=== PATIENT | male | born 1955 | race Caucasian/White ===

== ENCOUNTER → 2018-05-13 14:44 | Outpatient (CLI) | payer OTHER, MEDICAID, SELFPAY ==
[2018-05-13 16:59] LABS: Blood Urea Nitrogen 14 mg/dL (9-20); Calcium 9.5 mg/dL (8.4-10.2); Carbon Dioxide 24 mmol/L (22-32); Chloride 102 mmol/L (98-107); Cholesterol 182 mg/dL (140-199); Estimated Glomerular Filt Rate > 60.0 mL/min (>60); Glucose 93 mg/dL (80-110); HDL Cholesterol 44 mg/dL (40-60); HEMOLYSIS < 15 (0-50); LDL Cholesterol Calculated 91 mg/dL (<100); Potassium 4.4 mmol/L (3.4-5.1); Sodium 139 mmol/L (137-145); Triglycerides 233 mg/dL (35-150)
[2018-05-13 17:09] LABS: Vitamin D 25 Hydroxy (D3) 27.4 ng/mL (30.0-100.0)
[2018-05-16 20:34] LABS: Testosterone Free 141.2 pg/mL (35.0-155.0); Testosterone Total 770 ng/dL (250-1100)
== END ==
PROVIDERS: PCP Student in an Organized Health Care Education/Training Program; Visit Provider Student in an Organized Health Care Education/Training Program
DX: E29.1 Testicular hypofunction (principal); I10 Essential (primary) hypertension; E78.00 Pure hypercholesterolemia, unspecified; E55.9 Vitamin D deficiency, unspecified; R35.1 Nocturia; Z12.5 Encounter for screening for malignant neoplasm of prostate
CPT/HCPCS: 36415; 80048; 80061; 82306; 84402; 84403; G0103

== ENCOUNTER → 2019-12-07 11:24 | Outpatient (CLI) | payer MEDICARE, MEDICAID, SELFPAY ==
[2019-12-07 12:59] LABS: BUN Creatinine Ratio 22.2 (6-22); Blood Urea Nitrogen 16 mg/dL (9-20); Calcium 9.9 mg/dL (8.4-10.2); Carbon Dioxide 28 mmol/L (22-32); Chloride 102 mmol/L (98-107); Estimated Glomerular Filt Rate > 60.0 mL/min (>60); Glucose 88 mg/dL (80-110); HEMOLYSIS < 15 (0-50); Sodium 138 mmol/L (137-145)
[2019-12-07 13:26] LABS: Prostate Specific Antigen Scrn 1.05 ng/mL (0.1-4.0)
[2019-12-07 13:28] LABS: Testosterone 226 ng/dL (71.8-623)
== END ==
PROVIDERS: PCP Student in an Organized Health Care Education/Training Program; Referring Provider Student in an Organized Health Care Education/Training Program; Visit Provider Student in an Organized Health Care Education/Training Program
DX: I10 Essential (primary) hypertension (principal); E29.1 Testicular hypofunction; Z12.5 Encounter for screening for malignant neoplasm of prostate
CPT/HCPCS: 36415; 80048; 84403; G0103

== ENCOUNTER → 2019-12-24 09:16 | Outpatient (CLI) | payer MEDICARE, MEDICAID, SELFPAY ==
[2019-12-26 13:00] LABS: Fecal Immunochemical Test Negative (Negative)
== END ==
PROVIDERS: PCP Student in an Organized Health Care Education/Training Program; Referring Provider Student in an Organized Health Care Education/Training Program; Visit Provider Student in an Organized Health Care Education/Training Program
DX: Z12.11 Encounter for screening for malignant neoplasm of colon (principal)
CPT/HCPCS: 82274

== ENCOUNTER → 2020-05-12 12:22 | Outpatient (CLI) | payer MEDICARE, MEDICAID, SELFPAY ==
[2020-05-12] MEDS: COVID-19 VACC, Ad26(JANSSEN)/PF 0.5 ML IM (12:38)
== END ==
PROVIDERS: PCP Student in an Organized Health Care Education/Training Program; Visit Provider Internal Medicine
DX: Z23 Encounter for immunization (principal)
CPT/HCPCS: 0031A; 91303

== ENCOUNTER → 2020-06-01 10:05 | Outpatient (CLI) | payer MEDICARE, MEDICAID, SELFPAY ==
--- NOTE | 2020-06-01 10:08 | DI.RAD.S_ITS ---
PROCEDURE: XR LUMBAR SPINE 2-3V INDICATIONS: Back pain TECHNIQUE: 3 views of the lumbar spine were acquired. COMPARISON: None. FINDINGS: Bones: 5 [id number] vertebrae are present. There is mild straightening of normal lumbar lordosis. Moderate-severe multilevel spondylosis of the imaged spine with disc space loss and prominent degenerative endplate changes as well as prominent endplate osteophyte formation most notably at T11-T12, T12-L1, L4-L5, and L5-S1. However, findings are most severe at L4-5 and L5-S1 with there is also moderate-severe facet arthropathy at these levels. There is suggestion of neural foraminal narrowing at these levels. No acute vertebral body compression fractures. No suspicious bony lesions. Soft tissues: Overlying bowel gas pattern is normal. No suspicious soft tissue calcifications. IMPRESSION: Lumbar spine without acute fracture or malalignment. Moderate-severe multilevel lumbar spondylosis as detailed above but most severe at L4-5 and L5-S1 where there is suspected moderate neural foraminal narrowing particularly at L5-S1. Dictated by: Josh Taylor M.D. on 06/01/2020 at 16:36 Approved by: Josh Taylor M.D. on 06/01/2020 at 16:41
--- NOTE | 2020-06-01 10:08 | DI.RAD.S_ITS ---
PROCEDURE: XR KNEE LT 3V INDICATIONS: Knee pain TECHNIQUE: 3 views of the knee were acquired. COMPARISON: None. FINDINGS: Bones: No acute fractures or dislocations. No suspicious bony lesions. Mild tricompartmental degenerative changes of the left knee with mild medial femorotibial compartment joint space narrowing. Nonaggressive appearing cortically based oval sclerotic focus overlying the medial aspect of the proximal left tibial diaphysis. Soft tissues: No substantial joint effusion. No suspicious soft tissue calcifications. IMPRESSION: Left knee without acute fracture or dislocation. Tricompartmental left knee osteoarthrosis with mild medial femorotibial compartment joint space narrowing. Dictated by: Josh Taylor M.D. on 06/01/2020 at 16:32 Approved by: Josh Taylor M.D. on 06/01/2020 at 16:34
--- NOTE | 2020-06-01 10:08 | DI.RAD.S_ITS ---
PROCEDURE: XR KNEE RT 3V INDICATIONS: Knee pain TECHNIQUE: 3 views of the knee were acquired. COMPARISON: None. FINDINGS: Bones: No acute fractures or dislocations. No suspicious bony lesions. Tricompartmental degenerative changes of the right knee with medial femorotibial compartment joint space narrowing. Distal quadriceps tendon enthesophyte at the superior pole the patella. Soft tissues: No joint effusion. No suspicious soft tissue calcifications. IMPRESSION: Right knee without acute fracture or dislocation. Tricompartmental osteoarthrosis with medial femorotibial compartment joint space narrowing. Distal quadriceps enthesopathy. Dictated by: Josh Taylor M.D. on 06/01/2020 at 16:35 Approved by: Josh Taylor M.D. on 06/01/2020 at 16:36
[2020-06-01 10:34] LABS: Hematocrit 44.6 % (41-53); Hemoglobin 14.5 g/dL (13.5-17.5); Mean Corpuscular HGB Conc 32.6 % (30-36); Mean Corpuscular Hemoglobin 28.5 PG (26-34); Mean Corpuscular Volume 87.5 fL (80-100); Platelet Count 327 X10^3/uL (150-400); Red Cell Distribution Width 13.5 % (11.6-14.8); White Blood Cell Count 7.1 X10^3/uL (4.5-11.0)
[2020-06-01 11:12] LABS: Blood Urea Nitrogen 18 mg/dL (9-20); Carbon Dioxide 27 mmol/L (22-32); Chloride 99 mmol/L (98-107); Estimated Glomerular Filt Rate > 60.0 mL/min (>60); Glucose 113 mg/dL (80-110); HEMOLYSIS < 15 (0-50); Potassium 4.4 mmol/L (3.4-5.1); Sodium 136 mmol/L (137-145)
[2020-06-06 07:31] LABS: Testosterone % Fr + Wkly bound 6.1 % (9.0-46.0); Testosterone Fr+Wkly bound 29.3 ng/dL (40.0-250.0); Testosterone, Total 480.3 ng/dL (264.0-916.0)
== END ==
PROVIDERS: PCP Student in an Organized Health Care Education/Training Program; Referring Provider Student in an Organized Health Care Education/Training Program; Visit Provider Student in an Organized Health Care Education/Training Program
DX: M25.561 Pain in right knee (principal); M54.9 Dorsalgia, unspecified; M25.562 Pain in left knee; E29.1 Testicular hypofunction; I10 Essential (primary) hypertension; Z79.899 Other long term (current) drug therapy
CPT/HCPCS: 36415; 72100; 73562; 80048; 84403; 85027

== ENCOUNTER → 2020-07-10 09:22 | Outpatient (CLI) | payer MEDICARE, MEDICAID, SELFPAY ==
[2020-07-10 10:36] LABS: Hematocrit 47.6 % (41-53)
[2020-07-14 20:59] LABS: Testosterone % Fr + Wkly bound 25.2 % (9.0-46.0); Testosterone Fr+Wkly bound 212.4 ng/dL (40.0-250.0)
== END ==
PROVIDERS: PCP Student in an Organized Health Care Education/Training Program; Referring Provider Student in an Organized Health Care Education/Training Program; Visit Provider Student in an Organized Health Care Education/Training Program
DX: E29.1 Testicular hypofunction (principal)
CPT/HCPCS: 36415; 84403; 85014; 85018

== ENCOUNTER → 2020-09-04 11:27 | Outpatient (CLI) | payer MEDICARE, MEDICAID, SELFPAY ==
--- NOTE | 2020-09-04 11:29 | DI.MRI.S_ITS ---
PROCEDURE: MR LUMBAR SPINE WO CON INDICATIONS: Lumbar radiculopathy TECHNIQUE: Noncontrast sagittal T1 spin echo and T2 fast echo, sagittal STIR, axial T1 and T2 fast spin echo through the lumbar spine. In cases with scoliosis, additional coronal T2 fast spin echo may be performed. COMPARISON: None. FINDINGS: Image quality: Excellent. Alignment and Curvature: There is normal bony alignment. Bone Marrow: Degenerative endplate changes present at T12-L1, L4-5 and L5-S1. Spinal Cord: Conus medullaris terminates at the L1 level. Visualized cord demonstrates normal signal and size. Paraspinous Soft Tissues: No paravertebral masses. T12-L1: Moderate disc space narrowing with degenerative endplate changes and circumferential disc bulge results in mild central stenosis with moderate left and mild right foraminal stenosis L1-L2: The disc height is preserved. Mild circumferential disc bulge present without central or foraminal stenosis L2-L3: Disc height is preserved. Mild circumferential disc bulge with hypertrophic facet joints present. No central stenosis. Mild right and left foraminal stenosis present. L3-L4: Mild disc height loss with circumferential disc bulge and ligamentum flavum laxity combines with hypertrophic facet joints result in moderate central stenosis. Moderate right and severe left foraminal stenosis present. L4-L5: Disc height loss and circumferential disc bulge combines with hypertrophic facet joints result in moderate central stenosis. Moderate right and severe left foraminal stenosis present. L5-S1: Disc height loss with circumferential disc bulge present without central stenosis. Severe bilateral foraminal stenosis noted. IMPRESSION: 1. Multilevel degenerative disc disease and facet arthropathy resulting in varying degrees of central and foraminal stenosis including severe foraminal stenosis at L4-5 and L5-S1 Dictated by: Faraz Zazueta M.D. on 09/05/2020 at 11:58 Approved by: Faraz Zazueta M.D. on 09/05/2020 at 12:06
== END ==
PROVIDERS: PCP Student in an Organized Health Care Education/Training Program; Referring Provider Physical Medicine & Rehabilitation; Visit Provider Physical Medicine & Rehabilitation
DX: M48.07 Spinal stenosis, lumbosacral region (principal); M48.061 Spinal stenosis, lumbar region without neurogenic claudication; M51.16 Intervertebral disc disorders with radiculopathy, lumbar region; M47.26 Other spondylosis with radiculopathy, lumbar region
CPT/HCPCS: 72148

== ENCOUNTER → 2020-09-19 08:02 | Outpatient (CLI) | payer MEDICARE, MEDICAID, SELFPAY ==
[2020-09-19 12:28] LABS: COVID19 -Nasal RAPID Negative (Negative)
== END ==
PROVIDERS: PCP Student in an Organized Health Care Education/Training Program; Visit Provider Physical Medicine & Rehabilitation
DX: Z20.822 Contact with and (suspected) exposure to COVID-19 (principal)
CPT/HCPCS: 87635; C9803

== ENCOUNTER 2020-09-21 07:21 | Outpatient (CLI) | payer MEDICARE, MEDICAID, SELFPAY ==
[2020-09-21] VITALS (7 sets, daily range): BP systolic 132–186; BP diastolic 74–109; PULSE 82–94; RESP 10–18; TEMP 36.9; O2SAT 95–99
--- NOTE | 2020-09-21 07:23 | DI.RAD.S_ITS ---
PROCEDURE: PAIN L/S FACET INJ/BLK 1ST WALTER COMPARISON: [facility], MR, MR LUMBAR SPINE WO CON, 09/04/2020, 11:58. INDICATIONS: SPONDYLOSIS FINDINGS: Fluoroscopic spot filming was performed to verify placement of a spinal needles on both sides at the L4-L5 and L5-S1 levels, as labeled on the films. Appropriate location of the needle tips was confirmed by injection of iodinated contrast. IMPRESSION: Intraprocedural examination within normal limits. Dictated by: Ronald Gaming M.D. on 09/21/2020 at 10:11 Approved by: Ronald Gaming M.D. on 09/21/2020 at 10:12
[2020-09-21] MEDS: fentaNYL 100 MCG/2 ML INJ 50 MCG IV (08:17)
[2020-09-21] MEDS: MIDAZOLAM 5 MG/5 ML VIAL IV (08:20)
[2020-09-21] MEDS: BETAMETHASONE 30 MG/5 ML MDV 12 MG INJ (08:25)
[2020-09-21] MEDS: IOPAMIDOL 15 ML VIAL 3 ML INJ (08:25)
[2020-09-21] MEDS: BUPIVACAINE 0.5% (PF) VIAL 5 ML INJ (08:25)
[2020-09-21] MEDS: LIDOCAINE 1% 20 ML 10 ML INJ (08:26)
--- NOTE | 2020-09-21 08:36 | P.PCN_ITS ---
Date/Time/Diagnoses Date of procedure: 09/21/20 Time of procedure: 08:36 Pre-procedure diagnosis: 1. FACET ARTHROPATHY 2. AXIAL LBP 3. MULTILEVEL DDD Post-procedure diagnosis: same Procedure Notes Procedure: 1. FLUOROSCOPICALLY GUIDED CONTRAST CONTROLLED FACET JOINT INJECTIONS BILATERAL L4/5, L5/S1 Indications: Jamal is referred by Dr. Oconnor for treatment of Axial LBP Physician: Franco Morin Total Fluoroscopy time (seconds): 12 Total sedation minutes: 12 Complications: none Procedure in detail & Post-procedure care: FINDINGS Multilevel Facet Arthropathy with Clinically significant axial LBP DESCRIPTION OF PROCEDURE Fluoroscopically guided, contrast-controlled bilateral L4/5, L5/S1 facet joint injections. Following review of allergy and review of potential side effects and complications, including, but not necessarily limited to, infection, allergic reaction, local tissue breakdown, stroke, temporary or permanent nerve injury, paralysis, and possible , the patient indicated that the patient understood and agreed to proceed. An informed consent document was signed by the patient, witnessed by a nurse, and placed in the patient's chart. Additionally, other treatment options including medications, modalities, and physical therapy were reviewed with the patient. After review of previous anaesthesic history and IV conscious sedation the patient was deemed safe to proceed with today?s procedure with IV conscious sedation as ASA class II designation. Safety time-out was performed to confirm patient ID, procedure to be performed and site of procedure. IV sedation was accomplished with a combination of 3mg of Versed and 50mcg of Fentanyl was administered by the RN after DO order, titrated to patient comfort during the course of the procedure while the patient remained responsive to all verbal commands In the prone position, following sterile prep and drape of the lumbar region, the posterior aspect of the L4/5, L5/S1 facet joints were identified fluoroscopically. The skin was anesthetized via a 25-gauge 1.5inch needle with 1% lidocaine solution into the corresponding facet joints. At this point, a 22- gauge 3.5-inch spinal needle was atraumatically introduced and advanced under fluoroscopic guidance into the corresponding facet joints. Following negative aspiration, injections of approximately 0.2cc of Isovue 200 confirmed interar ticular placement without vascular uptake. The identical procedure was then performed at the L4/5, L5/S1 facet joints on the left. Radiological data, including multiple fluoroscopic views of the lumbosacral spine, reveal a spinal needle at the L4/5, L5/S1 facet joints bilaterally. Subsequent views show flow of contrast material both superiorly and inferiorly within the joint space without vascular or intrathecal uptake. At this point, a total of 0.5cc including a mixture of 0.25cc Marcaine and 0.25cc betamethasone was injected without complication into each of the corresponding facet joints. The patient tolerated the procedure well without signs or symptoms of complications prior to transfer to the recovery area continued monitoring without incident. The patient was then transferred to the recovery area where they were observed for an appropriate period of time after the injection. The patient reported a VAS score of 7 prior to the procedure and a post- procedure VAS of 0. POST OP INSTRUCTIONS The patient was provided a Pain Log to continue to record their response to the target-specific procedure prior to follow-up visit with their referring physician. Additionally, specific post-injection care instructions and a contact number to our office were provided if concerns arise regarding possible complications associated with the procedure are suspected.
== END 2020-09-21 08:50 | disposition home or self-care (01) ==
PROVIDERS: PCP Student in an Organized Health Care Education/Training Program; Referring Provider Physical Medicine & Rehabilitation; Visit Provider Physical Medicine & Rehabilitation
DX: M47.816 Spondylosis without myelopathy or radiculopathy, lumbar region (principal); M47.817 Spondylosis without myelopathy or radiculopathy, lumbosacral region; M51.36 Other intervertebral disc degeneration, lumbar region; M51.37 Other intervertebral disc degeneration, lumbosacral region; M54.5 Low back pain
CPT/HCPCS: 64493; 64494; 99152; J0702; J2250; J3010

== ENCOUNTER → 2020-10-31 09:46 | Outpatient (CLI) | payer MEDICARE, MEDICAID, SELFPAY ==
[2020-10-31 13:25] LABS: COVID19 -Nasal RAPID Negative (Negative)
== END ==
PROVIDERS: PCP Student in an Organized Health Care Education/Training Program; Visit Provider Physical Medicine & Rehabilitation
DX: Z20.822 Contact with and (suspected) exposure to COVID-19 (principal)
CPT/HCPCS: 87635; C9803

== ENCOUNTER 2020-11-02 12:55 | Outpatient (CLI) | payer MEDICARE, MEDICAID, SELFPAY ==
[2020-11-02] VITALS (8 sets, daily range): BP systolic 112–159; BP diastolic 59–115; PULSE 74–105; RESP 14–21; TEMP 36.1–36.3; O2SAT 95–100
--- NOTE | 2020-11-02 12:57 | DI.RAD.S_ITS ---
PROCEDURE: PAIN L/S FACET INJ/BLK 1ST [facility]ALTER COMPARISON: [facility], , PAIN L/S FACET INJ/BLK 1ST [facility]ALTER, 09/21/2020, 8:23. INDICATIONS: SPONDYLOSIS FINDINGS: Fluoroscopic spot filming was performed to verify placement of spinal needles on both sides at the L4, L5, and S1 levels, as labeled on the films. Appropriate location of the needle tips was confirmed by injection of iodinated contrast. IMPRESSION: Intraprocedural examination within normal limits. Dictated by: Ronald Gaming M.D. on 11/02/2020 at 13:13 Approved by: Ronald Gaming M.D. on 11/02/2020 at 13:13
[2020-11-02] MEDS: fentaNYL 100 MCG/2 ML INJ 50 MCG IV (13:44)
[2020-11-02] MEDS: LIDOCAINE 1% 20 ML 10 ML INJ (13:47)
[2020-11-02] MEDS: BUPIVACAINE 0.5% (PF) VIAL 5 ML INJ (13:47)
[2020-11-02] MEDS: IOPAMIDOL 15 ML VIAL 3 ML INJ (13:47)
[2020-11-02] MEDS: MIDAZOLAM 5 MG/5 ML VIAL IV (13:47)
--- NOTE | 2020-11-02 13:59 | PM.PROC.IR.1 ---
Date/Time/Diagnoses Date of procedure: 11/02/20 Time of procedure: 13:59 Pre-procedure diagnosis: 1. FACET ARTHROPATHY Post-procedure diagnosis: same Procedure Notes Procedure: 1. BILATERAL- L4, L5 and S1 DIAGNOSTIC MB BLOCKS with LA Anesthetic Indications: Jamal is referred by Dr. Oconnor for treatment of Bilateral Axial LBP. Physician: Franco Morin Total Fluoroscopy time (seconds): 12 Total sedation minutes: 12 Complications: none Procedure in detail & Post-procedure care: DESCRIPTION OF PROCEDURE Fluoroscopically guided, contrast-controlled bilateral L4, L5 and S1 medial branch blocks with 0.5cc of 0.5% Marcaine. Following review of allergy and review of potential side effects and complications, including, but not necessarily limited to, infection, allergic reaction, local tissue breakdown, nerve injury, paralysis, stroke and possible , the patient indicated that the patient understood and agreed to proceed. An informed consent document was signed by the patient, witnessed by a nurse, and placed in the patient's chart. After review of previous anaesthesic history and IV conscious sedation the patient was deemed safe to proceed with today's procedure with IV conscious sedation as ASA class II designation. Safety time-out was performed to confirm patient ID, procedure to be performed and site of procedure. IV sedation was accomplished with a combination of 3mg of Versed and 50mcg of Fentanyl was administered by the RN after DO order, titrated to patient comfort during the course of the procedure while the patient remained responsive to all verbal commands In the prone position, following sterile prep and drape of the lumbar region, the right L4, L5 and S1 anatomical location of the medial branch of the dorsal ramus was identified fluoroscopically. Subsequently an anesthetic skin wheal using 1% lidocaine solution was initiated at each of the anatomical spots. Subsequently then a 22-gauge 3.5-inch spinal needle was atraumatically introduced and advanced under fluoroscopic guidance at each of the corresponding sites at the right L4, L5 and S1 MB. After negative aspiration, 0.2cc of Isovue 200 was injected, confirming placement without vascular or intrathecal uptake. Subsequently then 0.5cc of 0.5% Marcaine solution was injected at each of the corresponding sites at the right L4, L5 and S1 medial branch locations. The identical procedure was replicated on the left. The patient tolerated the procedure well without signs or symptoms of complications prior to transfer to the recovery area continued monitoring without incident. Post-procedure, the patient was monitored initiating provocative activities to measure the amount of relief from block of the facetogenic pain. The patient reported a VAS of 7 prior to the procedure and a post-procedure VAS of 1. It has been a pleasure to assist in the diagnostic and therapeutic care of your patient. POST OP INSTRUCTIONS The patient was provided with a Pain Log to complete over the next several hours and subsequent days prior to the patient's follow up with the ordering physician. If the patient has sales support consultant relief to the solution applied, then they may be a candidate for medial branch rhizotomy. The patient is aware, was provided, once again, with a Pain Log and will follow up with the referring physician for review and clinical correlation
== END 2020-11-02 14:10 | disposition home or self-care (01) ==
LOC: RAD 12:56
PROVIDERS: PCP Student in an Organized Health Care Education/Training Program; Referring Provider Physical Medicine & Rehabilitation; Visit Provider Physical Medicine & Rehabilitation
DX: M47.816 Spondylosis without myelopathy or radiculopathy, lumbar region (principal); M47.817 Spondylosis without myelopathy or radiculopathy, lumbosacral region; M54.5 Low back pain
CPT/HCPCS: 64493; 64494; 99152; J2250; J3010

== ENCOUNTER → 2020-12-21 11:26 | Outpatient (CLI) | payer MEDICARE, MEDICAID, SELFPAY ==
[2020-12-21 13:15] LABS: Vitamin D 25 Hydroxy (D3) 38.5 ng/mL (30.0-100.0)
[2020-12-21 13:32] LABS: TSH w/ Reflex to FT4 1.83 uIU/mL (0.47-4.68)
[2020-12-21 13:33] LABS: Prostate Specific Antigen Scrn 1.77 ng/mL (0.1-4.0)
[2020-12-21 13:35] LABS: Testosterone 785 ng/dL (71.8-623)
[2020-12-21 13:52] LABS: Vitamin B12 663 pg/mL (239-931)
== END ==
PROVIDERS: PCP Student in an Organized Health Care Education/Training Program; Referring Provider Student in an Organized Health Care Education/Training Program; Visit Provider Student in an Organized Health Care Education/Training Program
DX: Z12.5 Encounter for screening for malignant neoplasm of prostate (principal); I10 Essential (primary) hypertension; E55.9 Vitamin D deficiency, unspecified; E29.1 Testicular hypofunction; G47.20 Circadian rhythm sleep disorder, unspecified type; F33.42 Major depressive disorder, recurrent, in full remission
CPT/HCPCS: 36415; 82306; 82607; 84403; 84443; G0103

== ENCOUNTER → 2021-02-22 10:48 | Outpatient (CLI) | payer MEDICARE, MEDICAID, SELFPAY ==
[2021-02-22 14:04] LABS: Testosterone 727 ng/dL (71.8-623)
== END ==
PROVIDERS: PCP Student in an Organized Health Care Education/Training Program; Referring Provider Student in an Organized Health Care Education/Training Program; Visit Provider Student in an Organized Health Care Education/Training Program
DX: E29.1 Testicular hypofunction (principal)
CPT/HCPCS: 36415; 84403

== ENCOUNTER → 2021-05-07 13:24 | Outpatient (CLI) | payer MEDICARE, MEDICAID, SELFPAY ==
[2021-05-07 17:14] LABS: COVID19 -Nasal RAPID Negative (Negative)
== END ==
PROVIDERS: PCP Student in an Organized Health Care Education/Training Program; Visit Provider Physical Medicine & Rehabilitation
DX: Z20.822 Contact with and (suspected) exposure to COVID-19 (principal)
CPT/HCPCS: 87635; C9803

== ENCOUNTER 2021-05-08 07:26 | Outpatient (CLI) | payer MEDICARE, MEDICAID, SELFPAY ==
[2021-05-08] VITALS (12 sets, daily range): BP systolic 117–140; BP diastolic 65–100; PULSE 73–86; RESP 13–20; TEMP 36.6; O2SAT 93–96
--- NOTE | 2021-05-08 07:29 | DI.RAD.S_ITS ---
PROCEDURE: PAIN L/S MED/LAT N RFA BILAT INDICATIONS: Spondylosis COMPARISON: None. FINDINGS: Fluoroscopic spot filming was performed to verify placement of spinal needles at the left L4, L5, and S1 level(s), as labeled on the films. Appropriate location(s) of the needle tip(s) was confirmed by injection of iodinated contrast. IMPRESSION: Imaging support for needle placement of left radiofrequency ablation at L4, L5, and S1. Please see procedural note for further details. Dictated by: Josh Taylor M.D. on 05/08/2021 at 9:57 Approved by: Josh Taylor M.D. on 05/08/2021 at 9:59
[2021-05-08] MEDS: fentaNYL 100 MCG/2 ML INJ (08:53)
[2021-05-08] MEDS: LIDOCAINE 1% 20 ML (08:57)
[2021-05-08] MEDS: BUPIVACAINE 0.5% (PF) VIAL 5 ML INJ (08:58)
[2021-05-08] MEDS: MIDAZOLAM 2 MG/2 ML VIAL (09:07)
--- NOTE | 2021-05-08 09:32 | P.PCN_ITS ---
Date/Time/Diagnoses Date of procedure: 05/08/21 Time of procedure: 09:32 Pre-procedure diagnosis: 1. RECALCITRANT FACET ARTHROPATHY Post-procedure diagnosis: same Procedure Notes Procedure: 1. BILATERAL L4 AND L5 MEDIAL BRANCH RADIOFREQUENCY NEUROTOMY AND S1 DORSAL RAMUS BRANCH RADIOFREQUENCY NEUROTOMY Indications: Jamal is referred by Dr. Oconnor for treatment of facet arthropathy. Physician: Franco Morin Total Fluoroscopy time (seconds): 18 Total sedation minutes: 34 Complications: none Procedure in detail & Post-procedure care: DESCRIPTION OF PROCEDURE Bilateral L4 and L5 medial branch radiofrequency neurotomy and bilateral S1 dorsal ramus radiofrequency neurotomy under fluoroscopy with conscious sedation. The patient is well known to this clinic having undergone previous facet injections with good but temporary relief. The patient has experienced appropriate, concordant relief with previous facet and median branch blocks but the patient's pain has been recalcitrant to further conservative measures. Therefore, based upon the patient's relief and persistent symptoms, the patient is considered an appropriate candidate for facet rhizotomy. All of the patient's questions regarding the risks versus benefits of the procedure, including, but not limited to, bleeding, infection, temporary as well as lasting nerve injury, paralysis, stroke, and , as well treatment alternatives were answered to satisfaction. After obtaining informed consent, denial of pertinent drug allergies, as well as being made aware of the potential risks of bleeding, infection, spinal cord trauma, paralysis, temporary and permanent nerve damage, seizure, stroke, and possible , the patient was brought to the fluoroscopy suite and positioned prone on the fluoroscopy table. The lumbar region was prepped with Betadine and covered with a fenestrated drape in the usual sterile fashion. Appropriate monitors applied including pulse oximeter, pulse, and blood pressure for regular monitoring throughout the procedure. After review of previous anaesthesic history and IV conscious sedation the patient was deemed safe to proceed with today's procedure with IV conscious sedation as ASA class II designation. Safety time-out was performed to confirm patient ID, procedure to be performed and site of procedure. IV sedation was accomplished with a combination of 3mg of Versed and 50mcg of Fentanyl administered by the RN after DO order, titrated to patient comfort during the course of the procedure while the patient remained responsive to all verbal commands. After local infiltration using 1% lidocaine, under fluoroscopic guidance, a 10- cm RF insulated Venom needle with a 10-mm active tip was positioned parallel to the junction of the right sacral ala and the superior articulating process where the S1 dorsal ramus resides. Needle placement was confirmed with motor stimulation of .5v on the right which produced local stimulation without radicular component. The stimulation was then increased to 2v with, once again, only local multifidus stimulation without radicular component. The needle was then removed and the identical procedure was performed along the length of the right L5 medial branch with motor stimulation at .7v on the right. The identical procedure was once again performed along the length of the right L4 medial branch with motor stimulation of .5v on the right. The medial branches were then anesthetised with 0.5% Marcaine. This was then followed by one discreet lesions performed at 80 degrees Celsius for 90 seconds each. The identical procedure was repeated on the left. The patient tolerated the procedure well without signs or symptoms of complications prior to transfer to the recovery area continued monitoring without incident. The patient was then transferred to the recovery area where they were observed for an appropriate period of time after the injection. The patient reported a VAS score of 9 prior to the procedure and a post-procedure VAS of 0. POST OP INSTRUCTIONS The patient was provided a Pain Log to continue to record the patient's response to the target-specific procedure prior to the patient's follow-up visit with the referring physician. Additionally, specific post-injection care instructions and a contact number to our office were provided if concerns arise regarding possible complications associated with the procedure are suspected.
== END 2021-05-08 09:48 | disposition home or self-care (01) ==
PROVIDERS: PCP Student in an Organized Health Care Education/Training Program; Referring Provider Physical Medicine & Rehabilitation; Visit Provider Physical Medicine & Rehabilitation
DX: M47.816 Spondylosis without myelopathy or radiculopathy, lumbar region (principal); M47.817 Spondylosis without myelopathy or radiculopathy, lumbosacral region
CPT/HCPCS: 64635; 64636; 99152; 99153; J2250; J3010

== ENCOUNTER → 2021-05-26 08:37 | Outpatient (CLI) | payer MEDICARE, MEDICAID, SELFPAY ==
[2021-05-26 11:24] LABS: Testosterone 259 ng/dL (71.8-623)
== END ==
PROVIDERS: PCP Student in an Organized Health Care Education/Training Program; Referring Provider Student in an Organized Health Care Education/Training Program; Visit Provider Student in an Organized Health Care Education/Training Program
DX: E29.1 Testicular hypofunction (principal)
CPT/HCPCS: 36415; 84403

== ENCOUNTER → 2021-08-07 08:29 | Outpatient (CLI) | payer MEDICARE, MEDICAID, SELFPAY ==
[2021-08-07 09:00] LABS: COVID19 -Nasal RAPID Negative (Negative)
== END ==
PROVIDERS: PCP Student in an Organized Health Care Education/Training Program; Visit Provider Physical Medicine & Rehabilitation
DX: Z20.822 Contact with and (suspected) exposure to COVID-19 (principal)
CPT/HCPCS: 87635; C9803

== ENCOUNTER 2021-08-09 09:54 | Outpatient (CLI) | payer MEDICARE, MEDICAID, SELFPAY ==
[2021-08-09] VITALS (8 sets, daily range): BP systolic 113–157; BP diastolic 57–98; PULSE 95–115; RESP 14–20; TEMP 36.9; O2SAT 95–100
--- NOTE | 2021-08-09 09:57 | DI.RAD.S_ITS ---
PROCEDURE: PAIN L INTERLAMINAR/CAUDAL INJ INDICATIONS: SPONDYLOSIS COMPARISON: [facility], , PAIN L/S MED/LAT N RFA BILAT, 05/08/2021, 9:57. FINDINGS: Fluoroscopic spot filming was performed to verify placement of a spinal needle at the L4-L5 level, as labeled on the films. Appropriate location of the needle tip was confirmed by injection of iodinated contrast. IMPRESSION: Intraprocedural examination within normal limits. Dictated by: Ronald Gaming M.D. on 08/09/2021 at 11:53 Approved by: Ronald Gaming M.D. on 08/09/2021 at 11:54
--- NOTE | 2021-08-09 10:56 | P.PCN_ITS ---
Date/Time/Diagnoses Date of procedure: 08/09/21 Time of procedure: 11:36 Pre-procedure diagnosis: FORAMINAL STENOSIS WITH LE SYMPTOMS Post-procedure diagnosis: same Procedure Notes Procedure: 1. FLUOROSCOPICALLY GUIDED CONTRAST CONTROLLED TRANSFORAMINAL EPIDURAL STEROID INJECTION - RIGHT L5/S1 TFESI Indications: Jamal is referred by Dr. Oconnor for treatment of Foraminal Stenosis with Right LE Symptoms Physician: Franco Morin Total Fluoroscopy time (seconds): 7 Total sedation minutes: 8 Complications: none Procedure in detail & Post-procedure care: FINDINGS Multilevel Central Spinal Stenosis with Nerve Root Compression DESCRIPTION OF PROCEDURE Fluoroscopically guided, contrast-controlled L4/5 translaminar epidural steroid injection. Following review of allergy and review of potential side effects and complications, including, but not necessarily limited to, infection, allergic reaction, local tissue breakdown, temporary as well as permanent nerve injury, paralysis, stroke and possible , the patient indicated that the patient understood and agreed to proceed. An informed consent document was signed by the patient, witnessed by a nurse, and placed in the patient's chart. Additionally, other treatment options including modalities, medications, and physical therapy were reviewed with the patient. After review of previous anaesthesic history and IV conscious sedation the patient was deemed safe to proceed with today?s procedure with IV conscious sedation as ASA class II designation. Safety time-out was performed to confirm patient ID, procedure to be performed and site of procedure. IV sedation was accomplished with a combination of 2mg of Versed was administered by the RN after DO order, titrated to patient comfort during the course of the procedure while the patient remained responsive to all verbal commands In the prone position, following sterile prep and drape of the lumbar region, the L4/5 translaminar space was identified fluoroscopically. The skin was anesthetized via a 25-gauge, 1.5inch needle with 1% lidocaine solution. At this point, a 22-gauge short bevel spinal needle was atraumatically introduced and advanced under fluoroscopic guidance into the region of the L4/5 translaminar space. Depth was confirmed on lateral view. Radiological data, including multiple fluoroscopic views of the lumbar spine, reveal a spinal needle at the L4/5 translaminar space. Lateral views then show placement of the needle in the epidural space. Subsequent views show contrast material flowing superiorly and inferiorly in the epidural space. No vascular or intrathecal uptake is observed. At this point, using loss of resistance technique with saline and air, the epidural space was entered. This was confirmed following negative aspiration with injection of approximately 1.5cc of Isovue 200, showing excellent epidural flow without vascular or intrathecal uptake. At this point, 1cc of 1% lidocaine solution combined with 3cc or 20mg of dexamethasone and 6mg betamethasone was injected without incident. The patient tolerated the procedure well without signs or symptoms of complications prior to transfer to the recovery area continued monitoring without incident. The patient was then transferred to the recovery area where they were observed for an appropriate period of time after the injection. The patient reported a VAS score of 6 prior to the procedure and a post- procedure VAS of 0. POST OP INSTRUCTIONS The patient was provided a Pain Log to continue to record their response to the target-specific procedure prior to follow-up visit with their referring physician. Additionally, specific post-injection care instructions and a contact number to our office were provided if concerns arise regarding possible complications associated with the procedure are suspected.
[2021-08-09] MEDS: MIDAZOLAM 2 MG/2 ML VIAL (11:22)
[2021-08-09] MEDS: BETAMETHASONE 30 MG/5 ML MDV 6 MG INJ (11:28)
[2021-08-09] MEDS: DEXAMETHASONE 10 MG/ML VIAL 20 MG INJ (11:28)
[2021-08-09] MEDS: IOPAMIDOL 15 ML VIAL 3 ML INJ (11:28)
[2021-08-09] MEDS: BUPIVACAINE 0.25% (PF) VIAL 2 ML INJ (11:28)
--- NOTE | 2021-08-09 11:49 | PC.NURSE ---
Patient HR elevated - 113-[address] Morin aware. Patient encouraged to follow up with his PCP and assisted living coordinator. He reports this is normal for him. He takes Metoprolol daily. He will take his dose upon discharge today. Dr. Morin ok with discharge home.
== END 2021-08-09 11:57 | disposition home or self-care (01) ==
LOC: RAD 09:56
PROVIDERS: PCP Student in an Organized Health Care Education/Training Program; Referring Provider Physical Medicine & Rehabilitation; Visit Provider Physical Medicine & Rehabilitation
DX: M48.07 Spinal stenosis, lumbosacral region (principal); M51.17 Intervertebral disc disorders with radiculopathy, lumbosacral region
CPT/HCPCS: 62323; J0702; J1100; J2250

== ENCOUNTER → 2021-10-18 10:13 | Outpatient (CLI) | payer MEDICARE, MEDICAID, SELFPAY ==
[2021-10-23 21:22] LABS: Fecal Immunochemical Test Negative (Negative)
== END ==
PROVIDERS: PCP Student in an Organized Health Care Education/Training Program; Referring Provider Student in an Organized Health Care Education/Training Program; Visit Provider Student in an Organized Health Care Education/Training Program
DX: Z12.11 Encounter for screening for malignant neoplasm of colon (principal)
CPT/HCPCS: 82274

== ENCOUNTER → 2021-11-10 08:52 | Outpatient (CLI) | payer MEDICARE, MEDICAID, SELFPAY ==
[2021-11-10 09:28] LABS: Hematocrit 47.4 % (41-53); Hemoglobin 15.7 g/dL (13.5-17.5); Mean Corpuscular HGB Conc 33.2 % (30-36); Mean Corpuscular Hemoglobin 29.8 PG (26-34); Mean Corpuscular Volume 89.8 fL (80-100); Platelet Count 290 X10^3/uL (150-400); Red Blood Cell Count 5.28 X10^6/uL (4.5-5.9); Red Cell Distribution Width 13.3 % (11.6-14.8); White Blood Cell Count 7.2 X10^3/uL (4.5-11.0)
[2021-11-10 10:16] LABS: BUN Creatinine Ratio 27.6 (6-22); Blood Urea Nitrogen 21 mg/dL (9-20); Calcium 9.5 mg/dL (8.4-10.2); Carbon Dioxide 27 mmol/L (22-32); Chloride 101 mmol/L (98-107); Estimated Glomerular Filt Rate > 60 mL/min (>60); Glucose 117 mg/dL (80-110); HEMOLYSIS < 15 (0-50); Potassium 4.4 mmol/L (3.4-5.1); Sodium 139 mmol/L (137-145)
[2021-11-10 10:43] LABS: Prostate Specific Antigen 1.26 ng/mL (0.10-4.00)
[2021-11-10 10:46] LABS: Testosterone 420 ng/dL (71.8-623)
== END ==
PROVIDERS: PCP Student in an Organized Health Care Education/Training Program; Referring Provider Student in an Organized Health Care Education/Training Program; Visit Provider Student in an Organized Health Care Education/Training Program
DX: I10 Essential (primary) hypertension (principal); E29.1 Testicular hypofunction; Z12.5 Encounter for screening for malignant neoplasm of prostate; Z79.899 Other long term (current) drug therapy
CPT/HCPCS: 36415; 80048; 84153; 84403; 85027; G0103

== ENCOUNTER → 2021-12-10 09:02 | Outpatient (CLI) | payer MEDICARE, MEDICAID, SELFPAY ==
--- NOTE | 2021-12-10 | DI.CT.S_ITS ---
PROCEDURE: CT LUMBAR SPINE WO CON INDICATIONS: SPINAL STENOSIS TECHNIQUE: Noncontrast 3 mm thick sections acquired from the T12 level to the sacrum. Sagittal and coronal reformats were constructed. For radiation dose reduction, the following was used: automated exposure control. COMPARISON: FINDINGS: Image quality: Excellent. Bones: No acute fracture. There is moderate multilevel spondylosis. Trace dextroconvex curvature at L4. Multilevel disc space height loss, particularly at L4-L5, L5-S1, and T12-L1. No spondylolisthesis. Suspected central narrowing is present at T12-L1, L3-L4, L4-L5, L5-S1. There is also suspected neural foraminal narrowing, most significantly at L5-S1. Other levels are also involved, including L3-L4, L4-L5, and T12-L1. Foraminal narrowing appears worse on the left. Soft tissues: No retroperitoneal masses or hematomas. Visualized aorta is normal in caliber. Gallstone partially visualized. IMPRESSION: At least moderate spondylosis as described above. MRI would be better to compare to prior imaging if needed. Dictated by: Erlin Ybarra M.D. on 12/10/2021 at 16:12 Approved by: Erlin Ybarra M.D. on 12/10/2021 at 16:21
== END ==
PROVIDERS: PCP Student in an Organized Health Care Education/Training Program; Referring Provider Orthopaedic Surgery Orthopaedic Surgery of the Spine; Visit Provider Orthopaedic Surgery Orthopaedic Surgery of the Spine
DX: M48.061 Spinal stenosis, lumbar region without neurogenic claudication (principal); M47.816 Spondylosis without myelopathy or radiculopathy, lumbar region
CPT/HCPCS: 72131

== ENCOUNTER → 2021-12-13 09:20 | Outpatient (CLI) | payer MEDICARE, MEDICAID, SELFPAY ==
[2021-12-13 11:01] LABS: Add Manual Diff / Slide Review NO; Basophils Absolute Auto 0 /uL (0-100); Basophils Percent Auto 0.3 % (0-2); Eosinophils Absolute Auto 100 /uL (0-450); Eosinophils Percent Auto 2.4 % (2-4); Hematocrit 47.8 % (41-53); Hemoglobin 15.9 g/dL (13.5-17.5); Lymphocytes Absolute Auto 2100 /uL (1100-4500); Lymphocytes Percent Auto 34.1 % (25-40); Mean Corpuscular HGB Conc 33.2 % (30-36); Mean Corpuscular Hemoglobin 29.2 PG (26-34); Mean Corpuscular Volume 87.9 fL (80-100); Monocytes Absolute Auto 500 /uL (0-900); Neutrophils Absolute Auto 3500 /uL (1500-7000); Neutrophils Percent Auto 55.2 % (50-75); Platelet Count 237 X10^3/uL (150-400); Red Blood Cell Count 5.43 X10^6/uL (4.5-5.9); Red Cell Distribution Width 12.3 % (11.6-14.8); White Blood Cell Count 6.3 X10^3/uL (4.5-11.0)
[2021-12-13 11:08] LABS: BUN Creatinine Ratio 33.3 (6-22); Blood Urea Nitrogen 28 mg/dL (9-20); Calcium 9.1 mg/dL (8.4-10.2); Carbon Dioxide 28 mmol/L (22-32); Chloride 100 mmol/L (98-107); Estimated Glomerular Filt Rate > 60 mL/min (>60); Glucose 92 mg/dL (80-110); HEMOLYSIS < 15 (0-50); Potassium 4.1 mmol/L (3.4-5.1); Sodium 138 mmol/L (137-145)
[2021-12-13 11:09] LABS: Hemoglobin A1C% w Est Avg Glu 5.6 % (4.0-6.0)
== END ==
PROVIDERS: PCP Student in an Organized Health Care Education/Training Program; Referring Provider Orthopaedic Surgery Orthopaedic Surgery of the Spine; Visit Provider Orthopaedic Surgery Orthopaedic Surgery of the Spine
DX: Z01.818 Encounter for other preprocedural examination (principal); R73.9 Hyperglycemia, unspecified; Z01.812 Encounter for preprocedural laboratory examination
CPT/HCPCS: 36415; 80048; 83036; 85025; 93005; 93010

== ENCOUNTER → 2022-01-28 09:55 | Outpatient (CLI) | payer MEDICARE, MEDICAID, SELFPAY ==
[2022-01-28 10:46] LABS: COVID19 -Nasal RAPID Negative (Negative)
== END ==
PROVIDERS: PCP Student in an Organized Health Care Education/Training Program; Referring Provider Orthopaedic Surgery Orthopaedic Surgery of the Spine; Visit Provider Orthopaedic Surgery Orthopaedic Surgery of the Spine
DX: Z20.822 Contact with and (suspected) exposure to COVID-19 (principal)
CPT/HCPCS: 87635; C9803

== ENCOUNTER 2022-01-30 07:42 | Inpatient (IN) | payer MEDICARE, MEDICAID, SELFPAY ==
[2022-01-15 08:48] VITALS: BMI 26.9
[2022-01-30] VITALS (18 sets, daily range): BP systolic 108–160; BP diastolic 78–111; PULSE 80–136; RESP 8–87; TEMP 35.9–37.6; O2SAT 92–99; BMI 26.9
[2022-01-30] MEDS: LACTATED RINGERS 1,000 ML 84 ML IV ×2 (08:31→14:15)
--- NOTE | 2022-01-30 10:20 | PM.PREOP ---
Pre-operative Note COVID-19 COVID-19 status: Negative Result date/Date tested (Pos, Neg/Pending): 01/29/22 Criteria for continued procedure: Expected advancement of disease process, Possibility delay results in more complex future surgery or treatment, Increased loss of function, Continuing or worsening of significant or severe pain, Deterioration of the patient's condition or overall health and Delay expected to result in less-positive ultimate med/surg outcome Interval Note History & Physical reviewed/Exam performed by Physician: Yes Changes to H&P: No
--- NOTE | 2022-01-30 10:54 | SUR.PREOP ---
, Sharon, updated on delay.
[2022-01-30] MEDS: GABAPENTIN 600 MG TABLET PO ×2 (13:08→20:34)
[2022-01-30] MEDS: CEFAZOLIN 2 GM/100 ML PREMIX 100 ML IV ×2 (13:26→20:34)
--- NOTE | 2022-01-30 14:09 | SUR.OPER ---
Prone on spine table, head in foam head support, padded chest and pelvic supports, gel pad at knees, lower legs supported by pillows; nipples, genitalia and toes free of pressure, arms secured on foam padded arm boards at <90 degrees abduction. Tape over blanket at thigh secured to table. Gel pad between heels
[2022-01-30] MEDS: BUPIVACAINE 0.25% (PF) 60 ML, EPINEPHrine 0.3 MG INJ (14:17)
[2022-01-30] MEDS: BUPIVACAINE LIPOSOME 266 MG/20 ML VIAL INJ (14:18)
--- NOTE | 2022-01-30 16:12 | DI.RAD.S_ITS ---
PROCEDURE: XR LUMBAR SPINE 2-3V INDICATIONS: L4-5, L5-S1 TLIF TECHNIQUE: Intraoperative fluoroscopic views of the lumbar spine were acquired. COMPARISON: [facility], , XR LUMBAR SPINE 2-3V, 06/01/2020, 10:25. FINDINGS: Bones: Fluoroscopic intraoperative images demonstrate posterior fixation and discectomy from L4-S1. IMPRESSION: Posterior fusion and discectomy from L4-S1. Dictated by: Vivi Barrios M.D. on 01/30/2022 at 16:29 Approved by: Vivi Barrios M.D. on 01/30/2022 at 16:29
--- NOTE | 2022-01-30 16:24 | P.OP_ITS ---
Operative Date/Time/Diagnoses Date of procedure: 01/30/22 Time of procedure: 14:00 Pre-op diagnosis: 1. L4-5, L5-S1 spinal stenosis 2. L4-5, L5-S1 spondylosis with radiculopathy Post-op diagnosis: same Procedure & Clinicians Procedure: 1. L4-5, L5-S1 Postero-lateral and posterior interbody fusion 2. L4-5, L5-S1 interbody cage placement. 3. L4-5, L5-S1 decompressive laminectomy with bilateral facetecomies 4. L4-5, L5-S1 Posterior segmental instrumentation 5. Powersite of bone marrow from iliac crest 6. Utilization of microsurgical technique and operating microscope 7. Utilization of robotic assisted navigation Same procedure as scheduled: Yes Indications: Patient has been having chronic back pain and worsening lumbar radiculopathy. Patient failed multiple conservative management with worsening pain weakness and numbness in his lower extremity. Patient has been having difficulty performing activity of daily living. After discussing risks benefits of treatment options, patient elected proceed with surgery. Surgeon: Debby Headley Maintenance Team Leader: Tristin Zavala Click Yes if Unassisted: No Anesthesia Type: General Operative Notes Closure Type: primary Specimen(s): none sent Prosthetic devices, grafts, tissues, transplants, or devices: GLobus CREO MIS screws, Rise cages Applied: catheter Estimated Blood Loss (mL): 150 Blood products transfused: none Procedure in detail: Patient was seen in the preoperative area. Risks and benefits of the surgery was discussed with the patient. Informed consent was obtained from the patient and placed in the chart. Surgical site was marked. Patient was taken to the operative room. General anesthesia was administered. Prophylactic antibiotic was given to the patient less than 30 min before the incision was made. Patient was placed into a prone position on the Won table. Patient's back was then prepped and draped in the sterile fashion. Time-out was performed at this time. After patient was prepped and draped, patient's PSIS was palpated and marked bilaterally. Small 1 cm incision was made over the PSIS for placement of the reference probes. Two trocar was placed into the PSIS 1 on each side. The reference probe was attached to the trocar of the reference apparatus. At this time the C-arm imaging was used to confirm AP and lateral of L4-L5, L5- S1 vertebrae and merged the C-arm imaging using the H2020 robotic navigation system with the CT of the lumbar spine. After successful merging was completed and confirmed, skin marker was used to betina out the skin incision using the H2020 robotic arm. Bilateral incision was made at this time. Pre templated trajectory was used and guided using the H2020 robotic navigation system for bilateral L4, L5, S1 pedicle screw placement. This was done by using the robotic arm to guide the high-speed bur to make a cortical entry point. Next a drill was placed also using the robotic arm and guided using the navigation system drilling partially through bilateral L4, L5 and S1 pedicles. Next L4, L5, S1 pedicle screws it was pre templated and measured was placed onto the power front loader residential driver and inserted into the pedicles bilaterally. After all 6 screws were placed C-arm imaging was taken of both AP and lateral to confirm the placement. Excellent placement of the screws were confirmed and a matched precisely with the pre planned screw placement using the navigation system. MARs retractor was inserted using [employer].comivation guidence. Globus MARS retractors was placed inside the incision and docked onto the L4 and L5 lamina. Using microsurgical technique and operating microscope, a L4, L5 laminectomy and L4-5, L5-S1 facetectomy was performed using a Kerrison rongeur. Patient was found have severe lateral recess and neural foramen stenosis which was fully decompressed after the laminectomy facetectomy. More than 75% of the facets were removed during the process of decompression rendering L4-5, L5-S1 level grossly unstable and required a fusion procedure at the same time. The disc space at L4-5, L5-S1 was identified, and a total diskectomy was performed at L4- 5, L5-S1 level. The endplates were decorticated using a rasp and shaver. The total diskectomy and decortication was performed at L4-5, L5-S1 level in order to to accomplish a L4-5, L5-S1 fusion. The local bone from the laminectomy and facetectomy was saved for local bone grafting. After the total diskectomy and decortication was completed, Trifecta bone graft material was combined with local bone that was harvested earlier. At this time, a separate skin is incision was made over the iliac crest. A Jamshidi needle was inserted into the iliac crest through a separate skin incision. 5 cc of bone marrow aspiration was obtained through the separate skin incision using a Jamshidi needle from the iliac crest. The bone marrow aspiration was combined with local bone and the Trifecta bone grafting material. The bone grafting material was placed into the L4-5, L5-S1 interbody space along with a expandable cage. The cage was expanded to its maximum height using the torque limiting screwdriver. The disc preparation as well as the cage insertion were also performed under navigation guidance. After the cage was placed, AP and lateral C-arm imaging was taken to confirm placement of the cage and excellent position was confirmed. Globus MARS retractor was inserted and docked onto the L4-5, L5-S1 posterolateral gutter on the right side. Using the power drill, posterior- lateral decortication was performed at L4-5, L5-S1 level until bleeding cortical bone was identified. The remaining bone grafting material was placed into the L4-5, L5-S1 posterior lateral gutter he order to accomplish posterolateral fusion at the L4-5, L5-S1 level. At this time the tulips were attached to the L4, L5, S1 pedicle screw shanks. After measuring the length of the rods, they were inserted into the tulips of the pedicle screws and locked in place using locking caps and torque limiting screwdriver bilaterally. Total 8 caps and 2 titanium rods was used in order to complete the posterior instrumentation construct. After all the hardware was placed, and confirmed with AP and lateral C-arm imaging, the wound was then irrigated with sterile normal saline and packed with Ray-Odilon gauze for 3 min to accomplish hemostasis. After the gauze was removed the deep fascia was closed with #1 Vicryl suture. The subcutaneous layer was closed with 2-0 Vicryl. The skin was closed with skin radames. Patient tolerated the procedure well. There were no complications. Neuro monitoring system was used to monitor patient's neurologic status throughout entire procedure. There was no disturbance of the neural monitoring signals throughout the case. Complications: none Post-operative Condition: stable Disposition: PACU Plan for aftercare: Admit to inpatient hospital
[2022-01-30] MEDS: fentaNYL 100 MCG/2 ML INJ IV ×2 (16:51→17:00)
[2022-01-30] MEDS: HYDROMORPHONE 2 MG INJ IV (17:07)
[2022-01-30] MEDS: HYDROCODONE/ACET 5/325 TABLET 1 TAB PO (17:14)
[2022-01-30] MEDS: ONDANSETRON 4 MG/2 ML INJ IV (17:21)
[2022-01-30] MEDS: hydrOXYzine 50 MG/ML INJ 25 MG IM (17:26)
--- NOTE | 2022-01-30 18:32 | SUR.PHASEI ---
1635; pt came out of OR with stable vital signs, pt placed on 3L of O2 d/t low RA sats of 88%. Pt appears delirious at this time, eyes open, moving all fours, following commands appropriately but not verbally respondiing. Md Sparks aware and at bedside. Pt appears to be in pain d/t grimacing and movement. Pt briefly consoled by reorientation. Pt pain was treated and he slowly improved, responding verbally and reporting pain in lower back, as patient improved he stopped moving his legs and writhing as he did when he came out of the OR. Pt transferred to the floor where his bandages were found to be soiled, incision was visualized and had bloody drainage. MD Headley called and his PA Walker came to the bedside to assess. Pt transferred with stable vital signs, and neuro intact.
--- NOTE | 2022-01-30 18:44 | PC.NURSE ---
Patient is alert and oriented x4. He had some bleeding from his anterior portion of both incisions. Dressing changed, PA came up and added 2 radames to each side and the bleeding stopped. 4x4s, abd pad, with Medipore tape applied. Patient has feeling to his lower back, he denies numbness or tingling and is resting comfortably.
[2022-01-30] MEDS: SODIUM CHLORIDE 0.9% 1,000 ML 100 ML IV (19:00)
[2022-01-30] MEDS: OXYCODONE IR 5 MG TABLET 10 MG PO ×2 (19:24→23:31)
[2022-01-30] MEDS: INFLUENZA HD VACCINE 0.7 ML SYRINGE IM (19:49)
[2022-01-30] MEDS: DOCUSATE 100 MG CAPSULE PO (20:34)
[2022-01-30] MEDS: SENNOSIDES 8.6 MG TABLET 17.2 MG PO (20:34)
[2022-01-30] MEDS: CYCLOBENZAPRINE 10 MG TABLET PO (21:45)
[2022-01-30] MEDS: ACETAMINOPHEN 325 MG TABLET 650 MG PO (21:45)
[2022-01-30] MEDS: hydrOXYzine pamoate 25 MG CAPSULE PO (23:31)
[2022-01-31] VITALS (7 sets, daily range): BP systolic 114–130; BP diastolic 74–88; PULSE 86–112; RESP 14–20; TEMP 36.7–37.2; O2SAT 92–95
[2022-01-31] MEDS: CEFAZOLIN 2 GM/100 ML PREMIX 100 ML IV (04:48)
[2022-01-31] MEDS: HYDROMORPHONE 0.5 MG INJ IV (04:54)
[2022-01-31] MEDS: hydrOXYzine pamoate 25 MG CAPSULE PO (04:54)
[2022-01-31 05:19] LABS: Hematocrit 40.6 % (41-53); Hemoglobin 13.1 g/dL (13.5-17.5)
--- NOTE | 2022-01-31 08:24 | PM.PNPO.1 ---
Subjective Subjective Date Patient Seen: 01/31/22 Time Patient Seen: 08:25 Interval history: Patient is complaining of moderate to severe low back pain this morning. His is at bedside. He is somewhat confused this morning. He is not worked with physical therapy or occupational therapy yet. She still has a catheter in place. He notes his pain is tolerable with the medications but feels he is still having breakthrough pain. Denies any new numbness or tingling, no nausea or vomiting. Exam Vital Signs (past 8 hours): - 01/31/22 00:45 01/31/22 05:00 Temperature 98.9 F 98.7 F Pulse Rate 106 H 86 Respiratory Rate 14 20 Blood Pressure 130/75 124/83 Pulse Oximetry 94 95 Oxygen Flow Rate 4 3 Oxygen Delivery Method Nasal Cannula Oxygen Flow Rate 3 Narrative Exam Narrative: Pleasant 66-year-old male, resting comfortably in bed, no acute distress. He is alert and oriented x3. Lumbar incision dressing was clean, dry, intact, no surrounding erythema or induration. This was reinforced after new radames were applied last night. Bilateral lower extremity: Motor functions are grossly intact, sensation is grossly intact to light touch, calves are soft and nontender to palpation. 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 posterior instrumentation-Robot Debby Headley MD Postoperative day: 1 Postoperative status: marginal pain control Postoperative status narrative: -stable status post L4-5, L5-S1 TLIF with marginal pain control Postoperative plan narrative: -mobilize with PT/OT. Weightbearing as tolerated with front wheel walker or cane. No bending, lifting, twisting x6 weeks -continue with multimodal pain management. Change Tylenol to scheduled in added tramadol for breakthrough pain -discontinue urinary catheter today -disposition: Likely home tomorrow, depending on progress with PT and pain management
[2022-01-31] MEDS: METOPROLOL ER 25 MG TABLET PO (08:29)
[2022-01-31] MEDS: GABAPENTIN 600 MG TABLET PO ×3 (08:29→20:19)
[2022-01-31] MEDS: hydroCHLOROthiazide 25 MG TABLET PO (08:29)
[2022-01-31] MEDS: CITALOPRAM 10 MG TABLET 20 MG PO (08:29)
[2022-01-31] MEDS: DOCUSATE 100 MG CAPSULE PO ×2 (08:29→20:21)
[2022-01-31] MEDS: CELECOXIB 200 MG CAPSULE PO (08:30)
[2022-01-31] MEDS: lisinopriL 20 MG TABLET PO (08:30)
--- NOTE | 2022-01-31 10:10 | PT.IIE ---
Current Diagnoses Unspecified thoracic, thoracolumbar and lumbosacral intervertebral disc disorder (01/30/22) Surgery Performed Operation Date: 01/30/22 09:15 Actual Procedures p L4-5, L5-S1 TLIF w. 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 Hypogonadism in male (04/23/16) Pure hypercholesterolemia (07/30/16) Physical Therapy Inpatient Evaluation/Re-Eval M1 PT/OT-IP Prior Functional Status Start: 01/31/22 12:45 Freq: NEEDED Status: Active Protocol: Document 01/31/22 10:10 AB (Rec: 01/31/22 13:10 AB [email or web address]) Medical Review Prior Functional Status Medical History Reviewed Yes Communication able to make needs known but with confusion and needs one step cues with all tasks Mobility and Gait pt stated that he has good days and bad days: on good days, he is modified independent witha ll mobilities and ambulation using a quad cane but on bad days, his spouse or son assist him to ambulate using a quad cane Social History Household Members spouse,children Living Arrangements House Number of Floors (Floors) One Floor Number of Stairs To Enter/Railing? 3 platform steps to enter the house Home Environment Standard Height Toilet,Tub/ Shower Home Equipment Four Wheel Walker,Quad Cane, Shower Seat without Backrest, Grab Bars In Shower Additional Social History Comment has his spouse and 3 sons to assist him at home M2 PT-IP Current Condition Start: 01/31/22 12:45 Freq: NEEDED Status: Active Protocol: Document 01/31/22 10:10 AB (Rec: 01/31/22 13:10 AB [email or web address]) Physical Therapy Current Condition Current Condition Evaluation Date 01/31/22 Treatment Diagnosis s/p L4-5, L5S1 TLIF; difficulty in walking Onset Date 01/30/22 M3 PT-IP Subjective Start: 01/31/22 12:45 Freq: NEEDED Status: Active Protocol: Document 01/31/22 10:10 AB (Rec: 01/31/22 13:10 AB [email or web address]) Subjective Physical Therapy Visit Type Type Initial Evaluation Visit Start Time 10:10 Visit Stop Time 11:00 Total Visit Minutes 50 Number of VIRTUAL REALITY SPECIALIST Visits 0 Physical Therapy Visit Comments Patient Comments agreeable to do PT Therapy Pain Assessment Pain When Pain Assessed During Mobility Pain Present Pain Present Pain Reported Location lower back Intensity 4 Scale Used Numeric (0 - 10) Pain Management Techniques Apply Cold,Distraction, Modification of Treatment,Re- positioning,Timing of Activity with Medications M4 PT-IP Mobility and Gait Start: 01/31/22 12:45 Freq: NEEDED Status: Active Protocol: Document 01/31/22 10:10 AB (Rec: 01/31/22 13:10 AB [email or web address]) PT-Bed Mobility Assessment Rolling Type of Rolling Log Rolling Level of Assist Maximal Assistance,1 Person Assistance,2 Person Assistance Supine to Sit Supine to Sit Maximum Assistance,1 Person Assistance,2 Person Assistance Sit to Supine Sit to Supine Maximum Assistance PT-Transfer Assessment Sit to and From Stand Sit to and from Stand Maximum Assistance,2 Person Assistance,Use of Upper Extremities Equipment Transfer Assistive Device Gait Belt,Front Wheeled Walker Orthotic/Prosthetic Devices or Brace: No Transfers Transfer Destination Chair Transfer Technique Stand Step Pivot Transfer Ability Level of Assist Maximum Assistance,2 Person Assistance,Use of Upper Extremities Comments Mobility Comments educated pt on back precautions and log roll bed mobility. Pt with memory/ processing issues and needs repeated one step cues with all tasks.BP in supine: 114/84 MS: 113. completed log roll supine to sit max Ax 1-2 and max cues. able to sit on EOB CGA. BP in sittin/91 MS: 128. completed scooting max A and cues. pt rested sitting on EOB . No c/o dizziness/nausea. BP checked again after a few minutes: 119/82 MS 130. informed nurse regardign increase HR and staying elevated despite resting. Pt completed sit to stand max A x 2 and max cues. stated that he needs to use the urinal again. assisted with urinal. able to maintain standing min A using FWW for support while using the urinal. pt completed step transfer to the chair using fWW max A x 2 and max cues. (+) R knee buckling and unsteady steps with max cues for safety. pt sat on chair. BP checked: 88/ 61 MS: 135. pt rested seated on the chair and BP checked again after a few minutes: 108 /72 MS: 125. positioned pt on the chair and LE elevated and reclined pt . nurse aware of BP. BP checked again : 117 /88 MS 128. Left pt with nurse in room Gait Assessment Comments Gait Comments able to take a few steps during transfers PT-Balance Assessment Sitting Balance and Reactions Static Sitting Balance Ability Fair Dynamic Sitting Balance Ability Poor Standing Balance and Reactions Static Standing Balance Ability Poor Dynamic Standing Balance Ability Poor Device Used FWW M5 PT-IP Objective Assessments Start: 01/31/22 12:45 Freq: NEEDED Status: Active Protocol: Document 01/31/22 10:10 AB (Rec: 01/31/22 13:10 AB [email or web address]) Orientation Orientation/Cognition Level of Alertness Confusional State Orientation Name,Birthday Safety Awareness Decreased Safety Awareness Memory Description Short Term Impaired,Rib Trim Separator Impaired Gross Range of Motion Lower Extremity ROM Assessment Within Functional Limits Strength Lower Extremity Strength Hip 4-/5 Knee 4-/5 Sensation Assessment Sensation Gross Sensation WNL Muscle Tone Muscle Tone WNL Yes M6 PT-IP Treatment Start: 01/31/22 12:45 Freq: NEEDED Status: Active Protocol: Document 01/31/22 10:10 AB (Rec: 01/31/22 13:10 AB [email or web address]) Physical Therapy Treatment Education Education Provided Precautions,Weight Bearing Status,Post-Op Packet,Safety M7 PT-IP Assessment and Plan Start: 01/31/22 12:45 Freq: NEEDED Status: Active Protocol: Document 01/31/22 10:10 AB (Rec: 01/31/22 13:10 AB [email or web address]) PT Summary Assessment and Plan Potential Rehabilitation Potential Fair Status of Condition at Evaluation Evolving Summary Impairments Pain,ROM,Strength,Balance, Coordination,Sensation,Tone, Cognition,Bed Mobility, Transfers,Gait,Activity Tolerance Assessment Summary Pt requiring max A x 2 with mobility using FWW and unable tolerate much activity with increase confusion/ difficulty following directions. MS increase to 135. pt will require SNF rehab at this time . when appropriate; will conduct caregiver training and stair climbing training. will continue to assess progress. Goals Bed Mobility Goal Standby Assistance Transfer Goal Standby Assistance,Front Wheeled Walker Gait Goal Standby Assistance,Front Wheel Walker Gait Distance 150 Other Goals up/down 3 platform steps using FWW CGA Days to Meet Goals 10 Frequency of Treatment Frequency Of Treatment Twice a Day Treatment Plan Physical Therapy Treatment Plan Bed Mobility Training,Transfer Training,Gait Training, Therapeutic Exercise,Balance Retraining,Post Op Education, Discharge Planning,Hot or Cold Pack,Neuromuscular Re-ed, Coordination Retraining,Manual Therapy Precautions Lumbar Precautions Log Roll,No Twisting,Limit Bending,Lifting Restriction of 10 lbs,Gait Belt above Incisional Area Recommendations To Nursing Amount of Assist Needed 2 Person Assist Discharge Recommendations PT Discharge Recommendations SNF Rehab Equipment Needed for Home Before FWW if pt goes home Discharge Transportation Needs at Discharge Wheelchair/Cabulance
[2022-01-31] MEDS: OXYCODONE IR 5 MG TABLET 10 MG PO ×3 (10:50→20:19)
--- NOTE | 2022-01-31 11:13 | OT.IP.EVAL ---
Current Diagnoses Unspecified thoracic, thoracolumbar and lumbosacral intervertebral disc disorder (01/30/22) Surgery Performed Operation Date: 01/30/22 09:15 Actual Procedures p L4-5, L5-S1 TLIF w. 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 (Rec: 01/31/22 13:45 [facility] [id number]) Medical Review Prior Functional Status Medical History Reviewed Yes Communication able to make needs known but with confusion and needs one step cues with all tasks Mobility and Gait pt stated that he has good days and bad days: on good days, he is modified independent with all mobilities and ambulation using a quad cane but on bad days, his spouse or son assist him to ambulate using a quad cane Activities of Daily Living and IADL's Pt states at times needing more assist. Social History Household Members spouse,family Living Arrangements House Number of Floors (Floors) One Floor Number of Stairs To Enter/Railing? 3 platform steps to enter the house Home Environment Standard Height Toilet,Tub/ Shower Home Equipment Four Wheel Walker,Quad Cane, Shower Seat without Backrest, Grab Bars In Shower Additional Social History Comment has his spouse and 3 sons to assist him at home M2 OT-IP Current Condition Start: 01/31/22 13:26 Freq: Status: Active Protocol: Document 01/31/22 10:15 [facility] (Rec: 01/31/22 13:45 [facility] [id number]) Occupational Therapy Current Condition Current Condition Evaluation Date 01/31/22 Treatment Diagnosis S/p L4-5, L5-S1 TLIF Diagnosis Onset Date 01/30/22 Post Operative Precautions Lumbar Precautions Log Roll,No Twisting,Limit Bending,Lifting Restriction of 10 lbs,Gait Belt above Incisional Area M3 OT- IP Subjective and Pain Start: 01/31/22 13:26 Freq: Status: Active Protocol: Document 01/31/22 10:15 [facility] (Rec: 01/31/22 13:45 [facility] [id number]) OT- Subjective Occupational Therapy Visit Type Type Initial Evaluation Visit Start Time 10:15 Visit Stop Time 11:13 Total Visit Minutes 58 Occupational Therapy Visit Comments Patient Comments Pt agreed to get up and with PT when OT came to see pt. Pt needing extensive two person assist for mobility at this time. Patient/Caregiver Goals TO get better. OT Pain Assessment Pain When Pain Assessed At Rest Pain Present Pain Present Pain Reported Location lower back Intensity 4 Scale Used Numeric (0 - 10) M4 OT- IP ADL's Start: 01/31/22 13:26 Freq: Status: Active Protocol: Document 01/31/22 10:15 [facility] (Rec: 01/31/22 13:45 [facility] [id number]) OT [id number] Comments OT Self-Feeding Comments Not at meal time. OT ADL-Grooming General Evaluation Grooming Ability Standby Assistance Comments OT Grooming Comments while seated in the recliner OT ADL-Oral Care General Eval Oral Care Ability Independent Areas of Assistance Retrieving/Set-Up of Items Comments Oral Care Comments WHile seated in the recliner. Educated when able to stand for oral care needs that it would be best to spit into a cup to best follow his back precautions. OT ADL-Dressing General Eval Lower Body Dressing Ability Maximum Assistance Areas Needing Assistance Socks Comments OT Dressing Comments Pt a bit groggy and initiated education of LB dressing needs . To go over more tomorrow as hopefully pt will be thinking better. OT ADL-Toileting General Evaluation Toileting Ability Moderate Assistance Areas Needing Assistance Manage Clothing Devices Toileting Assistive Devices Urinal Comments OT Toileting Comments Assist to help hold the urinal in place. OT ADL-Bathing Comments OT Bathing Comments Sponge bathing more appropriate at this time due to decreased balance and activity tolerance. M5 OT- IP IADL's Start: 01/31/22 13:26 Freq: Status: Active Protocol: Document 01/31/22 10:15 [facility] (Rec: 01/31/22 13:45 [facility] [id number]) OT-Instrumental Activities of Daily Living Home Safety Awareness Home Safety Comments Pt is very groggy, slow to process and follow commands at this time and would need 24/7 assist if going home. Money Management Money Management Caregiver Provides Assistance Money Management Comments Pt states his son just started to pay the bills for him. Meal Preparation Meal Preparation Caregiver Provides Assist Cue Worker Cue Worker Caregiver Provides Assist M6 OT- IP Functional Cognition Start: 01/31/22 13:26 Freq: Status: Active Protocol: Document 01/31/22 10:15 [facility] (Rec: 01/31/22 13:45 [facility] [id number]) Cognitive Factors Limiting Selfcare Function Cognitive Ability Level of Alertness Confusional State Patient Orientation Name,Birthday,Situation Attention Span Ability Unable to Focus,Unable to Sustain Attention Ability to Follow Commands Able to Follow One Step Commands with Increased Time, Able to Follow One Step Commands with Repetition Memory Description Short Term Impaired,Rehabilitation Teacher Impaired Safety Awareness Decreased Recall of Precautions,Decreased Ability to Apply Precautions, Underestimates Need for Assistance Problem Solving Ability Unable to Identify Errors, Needs Assist to Identify Solutions Cognitive Comments Cognitive Assessment Comments Pt feel that he is still confused from having had anesthesia. Pt needing simple concrete cues to follow. Pt also needing encouragement as getting frustrated at times. Pt unable to recall his back precautions. OT- Vision and Hearing OT- Vision Assessment Visual Acuity Glasses For Reading M7 OT- IP Mobility and Balance Start: 01/31/22 13:26 Freq: Status: Active Protocol: Document 01/31/22 10:15 [facility] (Rec: 01/31/22 13:45 [facility] [id number]) OT- Bed Mobility Assessment Rolling Type of Rolling Roll to Right Level of Assistance Maximum Assistance,1 Person Assistance,2 Person Assistance Supine to Sit Supine to Sit Assist Maximum Assistance,2 Person Assistance OT-Transfer Assessment Sit to and From Stand Sit to and from Stand Maximum Assistance,2 Person Assistance Transfers Transfer Ability Maximum Assistance,2 Person Assistance Technique Transfer Destination Bed,Chair Devices Transfer Assistive Devices Gait Belt,Front Wheeled Walker Comments Mobility Comments MAX X 1-2 for bed mobility needs and hand over hand assist as pt slow to process and confused at this time. MAX AX 2 to stand to FWW and assist for balance, FWW guidance and to help ease down to the recliner. BP went down form 130/91 hr 128 sitting and after transfer 88/61 hr 135. Nursing present and aware and able to give pt pain medications and O2 placed on 2L. Pt on RA from 88-92%. OT- Balance Assessment Sitting Balance and Reactions Static Sitting Balance Ability Fair Dynamic Sitting Balance Ability Poor Standing Balance and Reactions Static Standing Balance Ability Poor Dynamic Standing Balance Ability Poor M8 OT- IP Objective Assessments Start: 01/31/22 13:26 Freq: Status: Active Protocol: Document 01/31/22 10:15 [facility] (Rec: 01/31/22 13:45 [facility] [id number]) OT- Coordination Assessment Comments Coordination Comments Pt has right hand tremors. M9 OT- IP Assessment and Plan Start: 01/31/22 13:26 Freq: Status: Active Protocol: Document 01/31/22 10:15 [facility] (Rec: 01/31/22 13:45 [facility] [id number]) OT Summary Assessment and Plan Potential Rehabilitation Potential Good Analytic Complexity at Evaluation Moderate Summary OT Impairments Pain,Strength,Balance, Functional Cognition, Functional Mobility,Grooming, Dressing,Toileting,Bathing, Toilet Transfers,Shower Transfers,Activity Tolerance Progress Towards Goals Slow Progress due to Medical Issues,Slow Progress due to Activity Tolerance,Slow Progress due to Cognition Assessment Summary Pt MOD complexity and main barriers are steps, needing concrete and simple cues to follow, slow to process since having surgery per pt and now needing extensive two person assist for mobility needs. In addition pt will need 2 person assist for some of his ADL needs as well. At this time pt would greatly benefit from skilled rehab prior to going home. Goals Self-Feeding Goal Independent Grooming Goal Independent Dressing Goal Minimal Assistance Toileting Goal Standby Assistance Bathing Goal Minimal Assistance Toilet Transfer Goal Standby Assistance Shower Transfer Goal Minimal Assistance Days to Meet Goals 25 Frequency of Treatment Frequency Of Treatment Once a Day Treatment Plan OT Treatment Plan ADL Training,Functional Cognition Training,Functional Mobility,Patient/Family Education,Discharge Planning Other Treatment Recommendations and Next Transfer to [facility] with MODA X 2 Treatment Focus with FWW. Discharge Recommendations OT Discharge Recommendations SNF Rehab Transportation Needs at Discharge Wheelchair/Cabulance
--- NOTE | 2022-01-31 11:31 | CM.DANOTE ---
Addendum entered by Shanae Vásquez R.N. 01/31/22 12:59: MATT Cont: Sue verbalized that they could accept the patient Friday 02/02. DCP to verbalize this to pt and team. Shanae Vásquez RN/MATT Original Note: DCP Assessment: Payor confirmed: Medicare and Medicaid PCP confirmed: Fadi Oconnor MD Pt presented to the hospital for scheduled TLIF surgery with Dr. Headley. No complications during procedure. Pt admitted to the AC unit for further management and evaluation of surgical procedure. Prior to meeting with pt, DCP spoke with OT and it was recommended that pt is needing SNF placement. DCP met with pt to discuss needs. Pt sitting up in chair. DCP introduced herself and role. Pt states he lives here in [place] with his and kids. Pt is normally independent at baseline but having some confusion today. Pt states that he used to be able to walk independently but he has to use DME's to get around. Pt states that his goal is to be able to walk again. DCP spoke about SNF options and provided him with medicare choice list and showed Ipad. Pt states that he wants only [place] locations. DCP explained that there is only one. Pt states that he will not go to any other facility unless it is in [place] due to his family financial strains. DCP explained that if [facility] is unable to accept that we would need to discuss other routes for discharge and pt verbalized understanding. Pt to come to hospital today after work. DCP updated whiteboard and left contact info for her if she would like to discuss further. Pt thankful for discussion. Following discussion with pt, MATT spoke with Sue @ and provided her the details for referral. Sue to look into case and get back with MATT. P: Anticipate discharge to SNF on Friday when pt meets his three night inpatient stay. Shanae Vásquez RN/MATT Discharge Planning/Care Management CM Discharge Assessment Start: 01/31/22 11:28 Freq: Status: Active Protocol: Document 01/31/22 11:28 [facility]OM[facility] (Rec: 01/31/22 11:29 [facility] [id number]) Discharge Planning Assessment Assigned Hook And Eye Machine Operator Shanae Vásquez RN/MATT Advance Directives? No History Provided By Patient Prior Living Arrangements House Household Members spouse,family Type of transporation used prior to Relies on Others admit Independent with ADL's Yes Is patient alert and oriented? Yes Needs Assistance With Home Chores / Shopping DME Already Rented / Owned FWW / Walker,Cane,Crutches Discharge Plan Senior Living Facility Transportation Arrangement Facility transport. Referrals Initiated Senior Living Whiteboard Updated in Patient Room with Yes name and ext. # of Hook And Eye Machine Operator Comment Instructed to call Review Status In Process Please Provide Date Initial DC 01/31/22 Assessment Was Performed Next Review Type Continued Stay Review Pre-Anesthesia Assessment Start: 01/15/22 08:48 Freq: Status: Active Protocol: Document 01/15/22 08:48 [facility] (Rec: 01/15/22 09:44 [facility] [id number]) Pre-Anesthesia Assessment Patient Information Reviewed Via Phone Assessment Assessment Completed With Patient Diagnostic Results BMP/CMP,CBC,EKG Comment Labs/ECG @ 12/13/21 COVID screen @ 01/28/22 Primary Care Provider Fadi Oconnor Seen Specialist in Last 12 Months Yes Specialist Seen ENT,Orthopedist,Other Comment Pain Management Primary Language Gambian Crimper Assembler Required No Height 187.96 cm Weight 95.254 kg Body Mass Index (BMI) 26.9 Hearing Ability Hearing Impaired Visual Assist Magnifying Glass Dentition Type Teeth, Natural Present,Teeth, Missing Barriers to Learning Auditory,Memory Hx Anesthesia Reactions No Hx Family Anesthesia Reaction No Hx Malignant Hyperthermia No Hx Blood Transfusions No Anesthesia Review Requested No alcohol intake former Smoking Status Never smoker Substance Use Type does not use Musculoskeletal Symptoms Abnormal Gait,Back Pain, Difficulty Walking,Muscle Weakness,Radiating Pain into Limb History of Falling (Recent or History of Yes ) Patient is completely paralyzed or No completely immobile Prosthesis or Orthotic Device Cane,Front Wheel Walker Mental Status Oriented to own ability Is patient on oxygen? No Does patient have CAMPOS/SOB No Hx Sleep Apnea No Currently Taking a Beta Wayne Yes: Metoprolol Hx Chest Pain No Hx SOB No Hx Syncope or Dizziness No Anti-Coagulant Therapy No Has a Homicide Squad Commanding Officer No Homicide Squad Commanding Officer name Dr. Green - prior records not available from [facility] Cardiac Testing No Hx Pacemaker/ICD No Pacemaker Rep Required? No Comment Pt states last saw cardiology 2004, told enlarged heart, not aware of hx Additional comment heart aneurysm or CHF Diet Type At Home Regular Dysphagia No Gastrointestinal Symptoms Constipation,Diarrhea,Reflux Chronic UTI No Bladder Pattern Frequency Urinary Catheter Present No Hx Urinary Self Catheterization No Diabetes No HgbA1C 5.6 Date 12/13/21 Hx Drug Resistant Organism No Presence of External or Internal Medical No Devices Have you had any close contact with No someone diagnosed with COVID-19? Received a COVID vaccine? Yes Received all doses? No Marital Status Lives With spouse,family Current Living Arrangements House Support System Child/Children,Spouse Does the Patient Have Assistance After Yes Surgery Patient Discharge Plan Description Return Home Comment Pt not advised length of stay per surgeon Feels Safe in Current Environment Yes Been Physically Hurt or Threatened By a No Person in Current Environment Do you have thoughts of harming yourself None or others? Are you currently considering suicide? No Do you have a plan to hurt yourself or No Plan others? Do You Have Any Spiritual Beliefs That No May Affect Your HC Choices? Do You Have Any Cultural Practices That No May Affect Your HC Choices? Comment Sabianism Who Can We Speak to About Patient's Care Family, friends Identifying Code for Release of Patient Declines to issue Information Health Care Proxy/Next of Kin Sharon () Health Care Proxy Emergency Contact Name Sharon () Emergency Contact Advance Directives? No Power of Pershing Missile Crewmember No PAC Instructions Durable medical equipment, Medications to take/avoid, Nasal antibiotic,No ETOH/ petroleum product on skin DOS, NPO,Pre-surgical wash,Sensory aids,Sturdy shoes/comfortable clothes,Do not bring valuables and remove jewelry
--- NOTE | 2022-01-31 14:15 | PT.IPTN ---
Current Diagnoses Unspecified thoracic, thoracolumbar and lumbosacral intervertebral disc disorder (01/30/22) Surgery Performed Operation Date: 01/30/22 09:15 Actual Procedures p L4-5, L5-S1 TLIF w. posterior instrumentation-Robot - Debby Headley MD Physical Therapy Treatment Note M2 PT-IP Current Condition Start: 01/31/22 12:45 Freq: NEEDED Status: Active Protocol: Document 01/31/22 10:10 AB (Rec: 01/31/22 13:10 AB [id number]) Physical Therapy Current Condition Current Condition Evaluation Date 01/31/22 Treatment Diagnosis s/p L4-5, L5S1 TLIF; difficulty in walking Onset Date 01/30/22 M3 PT-IP Subjective Start: 01/31/22 12:45 Freq: NEEDED Status: Active Protocol: Document 01/31/22 14:15 AB (Rec: 01/31/22 15:12 AB [id number]) Subjective Physical Therapy Visit Type Type Treatment Note Visit Start Time 14:15 Visit Stop Time 14:55 Total Visit Minutes 40 Number of SHEET METAL APPRENTICE Visits 0 Physical Therapy Visit Comments Patient Comments agreeable to do PT Therapy Pain Assessment Pain When Pain Assessed At Rest Pain Present Pain Present Pain Reported Location lower back Scale Used pain scale not stated but increases with mobility M4 PT-IP Mobility and Gait Start: 01/31/22 12:45 Freq: NEEDED Status: Active Protocol: Document 01/31/22 14:15 AB (Rec: 01/31/22 15:12 AB [id number]) PT-Bed Mobility Assessment Rolling Type of Rolling Log Rolling Level of Assist Maximal Assistance,1 Person Assistance,2 Person Assistance Supine to Sit Supine to Sit Maximum Assistance,1 Person Assistance,2 Person Assistance ,Head of Bed Elevated,Bedrails Sit to Supine Sit to Supine Maximum Assistance,2 Person Assistance,Head of Bed Elevated,Bedrails PT-Transfer Assessment Sit to and From Stand Sit to and from Stand Maximum Assistance,2 Person Assistance,Use of Upper Extremities Equipment Transfer Assistive Device Gait Belt,Front Wheeled Walker Orthotic/Prosthetic Devices or Brace: No Comments Mobility Comments BP in supine: 121/81. MN: 109 ; O2 sat with O2 on 92% completed log roll supine to sit max A x 1-2 and max cues with HOB slightly elevated and pt used bed rail to assist. pt requiring one step max cues with all tasks and continues to have difficulty with following instructions. able to sit on EOB CGA. BP in sittin/75 MN: 123; O2 sat 97% . Pt with seated rest break and requested to use the urinal. scooted to EOB CGA for urinal use. BP checked after ~ 5 min. BP: 111/73 MN: 127. completed sit to stand max A x 2 and max cues and instructed to do side stepping towards HOB max A x 2 and max cues using FWW. completed sit to supine max A x 2 and max cues. positioned in bed with call light and table placed within reach. BP checked again: 134/80, O2 sat 94% and MN 106. Informed NAC regarding vital signs. Activity limited due to decrease BP and high MN Gait Assessment Comments Gait Comments steps for positioning towards HOB using FWW max A x 2 and max cues M5 PT-IP Objective Assessments Start: 01/31/22 12:45 Freq: NEEDED Status: Active Protocol: Document 01/31/22 10:10 [facility] (Rec: 01/31/22 13:10 [facility] Orientation Orientation/Cognition Level of Alertness Confusional State Orientation Name,Birthday Safety Awareness Decreased Safety Awareness Memory Description Short Term Impaired,Panel Installer Impaired Gross Range of Motion Lower Extremity ROM Assessment Within Functional Limits Strength Lower Extremity Strength Hip 4-/5 Knee 4-/5 Sensation Assessment Sensation Gross Sensation WNL Muscle Tone Muscle Tone WNL Yes M6 PT-IP Treatment Start: 01/31/22 12:45 Freq: NEEDED Status: Active Protocol: Document 01/31/22 14:15 AB (Rec: 01/31/22 15:12 AB [id number]) Physical Therapy Treatment Education Education Provided Precautions,Safety M7 PT-IP Assessment and Plan Start: 01/31/22 12:45 Freq: NEEDED Status: Active Protocol: Document 01/31/22 14:15 AB (Rec: 01/31/22 15:12 AB [id number]) PT Summary Assessment and Plan Potential Rehabilitation Potential Fair Summary Impairments Pain,ROM,Strength,Balance, Coordination,Sensation,Tone, Cognition,Bed Mobility, Transfers,Gait,Activity Tolerance Progress Towards Goals Slow Progress due to Pain,Slow Progress due to Medical Issues,Slow Progress due to Activity Tolerance Assessment Summary pt continues to require max A x 2 with sit to stand using FWW and activity limited due to decrease BP with upright mobility and increase MN. pt continues to have difficulty following directions and needs max cues with all tasks. pt will require SNF rehab to improve strength and function. Goals Bed Mobility Goal Standby Assistance Transfer Goal Standby Assistance,Front Wheeled Walker Gait Goal Standby Assistance,Front Wheel Walker Gait Distance 150 Other Goals up/down 3 platform steps using FWW CGA Days to Meet Goals 10 Frequency of Treatment Frequency Of Treatment Twice a Day Treatment Plan Physical Therapy Treatment Plan Bed Mobility Training,Transfer Training,Gait Training, Therapeutic Exercise,Balance Retraining,Post Op Education, Discharge Planning,Hot or Cold Pack,Neuromuscular Re-ed, Coordination Retraining,Manual Therapy Precautions Lumbar Precautions Log Roll,No Twisting,Limit Bending,Lifting Restriction of 10 lbs,Gait Belt above Incisional Area Recommendations To Nursing Amount of Assist Needed 2 Person Assist Discharge Recommendations PT Discharge Recommendations SNF Rehab Equipment Needed for Home Before FWW if pt goes home Discharge Transportation Needs at Discharge Wheelchair/Cabulance
--- NOTE | 2022-01-31 14:15 | OT.IP.TRT ---
Current Diagnoses Unspecified thoracic, thoracolumbar and lumbosacral intervertebral disc disorder (01/30/22) Surgery Performed Operation Date: 01/30/22 09:15 Actual Procedures p L4-5, L5-S1 TLIF w. posterior instrumentation-Robot - Debby Headley MD Occupational Therapy Treatment Note M2 OT-IP Current Condition Start: 01/31/22 13:26 Freq: Status: Active Protocol: Document 01/31/22 10:15 [facility] (Rec: 01/31/22 13:45 [facility] [id number]) Occupational Therapy Current Condition Current Condition Evaluation Date 01/31/22 Treatment Diagnosis S/p L4-5, L5-S1 TLIF Diagnosis Onset Date 01/30/22 Post Operative Precautions Lumbar Precautions Log Roll,No Twisting,Limit Bending,Lifting Restriction of 10 lbs,Gait Belt above Incisional Area M3 OT- IP Subjective and Pain Start: 01/31/22 13:26 Freq: Status: Active Protocol: Document 01/31/22 15:38 [facility] (Rec: 01/31/22 15:46 [facility] [id number]) OT- Subjective Occupational Therapy Visit Type Type Treatment Note Visit Start Time 14:15 Visit Stop Time 14:46 Total Visit Minutes 31 Occupational Therapy Visit Comments Patient Comments Saw pt a second time due reassess mobility needs. Patient/Caregiver Goals TO get better. OT Pain Assessment Pain When Pain Assessed At Rest Pain Present Pain Present Denied Pain M7 OT- IP Mobility and Balance Start: 01/31/22 13:26 Freq: Status: Active Protocol: Document 01/31/22 15:38 [facility] (Rec: 01/31/22 15:46 [facility] [id number]) OT- Bed Mobility Assessment Rolling Type of Rolling Roll to Right Level of Assistance Maximum Assistance,1 Person Assistance,2 Person Assistance Supine to Sit Supine to Sit Assist Maximum Assistance,1 Person Assistance,2 Person Assistance Sit to Supine Sit to Supine Assist Maximum Assistance,2 Person Assistance OT-Transfer Assessment Sit to and From Stand Sit to and from Stand Maximum Assistance,2 Person Assistance Comments Mobility Comments MAXAx2 to stand to FWW and take a few side steps up to the bed , assist for for balance, vc to stiffen his legs as his right knee tends to buckle. BP supine 121/81 hr 109 O2 on 2L 92% BP sitting 102/75 hr 123 O2 on 2L 97% BP sitting 113/75 HR 127 Nursing notified of lower BP and high HR. OT- Balance Assessment Sitting Balance and Reactions Static Sitting Balance Ability Fair Dynamic Sitting Balance Ability Poor Standing Balance and Reactions Static Standing Balance Ability Poor Dynamic Standing Balance Ability Poor M8 OT- IP Objective Assessments Start: 01/31/22 13:26 Freq: Status: Active Protocol: Document 01/31/22 10:15 [facility] (Rec: 01/31/22 13:45 [facility] [id number]) OT- Coordination Assessment Comments Coordination Comments Pt has right hand tremors. M9 OT- IP Assessment and Plan Start: 01/31/22 13:26 Freq: Status: Active Protocol: Document 01/31/22 15:38 [facility] (Rec: 01/31/22 15:46 [facility] [id number]) OT Summary Assessment and Plan Potential Rehabilitation Potential Good Analytic Complexity at Evaluation Moderate Summary OT Impairments Pain,Strength,Balance, Functional Cognition, Functional Mobility,Grooming, Dressing,Toileting,Bathing, Toilet Transfers,Shower Transfers,Activity Tolerance Progress Towards Goals Slow Progress due to Medical Issues,Slow Progress due to Activity Tolerance,Slow Progress due to Cognition Assessment Summary Pt still needing simple one step commands to follow for bed mobility and coming to stand. Pt able to use the urinal while seated and assist for set-up. Pt will still benefit from skilled rehab prior to going home. Pt does admit that lately he has been slower to process information and that his balance and body awareness has not been good. Goals Self-Feeding Goal Independent Grooming Goal Independent Dressing Goal Minimal Assistance Toileting Goal Standby Assistance Bathing Goal Minimal Assistance Toilet Transfer Goal Standby Assistance Shower Transfer Goal Minimal Assistance Days to Meet Goals 25 Frequency of Treatment Frequency Of Treatment Twice a Day Treatment Plan OT Treatment Plan ADL Training,Functional Cognition Training,Functional Mobility,Patient/Family Education,Discharge Planning Other Treatment Recommendations and Next Transfer to [facility] with MODA X 2 Treatment Focus with FWW. Discharge Recommendations OT Discharge Recommendations SNF Rehab Transportation Needs at Discharge Wheelchair/Cabulance
[2022-01-31] MEDS: ACETAMINOPHEN 325 MG TABLET 650 MG PO (17:21)
[2022-01-31] MEDS: SENNOSIDES 8.6 MG TABLET 17.2 MG PO (20:19)
[2022-01-31] MEDS: TRAMADOL 50 MG TABLET PO (20:20)
[2022-02-01] VITALS (7 sets, daily range): BP systolic 104–133; BP diastolic 61–89; PULSE 72–101; RESP 18; TEMP 36.1–37.6; O2SAT 94–95
[2022-02-01] MEDS: ACETAMINOPHEN 325 MG TABLET 650 MG PO ×4 (00:28→18:21)
[2022-02-01] MEDS: OXYCODONE IR 5 MG TABLET 10 MG PO ×5 (00:28→21:42)
--- NOTE | 2022-02-01 03:44 | PC.NURSE ---
Pt urinating every 5-10 minutes, approx 50-100 mL each time. Very little warning time. Pt physically unable to maneuver penis into urinal on own. Linens changed d/t patient not being able to hold urine long enough for staff to arrive. Applied condom cath to patient to allow for sleep through the night.
[2022-02-01] MEDS: CITALOPRAM 10 MG TABLET 20 MG PO (09:22)
[2022-02-01] MEDS: hydroCHLOROthiazide 25 MG TABLET PO (09:22)
[2022-02-01] MEDS: CELECOXIB 200 MG CAPSULE PO (09:22)
[2022-02-01] MEDS: METOPROLOL ER 25 MG TABLET PO (09:23)
[2022-02-01] MEDS: DOCUSATE 100 MG CAPSULE PO ×2 (09:23→21:41)
[2022-02-01] MEDS: GABAPENTIN 600 MG TABLET PO ×3 (09:23→21:41)
[2022-02-01] MEDS: lisinopriL 20 MG TABLET PO (09:23)
--- NOTE | 2022-02-01 10:43 | OT.IP.TRT ---
Current Diagnoses Unspecified thoracic, thoracolumbar and lumbosacral intervertebral disc disorder (01/30/22) Surgery Performed Operation Date: 01/30/22 09:15 Actual Procedures p L4-5, L5-S1 TLIF w. posterior instrumentation-Robot - Debby Headley MD Occupational Therapy Treatment Note M2 OT-IP Current Condition Start: 01/31/22 13:26 Freq: Status: Active Protocol: Document 01/31/22 10:15 [facility] (Rec: 01/31/22 13:45 [facility] [id number]) Occupational Therapy Current Condition Current Condition Evaluation Date 01/31/22 Treatment Diagnosis S/p L4-5, L5-S1 TLIF Diagnosis Onset Date 01/30/22 Post Operative Precautions Lumbar Precautions Log Roll,No Twisting,Limit Bending,Lifting Restriction of 10 lbs,Gait Belt above Incisional Area M3 OT- IP Subjective and Pain Start: 01/31/22 13:26 Freq: Status: Active Protocol: Document 02/01/22 11:43 [facility] (Rec: 02/01/22 13:07 [facility] [id number]) OT- Subjective Occupational Therapy Visit Type Type Treatment Note Visit Start Time 11:43 Visit Stop Time 12:29 Total Visit Minutes 46 Occupational Therapy Visit Comments Patient Comments Pt wanting to use the BSC x2. Pt a bit anxious if having to go home. Pt just having soup for lunch and encourage pt t try to eat more as needing protein/calories to help heal from his surgery. Pt agreed to have an Ensure as able to clear by his nurse to have. Patient/Caregiver Goals To go to skilled rehab. OT Pain Assessment Pain When Pain Assessed At Rest Pain Present Pain Present Denied Pain M4 OT- IP ADL's Start: 01/31/22 13:26 Freq: Status: Active Protocol: Document 02/01/22 11:43 [facility] (Rec: 02/01/22 13:07 [facility] [id number]) OT ADL-Grooming Comments OT Grooming Comments Not performed. OT ADL-Oral Care Comments Oral Care Comments NOt performed. OT ADL-Dressing General Eval Lower Body Dressing Ability Minimal Assistance Areas Needing Assistance Socks Comments OT Dressing Comments Pt able to practice sock aid and client service executive to sock management and still needing repetitive cues to follow. Pt insists that he goes barefooted at home and only wears socks when her goes to appointments. OT ADL-Toileting General Evaluation Toileting Ability Standby Assistance,Minimal Assistance Devices Toileting Assistive Devices Commode Comments OT Toileting Comments Pt able to simulate leaning to to side to see if he was able to wipe appropriately while following his back precautions and having difficulty. Pt able to stand with LAWRENCE and able to reach back to wipe. Pt still has the tolbert in place. OT ADL-Bathing Comments OT Bathing Comments Not performed. M5 OT- IP IADL's Start: 01/31/22 13:26 Freq: Status: Active Protocol: Document 01/31/22 10:15 [facility] (Rec: 01/31/22 13:45 [facility] [id number]) OT-Instrumental Activities of Daily Living Home Safety Awareness Home Safety Comments Pt is very groggy, slow to process and follow commands at this time and would need 24/7 assist if going home. Money Management Money Management Caregiver Provides Assistance Money Management Comments Pt states his son just started to pay the bills for him. Meal Preparation Meal Preparation Caregiver Provides Assist Whizzer Whizzer Caregiver Provides Assist M6 OT- IP Functional Cognition Start: 01/31/22 13:26 Freq: Status: Active Protocol: Document 02/01/22 11:43 [facility] (Rec: 02/01/22 13:07 [facility] [id number]) Cognitive Factors Limiting Selfcare Function Cognitive Ability Level of Alertness Alert,Confusional State Attention Span Ability Capable of Focused Attention, Unable to Sustain Attention Ability to Follow Commands Able to Follow One Step Commands with Increased Time, Able to Follow One Step Commands with Repetition Memory Description Short Term Impaired Safety Awareness Decreased Recall of Precautions,Decreased Ability to Apply Precautions, Underestimates Need for Assistance Problem Solving Ability Unable to Identify Errors, Needs Assist to Identify Solutions Cognitive Comments Cognitive Assessment Comments Pt able to follow commands a little better today. Pt highly benefits from simple concrete commands. In addition helpful to break down the step on transition into steps for the pt to follow. For example when coming to stand from the recliner. 1. Have the FWW in front of him. 2. Scoot forwards to the edge of the recliner by use of his hands on the arm rests to assist. 3. Place right hand on the handle of FWW and push up with his left hand on the armrest of the recliner. 4. COme to stand and be sure to tighten his quads. Pt at times has loss of focus and needing to be redirected to focus on the task at hand. M7 OT- IP Mobility and Balance Start: 01/31/22 13:26 Freq: Status: Active Protocol: Document 02/01/22 11:43 [facility] (Rec: 02/01/22 13:07 [facility] [id number]) OT-Transfer Assessment Sit to and From Stand Sit to and from Stand Moderate Assistance,Maximum Assistance,1 Person Assistance Transfers Transfer Ability Minimal Assistance,Moderate Assistance Technique Transfer Destination Bedside Commode,Chair Devices Transfer Assistive Devices Gait Belt,Front Wheeled Walker Comments Mobility Comments MOD/MAXA x1 to stand to FWW and transfer with MIN/MODA with FWW, reminders to push the FWW. OT- Balance Assessment Sitting Balance and Reactions Static Sitting Balance Ability Good Dynamic Sitting Balance Ability Good Standing Balance and Reactions Static Standing Balance Ability Fair Dynamic Standing Balance Ability Fair M8 OT- IP Objective Assessments Start: 01/31/22 13:26 Freq: Status: Active Protocol: Document 01/31/22 10:15 [facility] (Rec: 01/31/22 13:45 [facility] [id number]) OT- Coordination Assessment Comments Coordination Comments Pt has right hand tremors. M9 OT- IP Assessment and Plan Start: 01/31/22 13:26 Freq: Status: Active Protocol: Document 02/01/22 11:43 [facility] (Rec: 02/01/22 13:07 [facility] [id number]) OT Summary Assessment and Plan Potential Rehabilitation Potential Good Analytic Complexity at Evaluation Moderate Summary OT Impairments Strength,Balance,Functional Cognition,Functional Mobility, Grooming,Dressing,Toileting, Bathing,Toilet Transfers, Shower Transfers,Activity Tolerance Progress Towards Goals Progressing Toward Goals,Slow Progress due to Cognition Assessment Summary Pt a little clearer today however still needing repetition education of his back precautions to follow for ADl and mobility needs. Pt is very cooperative and motivated to get better. Goals Self-Feeding Goal Independent Grooming Goal Independent Dressing Goal Independent Toileting Goal Independent Bathing Goal Standby Assistance Toilet Transfer Goal Independent Shower Transfer Goal Independent Days to Meet Goals 15 Frequency of Treatment Frequency Of Treatment Once a Day Treatment Plan OT Treatment Plan ADL Training,Functional Cognition Training,Functional Mobility,Patient/Family Education,Discharge Planning Discharge Recommendations OT Discharge Recommendations SNF Rehab Transportation Needs at Discharge Wheelchair/Cabulance
--- NOTE | 2022-02-01 11:22 | PT.IPTN ---
Current Diagnoses Unspecified thoracic, thoracolumbar and lumbosacral intervertebral disc disorder (01/30/22) Surgery Performed Operation Date: 01/30/22 09:15 Actual Procedures p L4-5, L5-S1 TLIF w. posterior instrumentation-Robot - Debby Headley MD Physical Therapy Treatment Note M2 PT-IP Current Condition Start: 01/31/22 12:45 Freq: NEEDED Status: Active Protocol: Document 02/01/22 10:45 [facility] (Rec: 02/01/22 12:22 [facility] [id number]) Physical Therapy Current Condition Current Condition Evaluation Date 01/31/22 Treatment Diagnosis s/p L4-5, L5S1 TLIF; difficulty in walking Onset Date 01/30/22 M3 PT-IP Subjective Start: 01/31/22 12:45 Freq: NEEDED Status: Active Protocol: Document 02/01/22 10:45 [facility] (Rec: 02/01/22 12:22 [facility] [id number]) Subjective Physical Therapy Visit Type Type Treatment Note Visit Start Time 10:44 Visit Stop Time 11:22 Total Visit Minutes 38 Notes MG Rankin provided 2nd person physical assist and instruction for mobility to support [employer] Crista while being directly supervised and directed as needed throughout tx. stable vitals: supine BP 120/ 90 HR 92 SaO2 95% 2L, seated BP 142/81 HR 124 decreased 118bpm within in seconds recheck and SaO2 95% on 1 L, seated inc chair post mobility BP 134/83 and SaO2 92% on RA in chair. Number of [employer] Visits 1 Physical Therapy Visit Comments Patient Comments Pt agreeable to do PT, states isn't thinking and remembering as well as did before surgery but did have deficits in memory pre surgery. Pt reports doing better with medication received recently. Patient Goals Pt's goal to return home with and sons to assist him, is agreeable to going SNF though to get stronger with physical assist still needed. Therapy Pain Assessment Pain When Pain Assessed At Rest Pain Present Pain Present Pain Reported Location B medial thighs/Proximal Adductors Scale Used alot when moved, no scale rating given when asked Pain Behaviors Facial Grimacing,Holding Area Pain Management Techniques Distraction,Modification of Treatment,Re-positioning, Timing of Activity with Medications lower back Intensity 8 Scale Used Numeric (0 - 10) Description With Movement Pain Behaviors Facial Grimacing,Guarding Pain Management Techniques Distraction,Modification of Treatment,Re-positioning, Timing of Activity with Medications M4 PT-IP Mobility and Gait Start: 01/31/22 12:45 Freq: NEEDED Status: Active Protocol: Document 02/01/22 10:45 [facility] (Rec: 02/01/22 12:22 [facility] [id number]) PT-Bed Mobility Assessment Rolling Type of Rolling Log Rolling,Roll to Right Level of Assist Moderate Assistance,1 Person Assistance Supine to Sit Supine to Sit Maximum Assistance,1 Person Assistance,Bedrails PT-Transfer Assessment Sit to and From Stand Sit to and from Stand Moderate Assistance,Maximum Assistance,1 Person Assistance ,Use of Upper Extremities Equipment Transfer Assistive Device Gait Belt,Front Wheeled Walker Orthotic/Prosthetic Devices or Brace: No Transfers Transfer Destination Chair Transfer Technique pt ambulate with FWW Transfer Ability Level of Assist Minimal Assistance,Moderate Assistance,1 Person Assistance ,Use of Upper Extremities Comments Mobility Comments Pt reports received pain medication recently, [employer] verified but nursing and computer doesn't support pt comments. Pt recalls 3/3 back precautions but states nervous if can do them correctly. Pt reports having pain medial thighs didn't have before surgery, able complete AP/ heels slides pre mobility, HOB flat Max cues/education for log roll technique legs bent self and coordinate w/reaching across body bed rail to complete Mod A x1 trunk support and contact/Min A LEs to EOB into R SL, R SL>sit Max A x1 for trunk righting to sit. scoot to EOB CGA, sit right EOB UE support as needed while self donned back brace for LB support per pt request. Sit>stand Max A x1, CGA2nd person for safety assessment, stand marching in place CG/ Min A x1, noted bent knees improve with cues quad facilitation, stand step pivot turn in front bed and forward chair 5 ft, was steady so progressed gait further across room 15 ft to repositioned chair L side bed, step to/ stagger step gait to chair Min /MOd A x1 w/ FWW, cues quad facilitation during gait, still slight flexed BLEs during midstance phase but no buckling. pivot front chair/ back step cues as needed for safety completion w/FWW. Cues for reaching back slow sit Sydnee in chair. Pt able scoot back fully self. supported LEs elevated in chair donned chair alarm. DIscussed with pt progress nicely but still needing support of 2 person at times for mobility, unsure if family can provide this assist all day, unable to complete stair mgt at this time due to decreased strength to allow get in home, 3 stairs. Will continue to assess progress. Recommending SNF at this time for strength and functional mobility. Gait Assessment Gait Gait Assistance Required: Minimum Assistance,Moderate Assistance,1 Person Assist Distance (Feet) 15 Able to Maintain Weight Bearing Status Yes During Gait Assistive Devices Assistive Device Gait Belt,Front Wheeled Walker Orthotic/Prosthetic Devices or Brace: Yes Gait Deviations General Gait Pattern Antalgic,Decreased Stride Length,Decreased Feet Clearance,Flexed Trunk Factors Limiting Gait Function Factors Limiting Gait Function Decreased Activity Tolerance, Decreased Strength,Difficulty Following Directions,Limited Range of Motion,Pain,Poor Balance,Poor Safety Awareness Comments Gait Comments cues for quad facilitation, body within FWW, noted heavily BUE WB on FWW, step to/ stagger step gait. Stair Climbing Assessment Comments Stair Climbing Comments Has 3 steps to enter home, pt uncertain clearly if PF or regular steps and rails. Unable due to decreased strength at this time to assess. PT-Balance Assessment Sitting Balance and Reactions Static Sitting Balance Ability Good Dynamic Sitting Balance Ability Fair Standing Balance and Reactions Static Standing Balance Ability Fair Dynamic Standing Balance Ability Fair Device Used FWW M5 PT-IP Objective Assessments Start: 01/31/22 12:45 Freq: NEEDED Status: Active Protocol: Document 01/31/22 10:10 [facility] (Rec: 01/31/22 13:10 [facility] [id number]) Orientation Orientation/Cognition Level of Alertness Confusional State Orientation Name,Birthday Safety Awareness Decreased Safety Awareness Memory Description Short Term Impaired,Project Management Consultant Impaired Gross Range of Motion Lower Extremity ROM Assessment Within Functional Limits Strength Lower Extremity Strength Hip 4-/5 Knee 4-/5 Sensation Assessment Sensation Gross Sensation WNL Muscle Tone Muscle Tone WNL Yes M6 PT-IP Treatment Start: 01/31/22 12:45 Freq: NEEDED Status: Active Protocol: Document 02/01/22 10:45 [facility] (Rec: 02/01/22 12:22 SP [id number]) Physical Therapy Treatment Exercises Exercises Ankle Pumps,Heel Slides Education Education Provided Precautions,Safety Other Treatments Other Treatment Performed recalled 3/3 precautions, max cues sequencing for proper demonstration. Instruction standing marching in FWW Min A / cues for quad facilitation prevent buckling safety/ strengthening. M7 PT-IP Assessment and Plan Start: 01/31/22 12:45 Freq: NEEDED Status: Active Protocol: Document 02/01/22 10:45 [facility] (Rec: 02/01/22 12:22 SP [id number]) PT Summary Assessment and Plan Potential Rehabilitation Potential Fair Status of Condition at Evaluation Evolving Summary Impairments Pain,ROM,Strength,Balance, Coordination,Sensation,Tone, Cognition,Bed Mobility, Transfers,Gait,Activity Tolerance Progress Towards Goals Progressing Toward Goals,Slow Progress due to Pain,Slow Progress due to Activity Tolerance Assessment Summary pt continues to require Max A for bed mobility, Mod/max A x 1-2 with sit to stand using FWW. pt verbose, needs redirecting, continues to have difficulty following directions, states not thinking/remembering clearly. Needs max cues with all tasks. pt will require SNF rehab to improve strength and function . Goals Bed Mobility Goal Standby Assistance Transfer Goal Standby Assistance,Front Wheeled Walker Gait Goal Standby Assistance,Front Wheel Walker Gait Distance 150 Other Goals up/down 3 platform steps using FWW CGA Days to Meet Goals 10 Frequency of Treatment Frequency Of Treatment Twice a Day Treatment Plan Physical Therapy Treatment Plan Bed Mobility Training,Transfer Training,Gait Training, Therapeutic Exercise,Balance Retraining,Post Op Education, Discharge Planning,Hot or Cold Pack,Neuromuscular Re-ed, Coordination Retraining,Manual Therapy Other Recommendations and Next Treatment bed mob, precautions with Focus mobility, transfers/ gait w/ FWW Precautions Lumbar Precautions Log Roll,No Twisting,Limit Bending,Lifting Restriction of 10 lbs,Gait Belt above Incisional Area Recommendations To Nursing Amount of Assist Needed 2 Person Assist Discharge Recommendations PT Discharge Recommendations SNF Rehab Equipment Needed for Home Before FWW if pt goes home Discharge Transportation Needs at Discharge Private Vehicle,Wheelchair/ Cabulance
--- NOTE | 2022-02-01 12:51 | P.PN_ITS ---
Subjective Subjective Date Patient Seen: 02/01/22 Time Patient Seen: 12:53 Interval history: Patient is complaining of [id number] low back pain. He is using his lumbar corset from home and notes that is helping. He denies any new numbness or tingling down his legs. Notes he has a history of frequent urination, his nurse notes he has been urinating approximately 50 100 mils every 5-10 minutes and is having difficulty making it with a handheld urinal. He is also somewhat confused today, which she attributes to the anesthesia. He had a low-grade temperature of 99.7?, but denies fevers, chills, night sweats. Exam Vital Signs (past 8 hours): - 02/01/22 09:18 02/01/22 10:08 02/01/22 11:39 Temperature 97.7 F 97.0 F L Pulse Rate 82 72 101 H Respiratory Rate 18 18 Blood Pressure 133/80 121/80 125/89 Pulse Oximetry 95 94 Oxygen Flow Rate 2 2 Oxygen Delivery Method Nasal Cannula Oxygen Flow Rate 2 Narrative Exam Narrative: Pleasant 66-year-old male, resting comfortably in bed, no acute distress. Lumbar incision with reinforcement is clean, dry, intact. No surrounding erythema, induration, or salvador pus. Bilateral lower extremity: Motor functions are grossly intact, sensation is grossly intact to light touch, calves are soft and nontender to palpation. His urine from his condom catheter is very dark colored, almost blood-tinged. 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 posterior instrumentation-Robot Debby Headley MD Postoperative day: 2 Postoperative status narrative: -stable status post L4-5, L5-S1 TLIF -cognitive changes, baseline versus acute postop delirium, resolving -increase urination, dark-colored urine Postoperative plan narrative: -mobilize with PT/OT. Weightbearing as tolerated with front wheel walker or cane. No bending, lifting, twisting x6 weeks -continue with multimodal pain management -encouraged incentive spirometer due to low-grade temperature. -ordered UA plus CMP due to his frequent urination and dark-colored urine -encouraged follow-up with his primary care in regards to possible cognitive changes and urinary frequency -disposition to SNF, likely tomorrow. May need to consider hospitalist consult, pending UA plus CMP
[2022-02-01 13:40] LABS: Bilirubin Urine UA NEGATIVE (NEGATIVE); Color Urine UA YELLOW; Glucose Urine UA NEGATIVE (Negative); Ketones Urine UA 1+ (NEGATIVE); Leukocyte Esterase Urine UA TRACE (NEGATIVE); Nitrite Urine UA NEGATIVE (Negative); Occult Blood Urine UA 2+ (Negative); Protein Urine UA 1+ (Negative); Urobilinogen Urine UA 0.2 E.U./dL (0.2)
[2022-02-01 13:48] LABS: Appearance Urine UA Slightly Cloudy
[2022-02-01 13:49] LABS: Amorphous Sediment Urine 1+; Bacteria Urine Few (2-10); Culture Indicated Urine Specimen Cultured; Mucus Urine 1+ (Negative); RBC Urine 1-5/HPF (0-5/HPF); Squamous Epithelial Cell Urine 0-1 /HPF (0-5/HPF); WBC Urine 1-5/HPF (0-5/HPF)
[2022-02-01 15:04] LABS: Hematocrit 42.2 % (41-53); Hemoglobin 13.9 g/dL (13.5-17.5); Mean Corpuscular Hemoglobin 28.6 PG (26-34); Mean Corpuscular Volume 86.6 fL (80-100); Platelet Count 212 X10^3/uL (150-400); Red Blood Cell Count 4.87 X10^6/uL (4.5-5.9); Red Cell Distribution Width 12.8 % (11.6-14.8); White Blood Cell Count 13.2 X10^3/uL (4.5-11.0)
[2022-02-01 15:17] LABS: Alanine Aminotransferase 18 IU/L (<50); Albumin 3.8 g/dL (3.5-5.0); Albumin Globulin Ratio 1.2 (1.0-2.8); Alkaline Phosphatase 58 U/L (38-126); Aspartate Aminotransferase 32 IU/L (17-59); BUN Creatinine Ratio 17.7 (6-22); Bilirubin Total 0.9 mg/dL (0.2-1.3); Blood Urea Nitrogen 17 mg/dL (9-20); Calcium 8.7 mg/dL (8.4-10.2); Carbon Dioxide 31 mmol/L (22-32); Chloride 96 mmol/L (98-107); Estimated Glomerular Filt Rate > 60 mL/min (>60); Globulin 3.1 g/dL (1.7-4.1); Glucose 142 mg/dL (80-110); HEMOLYSIS < 15 (0-50); Sodium 135 mmol/L (137-145); Total Protein 6.9 g/dL (6.3-8.2)
--- NOTE | 2022-02-01 16:17 | PT.IPTN ---
Current Diagnoses Unspecified thoracic, thoracolumbar and lumbosacral intervertebral disc disorder (01/30/22) Surgery Performed Operation Date: 01/30/22 09:15 Actual Procedures p L4-5, L5-S1 TLIF w. posterior instrumentation-Robot - Debby Headley MD Physical Therapy Treatment Note M2 PT-IP Current Condition Start: 01/31/22 12:45 Freq: NEEDED Status: Active Protocol: Document 02/01/22 15:39 SP (Rec: 02/01/22 17:28 SP [id number]) Physical Therapy Current Condition Current Condition Evaluation Date 01/31/22 Treatment Diagnosis s/p L4-5, L5S1 TLIF; difficulty in walking Onset Date 01/30/22 M3 PT-IP Subjective Start: 01/31/22 12:45 Freq: NEEDED Status: Active Protocol: Document 02/01/22 15:39 SP (Rec: 02/01/22 17:28 SP [id number]) Subjective Physical Therapy Visit Type Type Treatment Note Visit Start Time 15:39 Visit Stop Time 16:17 Total Visit Minutes 38 Notes Pt's 2 sons in room when arrived, came in shortly into tx. and 1 son stayed to observe pts updated mobility decrease but still needs support throughout tx. Number of THERAPIST PHYSICAL Visits 2 Physical Therapy Visit Comments Patient Comments Pt agreeable to working with therapy. Patient Goals return home with and kids to help him but agreeable to SNF to progress strength, works during days a unable to be home and can not provide physical assist. Therapy Pain Assessment Pain When Pain Assessed During Mobility Pain Present Pain Present Denied Pain M4 PT-IP Mobility and Gait Start: 01/31/22 12:45 Freq: NEEDED Status: Active Protocol: Document 02/01/22 15:39 SP (Rec: 02/01/22 17:28 SP [id number]) PT-Bed Mobility Assessment Rolling Type of Rolling Log Rolling,Bilateral Level of Assist Standby Assistance Supine to Sit Supine to Sit Standby Assistance,1 Person Assistance,Bedrails Sit to Supine Sit to Supine Contact Guard Assistance,1 Person Assistance,Bedrails Scooting Scooting to Edge of Bed Standby Assistance PT-Transfer Assessment Sit to and From Stand Sit to and from Stand Contact Guard Assistance, Minimal Assistance,1 Person Assistance,Use of Upper Extremities Equipment Transfer Assistive Device Gait Belt,Front Wheeled Walker Orthotic/Prosthetic Devices or Brace: Yes Transfers Transfer Destination Bed,Chair Transfer Technique pt ambulate with FWW Transfer Ability Level of Assist Contact Guard Assistance, Minimal Assistance,1 Person Assistance,Use of Upper Extremities Comments Mobility Comments THERAPIST PHYSICAL provided safety education with and sons, able to stay and observe tx with how pt is progressing with mobility. Pt recalled 2/3 precautions, missed no twisting, cues during tx to maintain this precautions during bed mob. able to verbalize sequencing scoot to EOchair and STS from chair CG- 5%A, Min cues for proper hand placement push off chair arms/ redirectioning off FWW pulling , gait across room and backto chair 30 ft CGA- 5%A, cues for quad facilitation and upright posturing, decreased UE WB on FWW, still demonstrates slight knee flexion during gait but family stated is pt normal but not as steady as can be. Cues to pt body middle of FWW tends to get to forward in FWW. Pt improved pivot/retro step back and center self wtih self cues and reach back to sit in chair 1 UE to slow descent but flopped /fall last 2 into chair, education provided safety use of 2 hands and agreed. Pt able STS, gait around room CGA w/ FWW to R side, needed reminders sequencing backing up to bed, and reaching to slow sit on bed CGA. Sit>R SL on RUE self LEs into bed and slight scoot retro, occasional cues for sequencing proper form/LR supine. supine>LR R cues for hand on bent knee to support no twisting better for after 2nd rep, self LEs to EOB, R SL>sit CGA, scoot to EOB SBA with more ease this tx . Pt STS CGA improved proper hand placement, gait around room to chair 15 ft w/FWW, improved receiprocal stepping more stable quad facilitation CGA. Pt returned to chair better control sitting. Pt continues to need safety processing cues for mobility, recall and maintaining precautions. Pt is not safe at this time to assess 5 stairs. He had call light and all needs in reach, chair alarm donned wtih self elevation of leg rests with hand over hand to find lever. Will continue to assess progress in mobility . Gait Assessment Gait Gait Assistance Required: Contact Guard Assist,Minimum Assistance,1 Person Assist Distance (Feet) 60 Able to Maintain Weight Bearing Status Yes During Gait Assistive Devices Assistive Device Gait Belt,Front Wheeled Walker Orthotic/Prosthetic Devices or Brace: Yes Gait Deviations General Gait Pattern Antalgic,Decreased Stride Length,Decreased Feet Clearance,Flexed Trunk Factors Limiting Gait Function Factors Limiting Gait Function Decreased Activity Tolerance, Decreased Strength,Difficulty Following Directions,Limited Range of Motion,Poor Balance, Poor Safety Awareness Comments Gait Comments cues for quad facilitation, body middle not front of FWW, decreased Moderate UE WB on FWW, small but step over step gait slight flexed knees closer to his normal per reports but still little unsteady. Stair Climbing Assessment Comments Stair Climbing Comments Decreased strength and unable to complete 5 (2+3) stairs with no HRs, son clarified reported has to enter home. PT-Balance Assessment Sitting Balance and Reactions Static Sitting Balance Ability Normal Dynamic Sitting Balance Ability Good Standing Balance and Reactions Static Standing Balance Ability Good Dynamic Standing Balance Ability Fair Device Used FWW M5 PT-IP Objective Assessments Start: 01/31/22 12:45 Freq: NEEDED Status: Active Protocol: Document 01/31/22 10:10 AB (Rec: 01/31/22 13:10 AB [id number]) Orientation Orientation/Cognition Level of Alertness Confusional State Orientation Name,Birthday Safety Awareness Decreased Safety Awareness Memory Description Short Term Impaired,Usp Impaired Gross Range of Motion Lower Extremity ROM Assessment Within Functional Limits Strength Lower Extremity Strength Hip 4-/5 Knee 4-/5 Sensation Assessment Sensation Gross Sensation WNL Muscle Tone Muscle Tone WNL Yes M6 PT-IP Treatment Start: 01/31/22 12:45 Freq: NEEDED Status: Active Protocol: Document 02/01/22 15:39 SP (Rec: 02/01/22 17:28 SP [id number]) Physical Therapy Treatment Education Education Provided Precautions,Safety Other Treatments Other Treatment Performed recalled BLT but only 2/3 precautions, missed no twisting. Education for UE contact bent knee supine to support spinal alignment during log roll technique. M7 PT-IP Assessment and Plan Start: 01/31/22 12:45 Freq: NEEDED Status: Active Protocol: Document 02/01/22 15:39 SP (Rec: 02/01/22 17:28 SP [id number]) PT Summary Assessment and Plan Potential Rehabilitation Potential Fair Status of Condition at Evaluation Evolving Summary Impairments Pain,ROM,Strength,Balance, Coordination,Sensation,Tone, Cognition,Bed Mobility, Transfers,Gait,Activity Tolerance Progress Towards Goals Progressing Toward Goals,Slow Progress due to Activity Tolerance,Slow Progress - Other Assessment Summary Pt has fair safety awareness, he need time to process sequencing transfer 1/3 times performed today. Decreases physical support this tx but requires SBA for bed mobility max cues for sequencing LR to maintain precuations no twisting, CG- Min A x1 for sit to stand and gait using FWW. pt verbose but improved self verbalizing mobility steps but states his thinking/ remembering clearly isnt back to his normal. pt will require SNF rehab to improve strength and function safely and complete stair mgt to enter home unable to do this tx. Goals Bed Mobility Goal Standby Assistance Transfer Goal Standby Assistance,Front Wheeled Walker Gait Goal Standby Assistance,Front Wheel Walker Gait Distance 150 Other Goals up/down 3 platform steps using FWW CGA Days to Meet Goals 10 Frequency of Treatment Frequency Of Treatment Twice a Day Treatment Plan Physical Therapy Treatment Plan Bed Mobility Training,Transfer Training,Gait Training, Therapeutic Exercise,Balance Retraining,Post Op Education, Discharge Planning,Hot or Cold Pack,Neuromuscular Re-ed, Coordination Retraining,Manual Therapy Other Recommendations and Next Treatment precautions, bed mob, safety Focus sequencing transfers properly with FWW, gait further distance. Precautions Lumbar Precautions Log Roll,No Twisting,Limit Bending,Lifting Restriction of 10 lbs,Gait Belt above Incisional Area Recommendations To Nursing Amount of Assist Needed 1 Person Assist Discharge Recommendations PT Discharge Recommendations SNF Rehab Equipment Needed for Home Before FWW if pt goes home Discharge Transportation Needs at Discharge Private Vehicle,Wheelchair/ Cabulance
[2022-02-01] MEDS: hydrOXYzine pamoate 25 MG CAPSULE PO (18:07)
[2022-02-01 18:58] LABS: COVID19 -Nasal RAPID Negative (Negative)
[2022-02-01] MEDS: SENNOSIDES 8.6 MG TABLET 17.2 MG PO (21:41)
[2022-02-01] MEDS: CYCLOBENZAPRINE 10 MG TABLET PO (23:41)
[2022-02-02] VITALS (11 sets, daily range): BP systolic 120–151; BP diastolic 75–93; PULSE 87–117; RESP 17–23; TEMP 37.1–38.2; O2SAT 93–97
[2022-02-02] MEDS: ACETAMINOPHEN 325 MG TABLET 650 MG PO ×5 (01:06→23:00)
[2022-02-02] MEDS: HYDROMORPHONE 0.5 MG INJ IV (01:07)
[2022-02-02] MEDS: OXYCODONE IR 5 MG TABLET 10 MG PO (04:02)
[2022-02-02] MEDS: TRAMADOL 50 MG TABLET PO ×2 (05:34→18:16)
--- NOTE | 2022-02-02 08:49 | PC.NURSE ---
Addendum entered by Forest Zelaya R.N. 02/02/22 19:11: Pt continues to void small amounts. Pain has been an issue recently and he rec'd tylenol, Gabapentin and Tramadol. states his pain is 4/10 now down from 11/10. Pt has calmed but continues to be frustrated by the frequent voiding. Discussed issue with Dr. Adkins. see orders. Original Note: Pt a&o offers no overt c/o pain. Only hurts when I move. Continues to void frequent small amounts.
[2022-02-02] MEDS: GABAPENTIN 600 MG TABLET PO ×3 (09:30→23:00)
[2022-02-02] MEDS: DOCUSATE 100 MG CAPSULE PO ×2 (09:30→21:26)
[2022-02-02] MEDS: METOPROLOL ER 25 MG TABLET PO (09:31)
[2022-02-02] MEDS: lisinopriL 20 MG TABLET PO (09:32)
[2022-02-02] MEDS: CITALOPRAM 10 MG TABLET 20 MG PO (09:32)
[2022-02-02] MEDS: hydroCHLOROthiazide 25 MG TABLET PO (09:32)
[2022-02-02] MEDS: CELECOXIB 200 MG CAPSULE PO (09:32)
--- NOTE | 2022-02-02 10:13 | P.DS_ITS ---
History of Present Illness History of Present Illness Date Patient Seen: 02/02/22 Time Patient Seen: 10:13 Chief complaint: Back pain Narrative: Patient's back pain has been moderate to severe. Denies fever or chills. No nausea or vomiting. Denies shortness of breath or chest pain. Patient denies pain with urination. Patient does have some urinary frequency. Otherwise without complaints. Discharge Providers Provider Date of admission: 01/30/22 07:42 Discharge Date: 02/03/22 Primary care physician: Fadi Oconnor MD Consults: 01/30/22 18:35 Consult to Occupational Therapy Evaluate & Treat Comment: Physician Instructions: Evaluate and treat Consult to Physical Therapy Evaluate & Treat Comment: Physician Instructions: Evaluate and Treat Discharge provider: Tristin Zavala PA-C Exam Vital Signs (past 8 hours): - 02/02/22 04:13 02/02/22 08:04 02/02/22 08:00 Temperature 99.6 F 98.8 F 98.8 F Pulse Rate 104 H 97 H 93 H Respiratory Rate 21 18 20 Blood Pressure 151/93 H 130/75 121/81 Pulse Oximetry 93 94 94 Oxygen Flow Rate 0 02/02/22 09:31 02/02/22 09:32 Temperature Pulse Rate 93 H 93 H Respiratory Rate Blood Pressure 121/81 121/81 Pulse Oximetry Oxygen Flow Rate Oxygen Delivery Method Room Air Oxygen Flow Rate 0 Narrative Exam Narrative: 66-year-old male resting comfortably in bedside chair in no apparent distress. Dressing is clean, dry and intact. Motor functions intact bilateral lower extremities. Sensation grossly intact to light touch bilateral lower extremities. Const General: cooperative, healthy appearing and comfortable Orientation: oriented x3 Resp Effort & Inspection: normal respiratory effort and able to speak in complete sentences Objective Labs Result Diagrams: 02/01/22 14:55 02/01/22 14:55 Labs: Laboratory Results - last 24 hr 02/01/22 02/01/22 02/01/22 13:05 14:55 14:55 WBC 13.2 H RBC 4.87 Hgb 13.9 Hct 42.2 MCV 86.6 MCH 28.6 MCHC 33.0 RDW 12.8 Plt Count 212 Sodium 135 L Potassium 4.0 Chloride 96 L Carbon Dioxide 31 BUN 17 Creatinine 0.96 Estimated GFR > 60 BUN/Creatinine Ratio 17.7 Glucose 142 H Calcium 8.7 Total Bilirubin 0.9 AST 32 ALT 18 Alkaline Phosphatase 58 Total Protein 6.9 Albumin 3.8 Globulin 3.1 Albumin/Globulin Ratio 1.2 Urine Color Yellow Urine Appearance Slightly cloudy Urine pH 6.0 Ur Specific [place] 1.020 Urine Protein 1+ H Urine Glucose (UA) Negative Urine Ketones 1+ H Urine Occult Blood 2+ H Urine Nitrate Negative Urine Bilirubin Negative Urine Urobilinogen 0.2 Ur Leukocyte Esterase Trace H Urine RBC 1-5/hpf Urine WBC 1-5/hpf Ur Squamous Epith Cells 0-1 /hpf Amorphous Sediment 1+ Urine Bacteria Few (2-10) H Urine Mucus 1+ H Ur Culture Indicated? Specimen cultured SARS-CoV-2 (PCR) 02/01/22 18:00 WBC RBC Hgb Hct MCV MCH MCHC RDW Plt Count Sodium Potassium Chloride Carbon Dioxide BUN Creatinine Estimated GFR BUN/Creatinine Ratio Glucose Calcium Total Bilirubin AST ALT Alkaline Phosphatase Total Protein Albumin Globulin Albumin/Globulin Ratio Urine Color Urine Appearance Urine pH Ur Specific [place] Urine Protein Urine Glucose (UA) Urine Ketones Urine Occult Blood Urine Nitrate Urine Bilirubin Urine Urobilinogen Ur Leukocyte Esterase Urine RBC Urine WBC Ur Squamous Epith Cells Amorphous Sediment Urine Bacteria Urine Mucus Ur Culture Indicated? SARS-CoV-2 (PCR) Negative [facility] CLIA ID [id number] [address] [place] [address] RUN DATE: 02/02/22 Specimen Inquiry PAGE 1 RUN TIME: 1015 Name: Jamal Orr Age/Sex: 66/M Attend Dr: Debby Headley MD Unit#: [id number] : 1955Location: AC 222-1 Re01/30/22 Disch: Status: ADM IN SPEC #: [id number] OBED: 02/01/22-1305 STATUS: RES REQ #: [id number] SPDESC: RECD: 02/01/22-[address]: Isabel Cortez P.A-C SOURCE: UA Reflex ENTR: 02/01/22-[address]: Fadi Oconnor MD, Dawei MD FAX TO: ORDERED: URINE CULTURE Procedure Result Verified Site Urine Culture Preliminary 02/02/22918 No growth. 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 Discharge Plan Discharge Plan Patient Disposition: SNF Transfer to: [facility] Discharge orders & Medications Prescriptions: New acetaminophen 325 mg Tablet 650 mg PO Q6HR Qty: 60 0RF docusate sodium 100 mg Capsule 100 mg PO BID Qty: 10 0RF oxycodone 5 mg Tablet 10 mg PO Q3HR PRN (Reason: Pain, Severe (7-10)) Qty: 60 0RF Continued (DME) Syringes 0 .Route .MEDSUPPLY Qty: 1 3RF Dose Instruction: As directed Rx Instructions: As directed testosterone cypionate [Depo-Testosterone] 200 mg/mL oil 200 mg IM Q4W Qty: 1 2RF Label Comments: Pt states he has not used in a couple months metoprolol succinate [Toprol XL] 25 mg tablet extended release 24 hr 25 mg PO QDAY Qty: 90 1RF Rx Instructions: LABS DUE NOV 2021. THANK YOU gabapentin 600 mg tablet 600 mg PO TID Qty: 270 3RF citalopram 20 mg tablet 20 mg PO QDAY Qty: 90 1RF lisinopril-hydrochlorothiazide 20-25 mg tablet 1 tab PO DAILY Qty: 90 1RF trazodone 100 mg tablet 200 mg PO BEDTIME PRN (Reason: insomnia) Qty: 180 1RF (DME) MAX NEEDLES 21GX1 Qty: 50 2RF Dose Instruction: As directed Rx Instructions: USE TO INJECT TESTOSTERONE INTRAMUSCULAR ONCE A WEEK cyclobenzaprine 10 mg tablet 10 mg PO BID PRN (Reason: muscle spasm) Qty: 60 2RF Discontinued celecoxib 200 mg capsule 200 mg PO DAILY acetaminophen [Tylenol Arthritis Pain] 650 mg tablet extended release 1,300 mg PO Q8H PRN (Reason: Pain) Follow up/Referrals: Fadi Oconnor MD [Primary Care Provider] - (Please follow-up with your primary care in regards to cognitive changes and workup for urinary frequency) Debby Headley MD [Physician] - As previously scheduled (10-14 days for postoperative visit) Discharge Health Status Multidrug resistant organism: No MDRO Diet/Activity/Treatments Diet: Diet as Tolerated Activity: Weight-bearing as tolerated, limit bending, twisting, lifting Cold/Heat Therapy: Apply ice to back as needed Other treatments: Dressing/Wound care: -Keep dressing in place until postoperative follow-up office visit. -Okay to shower. Keep wound out of direct water stream. Can use PressNSeal plastic wrap to protect from shower stream. No soaking or submerging until all the scabs fall off (approximately 6 weeks). -Please call the office if dressing becomes wet, soiled, or saturated. Activities: -Limit bending, lifting, twisting x6 weeks. No deep bending (more than 90 degrees) or twisting at the waist. No lifting > 20 pounds. -Walk frequently. -Weight-bearing as tolerated. Use front wheeled walker, and progress to cane when safe. -Continue with home exercises as directed by your physical therapist. -Ice your incision as needed for pain/inflammation/swelling. Protect your skin with a folded pillowcase. -Incentive Spirometer (breathing device from hospital): 5-10xs every hour while awake for the first 1-2 weeks. Follow-up: -Follow-up with your surgeon or PA in the office in 10-14 days after surgery. -Follow-up with your surgeon 6 weeks postoperatively. Call the office if you have chest pain, shortness of breath, significant swelling that will not resolve with elevating, fever over 101?, significantly worsening pain, or are concerned you might need to go to the Emergency Room. [facility]: [phone] Skin/Wound/Dressing Care Report to your healthcare provider any signs of infection, such as:: chills, fever, night sweats, unusual drainage and unusual redness Special Rehabilitation Services Reason for rehabilitation: Post-operative therapy Rehab type: Physical therapy and Occupational therapy Visit Report/Discharge Packet Instructions: DI for Prescription Opioid Use, DI for Transforaminal Lumbar Interbody Fusion Stand Alone Forms: Surgery Discharge Discharge Data Primary Care Provider: Fadi Oconnor
--- NOTE | 2022-02-02 10:15 | CM.DPC ---
MATT Cont: Spoke with Sue @ today and relayed the information that the pt will be discharging tomorrow 02/03. Sue verbalizes that she can accept the patient tomorrow. This message will be relayed to the team. Shanae Vásquez RN/MATT
--- NOTE | 2022-02-02 15:24 | PT.IPTN ---
Current Diagnoses Unspecified thoracic, thoracolumbar and lumbosacral intervertebral disc disorder (01/30/22) Surgery Performed Operation Date: 01/30/22 09:15 Actual Procedures p L4-5, L5-S1 TLIF w. posterior instrumentation-Robot - Debby Headley MD Physical Therapy Treatment Note M2 PT-IP Current Condition Start: 01/31/22 12:45 Freq: NEEDED Status: Active Protocol: Document 02/01/22 15:39 SP (Rec: 02/01/22 17:28 SP [id number]) Physical Therapy Current Condition Current Condition Evaluation Date 01/31/22 Treatment Diagnosis s/p L4-5, L5S1 TLIF; difficulty in walking Onset Date 01/30/22 M3 PT-IP Subjective Start: 01/31/22 12:45 Freq: NEEDED Status: Active Protocol: Document 02/02/22 15:01 LJ (Rec: 02/02/22 15:24 LJ [id number]) Subjective Physical Therapy Visit Type Type Treatment Note Visit Start Time 14:33 Visit Stop Time 15:01 Total Visit Minutes 28 Notes Pt in bed. nd son arrived at end of treatment. Physical Therapy Visit Comments Patient Comments Pt agreeable to working with therapy. Patient Goals return home with and kids to help him but agreeable to SNF to progress strength, works during days a unable to be home and can not provide physical assist. Therapy Pain Assessment Pain When Pain Assessed During Mobility Pain Present Pain Present Denied Pain M4 PT-IP Mobility and Gait Start: 01/31/22 12:45 Freq: NEEDED Status: Active Protocol: Document 02/02/22 15:01 LJ (Rec: 02/02/22 15:24 LJ [id number]) PT-Bed Mobility Assessment Rolling Type of Rolling Roll to Left Level of Assist Standby Assistance Supine to Sit Supine to Sit Standby Assistance,1 Person Assistance,Bedrails Sit to Supine Sit to Supine Contact Guard Assistance,1 Person Assistance,Bedrails Scooting Scooting to Edge of Bed Standby Assistance PT-Transfer Assessment Sit to and From Stand Sit to and from Stand Contact Guard Assistance,1 Person Assistance,Use of Upper Extremities Equipment Transfer Assistive Device Gait Belt,Front Wheeled Walker Orthotic/Prosthetic Devices or Brace: Yes Transfers Transfer Destination Chair Transfer Technique pt ambulate with FWW Transfer Ability Level of Assist Contact Guard Assistance,1 Person Assistance,Use of Upper Extremities Comments Mobility Comments Pt able to unable to recall 1/ 3 precautions forgetting twisting. Required Mod cueing during SL to sitting for hand placement and swinging LEs off bed. Also required cueing to push off bed to assist self with standing. Grabbed the walker with LUE and pushed with RUE. Therapist braced the FWW while pt stood. Pt then ambulated in hallway (see gait ) and returned to sit in chair with cues to reach back and lower himself gently into chair. Pt able to control sitting down without plopping. Once seated pt was given all needs within reach and chair alarm attached to gown. and son in room. Gait Assessment Gait Gait Assistance Required: Contact Guard Assist,1 Person Assist Distance (Feet) 150 Able to Maintain Weight Bearing Status Yes During Gait Assistive Devices Assistive Device Gait Belt,Front Wheeled Walker Orthotic/Prosthetic Devices or Brace: Yes Gait Deviations General Gait Pattern Antalgic,Decreased Stride Length,Decreased Feet Clearance Factors Limiting Gait Function Factors Limiting Gait Function Decreased Activity Tolerance, Decreased Strength,Difficulty Following Directions,Limited Range of Motion,Poor Balance, Poor Safety Awareness Comments Gait Comments Pt improved ambulation with distance walked and posture. Required cueing to keep FWW further ahead of himself.Given one cue to stand upright and pt able to correct and maintain good posture. Practiced turning without twisting and pt demonstrated understanding. Knees were flexed during gait but did not caust LOB. Cued to relax shoulders and slide FWW infront of him rather than lean heavily on it. Pt understanding all cues given and demonstrated compliance. M5 PT-IP Objective Assessments Start: 01/31/22 12:45 Freq: NEEDED Status: Active Protocol: Document 01/31/22 10:10 AB (Rec: 01/31/22 13:10 AB [id number]) Orientation Orientation/Cognition Level of Alertness Confusional State Orientation Name,Birthday Safety Awareness Decreased Safety Awareness Memory Description Short Term Impaired,Shelter Impaired Gross Range of Motion Lower Extremity ROM Assessment Within Functional Limits Strength Lower Extremity Strength Hip 4-/5 Knee 4-/5 Sensation Assessment Sensation Gross Sensation WNL Muscle Tone Muscle Tone WNL Yes M6 PT-IP Treatment Start: 01/31/22 12:45 Freq: NEEDED Status: Active Protocol: Document 02/02/22 15:01 LJ (Rec: 02/02/22 15:24 [id number]) Physical Therapy Treatment Exercises Exercises Ankle Pumps,Gluteal Sets, Straight Leg Raises,Short Arc Quads,Seated Knee Flexion/ Extension Education Education Provided Precautions,Safety Other Treatments Other Treatment Performed Pt needed reminding of twwisting precaution. He is moving without pain and has improved activity tolerance. Able to progress gait but did not attempt stairs. Pt still shows some confusion withmovement and needs to be cued often. He will benefit from SNF to improve strength, gait, and increase independence. Will also need to internalize precautions and demonstrate compliance independently. M7 PT-IP Assessment and Plan Start: 01/31/22 12:45 Freq: NEEDED Status: Active Protocol: Document 02/02/22 15:01 (Rec: 02/02/22 15:24 [id number]) PT Summary Assessment and Plan Potential Rehabilitation Potential Fair Status of Condition at Evaluation Evolving Summary Impairments Pain,ROM,Strength,Balance, Coordination,Sensation,Tone, Cognition,Bed Mobility, Transfers,Gait,Activity Tolerance Progress Towards Goals Progressing Toward Goals,Slow Progress due to Activity Tolerance,Slow Progress - Other Assessment Summary Pt clearer in thnking but still requiring cues for mobility, gait with FWW, and precautions. Pt vrbalizes concerns often and needs to put attention on the present task rather than thinkiong about what is coming next. He will benefit from structured and consistent treatments at SNF rehab to improve strength, safety, cognition, and independence. Goals Bed Mobility Goal Standby Assistance Transfer Goal Standby Assistance,Front Wheeled Walker Gait Goal Standby Assistance,Front Wheel Walker Gait Distance 150 Other Goals up/down 3 platform steps using FWW CGA Days to Meet Goals 10 Frequency of Treatment Frequency Of Treatment Twice a Day Treatment Plan Physical Therapy Treatment Plan Bed Mobility Training,Transfer Training,Gait Training, Therapeutic Exercise,Balance Retraining,Post Op Education, Discharge Planning,Hot or Cold Pack,Neuromuscular Re-ed, Coordination Retraining,Manual Therapy Other Recommendations and Next Treatment precautions, bed mob, safety Focus sequencing transfers properly with FWW, gait further distance. Precautions Lumbar Precautions Log Roll,No Twisting,Limit Bending,Lifting Restriction of 10 lbs,Gait Belt above Incisional Area Recommendations To Nursing Amount of Assist Needed 1 Person Assist Discharge Recommendations PT Discharge Recommendations SNF Rehab Transportation Needs at Discharge Private Vehicle,Wheelchair/ Cabulance
[2022-02-02] MEDS: TRAZODONE 100 MG TABLET 200 MG PO (21:26)
[2022-02-02] MEDS: SENNOSIDES 8.6 MG TABLET 17.2 MG PO (21:26)
[2022-02-03] VITALS (12 sets, daily range): BP systolic 128–146; BP diastolic 71–87; PULSE 83–100; RESP 17–19; TEMP 36.9–39.1; O2SAT 93–97
[2022-02-03] MEDS: ACETAMINOPHEN 325 MG TABLET 650 MG PO ×3 (05:53→18:26)
--- NOTE | 2022-02-03 07:19 | DI.RAD.S_ITS ---
PROCEDURE: XR CHEST 1V INDICATIONS: temp of 102.3. Please evaluate for pneumonia, sepsis. TECHNIQUE: One view of the chest was acquired. COMPARISON: None. FINDINGS: Surgical changes and devices: None. Lungs and pleura: An incomplete inspiratory result is noted, causing a crowded appearance to the lung markings. No focal infiltrates are seen. No pneumothorax or significant pleural effusions are seen. Mediastinum: Mediastinal contours appear normal. Heart size is normal. Bones and chest wall: No suspicious bony lesions. Age-appropriate bony degenerative changes are seen. Overlying soft tissues appear unremarkable. IMPRESSION: Low lung volumes, without a focal infiltrate seen. If there is clinical concern for a developing pulmonary process, a short-term followup chest series (with PA and lateral views, performed in deep inspiration) is suggested for further evaluation. Dictated by: Ronald Gaming M.D. on 02/03/2022 at 9:05 Approved by: Ronald Gaming M.D. on 02/03/2022 at 9:06
[2022-02-03 09:26] LABS: Add Manual Diff / Slide Review NO; Basophils Absolute Auto 0 /uL (0-100); Basophils Percent Auto 0.2 % (0-2); Eosinophils Absolute Auto 0 /uL (0-450); Eosinophils Percent Auto 0.5 % (2-4); Hematocrit 41.3 % (41-53); Hemoglobin 13.5 g/dL (13.5-17.5); Lymphocytes Absolute Auto 500 /uL (1100-4500); Lymphocytes Percent Auto 10.6 % (25-40); Mean Corpuscular HGB Conc 32.6 % (30-36); Mean Corpuscular Hemoglobin 28.2 PG (26-34); Mean Corpuscular Volume 86.4 fL (80-100); Monocytes Absolute Auto 600 /uL (0-900); Monocytes Percent Auto 13.1 % (3-14); Neutrophils Absolute Auto 3600 /uL (1500-7000); Neutrophils Percent Auto 75.6 % (50-75); Platelet Count 226 X10^3/uL (150-400); Red Blood Cell Count 4.78 X10^6/uL (4.5-5.9); Red Cell Distribution Width 12.8 % (11.6-14.8); White Blood Cell Count 4.8 X10^3/uL (4.5-11.0)
[2022-02-03 09:42] LABS: Lactate (Lactic Acid) 1.3 mmol/L (0.7-2.1)
--- NOTE | 2022-02-03 09:42 | P.CONS_ITS ---
History of Present Illness Consult details Date Patient Seen: 02/03/22 Chief complaint: Back pain Narrative: Jamal Orr is a 66yo M with PMH of CHF, HTN, HLD and depression who underwen t back surgery with Dr. Headley on 01/30 and developed a fever of 102.3 overnight on 02/03. Medicine consulted to workup fever. Patient reports improvement in back pain since the surgery. Denies new cough, dysuria, abd pain, diarrhea or chills. He feels quite well actually. He has no currently complaints. Meds Home Medications and Allergies Home Medications Medication Instructions Recorded Confirmed Type Syringes #1 ea 07/06/18 01/31/22 Rx cyclobenzaprine 10 mg tablet 10 mg PO BID PRN muscle spasm #60 08/01/21 01/15/22 Rx tabs MAX NEEDLES #50 ea 09/26/21 01/31/22 Rx testosterone cypionate 200 mg/mL 200 mg IM Q4W #1 mL 09/28/21 01/30/22 Rx intramuscular oil (Depo-Testosterone) metoprolol succinate 25 mg 25 mg PO QDAY #90 tabs 10/05/21 01/30/22 Rx tablet,extended release 24 hr (Toprol XL) gabapentin 600 mg tablet 600 mg PO TID #270 tabs 10/15/21 01/30/22 Rx citalopram 20 mg tablet 20 mg PO QDAY #90 tabs 01/08/22 01/30/22 Rx lisinopril 20 1 tab PO DAILY #90 tabs 01/08/22 01/30/22 Rx mg-hydrochlorothiazide 25 mg tablet trazodone 100 mg tablet 200 mg PO BEDTIME PRN insomnia 01/23/22 01/30/22 Rx #180 tabs acetaminophen 325 mg tablet 650 mg PO Q6HR #60 tabs 02/02/22 Rx docusate sodium 100 mg capsule 100 mg PO BID #10 caps 02/02/22 Rx oxycodone 5 mg tablet 10 mg PO Q3HR PRN Pain, Severe 02/02/22 Rx (7-10) #60 tabs Allergies Allergy/AdvReac Type Severity Reaction Status Date / Time No Known Drug Allergies Allergy Verified 01/30/22 08:27 Review of Systems Review of Systems Narrative: All other systems reviewed with the patient and are negative unless otherwise stated. Exam Vital Signs (past 8 hours): - 02/03/22 02:00 02/03/22 05:53 02/03/22 04:00 Temperature 99.1 F 100.6 F H 100.4 F H Pulse Rate 100 H Respiratory Rate 19 Blood Pressure 146/80 H Pulse Oximetry 94 02/03/22 07:21 Temperature 99.4 F Pulse Rate Respiratory Rate Blood Pressure Pulse Oximetry Oxygen Delivery Method Room Air Oxygen Flow Rate 0 Narrative Exam Narrative: GEN: no acute distress HEENT: moist mucous membranes, PERRL NECK: trachea midline, no JVD CV: regular rate and rhythm, no murmurs PULM: clear bilaterally ABD: soft, nontender, nondistended, no organomegaly EXT: warm and well perfused with no edema NEURO: awake, alert, oriented, no focal deficits Objective Labs Result Diagrams: 02/03/22 09:15 02/03/22 09:15 Labs: Laboratory Results - last 24 hr 02/03/22 09:15 WBC 4.8 D RBC 4.78 Hgb 13.5 Hct 41.3 MCV 86.4 MCH 28.2 MCHC 32.6 RDW 12.8 Plt Count 226 Neut % (Auto) 75.6 H Lymph % (Auto) 10.6 L [place] % (Auto) 13.1 Eos % (Auto) 0.5 L Baso % (Auto) 0.2 Neut # (Auto) 3600 Lymph # (Auto) 500 L [place] # (Auto) 600 Eos # (Auto) 0 Baso # (Auto) 0 PFSH Medical History Anesthesia 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 Bleeding from ear Congestive heart failure Coronary artery aneurysm Essential hypertension (04/23/16) Gait instability 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 Hypogonadism in male (04/23/16) Pure hypercholesterolemia (07/30/16) Surgical History H/O surgical amputation of finger H/O vasectomy Hx of tonsillectomy Family History Father Heart attack Mother Dementia Sister Cancer Social History household members: spouse and family Tobacco & Substance Use Smoking Status: Never smoker alcohol intake: former substance use type: does not use Assessment & Plan Assessment & Plan narrative: # acute fever with concern for hospital acquired infection - febrile to 102.3, WBC normal - check blood, urine cultures - start cefepime and vanc - CXR normal - procal elevated at 0.86 suggesting possible infection (>0.5 usually bacterial infection present) - can dc abx if cultures neg at 24 hours # postop lumbar spine surgery on 01/30 - management per ortho # HTN, chronic - continue home metop XL 25mg daily and lisinopril 20mg daily # depression, chronic - continue home celexa Code status is full code. COVID negative. DVT prophylaxis with SCD's. Proxy is Fela. I have reviewed home meds and used all available resources to reconcile the home meds. Medicine will follow along. Thank you for allowing us to participate in the care of this patient. Time Spent With Patient Critical Care time: I spent a total of [] minutes of critical care time on this patient's care today; this time is exclusive of procedural time.
[2022-02-03 09:43] LABS: Alanine Aminotransferase 54 IU/L (<50); Albumin 3.9 g/dL (3.5-5.0); Albumin Globulin Ratio 1.1 (1.0-2.8); Alkaline Phosphatase 115 U/L (38-126); Aspartate Aminotransferase 64 IU/L (17-59); BUN Creatinine Ratio 21.9 (6-22); Bilirubin Total 0.9 mg/dL (0.2-1.3); Blood Urea Nitrogen 16 mg/dL (9-20); Calcium 8.6 mg/dL (8.4-10.2); Carbon Dioxide 29 mmol/L (22-32); Chloride 91 mmol/L (98-107); Estimated Glomerular Filt Rate > 60 mL/min (>60); Globulin 3.6 g/dL (1.7-4.1); Glucose 116 mg/dL (80-110); HEMOLYSIS < 15 (0-50); Potassium 3.3 mmol/L (3.4-5.1); Sodium 133 mmol/L (137-145); Total Protein 7.5 g/dL (6.3-8.2)
[2022-02-03 09:44] LABS: Magnesium 1.9 mg/dL (1.6-2.3)
[2022-02-03 09:52] LABS: NT-proBNP (BNP-Adult 18+) 390 pg/mL (<125)
[2022-02-03 10:00] LABS: Procalcitonin 0.86 ng/mL (<0.5)
[2022-02-03] MEDS: SODIUM CHLORIDE 0.9% 1,000 ML 1000 ML IV (10:01)
[2022-02-03] MEDS: hydroCHLOROthiazide 25 MG TABLET PO (10:12)
[2022-02-03] MEDS: GABAPENTIN 600 MG TABLET PO ×3 (10:12→21:00)
[2022-02-03] MEDS: lisinopriL 20 MG TABLET PO (10:12)
[2022-02-03] MEDS: CITALOPRAM 10 MG TABLET 20 MG PO (10:12)
[2022-02-03] MEDS: CELECOXIB 200 MG CAPSULE PO (10:13)
[2022-02-03] MEDS: DOCUSATE 100 MG CAPSULE PO ×2 (10:13→21:00)
[2022-02-03] MEDS: METOPROLOL ER 25 MG TABLET PO (10:13)
[2022-02-03] MEDS: VANCOMYCIN 1,000 MG/200 ML PIGGYBACK 200 MG IV ×2 (11:13→18:27)
--- NOTE | 2022-02-03 11:55 | PC.NURSE ---
Addendum entered by Mireille Almaraz R.N. 02/03/22 18:43: Patient is frustrated because he is not able to transfer well and he does not follow direction well. Seems to be that he is scared of falling. He is back to bed and comfortable. He is voiding per urinal and condom catheter has been taken off. U/a sent to lab. Addendum entered by Mireille Almaraz R.N. 02/03/22 15:12: Patient tolerated his iv antibiotics well. He is sitting up in his chair. Patient r.hip is red and warm to touch, Dr. Adkins aware of this. Patient has been afebrile thus far. He is comfortable. Original Note: Patient is afebrile this morning. He took his iv out last night. New one started to r.ac, He was given a normal saline bolus, and is now getting iv vanco through iv, tolerating well. into see patient and looked at patients back, dressing cdi. BPM DEVELOPER noticed that patient has some redness to his r.hip and this is warm to touch. will be down to look at this in a bit. Per PT patient is leaning to the left when amublating and is weaker on this side. He is not following commands well, acts like he is confused at times and is not totally getting conversations. Hospitalist aware of this.
--- NOTE | 2022-02-03 11:59 | PT.IPTN ---
Current Diagnoses Unspecified thoracic, thoracolumbar and lumbosacral intervertebral disc disorder (01/30/22) Surgery Performed Operation Date: 01/30/22 09:15 Actual Procedures p L4-5, L5-S1 TLIF w. posterior instrumentation-Robot - Debby Headley MD Physical Therapy Treatment Note M2 PT-IP Current Condition Start: 01/31/22 12:45 Freq: NEEDED Status: Active Protocol: Document 02/01/22 15:39 SP (Rec: 02/01/22 17:28 SP [id number]) Physical Therapy Current Condition Current Condition Evaluation Date 01/31/22 Treatment Diagnosis s/p L4-5, L5S1 TLIF; difficulty in walking Onset Date 01/30/22 M3 PT-IP Subjective Start: 01/31/22 12:45 Freq: NEEDED Status: Active Protocol: Document 02/03/22 11:59 AW (Rec: 02/03/22 12:49 AW [id number]) Subjective Physical Therapy Visit Type Type Treatment Note Visit Start Time 11:40 Visit Stop Time 11:59 Total Visit Minutes 19 Notes Nursing informs PT that pt just transferred to the chair and was a heavy 2-person max assist. Physical Therapy Visit Comments Patient Comments I'm feeling off - like I'm coming down with something. Patient Goals return home with and kids to help him but agreeable to SNF to progress strength, works during days a unable to be home and can not provide physical assist. Therapy Pain Assessment Pain When Pain Assessed During Mobility Pain Present Pain Present Denied Pain M4 PT-IP Mobility and Gait Start: 01/31/22 12:45 Freq: NEEDED Status: Active Protocol: Document 02/03/22 11:59 AW (Rec: 02/03/22 12:49 AW [id number]) PT-Transfer Assessment Sit to and From Stand Sit to and from Stand Moderate Assistance,Maximum Assistance,1 Person Assistance ,Use of Upper Extremities Equipment Transfer Assistive Device Gait Belt,Front Wheeled Walker Transfers Transfer Destination Chair Transfer Ability Level of Assist Moderate Assistance,Maximum Assistance,1 Person Assistance ,Use of Upper Extremities Comments Mobility Comments Pt is more confused today. Per EMR, pt had elevated temperature overnight and pt reports feeling off. He had just transferred to the chair with RN and SUBSTATION OPERATOR AUTOMATIC as a heavy 2- person max. Pt was leaning toward his left in sitting but seemed unaware of leaning. He agreed to stand up, needing max A to stand. He stood tall with B knee flexion and slight leftward lean. Initial standing was unsteady and pt needed balance assist for weight shifting. He leaned heavily on the walker with BUE as he marched in place and needed assist for trunk righting after leaning forward . Mod/max A for controlled sit . Pt completed sit to stand and marching in place a second time with same level of assist required. Pt was left with call light in reach and chair alarm on for safety. Gait Assessment Comments Gait Comments Not safe for ambulation today. PT-Balance Assessment Sitting Balance and Reactions Static Sitting Balance Ability Good Dynamic Sitting Balance Ability Fair Standing Balance and Reactions Static Standing Balance Ability Poor Dynamic Standing Balance Ability Poor Device Used FWW M5 PT-IP Objective Assessments Start: 01/31/22 12:45 Freq: NEEDED Status: Active Protocol: Document 01/31/22 10:10 AB (Rec: 01/31/22 13:10 AB [id number]) Orientation Orientation/Cognition Level of Alertness Confusional State Orientation Name,Birthday Safety Awareness Decreased Safety Awareness Memory Description Short Term Impaired,Shelter Impaired Gross Range of Motion Lower Extremity ROM Assessment Within Functional Limits Strength Lower Extremity Strength Hip 4-/5 Knee 4-/5 Sensation Assessment Sensation Gross Sensation WNL Muscle Tone Muscle Tone WNL Yes M6 PT-IP Treatment Start: 01/31/22 12:45 Freq: NEEDED Status: Active Protocol: Document 02/03/22 11:59 AW (Rec: 02/03/22 12:49 AW [id number]) Physical Therapy Treatment Education Education Provided Precautions,Safety M7 PT-IP Assessment and Plan Start: 01/31/22 12:45 Freq: NEEDED Status: Active Protocol: Document 02/03/22 11:59 AW (Rec: 02/03/22 12:49 AW [id number]) PT Summary Assessment and Plan Potential Rehabilitation Potential Fair Status of Condition at Evaluation Evolving Summary Impairments Pain,ROM,Strength,Balance, Coordination,Sensation,Tone, Cognition,Bed Mobility, Transfers,Gait,Activity Tolerance Progress Towards Goals Progressing Toward Goals,Slow Progress due to Activity Tolerance,Slow Progress - Other Assessment Summary Pt more confused today and needing increased assist (mod/ max A x 1-2) for transfers with FWW. Pt was leaning to the left but strength was symmetric. He will require SNF rehab to improve strength, safety, and mobility independence. Goals Bed Mobility Goal Standby Assistance Transfer Goal Standby Assistance,Front Wheeled Walker Gait Goal Standby Assistance,Front Wheel Walker Gait Distance 150 Other Goals up/down 3 platform steps using FWW CGA Days to Meet Goals 10 Frequency of Treatment Frequency Of Treatment Twice a Day Treatment Plan Physical Therapy Treatment Plan Bed Mobility Training,Transfer Training,Gait Training, Therapeutic Exercise,Balance Retraining,Post Op Education, Discharge Planning,Hot or Cold Pack,Neuromuscular Re-ed, Coordination Retraining,Manual Therapy Other Recommendations and Next Treatment precautions, bed mob, safety Focus sequencing transfers properly with FWW, gait further distance. Precautions Lumbar Precautions Log Roll,No Twisting,Limit Bending,Lifting Restriction of 10 lbs,Gait Belt above Incisional Area Recommendations To Nursing Amount of Assist Needed 2 Person Assist Discharge Recommendations PT Discharge Recommendations SNF Rehab Equipment Needed for Home Before FWW if pt goes home Discharge Transportation Needs at Discharge Private Vehicle,Wheelchair/ Cabulance
--- NOTE | 2022-02-03 12:02 | PM.PNPO.1 ---
Subjective Subjective Date Patient Seen: 02/03/22 Time Patient Seen: 11:40 Interval history: Perez had some problems with confusion yesterday and overnight. He was scheduled to go to rehab today. He was having fevers overnight and some increased confusion and a [facility] consultation was obtained for evaluation of possible sepsis. He is currently using a condom catheter and having urinary frequency. He is not having severe back pain. He is tolerating his pain medications. He is not having any new leg pain. He says that he feels a little bit off overall. He says he feels like he is getting the flu. When nursing staff attempted to mobilize him they noticed that he seemed to have problems with his balance and that his ambulation was worse than yesterday. He has been having some ongoing problems with his balance to the extent that he says that he has been seated to urinate for a couple of years. He is not having any acute pain. He received some Dilaudid and some oxycodone yesterday. He was taking gabapentin and Tylenol preoperatively for pain. Exam Vital Signs (past 8 hours): - 02/03/22 05:53 02/03/22 07:21 02/03/22 10:20 Temperature 100.6 F H 99.4 F 99.1 F Pulse Rate 100 H Respiratory Rate 18 Blood Pressure 130/83 Pulse Oximetry 96 Oxygen Flow Rate 0 Oxygen Delivery Method Room Air Oxygen Flow Rate 0 Narrative Exam Narrative: He is alert he is following commands without difficulty in bed he is able to roll to both sides without substantial difficulty. He is resting comfortably. Lungs are clear. Cor regular rate and rhythm, abdomen benign, lumbar spine dressing intact and benign, able to fire toe flexors and extensors and bilateral lower extremities with normal strength, sensation intact in bilateral lower extremities, calves are soft bilateral Objective Labs Result Diagrams: 02/03/22 09:15 02/03/22 09:15 Labs: Laboratory Results - last 24 hr 02/03/22 02/03/22 02/03/22 09:15 09:15 09:15 WBC 4.8 D RBC 4.78 Hgb 13.5 Hct 41.3 MCV 86.4 MCH 28.2 MCHC 32.6 RDW 12.8 Plt Count 226 Neut % (Auto) 75.6 H Lymph % (Auto) 10.6 L Schuyler % (Auto) 13.1 Eos % (Auto) 0.5 L Baso % (Auto) 0.2 Neut # (Auto) 3600 Lymph # (Auto) 500 L Schuyler # (Auto) 600 Eos # (Auto) 0 Baso # (Auto) 0 Sodium 133 L Potassium 3.3 L Chloride 91 L Carbon Dioxide 29 BUN 16 Creatinine 0.73 Estimated GFR > 60 BUN/Creatinine Ratio 21.9 Glucose 116 H Lactate Calcium 8.6 Magnesium Total Bilirubin 0.9 AST 64 H ALT 54 H Alkaline Phosphatase 115 D NT-Pro-B Natriuret Pep 390 H Total Protein 7.5 Albumin 3.9 Globulin 3.6 Albumin/Globulin Ratio 1.1 Procalcitonin 0.86 H 02/03/22 02/03/22 09:15 09:15 WBC RBC Hgb Hct MCV MCH MCHC RDW Plt Count Neut % (Auto) Lymph % (Auto) Schuyler % (Auto) Eos % (Auto) Baso % (Auto) Neut # (Auto) Lymph # (Auto) Schuyler # (Auto) Eos # (Auto) Baso # (Auto) Sodium Potassium Chloride Carbon Dioxide BUN Creatinine Estimated GFR BUN/Creatinine Ratio Glucose Lactate 1.3 Calcium Magnesium 1.9 Total Bilirubin AST ALT Alkaline Phosphatase NT-Pro-B Natriuret Pep Total Protein Albumin Globulin Albumin/Globulin Ratio Procalcitonin PFSH Medical History Anesthesia 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 Bleeding from ear Congestive heart failure Coronary artery aneurysm Essential hypertension (04/23/16) Gait instability 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 posterior instrumentation-Robot Debby Headley MD Postoperative day: 4 Postoperative status: febrile Postoperative status narrative: He is progressing and mobilizing but is still having issues postoperatively. He has had fevers. His chest x-ray did not show evidence of a pneumonia. He has a normal white count. His incision is benign. He is having urinary frequency and has a condom cath in place. We will repeat his urinalysis and send a urine culture. I encouraged him to mobilize out of bed to the chair and appreciate hospitalist consultation regarding low-grade fevers and possible sepsis. Anticipate discharge to [facility] facility tomorrow. Postoperative plan: ambulate Postoperative plan narrative: Continue hospitalization until tomorrow. Recheck urinalysis. Continue to mobilize with physical therapy. Hold Dilaudid and oxycodone for pain. Continue Tylenol, gabapentin and tramadol as needed for pain. Mobilize as tolerated. Continue to monitor his temperature. I have reconfirmed that he did have a temperature to 102 yesterday. Anticipate discharge to [facility] facility tomorrow. Time Spent With Patient Time with patient: 25 - 35 minutes
[2022-02-03] MEDS: CEFEPIME 2 GM in SODIUM CHLORIDE 0.9% 100 ML IV (13:21)
[2022-02-03] MEDS: POTASSIUM CHLORIDE 20 MEQ TAB 40 MEQ PO ×2 (13:56→21:57)
[2022-02-03 16:12] LABS: COVID19 -Nasal RAPID Negative (Negative)
[2022-02-03] MEDS: SENNOSIDES 8.6 MG TABLET 17.2 MG PO (21:00)
[2022-02-03] MEDS: ACETAMINOPHEN 325 MG TABLET PO (21:00)
--- NOTE | 2022-02-03 21:14 | DI.RAD.S_ITS ---
PROCEDURE: XR CHEST 1V INDICATIONS: change in condition TECHNIQUE: One view of the chest was acquired. COMPARISON: [facility], CR, XR CHEST 1V, 02/03/2022, 9:33. FINDINGS: Surgical changes and devices: None. Lungs and pleura: Lungs are clear. No pleural effusions or pneumothorax. Mediastinum: Mediastinal contours appear normal. Heart size is normal. Bones and chest wall: No suspicious bony lesions. Overlying soft tissues appear unremarkable. IMPRESSION: 1. No acute cardiopulmonary disease. Dictated by: Sanjay Courtney M.D. on 02/03/2022 at 22:48 Approved by: Sanjay Courtney M.D. on 02/03/2022 at 22:58
[2022-02-03 21:34] LABS: Add Manual Diff / Slide Review NO; Basophils Absolute Auto 0 /uL (0-100); Basophils Percent Auto 0.5 % (0-2); Eosinophils Absolute Auto 0 /uL (0-450); Eosinophils Percent Auto 0.8 % (2-4); Hematocrit 37.4 % (41-53); Hemoglobin 12.2 g/dL (13.5-17.5); Lymphocytes Absolute Auto 600 /uL (1100-4500); Lymphocytes Percent Auto 15.5 % (25-40); Mean Corpuscular HGB Conc 32.6 % (30-36); Mean Corpuscular Hemoglobin 28.3 PG (26-34); Mean Corpuscular Volume 86.7 fL (80-100); Monocytes Absolute Auto 600 /uL (0-900); Monocytes Percent Auto 15.4 % (3-14); Neutrophils Absolute Auto 2800 /uL (1500-7000); Neutrophils Percent Auto 67.8 % (50-75); Platelet Count 196 X10^3/uL (150-400); Red Blood Cell Count 4.32 X10^6/uL (4.5-5.9); Red Cell Distribution Width 12.9 % (11.6-14.8); White Blood Cell Count 4.1 X10^3/uL (4.5-11.0)
[2022-02-03 21:44] LABS: Lactate (Lactic Acid) 1.2 mmol/L (0.7-2.1)
[2022-02-03 21:45] LABS: Alanine Aminotransferase 49 IU/L (<50); Albumin 3.3 g/dL (3.5-5.0); Albumin Globulin Ratio 1.1 (1.0-2.8); Alkaline Phosphatase 110 U/L (38-126); Aspartate Aminotransferase 59 IU/L (17-59); BUN Creatinine Ratio 29.3 (6-22); Bilirubin Total 0.5 mg/dL (0.2-1.3); Blood Urea Nitrogen 22 mg/dL (9-20); Carbon Dioxide 27 mmol/L (22-32); Chloride 95 mmol/L (98-107); Estimated Glomerular Filt Rate > 60 mL/min (>60); Globulin 2.9 g/dL (1.7-4.1); Glucose 113 mg/dL (80-110); HEMOLYSIS < 15 (0-50); Magnesium 1.9 mg/dL (1.6-2.3); Potassium 3.7 mmol/L (3.4-5.1); Sodium 130 mmol/L (137-145); Total Protein 6.2 g/dL (6.3-8.2)
[2022-02-03 22:01] LABS: Procalcitonin 0.73 ng/mL (<0.5)
[2022-02-03] MEDS: SODIUM CHLORIDE 0.9% 500 ML 60 ML IV (22:30)
--- NOTE | 2022-02-03 22:33 | DI.RAD.S_ITS ---
PROCEDURE: XR CHEST 2V INDICATIONS: need additional views due to pt condition change TECHNIQUE: 2 views of the chest were acquired. COMPARISON: [facility], CR, XR CHEST 1V, 02/03/2022, 9:33. [facility], CR, XR CHEST 1V, 02/03/2022, 21:31. FINDINGS: Surgical changes and devices: None. Lungs and pleura: Lungs are clear. No pleural effusions or pneumothorax. Mediastinum: Mediastinal contours are normal. Heart size is normal. Bones and chest wall: No suspicious bony abnormalities. Soft tissues appear unremarkable. IMPRESSION: 1. No acute cardiopulmonary disease. Dictated by: Sanjay Courtney M.D. on 02/04/2022 at 0:58 Approved by: Sanjay Courtney M.D. on 02/04/2022 at 0:59
[2022-02-04] VITALS (8 sets, daily range): BP systolic 111–141; BP diastolic 74–92; PULSE 75–119; RESP 16–24; TEMP 36.6–38.5; O2SAT 91–96; BMI 26.9
[2022-02-04] MEDS: ACETAMINOPHEN 325 MG TABLET 650 MG PO ×3 (00:26→11:24)
[2022-02-04] MEDS: VANCOMYCIN 1,000 MG/200 ML PIGGYBACK 200 MG IV (00:26)
[2022-02-04 00:29] LABS: Influenza A - CEPHEID Flu A POSITIVE (NEGATIVE); Influenza B - CEPHEID Flu B NEGATIVE (NEGATIVE); Respiratory Syncytial Virus NEGATIVE (Not Detect)
[2022-02-04] MEDS: CEFEPIME 2 GM in SODIUM CHLORIDE 0.9% 100 ML IV (01:38)
[2022-02-04 06:14] LABS: Lactate (Lactic Acid) 1.2 mmol/L (0.7-2.1)
[2022-02-04 06:23] LABS: Alanine Aminotransferase 50 IU/L (<50); Albumin 3.3 g/dL (3.5-5.0); Albumin Globulin Ratio 1.1 (1.0-2.8); Alkaline Phosphatase 92 U/L (38-126); Aspartate Aminotransferase 57 IU/L (17-59); BUN Creatinine Ratio 24.4 (6-22); Bilirubin Total 0.6 mg/dL (0.2-1.3); Blood Urea Nitrogen 19 mg/dL (9-20); Carbon Dioxide 28 mmol/L (22-32); Chloride 97 mmol/L (98-107); Estimated Glomerular Filt Rate > 60 mL/min (>60); Glucose 108 mg/dL (80-110); HEMOLYSIS < 15 (0-50); Magnesium 1.8 mg/dL (1.6-2.3); Sodium 131 mmol/L (137-145); Total Protein 6.3 g/dL (6.3-8.2)
[2022-02-04 06:32] LABS: NT-proBNP (BNP-Adult 18+) 98 pg/mL (<125)
[2022-02-04 06:39] LABS: Procalcitonin 0.63 ng/mL (<0.5)
[2022-02-04 06:41] LABS: Add Manual Diff / Slide Review NO; Basophils Absolute Auto 0 /uL (0-100); Basophils Percent Auto 0.6 % (0-2); Eosinophils Absolute Auto 0 /uL (0-450); Eosinophils Percent Auto 0.5 % (2-4); Hematocrit 36.3 % (41-53); Hemoglobin 12.2 g/dL (13.5-17.5); Lymphocytes Absolute Auto 700 /uL (1100-4500); Mean Corpuscular HGB Conc 33.5 % (30-36); Mean Corpuscular Hemoglobin 28.7 PG (26-34); Mean Corpuscular Volume 85.8 fL (80-100); Monocytes Absolute Auto 600 /uL (0-900); Monocytes Percent Auto 12.2 % (3-14); Neutrophils Absolute Auto 3900 /uL (1500-7000); Neutrophils Percent Auto 73.7 % (50-75); Platelet Count 213 X10^3/uL (150-400); Red Blood Cell Count 4.23 X10^6/uL (4.5-5.9); Red Cell Distribution Width 12.7 % (11.6-14.8); White Blood Cell Count 5.3 X10^3/uL (4.5-11.0)
[2022-02-04] MEDS: IBUPROFEN 400 MG TABLET 800 MG PO (06:41)
--- NOTE | 2022-02-04 06:59 | PM.PNPO.1 ---
Subjective Subjective Date Patient Seen: 02/04/22 Time Patient Seen: 06:59 Interval history: Pt sitting up in bed, comfortable but 'I feel lousy.' Tested positive for influenza A last night. Was febrile to 102.2 last night, 101.3 this morning. Given IBPN and Tylenol for fever and pain, and post-op pain seems to be well-controlled with this; he does have tramadol written for BTP. Also receiving cyclobenzaprine PRN and gabapentin scheduled. He has several steps to get into his home and says this is what has been preventing him from being able to discharge home. He would prefer to go home vs rehab, but he would need to be carried up the steps into his home. Also, he would need to be able to get in and out of bed and mobilize with standby assist only, which from his report he has not yet been able to do. Condom catheter is off; pt now ambulating to bedside commode with assistance and denies urinary symptoms. Per nursing, he was very confused and anxious overnight. He had to be reoriented to self and place multiple times and needs frequent cuing with activity. Exam Vital Signs (past 8 hours): - 02/03/22 23:35 02/04/22 00:26 02/04/22 00:00 Temperature 98.4 F 98.1 F 98.7 F Pulse Rate 75 Respiratory Rate 18 Blood Pressure 111/76 Pulse Oximetry 91 02/04/22 05:20 02/04/22 05:35 02/04/22 06:41 Temperature 99.0 F 98.7 F 101.3 F H Pulse Rate 89 Respiratory Rate 18 Blood Pressure 141/74 H Pulse Oximetry 92 02/04/22 06:42 Temperature 101.3 F H Pulse Rate 119 H Respiratory Rate 24 Blood Pressure 131/87 Pulse Oximetry 93 Oxygen Delivery Method Room Air Oxygen Flow Rate 0 Narrative Exam Narrative: Low back dressing has been reinforced and is CDI. 5/5 strength in hip flexors, quadriceps, hamstrings, DF, PF, EHL bilaterally. Sensation to light touch intact throughout BLE. Calves soft, compressible, nontender and without palpable cords or masses. Blood and urine cultures are pending; he remains on vancomycin. He was prescribed prednisone last night by hospitalist service; assume for respiratory issues. Objective Labs Result Diagrams: 02/04/22 05:30 02/04/22 05:30 Labs: Laboratory Results - last 24 hr 02/03/22 02/03/22 02/03/22 09:15 09:15 09:15 WBC 4.8 D RBC 4.78 Hgb 13.5 Hct 41.3 MCV 86.4 MCH 28.2 MCHC 32.6 RDW 12.8 Plt Count 226 Neut % (Auto) 75.6 H Lymph % (Auto) 10.6 L Coffey % (Auto) 13.1 Eos % (Auto) 0.5 L Baso % (Auto) 0.2 Neut # (Auto) 3600 Lymph # (Auto) 500 L Coffey # (Auto) 600 Eos # (Auto) 0 Baso # (Auto) 0 Sodium 133 L Potassium 3.3 L Chloride 91 L Carbon Dioxide 29 BUN 16 Creatinine 0.73 Estimated GFR > 60 BUN/Creatinine Ratio 21.9 Glucose 116 H Lactate Calcium 8.6 Magnesium Total Bilirubin 0.9 AST 64 H ALT 54 H Alkaline Phosphatase 115 D NT-Pro-B Natriuret Pep 390 H Total Protein 7.5 Albumin 3.9 Globulin 3.6 Albumin/Globulin Ratio 1.1 Procalcitonin 0.86 H Nasal Screen MRSA (PCR) SARS-CoV-2 (PCR) Influenza A (RT-PCR) Influenza B (RT-PCR) RSV (PCR) 02/03/22 02/03/22 02/03/22 09:15 09:15 11:30 WBC RBC Hgb Hct MCV MCH MCHC RDW Plt Count Neut % (Auto) Lymph % (Auto) Coffey % (Auto) Eos % (Auto) Baso % (Auto) Neut # (Auto) Lymph # (Auto) Coffey # (Auto) Eos # (Auto) Baso # (Auto) Sodium Potassium Chloride Carbon Dioxide BUN Creatinine Estimated GFR BUN/Creatinine Ratio Glucose Lactate 1.3 Calcium Magnesium 1.9 Total Bilirubin AST ALT Alkaline Phosphatase NT-Pro-B Natriuret Pep Total Protein Albumin Globulin Albumin/Globulin Ratio Procalcitonin Nasal Screen MRSA (PCR) Negative for mrsa SARS-CoV-2 (PCR) Influenza A (RT-PCR) Influenza B (RT-PCR) RSV (PCR) 02/03/22 02/03/22 02/03/22 13:10 21:22 21:22 WBC 4.1 L RBC 4.32 L Hgb 12.2 L Hct 37.4 L MCV 86.7 MCH 28.3 MCHC 32.6 RDW 12.9 Plt Count 196 Neut % (Auto) 67.8 Lymph % (Auto) 15.5 L Coffey % (Auto) 15.4 H Eos % (Auto) 0.8 L Baso % (Auto) 0.5 Neut # (Auto) 2800 Lymph # (Auto) 600 L Coffey # (Auto) 600 Eos # (Auto) 0 Baso # (Auto) 0 Sodium 130 L Potassium 3.7 Chloride 95 L Carbon Dioxide 27 BUN 22 H Creatinine 0.75 Estimated GFR > 60 BUN/Creatinine Ratio 29.3 H Glucose 113 H Lactate Calcium 8.0 L Magnesium 1.9 Total Bilirubin 0.5 AST 59 ALT 49 Alkaline Phosphatase 110 NT-Pro-B Natriuret Pep Total Protein 6.2 L Albumin 3.3 L Globulin 2.9 Albumin/Globulin Ratio 1.1 Procalcitonin 0.73 H Nasal Screen MRSA (PCR) SARS-CoV-2 (PCR) Negative Influenza A (RT-PCR) Influenza B (RT-PCR) RSV (PCR) 02/03/22 02/03/22 02/04/22 21:22 23:00 05:30 WBC RBC Hgb Hct MCV MCH MCHC RDW Plt Count Neut % (Auto) Lymph % (Auto) Coffey % (Auto) Eos % (Auto) Baso % (Auto) Neut # (Auto) Lymph # (Auto) Coffey # (Auto) Eos # (Auto) Baso # (Auto) Sodium Potassium Chloride Carbon Dioxide BUN Creatinine Estimated GFR BUN/Creatinine Ratio Glucose Lactate 1.2 Calcium Magnesium Total Bilirubin AST ALT Alkaline Phosphatase NT-Pro-B Natriuret Pep Total Protein Albumin Globulin Albumin/Globulin Ratio Procalcitonin 0.63 H Nasal Screen MRSA (PCR) SARS-CoV-2 (PCR) Influenza A (RT-PCR) Flu a positive H Influenza B (RT-PCR) Flu b negative RSV (PCR) Negative 02/04/22 02/04/22 02/04/22 05:30 05:30 05:30 WBC 5.3 RBC 4.23 L Hgb 12.2 L Hct 36.3 L MCV 85.8 MCH 28.7 MCHC 33.5 RDW 12.7 Plt Count 213 Neut % (Auto) 73.7 Lymph % (Auto) 13.0 L Coffey % (Auto) 12.2 Eos % (Auto) 0.5 L Baso % (Auto) 0.6 Neut # (Auto) 3900 Lymph # (Auto) 700 L Coffey # (Auto) 600 Eos # (Auto) 0 Baso # (Auto) 0 Sodium 131 L Potassium 4.0 Chloride 97 L Carbon Dioxide 28 BUN 19 Creatinine 0.78 Estimated GFR > 60 BUN/Creatinine Ratio 24.4 H Glucose 108 Lactate 1.2 Calcium 8.0 L Magnesium 1.8 Total Bilirubin 0.6 AST 57 ALT 50 H Alkaline Phosphatase 92 NT-Pro-B Natriuret Pep 98 Total Protein 6.3 Albumin 3.3 L Globulin 3.0 Albumin/Globulin Ratio 1.1 Procalcitonin Nasal Screen MRSA (PCR) SARS-CoV-2 (PCR) Influenza A (RT-PCR) Influenza B (RT-PCR) RSV (PCR) [facility] Medical History Anesthesia 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 Bleeding from ear Congestive heart failure Coronary artery aneurysm Essential hypertension (04/23/16) Gait instability 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 Hypogonadism in male (04/23/16) Pure hypercholesterolemia (07/30/16) Surgical History H/O surgical amputation of finger H/O vasectomy Hx of tonsillectomy Family History Father Heart attack Mother Dementia Sister Cancer Social History household members: spouse and family Smoking Status: Never smoker alcohol intake: former substance use type: does not use Assessment & Plan Post-op Assessment and plan (1) S/P lumbar fusion: Assessment and Plan narrative: Discussed w/ pt that home discharge with ambulance personnel to carry him up stairs into his home may be possible, but he will need to work with PT to ensure he is safe for homegoing with spouse. Otherwise, he will need to go to rehab, which may be more difficult with influenza diagnosis. Will review PT and CM notes from today and hope for clear disposition plan for tomorrow if medically stable. (2) Influenza A: Assessment and Plan narrative: The hospital and the region is out of tamiflu 75 mg capsules; per pharmacy, there are some 30 mg capsules in stock, but availability of these is also questionable. Will start 90 mg q AM and 60 mg q PM and continue as long as possible based on supply or for 5 days, whichever comes first. Appreciate hospitalist help; will follow for culture results, can likely d/c vanco if negative. Postoperative Procedures: Procedures Operation Date: 01/30/22 09:15 Actual Procedure Side Surgeon p L4-5, L5-S1 TLIF w. posterior instrumentation-Robot Debby Headley MD Postoperative day: 5
[2022-02-04] MEDS: CELECOXIB 200 MG CAPSULE PO (09:42)
[2022-02-04] MEDS: predniSONE 20 MG TABLET 40 MG PO (09:43)
[2022-02-04] MEDS: GABAPENTIN 600 MG TABLET PO (09:43)
[2022-02-04] MEDS: POTASSIUM CHLORIDE 20 MEQ TAB 40 MEQ PO (09:43)
[2022-02-04] MEDS: lisinopriL 20 MG TABLET PO (09:43)
[2022-02-04] MEDS: hydroCHLOROthiazide 25 MG TABLET PO (09:44)
[2022-02-04] MEDS: METOPROLOL ER 25 MG TABLET PO (09:44)
[2022-02-04] MEDS: CITALOPRAM 10 MG TABLET 20 MG PO (09:44)
--- NOTE | 2022-02-04 10:28 | OT.IP.TRT ---
Current Diagnoses Influenza due to other identified influenza virus with other respiratory manifestations (01/30/22) Unspecified thoracic, thoracolumbar and lumbosacral intervertebral disc disorder (01/30/22) Arthrodesis status (01/30/22) Surgery Performed Operation Date: 01/30/22 09:15 Actual Procedures p L4-5, L5-S1 TLIF w. posterior instrumentation-Robot - Debby Headley MD Occupational Therapy Treatment Note M2 OT-IP Current Condition Start: 01/31/22 13:26 Freq: Status: Active Protocol: Document 01/31/22 10:15 [facility] (Rec: 01/31/22 13:45 [facility] [id number]) Occupational Therapy Current Condition Current Condition Evaluation Date 01/31/22 Treatment Diagnosis S/p L4-5, L5-S1 TLIF Diagnosis Onset Date 01/30/22 Post Operative Precautions Lumbar Precautions Log Roll,No Twisting,Limit Bending,Lifting Restriction of 10 lbs,Gait Belt above Incisional Area M3 OT- IP Subjective and Pain Start: 01/31/22 13:26 Freq: Status: Active Protocol: Document 02/04/22 10:07 [facility] (Rec: 02/04/22 11:51 [facility] [id number]) OT- Subjective Occupational Therapy Visit Type Type Treatment Note Visit Start Time 10:54 Visit Stop Time 11:20 Total Visit Minutes 26 Occupational Therapy Visit Comments Patient Comments Pt wanting to try to use the bathroom, TMD 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 Patient/Caregiver Goals To get better so able to use his spin bike again at home. OT Pain Assessment Pain When Pain Assessed At Rest Pain Present Pain Present Denied Pain M4 OT- IP ADL's Start: 01/31/22 13:26 Freq: Status: Active Protocol: Document 02/04/22 10:07 [facility] (Rec: 02/04/22 11:51 [facility] [id number]) OT [id number] Comments OT Self-Feeding Comments Not at meal time. OT ADL-Grooming General Evaluation Grooming Ability Independent Areas Needing Assistance Retrieving/Set-up of Grooming Items Comments OT Grooming Comments while seated OT ADL-Oral Care General Eval Oral Care Ability Independent Areas of Assistance Retrieving/Set-Up of Items Comments Oral Care Comments pt needing cues to spit into a cup in order to best follow his back precautions. Having to practice multiple times so pt able to recall to spit into a cup in order to best follow his back precautions. OT ADL-Dressing Comments OT Dressing Comments not performed OT ADL-Toileting Comments OT Toileting Comments Pt attempted to use the bsc on top on the toilet however not having to go at this time. OT ADL-Bathing Comments OT Bathing Comments Not performed. M6 OT- IP Functional Cognition Start: 01/31/22 13:26 Freq: Status: Active Protocol: Document 02/04/22 10:07 [facility] (Rec: 02/04/22 11:51 [facility] [id number]) Cognitive Factors Limiting Selfcare Function Cognitive Ability Level of Alertness Alert Attention Span Ability Capable of Focused Attention, Unable to Sustain Attention Ability to Follow Commands Able to Follow One Step Commands with Increased Time, Able to Follow One Step Commands with Repetition Safety Awareness Decreased Recall of Precautions,Decreased Ability to Apply Precautions, Underestimates Need for Assistance Problem Solving Ability Unable to Identify Errors, Needs Assist to Identify Solutions Cognitive Comments Cognitive Assessment Comments Pt still needing vc for recall all back precautions and how to best incorporate his back precautions during his ADl and mobility needs. M7 OT- IP Mobility and Balance Start: 01/31/22 13:26 Freq: Status: Active Protocol: Document 02/04/22 10:07 [facility] (Rec: 02/04/22 11:51 [facility] [id number]) OT-Transfer Assessment Sit to and From Stand Sit to and from Stand Minimal Assistance,Moderate Assistance Transfers Transfer Ability Minimal Assistance,Moderate Assistance Technique Transfer Destination Chair,Toilet Devices Transfer Assistive Devices Gait Belt,Front Wheeled Walker Comments Mobility Comments Much improved coming to stand and needing MODA from lower surfaces. Pt LAWRENCE with transfers and occasional more assist as pt at times leans to the right and his right knee seems to buckle/bend more. Pt able to straighten his legs up when cued, however, pt admits to prior would walk with his knees bent. OT- Balance Assessment Sitting Balance and Reactions Static Sitting Balance Ability Good Dynamic Sitting Balance Ability Good Standing Balance and Reactions Static Standing Balance Ability Fair Dynamic Standing Balance Ability Fair M8 OT- IP Objective Assessments Start: 01/31/22 13:26 Freq: Status: Active Protocol: Document 01/31/22 10:15 [facility] (Rec: 01/31/22 13:45 [facility] [id number]) OT- Coordination Assessment Comments Coordination Comments Pt has right hand tremors. M9 OT- IP Assessment and Plan Start: 01/31/22 13:26 Freq: Status: Active Protocol: Document 02/04/22 10:07 [facility] (Rec: 02/04/22 11:51 [facility] [id number]) OT Summary Assessment and Plan Potential Rehabilitation Potential Good Analytic Complexity at Evaluation Moderate Summary OT Impairments Strength,Balance,Functional Cognition,Functional Mobility, Grooming,Dressing,Toileting, Bathing,Toilet Transfers, Shower Transfers,Activity Tolerance Progress Towards Goals Progressing Toward Goals,Slow Progress due to Cognition Assessment Summary Pt overall improving with his mobility needs and still needing cues to incorporate his back precautions for his ADL and mobility needs. Pt looking to go to skilled rehab today. Goals Self-Feeding Goal Independent Grooming Goal Independent Dressing Goal Independent Toileting Goal Independent Bathing Goal Standby Assistance Toilet Transfer Goal Independent Shower Transfer Goal Independent Days to Meet Goals 14 Frequency of Treatment Frequency Of Treatment Once a Day Treatment Plan OT Treatment Plan ADL Training,Functional Cognition Training,Functional Mobility,Patient/Family Education,Discharge Planning Discharge Recommendations OT Discharge Recommendations SNF Rehab Transportation Needs at Discharge Wheelchair/Cabulance
--- NOTE | 2022-02-04 10:36 | PM.PN.1 ---
Subjective Subjective Date Patient Seen: 02/04/22 Time Patient Seen: 10:50 Interval history: Patient's flu test came back positive which accounts for his fevers. Will stop abx. Exam Vital Signs (past 8 hours): - 02/04/22 05:20 02/04/22 05:35 02/04/22 06:41 Temperature 99.0 F 98.7 F 101.3 F H Pulse Rate 89 Respiratory Rate 18 Blood Pressure 141/74 H Pulse Oximetry 92 Oxygen Delivery Method 02/04/22 06:42 02/04/22 08:00 02/04/22 09:21 Temperature 101.3 F H 97.9 F Pulse Rate 119 H 109 H Respiratory Rate 24 16 Blood Pressure 131/87 129/92 H Pulse Oximetry 93 91 96 Oxygen Delivery Method Room Air Oxygen Delivery Method Room Air Oxygen Flow Rate 0 Narrative Exam Narrative: GEN: no acute distress HEENT: moist mucous membranes, PERRL NECK: trachea midline, no JVD CV: regular rate and rhythm, no murmurs PULM: clear bilaterally ABD: soft, nontender, nondistended, no organomegaly EXT: warm and well perfused with no edema NEURO: awake, alert, oriented, no focal deficits Objective Labs Result Diagrams: 02/04/22 05:30 02/04/22 05:30 Labs: Laboratory Results - last 24 hr 02/03/22 02/03/22 02/03/22 11:30 13:10 21:22 WBC 4.1 L RBC 4.32 L Hgb 12.2 L Hct 37.4 L MCV 86.7 MCH 28.3 MCHC 32.6 RDW 12.9 Plt Count 196 Neut % (Auto) 67.8 Lymph % (Auto) 15.5 L [place] % (Auto) 15.4 H Eos % (Auto) 0.8 L Baso % (Auto) 0.5 Neut # (Auto) 2800 Lymph # (Auto) 600 L [place] # (Auto) 600 Eos # (Auto) 0 Baso # (Auto) 0 Sodium Potassium Chloride Carbon Dioxide BUN Creatinine Estimated GFR BUN/Creatinine Ratio Glucose Lactate Calcium Magnesium Total Bilirubin AST ALT Alkaline Phosphatase NT-Pro-B Natriuret Pep Total Protein Albumin Globulin Albumin/Globulin Ratio Procalcitonin Nasal Screen MRSA (PCR) Negative for mrsa SARS-CoV-2 (PCR) Negative Influenza A (RT-PCR) Influenza B (RT-PCR) RSV (PCR) 02/03/22 02/03/22 02/03/22 21:22 21:22 23:00 WBC RBC Hgb Hct MCV MCH MCHC RDW Plt Count Neut % (Auto) Lymph % (Auto) [place] % (Auto) Eos % (Auto) Baso % (Auto) Neut # (Auto) Lymph # (Auto) [place] # (Auto) Eos # (Auto) Baso # (Auto) Sodium 130 L Potassium 3.7 Chloride 95 L Carbon Dioxide 27 BUN 22 H Creatinine 0.75 Estimated GFR > 60 BUN/Creatinine Ratio 29.3 H Glucose 113 H Lactate 1.2 Calcium 8.0 L Magnesium 1.9 Total Bilirubin 0.5 AST 59 ALT 49 Alkaline Phosphatase 110 NT-Pro-B Natriuret Pep Total Protein 6.2 L Albumin 3.3 L Globulin 2.9 Albumin/Globulin Ratio 1.1 Procalcitonin 0.73 H Nasal Screen MRSA (PCR) SARS-CoV-2 (PCR) Influenza A (RT-PCR) Flu a positive H Influenza B (RT-PCR) Flu b negative RSV (PCR) Negative 02/04/22 02/04/22 02/04/22 05:30 05:30 05:30 WBC 5.3 RBC 4.23 L Hgb 12.2 L Hct 36.3 L MCV 85.8 MCH 28.7 MCHC 33.5 RDW 12.7 Plt Count 213 Neut % (Auto) 73.7 Lymph % (Auto) 13.0 L [place] % (Auto) 12.2 Eos % (Auto) 0.5 L Baso % (Auto) 0.6 Neut # (Auto) 3900 Lymph # (Auto) 700 L [place] # (Auto) 600 Eos # (Auto) 0 Baso # (Auto) 0 Sodium 131 L Potassium 4.0 Chloride 97 L Carbon Dioxide 28 BUN 19 Creatinine 0.78 Estimated GFR > 60 BUN/Creatinine Ratio 24.4 H Glucose 108 Lactate Calcium 8.0 L Magnesium 1.8 Total Bilirubin 0.6 AST 57 ALT 50 H Alkaline Phosphatase 92 NT-Pro-B Natriuret Pep 98 Total Protein 6.3 Albumin 3.3 L Globulin 3.0 Albumin/Globulin Ratio 1.1 Procalcitonin 0.63 H Nasal Screen MRSA (PCR) SARS-CoV-2 (PCR) Influenza A (RT-PCR) Influenza B (RT-PCR) RSV (PCR) 02/04/22 05:30 WBC RBC Hgb Hct MCV MCH MCHC RDW Plt Count Neut % (Auto) Lymph % (Auto) [place] % (Auto) Eos % (Auto) Baso % (Auto) Neut # (Auto) Lymph # (Auto) [place] # (Auto) Eos # (Auto) Baso # (Auto) Sodium Potassium Chloride Carbon Dioxide BUN Creatinine Estimated GFR BUN/Creatinine Ratio Glucose Lactate 1.2 Calcium Magnesium Total Bilirubin AST ALT Alkaline Phosphatase NT-Pro-B Natriuret Pep Total Protein Albumin Globulin Albumin/Globulin Ratio Procalcitonin Nasal Screen MRSA (PCR) SARS-CoV-2 (PCR) Influenza A (RT-PCR) Influenza B (RT-PCR) RSV (PCR) [facility] Medical History Anesthesia 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 Bleeding from ear Congestive heart failure Coronary artery aneurysm Essential hypertension (04/23/16) Gait instability 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 Hypogonadism in male (04/23/16) Pure hypercholesterolemia (07/30/16) Surgical History H/O surgical amputation of finger H/O vasectomy Hx of tonsillectomy Family History Father Heart attack Mother Dementia Sister Cancer Social History household members: spouse and family Smoking Status: Never smoker alcohol intake: former substance use type: does not use Assessment & Plan Assessment & Plan narrative: # acute influenza - febrile to 102.3, flu positive on PCR - blood and urine cultures negative - stop cefepime and vanc - CXR normal - recommend tamiflu at SNF if available, dosed 75mg BID x5 days # postop lumbar spine surgery on 01/30 - management per ortho # HTN, chronic - continue home metop XL 25mg daily and lisinopril 20mg daily # depression, chronic - continue home celexa Code status is full code. COVID negative. DVT prophylaxis with SCD's. Proxy is Fela. I have reviewed home meds and used all available resources to reconcile the home meds. Medicine will sign off today. Thank you for allowing us to participate in the care of this patient. Should you have any further questions, do not hesitate to speak with us directly or call us. Time Spent With Patient Critical Care time: I spent a total of [] minutes of critical care time on this patient's care today; this time is exclusive of procedural time.
--- NOTE | 2022-02-04 11:18 | PT.IPTN ---
Current Diagnoses Influenza due to other identified influenza virus with other respiratory manifestations (01/30/22) Unspecified thoracic, thoracolumbar and lumbosacral intervertebral disc disorder (01/30/22) Arthrodesis status (01/30/22) Surgery Performed Operation Date: 01/30/22 09:15 Actual Procedures p L4-5, L5-S1 TLIF w. posterior instrumentation-Robot - Debby Headley MD Physical Therapy Treatment Note M2 PT-IP Current Condition Start: 01/31/22 12:45 Freq: NEEDED Status: Active Protocol: Document 02/04/22 13:07 SP (Rec: 02/04/22 13:50 SP [id number]) Physical Therapy Current Condition Current Condition Evaluation Date 01/31/22 Treatment Diagnosis s/p L4-5, L5S1 TLIF; difficulty in walking Onset Date 01/30/22 M3 PT-IP Subjective Start: 01/31/22 12:45 Freq: NEEDED Status: Active Protocol: Document 02/04/22 13:07 SP (Rec: 02/04/22 13:50 SP [id number]) Subjective Physical Therapy Visit Type Type Treatment Note Visit Start Time 10:47 Visit Stop Time 11:18 Total Visit Minutes 31 Notes CoTx with OT with safe mobility and ADLs. Number of PLATE MOUNTER Visits 1 Physical Therapy Visit Comments Patient Comments I am still feeling not clearly thinking. Patient Goals Eventually return home with family but agreeable to going to SNF get stronger before going home. Therapy Pain Assessment Pain When Pain Assessed During Mobility Pain Present Pain Present Denied Pain M4 PT-IP Mobility and Gait Start: 01/31/22 12:45 Freq: NEEDED Status: Active Protocol: Document 02/04/22 13:07 SP (Rec: 02/04/22 13:50 SP [id number]) PT-Transfer Assessment Sit to and From Stand Sit to and from Stand Contact Guard Assistance, Minimal Assistance,Moderate Assistance,1 Person Assistance ,Use of Upper Extremities Equipment Transfer Assistive Device Gait Belt,Front Wheeled Walker Orthotic/Prosthetic Devices or Brace: Yes Transfers Transfer Destination Chair,Toilet Transfer Technique pt ambulate with FWW Transfer Ability Level of Assist Contact Guard Assistance, Minimal Assistance,1 Person Assistance,Use of Upper Extremities Comments Mobility Comments 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 Sit balance EOB Good no UE support. Sit>stand Mod A initially then decreased to CG/ Min A throughout rest tx. SPT bed>chair w/FWW. Min> occasional cues for proper hand placement BUE slow descent/ ascend. Gait to sink 8 ft w/ FWW, ed cues FWW facing full for support, static stand at sink occational LUE support on sink for self stability and upright posturing to maintain spinal precautions, little trunk sways but no LOB. gait to chair w/ FWW 8 ft, Min A for slow descent sit chair. sit<stand CGA improved BUE push from chair arms full stand, gait to toilet 8 ft (OT provided raised commode over toilet w/ arm rests) CGA for step pivot w/ FWW and back up fully, cued for gown mgt, CGA slow sit on toilet use R HR LUE managed gown. Unsuccessful void or BM as pt has hoped. Sit>stand CGA/Min A w/FWW cued gown down self, 1 UE support on FWW. gait to closet 20 ft w /FWW, CGA improved receiprocal stepping, occasional cues for upper trunk tall/left/ pelvis shift right for spinal alignment and mirror front for self feedback wow I can't tell I am not standing straight. Pt returned to chair cGA w/ FWW CGA, OT took over tx. Gait Assessment Gait Gait Assistance Required: Contact Guard Assist,1 Person Assist Distance (Feet) 150 Able to Maintain Weight Bearing Status Yes During Gait Assistive Devices Assistive Device Gait Belt,Front Wheeled Walker Orthotic/Prosthetic Devices or Brace: Yes Gait Deviations General Gait Pattern Antalgic,Decreased Stride Length,Decreased Feet Clearance,Flexed Trunk,Lateral Trunk Lean Factors Limiting Gait Function Factors Limiting Gait Function Decreased Activity Tolerance, Decreased Strength,Difficulty Following Directions,Limited Range of Motion,Poor Balance, Poor Safety Awareness Comments Gait Comments see mobility comments. Stair Climbing Assessment Comments Stair Climbing Comments unable to assess. Has 5 stairs to assess for safet DC home when able. 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 M7 PT-IP Assessment and Plan Start: 01/31/22 12:45 Freq: NEEDED Status: Active Protocol: Document 02/04/22 13:07 SP (Rec: 02/04/22 13:50 SP [id number]) PT Summary Assessment and Plan Potential Rehabilitation Potential Fair Status of Condition at Evaluation Evolving Summary Impairments Pain,ROM,Strength,Balance, Coordination,Sensation,Tone, Cognition,Bed Mobility, Transfers,Gait,Activity Tolerance Progress Towards Goals Progressing Toward Goals,Slow Progress due to Activity Tolerance Assessment Summary Pt Mod>CGA/Min w/ FWW, cues for safety sequencing, postural alignment, recall and maintaining precautions during mobility. Pt does at times self verbalize mobiltiy for safety but states and demontrates decreased memory/ confusion and appreciates outside cuing ed to help solidify. Pt requries SNF for strength and continued safety techniques for increased functional mobililty. Goals Bed Mobility Goal Standby Assistance Transfer Goal Standby Assistance,Front Wheeled Walker Gait Goal Standby Assistance,Front Wheel Walker Gait Distance 150 Other Goals up/down 3 platform steps using FWW CGA Days to Meet Goals 10 Frequency of Treatment Frequency Of Treatment Twice a Day Treatment Plan Physical Therapy Treatment Plan Bed Mobility Training,Transfer Training,Gait Training, Therapeutic Exercise,Balance Retraining,Post Op Education, Discharge Planning,Hot or Cold Pack,Neuromuscular Re-ed, Coordination Retraining,Manual Therapy Other Recommendations and Next Treatment precautions, bed mob, transfer Focus with safety sequencing w/FWW, gait further distance, stair mgt when safe and able. Precautions Lumbar Precautions Log Roll,No Twisting,Limit Bending,Lifting Restriction of 10 lbs,Gait Belt above Incisional Area Recommendations To Nursing Amount of Assist Needed 1 Person Assist Discharge Recommendations PT Discharge Recommendations SNF Rehab Equipment Needed for Home Before FWW if pt goes home Discharge Transportation Needs at Discharge Private Vehicle
--- NOTE | 2022-02-04 11:52 | PC.NURSE ---
I changed his dressing with coversite. old dressing was peeling off. radames were exposed.
--- NOTE | 2022-02-04 12:22 | PM.DS.1 ---
History of Present Illness History of Present Illness Date Patient Seen: 02/04/22 Time Patient Seen: 12:22 Chief complaint: Back pain Narrative: Operative Date/Time/Diagnoses Date of procedure: 01/30/22 Time of procedure: 14:00 Pre-op diagnosis: 1. L4-5, L5-S1 spinal stenosis 2. L4-5, L5-S1 spondylosis with radiculopathy Post-op diagnosis: same Procedure & Clinicians Procedure: 1. L4-5, L5-S1 Postero-lateral and posterior interbody fusion 2. L4-5, L5-S1 interbody cage placement. 3. L4-5, L5-S1 decompressive laminectomy with bilateral facetecomies 4. L4-5, L5-S1 Posterior segmental instrumentation 5. Estill of bone marrow from iliac crest 6. Utilization of microsurgical technique and operating microscope 7. Utilization of robotic assisted navigation Same procedure as scheduled: Yes Indications: Patient has been having chronic back pain and worsening lumbar radiculopathy. Patient failed multiple conservative management with worsening pain weakness and numbness in his lower extremity.? Patient has been having difficulty performing activity of daily living.? After discussing risks benefits of treatment options, patient elected proceed with surgery. Surgeon: Debby Headley Certified Ophthalmic Surgical Assistant: Tristin Zavala Click Yes if Unassisted: No Anesthesia Type: General Operative Notes Closure Type: primary Specimen(s): none sent Prosthetic devices, grafts, tissues, transplants, or devices: GLobus CREO MIS screws, Rise cages Applied: catheter Estimated Blood Loss (mL): 150 Blood products transfused: none Discharge Providers Provider Date of admission: 01/30/22 07:42 Discharge Date: 02/04/22 Primary care physician: Fadi Oconnor MD Consults: 01/30/22 18:35 Consult to Occupational Therapy Evaluate & Treat Comment: Physician Instructions: Evaluate and treat Consult to Physical Therapy Evaluate & Treat Comment: Physician Instructions: Evaluate and Treat Discharge provider: Rica Wesley PA-C Summary Hospital Course Discharge Diagnosis: 1) s/p lumbar fusion 2) influenza A Hospital Course: Mr Orr's hospital course was remarkable for fever an malaise, which slowed his postoperative progress w/ PT. Please see earlier note from today for more details. I received a call from the nursing staff just before noon on POD# 5 stating that pt was ready for d/c to SNF. Exam Vital Signs (past 8 hours): - 02/04/22 05:20 02/04/22 05:35 02/04/22 06:41 Temperature 99.0 F 98.7 F 101.3 F H Pulse Rate 89 Respiratory Rate 18 Blood Pressure 141/74 H Pulse Oximetry 92 Oxygen Delivery Method 02/04/22 06:42 02/04/22 08:00 02/04/22 09:21 Temperature 101.3 F H 97.9 F Pulse Rate 119 H 109 H Respiratory Rate 24 16 Blood Pressure 131/87 129/92 H Pulse Oximetry 93 91 96 Oxygen Delivery Method Room Air Oxygen Delivery Method Room Air Oxygen Flow Rate 0 Objective Labs Result Diagrams: 02/04/22 05:30 02/04/22 05:30 Labs: Laboratory Results - last 24 hr 02/03/22 02/03/22 02/03/22 11:30 13:10 21:22 WBC 4.1 L RBC 4.32 L Hgb 12.2 L Hct 37.4 L MCV 86.7 MCH 28.3 MCHC 32.6 RDW 12.9 Plt Count 196 Neut % (Auto) 67.8 Lymph % (Auto) 15.5 L [place] % (Auto) 15.4 H Eos % (Auto) 0.8 L Baso % (Auto) 0.5 Neut # (Auto) 2800 Lymph # (Auto) 600 L [place] # (Auto) 600 Eos # (Auto) 0 Baso # (Auto) 0 Sodium Potassium Chloride Carbon Dioxide BUN Creatinine Estimated GFR BUN/Creatinine Ratio Glucose Lactate Calcium Magnesium Total Bilirubin AST ALT Alkaline Phosphatase NT-Pro-B Natriuret Pep Total Protein Albumin Globulin Albumin/Globulin Ratio Procalcitonin Nasal Screen MRSA (PCR) Negative for mrsa SARS-CoV-2 (PCR) Negative Influenza A (RT-PCR) Influenza B (RT-PCR) RSV (PCR) 02/03/22 02/03/22 02/03/22 21:22 21:22 23:00 WBC RBC Hgb Hct MCV MCH MCHC RDW Plt Count Neut % (Auto) Lymph % (Auto) [place] % (Auto) Eos % (Auto) Baso % (Auto) Neut # (Auto) Lymph # (Auto) [place] # (Auto) Eos # (Auto) Baso # (Auto) Sodium 130 L Potassium 3.7 Chloride 95 L Carbon Dioxide 27 BUN 22 H Creatinine 0.75 Estimated GFR > 60 BUN/Creatinine Ratio 29.3 H Glucose 113 H Lactate 1.2 Calcium 8.0 L Magnesium 1.9 Total Bilirubin 0.5 AST 59 ALT 49 Alkaline Phosphatase 110 NT-Pro-B Natriuret Pep Total Protein 6.2 L Albumin 3.3 L Globulin 2.9 Albumin/Globulin Ratio 1.1 Procalcitonin 0.73 H Nasal Screen MRSA (PCR) SARS-CoV-2 (PCR) Influenza A (RT-PCR) Flu a positive H Influenza B (RT-PCR) Flu b negative RSV (PCR) Negative 02/04/22 02/04/22 02/04/22 05:30 05:30 05:30 WBC 5.3 RBC 4.23 L Hgb 12.2 L Hct 36.3 L MCV 85.8 MCH 28.7 MCHC 33.5 RDW 12.7 Plt Count 213 Neut % (Auto) 73.7 Lymph % (Auto) 13.0 L [place] % (Auto) 12.2 Eos % (Auto) 0.5 L Baso % (Auto) 0.6 Neut # (Auto) 3900 Lymph # (Auto) 700 L [place] # (Auto) 600 Eos # (Auto) 0 Baso # (Auto) 0 Sodium 131 L Potassium 4.0 Chloride 97 L Carbon Dioxide 28 BUN 19 Creatinine 0.78 Estimated GFR > 60 BUN/Creatinine Ratio 24.4 H Glucose 108 Lactate Calcium 8.0 L Magnesium 1.8 Total Bilirubin 0.6 AST 57 ALT 50 H Alkaline Phosphatase 92 NT-Pro-B Natriuret Pep 98 Total Protein 6.3 Albumin 3.3 L Globulin 3.0 Albumin/Globulin Ratio 1.1 Procalcitonin 0.63 H Nasal Screen MRSA (PCR) SARS-CoV-2 (PCR) Influenza A (RT-PCR) Influenza B (RT-PCR) RSV (PCR) 02/04/22 05:30 WBC RBC Hgb Hct MCV MCH MCHC RDW Plt Count Neut % (Auto) Lymph % (Auto) [place] % (Auto) Eos % (Auto) Baso % (Auto) Neut # (Auto) Lymph # (Auto) [place] # (Auto) Eos # (Auto) Baso # (Auto) Sodium Potassium Chloride Carbon Dioxide BUN Creatinine Estimated GFR BUN/Creatinine Ratio Glucose Lactate 1.2 Calcium Magnesium Total Bilirubin AST ALT Alkaline Phosphatase NT-Pro-B Natriuret Pep Total Protein Albumin Globulin Albumin/Globulin Ratio Procalcitonin Nasal Screen MRSA (PCR) SARS-CoV-2 (PCR) Influenza A (RT-PCR) Influenza B (RT-PCR) RSV (PCR) [facility] Medical History Anesthesia 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 Bleeding from ear Congestive heart failure Coronary artery aneurysm Essential hypertension (04/23/16) Gait instability 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 Hypogonadism in male (04/23/16) Pure hypercholesterolemia (07/30/16) Surgical History H/O surgical amputation of finger H/O vasectomy Hx of tonsillectomy Family History Father Heart attack Mother Dementia Sister Cancer Social History household members: spouse and family Smoking Status: Never smoker alcohol intake: former substance use type: does not use Discharge Assessment & Plan Assessment and Plan Assessment: 1) s/p L4-5, L5-S1 transforaminal lumbar interbody fusion w/ posterolateral instrumentation 2) Influenza A Plan of Treatment: 1) Mobilize with physical therapy, Limit bending, twisting, lifting, Discharge to [facility] facility 2) Continue Tamiflu x 5 days if possible, either 75 mg BID OR 90 mg q AM and 60 mg q PM, depending on medication availability Discharge Plan Discharge Plan Patient Disposition: SNF Transfer to: [facility] Discharge orders & Medications Prescriptions: New acetaminophen 325 mg Tablet 650 mg PO Q6HR Qty: 60 0RF docusate sodium 100 mg Capsule 100 mg PO BID Qty: 10 0RF oxycodone 5 mg Tablet 10 mg PO Q3HR PRN (Reason: Pain, Severe (7-10)) Qty: 60 0RF tramadol 50 mg Tablet 50 mg PO QID PRN (Reason: breakthrough pain, severe) Qty: 60 0RF cyclobenzaprine 10 mg Tablet 10 mg PO BID PRN (Reason: muscle spasm) Qty: 60 0RF gabapentin [Neurontin] 600 mg Tablet 600 mg PO TID Qty: 90 0RF Continued (DME) Syringes 0 .Route .MEDSUPPLY Qty: 1 3RF Dose Instruction: As directed Rx Instructions: As directed testosterone cypionate [Depo-Testosterone] 200 mg/mL oil 200 mg IM Q4W Qty: 1 2RF Label Comments: Pt states he has not used in a couple months metoprolol succinate [Toprol XL] 25 mg tablet extended release 24 hr 25 mg PO QDAY Qty: 90 1RF Rx Instructions: LABS DUE NOV 2021. THANK YOU gabapentin 600 mg tablet 600 mg PO TID Qty: 270 3RF citalopram 20 mg tablet 20 mg PO QDAY Qty: 90 1RF lisinopril-hydrochlorothiazide 20-25 mg tablet 1 tab PO DAILY Qty: 90 1RF trazodone 100 mg tablet 200 mg PO BEDTIME PRN (Reason: insomnia) Qty: 180 1RF (DME) MAX NEEDLES 21GX1 Qty: 50 2RF Dose Instruction: As directed Rx Instructions: USE TO INJECT TESTOSTERONE INTRAMUSCULAR ONCE A WEEK cyclobenzaprine 10 mg tablet 10 mg PO BID PRN (Reason: muscle spasm) Qty: 60 2RF Discontinued celecoxib 200 mg capsule 200 mg PO DAILY acetaminophen [Tylenol Arthritis Pain] 650 mg tablet extended release 1,300 mg PO Q8H PRN (Reason: Pain) Follow up/Referrals: Fadi Oconnor MD [Primary Care Provider] - (Please follow-up with your primary care in regards to cognitive changes and workup for urinary frequency) Debby Headley MD [Physician] - As previously scheduled (10-14 days for postoperative visit) Discharge Health Status Multidrug resistant organism: No MDRO Diet/Activity/Treatments Diet: Diet as Tolerated Activity: Weight-bearing as tolerated, limit bending, twisting, lifting Cold/Heat Therapy: Apply ice to back as needed Other treatments: Dressing/Wound care: -Keep dressing in place until postoperative follow-up office visit. -Okay to shower. Keep wound out of direct water stream. Can use PressNSeal plastic wrap to protect from shower stream. No soaking or submerging until all the scabs fall off (approximately 6 weeks). -Please call the office if dressing becomes wet, soiled, or saturated. Activities: -Limit bending, lifting, twisting x6 weeks. No deep bending (more than 90 degrees) or twisting at the waist. No lifting > 20 pounds. -Walk frequently. -Weight-bearing as tolerated. Use front wheeled walker, and progress to cane when safe. -Continue with home exercises as directed by your physical therapist. -Ice your incision as needed for pain/inflammation/swelling. Protect your skin with a folded pillowcase. -Incentive Spirometer (breathing device from hospital): 5-10xs every hour while awake for the first 1-2 weeks. Follow-up: -Follow-up with your surgeon or PA in the office in 10-14 days after surgery. -Follow-up with your surgeon 6 weeks postoperatively. Call the office if you have chest pain, shortness of breath, significant swelling that will not resolve with elevating, fever over 101?, significantly worsening pain, or are concerned you might need to go to the Emergency Room. [facility]: [phone] Skin/Wound/Dressing Care Report to your healthcare provider any signs of infection, such as:: chills, fever, night sweats, unusual drainage and unusual redness Special Rehabilitation Services Reason for rehabilitation: Post-operative therapy Rehab type: Physical therapy and Occupational therapy Visit Report/Discharge Packet Instructions: DI for Prescription Opioid Use, DI for Transforaminal Lumbar Interbody Fusion Stand Alone Forms: Surgery Discharge Discharge Data Primary Care Provider: Fadi Oconnor
[2022-02-04 14:54] LABS: Vancomycin Trough 7.7 ug/mL (10-20)
== END 2022-02-04 13:12 | DRG 455 ==
PROVIDERS: Nurse Practitioner Family; Physician Assistant; Student in an Organized Health Care Education/Training Program; Admitting Provider Orthopaedic Surgery Orthopaedic Surgery of the Spine; PCP Student in an Organized Health Care Education/Training Program; Referring Provider Student in an Organized Health Care Education/Training Program; Visit Provider Orthopaedic Surgery Orthopaedic Surgery of the Spine
PROC: 0SG00AJ Fusion of Lumbar Vertebral Joint with Interbody Fusion Device, Posterior Approach, Anterior Column, Open Approach (ICD-10-PCS; principal; 2022-01-30 09:15)
DX: M47.27 Other spondylosis with radiculopathy, lumbosacral region (principal); M48.07 Spinal stenosis, lumbosacral region; M47.26 Other spondylosis with radiculopathy, lumbar region; M48.061 Spinal stenosis, lumbar region without neurogenic claudication; I10 Essential (primary) hypertension; F32.A Depression, unspecified; J10.1 Influenza due to other identified influenza virus with other respiratory manifestations; R41.0 Disorientation, unspecified; Z20.822 Contact with and (suspected) exposure to COVID-19; Z23 Encounter for immunization
CPT/HCPCS: 36415; 71045; 71046; 72100; 76000; 80053; 80202; 81001; 82962; 83605; 83735; 83880; 84145; 85014; 85018; 85025; 85027; 87040; 87086; 87502; 87634; 87635; 87797; 90471; 90662; 94760; 97116; 97162; 97166; 97530; 97535; C9803; C1831; C9290; J0171; J0690; J0692; J1170; J2250; J2405; J2704; J3010; J3410

== ENCOUNTER → 2022-06-18 08:04 | Outpatient (CLI) | payer MEDICARE, MEDICAID, SELFPAY ==
[2022-02-04 04:36] VITALS: BMI 26.9
[2022-06-25 08:37] LABS: Percent Free Testosterone 1.82 % (1.50-4.20); Testosterone Free 5.06 ng/dL (5.00-21.00); Testosterone Total 278.1 ng/dL (264.0-916.0)
== END ==
PROVIDERS: PCP Student in an Organized Health Care Education/Training Program; Referring Provider Student in an Organized Health Care Education/Training Program; Visit Provider Student in an Organized Health Care Education/Training Program
DX: E29.1 Testicular hypofunction (principal)
CPT/HCPCS: 36415; 84402; 84403

== ENCOUNTER → 2022-11-05 07:37 | Outpatient (CLI) | payer MEDICARE, MEDICAID, SELFPAY ==
[2022-02-04 04:36] VITALS: BMI 26.9
--- NOTE | 2022-11-05 07:38 | DI.MRI.S_ITS ---
PROCEDURE: MR LUMBAR SPINE WO/W CON INDICATIONS: LUMBAR FUSION AND RIGHT LEG WEAKNESS TECHNIQUE: Noncontrast sagittal T1 spin echo and T2 fast echo, sagittal STIR, and T2 fast spin echo through the lumbar spine. In cases with scoliosis, additional coronal T2 fast spin echo may be performed. COMPARISON: None. FINDINGS: Image quality: Excellent. Alignment and Curvature: There is normal bony alignment. Bone Marrow: L4-5 and L5-S1 interbody fusion with posterior jesse and screw instrumentation. Spinal Cord: Conus medullaris terminates at the L1 level. Visualized cord demonstrates normal signal and size. Paraspinous Soft Tissues: Left renal simple cyst T12-L1: Disc space narrowing and circumferential disc bulge. No central stenosis. Moderate bilateral foraminal stenosis L1-L2: Disc height is preserved. Circumferential disc bulge and hypertrophic facet joints. Mild central stenosis. No foraminal stenosis L2-L3: Disc height is preserved. Circumferential disc bulge with hypertrophic facet joints. Mild central stenosis. Moderate bilateral foraminal stenosis L3-L4: Disc space narrowing with circumferential disc bulge and hypertrophic facet joints effaces the left lateral recess results in moderate central stenosis. Severe left and mild bilateral foraminal stenosis L4-L5: Interbody fusion with posterior instrumentation. No central stenosis. Moderate bilateral foraminal stenosis greater on the left L5-S1: Interbody fusion with posterior instrumentation. No central stenosis. Moderate right and no left foraminal stenosis IMPRESSION: Multilevel degenerative disc disease and arthropathy results in varying degrees of central and foraminal stenosis including moderate central and severe left foraminal stenosis L3-4 L4-5 and L5-S1 instrumented interbody fusion Approved by: Faraz Zazueta M.D. on 11/05/2022 at 17:19
== END ==
PROVIDERS: Family Provider Pediatrics; PCP Pediatrics; Referring Provider Pediatrics; Visit Provider Pediatrics
DX: M47.816 Spondylosis without myelopathy or radiculopathy, lumbar region (principal); M51.36 Other intervertebral disc degeneration, lumbar region; M48.07 Spinal stenosis, lumbosacral region; M48.061 Spinal stenosis, lumbar region without neurogenic claudication; R29.898 Other symptoms and signs involving the musculoskeletal system; Z98.1 Arthrodesis status
CPT/HCPCS: 72158

== ENCOUNTER 2023-02-20 13:00 | Outpatient (RCR) | payer MEDICARE, MEDICAID, SELFPAY ==
[2022-02-04 04:36] VITALS: BMI 26.9
--- NOTE | 2022-11-20 13:52 | PT.OPPOC ---
Physical, Occupational & Speech Therapy At [facility] Current Diagnoses Other symptoms and signs involving the musculoskeletal system (11/20/22) Arthrodesis status (11/20/22) Visit Care Team Role Provider Type Ronald Felipe MD Attending Provider Physician Family Provider Primary Care Provider Referring Provider Specialty: Internal Medicine Pediatrics Address: [address] [place] [address], [facility] Email: [email or web address] Plan Of Care PT-OP-T Assessment and Plan Start: 11/20/22 13:51 Freq: Status: Active Protocol: Document 11/20/22 13:52 AM (Rec: 11/20/22 16:37 AM [id number]) Physical Therapy Assessment Rehab Potential Rehabilitation Potential Fair Evaluation Complexity Number of Personal Factors/Comorbidities 3 or More Number of Body Systems Impaired 3 Clinical Presentation at Evaluation Stable Impairments Impairments Activity Tolerance,Balance, Functional Activities, Functional Mobility,Gait,Pain, Posture,ROM,Sensation,Soft Tissue Mobility,Strength, Transfers Goals HEP Impairment Pt not currently participating in strengthening program. Pt is riding recumbent bike. Telegraph Operator Goal (LTG) Pt independent with HEP LTG Duration 01/15/23 Standing Impairment Pt able to stand for 5 min before need to sit secondary to pain. Short Term Goal (STG) Pt able to stand for 10 min before need to sit secondary to pain. STG Duration 12/18/22 Telegraph Operator Goal (LTG) Pt able to stand for 20 min before need to sit secondary to pain. LTG Duration 01/15/23 Pain Impairment Pt reports pain at 10/10 at worst. Short Term Goal (STG) Pt with reported pain at 7/10 at worst. STG Duration 12/18/22 Telegraph Operator Goal (LTG) Pt with reported pain at 4/10 at worst. LTG Duration 01/15/23 Strength Impairment Pt with LE strength grossly at 3+/5. Short Term Goal (STG) Pt with LE strength grossly at 4-/5. STG Duration 12/18/22 Telegraph Operator Goal (LTG) Pt with LE grossly at 4/5. LTG Duration 01/15/23 JOSIAH Impairment Pt with Oswestry score of 68 Short Term Goal (STG) Pt with JOSIAH score of 55 STG Duration 12/18/22 Telegraph Operator Goal (LTG) Pt with JOSIAH Score of 45 LTG Duration 01/15/23 LEFS Impairment Pt with LEFS score of 10/80. Short Term Goal (STG) Pt with LEFS score of 30/80 STG Duration 12/18/22 Custodial Goal (LTG) Pt with LEFS score of 45/80. LTG Duration 01/15/23 Assessment Summary Assessment Jamal Orr presents to PT to address low back/pelvic pain and weakness that has worsened since lumbar fusion in Jan 2022. Pt with strength impairments at LE and core. Pt challenged with transfers from sit<-> supine secondary to pain and weakness. Pt challenged with lower abdominal activation, which improved with cues for breath. Pt with reported frequent falls, with one occuring today before IE. Pt with balance impairments. Pt would benefit from continued PT to improve trunk/LE strength and balance to decrease fall risk and pain for improved function/safety. Physical Therapy Plan Frequency and Duration Frequency of Treatment 2x/Week Duration of treatment (weeks) 8 Plan of Care Start Date 11/20/22 Plan of Care End Date 01/15/23 Therapeutic Interventions Therapeutic Interventions Balance Training,Coordination Training,Gait Training,Home Exercise Program,Joint Mobilizations,Manual Therapy, Neuromuscular Re-education, Patient/Caregiver Education, Self-Care/Home Management,Soft Tissue Mobilization, Therapeutic Activities, Therapeutic Exercises Modalities Cold Pack/Ice Massage,Electric Stimulation,Hot Packs, Ultrasound Next Visit Focus/Plan Next Note Type Treatment Note Next Visit Plan Progress strength, endurance and mobility as tolerated, work on balance Plan of Care Dates Plan of Care Start Date 11/20/22 Plan of Care End Date 01/15/23 Electronically Signed by: Susie Espinal, PT 11/20/22 [id number] If you are in agreement with this Plan of Care, please return a signed and dated copy. I have reviewed this Plan of Care and certify that the skilled therapy services above are required to meet the patient?s needs. Physician Signature Date Printed Name and Credentials Clinical Instructor Signature Printed Name and Credentials
--- NOTE | 2022-11-20 13:52 | PT.OIE ---
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 Hypogonadism in male (04/23/16) Pure hypercholesterolemia (07/30/16) Past Surgical History (Last Reviewed 02/02/22 @ 10:15 by Tristin Zavala PA-C) H/O surgical amputation of finger H/O vasectomy Hx of tonsillectomy Visit Care Team Role Provider Type Ronald Felipe MD Attending Provider Physician Family Provider Primary Care Provider Referring Provider Specialty: Internal Medicine Pediatrics Address: [address] [place] [address], [facility] Email: [email or web address] Physical Therapy Initial Evaluation PT-OP-A Visit Information Start: 11/20/22 13:51 Freq: Status: Active Protocol: Document 11/20/22 13:52 AM (Rec: 11/20/22 16:37 AM [id number]) Out-Patient Physical Therapy Visit Information Visit Information Visit Type Initial Evaluation Visit Start Time 14:20 Visit Stop Time 15:10 Total Visit Minutes 50 Visit Number 1 Number of PILLOW FILLER Visits 0 Evaluation Information Evaluation Date 11/20/22 PT-OP-B Current Condition Start: 11/20/22 13:51 Freq: Status: Active Protocol: Document 11/20/22 13:52 AM (Rec: 11/20/22 16:37 AM [id number]) Current Condition History of Current Condition Onset Date Chronic LBP, fusion in Nov Current Complaints low back pain, weakness. History of Current Condition Pt had lumbar fusion L4-5-S1 on January 30, 2022. Pt reports that he continues to have a lot of pain. Pt reports that he feels that he healed up skilled nursing. Pt has appt with surgeon tomorrow. Pt reports symptoms are intermittent. Pt is primarily at home walking with walking sticks. Pt only leaves house for doctors appointments. Pt reports that he has had falls recently. Pt reports that he cannot build strength. Pt reports low back, tailbone and hip pain. Pt uses FWW when ambulating outside of house. Pt reports that he always feels better if he sits down. Pt reports 3 falls in the last month. Pt reports that he has been riding recumbent bike for 30 min with goal to do this 6x/day. Prior Treatments and Tests Pt had MRI. Prior Functional Status Baseline Function- ADL's Independent Baseline Function- Mobility Independent Current Functional Impairments (Reported) Functional Limitations- ADL's Pt has help with ADL's. Pt able to wash and dress himself . He has a bench in the shower . Pt reports that he has help with cooking/cleaning tasks. Pt is retired. Functional Limitations- Mobility/Gait Pt reports that he is able to stand for 5 min or less before need to sit down. Pt only ambulates to the bathroom and back. PT-OP-C Subjective Start: 11/20/22 13:51 Freq: Status: Active Protocol: Document 11/20/22 13:52 AM (Rec: 11/20/22 16:37 AM [id number]) Patient Questionnaires Lower Extremity Functional Scale LEFS Score 10 LEFS Impairment 80 to 99% Impaired (Score 1-16 ) OP-PT Pain Assessment Location lower back Pain Location Details tailbone and hips, L worse than R Intensity 3 Scale Used Numeric (0 - 10) Description Sharp,Shooting,Stabbing Description- Other 9-10/10 Frequency Constant Radiating Location occasional L foot symptoms, bilateral hips Pain Aggravating Factors Changing Position,ADL's, Activity,Exercise,Standing, Walking,Stair Climbing,Bending ,Lifting Pain Alleviating Factors Medication,Sitting Other Pain Alleviating Factors Pt reports that he has been riding his recumbent bike. PT-OP-D Balance Start: 11/20/22 13:51 Freq: Status: Active Protocol: Document 11/20/22 13:52 AM (Rec: 11/20/22 16:37 AM [id number]) Balance Tests Single Limb Standing Single Limb- Right unable to lift LE Single Limb- Left unable to lift LE PT-OP-E Functional Tests Start: 11/20/22 13:51 Freq: Status: Active Protocol: Document 11/20/22 13:52 AM (Rec: 11/20/22 16:37 AM [id number]) Functional Tests 30 Second Sit to Stand Test Score 0 Comments Unable to do without use of UE PT-OP-G Mobility & Gait Start: 11/20/22 13:51 Freq: Status: Active Protocol: Document 11/20/22 13:52 AM (Rec: 11/20/22 16:37 AM [id number]) OP Mobility Evaluation Bed Mobility Supine to and from Sit Min-Mod A with transfer from sit-supine OP Gait Assessment Gait Gait Assistance Required: Independent,Standby Assistance Assistive Devices Assistive Device None,Front Wheeled Walker Gait Deviations General Gait Pattern Antalgic,Flexed Trunk Factors Limiting Gait Function Factors Limiting Gait Function Decreased Activity Tolerance, Decreased Strength,Pain,Poor Balance PT-OP-J Posture/Palpation/Skin Start: 11/20/22 13:51 Freq: Status: Active Protocol: Document 11/20/22 13:52 AM (Rec: 11/20/22 16:37 AM [id number]) Posture Evaluation Position Standing L-Spine Posture Flattened Palpation Assessment Location Low back Palpation Location lumbar paraspinals Palpation Findings Tenderness PT-OP-M Strength Start: 11/20/22 13:51 Freq: Status: Active Protocol: Document 11/20/22 13:52 AM (Rec: 11/20/22 16:37 AM [id number]) Hip Strength Hip Manual Muscle Testing Right Flexion (L2) 3+ Fair+ Extension (S1) 3+ Fair+ Abduction 3 Fair Adduction 4- Good- External Rotation 3+ Fair+ Internal Rotation 3+ Fair+ Left Flexion (L2) 3+ Fair+ Extension (S1) 3+ Fair+ Abduction 3 Fair Adduction 4- Good- External Rotation 3+ Fair+ Internal Rotation 3+ Fair+ Knee Strength Knee Manual Muscle Testing Right Flexion (S2) 4- Good- Extension (L3) 4- Good- Left Flexion (S2) 4- Good- Extension (L3) 4- Good- PT-OP-Q Treatments Start: 11/20/22 13:51 Freq: Status: Active Protocol: Document 11/20/22 13:52 AM (Rec: 11/20/22 16:37 AM [id number]) Therapeutic Exercises Supine Exercises SKTC Supine Exercise Name SKTC Side bilateral Reps/Minutes x20 sec BKFO Supine Exercise Name BKFO Side bilateral Reps/Minutes x5 Transverse abdominis iso Reps/Minutes 5x5 sec PT-OP-T Assessment and Plan Start: 11/20/22 13:51 Freq: Status: Active Protocol: Document 11/20/22 13:52 AM (Rec: 11/20/22 16:37 AM [id number]) Physical Therapy Assessment Rehab Potential Rehabilitation Potential Fair Evaluation Complexity Number of Personal Factors/Comorbidities 3 or More Number of Body Systems Impaired 3 Clinical Presentation at Evaluation Stable Impairments Impairments Activity Tolerance,Balance, Functional Activities, Functional Mobility,Gait,Pain, Posture,ROM,Sensation,Soft Tissue Mobility,Strength, Transfers Goals HEP Impairment Pt not currently participating in strengthening program. Pt is riding recumbent bike. Alf Goal (LTG) Pt independent with HEP LTG Duration 01/15/23 Standing Impairment Pt able to stand for 5 min before need to sit secondary to pain. Short Term Goal (STG) Pt able to stand for 10 min before need to sit secondary to pain. STG Duration 12/18/22 Alf Goal (LTG) Pt able to stand for 20 min before need to sit secondary to pain. LTG Duration 01/15/23 Pain Impairment Pt reports pain at 10/10 at worst. Short Term Goal (STG) Pt with reported pain at 7/10 at worst. STG Duration 12/18/22 Drying Rack Changer Goal (LTG) Pt with reported pain at 4/10 at worst. LTG Duration 01/15/23 Strength Impairment Pt with LE strength grossly at 3+/5. Short Term Goal (STG) Pt with LE strength grossly at 4-/5. STG Duration 12/18/22 Drying Rack Changer Goal (LTG) Pt with LE grossly at 4/5. LTG Duration 01/15/23 JOSIAH Impairment Pt with Oswestry score of 68 Short Term Goal (STG) Pt with JOSIAH score of 55 STG Duration 12/18/22 Alf Goal (LTG) Pt with JOSIAH Score of 45 LTG Duration 01/15/23 LEFS Impairment Pt with LEFS score of 10/80. Short Term Goal (STG) Pt with LEFS score of 30/80 STG Duration 12/18/22 Drying Rack Changer Goal (LTG) Pt with LEFS score of 45/80. LTG Duration 01/15/23 Assessment Summary Assessment Jamal Orr presents to PT to address low back/pelvic pain and weakness that has worsened since lumbar fusion in Jan 2022. Pt with strength impairments at LE and core. Pt challenged with transfers from sit<-> supine secondary to pain and weakness. Pt challenged with lower abdominal activation, which improved with cues for breath. Pt with reported frequent falls, with one occuring today before IE. Pt with balance impairments. Pt would benefit from continued PT to improve trunk/LE strength and balance to decrease fall risk and pain for improved function/safety. Physical Therapy Plan Frequency and Duration Frequency of Treatment 2x/Week Duration of treatment (weeks) 8 Plan of Care Start Date 11/20/22 Plan of Care End Date 01/15/23 Therapeutic Interventions Therapeutic Interventions Balance Training,Coordination Training,Gait Training,Home Exercise Program,Joint Mobilizations,Manual Therapy, Neuromuscular Re-education, Patient/Caregiver Education, Self-Care/Home Management,Soft Tissue Mobilization, Therapeutic Activities, Therapeutic Exercises Modalities Cold Pack/Ice Massage,Electric Stimulation,Hot Packs, Ultrasound Next Visit Focus/Plan Next Note Type Treatment Note Next Visit Plan Progress strength, endurance and mobility as tolerated, work on balance
--- NOTE | 2022-11-26 12:20 | PT.OTN ---
Current Diagnoses Other symptoms and signs involving the musculoskeletal system (11/26/22) Arthrodesis status (11/26/22) Physical Therapy Treatment Note PT-OP-A Visit Information Start: 11/20/22 13:51 Freq: Status: Active Protocol: Document 11/26/22 12:20 AM (Rec: 11/26/22 13:04 AM [id number]) Out-Patient Physical Therapy Visit Information Visit Information Visit Type Treatment Note Visit Start Time 12:20 Visit Stop Time 12:59 Total Visit Minutes 39 Visit Number 2 Precautions Precautions Fall risk, lumbar fusion PT-OP-B Current Condition Start: 11/20/22 13:51 Freq: Status: Active Protocol: Document 11/26/22 12:20 AM (Rec: 11/26/22 13:04 AM [id number]) Current Condition History of Current Condition Onset Date Chronic LBP, fusion in Nov Current Complaints low back pain, weakness. History of Current Condition Pt had lumbar fusion L4-5-S1 on January 30, 2022. Pt reports that he continues to have a lot of pain. Pt reports that he feels that he healed up correction. Pt has appt with surgeon tomorrow. Pt reports symptoms are intermittent. Pt is primarily at home walking with walking sticks. Pt only leaves house for doctors appointments. Pt reports that he has had falls recently. Pt reports that he cannot build strength. Pt reports low back, tailbone and hip pain. Pt uses FWW when ambulating outside of house. Pt reports that he always feels better if he sits down. Pt reports 3 falls in the last month. Pt reports that he has been riding recumbent bike for 30 min with goal to do this 6x/day. Prior Treatments and Tests Pt had MRI. PT-OP-C Subjective Start: 11/20/22 13:51 Freq: Status: Active Protocol: Document 11/26/22 12:20 AM (Rec: 11/26/22 13:04 AM [id number]) OP-PT Subjective Patient Comments Patient Comments Pt reports that his tailbone is sore from activity from yesterday. PT-OP-D Balance Start: 11/20/22 13:51 Freq: Status: Active Protocol: Document 11/20/22 13:52 AM (Rec: 11/20/22 16:37 AM [id number]) Balance Tests Single Limb Standing Single Limb- Right unable to lift LE Single Limb- Left unable to lift LE PT-OP-E Functional Tests Start: 11/20/22 13:51 Freq: Status: Active Protocol: Document 11/20/22 13:52 AM (Rec: 11/20/22 16:37 AM [id number]) Functional Tests 30 Second Sit to Stand Test Score 0 Comments Unable to do without use of UE PT-OP-G Mobility & Gait Start: 11/20/22 13:51 Freq: Status: Active Protocol: Document 11/20/22 13:52 AM (Rec: 11/20/22 16:37 AM [id number]) OP Mobility Evaluation Bed Mobility Supine to and from Sit Min-Mod A with transfer from sit-supine OP Gait Assessment Gait Gait Assistance Required: Independent,Standby Assistance Assistive Devices Assistive Device None,Front Wheeled Walker Gait Deviations General Gait Pattern Antalgic,Flexed Trunk Factors Limiting Gait Function Factors Limiting Gait Function Decreased Activity Tolerance, Decreased Strength,Pain,Poor Balance PT-OP-J Posture/Palpation/Skin Start: 11/20/22 13:51 Freq: Status: Active Protocol: Document 11/20/22 13:52 AM (Rec: 11/20/22 16:37 AM [id number]) Posture Evaluation Position Standing L-Spine Posture Flattened Palpation Assessment Location Low back Palpation Location lumbar paraspinals Palpation Findings Tenderness PT-OP-M Strength Start: 11/20/22 13:51 Freq: Status: Active Protocol: Document 11/20/22 13:52 AM (Rec: 11/20/22 16:37 AM [id number]) Hip Strength Hip Manual Muscle Testing Right Flexion (L2) 3+ Fair+ Extension (S1) 3+ Fair+ Abduction 3 Fair Adduction 4- Good- External Rotation 3+ Fair+ Internal Rotation 3+ Fair+ Left Flexion (L2) 3+ Fair+ Extension (S1) 3+ Fair+ Abduction 3 Fair Adduction 4- Good- External Rotation 3+ Fair+ Internal Rotation 3+ Fair+ Knee Strength Knee Manual Muscle Testing Right Flexion (S2) 4- Good- Extension (L3) 4- Good- Left Flexion (S2) 4- Good- Extension (L3) 4- Good- PT-OP-Q Treatments Start: 11/20/22 13:51 Freq: Status: Active Protocol: Document 11/26/22 12:20 AM (Rec: 11/26/22 13:04 AM [id number]) Cardio Equipment Recumbent Stepper (Sci-Fit) Duration (Minutes) 5 Resistance 2.5 Seat Position 14 Therapeutic Exercises Supine Exercises Hip adduction iso Supine Exercise Name Hip adduction iso Side bilateral Equipment Used blue ball Reps/Minutes 10x5 sec Comments cues for core SKTC Supine Exercise Name SKTC Side bilateral Reps/Minutes x20 sec BKFO Supine Exercise Name BKFO Side bilateral Reps/Minutes x10 Standing Exercises Hip abduction Standing Exercise Name Standing hip abduction Side bilateral Equipment Used railing on treadmill Reps/Minutes x10 Comments cues for posture Chair squat Standing Exercise Name Chair squat Equipment Used At hi-low table Reps/Minutes x5 Comments use of hands on FWW Standing march Standing Exercise Name Standing march Side bilateral Equipment Used railing on treadmill Reps/Minutes x10 Calf raises Standing Exercise Name Calf raises Side bilateral Equipment Used railling on treadmill Reps/Minutes x10 Shoulder extension Standing Exercise Name Shoulder extension Resistance GTB Reps/Minutes x10 Comments cues for core Row Standing Exercise Name Standing row Resistance GTB Reps/Minutes x10 Comments cues for core PT-OP-T Assessment and Plan Start: 11/20/22 13:51 Freq: Status: Active Protocol: Document 11/26/22 12:20 AM (Rec: 11/26/22 13:04 AM [id number]) Physical Therapy Assessment Impairments Impairments Activity Tolerance,Balance, Functional Activities, Functional Mobility,Gait,Pain, Posture,ROM,Sensation,Soft Tissue Mobility,Strength, Transfers Goals HEP Impairment Pt not currently participating in strengthening program. Pt is riding recumbent bike. Web Solutions Architect Goal (LTG) Pt independent with HEP LTG Duration 01/15/23 Standing Impairment Pt able to stand for 5 min before need to sit secondary to pain. Short Term Goal (STG) Pt able to stand for 10 min before need to sit secondary to pain. STG Duration 12/18/22 Web Solutions Architect Goal (LTG) Pt able to stand for 20 min before need to sit secondary to pain. LTG Duration 01/15/23 Pain Impairment Pt reports pain at 10/10 at worst. Short Term Goal (STG) Pt with reported pain at 7/10 at worst. STG Duration 12/18/22 Web Solutions Architect Goal (LTG) Pt with reported pain at 4/10 at worst. LTG Duration 01/15/23 Strength Impairment Pt with LE strength grossly at 3+/5. Short Term Goal (STG) Pt with LE strength grossly at 4-/5. STG Duration 12/18/22 Intermediate Goal (LTG) Pt with LE grossly at 4/5. LTG Duration 01/15/23 JOSIAH Impairment Pt with Oswestry score of 68 Short Term Goal (STG) Pt with JOSIAH score of 55 STG Duration 12/18/22 Intermediate Goal (LTG) Pt with JOSIAH Score of 45 LTG Duration 01/15/23 LEFS Impairment Pt with LEFS score of 10/80. Short Term Goal (STG) Pt with LEFS score of 30/80 STG Duration 12/18/22 Web Solutions Architect Goal (LTG) Pt with LEFS score of 45/80. LTG Duration 01/15/23 Assessment Summary Assessment Pt with reported decrease in symptoms during tx session today. Pt demonstrates endurance deficits and required rest breaks following each set of exercises today. Pt with improved log roll from supine to sit, though required Mod A. Pt will retun to PT later this week to continue to progress postural and LE strength to improve tolerance to functional activites. Physical Therapy Plan Frequency and Duration Frequency of Treatment 2x/Week Duration of treatment (weeks) 8 Plan of Care Start Date 11/20/22 Plan of Care End Date 01/15/23 Therapeutic Interventions Therapeutic Interventions Balance Training,Coordination Training,Gait Training,Home Exercise Program,Joint Mobilizations,Manual Therapy, Neuromuscular Re-education, Patient/Caregiver Education, Self-Care/Home Management,Soft Tissue Mobilization, Therapeutic Activities, Therapeutic Exercises Modalities Cold Pack/Ice Massage,Electric Stimulation,Hot Packs, Ultrasound Next Visit Focus/Plan Next Note Type Treatment Note Next Visit Plan Progress strength, endurance and mobility as tolerated, work on balance
--- NOTE | 2022-11-28 12:15 | PT.OTN ---
Current Diagnoses Other symptoms and signs involving the musculoskeletal system (11/28/22) Arthrodesis status (11/28/22) Physical Therapy Treatment Note PT-OP-A Visit Information Start: 11/20/22 13:51 Freq: Status: Active Protocol: Document 11/28/22 12:15 AM (Rec: 11/28/22 13:39 AM [id number]) Out-Patient Physical Therapy Visit Information Visit Information Visit Type Treatment Note Visit Start Time 12:15 Visit Stop Time 13:05 Total Visit Minutes 50 Visit Number 3 Number of VISITOR SERVICES INFORMATION ASSISTANT Visits 0 Precautions Precautions fall risk, lumbar fusion PT-OP-B Current Condition Start: 11/20/22 13:51 Freq: Status: Active Protocol: Document 11/28/22 12:15 AM (Rec: 11/28/22 13:39 AM [id number]) Current Condition History of Current Condition Onset Date Chronic LBP, fusion in Nov Current Complaints low back pain, weakness. History of Current Condition Pt had lumbar fusion L4-5-S1 on January 30, 2022. Pt reports that he continues to have a lot of pain. Pt reports that he feels that he healed up [facility] living. Pt has appt with surgeon tomorrow. Pt reports symptoms are intermittent. Pt is primarily at home walking with walking sticks. Pt only leaves house for doctors appointments. Pt reports that he has had falls recently. Pt reports that he cannot build strength. Pt reports low back, tailbone and hip pain. Pt uses FWW when ambulating outside of house. Pt reports that he always feels better if he sits down. Pt reports 3 falls in the last month. Pt reports that he has been riding recumbent bike for 30 min with goal to do this 6x/day. Prior Treatments and Tests Pt had MRI. PT-OP-C Subjective Start: 11/20/22 13:51 Freq: Status: Active Protocol: Document 11/28/22 12:15 AM (Rec: 11/28/22 13:39 AM [id number]) OP-PT Subjective Patient Comments Patient Comments Pt denies soreness after last session. Pt reports that he felt more energized following session and is excited to be working on strength. Pt reports that he somtimes walks in house without AD. PT-OP-D Balance Start: 11/20/22 13:51 Freq: Status: Active Protocol: Document 11/20/22 13:52 AM (Rec: 11/20/22 16:37 AM [id number]) Balance Tests Single Limb Standing Single Limb- Right unable to lift LE Single Limb- Left unable to lift LE PT-OP-E Functional Tests Start: 11/20/22 13:51 Freq: Status: Active Protocol: Document 11/20/22 13:52 AM (Rec: 11/20/22 16:37 AM [id number]) Functional Tests 30 Second Sit to Stand Test Score 0 Comments Unable to do without use of UE PT-OP-G Mobility & Gait Start: 11/20/22 13:51 Freq: Status: Active Protocol: Document 11/20/22 13:52 AM (Rec: 11/20/22 16:37 AM [id number]) OP Mobility Evaluation Bed Mobility Supine to and from Sit Min-Mod A with transfer from sit-supine OP Gait Assessment Gait Gait Assistance Required: Independent,Standby Assistance Assistive Devices Assistive Device None,Front Wheeled Walker Gait Deviations General Gait Pattern Antalgic,Flexed Trunk Factors Limiting Gait Function Factors Limiting Gait Function Decreased Activity Tolerance, Decreased Strength,Pain,Poor Balance PT-OP-J Posture/Palpation/Skin Start: 11/20/22 13:51 Freq: Status: Active Protocol: Document 11/20/22 13:52 AM (Rec: 11/20/22 16:37 AM [id number]) Posture Evaluation Position Standing L-Spine Posture Flattened Palpation Assessment Location Low back Palpation Location lumbar paraspinals Palpation Findings Tenderness PT-OP-M Strength Start: 11/20/22 13:51 Freq: Status: Active Protocol: Document 11/20/22 13:52 AM (Rec: 11/20/22 16:37 AM [id number]) Hip Strength Hip Manual Muscle Testing Right Flexion (L2) 3+ Fair+ Extension (S1) 3+ Fair+ Abduction 3 Fair Adduction 4- Good- External Rotation 3+ Fair+ Internal Rotation 3+ Fair+ Left Flexion (L2) 3+ Fair+ Extension (S1) 3+ Fair+ Abduction 3 Fair Adduction 4- Good- External Rotation 3+ Fair+ Internal Rotation 3+ Fair+ Knee Strength Knee Manual Muscle Testing Right Flexion (S2) 4- Good- Extension (L3) 4- Good- Left Flexion (S2) 4- Good- Extension (L3) 4- Good- PT-OP-Q Treatments Start: 11/20/22 13:51 Freq: Status: Active Protocol: Document 11/28/22 12:15 AM (Rec: 11/28/22 13:39 AM [id number]) Cardio Equipment Recumbent Stepper (Sci-Fit) Duration (Minutes) 5 Resistance 2.5 Seat Position 14 Therapeutic Exercises Supine Exercises Hooklying marching Supine Exercise Name Hookyling march Side bilateral Reps/Minutes 2x10 Comments cues for abdominals Lower abdominal cane pull down Supine Exercise Name Dowel with band held by therapist at head of bed Resistance GTB-BTB Equipment Used dowel BTB Reps/Minutes 2x10 Comments cues for lower abdominals Hip adduction iso Supine Exercise Name Hip adduction iso Side bilateral Equipment Used blue ball Reps/Minutes 10x5 sec Comments cues for core SKTC Supine Exercise Name SKTC Side bilateral Reps/Minutes 2x20 sec BKFO Supine Exercise Name BKFO Side bilateral Reps/Minutes 2x10 Standing Exercises Side step Standing Exercise Name Side step Equipment Used in // bars Hip abduction Standing Exercise Name Standing hip abduction Side bilateral Equipment Used // bars Reps/Minutes x10 Comments cues for posture Chair squat Standing Exercise Name Chair squat Equipment Used At hi-low table, 23.5 inches Reps/Minutes 2x5 Comments No use of hands Calf raises Standing Exercise Name Calf raises Side bilateral Equipment Used // bars Reps/Minutes x10 Neuro Re-Education Treatment Balance Activities Semi tandem Details Semi-tandem stance Surface level Equipment // bars, gait belt Reps/Duration 2x30 sec NBOS Details NBOS Equipment gait belt, // bars Comments head turns, EC PT-OP-T Assessment and Plan Start: 11/20/22 13:51 Freq: Status: Active Protocol: Document 11/28/22 12:15 AM (Rec: 11/28/22 13:39 AM [id number]) Physical Therapy Assessment Goals HEP Impairment Pt not currently participating in strengthening program. Pt is riding recumbent bike. Probation Agent Goal (LTG) Pt independent with HEP LTG Duration 01/15/23 Standing Impairment Pt able to stand for 5 min before need to sit secondary to pain. Short Term Goal (STG) Pt able to stand for 10 min before need to sit secondary to pain. STG Duration 12/18/22 Probation Agent Goal (LTG) Pt able to stand for 20 min before need to sit secondary to pain. LTG Duration 01/15/23 Pain Impairment Pt reports pain at 10/10 at worst. Short Term Goal (STG) Pt with reported pain at 7/10 at worst. STG Duration 12/18/22 Probation Agent Goal (LTG) Pt with reported pain at 4/10 at worst. LTG Duration 01/15/23 Strength Impairment Pt with LE strength grossly at 3+/5. Short Term Goal (STG) Pt with LE strength grossly at 4-/5. STG Duration 12/18/22 Snf Goal (LTG) Pt with LE grossly at 4/5. LTG Duration 01/15/23 JOSIAH Impairment Pt with Oswestry score of 68 Short Term Goal (STG) Pt with JOSIAH score of 55 STG Duration 12/18/22 Probation Agent Goal (LTG) Pt with JOSIAH Score of 45 LTG Duration 01/15/23 LEFS Impairment Pt with LEFS score of 10/80. Short Term Goal (STG) Pt with LEFS score of 30/80 STG Duration 12/18/22 Probation Agent Goal (LTG) Pt with LEFS score of 45/80. LTG Duration 01/15/23 Assessment Summary Assessment Pt demonstrated fatigue during exercise, though denied increase in pain. Pt continues to require rest breaks between exercises. Pt challenged with balance exercises. Pt demonstrates decreased foot clearance with gait. Pt would benefit from continued PT to progress strength, mobility and balance as tolerated. Physical Therapy Plan Frequency and Duration Frequency of Treatment 2x/Week Duration of treatment (weeks) 8 Plan of Care Start Date 11/20/22 Plan of Care End Date 01/15/23 Therapeutic Interventions Therapeutic Interventions Balance Training,Coordination Training,Gait Training,Home Exercise Program,Joint Mobilizations,Manual Therapy, Neuromuscular Re-education, Patient/Caregiver Education, Self-Care/Home Management,Soft Tissue Mobilization, Therapeutic Activities, Therapeutic Exercises Modalities Cold Pack/Ice Massage,Electric Stimulation,Hot Packs, Ultrasound Next Visit Focus/Plan Next Note Type Treatment Note Next Visit Plan Progress strength, endurance and mobility as tolerated, work on balance
--- NOTE | 2022-12-04 17:08 | PT.OTN ---
Current Diagnoses Other symptoms and signs involving the musculoskeletal system (12/04/22) Arthrodesis status (12/04/22) Physical Therapy Treatment Note PT-OP-A Visit Information Start: 11/20/22 13:51 Freq: Status: Active Protocol: Document 12/04/22 14:44 SW (Rec: 12/04/22 17:08 SW [id number]) Out-Patient Physical Therapy Visit Information Visit Information Visit Type Treatment Note Visit Start Time 14:45 Visit Stop Time 15:28 Total Visit Minutes 43 Visit Number 4 Number of BOTTOM FINISHER Visits 1 PT-OP-B Current Condition Start: 11/20/22 13:51 Freq: Status: Active Protocol: Document 11/28/22 12:15 AM (Rec: 11/28/22 13:39 AM [id number]) Current Condition History of Current Condition Onset Date Chronic LBP, fusion in Nov Current Complaints low back pain, weakness. History of Current Condition Pt had lumbar fusion L4-5-S1 on January 30, 2022. Pt reports that he continues to have a lot of pain. Pt reports that he feels that he healed up [facility]. Pt has appt with surgeon tomorrow. Pt reports symptoms are intermittent. Pt is primarily at home walking with walking sticks. Pt only leaves house for doctors appointments. Pt reports that he has had falls recently. Pt reports that he cannot build strength. Pt reports low back, tailbone and hip pain. Pt uses FWW when ambulating outside of house. Pt reports that he always feels better if he sits down. Pt reports 3 falls in the last month. Pt reports that he has been riding recumbent bike for 30 min with goal to do this 6x/day. Prior Treatments and Tests Pt had MRI. PT-OP-C Subjective Start: 11/20/22 13:51 Freq: Status: Active Protocol: Document 12/04/22 14:44 SW (Rec: 12/04/22 17:08 SW [id number]) OP-PT Subjective Patient Comments Patient Comments Pt reports feeling weak today d/t not getting around to his exercises this week. PT-OP-D Balance Start: 11/20/22 13:51 Freq: Status: Active Protocol: Document 11/20/22 13:52 AM (Rec: 11/20/22 16:37 AM [id number]) Balance Tests Single Limb Standing Single Limb- Right unable to lift LE Single Limb- Left unable to lift LE PT-OP-E Functional Tests Start: 11/20/22 13:51 Freq: Status: Active Protocol: Document 11/20/22 13:52 AM (Rec: 11/20/22 16:37 AM [id number]) Functional Tests 30 Second Sit to Stand Test Score 0 Comments Unable to do without use of UE PT-OP-G Mobility & Gait Start: 11/20/22 13:51 Freq: Status: Active Protocol: Document 11/20/22 13:52 AM (Rec: 11/20/22 16:37 AM [id number]) OP Mobility Evaluation Bed Mobility Supine to and from Sit Min-Mod A with transfer from sit-supine OP Gait Assessment Gait Gait Assistance Required: Independent,Standby Assistance Assistive Devices Assistive Device None,Front Wheeled Walker Gait Deviations General Gait Pattern Antalgic,Flexed Trunk Factors Limiting Gait Function Factors Limiting Gait Function Decreased Activity Tolerance, Decreased Strength,Pain,Poor Balance PT-OP-J Posture/Palpation/Skin Start: 11/20/22 13:51 Freq: Status: Active Protocol: Document 11/20/22 13:52 AM (Rec: 11/20/22 16:37 AM [id number]) Posture Evaluation Position Standing L-Spine Posture Flattened Palpation Assessment Location Low back Palpation Location lumbar paraspinals Palpation Findings Tenderness PT-OP-M Strength Start: 11/20/22 13:51 Freq: Status: Active Protocol: Document 11/20/22 13:52 AM (Rec: 11/20/22 16:37 AM [id number]) Hip Strength Hip Manual Muscle Testing Right Flexion (L2) 3+ Fair+ Extension (S1) 3+ Fair+ Abduction 3 Fair Adduction 4- Good- External Rotation 3+ Fair+ Internal Rotation 3+ Fair+ Left Flexion (L2) 3+ Fair+ Extension (S1) 3+ Fair+ Abduction 3 Fair Adduction 4- Good- External Rotation 3+ Fair+ Internal Rotation 3+ Fair+ Knee Strength Knee Manual Muscle Testing Right Flexion (S2) 4- Good- Extension (L3) 4- Good- Left Flexion (S2) 4- Good- Extension (L3) 4- Good- PT-OP-Q Treatments Start: 11/20/22 13:51 Freq: Status: Active Protocol: Document 12/04/22 14:44 SW (Rec: 12/04/22 17:08 [id number]) Cardio Equipment Recumbent Stepper (Sci-Fit) Duration (Minutes) 7 Resistance 2.5 Seat Position 14 Therapeutic Exercises Supine Exercises Hooklying marching Supine Exercise Name Hookyling march Side bilateral Reps/Minutes 2x10 Comments cues for abdominals Lower abdominal cane pull down Supine Exercise Name Dowel with band held by therapist at head of bed Resistance GTB-BTB Equipment Used dowel BTB Reps/Minutes 3x10 Comments cues for lower abdominals Hip adduction iso Supine Exercise Name Hip adduction iso Side bilateral Equipment Used blue ball Reps/Minutes 10x5 sec Comments cues for core SKTC Supine Exercise Name SKTC Side bilateral Reps/Minutes 2x20 sec BKFO Supine Exercise Name BKFO Side bilateral Reps/Minutes 2x10 Standing Exercises Chair squat Standing Exercise Name Chair squat Equipment Used At hi-low table, table elevated Reps/Minutes 2x8, with x10 standing balance between reps Comments No use of hands, frequent cues for mechanics PT-OP-T Assessment and Plan Start: 11/20/22 13:51 Freq: Status: Active Protocol: Document 12/04/22 14:44 SW (Rec: 12/04/22 17:08 [id number]) Physical Therapy Assessment Goals HEP Impairment Pt not currently participating in strengthening program. Pt is riding recumbent bike. Speech Language Pathologist Travel Goal (LTG) Pt independent with HEP LTG Duration 01/15/23 Standing Impairment Pt able to stand for 5 min before need to sit secondary to pain. Short Term Goal (STG) Pt able to stand for 10 min before need to sit secondary to pain. STG Duration 12/18/22 [facility] Goal (LTG) Pt able to stand for 20 min before need to sit secondary to pain. LTG Duration 01/15/23 Pain Impairment Pt reports pain at 10/10 at worst. Short Term Goal (STG) Pt with reported pain at 7/10 at worst. STG Duration 12/18/22 [facility] Goal (LTG) Pt with reported pain at 4/10 at worst. LTG Duration 01/15/23 Strength Impairment Pt with LE strength grossly at 3+/5. Short Term Goal (STG) Pt with LE strength grossly at 4-/5. STG Duration 12/18/22 Speech Language Pathologist Travel Goal (LTG) Pt with LE grossly at 4/5. LTG Duration 01/15/23 JOSIAH Impairment Pt with Oswestry score of 68 Short Term Goal (STG) Pt with JOSIAH score of 55 STG Duration 12/18/22 Speech Language Pathologist Travel Goal (LTG) Pt with JOSIAH Score of 45 LTG Duration 01/15/23 LEFS Impairment Pt with LEFS score of 10/80. Short Term Goal (STG) Pt with LEFS score of 30/80 STG Duration 12/18/22 Speech Language Pathologist Travel Goal (LTG) Pt with LEFS score of 45/80. LTG Duration 01/15/23 Assessment Summary Assessment Pt denies presentation of pain throughout session. Required frequent rest breaks throughout session. Increased time on stepper per pt request , tolerated well with good pt feedback post, though unable to tolerate as much therapeutic exercise at end of session d/t LE fatigue. Pt has not been compliant with HEP this week and reports can feel the weakness this week. Physical Therapy Plan Frequency and Duration Frequency of Treatment 2x/Week Duration of treatment (weeks) 8 Plan of Care Start Date 11/20/22 Plan of Care End Date 01/15/23 Therapeutic Interventions Therapeutic Interventions Balance Training,Coordination Training,Gait Training,Home Exercise Program,Joint Mobilizations,Manual Therapy, Neuromuscular Re-education, Patient/Caregiver Education, Self-Care/Home Management,Soft Tissue Mobilization, Therapeutic Activities, Therapeutic Exercises Modalities Cold Pack/Ice Massage,Electric Stimulation,Hot Packs, Ultrasound Next Visit Focus/Plan Next Note Type Treatment Note Next Visit Plan Progress strength, endurance and mobility as tolerated, work on balance
--- NOTE | 2022-12-11 16:42 | PT.OTN ---
Current Diagnoses Other symptoms and signs involving the musculoskeletal system (12/11/22) Arthrodesis status (12/11/22) Physical Therapy Treatment Note PT-OP-A Visit Information Start: 11/20/22 13:51 Freq: Status: Active Protocol: Document 12/11/22 14:47 SW (Rec: 12/11/22 16:32 SW [id number]) Out-Patient Physical Therapy Visit Information Visit Information Visit Type Treatment Note Visit Start Time 14:47 Visit Stop Time 15:30 Total Visit Minutes 43 Visit Number 5 Number of TAX PREPARER Visits 2 Precautions Precautions fall risk, lumbar fusion PT-OP-B Current Condition Start: 11/20/22 13:51 Freq: Status: Active Protocol: Document 11/28/22 12:15 AM (Rec: 11/28/22 13:39 AM [id number]) Current Condition History of Current Condition Onset Date Chronic LBP, fusion in Nov Current Complaints low back pain, weakness. History of Current Condition Pt had lumbar fusion L4-5-S1 on January 30, 2022. Pt reports that he continues to have a lot of pain. Pt reports that he feels that he healed up [place]. Pt has appt with surgeon tomorrow. Pt reports symptoms are intermittent. Pt is primarily at home walking with walking sticks. Pt only leaves house for doctors appointments. Pt reports that he has had falls recently. Pt reports that he cannot build strength. Pt reports low back, tailbone and hip pain. Pt uses FWW when ambulating outside of house. Pt reports that he always feels better if he sits down. Pt reports 3 falls in the last month. Pt reports that he has been riding recumbent bike for 30 min with goal to do this 6x/day. Prior Treatments and Tests Pt had MRI. PT-OP-C Subjective Start: 11/20/22 13:51 Freq: Status: Active Protocol: Document 12/11/22 14:47 SW (Rec: 12/11/22 16:32 SW [id number]) OP-PT Subjective Patient Comments Patient Comments Pt reports he was sore after last session, maybe a little too much. He has been compliant with HEP this week. PT-OP-D Balance Start: 11/20/22 13:51 Freq: Status: Active Protocol: Document 11/20/22 13:52 AM (Rec: 11/20/22 16:37 AM [id number]) Balance Tests Single Limb Standing Single Limb- Right unable to lift LE Single Limb- Left unable to lift LE PT-OP-E Functional Tests Start: 11/20/22 13:51 Freq: Status: Active Protocol: Document 11/20/22 13:52 AM (Rec: 11/20/22 16:37 AM [id number]) Functional Tests 30 Second Sit to Stand Test Score 0 Comments Unable to do without use of UE PT-OP-G Mobility & Gait Start: 11/20/22 13:51 Freq: Status: Active Protocol: Document 11/20/22 13:52 AM (Rec: 11/20/22 16:37 AM [id number]) OP Mobility Evaluation Bed Mobility Supine to and from Sit Min-Mod A with transfer from sit-supine OP Gait Assessment Gait Gait Assistance Required: Independent,Standby Assistance Assistive Devices Assistive Device None,Front Wheeled Walker Gait Deviations General Gait Pattern Antalgic,Flexed Trunk Factors Limiting Gait Function Factors Limiting Gait Function Decreased Activity Tolerance, Decreased Strength,Pain,Poor Balance PT-OP-J Posture/Palpation/Skin Start: 11/20/22 13:51 Freq: Status: Active Protocol: Document 11/20/22 13:52 AM (Rec: 11/20/22 16:37 AM [id number]) Posture Evaluation Position Standing L-Spine Posture Flattened Palpation Assessment Location Low back Palpation Location lumbar paraspinals Palpation Findings Tenderness PT-OP-M Strength Start: 11/20/22 13:51 Freq: Status: Active Protocol: Document 11/20/22 13:52 AM (Rec: 11/20/22 16:37 AM [id number]) Hip Strength Hip Manual Muscle Testing Right Flexion (L2) 3+ Fair+ Extension (S1) 3+ Fair+ Abduction 3 Fair Adduction 4- Good- External Rotation 3+ Fair+ Internal Rotation 3+ Fair+ Left Flexion (L2) 3+ Fair+ Extension (S1) 3+ Fair+ Abduction 3 Fair Adduction 4- Good- External Rotation 3+ Fair+ Internal Rotation 3+ Fair+ Knee Strength Knee Manual Muscle Testing Right Flexion (S2) 4- Good- Extension (L3) 4- Good- Left Flexion (S2) 4- Good- Extension (L3) 4- Good- PT-OP-Q Treatments Start: 11/20/22 13:51 Freq: Status: Active Protocol: Document 12/11/22 14:47 SW (Rec: 12/11/22 15:34 SW [id number]) Cardio Equipment Recumbent Stepper (Sci-Fit) Duration (Minutes) 5 Resistance 2.5 Seat Position 14 Therapeutic Exercises Supine Exercises Hooklying marching Supine Exercise Name Hookyling march Side bilateral Reps/Minutes 2x10 Comments cues for abdominals Hip adduction iso Supine Exercise Name Hip adduction iso Side bilateral Equipment Used blue ball Reps/Minutes 10x5 sec Comments cues for core Sitting Exercises Calf raises Sitting Exercise Name Calf raises with BUE resistance Side bilateral Resistance BUE resistance Reps/Minutes 2 x 10 Standing Exercises Hip ext Standing Exercise Name hip extension Side bilateral Equipment Used @ bar Reps/Minutes x5 Side step Standing Exercise Name Side step Equipment Used in // bars Hip abduction Standing Exercise Name Standing hip abduction Side bilateral Equipment Used // bars Reps/Minutes x10 Comments cues for posture Chair squat Standing Exercise Name Chair squat Equipment Used At hi-low table, 23.5 inches Reps/Minutes x5 Comments No use of hands Standing may Standing Exercise Name Standing may Side bilateral Equipment Used railing on treadmill Reps/Minutes x10 Neuro Re-Education Treatment Balance Activities Semi tandem Details Semi-tandem stance Surface level Equipment // bars, gait belt Reps/Duration 2x30 sec PT-OP-T Assessment and Plan Start: 11/20/22 13:51 Freq: Status: Active Protocol: Document 12/11/22 14:47 (Rec: 12/11/22 15:34 [id number]) Physical Therapy Assessment Goals HEP Impairment Pt not currently participating in strengthening program. Pt is riding recumbent bike. Usp Goal (LTG) Pt independent with HEP LTG Duration 01/15/23 Standing Impairment Pt able to stand for 5 min before need to sit secondary to pain. Short Term Goal (STG) Pt able to stand for 10 min before need to sit secondary to pain. STG Duration 12/18/22 Usp Goal (LTG) Pt able to stand for 20 min before need to sit secondary to pain. LTG Duration 01/15/23 Pain Impairment Pt reports pain at 10/10 at worst. Short Term Goal (STG) Pt with reported pain at 7/10 at worst. STG Duration 12/18/22 Usp Goal (LTG) Pt with reported pain at 4/10 at worst. LTG Duration 01/15/23 Strength Impairment Pt with LE strength grossly at 3+/5. Short Term Goal (STG) Pt with LE strength grossly at 4-/5. STG Duration 12/18/22 Gold Reclaimer Goal (LTG) Pt with LE grossly at 4/5. LTG Duration 01/15/23 JOSIAH Impairment Pt with Oswestry score of 68 Short Term Goal (STG) Pt with JOSIAH score of 55 STG Duration 12/18/22 Usp Goal (LTG) Pt with JOSIAH Score of 45 LTG Duration 01/15/23 LEFS Impairment Pt with LEFS score of 10/80. Short Term Goal (STG) Pt with LEFS score of 30/80 STG Duration 12/18/22 Usp Goal (LTG) Pt with LEFS score of 45/80. LTG Duration 01/15/23 Assessment Summary Assessment Pt fatigued quickly throughout session, requiring multiple seated rest breaks. Visible mm fatigue present during ther ex. Regressed ex this date d/t pt fatigue post last session, interfering with pt ADLs. Physical Therapy Plan Frequency and Duration Frequency of Treatment 2x/Week Duration of treatment (weeks) 8 Plan of Care Start Date 11/20/22 Plan of Care End Date 01/15/23 Therapeutic Interventions Therapeutic Interventions Balance Training,Coordination Training,Gait Training,Home Exercise Program,Joint Mobilizations,Manual Therapy, Neuromuscular Re-education, Patient/Caregiver Education, Self-Care/Home Management,Soft Tissue Mobilization, Therapeutic Activities, Therapeutic Exercises Modalities Cold Pack/Ice Massage,Electric Stimulation,Hot Packs, Ultrasound Next Visit Focus/Plan Next Note Type Treatment Note Next Visit Plan Progress strength, endurance and mobility as tolerated, work on balance
--- NOTE | 2022-12-18 16:10 | PT.OTN ---
Current Diagnoses Other symptoms and signs involving the musculoskeletal system (12/18/22) Arthrodesis status (12/18/22) Physical Therapy Treatment Note PT-OP-A Visit Information Start: 11/20/22 13:51 Freq: Status: Active Protocol: Document 12/18/22 16:10 AM (Rec: 12/18/22 17:14 AM [id number]) Out-Patient Physical Therapy Visit Information Visit Information Visit Type Progress Note Visit Start Time 16:06 Visit Stop Time 16:48 Total Visit Minutes 42 Visit Number 6 Number of STORE ASSISTANT Visits 2 Precautions Precautions Fall risk, lumbar fusion PT-OP-B Current Condition Start: 11/20/22 13:51 Freq: Status: Active Protocol: Document 11/28/22 12:15 AM (Rec: 11/28/22 13:39 AM [id number]) Current Condition History of Current Condition Onset Date Chronic LBP, fusion in Nov Current Complaints low back pain, weakness. History of Current Condition Pt had lumbar fusion L4-5-S1 on January 30, 2022. Pt reports that he continues to have a lot of pain. Pt reports that he feels that he healed up senior living. Pt has appt with surgeon tomorrow. Pt reports symptoms are intermittent. Pt is primarily at home walking with walking sticks. Pt only leaves house for doctors appointments. Pt reports that he has had falls recently. Pt reports that he cannot build strength. Pt reports low back, tailbone and hip pain. Pt uses FWW when ambulating outside of house. Pt reports that he always feels better if he sits down. Pt reports 3 falls in the last month. Pt reports that he has been riding recumbent bike for 30 min with goal to do this 6x/day. Prior Treatments and Tests Pt had MRI. PT-OP-C Subjective Start: 11/20/22 13:51 Freq: Status: Active Protocol: Document 12/18/22 16:10 AM (Rec: 12/18/22 17:14 AM [id number]) OP-PT Subjective Patient Comments Patient Comments Pt reports that he feels that pain is decreasing slightly. Pt reports good compliance with exercise at home and feels that he has improving endurance with ability to increase time on recumbent bike. Pt reports pain is primarily at the tailbone. Pt reports that he is getting an injection at L hip on Dec 31 . PT-OP-D Balance Start: 11/20/22 13:51 Freq: Status: Active Protocol: Document 11/20/22 13:52 AM (Rec: 11/20/22 16:37 AM [id number]) Balance Tests Single Limb Standing Single Limb- Right unable to lift LE Single Limb- Left unable to lift LE PT-OP-E Functional Tests Start: 11/20/22 13:51 Freq: Status: Active Protocol: Document 11/20/22 13:52 AM (Rec: 11/20/22 16:37 AM [id number]) Functional Tests 30 Second Sit to Stand Test Score 0 Comments Unable to do without use of UE PT-OP-G Mobility & Gait Start: 11/20/22 13:51 Freq: Status: Active Protocol: Document 11/20/22 13:52 AM (Rec: 11/20/22 16:37 AM [id number]) OP Mobility Evaluation Bed Mobility Supine to and from Sit Min-Mod A with transfer from sit-supine OP Gait Assessment Gait Gait Assistance Required: Independent,Standby Assistance Assistive Devices Assistive Device None,Front Wheeled Walker Gait Deviations General Gait Pattern Antalgic,Flexed Trunk Factors Limiting Gait Function Factors Limiting Gait Function Decreased Activity Tolerance, Decreased Strength,Pain,Poor Balance PT-OP-J Posture/Palpation/Skin Start: 11/20/22 13:51 Freq: Status: Active Protocol: Document 11/20/22 13:52 AM (Rec: 11/20/22 16:37 AM [id number]) Posture Evaluation Position Standing L-Spine Posture Flattened Palpation Assessment Location Low back Palpation Location lumbar paraspinals Palpation Findings Tenderness PT-OP-M Strength Start: 11/20/22 13:51 Freq: Status: Active Protocol: Document 11/20/22 13:52 AM (Rec: 11/20/22 16:37 AM [id number]) Hip Strength Hip Manual Muscle Testing Right Flexion (L2) 3+ Fair+ Extension (S1) 3+ Fair+ Abduction 3 Fair Adduction 4- Good- External Rotation 3+ Fair+ Internal Rotation 3+ Fair+ Left Flexion (L2) 3+ Fair+ Extension (S1) 3+ Fair+ Abduction 3 Fair Adduction 4- Good- External Rotation 3+ Fair+ Internal Rotation 3+ Fair+ Knee Strength Knee Manual Muscle Testing Right Flexion (S2) 4- Good- Extension (L3) 4- Good- Left Flexion (S2) 4- Good- Extension (L3) 4- Good- PT-OP-Q Treatments Start: 11/20/22 13:51 Freq: Status: Active Protocol: Document 12/18/22 16:10 AM (Rec: 12/18/22 17:14 AM [id number]) Cardio Equipment Recumbent Stepper (Sci-Fit) Duration (Minutes) 5 Resistance 4 Seat Position 14 Gym Equipment Shuttle Recovery Bilateral squat Resistance 50# (2 navy) Shuttle Recovery Platform Stable Reps/Time 2x10, 2nd set with ball between knees to facilitate increased VM Therapeutic Exercises Standing Exercises Stationary standing Standing Exercise Name Standing with no UE support to improve standing endurance. Equipment Used in // bars Reps/Minutes Pt able to hold for 6 min Comments Pt reports that this is the longest that he has stood at one time. Hip abduction Standing Exercise Name Standing hip abduction Side bilateral Equipment Used // bars Reps/Minutes 2x10 Comments cues for posture Standing march Standing Exercise Name Standing march Side bilateral Equipment Used standing march Reps/Minutes 2x10 Calf raises Equipment Used // bars Reps/Minutes 2x10 PT-OP-T Assessment and Plan Start: 11/20/22 13:51 Freq: Status: Active Protocol: Document 12/18/22 16:10 AM (Rec: 12/18/22 17:14 AM [id number]) Physical Therapy Assessment Goals HEP Impairment Pt not currently participating in strengthening program. Pt is riding recumbent bike. Farm Agent Goal (LTG) Pt independent with HEP LTG Duration 01/15/23 Standing Impairment Pt able to stand for 5 min before need to sit secondary to pain. Short Term Goal (STG) Pt able to stand for 10 min before need to sit secondary to pain. 12/18/22: Pt progressing towards goal. Pt able to stand for 6 min before need to sit. STG Duration 12/18/22 Snf Goal (LTG) Pt able to stand for 20 min before need to sit secondary to pain. LTG Duration 01/15/23 Pain Impairment Pt reports pain at 10/10 at worst. Short Term Goal (STG) Pt with reported pain at 7/10 at worst. 12/18/22: Pt reports pain at 6 -7/10 at the worst. Goal met STG Duration 12/18/22-achieved Farm Agent Goal (LTG) Pt with reported pain at 4/10 at worst. LTG Duration 01/15/23 Strength Impairment Pt with LE strength grossly at 3+/5. Short Term Goal (STG) Pt with LE strength grossly at 4-/5. 12/18/22: Progressing towards goal. Pt with 3+to 4-/5. STG Duration 12/18/22 Farm Agent Goal (LTG) Pt with LE grossly at 4/5. LTG Duration 01/15/23 JOSIAH Impairment Pt with Oswestry score of 68 Short Term Goal (STG) Pt with JOSIAH score of 55 12/18/22: GOAL MET-Pt with score of 54 on Oswestry. STG Duration 12/18/22-achieved Farm Agent Goal (LTG) Pt with JOSIAH Score of 45 LTG Duration 01/15/23 LEFS Impairment Pt with LEFS score of 10/80. Short Term Goal (STG) Pt with LEFS score of 30/80 12/18/22: Pt with score of 17/ 80. Improved, though continues to progress towards goal. STG Duration 12/18/22 Snf Goal (LTG) Pt with LEFS score of 45/80. LTG Duration 01/15/23 Assessment Summary Assessment Pt continues to fatigue quickly during exercise, requiring rest breaks. Pt able to stand for 6 min at one time, which pt reports is a record for him. Pt visibly fatigued, with self-cueing to extend knees and squeeze glutes. Pt making progress towards STG, meeting one goal today. Pt required CGA with gait towards end of session secondary to LE fatigue. Pt would benefit from continued PT to progress strength and mobility as tolerated. Physical Therapy Plan Frequency and Duration Frequency of Treatment 2x/Week Duration of treatment (weeks) 8 Plan of Care Start Date 11/20/22 Plan of Care End Date 01/15/23 Therapeutic Interventions Therapeutic Interventions Balance Training,Coordination Training,Gait Training,Home Exercise Program,Joint Mobilizations,Manual Therapy, Neuromuscular Re-education, Patient/Caregiver Education, Self-Care/Home Management,Soft Tissue Mobilization, Therapeutic Activities, Therapeutic Exercises Modalities Cold Pack/Ice Massage,Electric Stimulation,Hot Packs, Ultrasound Next Visit Focus/Plan Next Note Type Treatment Note Next Visit Plan Progress strength, endurance and mobility as tolerated, work on balance
--- NOTE | 2022-12-20 15:18 | PT.OTN ---
Current Diagnoses Other symptoms and signs involving the musculoskeletal system (12/20/22) Arthrodesis status (12/20/22) Physical Therapy Treatment Note PT-OP-A Visit Information Start: 11/20/22 13:51 Freq: Status: Active Protocol: Document 12/20/22 15:18 AM (Rec: 12/20/22 16:58 AM [id number]) Out-Patient Physical Therapy Visit Information Visit Information Visit Type Treatment Note Visit Start Time 15:19 Visit Stop Time 16:04 Total Visit Minutes 45 Visit Number 7 Number of TAKE OFF WORKER Visits 2 Precautions Precautions Fall risk, lumbar fusion, CGA with ambulation PT-OP-B Current Condition Start: 11/20/22 13:51 Freq: Status: Active Protocol: Document 11/28/22 12:15 AM (Rec: 11/28/22 13:39 AM [id number]) Current Condition History of Current Condition Onset Date Chronic LBP, fusion in Nov Current Complaints low back pain, weakness. History of Current Condition Pt had lumbar fusion L4-5-S1 on January 30, 2022. Pt reports that he continues to have a lot of pain. Pt reports that he feels that he healed up fdc. Pt has appt with surgeon tomorrow. Pt reports symptoms are intermittent. Pt is primarily at home walking with walking sticks. Pt only leaves house for doctors appointments. Pt reports that he has had falls recently. Pt reports that he cannot build strength. Pt reports low back, tailbone and hip pain. Pt uses FWW when ambulating outside of house. Pt reports that he always feels better if he sits down. Pt reports 3 falls in the last month. Pt reports that he has been riding recumbent bike for 30 min with goal to do this 6x/day. Prior Treatments and Tests Pt had MRI. PT-OP-C Subjective Start: 11/20/22 13:51 Freq: Status: Active Protocol: Document 12/20/22 15:18 AM (Rec: 12/20/22 16:58 AM [id number]) OP-PT Subjective Patient Comments Patient Comments Pt reports that he feels that pain has lessened overall. Pt reports that his LE feel more fatigued today and that he had a hard time getting to the car and into PT today. Pt reports that he did not exercise at all earlier today because he didn't want to be too tired for PT, though feels that maybe he should have done more activity prior. Pt's reports that there have been no falls in the last 2 weeks. PT-OP-D Balance Start: 11/20/22 13:51 Freq: Status: Active Protocol: Document 11/20/22 13:52 AM (Rec: 11/20/22 16:37 AM [id number]) Balance Tests Single Limb Standing Single Limb- Right unable to lift LE Single Limb- Left unable to lift LE PT-OP-E Functional Tests Start: 11/20/22 13:51 Freq: Status: Active Protocol: Document 11/20/22 13:52 AM (Rec: 11/20/22 16:37 AM [id number]) Functional Tests 30 Second Sit to Stand Test Score 0 Comments Unable to do without use of UE PT-OP-G Mobility & Gait Start: 11/20/22 13:51 Freq: Status: Active Protocol: Document 11/20/22 13:52 AM (Rec: 11/20/22 16:37 AM [id number]) OP Mobility Evaluation Bed Mobility Supine to and from Sit Min-Mod A with transfer from sit-supine OP Gait Assessment Gait Gait Assistance Required: Independent,Standby Assistance Assistive Devices Assistive Device None,Front Wheeled Walker Gait Deviations General Gait Pattern Antalgic,Flexed Trunk Factors Limiting Gait Function Factors Limiting Gait Function Decreased Activity Tolerance, Decreased Strength,Pain,Poor Balance PT-OP-J Posture/Palpation/Skin Start: 11/20/22 13:51 Freq: Status: Active Protocol: Document 11/20/22 13:52 AM (Rec: 11/20/22 16:37 AM [id number]) Posture Evaluation Position Standing L-Spine Posture Flattened Palpation Assessment Location Low back Palpation Location lumbar paraspinals Palpation Findings Tenderness PT-OP-M Strength Start: 11/20/22 13:51 Freq: Status: Active Protocol: Document 11/20/22 13:52 AM (Rec: 11/20/22 16:37 AM [id number]) Hip Strength Hip Manual Muscle Testing Right Flexion (L2) 3+ Fair+ Extension (S1) 3+ Fair+ Abduction 3 Fair Adduction 4- Good- External Rotation 3+ Fair+ Internal Rotation 3+ Fair+ Left Flexion (L2) 3+ Fair+ Extension (S1) 3+ Fair+ Abduction 3 Fair Adduction 4- Good- External Rotation 3+ Fair+ Internal Rotation 3+ Fair+ Knee Strength Knee Manual Muscle Testing Right Flexion (S2) 4- Good- Extension (L3) 4- Good- Left Flexion (S2) 4- Good- Extension (L3) 4- Good- PT-OP-Q Treatments Start: 11/20/22 13:51 Freq: Status: Active Protocol: Document 12/20/22 15:18 AM (Rec: 12/20/22 16:58 AM [id number]) Cardio Equipment Recumbent Stepper (Sci-Fit) Duration (Minutes) 5 Resistance 4 Seat Position 14 Therapeutic Exercises Standing Exercises Floor tap Standing Exercise Name Chair behind pt in case of LE failure Resistance orange swissball Reps/Minutes 3x3 (to failure) Comments CGA, tap ball to floor (squat) Pallof press Resistance Rush TB and 2# weight Reps/Minutes 2x10 Comments cues for posture, CGA, break between each set Shoulder extension Side bilateral Equipment Used GTB Reps/Minutes 2x10 Comments CGA, cueing for posture, manual cueing for scapular control Row Side bilateral Reps/Minutes 2x10 Comments CGA, break between sets, manual cueing for scap PT-OP-T Assessment and Plan Start: 11/20/22 13:51 Freq: Status: Active Protocol: Document 12/20/22 15:18 AM (Rec: 12/20/22 16:58 AM [id number]) Physical Therapy Assessment Goals HEP Impairment Pt not currently participating in strengthening program. Pt is riding recumbent bike. Real Estate Rep Goal (LTG) Pt independent with HEP LTG Duration 01/15/23 Standing Impairment Pt able to stand for 5 min before need to sit secondary to pain. Short Term Goal (STG) Pt able to stand for 10 min before need to sit secondary to pain. 12/18/22: Pt progressing towards goal. Pt able to stand for 6 min before need to sit. STG Duration 12/18/22 Real Estate Rep Goal (LTG) Pt able to stand for 20 min before need to sit secondary to pain. LTG Duration 01/15/23 Pain Impairment Pt reports pain at 10/10 at worst. Short Term Goal (STG) Pt with reported pain at 7/10 at worst. 12/18/22: Pt reports pain at 6 -7/10 at the worst. Goal met STG Duration 12/18/22-achieved Real Estate Rep Goal (LTG) Pt with reported pain at 4/10 at worst. LTG Duration 01/15/23 Strength Impairment Pt with LE strength grossly at 3+/5. Short Term Goal (STG) Pt with LE strength grossly at 4-/5. 12/18/22: Progressing towards goal. Pt with 3+to 4-/5. STG Duration 12/18/22 Real Estate Rep Goal (LTG) Pt with LE grossly at 4/5. LTG Duration 01/15/23 JOSIAH Impairment Pt with Oswestry score of 68 Short Term Goal (STG) Pt with JOSIAH score of 55 12/18/22: GOAL MET-Pt with score of 54 on Oswestry. STG Duration 12/18/22-achieved Detention Goal (LTG) Pt with JOSIAH Score of 45 LTG Duration 01/15/23 LEFS Impairment Pt with LEFS score of 10/80. Short Term Goal (STG) Pt with LEFS score of 30/80 12/18/22: Pt with score of 17/ 80. Improved, though continues to progress towards goal. STG Duration 12/18/22 Real Estate Rep Goal (LTG) Pt with LEFS score of 45/80. LTG Duration 01/15/23 Assessment Summary Assessment CGA during all ambulation to/ from waiting room today. Pt demonstrated increased overall fatigue, requiring frequent rest breaks throughout session . Pt requires cueing for posture and trunk stabilization with all standing exercises. Pt would benefit from continued PT to progress strength, balance and mobility to improve tolerance to functional tasks. Physical Therapy Plan Frequency and Duration Frequency of Treatment 2x/Week Duration of treatment (weeks) 8 Plan of Care Start Date 11/20/22 Plan of Care End Date 01/15/23 Therapeutic Interventions Therapeutic Interventions Balance Training,Coordination Training,Gait Training,Home Exercise Program,Joint Mobilizations,Manual Therapy, Neuromuscular Re-education, Patient/Caregiver Education, Self-Care/Home Management,Soft Tissue Mobilization, Therapeutic Activities, Therapeutic Exercises Modalities Cold Pack/Ice Massage,Electric Stimulation,Hot Packs, Ultrasound Next Visit Focus/Plan Next Note Type Treatment Note Next Visit Plan Progress strength, endurance and mobility as tolerated, work on balance
--- NOTE | 2022-12-23 16:04 | PT.OTN ---
Current Diagnoses Other symptoms and signs involving the musculoskeletal system (12/23/22) Arthrodesis status (12/23/22) Physical Therapy Treatment Note PT-OP-A Visit Information Start: 11/20/22 13:51 Freq: Status: Active Protocol: Document 12/23/22 16:04 AM (Rec: 12/23/22 16:57 AM [id number]) Out-Patient Physical Therapy Visit Information Visit Information Visit Type Treatment Note Visit Start Time 16:04 Visit Stop Time 16:49 Total Visit Minutes 45 Visit Number 8 Precautions Precautions Fall risk, CGA with ambulation PT-OP-B Current Condition Start: 11/20/22 13:51 Freq: Status: Active Protocol: Document 11/28/22 12:15 AM (Rec: 11/28/22 13:39 AM [id number]) Current Condition History of Current Condition Onset Date Chronic LBP, fusion in Nov Current Complaints low back pain, weakness. History of Current Condition Pt had lumbar fusion L4-5-S1 on January 30, 2022. Pt reports that he continues to have a lot of pain. Pt reports that he feels that he healed up care home. Pt has appt with surgeon tomorrow. Pt reports symptoms are intermittent. Pt is primarily at home walking with walking sticks. Pt only leaves house for doctors appointments. Pt reports that he has had falls recently. Pt reports that he cannot build strength. Pt reports low back, tailbone and hip pain. Pt uses FWW when ambulating outside of house. Pt reports that he always feels better if he sits down. Pt reports 3 falls in the last month. Pt reports that he has been riding recumbent bike for 30 min with goal to do this 6x/day. Prior Treatments and Tests Pt had MRI. PT-OP-C Subjective Start: 11/20/22 13:51 Freq: Status: Active Protocol: Document 12/23/22 16:04 AM (Rec: 12/23/22 16:57 AM [id number]) OP-PT Subjective Patient Comments Patient Comments Pt reports that he had a controlled fall while descending 2 steps at home. Pt reports that he felt that his knees just gave out on him. Pt reports that he has a hard time recovering following these incidents. PT-OP-D Balance Start: 11/20/22 13:51 Freq: Status: Active Protocol: Document 11/20/22 13:52 AM (Rec: 11/20/22 16:37 AM [id number]) Balance Tests Single Limb Standing Single Limb- Right unable to lift LE Single Limb- Left unable to lift LE PT-OP-E Functional Tests Start: 11/20/22 13:51 Freq: Status: Active Protocol: Document 11/20/22 13:52 AM (Rec: 11/20/22 16:37 AM [id number]) Functional Tests 30 Second Sit to Stand Test Score 0 Comments Unable to do without use of UE PT-OP-G Mobility & Gait Start: 11/20/22 13:51 Freq: Status: Active Protocol: Document 11/20/22 13:52 AM (Rec: 11/20/22 16:37 AM [id number]) OP Mobility Evaluation Bed Mobility Supine to and from Sit Min-Mod A with transfer from sit-supine OP Gait Assessment Gait Gait Assistance Required: Independent,Standby Assistance Assistive Devices Assistive Device None,Front Wheeled Walker Gait Deviations General Gait Pattern Antalgic,Flexed Trunk Factors Limiting Gait Function Factors Limiting Gait Function Decreased Activity Tolerance, Decreased Strength,Pain,Poor Balance PT-OP-J Posture/Palpation/Skin Start: 11/20/22 13:51 Freq: Status: Active Protocol: Document 11/20/22 13:52 AM (Rec: 11/20/22 16:37 AM [id number]) Posture Evaluation Position Standing L-Spine Posture Flattened Palpation Assessment Location Low back Palpation Location lumbar paraspinals Palpation Findings Tenderness PT-OP-M Strength Start: 11/20/22 13:51 Freq: Status: Active Protocol: Document 11/20/22 13:52 AM (Rec: 11/20/22 16:37 AM [id number]) Hip Strength Hip Manual Muscle Testing Right Flexion (L2) 3+ Fair+ Extension (S1) 3+ Fair+ Abduction 3 Fair Adduction 4- Good- External Rotation 3+ Fair+ Internal Rotation 3+ Fair+ Left Flexion (L2) 3+ Fair+ Extension (S1) 3+ Fair+ Abduction 3 Fair Adduction 4- Good- External Rotation 3+ Fair+ Internal Rotation 3+ Fair+ Knee Strength Knee Manual Muscle Testing Right Flexion (S2) 4- Good- Extension (L3) 4- Good- Left Flexion (S2) 4- Good- Extension (L3) 4- Good- PT-OP-Q Treatments Start: 11/20/22 13:51 Freq: Status: Active Protocol: Document 12/23/22 16:04 AM (Rec: 12/23/22 16:57 AM [id number]) Cardio Equipment Recumbent Stepper (Sci-Fit) Duration (Minutes) 5 Resistance 4 Seat Position 14 Therapeutic Exercises Supine Exercises Hooklying marching Reps/Minutes x12 ea LE SKTC Supine Exercise Name SKTC Side bilateral Reps/Minutes 2x30 sec BKFO Reps/Minutes 2x5 ea LE Sitting Exercises LAQ Sitting Exercise Name LAQ Side bilateral Resistance 4# Reps/Minutes 2x10 Calf raises Sitting Exercise Name Calf raise with BUE resistance Reps/Minutes 2x10 Standing Exercises Chair squat Equipment Used hi-low table Reps/Minutes 2x5 Comments cues for forward lean with initiation PT-OP-T Assessment and Plan Start: 11/20/22 13:51 Freq: Status: Active Protocol: Document 12/23/22 16:04 AM (Rec: 12/23/22 16:57 AM [id number]) Physical Therapy Assessment Goals HEP Impairment Pt not currently participating in strengthening program. Pt is riding recumbent bike. Care Home Goal (LTG) Pt independent with HEP LTG Duration 01/15/23 Standing Impairment Pt able to stand for 5 min before need to sit secondary to pain. Short Term Goal (STG) Pt able to stand for 10 min before need to sit secondary to pain. 12/18/22: Pt progressing towards goal. Pt able to stand for 6 min before need to sit. STG Duration 12/18/22 Care Home Goal (LTG) Pt able to stand for 20 min before need to sit secondary to pain. LTG Duration 01/15/23 Pain Impairment Pt reports pain at 10/10 at worst. Short Term Goal (STG) Pt with reported pain at 7/10 at worst. 12/18/22: Pt reports pain at 6 -7/10 at the worst. Goal met STG Duration 12/18/22-achieved Nurseryperson Goal (LTG) Pt with reported pain at 4/10 at worst. LTG Duration 01/15/23 Strength Impairment Pt with LE strength grossly at 3+/5. Short Term Goal (STG) Pt with LE strength grossly at 4-/5. 12/18/22: Progressing towards goal. Pt with 3+to 4-/5. STG Duration 12/18/22 Care Home Goal (LTG) Pt with LE grossly at 4/5. LTG Duration 01/15/23 JOSIAH Impairment Pt with Oswestry score of 68 Short Term Goal (STG) Pt with JOSIAH score of 55 12/18/22: GOAL MET-Pt with score of 54 on Oswestry. STG Duration 12/18/22-achieved Nurseryperson Goal (LTG) Pt with JOSIAH Score of 45 LTG Duration 01/15/23 LEFS Impairment Pt with LEFS score of 10/80. Short Term Goal (STG) Pt with LEFS score of 30/80 12/18/22: Pt with score of 17/ 80. Improved, though continues to progress towards goal. STG Duration 12/18/22 Nurseryperson Goal (LTG) Pt with LEFS score of 45/80. LTG Duration 01/15/23 Assessment Summary Assessment Pt with increased fatigue level today, therefore most of session in non-weightbearing. Pt required w/c follow and CGA to/from waiting room and between equipment in the gym today. Pt demonstrates required Min A with transfer from supine -> sit today. Pt would benefit from continued PT to progress strength, balance and mobility to improve tolerance to functional tasks. Physical Therapy Plan Frequency and Duration Frequency of Treatment 2x/Week Duration of treatment (weeks) 8 Plan of Care Start Date 11/20/22 Plan of Care End Date 01/15/23 Therapeutic Interventions Therapeutic Interventions Balance Training,Coordination Training,Gait Training,Home Exercise Program,Joint Mobilizations,Manual Therapy, Neuromuscular Re-education, Patient/Caregiver Education, Self-Care/Home Management,Soft Tissue Mobilization, Therapeutic Activities, Therapeutic Exercises Modalities Cold Pack/Ice Massage,Electric Stimulation,Hot Packs, Ultrasound Next Visit Focus/Plan Next Note Type Treatment Note Next Visit Plan Progress strength, endurance and mobility as tolerated, work on balance
--- NOTE | 2022-12-26 10:53 | PT.OTN ---
Current Diagnoses Other symptoms and signs involving the musculoskeletal system (12/26/22) Arthrodesis status (12/26/22) Physical Therapy Treatment Note PT-OP-A Visit Information Start: 11/20/22 13:51 Freq: Status: Active Protocol: Document 12/26/22 10:02 SW (Rec: 12/26/22 10:53 [id number]) Out-Patient Physical Therapy Visit Information Visit Information Visit Type Treatment Note Visit Start Time 10:03 Visit Stop Time 10:44 Total Visit Minutes 41 Visit Number 9 Number of OCCUPATIONAL THERAPIST REHAB MANAGER Visits 1 Precautions Precautions Fall risk, CGA with ambulation PT-OP-B Current Condition Start: 11/20/22 13:51 Freq: Status: Active Protocol: Document 11/28/22 12:15 AM (Rec: 11/28/22 13:39 AM [id number]) Current Condition History of Current Condition Onset Date Chronic LBP, fusion in Nov Current Complaints low back pain, weakness. History of Current Condition Pt had lumbar fusion L4-5-S1 on January 30, 2022. Pt reports that he continues to have a lot of pain. Pt reports that he feels that he healed up long-term. Pt has appt with surgeon tomorrow. Pt reports symptoms are intermittent. Pt is primarily at home walking with walking sticks. Pt only leaves house for doctors appointments. Pt reports that he has had falls recently. Pt reports that he cannot build strength. Pt reports low back, tailbone and hip pain. Pt uses FWW when ambulating outside of house. Pt reports that he always feels better if he sits down. Pt reports 3 falls in the last month. Pt reports that he has been riding recumbent bike for 30 min with goal to do this 6x/day. Prior Treatments and Tests Pt had MRI. PT-OP-C Subjective Start: 11/20/22 13:51 Freq: Status: Active Protocol: Document 12/26/22 10:02 SW (Rec: 12/26/22 10:53 SW [id number]) OP-PT Subjective Patient Comments Patient Comments Pt reports tired, didn't get a lot of sleep. Pain in the morning, pt reports controlled with pn medication. PT-OP-D Balance Start: 11/20/22 13:51 Freq: Status: Active Protocol: Document 11/20/22 13:52 AM (Rec: 11/20/22 16:37 AM [id number]) Balance Tests Single Limb Standing Single Limb- Right unable to lift LE Single Limb- Left unable to lift LE PT-OP-E Functional Tests Start: 11/20/22 13:51 Freq: Status: Active Protocol: Document 11/20/22 13:52 AM (Rec: 11/20/22 16:37 AM [id number]) Functional Tests 30 Second Sit to Stand Test Score 0 Comments Unable to do without use of UE PT-OP-G Mobility & Gait Start: 11/20/22 13:51 Freq: Status: Active Protocol: Document 11/20/22 13:52 AM (Rec: 11/20/22 16:37 AM [id number]) OP Mobility Evaluation Bed Mobility Supine to and from Sit Min-Mod A with transfer from sit-supine OP Gait Assessment Gait Gait Assistance Required: Independent,Standby Assistance Assistive Devices Assistive Device None,Front Wheeled Walker Gait Deviations General Gait Pattern Antalgic,Flexed Trunk Factors Limiting Gait Function Factors Limiting Gait Function Decreased Activity Tolerance, Decreased Strength,Pain,Poor Balance PT-OP-J Posture/Palpation/Skin Start: 11/20/22 13:51 Freq: Status: Active Protocol: Document 11/20/22 13:52 AM (Rec: 11/20/22 16:37 AM [id number]) Posture Evaluation Position Standing L-Spine Posture Flattened Palpation Assessment Location Low back Palpation Location lumbar paraspinals Palpation Findings Tenderness PT-OP-M Strength Start: 11/20/22 13:51 Freq: Status: Active Protocol: Document 11/20/22 13:52 AM (Rec: 11/20/22 16:37 AM [id number]) Hip Strength Hip Manual Muscle Testing Right Flexion (L2) 3+ Fair+ Extension (S1) 3+ Fair+ Abduction 3 Fair Adduction 4- Good- External Rotation 3+ Fair+ Internal Rotation 3+ Fair+ Left Flexion (L2) 3+ Fair+ Extension (S1) 3+ Fair+ Abduction 3 Fair Adduction 4- Good- External Rotation 3+ Fair+ Internal Rotation 3+ Fair+ Knee Strength Knee Manual Muscle Testing Right Flexion (S2) 4- Good- Extension (L3) 4- Good- Left Flexion (S2) 4- Good- Extension (L3) 4- Good- PT-OP-Q Treatments Start: 11/20/22 13:51 Freq: Status: Active Protocol: Document 12/26/22 10:02 (Rec: 12/26/22 10:53 [id number]) Cardio Equipment Recumbent Stepper (Sci-Fit) Duration (Minutes) 5 Resistance 4 Seat Position 14 Therapeutic Exercises Supine Exercises SKTC Supine Exercise Name SKTC Side bilateral Reps/Minutes 2x30 sec Transverse abdominis iso Supine Exercise Name Added alternating unilateral UE Side bilateral Sitting Exercises Palloff Press Sitting Exercise Name Seated Side bilateral Resistance [place] TB Reps/Minutes 2x10 Seated Marches Reps/Minutes x12 ea LE LAQ Sitting Exercise Name LAQ Side bilateral Resistance 4# Reps/Minutes 2x10 Calf raises Sitting Exercise Name Calf raise with BUE resistance Reps/Minutes 3x10 Standing Exercises Chair squat Standing Exercise Name Attempted, pt too fatigued Equipment Used hi-low table Reps/Minutes x1 Comments cues for forward lean with initiation PT-OP-T Assessment and Plan Start: 11/20/22 13:51 Freq: Status: Active Protocol: Document 12/26/22 10:02 (Rec: 12/26/22 10:53 [id number]) Physical Therapy Assessment Goals HEP Impairment Pt not currently participating in strengthening program. Pt is riding recumbent bike. Speech Pathology Assistant Goal (LTG) Pt independent with HEP LTG Duration 01/15/23 Standing Impairment Pt able to stand for 5 min before need to sit secondary to pain. Short Term Goal (STG) Pt able to stand for 10 min before need to sit secondary to pain. 12/18/22: Pt progressing towards goal. Pt able to stand for 6 min before need to sit. STG Duration 12/18/22 Speech Pathology Assistant Goal (LTG) Pt able to stand for 20 min before need to sit secondary to pain. LTG Duration 01/15/23 Pain Impairment Pt reports pain at 10/10 at worst. Short Term Goal (STG) Pt with reported pain at 7/10 at worst. 12/18/22: Pt reports pain at 6 -7/10 at the worst. Goal met STG Duration 12/18/22-achieved Speech Pathology Assistant Goal (LTG) Pt with reported pain at 4/10 at worst. LTG Duration 01/15/23 Strength Impairment Pt with LE strength grossly at 3+/5. Short Term Goal (STG) Pt with LE strength grossly at 4-/5. 12/18/22: Progressing towards goal. Pt with 3+to 4-/5. STG Duration 12/18/22 Fdc Goal (LTG) Pt with LE grossly at 4/5. LTG Duration 01/15/23 JOSIAH Impairment Pt with Oswestry score of 68 Short Term Goal (STG) Pt with JOSIAH score of 55 12/18/22: GOAL MET-Pt with score of 54 on Oswestry. STG Duration 12/18/22-achieved Speech Pathology Assistant Goal (LTG) Pt with JOSIAH Score of 45 LTG Duration 01/15/23 LEFS Impairment Pt with LEFS score of 10/80. Short Term Goal (STG) Pt with LEFS score of 30/80 12/18/22: Pt with score of 17/ 80. Improved, though continues to progress towards goal. STG Duration 12/18/22 Fdc Goal (LTG) Pt with LEFS score of 45/80. LTG Duration 01/15/23 Assessment Summary Assessment Low activity tolerance today, pt quick to fatigue, pt reported lack of sleep last night. Ye with bed mobility and sit to stand. Educated patient on log roll. Plan to assess pt tolerance next session and progress as able. Physical Therapy Plan Frequency and Duration Frequency of Treatment 2x/Week Duration of treatment (weeks) 8 Plan of Care Start Date 11/20/22 Plan of Care End Date 01/15/23 Therapeutic Interventions Therapeutic Interventions Balance Training,Coordination Training,Gait Training,Home Exercise Program,Joint Mobilizations,Manual Therapy, Neuromuscular Re-education, Patient/Caregiver Education, Self-Care/Home Management,Soft Tissue Mobilization, Therapeutic Activities, Therapeutic Exercises Modalities Cold Pack/Ice Massage,Electric Stimulation,Hot Packs, Ultrasound Next Visit Focus/Plan Next Note Type Treatment Note Next Visit Plan Progress strength, endurance and mobility as tolerated, work on balance
--- NOTE | 2022-12-30 15:18 | PT.OTN ---
Current Diagnoses Other symptoms and signs involving the musculoskeletal system (12/30/22) Arthrodesis status (12/30/22) Physical Therapy Treatment Note PT-OP-A Visit Information Start: 11/20/22 13:51 Freq: Status: Active Protocol: Document 12/30/22 15:18 AM (Rec: 12/30/22 17:01 AM [id number]) Out-Patient Physical Therapy Visit Information Visit Information Visit Type Treatment Note Visit Start Time 15:18 Visit Stop Time 16:01 Total Visit Minutes 43 Visit Number 10 Precautions Precautions Fall risk, CGA with ambulation PT-OP-B Current Condition Start: 11/20/22 13:51 Freq: Status: Active Protocol: Document 11/28/22 12:15 AM (Rec: 11/28/22 13:39 AM [id number]) Current Condition History of Current Condition Onset Date Chronic LBP, fusion in Nov Current Complaints low back pain, weakness. History of Current Condition Pt had lumbar fusion L4-5-S1 on January 30, 2022. Pt reports that he continues to have a lot of pain. Pt reports that he feels that he healed up assisted. Pt has appt with surgeon tomorrow. Pt reports symptoms are intermittent. Pt is primarily at home walking with walking sticks. Pt only leaves house for doctors appointments. Pt reports that he has had falls recently. Pt reports that he cannot build strength. Pt reports low back, tailbone and hip pain. Pt uses FWW when ambulating outside of house. Pt reports that he always feels better if he sits down. Pt reports 3 falls in the last month. Pt reports that he has been riding recumbent bike for 30 min with goal to do this 6x/day. Prior Treatments and Tests Pt had MRI. PT-OP-C Subjective Start: 11/20/22 13:51 Freq: Status: Active Protocol: Document 12/30/22 15:18 AM (Rec: 12/30/22 17:01 AM [id number]) OP-PT Subjective Patient Comments Patient Comments Pt reports that he had a day recently when woke up from a nap and he did not have any back pain. Pt reports that he did still have some LE weakness. Pt reports this gave him hope. Pt reports that he gets an injection at his hip tomorrow. PT-OP-D Balance Start: 11/20/22 13:51 Freq: Status: Active Protocol: Document 11/20/22 13:52 AM (Rec: 11/20/22 16:37 AM [id number]) Balance Tests Single Limb Standing Single Limb- Right unable to lift LE Single Limb- Left unable to lift LE PT-OP-E Functional Tests Start: 11/20/22 13:51 Freq: Status: Active Protocol: Document 11/20/22 13:52 AM (Rec: 11/20/22 16:37 AM [id number]) Functional Tests 30 Second Sit to Stand Test Score 0 Comments Unable to do without use of UE PT-OP-G Mobility & Gait Start: 11/20/22 13:51 Freq: Status: Active Protocol: Document 11/20/22 13:52 AM (Rec: 11/20/22 16:37 AM [id number]) OP Mobility Evaluation Bed Mobility Supine to and from Sit Min-Mod A with transfer from sit-supine OP Gait Assessment Gait Gait Assistance Required: Independent,Standby Assistance Assistive Devices Assistive Device None,Front Wheeled Walker Gait Deviations General Gait Pattern Antalgic,Flexed Trunk Factors Limiting Gait Function Factors Limiting Gait Function Decreased Activity Tolerance, Decreased Strength,Pain,Poor Balance PT-OP-J Posture/Palpation/Skin Start: 11/20/22 13:51 Freq: Status: Active Protocol: Document 11/20/22 13:52 AM (Rec: 11/20/22 16:37 AM [id number]) Posture Evaluation Position Standing L-Spine Posture Flattened Palpation Assessment Location Low back Palpation Location lumbar paraspinals Palpation Findings Tenderness PT-OP-M Strength Start: 11/20/22 13:51 Freq: Status: Active Protocol: Document 11/20/22 13:52 AM (Rec: 11/20/22 16:37 AM [id number]) Hip Strength Hip Manual Muscle Testing Right Flexion (L2) 3+ Fair+ Extension (S1) 3+ Fair+ Abduction 3 Fair Adduction 4- Good- External Rotation 3+ Fair+ Internal Rotation 3+ Fair+ Left Flexion (L2) 3+ Fair+ Extension (S1) 3+ Fair+ Abduction 3 Fair Adduction 4- Good- External Rotation 3+ Fair+ Internal Rotation 3+ Fair+ Knee Strength Knee Manual Muscle Testing Right Flexion (S2) 4- Good- Extension (L3) 4- Good- Left Flexion (S2) 4- Good- Extension (L3) 4- Good- PT-OP-Q Treatments Start: 11/20/22 13:51 Freq: Status: Active Protocol: Document 12/30/22 15:18 AM (Rec: 12/30/22 17:01 AM [id number]) Cardio Equipment Recumbent Stepper (Sci-Fit) Duration (Minutes) 5 Resistance 4.5 Seat Position 14 Therapeutic Exercises Sitting Exercises Palloff Press Sitting Exercise Name Standing in // bars. PT holding end of TB. Side bilateral Resistance [place] TB Reps/Minutes 2x10 Standing Exercises Floor tap Equipment Used holding light blue swissball Reps/Minutes 1x4, 1x3; chair behind pt in case of lossed control Pallof press Resistance [place] TB with 2# weight Reps/Minutes 2x10 ea Stationary standing Standing Exercise Name Stationary standing no UE support Reps/Minutes 3 min 30 sec before need for rest break Chair squat Standing Exercise Name Chair+ foam pad Equipment Used hi-low table Reps/Minutes x1 Comments with use of UE in // bars Standing march Side bilateral Reps/Minutes x10 Comments cues for abdominal control Calf raises Reps/Minutes 2x10 Comments cues for decreased UE support PT-OP-T Assessment and Plan Start: 11/20/22 13:51 Freq: Status: Active Protocol: Document 12/30/22 15:18 AM (Rec: 12/30/22 17:01 AM [id number]) Physical Therapy Assessment Goals HEP Impairment Pt not currently participating in strengthening program. Pt is riding recumbent bike. Mcfp Goal (LTG) Pt independent with HEP LTG Duration 01/15/23 Standing Impairment Pt able to stand for 5 min before need to sit secondary to pain. Short Term Goal (STG) Pt able to stand for 10 min before need to sit secondary to pain. 12/18/22: Pt progressing towards goal. Pt able to stand for 6 min before need to sit. STG Duration 12/18/22 Mcfp Goal (LTG) Pt able to stand for 20 min before need to sit secondary to pain. LTG Duration 01/15/23 Pain Impairment Pt reports pain at 10/10 at worst. Short Term Goal (STG) Pt with reported pain at 7/10 at worst. 12/18/22: Pt reports pain at 6 -7/10 at the worst. Goal met STG Duration 12/18/22-achieved Mcfp Goal (LTG) Pt with reported pain at 4/10 at worst. LTG Duration 01/15/23 Strength Impairment Pt with LE strength grossly at 3+/5. Short Term Goal (STG) Pt with LE strength grossly at 4-/5. 12/18/22: Progressing towards goal. Pt with 3+to 4-/5. STG Duration 12/18/22 Mcfp Goal (LTG) Pt with LE grossly at 4/5. LTG Duration 01/15/23 JOSIAH Impairment Pt with Oswestry score of 68 Short Term Goal (STG) Pt with JOSIAH score of 55 12/18/22: GOAL MET-Pt with score of 54 on Oswestry. STG Duration 12/18/22-achieved Club Manager Goal (LTG) Pt with JOSIAH Score of 45 LTG Duration 01/15/23 LEFS Impairment Pt with LEFS score of 10/80. Short Term Goal (STG) Pt with LEFS score of 30/80 12/18/22: Pt with score of 17/ 80. Improved, though continues to progress towards goal. STG Duration 12/18/22 Club Manager Goal (LTG) Pt with LEFS score of 45/80. LTG Duration 01/15/23 Assessment Summary Assessment Pt required CGA to/from waiting room and 1 rest break with ambulation back to waiting room at end of tx session today. Pt demonstrates continued quick fatigue of LE , requiring frequenct rest breaks between exercise sets. Pt would benefit from continued PT to progress strength/balance as tolerated. Physical Therapy Plan Frequency and Duration Frequency of Treatment 2x/Week Duration of treatment (weeks) 8 Plan of Care Start Date 11/20/22 Plan of Care End Date 01/15/23 Therapeutic Interventions Therapeutic Interventions Balance Training,Coordination Training,Gait Training,Home Exercise Program,Joint Mobilizations,Manual Therapy, Neuromuscular Re-education, Patient/Caregiver Education, Self-Care/Home Management,Soft Tissue Mobilization, Therapeutic Activities, Therapeutic Exercises Modalities Cold Pack/Ice Massage,Electric Stimulation,Hot Packs, Ultrasound Next Visit Focus/Plan Next Note Type Treatment Note Next Visit Plan Progress strength, endurance and mobility as tolerated, work on balance
--- NOTE | 2023-01-02 12:07 | PT.OTN ---
Current Diagnoses Other symptoms and signs involving the musculoskeletal system (01/02/23) Arthrodesis status (01/02/23) Physical Therapy Treatment Note PT-OP-A Visit Information Start: 11/20/22 13:51 Freq: Status: Active Protocol: Document 01/02/23 10:59 SW (Rec: 01/02/23 12:06 [id number]) Out-Patient Physical Therapy Visit Information Visit Information Visit Type Treatment Note Visit Start Time 11:00 Visit Stop Time 11:43 Total Visit Minutes 43 Visit Number 11 Number of HEADLIGHT ASSEMBLER Visits 1 Precautions Precautions Fall risk, CGA with ambulation PT-OP-B Current Condition Start: 11/20/22 13:51 Freq: Status: Active Protocol: Document 11/28/22 12:15 AM (Rec: 11/28/22 13:39 AM [id number]) Current Condition History of Current Condition Onset Date Chronic LBP, fusion in Nov Current Complaints low back pain, weakness. History of Current Condition Pt had lumbar fusion L4-5-S1 on January 30, 2022. Pt reports that he continues to have a lot of pain. Pt reports that he feels that he healed up [facility]. Pt has appt with surgeon tomorrow. Pt reports symptoms are intermittent. Pt is primarily at home walking with walking sticks. Pt only leaves house for doctors appointments. Pt reports that he has had falls recently. Pt reports that he cannot build strength. Pt reports low back, tailbone and hip pain. Pt uses FWW when ambulating outside of house. Pt reports that he always feels better if he sits down. Pt reports 3 falls in the last month. Pt reports that he has been riding recumbent bike for 30 min with goal to do this 6x/day. Prior Treatments and Tests Pt had MRI. PT-OP-C Subjective Start: 11/20/22 13:51 Freq: Status: Active Protocol: Document 01/02/23 10:59 SW (Rec: 01/02/23 12:06 [id number]) OP-PT Subjective Patient Comments Patient Comments Pt reports he had an injection , and it feels great. Pt reported a controlled guided collapse of LE walking up steps into house after last session. PT-OP-D Balance Start: 11/20/22 13:51 Freq: Status: Active Protocol: Document 11/20/22 13:52 AM (Rec: 11/20/22 16:37 AM [id number]) Balance Tests Single Limb Standing Single Limb- Right unable to lift LE Single Limb- Left unable to lift LE PT-OP-E Functional Tests Start: 11/20/22 13:51 Freq: Status: Active Protocol: Document 11/20/22 13:52 AM (Rec: 11/20/22 16:37 AM [id number]) Functional Tests 30 Second Sit to Stand Test Score 0 Comments Unable to do without use of UE PT-OP-G Mobility & Gait Start: 11/20/22 13:51 Freq: Status: Active Protocol: Document 11/20/22 13:52 AM (Rec: 11/20/22 16:37 AM [id number]) OP Mobility Evaluation Bed Mobility Supine to and from Sit Min-Mod A with transfer from sit-supine OP Gait Assessment Gait Gait Assistance Required: Independent,Standby Assistance Assistive Devices Assistive Device None,Front Wheeled Walker Gait Deviations General Gait Pattern Antalgic,Flexed Trunk Factors Limiting Gait Function Factors Limiting Gait Function Decreased Activity Tolerance, Decreased Strength,Pain,Poor Balance PT-OP-J Posture/Palpation/Skin Start: 11/20/22 13:51 Freq: Status: Active Protocol: Document 11/20/22 13:52 AM (Rec: 11/20/22 16:37 AM [id number]) Posture Evaluation Position Standing L-Spine Posture Flattened Palpation Assessment Location Low back Palpation Location lumbar paraspinals Palpation Findings Tenderness PT-OP-M Strength Start: 11/20/22 13:51 Freq: Status: Active Protocol: Document 11/20/22 13:52 AM (Rec: 11/20/22 16:37 AM [id number]) Hip Strength Hip Manual Muscle Testing Right Flexion (L2) 3+ Fair+ Extension (S1) 3+ Fair+ Abduction 3 Fair Adduction 4- Good- External Rotation 3+ Fair+ Internal Rotation 3+ Fair+ Left Flexion (L2) 3+ Fair+ Extension (S1) 3+ Fair+ Abduction 3 Fair Adduction 4- Good- External Rotation 3+ Fair+ Internal Rotation 3+ Fair+ Knee Strength Knee Manual Muscle Testing Right Flexion (S2) 4- Good- Extension (L3) 4- Good- Left Flexion (S2) 4- Good- Extension (L3) 4- Good- PT-OP-Q Treatments Start: 11/20/22 13:51 Freq: Status: Active Protocol: Document 01/02/23 10:59 (Rec: 01/02/23 12:06 [id number]) Cardio Equipment Recumbent Stepper (Sci-Fit) Duration (Minutes) 5 Resistance 4.5 Seat Position 14 Therapeutic Exercises Standing Exercises Pallof press Resistance [place] TB with 2# weight Reps/Minutes 2x10 ea Stationary standing Standing Exercise Name Stationary standing no UE support Reps/Minutes 1'15 Chair squat Standing Exercise Name High low table Equipment Used hi-low table Reps/Minutes 2 x 5 Comments GGA, UE support prn Standing march Side bilateral Reps/Minutes x10 Comments cues for abdominal control Calf raises Reps/Minutes x10 standing x 10 seated w/ UE resistance Comments cues for decreased UE support Self-Care/Home Management Treatment Education Patient Education Home Exercise Program,Safety Other Education Discussed importance of monitoring level of fatigue during exercises and not to overdo it with pn relief from injection for safety and fall prevention. PT-OP-T Assessment and Plan Start: 11/20/22 13:51 Freq: Status: Active Protocol: Document 01/02/23 10:59 (Rec: 01/02/23 12:06 [id number]) Physical Therapy Assessment Goals HEP Impairment Pt not currently participating in strengthening program. Pt is riding recumbent bike. Retirement Goal (LTG) Pt independent with HEP LTG Duration 01/15/23 Standing Impairment Pt able to stand for 5 min before need to sit secondary to pain. Short Term Goal (STG) Pt able to stand for 10 min before need to sit secondary to pain. 12/18/22: Pt progressing towards goal. Pt able to stand for 6 min before need to sit. STG Duration 12/18/22 Retirement Goal (LTG) Pt able to stand for 20 min before need to sit secondary to pain. LTG Duration 01/15/23 Pain Impairment Pt reports pain at 10/10 at worst. Short Term Goal (STG) Pt with reported pain at 7/10 at worst. 12/18/22: Pt reports pain at 6 -7/10 at the worst. Goal met STG Duration 12/18/22-achieved Manager Trade Marketing Goal (LTG) Pt with reported pain at 4/10 at worst. LTG Duration 01/15/23 Strength Impairment Pt with LE strength grossly at 3+/5. Short Term Goal (STG) Pt with LE strength grossly at 4-/5. 12/18/22: Progressing towards goal. Pt with 3+to 4-/5. STG Duration 12/18/22 Retirement Goal (LTG) Pt with LE grossly at 4/5. LTG Duration 01/15/23 JOSIAH Impairment Pt with Oswestry score of 68 Short Term Goal (STG) Pt with JOSIAH score of 55 12/18/22: GOAL MET-Pt with score of 54 on Oswestry. STG Duration 12/18/22-achieved Retirement Goal (LTG) Pt with JOSIAH Score of 45 LTG Duration 01/15/23 LEFS Impairment Pt with LEFS score of 10/80. Short Term Goal (STG) Pt with LEFS score of 30/80 12/18/22: Pt with score of 17/ 80. Improved, though continues to progress towards goal. STG Duration 12/18/22 Manager Trade Marketing Goal (LTG) Pt with LEFS score of 45/80. LTG Duration 01/15/23 Assessment Summary Assessment Regressed exercises today d/t pt fatigue and difficulty with ADLs. Pt ambulated into session today with decreased foot clearance, scuffing shoes on floor, educated pt gait mechanics. Plan to assess pt LE fatigue level post today's session and progress as tolerated. Physical Therapy Plan Frequency and Duration Frequency of Treatment 2x/Week Duration of treatment (weeks) 8 Plan of Care Start Date 11/20/22 Plan of Care End Date 01/15/23 Therapeutic Interventions Therapeutic Interventions Balance Training,Coordination Training,Gait Training,Home Exercise Program,Joint Mobilizations,Manual Therapy, Neuromuscular Re-education, Patient/Caregiver Education, Self-Care/Home Management,Soft Tissue Mobilization, Therapeutic Activities, Therapeutic Exercises Modalities Cold Pack/Ice Massage,Electric Stimulation,Hot Packs, Ultrasound Next Visit Focus/Plan Next Note Type Treatment Note Next Visit Plan Progress strength, endurance and mobility as tolerated, work on balance
--- NOTE | 2023-01-06 15:17 | PT.OTN ---
Current Diagnoses Other symptoms and signs involving the musculoskeletal system (01/06/23) Arthrodesis status (01/06/23) Physical Therapy Treatment Note PT-OP-A Visit Information Start: 11/20/22 13:51 Freq: Status: Active Protocol: Document 01/06/23 15:17 AM (Rec: 01/06/23 16:07 AM [id number]) Out-Patient Physical Therapy Visit Information Visit Information Visit Type Treatment Note Visit Start Time 15:17 Visit Stop Time 16:05 Total Visit Minutes 48 Visit Number 12 PT-OP-B Current Condition Start: 11/20/22 13:51 Freq: Status: Active Protocol: Document 11/28/22 12:15 AM (Rec: 11/28/22 13:39 AM [id number]) Current Condition History of Current Condition Onset Date Chronic LBP, fusion in Nov Current Complaints low back pain, weakness. History of Current Condition Pt had lumbar fusion L4-5-S1 on January 30, 2022. Pt reports that he continues to have a lot of pain. Pt reports that he feels that he healed up custodial. Pt has appt with surgeon tomorrow. Pt reports symptoms are intermittent. Pt is primarily at home walking with walking sticks. Pt only leaves house for doctors appointments. Pt reports that he has had falls recently. Pt reports that he cannot build strength. Pt reports low back, tailbone and hip pain. Pt uses FWW when ambulating outside of house. Pt reports that he always feels better if he sits down. Pt reports 3 falls in the last month. Pt reports that he has been riding recumbent bike for 30 min with goal to do this 6x/day. Prior Treatments and Tests Pt had MRI. PT-OP-C Subjective Start: 11/20/22 13:51 Freq: Status: Active Protocol: Document 01/06/23 15:17 AM (Rec: 01/06/23 16:07 AM [id number]) OP-PT Subjective Patient Comments Patient Comments Pt reports that his hip has felt better since having the injection. Pt reports that he strained a muscle at the R side of his low back. Pt was trying to move his recumbent bike. PT-OP-D Balance Start: 11/20/22 13:51 Freq: Status: Active Protocol: Document 11/20/22 13:52 AM (Rec: 11/20/22 16:37 AM [id number]) Balance Tests Single Limb Standing Single Limb- Right unable to lift LE Single Limb- Left unable to lift LE PT-OP-E Functional Tests Start: 11/20/22 13:51 Freq: Status: Active Protocol: Document 11/20/22 13:52 AM (Rec: 11/20/22 16:37 AM [id number]) Functional Tests 30 Second Sit to Stand Test Score 0 Comments Unable to do without use of UE PT-OP-G Mobility & Gait Start: 11/20/22 13:51 Freq: Status: Active Protocol: Document 11/20/22 13:52 AM (Rec: 11/20/22 16:37 AM [id number]) OP Mobility Evaluation Bed Mobility Supine to and from Sit Min-Mod A with transfer from sit-supine OP Gait Assessment Gait Gait Assistance Required: Independent,Standby Assistance Assistive Devices Assistive Device None,Front Wheeled Walker Gait Deviations General Gait Pattern Antalgic,Flexed Trunk Factors Limiting Gait Function Factors Limiting Gait Function Decreased Activity Tolerance, Decreased Strength,Pain,Poor Balance PT-OP-J Posture/Palpation/Skin Start: 11/20/22 13:51 Freq: Status: Active Protocol: Document 11/20/22 13:52 AM (Rec: 11/20/22 16:37 AM [id number]) Posture Evaluation Position Standing L-Spine Posture Flattened Palpation Assessment Location Low back Palpation Location lumbar paraspinals Palpation Findings Tenderness PT-OP-M Strength Start: 11/20/22 13:51 Freq: Status: Active Protocol: Document 11/20/22 13:52 AM (Rec: 11/20/22 16:37 AM [id number]) Hip Strength Hip Manual Muscle Testing Right Flexion (L2) 3+ Fair+ Extension (S1) 3+ Fair+ Abduction 3 Fair Adduction 4- Good- External Rotation 3+ Fair+ Internal Rotation 3+ Fair+ Left Flexion (L2) 3+ Fair+ Extension (S1) 3+ Fair+ Abduction 3 Fair Adduction 4- Good- External Rotation 3+ Fair+ Internal Rotation 3+ Fair+ Knee Strength Knee Manual Muscle Testing Right Flexion (S2) 4- Good- Extension (L3) 4- Good- Left Flexion (S2) 4- Good- Extension (L3) 4- Good- PT-OP-Q Treatments Start: 11/20/22 13:51 Freq: Status: Active Protocol: Document 01/06/23 15:17 AM (Rec: 01/06/23 16:07 AM [id number]) Cardio Equipment Recumbent Stepper (Sci-Fit) Duration (Minutes) 5 Resistance 4.5 Seat Position 14 Therapeutic Exercises Supine Exercises Hooklying marching Reps/Minutes x10 ea LE SKTC Side bilateral Reps/Minutes 2x30 sec BKFO Side bilateral Reps/Minutes x10 ea LE Comments cues for lumbopelvic control Sidelying Exercises Clamshells Side bilateral Reps/Minutes x10 Comments cues for abdominal control Standing Exercises Chair squat Standing Exercise Name High low table Equipment Used hi-low table Reps/Minutes 2 x 5 Comments GGA, UE support prn Manual Therapy Treatment Soft Tissue Mobilization R QL Body Location R QL Mobilization Type Strumming Intensity/Depth Moderate Comments L sidelying PT-OP-T Assessment and Plan Start: 11/20/22 13:51 Freq: Status: Active Protocol: Document 01/06/23 15:17 AM (Rec: 01/06/23 16:07 AM [id number]) Physical Therapy Assessment Goals HEP Impairment Pt not currently participating in strengthening program. Pt is riding recumbent bike. Waiter/Waitress Counter Goal (LTG) Pt independent with HEP LTG Duration 01/15/23 Standing Impairment Pt able to stand for 5 min before need to sit secondary to pain. Short Term Goal (STG) Pt able to stand for 10 min before need to sit secondary to pain. 12/18/22: Pt progressing towards goal. Pt able to stand for 6 min before need to sit. STG Duration 12/18/22 Waiter/Waitress Counter Goal (LTG) Pt able to stand for 20 min before need to sit secondary to pain. LTG Duration 01/15/23 Pain Impairment Pt reports pain at 10/10 at worst. Short Term Goal (STG) Pt with reported pain at 7/10 at worst. 12/18/22: Pt reports pain at 6 -7/10 at the worst. Goal met STG Duration 12/18/22-achieved Detention Goal (LTG) Pt with reported pain at 4/10 at worst. LTG Duration 01/15/23 Strength Impairment Pt with LE strength grossly at 3+/5. Short Term Goal (STG) Pt with LE strength grossly at 4-/5. 12/18/22: Progressing towards goal. Pt with 3+to 4-/5. STG Duration 12/18/22 Waiter/Waitress Counter Goal (LTG) Pt with LE grossly at 4/5. LTG Duration 01/15/23 JOSIAH Impairment Pt with Oswestry score of 68 Short Term Goal (STG) Pt with JOSIAH score of 55 12/18/22: GOAL MET-Pt with score of 54 on Oswestry. STG Duration 12/18/22-achieved Waiter/Waitress Counter Goal (LTG) Pt with JOSIAH Score of 45 LTG Duration 01/15/23 LEFS Impairment Pt with LEFS score of 10/80. Short Term Goal (STG) Pt with LEFS score of 30/80 12/18/22: Pt with score of 17/ 80. Improved, though continues to progress towards goal. STG Duration 12/18/22 Waiter/Waitress Counter Goal (LTG) Pt with LEFS score of 45/80. LTG Duration 01/15/23 Assessment Summary Assessment Pt reported that he did not feel to fatigued after last session and that it was a good amount of work load. Pt with tenderness along R QL. Pt reported decrease in symptoms following of R QL. Pt continues to demonstrate weakness at trunk muscles, with cueing required for lumbopelvic mobility. Pt required rest break and CGA to ambulate to waiting room following PT session today. Pt would benefit from continued PT to progress functional strength as tolerated. Physical Therapy Plan Frequency and Duration Frequency of Treatment 2x/Week Duration of treatment (weeks) 8 Plan of Care Start Date 11/20/22 Plan of Care End Date 01/15/23 Therapeutic Interventions Therapeutic Interventions Balance Training,Coordination Training,Gait Training,Home Exercise Program,Joint Mobilizations,Manual Therapy, Neuromuscular Re-education, Patient/Caregiver Education, Self-Care/Home Management,Soft Tissue Mobilization, Therapeutic Activities, Therapeutic Exercises Modalities Cold Pack/Ice Massage,Electric Stimulation,Hot Packs, Ultrasound Next Visit Focus/Plan Next Note Type Treatment Note Next Visit Plan Progress strength, endurance and mobility as tolerated, work on balance
--- NOTE | 2023-01-09 11:35 | PT.OTN ---
Current Diagnoses Other symptoms and signs involving the musculoskeletal system (01/09/23) Arthrodesis status (01/09/23) Physical Therapy Treatment Note PT-OP-A Visit Information Start: 11/20/22 13:51 Freq: Status: Active Protocol: Document 01/09/23 11:35 AM (Rec: 01/09/23 17:28 AM [id number]) Out-Patient Physical Therapy Visit Information Visit Information Visit Type Treatment Note Visit Start Time 11:35 Visit Stop Time 12:00 Total Visit Minutes 40 Visit Number 13 PT-OP-B Current Condition Start: 11/20/22 13:51 Freq: Status: Active Protocol: Document 11/28/22 12:15 AM (Rec: 11/28/22 13:39 AM [id number]) Current Condition History of Current Condition Onset Date Chronic LBP, fusion in Nov Current Complaints low back pain, weakness. History of Current Condition Pt had lumbar fusion L4-5-S1 on January 30, 2022. Pt reports that he continues to have a lot of pain. Pt reports that he feels that he healed up residential. Pt has appt with surgeon tomorrow. Pt reports symptoms are intermittent. Pt is primarily at home walking with walking sticks. Pt only leaves house for doctors appointments. Pt reports that he has had falls recently. Pt reports that he cannot build strength. Pt reports low back, tailbone and hip pain. Pt uses FWW when ambulating outside of house. Pt reports that he always feels better if he sits down. Pt reports 3 falls in the last month. Pt reports that he has been riding recumbent bike for 30 min with goal to do this 6x/day. Prior Treatments and Tests Pt had MRI. PT-OP-C Subjective Start: 11/20/22 13:51 Freq: Status: Active Protocol: Document 01/09/23 11:35 AM (Rec: 01/09/23 17:28 AM [id number]) OP-PT Subjective Patient Comments Patient Comments Pt reports that his legs feel weak today, though he is unsure why. Pt reports that he continues to be frustrated with the weakness at his LE. Pt reports that he will see his surgeon next week. PT-OP-D Balance Start: 11/20/22 13:51 Freq: Status: Active Protocol: Document 11/20/22 13:52 AM (Rec: 11/20/22 16:37 AM [id number]) Balance Tests Single Limb Standing Single Limb- Right unable to lift LE Single Limb- Left unable to lift LE PT-OP-E Functional Tests Start: 11/20/22 13:51 Freq: Status: Active Protocol: Document 11/20/22 13:52 AM (Rec: 11/20/22 16:37 AM [id number]) Functional Tests 30 Second Sit to Stand Test Score 0 Comments Unable to do without use of UE PT-OP-G Mobility & Gait Start: 11/20/22 13:51 Freq: Status: Active Protocol: Document 11/20/22 13:52 AM (Rec: 11/20/22 16:37 AM [id number]) OP Mobility Evaluation Bed Mobility Supine to and from Sit Min-Mod A with transfer from sit-supine OP Gait Assessment Gait Gait Assistance Required: Independent,Standby Assistance Assistive Devices Assistive Device None,Front Wheeled Walker Gait Deviations General Gait Pattern Antalgic,Flexed Trunk Factors Limiting Gait Function Factors Limiting Gait Function Decreased Activity Tolerance, Decreased Strength,Pain,Poor Balance PT-OP-J Posture/Palpation/Skin Start: 11/20/22 13:51 Freq: Status: Active Protocol: Document 11/20/22 13:52 AM (Rec: 11/20/22 16:37 AM [id number]) Posture Evaluation Position Standing L-Spine Posture Flattened Palpation Assessment Location Low back Palpation Location lumbar paraspinals Palpation Findings Tenderness PT-OP-M Strength Start: 11/20/22 13:51 Freq: Status: Active Protocol: Document 11/20/22 13:52 AM (Rec: 11/20/22 16:37 AM [id number]) Hip Strength Hip Manual Muscle Testing Right Flexion (L2) 3+ Fair+ Extension (S1) 3+ Fair+ Abduction 3 Fair Adduction 4- Good- External Rotation 3+ Fair+ Internal Rotation 3+ Fair+ Left Flexion (L2) 3+ Fair+ Extension (S1) 3+ Fair+ Abduction 3 Fair Adduction 4- Good- External Rotation 3+ Fair+ Internal Rotation 3+ Fair+ Knee Strength Knee Manual Muscle Testing Right Flexion (S2) 4- Good- Extension (L3) 4- Good- Left Flexion (S2) 4- Good- Extension (L3) 4- Good- PT-OP-Q Treatments Start: 11/20/22 13:51 Freq: Status: Active Protocol: Document 01/09/23 11:35 AM (Rec: 01/09/23 17:28 AM [id number]) Cardio Equipment Recumbent Stepper (Sci-Fit) Duration (Minutes) 5 Resistance 4.5 Seat Position 14 Gym Equipment Shuttle Recovery Bilateral squat Resistance 50# (2 navy) Reps/Time 2x10 Therapeutic Exercises Supine Exercises Hooklying marching Reps/Minutes 2x10 ea LE Lower abdominal cane pull down Resistance purple TB Equipment Used dowel Reps/Minutes 2x10 SKTC Side bilateral Reps/Minutes 2x30 sec BKFO Side bilateral Reps/Minutes x10 ea LE Comments cues for lumbopelvic control Standing Exercises Chair squat Standing Exercise Name High low table Equipment Used hi-low table Reps/Minutes 2 x 3 Comments GGA, UE support prn PT-OP-T Assessment and Plan Start: 11/20/22 13:51 Freq: Status: Active Protocol: Document 01/09/23 11:35 AM (Rec: 01/09/23 17:28 AM [id number]) Physical Therapy Assessment Goals HEP Impairment Pt not currently participating in strengthening program. Pt is riding recumbent bike. Group Home Goal (LTG) Pt independent with HEP LTG Duration 01/15/23 Standing Impairment Pt able to stand for 5 min before need to sit secondary to pain. Short Term Goal (STG) Pt able to stand for 10 min before need to sit secondary to pain. 12/18/22: Pt progressing towards goal. Pt able to stand for 6 min before need to sit. STG Duration 12/18/22 Software Packaging Engineer Goal (LTG) Pt able to stand for 20 min before need to sit secondary to pain. LTG Duration 01/15/23 Pain Impairment Pt reports pain at 10/10 at worst. Short Term Goal (STG) Pt with reported pain at 7/10 at worst. 12/18/22: Pt reports pain at 6 -7/10 at the worst. Goal met STG Duration 12/18/22-achieved Group Home Goal (LTG) Pt with reported pain at 4/10 at worst. LTG Duration 01/15/23 Strength Impairment Pt with LE strength grossly at 3+/5. Short Term Goal (STG) Pt with LE strength grossly at 4-/5. 12/18/22: Progressing towards goal. Pt with 3+to 4-/5. STG Duration 12/18/22 Software Packaging Engineer Goal (LTG) Pt with LE grossly at 4/5. LTG Duration 01/15/23 JOSIAH Impairment Pt with Oswestry score of 68 Short Term Goal (STG) Pt with JOSIAH score of 55 12/18/22: GOAL MET-Pt with score of 54 on Oswestry. STG Duration 12/18/22-achieved Software Packaging Engineer Goal (LTG) Pt with JOSIAH Score of 45 LTG Duration 01/15/23 LEFS Impairment Pt with LEFS score of 10/80. Short Term Goal (STG) Pt with LEFS score of 30/80 12/18/22: Pt with score of 17/ 80. Improved, though continues to progress towards goal. STG Duration 12/18/22 Group Home Goal (LTG) Pt with LEFS score of 45/80. LTG Duration 01/15/23 Assessment Summary Assessment Pt continues to be limited in standing exercise due to reports of LE fatigue. Pt requires cueing for lumbopelvic stabilization during all exercise. Pt with good tolerance to shuttle squats for LE strengthening, though challenged with STS squats. Pt would benefit from continued PT to progress functional strength and mobility as tolerated. Physical Therapy Plan Frequency and Duration Frequency of Treatment 2x/Week Duration of treatment (weeks) 8 Plan of Care Start Date 11/20/22 Plan of Care End Date 01/15/23 Therapeutic Interventions Therapeutic Interventions Balance Training,Coordination Training,Gait Training,Home Exercise Program,Joint Mobilizations,Manual Therapy, Neuromuscular Re-education, Patient/Caregiver Education, Self-Care/Home Management,Soft Tissue Mobilization, Therapeutic Activities, Therapeutic Exercises Modalities Cold Pack/Ice Massage,Electric Stimulation,Hot Packs, Ultrasound Next Visit Focus/Plan Next Note Type Progress Note Next Visit Plan Progress strength, endurance and mobility as tolerated, work on balance
--- NOTE | 2023-01-13 15:20 | PT.OPPOC ---
Addendum entered and electronically signed by Susie Espinal, PT 01/13/23 16:30: Improved Oswestry score from 68 at IE to 48 on 01/13/23 Original Note: Physical, Occupational & Speech Therapy At [facility] Current Diagnoses Other symptoms and signs involving the musculoskeletal system (01/13/23) Arthrodesis status (01/13/23) Visit Care Team Role Provider Type Ronald Felipe MD Attending Provider Physician Family Provider Primary Care Provider Referring Provider Specialty: Internal Medicine Pediatrics Address: [address] [place] [address], [id number] Email: [email or web address] Plan Of Care PT-OP-T Assessment and Plan Start: 11/20/22 13:51 Freq: Status: Active Protocol: Document 01/13/23 15:20 AM (Rec: 01/13/23 16:24 AM [id number]) Physical Therapy Assessment Goals HEP Impairment Pt not currently participating in strengthening program. Pt is riding recumbent bike. Prison Goal (LTG) Pt independent with HEP LTG Duration 02/12/23 Standing Impairment Pt able to stand for 5 min before need to sit secondary to pain. Short Term Goal (STG) Pt able to stand for 10 min before need to sit secondary to pain. 12/18/22: Pt progressing towards goal. Pt able to stand for 6 min before need to sit. STG Duration 12/18/22 Adaptive Physical Educator Goal (LTG) Pt able to stand for 20 min before need to sit secondary to pain. 01/13/23:Pt able to stand for 6 min without UE support before need to sit secondary to weakness. LTG Duration 02/12/23 Pain Impairment Pt reports pain at 10/10 at worst. Short Term Goal (STG) Pt with reported pain at 7/10 at worst. 12/18/22: Pt reports pain at 6 -7/10 at the worst. Goal met STG Duration 12/18/22-achieved Adaptive Physical Educator Goal (LTG) Pt with reported pain at 4/10 at worst. 01/13/23: Pt with pain at 3-4/ 10 at today's tx. Pt reports that there was 1 day that he did not take pain meds before bed and woke up with pain at 6 -7/10. LTG Duration 02/12/23 Strength Impairment Pt with LE strength grossly at 3+/5. Short Term Goal (STG) Pt with LE strength grossly at 4-/5. 12/18/22: Progressing towards goal. Pt with 3+to 4-/5. 01/13/23: Pt with 3+ to 4-/5 LE strength grossly. Pt with endurance deficits. STG Duration 12/18/22 Prison Goal (LTG) Pt with LE grossly at 4/5. LTG Duration 02/12/23 JOSIAH Impairment Pt with Oswestry score of 68 Short Term Goal (STG) Pt with JOSIAH score of 55 12/18/22: GOAL MET-Pt with score of 54 on Oswestry. STG Duration 12/18/22-achieved Adaptive Physical Educator Goal (LTG) Pt with JOSIAH Score of 45 LTG Duration 02/12/23 LEFS Impairment Pt with LEFS score of 10/80. Short Term Goal (STG) Pt with LEFS score of 30/80 12/18/22: Pt with score of 17/ 80. Improved, though continues to progress towards goal. STG Duration 12/18/22 Prison Goal (LTG) Pt with LEFS score of 45/80. LTG Duration 02/12/23 Assessment Summary Assessment Pt continues to require frequent rest breaks during tx sessions. Pt with noticeable fatigue during PRE. Pt requires cueing for posture throughout session. Pt able to ambulate to/from waiting room without rest break today, though required close SBA and gait belt. Pt would benefit from continued PT to progress functional strength and mobility as tolerated. Physical Therapy Plan Frequency and Duration Frequency of Treatment 2x/Week Duration of treatment (weeks) 12 Plan of Care Start Date 11/20/22 Plan of Care End Date 02/12/23 Therapeutic Interventions Therapeutic Interventions Balance Training,Coordination Training,Gait Training,Home Exercise Program,Joint Mobilizations,Manual Therapy, Neuromuscular Re-education, Patient/Caregiver Education, Self-Care/Home Management,Soft Tissue Mobilization, Therapeutic Activities, Therapeutic Exercises Modalities Cold Pack/Ice Massage,Electric Stimulation,Hot Packs, Ultrasound Next Visit Focus/Plan Next Note Type Progress Note Next Visit Plan Progress strength, endurance and mobility as tolerated, work on balance Plan of Care Dates Plan of Care Start Date 11/20/22 Plan of Care End Date 02/12/23 Electronically Signed by: Susie Espinal, PT 01/13/23 [id number] If you are in agreement with this Plan of Care, please return a signed and dated copy. I have reviewed this Plan of Care and certify that the skilled therapy services above are required to meet the patient?s needs. Physician Signature Date Printed Name and Credentials Clinical Instructor Signature Printed Name and Credentials
--- NOTE | 2023-01-13 15:20 | PT.OTN ---
Current Diagnoses Other symptoms and signs involving the musculoskeletal system (01/13/23) Arthrodesis status (01/13/23) Physical Therapy Treatment Note PT-OP-A Visit Information Start: 11/20/22 13:51 Freq: Status: Active Protocol: Document 01/13/23 15:20 AM (Rec: 01/13/23 16:24 AM [id number]) Out-Patient Physical Therapy Visit Information Visit Information Visit Type Progress Note Visit Start Time 15:20 Visit Stop Time 16:05 Total Visit Minutes 45 Visit Number 14 Precautions Precautions Fall risk, gait belt, close SBA-CGA for ambulation. Pt often requires rest break from tx room to waiting room. PT-OP-B Current Condition Start: 11/20/22 13:51 Freq: Status: Active Protocol: Document 11/28/22 12:15 AM (Rec: 11/28/22 13:39 AM [id number]) Current Condition History of Current Condition Onset Date Chronic LBP, fusion in Nov Current Complaints low back pain, weakness. History of Current Condition Pt had lumbar fusion L4-5-S1 on January 30, 2022. Pt reports that he continues to have a lot of pain. Pt reports that he feels that he healed up residential. Pt has appt with surgeon tomorrow. Pt reports symptoms are intermittent. Pt is primarily at home walking with walking sticks. Pt only leaves house for doctors appointments. Pt reports that he has had falls recently. Pt reports that he cannot build strength. Pt reports low back, tailbone and hip pain. Pt uses FWW when ambulating outside of house. Pt reports that he always feels better if he sits down. Pt reports 3 falls in the last month. Pt reports that he has been riding recumbent bike for 30 min with goal to do this 6x/day. Prior Treatments and Tests Pt had MRI. PT-OP-C Subjective Start: 11/20/22 13:51 Freq: Status: Active Protocol: Document 01/13/23 15:20 AM (Rec: 01/13/23 16:24 AM [id number]) OP-PT Subjective Patient Comments Patient Comments Pt reports fall a few days ago , while letting the dog out. Pt reports that he gets a 30 sec warning that his legs are going to drain. Pt reports that he will follow-up with ortho on . PT-OP-D Balance Start: 11/20/22 13:51 Freq: Status: Active Protocol: Document 11/20/22 13:52 AM (Rec: 11/20/22 16:37 AM [id number]) Balance Tests Single Limb Standing Single Limb- Right unable to lift LE Single Limb- Left unable to lift LE PT-OP-E Functional Tests Start: 11/20/22 13:51 Freq: Status: Active Protocol: Document 11/20/22 13:52 AM (Rec: 11/20/22 16:37 AM [id number]) Functional Tests 30 Second Sit to Stand Test Score 0 Comments Unable to do without use of UE PT-OP-G Mobility & Gait Start: 11/20/22 13:51 Freq: Status: Active Protocol: Document 11/20/22 13:52 AM (Rec: 11/20/22 16:37 AM [id number]) OP Mobility Evaluation Bed Mobility Supine to and from Sit Min-Mod A with transfer from sit-supine OP Gait Assessment Gait Gait Assistance Required: Independent,Standby Assistance Assistive Devices Assistive Device None,Front Wheeled Walker Gait Deviations General Gait Pattern Antalgic,Flexed Trunk Factors Limiting Gait Function Factors Limiting Gait Function Decreased Activity Tolerance, Decreased Strength,Pain,Poor Balance PT-OP-J Posture/Palpation/Skin Start: 11/20/22 13:51 Freq: Status: Active Protocol: Document 11/20/22 13:52 AM (Rec: 11/20/22 16:37 AM [id number]) Posture Evaluation Position Standing L-Spine Posture Flattened Palpation Assessment Location Low back Palpation Location lumbar paraspinals Palpation Findings Tenderness PT-OP-M Strength Start: 11/20/22 13:51 Freq: Status: Active Protocol: Document 11/20/22 13:52 AM (Rec: 11/20/22 16:37 AM [id number]) Hip Strength Hip Manual Muscle Testing Right Flexion (L2) 3+ Fair+ Extension (S1) 3+ Fair+ Abduction 3 Fair Adduction 4- Good- External Rotation 3+ Fair+ Internal Rotation 3+ Fair+ Left Flexion (L2) 3+ Fair+ Extension (S1) 3+ Fair+ Abduction 3 Fair Adduction 4- Good- External Rotation 3+ Fair+ Internal Rotation 3+ Fair+ Knee Strength Knee Manual Muscle Testing Right Flexion (S2) 4- Good- Extension (L3) 4- Good- Left Flexion (S2) 4- Good- Extension (L3) 4- Good- PT-OP-Q Treatments Start: 11/20/22 13:51 Freq: Status: Active Protocol: Document 01/13/23 15:20 AM (Rec: 01/13/23 16:24 AM [id number]) Therapeutic Exercises Supine Exercises Hooklying marching Reps/Minutes 2x10 ea LE SKTC Side bilateral Reps/Minutes 2x30 sec BKFO Side bilateral Reps/Minutes 2x10 Comments cues for lumbopelvic control Transverse abdominis iso Supine Exercise Name hands together, pushing down into swissball Side bilateral Reps/Minutes 5x5 sec hold Sitting Exercises Palloff Press Resistance [place] TB Reps/Minutes 2x10 Seated Marches Resistance 4# Reps/Minutes x10 LAQ Side bilateral Resistance 4 Reps/Minutes 2x10 Standing Exercises Stationary standing Standing Exercise Name Without UE support Equipment Used in // bars Reps/Minutes x6 min to fatigue PT-OP-T Assessment and Plan Start: 11/20/22 13:51 Freq: Status: Active Protocol: Document 01/13/23 15:20 AM (Rec: 01/13/23 16:24 AM [id number]) Physical Therapy Assessment Goals HEP Impairment Pt not currently participating in strengthening program. Pt is riding recumbent bike. Sports Bookmaker Goal (LTG) Pt independent with HEP LTG Duration 02/12/23 Standing Impairment Pt able to stand for 5 min before need to sit secondary to pain. Short Term Goal (STG) Pt able to stand for 10 min before need to sit secondary to pain. 12/18/22: Pt progressing towards goal. Pt able to stand for 6 min before need to sit. STG Duration 12/18/22 Sports Bookmaker Goal (LTG) Pt able to stand for 20 min before need to sit secondary to pain. 01/13/23:Pt able to stand for 6 min without UE support before need to sit secondary to weakness. LTG Duration 02/12/23 Pain Impairment Pt reports pain at 10/10 at worst. Short Term Goal (STG) Pt with reported pain at 7/10 at worst. 12/18/22: Pt reports pain at 6 -7/10 at the worst. Goal met STG Duration 12/18/22-achieved Sports Bookmaker Goal (LTG) Pt with reported pain at 4/10 at worst. 01/13/23: Pt with pain at 3-4/ 10 at today's tx. Pt reports that there was 1 day that he did not take pain meds before bed and woke up with pain at 6 -7/10. LTG Duration 02/12/23 Strength Impairment Pt with LE strength grossly at 3+/5. Short Term Goal (STG) Pt with LE strength grossly at 4-/5. 12/18/22: Progressing towards goal. Pt with 3+to 4-/5. 01/13/23: Pt with 3+ to 4-/5 LE strength grossly. Pt with endurance deficits. STG Duration 12/18/22 Fpc Goal (LTG) Pt with LE grossly at 4/5. LTG Duration 02/12/23 JOSIAH Impairment Pt with Oswestry score of 68 Short Term Goal (STG) Pt with JOSIAH score of 55 12/18/22: GOAL MET-Pt with score of 54 on Oswestry. STG Duration 12/18/22-achieved Fpc Goal (LTG) Pt with JOSIAH Score of 45 LTG Duration 02/12/23 LEFS Impairment Pt with LEFS score of 10/80. Short Term Goal (STG) Pt with LEFS score of 30/80 12/18/22: Pt with score of 17/ 80. Improved, though continues to progress towards goal. STG Duration 12/18/22 Fpc Goal (LTG) Pt with LEFS score of 45/80. LTG Duration 02/12/23 Assessment Summary Assessment Pt continues to require frequent rest breaks during tx sessions. Pt with noticeable fatigue during PRE. Pt requires cueing for posture throughout session. Pt able to ambulate to/from waiting room without rest break today, though required close SBA and gait belt. Pt would benefit from continued PT to progress functional strength and mobility as tolerated. Physical Therapy Plan Frequency and Duration Frequency of Treatment 2x/Week Duration of treatment (weeks) 12 Plan of Care Start Date 11/20/22 Plan of Care End Date 02/12/23 Therapeutic Interventions Therapeutic Interventions Balance Training,Coordination Training,Gait Training,Home Exercise Program,Joint Mobilizations,Manual Therapy, Neuromuscular Re-education, Patient/Caregiver Education, Self-Care/Home Management,Soft Tissue Mobilization, Therapeutic Activities, Therapeutic Exercises Modalities Cold Pack/Ice Massage,Electric Stimulation,Hot Packs, Ultrasound Next Visit Focus/Plan Next Note Type Progress Note Next Visit Plan Progress strength, endurance and mobility as tolerated, work on balance
--- NOTE | 2023-01-20 15:17 | PT.OTN ---
Current Diagnoses Other symptoms and signs involving the musculoskeletal system (01/20/23) Arthrodesis status (01/20/23) Physical Therapy Treatment Note PT-OP-A Visit Information Start: 11/20/22 13:51 Freq: Status: Active Protocol: Document 01/20/23 15:17 AM (Rec: 01/20/23 16:58 AM [id number]) Out-Patient Physical Therapy Visit Information Visit Information Visit Type Treatment Note Visit Start Time 15:17 Visit Stop Time 16:02 Total Visit Minutes 45 Visit Number 15 Precautions Precautions Fall risk, gait belt, close SBA-CGA for ambulation. Pt often requires rest break to/ from tx room to waiting room at one of the chairs along the way PT-OP-B Current Condition Start: 11/20/22 13:51 Freq: Status: Active Protocol: Document 11/28/22 12:15 AM (Rec: 11/28/22 13:39 AM [id number]) Current Condition History of Current Condition Onset Date Chronic LBP, fusion in Nov Current Complaints low back pain, weakness. History of Current Condition Pt had lumbar fusion L4-5-S1 on January 30, 2022. Pt reports that he continues to have a lot of pain. Pt reports that he feels that he healed up fpc. Pt has appt with surgeon tomorrow. Pt reports symptoms are intermittent. Pt is primarily at home walking with walking sticks. Pt only leaves house for doctors appointments. Pt reports that he has had falls recently. Pt reports that he cannot build strength. Pt reports low back, tailbone and hip pain. Pt uses FWW when ambulating outside of house. Pt reports that he always feels better if he sits down. Pt reports 3 falls in the last month. Pt reports that he has been riding recumbent bike for 30 min with goal to do this 6x/day. Prior Treatments and Tests Pt had MRI. PT-OP-C Subjective Start: 11/20/22 13:51 Freq: Status: Active Protocol: Document 01/20/23 15:17 AM (Rec: 01/20/23 16:58 AM [id number]) OP-PT Subjective Patient Comments Patient Comments Pt reports that he had his final f/u with his surgeon. Pt reports that he is trying to decrease use of gabapentin because he thinks that it might be contributing to some of his dizziness. Pt reports concern about overdoing it in PT secondary to increased difficulty with getting back into house and up steps at home. PT-OP-D Balance Start: 11/20/22 13:51 Freq: Status: Active Protocol: Document 11/20/22 13:52 AM (Rec: 11/20/22 16:37 AM [id number]) Balance Tests Single Limb Standing Single Limb- Right unable to lift LE Single Limb- Left unable to lift LE PT-OP-E Functional Tests Start: 11/20/22 13:51 Freq: Status: Active Protocol: Document 11/20/22 13:52 AM (Rec: 11/20/22 16:37 AM [id number]) Functional Tests 30 Second Sit to Stand Test Score 0 Comments Unable to do without use of UE PT-OP-G Mobility & Gait Start: 11/20/22 13:51 Freq: Status: Active Protocol: Document 11/20/22 13:52 AM (Rec: 11/20/22 16:37 AM [id number]) OP Mobility Evaluation Bed Mobility Supine to and from Sit Min-Mod A with transfer from sit-supine OP Gait Assessment Gait Gait Assistance Required: Independent,Standby Assistance Assistive Devices Assistive Device None,Front Wheeled Walker Gait Deviations General Gait Pattern Antalgic,Flexed Trunk Factors Limiting Gait Function Factors Limiting Gait Function Decreased Activity Tolerance, Decreased Strength,Pain,Poor Balance PT-OP-J Posture/Palpation/Skin Start: 11/20/22 13:51 Freq: Status: Active Protocol: Document 11/20/22 13:52 AM (Rec: 11/20/22 16:37 AM [id number]) Posture Evaluation Position Standing L-Spine Posture Flattened Palpation Assessment Location Low back Palpation Location lumbar paraspinals Palpation Findings Tenderness PT-OP-M Strength Start: 11/20/22 13:51 Freq: Status: Active Protocol: Document 01/13/23 15:20 AM (Rec: 01/13/23 16:27 AM [id number]) Hip Strength Hip Manual Muscle Testing Right Flexion (L2) 3+ Fair+ Extension (S1) 4- Good- Abduction 3+ Fair+ Adduction 4- Good- External Rotation 3+ Fair+ Internal Rotation 3+ Fair+ Left Flexion (L2) 3+ Fair+ Extension (S1) 4- Good- Abduction 3+ Fair+ Adduction 4- Good- External Rotation 3+ Fair+ Internal Rotation 3+ Fair+ Knee Strength Knee Manual Muscle Testing Right Flexion (S2) 4- Good- Extension (L3) 4- Good- Left Flexion (S2) 4- Good- Extension (L3) 4- Good- PT-OP-Q Treatments Start: 11/20/22 13:51 Freq: Status: Active Protocol: Document 01/20/23 15:17 AM (Rec: 01/20/23 16:58 AM [id number]) Cardio Equipment Recumbent Stepper (Sci-Fit) Duration (Minutes) 5 Resistance 4.5 Seat Position 14 Gym Equipment Shuttle Recovery Bilateral squat Resistance 50# (2 navy) Reps/Time 2x15 Therapeutic Exercises Supine Exercises Marching Comments cues for trunk stab Hooklying marching Reps/Minutes 2x10 ea LE Comments cues for TA Lower abdominal cane pull down Resistance purple TB Equipment Used dowel Reps/Minutes 2x10 Comments cues for TA SKTC Side bilateral Reps/Minutes 2x30 sec BKFO Side bilateral Resistance [place] TB Reps/Minutes 2x10 Comments cues for lumbopelvic control Sitting Exercises Pall[place] Press Resistance [place] TB Reps/Minutes 2x10 Standing Exercises Shoulder extension Equipment Used GTB Reps/Minutes x10 PT-OP-T Assessment and Plan Start: 11/20/22 13:51 Freq: Status: Active Protocol: Document 01/20/23 15:17 AM (Rec: 01/20/23 16:58 AM [id number]) Physical Therapy Assessment Goals HEP Impairment Pt not currently participating in strengthening program. Pt is riding recumbent bike. Electric Motor Winder Goal (LTG) Pt independent with HEP LTG Duration 02/12/23 Standing Impairment Pt able to stand for 5 min before need to sit secondary to pain. Short Term Goal (STG) Pt able to stand for 10 min before need to sit secondary to pain. 12/18/22: Pt progressing towards goal. Pt able to stand for 6 min before need to sit. STG Duration 12/18/22 Intermediate Goal (LTG) Pt able to stand for 20 min before need to sit secondary to pain. 01/13/23:Pt able to stand for 6 min without UE support before need to sit secondary to weakness. LTG Duration 02/12/23 Pain Impairment Pt reports pain at 10/10 at worst. Short Term Goal (STG) Pt with reported pain at 7/10 at worst. 12/18/22: Pt reports pain at 6 -7/10 at the worst. Goal met STG Duration 12/18/22-achieved Intermediate Goal (LTG) Pt with reported pain at 4/10 at worst. 01/13/23: Pt with pain at 3-4/ 10 at today's tx. Pt reports that there was 1 day that he did not take pain meds before bed and woke up with pain at 6 -7/10. LTG Duration 02/12/23 Strength Impairment Pt with LE strength grossly at 3+/5. Short Term Goal (STG) Pt with LE strength grossly at 4-/5. 12/18/22: Progressing towards goal. Pt with 3+to 4-/5. 01/13/23: Pt with 3+ to 4-/5 LE strength grossly. Pt with endurance deficits. STG Duration 12/18/22 Electric Motor Winder Goal (LTG) Pt with LE grossly at 4/5. LTG Duration 02/12/23 JOSIAH Impairment Pt with Oswestry score of 68 Short Term Goal (STG) Pt with JOSIAH score of 55 12/18/22: GOAL MET-Pt with score of 54 on Oswestry. 01/13/23: Progressing towards LTG with score of 48%. STG Duration 12/18/22-achieved Intermediate Goal (LTG) Pt with JOSIAH Score of 45 LTG Duration 02/12/23 LEFS Impairment Pt with LEFS score of 10/80. Short Term Goal (STG) Pt with LEFS score of 30/80 12/18/22: Pt with score of 17/ 80. Improved, though continues to progress towards goal. STG Duration 12/18/22 Intermediate Goal (LTG) Pt with LEFS score of 45/80. LTG Duration 02/12/23 Assessment Summary Assessment Pt required 1 rest break from treatment area to waiting room following tx session. Pt demonstrates improving awareness of TA stabilization with exercises. Pt with reported decreased in tailbone sxs with SKTC today. Pt requires frequent rest breaks with all standing exercises, though able to tolerate unloaded exercises well. Pt would benefit from continued PT to progress endurance, strength and functional mobility as tolerated. Physical Therapy Plan Frequency and Duration Frequency of Treatment 2x/Week Duration of treatment (weeks) 12 Plan of Care Start Date 11/20/22 Plan of Care End Date 02/12/23 Therapeutic Interventions Therapeutic Interventions Balance Training,Coordination Training,Gait Training,Home Exercise Program,Joint Mobilizations,Manual Therapy, Neuromuscular Re-education, Patient/Caregiver Education, Self-Care/Home Management,Soft Tissue Mobilization, Therapeutic Activities, Therapeutic Exercises Modalities Cold Pack/Ice Massage,Electric Stimulation,Hot Packs, Ultrasound Next Visit Focus/Plan Next Note Type Progress Note Next Visit Plan Progress strength, endurance and mobility as tolerated, work on balance
--- NOTE | 2023-01-28 16:16 | PT.OTN ---
Current Diagnoses Other symptoms and signs involving the musculoskeletal system (01/28/23) Arthrodesis status (01/28/23) Physical Therapy Treatment Note PT-OP-A Visit Information Start: 11/20/22 13:51 Freq: Status: Active Protocol: Document 01/28/23 15:10 [facility] (Rec: 01/28/23 16:16 [facility] [id number]) Out-Patient Physical Therapy Visit Information Visit Information Visit Type Treatment Note Visit Start Time 15:15 Visit Stop Time 16:05 Total Visit Minutes 50 Visit Number 16 Precautions Precautions Fall risk, gait belt, close SBA-CGA for ambulation. Pt often requires rest break to/ from tx room to waiting room at one of the chairs along the way PT-OP-B Current Condition Start: 11/20/22 13:51 Freq: Status: Active Protocol: Document 11/28/22 12:15 AM (Rec: 11/28/22 13:39 AM [id number]) Current Condition History of Current Condition Onset Date Chronic LBP, fusion in Nov Current Complaints low back pain, weakness. History of Current Condition Pt had lumbar fusion L4-5-S1 on January 30, 2022. Pt reports that he continues to have a lot of pain. Pt reports that he feels that he healed up [facility]. Pt has appt with surgeon tomorrow. Pt reports symptoms are intermittent. Pt is primarily at home walking with walking sticks. Pt only leaves house for doctors appointments. Pt reports that he has had falls recently. Pt reports that he cannot build strength. Pt reports low back, tailbone and hip pain. Pt uses FWW when ambulating outside of house. Pt reports that he always feels better if he sits down. Pt reports 3 falls in the last month. Pt reports that he has been riding recumbent bike for 30 min with goal to do this 6x/day. Prior Treatments and Tests Pt had MRI. PT-OP-C Subjective Start: 11/20/22 13:51 Freq: Status: Active Protocol: Document 01/28/23 15:10 [facility] (Rec: 01/28/23 16:16 [facility] [id number]) OP-PT Subjective Patient Comments Patient Comments Can walk a little better, uses cane in house. the stairs in front of house and into garage are both challenging (3 steps with second step being very tall.) Collapsed a couple weeks ago at the door after going up the stairs after a PT session. Has fallen quite a few times at home. Would like to work on floor transfer. PT-OP-D Balance Start: 11/20/22 13:51 Freq: Status: Active Protocol: Document 11/20/22 13:52 AM (Rec: 11/20/22 16:37 AM [id number]) Balance Tests Single Limb Standing Single Limb- Right unable to lift LE Single Limb- Left unable to lift LE PT-OP-E Functional Tests Start: 11/20/22 13:51 Freq: Status: Active Protocol: Document 11/20/22 13:52 AM (Rec: 11/20/22 16:37 AM [id number]) Functional Tests 30 Second Sit to Stand Test Score 0 Comments Unable to do without use of UE PT-OP-G Mobility & Gait Start: 11/20/22 13:51 Freq: Status: Active Protocol: Document 11/20/22 13:52 AM (Rec: 11/20/22 16:37 AM [id number]) OP Mobility Evaluation Bed Mobility Supine to and from Sit Min-Mod A with transfer from sit-supine OP Gait Assessment Gait Gait Assistance Required: Independent,Standby Assistance Assistive Devices Assistive Device None,Front Wheeled Walker Gait Deviations General Gait Pattern Antalgic,Flexed Trunk Factors Limiting Gait Function Factors Limiting Gait Function Decreased Activity Tolerance, Decreased Strength,Pain,Poor Balance PT-OP-J Posture/Palpation/Skin Start: 11/20/22 13:51 Freq: Status: Active Protocol: Document 11/20/22 13:52 AM (Rec: 11/20/22 16:37 AM [id number]) Posture Evaluation Position Standing L-Spine Posture Flattened Palpation Assessment Location Low back Palpation Location lumbar paraspinals Palpation Findings Tenderness PT-OP-M Strength Start: 11/20/22 13:51 Freq: Status: Active Protocol: Document 01/13/23 15:20 AM (Rec: 01/13/23 16:27 AM [id number]) Hip Strength Hip Manual Muscle Testing Right Flexion (L2) 3+ Fair+ Extension (S1) 4- Good- Abduction 3+ Fair+ Adduction 4- Good- External Rotation 3+ Fair+ Internal Rotation 3+ Fair+ Left Flexion (L2) 3+ Fair+ Extension (S1) 4- Good- Abduction 3+ Fair+ Adduction 4- Good- External Rotation 3+ Fair+ Internal Rotation 3+ Fair+ Knee Strength Knee Manual Muscle Testing Right Flexion (S2) 4- Good- Extension (L3) 4- Good- Left Flexion (S2) 4- Good- Extension (L3) 4- Good- PT-OP-Q Treatments Start: 11/20/22 13:51 Freq: Status: Active Protocol: Document 01/28/23 15:10 [facility] (Rec: 01/28/23 16:16 [facility] [id number]) Cardio Equipment Recumbent Stepper (Sci-Fit) Duration (Minutes) 5 Resistance 3 Seat Position 14 Gym Equipment Shuttle Recovery Unilateral Squats Resistance 25 Reps/Time 2x10 Bilateral squat Resistance 50# (2 navy) Reps/Time 2x15 Therapeutic Exercises Supine Exercises single leg lowering Reps/Minutes 10x Comments cues for keeping pelvis in PPT gluteal sets Reps/Minutes 10x hamstring stretch Reps/Minutes 2x30 Comments on shuttle recovery machine Hooklying marching Reps/Minutes 2x10 ea LE Comments cues for TA Lower abdominal cane pull down Resistance purple TB Equipment Used dowel Reps/Minutes 2x10 Comments cues for TA Neuro Re-Education Treatment Balance Activities tiltboard Equipment tiltboard Reps/Duration 1 min PT-OP-T Assessment and Plan Start: 11/20/22 13:51 Freq: Status: Active Protocol: Document 01/28/23 15:10 [facility] (Rec: 01/28/23 16:16 [facility] [id number]) Physical Therapy Assessment Goals HEP Impairment Pt not currently participating in strengthening program. Pt is riding recumbent bike. Skilled Nursing Goal (LTG) Pt independent with HEP LTG Duration 02/12/23 Standing Impairment Pt able to stand for 5 min before need to sit secondary to pain. Short Term Goal (STG) Pt able to stand for 10 min before need to sit secondary to pain. 12/18/22: Pt progressing towards goal. Pt able to stand for 6 min before need to sit. STG Duration 12/18/22 Provider Relations Coordinator Goal (LTG) Pt able to stand for 20 min before need to sit secondary to pain. 01/13/23:Pt able to stand for 6 min without UE support before need to sit secondary to weakness. LTG Duration 02/12/23 Pain Impairment Pt reports pain at 10/10 at worst. Short Term Goal (STG) Pt with reported pain at 7/10 at worst. 10/18/23: Pt reports pain at 6 -7/10 at the worst. Goal met STG Duration 12/18/22-achieved Provider Relations Coordinator Goal (LTG) Pt with reported pain at 4/10 at worst. 01/13/23: Pt with pain at 3-4/ 10 at today's tx. Pt reports that there was 1 day that he did not take pain meds before bed and woke up with pain at 6 -7/10. LTG Duration 02/12/23 Strength Impairment Pt with LE strength grossly at 3+/5. Short Term Goal (STG) Pt with LE strength grossly at 4-/5. 12/18/22: Progressing towards goal. Pt with 3+to 4-/5. 01/13/23: Pt with 3+ to 4-/5 LE strength grossly. Pt with endurance deficits. STG Duration 12/18/22 Skilled Nursing Goal (LTG) Pt with LE grossly at 4/5. LTG Duration 02/12/23 JOSIAH Impairment Pt with Oswestry score of 68 Short Term Goal (STG) Pt with JOSIAH score of 55 12/18/22: GOAL MET-Pt with score of 54 on Oswestry. 01/13/23: Progressing towards LTG with score of 48%. STG Duration 12/18/22-achieved Provider Relations Coordinator Goal (LTG) Pt with JOSIAH Score of 45 LTG Duration 02/12/23 LEFS Impairment Pt with LEFS score of 10/80. Short Term Goal (STG) Pt with LEFS score of 30/80 12/18/22: Pt with score of 17/ 80. Improved, though continues to progress towards goal. STG Duration 12/18/22 Skilled Nursing Goal (LTG) Pt with LEFS score of 45/80. LTG Duration 02/12/23 Assessment Summary Assessment Requested seated rest after 1 min on tiltboard; reports he can feel the energy drain out of my legs. Able to progress to bent knee leg lowering supine for core stab. Progressed to single leg on shuttle leg press with good tolerance and added glut set ( not bridge).Trial moist heat during supine ex with good debbie . Physical Therapy Plan Frequency and Duration Frequency of Treatment 2x/Week Duration of treatment (weeks) 12 Plan of Care Start Date 11/20/22 Plan of Care End Date 12/13/23 Therapeutic Interventions Therapeutic Interventions Balance Training,Coordination Training,Gait Training,Home Exercise Program,Joint Mobilizations,Manual Therapy, Neuromuscular Re-education, Patient/Caregiver Education, Self-Care/Home Management,Soft Tissue Mobilization, Therapeutic Activities, Therapeutic Exercises Modalities Cold Pack/Ice Massage,Electric Stimulation,Hot Packs, Ultrasound Next Visit Focus/Plan Next Note Type Progress Note Next Visit Plan Progress strength, endurance and mobility as tolerated, work on balance per POC.
--- NOTE | 2023-01-30 13:52 | PT.OTN ---
Addendum entered and electronically signed by Crista Alvarez, RIGOBERTO 02/04/23 17:29: Update POC soon. Original Note: Current Diagnoses Other symptoms and signs involving the musculoskeletal system (01/30/23) Arthrodesis status (01/30/23) Physical Therapy Treatment Note PT-OP-A Visit Information Start: 11/20/22 13:51 Freq: Status: Active Protocol: Document 01/30/23 13:09 SP (Rec: 01/30/23 13:51 SP [id number]) Out-Patient Physical Therapy Visit Information Visit Information Visit Type Treatment Note Visit Start Time 13:09 Visit Stop Time 13:52 Total Visit Minutes 38 Visit Number 15 Number of TRANSMISSION DESIGN ENGINEER Visits 1 Evaluation Information Evaluation Date 11/20/22 Precautions Precautions Fall risk, gait belt, close SBA-CGA for ambulation. Pt often requires rest break to/ from tx room to waiting room at one of the chairs along the way PT-OP-B Current Condition Start: 11/20/22 13:51 Freq: Status: Active Protocol: Document 11/28/22 12:15 AM (Rec: 11/28/22 13:39 AM [id number]) Current Condition History of Current Condition Onset Date Chronic LBP, fusion in Nov Current Complaints low back pain, weakness. History of Current Condition Pt had lumbar fusion L4-5-S1 on January 30, 2022. Pt reports that he continues to have a lot of pain. Pt reports that he feels that he healed up nursing home. Pt has appt with surgeon tomorrow. Pt reports symptoms are intermittent. Pt is primarily at home walking with walking sticks. Pt only leaves house for doctors appointments. Pt reports that he has had falls recently. Pt reports that he cannot build strength. Pt reports low back, tailbone and hip pain. Pt uses FWW when ambulating outside of house. Pt reports that he always feels better if he sits down. Pt reports 3 falls in the last month. Pt reports that he has been riding recumbent bike for 30 min with goal to do this 6x/day. Prior Treatments and Tests Pt had MRI. PT-OP-C Subjective Start: 11/20/22 13:51 Freq: Status: Active Protocol: Document 01/30/23 13:09 SP (Rec: 01/30/23 13:51 SP [id number]) OP-PT Subjective Patient Comments Patient Comments Pt improved ther ex performance with noted engagement TA stabilization, able to progress to single leg lowering and sequencial march with cues for slower pacing. Added seated pull downs to allow carryover home core/ scapular strengthening. PT-OP-D Balance Start: 11/20/22 13:51 Freq: Status: Active Protocol: Document 11/20/22 13:52 AM (Rec: 11/20/22 16:37 AM [id number]) Balance Tests Single Limb Standing Single Limb- Right unable to lift LE Single Limb- Left unable to lift LE PT-OP-E Functional Tests Start: 11/20/22 13:51 Freq: Status: Active Protocol: Document 11/20/22 13:52 AM (Rec: 11/20/22 16:37 AM [id number]) Functional Tests 30 Second Sit to Stand Test Score 0 Comments Unable to do without use of UE PT-OP-G Mobility & Gait Start: 11/20/22 13:51 Freq: Status: Active Protocol: Document 11/20/22 13:52 AM (Rec: 11/20/22 16:37 AM [id number]) OP Mobility Evaluation Bed Mobility Supine to and from Sit Min-Mod A with transfer from sit-supine OP Gait Assessment Gait Gait Assistance Required: Independent,Standby Assistance Assistive Devices Assistive Device None,Front Wheeled Walker Gait Deviations General Gait Pattern Antalgic,Flexed Trunk Factors Limiting Gait Function Factors Limiting Gait Function Decreased Activity Tolerance, Decreased Strength,Pain,Poor Balance PT-OP-J Posture/Palpation/Skin Start: 11/20/22 13:51 Freq: Status: Active Protocol: Document 11/20/22 13:52 AM (Rec: 11/20/22 16:37 AM [id number]) Posture Evaluation Position Standing L-Spine Posture Flattened Palpation Assessment Location Low back Palpation Location lumbar paraspinals Palpation Findings Tenderness PT-OP-M Strength Start: 11/20/22 13:51 Freq: Status: Active Protocol: Document 01/13/23 15:20 AM (Rec: 01/13/23 16:27 AM [id number]) Hip Strength Hip Manual Muscle Testing Right Flexion (L2) 3+ Fair+ Extension (S1) 4- Good- Abduction 3+ Fair+ Adduction 4- Good- External Rotation 3+ Fair+ Internal Rotation 3+ Fair+ Left Flexion (L2) 3+ Fair+ Extension (S1) 4- Good- Abduction 3+ Fair+ Adduction 4- Good- External Rotation 3+ Fair+ Internal Rotation 3+ Fair+ Knee Strength Knee Manual Muscle Testing Right Flexion (S2) 4- Good- Extension (L3) 4- Good- Left Flexion (S2) 4- Good- Extension (L3) 4- Good- PT-OP-Q Treatments Start: 11/20/22 13:51 Freq: Status: Active Protocol: Document 01/30/23 13:09 SP (Rec: 01/30/23 13:51 SP [id number]) Therapeutic Exercises Supine Exercises single leg lowering Supine Exercise Name added to HEP: SLR Side bilateral Resistance alternate Reps/Minutes 5 reps x3 sets Comments cues for keeping pelvis in PPT , TKE and LE not higher than bent knee gluteal sets Reps/Minutes 10x, 3 SH Comments good form Marching Supine Exercise Name sequencial march Reps/Minutes x10 lead each LE Comments cues for trunk stab during LE lift/lower Lower abdominal cane pull down Resistance purple TB Equipment Used dowel Reps/Minutes 2x10 Comments cues for TA Sitting Exercises pull downs Sitting Exercise Name discussed do home- gave HO and will recheck I next tx for home Resistance #5 purple TB for home carryover STS Sitting Exercise Name Discussed for HEP review next tx. Reps/Minutes 3 reps 3x/day Gait Training Gait Activity FWW Device Used FWW Level of Assistance CGA Distance/Duration 140 ft, to/from waiting room Treatment Focus foot clearance, stride, elongated posturing, proximity to FWW Comments Adjusted FWW height 1 knotch and swapped front wheels to position outside of FWW. Cued elongated posture, proximity to FWW noted less BUE WB on FWW, improved. PT-OP-R Modalities Start: 11/20/22 13:51 Freq: Status: Active Protocol: Document 01/30/23 13:09 SP (Rec: 01/30/23 13:51 SP [id number]) Hot Pack/Cold Pack Treatment MHP Location LS end tx. Patient Position Prone Treatment Duration (minutes) 8 Patient Tolerance Good Comments good feeling w/ ther ex. PT-OP-T Assessment and Plan Start: 11/20/22 13:51 Freq: Status: Active Protocol: Document 01/30/23 13:09 SP (Rec: 01/30/23 13:51 SP [id number]) Physical Therapy Assessment Goals HEP Impairment Pt not currently participating in strengthening program. Pt is riding recumbent bike. Snf Goal (LTG) Pt independent with HEP LTG Duration 02/12/23 Standing Impairment Pt able to stand for 5 min before need to sit secondary to pain. Short Term Goal (STG) Pt able to stand for 10 min before need to sit secondary to pain. 12/18/22: Pt progressing towards goal. Pt able to stand for 6 min before need to sit. STG Duration 12/18/22 Snf Goal (LTG) Pt able to stand for 20 min before need to sit secondary to pain. 01/13/23:Pt able to stand for 6 min without UE support before need to sit secondary to weakness. LTG Duration 02/12/23 Pain Impairment Pt reports pain at 10/10 at worst. Short Term Goal (STG) Pt with reported pain at 7/10 at worst. 12/18/22: Pt reports pain at 6 -7/10 at the worst. Goal met STG Duration 12/18/22-achieved Snf Goal (LTG) Pt with reported pain at 4/10 at worst. 01/13/23: Pt with pain at 3-4/ 10 at today's tx. Pt reports that there was 1 day that he did not take pain meds before bed and woke up with pain at 6 -7/10. LTG Duration 02/12/23 Strength Impairment Pt with LE strength grossly at 3+/5. Short Term Goal (STG) Pt with LE strength grossly at 4-/5. 12/18/22: Progressing towards goal. Pt with 3+to 4-/5. 01/13/23: Pt with 3+ to 4-/5 LE strength grossly. Pt with endurance deficits. STG Duration 12/18/22 Mac Artist Goal (LTG) Pt with LE grossly at 4/5. LTG Duration 02/12/23 JOSIAH Impairment Pt with Oswestry score of 68 Short Term Goal (STG) Pt with JOSIAH score of 55 12/18/22: GOAL MET-Pt with score of 54 on Oswestry. 01/13/23: Progressing towards LTG with score of 48%. STG Duration 12/18/22-achieved Snf Goal (LTG) Pt with JOSIAH Score of 45 LTG Duration 02/12/23 LEFS Impairment Pt with LEFS score of 10/80. Short Term Goal (STG) Pt with LEFS score of 30/80 12/18/22: Pt with score of 17/ 80. Improved, though continues to progress towards goal. STG Duration 12/18/22 Snf Goal (LTG) Pt with LEFS score of 45/80. LTG Duration 02/12/23 Assessment Summary Assessment Pt improved muscular effort with ability to progress into single leg eccentric SLR and review sequencial marching TA stabilization. Instructed seated pull downs with discussion perferred abilityto carryover at home. Pt improved gait with less BUE WB on FWW post elevation FWW by 1 knotch. Pt would benefit from progression standing ther ex to support increase balance with decrease support of AD. Physical Therapy Plan Frequency and Duration Frequency of Treatment 2x/Week Duration of treatment (weeks) 12 Plan of Care Start Date 11/20/22 Plan of Care End Date 02/12/23 Therapeutic Interventions Therapeutic Interventions Balance Training,Coordination Training,Gait Training,Home Exercise Program,Joint Mobilizations,Manual Therapy, Neuromuscular Re-education, Patient/Caregiver Education, Self-Care/Home Management,Soft Tissue Mobilization, Therapeutic Activities, Therapeutic Exercises Modalities Cold Pack/Ice Massage,Electric Stimulation,Hot Packs, Ultrasound Next Visit Focus/Plan Next Note Type Treatment Note Next Visit Plan Recheck HEP. POC: Progress strength, endurance and mobility as tolerated, work on balance per POC.
--- NOTE | 2023-02-06 14:09 | PT.OTN ---
Current Diagnoses Other symptoms and signs involving the musculoskeletal system (02/06/23) Arthrodesis status (02/06/23) Physical Therapy Treatment Note PT-OP-A Visit Information Start: 11/20/22 13:51 Freq: Status: Active Protocol: Document 02/06/23 13:09 SW (Rec: 02/06/23 14:09 SW [id number]) Out-Patient Physical Therapy Visit Information Visit Information Visit Type Treatment Note Visit Start Time 13:01 Visit Stop Time 13:50 Total Visit Minutes 49 Visit Number 18 Number of EQUIPMENT SERVICE LEAD Visits 2 PT-OP-B Current Condition Start: 11/20/22 13:51 Freq: Status: Active Protocol: Document 11/28/22 12:15 AM (Rec: 11/28/22 13:39 AM [id number]) Current Condition History of Current Condition Onset Date Chronic LBP, fusion in Nov Current Complaints low back pain, weakness. History of Current Condition Pt had lumbar fusion L4-5-S1 on January 30, 2022. Pt reports that he continues to have a lot of pain. Pt reports that he feels that he healed up [facility]. Pt has appt with surgeon tomorrow. Pt reports symptoms are intermittent. Pt is primarily at home walking with walking sticks. Pt only leaves house for doctors appointments. Pt reports that he has had falls recently. Pt reports that he cannot build strength. Pt reports low back, tailbone and hip pain. Pt uses FWW when ambulating outside of house. Pt reports that he always feels better if he sits down. Pt reports 3 falls in the last month. Pt reports that he has been riding recumbent bike for 30 min with goal to do this 6x/day. Prior Treatments and Tests Pt had MRI. PT-OP-C Subjective Start: 11/20/22 13:51 Freq: Status: Active Protocol: Document 02/06/23 13:09 SW (Rec: 02/06/23 14:09 SW [id number]) OP-PT Subjective Patient Comments Patient Comments Pt reports tired, back pain today, pn relief has not kicked in yet. PT-OP-D Balance Start: 11/20/22 13:51 Freq: Status: Active Protocol: Document 11/20/22 13:52 AM (Rec: 11/20/22 16:37 AM [id number]) Balance Tests Single Limb Standing Single Limb- Right unable to lift LE Single Limb- Left unable to lift LE PT-OP-E Functional Tests Start: 11/20/22 13:51 Freq: Status: Active Protocol: Document 11/20/22 13:52 AM (Rec: 11/20/22 16:37 AM [id number]) Functional Tests 30 Second Sit to Stand Test Score 0 Comments Unable to do without use of UE PT-OP-G Mobility & Gait Start: 11/20/22 13:51 Freq: Status: Active Protocol: Document 11/20/22 13:52 AM (Rec: 11/20/22 16:37 AM [id number]) OP Mobility Evaluation Bed Mobility Supine to and from Sit Min-Mod A with transfer from sit-supine OP Gait Assessment Gait Gait Assistance Required: Independent,Standby Assistance Assistive Devices Assistive Device None,Front Wheeled Walker Gait Deviations General Gait Pattern Antalgic,Flexed Trunk Factors Limiting Gait Function Factors Limiting Gait Function Decreased Activity Tolerance, Decreased Strength,Pain,Poor Balance PT-OP-J Posture/Palpation/Skin Start: 11/20/22 13:51 Freq: Status: Active Protocol: Document 11/20/22 13:52 AM (Rec: 11/20/22 16:37 AM [id number]) Posture Evaluation Position Standing L-Spine Posture Flattened Palpation Assessment Location Low back Palpation Location lumbar paraspinals Palpation Findings Tenderness PT-OP-M Strength Start: 11/20/22 13:51 Freq: Status: Active Protocol: Document 01/13/23 15:20 AM (Rec: 01/13/23 16:27 AM [id number]) Hip Strength Hip Manual Muscle Testing Right Flexion (L2) 3+ Fair+ Extension (S1) 4- Good- Abduction 3+ Fair+ Adduction 4- Good- External Rotation 3+ Fair+ Internal Rotation 3+ Fair+ Left Flexion (L2) 3+ Fair+ Extension (S1) 4- Good- Abduction 3+ Fair+ Adduction 4- Good- External Rotation 3+ Fair+ Internal Rotation 3+ Fair+ Knee Strength Knee Manual Muscle Testing Right Flexion (S2) 4- Good- Extension (L3) 4- Good- Left Flexion (S2) 4- Good- Extension (L3) 4- Good- PT-OP-Q Treatments Start: 11/20/22 13:51 Freq: Status: Active Protocol: Document 02/06/23 13:09 SW (Rec: 02/06/23 14:09 [id number]) Therapeutic Exercises Supine Exercises single leg lowering Supine Exercise Name Reviewed HEP: SLR Side bilateral Resistance alternate Reps/Minutes 5 reps x3 sets Comments cues for keeping pelvis in PPT , TKE and LE not higher than bent knee gluteal sets Supine Exercise Name minimal lift Reps/Minutes 15x, 3 SH Comments good form Lower abdominal cane pull down Resistance purple TB Equipment Used dowel Reps/Minutes 3x10 Comments cues for TA Sitting Exercises STS Sitting Exercise Name STS w/out UE asssist Equipment Used Highlow table elevated to pt bed height Reps/Minutes 3 x 3 Comments SBA/CGA, cues for hip hinge to avoid posterior LOB Neuro Re-Education Treatment Balance Activities NBOS Details WBOS>NBOS Surface stable Equipment FWW to bring LE into NBOS Reps/Duration NBOS x20 x17 Comments Focused on balance, while maintaing postural control, challenging pt with both strength and endurance. PT-OP-R Modalities Start: 11/20/22 13:51 Freq: Status: Active Protocol: Document 02/06/23 13:09 (Rec: 02/06/23 14:09 [id number]) Hot Pack/Cold Pack Treatment MHP Location LS end tx. Patient Position Prone Treatment Duration (minutes) 10 Patient Tolerance Good Comments good feeling w/ ther ex. PT-OP-T Assessment and Plan Start: 11/20/22 13:51 Freq: Status: Active Protocol: Document 02/06/23 13:09 (Rec: 02/06/23 14:09 [id number]) Physical Therapy Assessment Goals HEP Impairment Pt not currently participating in strengthening program. Pt is riding recumbent bike. Shelter Goal (LTG) Pt independent with HEP LTG Duration 02/12/23 Standing Impairment Pt able to stand for 5 min before need to sit secondary to pain. Short Term Goal (STG) Pt able to stand for 10 min before need to sit secondary to pain. 12/18/22: Pt progressing towards goal. Pt able to stand for 6 min before need to sit. STG Duration 12/18/22 Vrt Mechanic Goal (LTG) Pt able to stand for 20 min before need to sit secondary to pain. 01/13/23:Pt able to stand for 6 min without UE support before need to sit secondary to weakness. LTG Duration 02/12/23 Pain Impairment Pt reports pain at 10/10 at worst. Short Term Goal (STG) Pt with reported pain at 7/10 at worst. 12/18/22: Pt reports pain at 6 -7/10 at the worst. Goal met STG Duration 12/18/22-achieved Vrt Mechanic Goal (LTG) Pt with reported pain at 4/10 at worst. 01/13/23: Pt with pain at 3-4/ 10 at today's tx. Pt reports that there was 1 day that he did not take pain meds before bed and woke up with pain at 6 -7/10. LTG Duration 02/12/23 Strength Impairment Pt with LE strength grossly at 3+/5. Short Term Goal (STG) Pt with LE strength grossly at 4-/5. 12/18/22: Progressing towards goal. Pt with 3+to 4-/5. 01/13/23: Pt with 3+ to 4-/5 LE strength grossly. Pt with endurance deficits. STG Duration 12/18/22 Shelter Goal (LTG) Pt with LE grossly at 4/5. LTG Duration 02/12/23 JOSIAH Impairment Pt with Oswestry score of 68 Short Term Goal (STG) Pt with JOSIAH score of 55 12/18/22: GOAL MET-Pt with score of 54 on Oswestry. 01/13/23: Progressing towards LTG with score of 48%. STG Duration 12/18/22-achieved Vrt Mechanic Goal (LTG) Pt with JOSIAH Score of 45 LTG Duration 02/12/23 LEFS Impairment Pt with LEFS score of 10/80. Short Term Goal (STG) Pt with LEFS score of 30/80 12/18/22: Pt with score of 17/ 80. Improved, though continues to progress towards goal. STG Duration 12/18/22 Vrt Mechanic Goal (LTG) Pt with LEFS score of 45/80. LTG Duration 02/12/23 Assessment Summary Assessment Continued therapeutic exercises for strength, endurance and balance this session, pt required rest breaks throughout session. Executed standing this session with both WBOS and narrow MIRNA for balance, strength, and standing tolerance toward pt goals. Pt challenged with NBOS balance, able to tolerate 20 x 1 set and 17 x1 set, before requiring seated rest breaks d/t fatigue, multiple verbal cues required for standing upright posture. Reviewed STS this session, pt required verbal/visual cues for hip hinge mechanics to avoid posterior LOB, improved with reps. Pt reports loosening up with min improved pain post session. Physical Therapy Plan Frequency and Duration Frequency of Treatment 2x/Week Duration of treatment (weeks) 12 Plan of Care Start Date 11/20/22 Plan of Care End Date 02/12/23 Therapeutic Interventions Therapeutic Interventions Balance Training,Coordination Training,Gait Training,Home Exercise Program,Joint Mobilizations,Manual Therapy, Neuromuscular Re-education, Patient/Caregiver Education, Self-Care/Home Management,Soft Tissue Mobilization, Therapeutic Activities, Therapeutic Exercises Modalities Cold Pack/Ice Massage,Electric Stimulation,Hot Packs, Ultrasound Next Visit Focus/Plan Next Note Type Treatment Note Next Visit Plan Recheck HEP. POC: Progress strength, endurance and mobility as tolerated, work on balance per POC.
--- NOTE | 2023-02-11 16:22 | PT.OTRE ---
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 Hypogonadism in male (04/23/16) Pure hypercholesterolemia (07/30/16) Surgical History (Last Reviewed 02/02/22 @ 10:15 by Tristin Zavala PA-C) H/O surgical amputation of finger H/O vasectomy Hx of tonsillectomy Visit Care Team Role Provider Type Ronald Felipe MD Attending Provider Physician Family Provider Primary Care Provider Referring Provider Specialty: Internal Medicine Pediatrics Address: [address] [place] [address], [facility] Email: [email or web address] [facility] Re-Evaluation PT-OP-A Visit Information Start: 11/20/22 13:51 Freq: Status: Active Protocol: Document 02/11/23 15:16 SAK (Rec: 02/11/23 16:21 SAK [id number]) Out-Patient Physical Therapy Visit Information Visit Information Visit Type Treatment Note Visit Start Time 15:16 Visit Stop Time 14:12 Total Visit Minutes 56 Visit Number 19 Number of SYSTEM AUDITOR Visits 0 Evaluation Information Evaluation Date 11/20/22 Precautions Precautions Fall risk, gait belt, close SBA-CGA for ambulation. Pt often requires rest break to/ from tx room to waiting room at one of the chairs along the way PT-OP-B Current Condition Start: 11/20/22 13:51 Freq: Status: Active Protocol: Document 11/28/22 12:15 AM (Rec: 11/28/22 13:39 AM [id number]) Current Condition History of Current Condition Onset Date Chronic LBP, fusion in Nov Current Complaints low back pain, weakness. History of Current Condition Pt had lumbar fusion L4-5-S1 on January 30, 2022. Pt reports that he continues to have a lot of pain. Pt reports that he feels that he healed up nursing home. Pt has appt with surgeon tomorrow. Pt reports symptoms are intermittent. Pt is primarily at home walking with walking sticks. Pt only leaves house for doctors appointments. Pt reports that he has had falls recently. Pt reports that he cannot build strength. Pt reports low back, tailbone and hip pain. Pt uses FWW when ambulating outside of house. Pt reports that he always feels better if he sits down. Pt reports 3 falls in the last month. Pt reports that he has been riding recumbent bike for 30 min with goal to do this 6x/day. Prior Treatments and Tests Pt had MRI. PT-OP-C Subjective Start: 11/20/22 13:51 Freq: Status: Active Protocol: Document 02/11/23 15:16 SAK (Rec: 02/11/23 16:21 SAK [id number]) OP-PT Subjective Patient Comments Patient Comments Riding recumbant bike 30 min per day, can stand for up to 2 -3 min at home. Reports his feet have been swelling. Spends most of day sitting, doesn't use recline feature on his recliner due to dog getting upset. Wants to be able to get up from the ground if he falls, thinks he fell 1x this week; I just run out of energy. PT-OP-D Balance Start: 11/20/22 13:51 Freq: Status: Active Protocol: Document 11/20/22 13:52 AM (Rec: 11/20/22 16:37 AM [id number]) Balance Tests Single Limb Standing Single Limb- Right unable to lift LE Single Limb- Left unable to lift LE PT-OP-E Functional Tests Start: 11/20/22 13:51 Freq: Status: Active Protocol: Document 11/20/22 13:52 AM (Rec: 11/20/22 16:37 AM [id number]) Functional Tests 30 Second Sit to Stand Test Score 0 Comments Unable to do without use of UE PT-OP-G Mobility & Gait Start: 11/20/22 13:51 Freq: Status: Active Protocol: Document 11/20/22 13:52 AM (Rec: 11/20/22 16:37 AM [id number]) OP Mobility Evaluation Bed Mobility Supine to and from Sit Min-Mod A with transfer from sit-supine OP Gait Assessment Gait Gait Assistance Required: Independent,Standby Assistance Assistive Devices Assistive Device None,Front Wheeled Walker Gait Deviations General Gait Pattern Antalgic,Flexed Trunk Factors Limiting Gait Function Factors Limiting Gait Function Decreased Activity Tolerance, Decreased Strength,Pain,Poor Balance PT-OP-J Posture/Palpation/Skin Start: 11/20/22 13:51 Freq: Status: Active Protocol: Document 11/20/22 13:52 AM (Rec: 11/20/22 16:37 AM [id number]) Posture Evaluation Position Standing L-Spine Posture Flattened Palpation Assessment Location Low back Palpation Location lumbar paraspinals Palpation Findings Tenderness PT-OP-M Strength Start: 11/20/22 13:51 Freq: Status: Active Protocol: Document 01/13/23 15:20 AM (Rec: 01/13/23 16:27 AM [id number]) Hip Strength Hip Manual Muscle Testing Right Flexion (L2) 3+ Fair+ Extension (S1) 4- Good- Abduction 3+ Fair+ Adduction 4- Good- External Rotation 3+ Fair+ Internal Rotation 3+ Fair+ Left Flexion (L2) 3+ Fair+ Extension (S1) 4- Good- Abduction 3+ Fair+ Adduction 4- Good- External Rotation 3+ Fair+ Internal Rotation 3+ Fair+ Knee Strength Knee Manual Muscle Testing Right Flexion (S2) 4- Good- Extension (L3) 4- Good- Left Flexion (S2) 4- Good- Extension (L3) 4- Good- PT-OP-Q Treatments Start: 11/20/22 13:51 Freq: Status: Active Protocol: Document 02/11/23 15:16 [facility] (Rec: 02/11/23 16:21 SAK [id number]) Therapeutic Exercises Supine Exercises single leg lowering Supine Exercise Name Reviewed HEP: SLR Side bilateral Resistance alternate Reps/Minutes 5 reps x3 sets Comments cues for keeping pelvis in PPT , TKE and LE not higher than bent knee gluteal sets Supine Exercise Name minimal lift Reps/Minutes 15x, 3 SH Comments good form Lower abdominal cane pull down Resistance purple TB Equipment Used dowel Reps/Minutes 3x10 Comments cues for TA Sitting Exercises STS Sitting Exercise Name STS Equipment Used chair Reps/Minutes 5x Comments cues for hip hinge to avoid posterior LOB, used hands Seated Marches Reps/Minutes x10 LAQ Side bilateral Reps/Minutes 10x Calf raises Sitting Exercise Name Calf raise with BUE resistance Reps/Minutes 3x10 Standing Exercises wall posture Reps/Minutes 2 min Comments use of wall for postural reference, frequent cues for core and quad engagem Stationary standing Standing Exercise Name Without UE support Equipment Used in // bars Reps/Minutes x4 min to fatigue Comments distracted with therapy ball push 65 cm Standing march Side bilateral Equipment Used parallel bars Reps/Minutes x10 Comments cues for abdominal control Calf raises Standing Exercise Name and toe raises Equipment Used parallel bars Reps/Minutes 10x Comments cues for decreased UE support Gait Training Gait Activity parallel Description in parallel bars Device Used 0-1 bar Level of Assistance CGA Surface firm Distance/Duration 10 ft x3 fwd, 10 ft x1 bck Treatment Focus upright posture, heelstrike, core activation FWW Device Used FWW Level of Assistance CGA Distance/Duration 140 ft, to/from waiting room Treatment Focus foot clearance, stride, elongated posturing, proximity to FWW Comments . Cued elongated posture, proximity to FWW Self-Care/Home Management Treatment Education Other Education increase frequency of change of position, use recline feature of recliner, avoid sitting position for more than 1 hr. Use of heat encouraged at home . PT-OP-R Modalities Start: 11/20/22 13:51 Freq: Status: Active Protocol: Document 02/11/23 15:16 [facility] (Rec: 02/11/23 16:21 [facility] [id number]) Hot Pack/Cold Pack Treatment MHP Location LS end tx. Patient Position Supine Treatment Duration (minutes) 10 Patient Tolerance Good Comments good feeling w/ ther ex. PT-OP-T Assessment and Plan Start: 11/20/22 13:51 Freq: Status: Active Protocol: Document 02/11/23 15:16 [facility] (Rec: 02/11/23 16:21 [facility] [id number]) Physical Therapy Assessment Goals HEP Impairment Pt not currently participating in strengthening program. Pt is riding recumbent bike. Usp Goal (LTG) Pt independent with HEP 02/11/23: goal progress, though patient states I tend to forget, spends majority of day sitting. LTG Duration 02/12/23 Standing Impairment Pt able to stand for 5 min before need to sit secondary to pain. Short Term Goal (STG) Pt able to stand for 10 min before need to sit secondary to pain. 12/18/22: Pt progressing towards goal. Pt able to stand for 6 min before need to sit. 02/12/24: only able to stand 4 min today, stressed importance of inc standing, walking and HEP STG Duration 03/14/23 Usp Goal (LTG) Pt able to stand for 20 min before need to sit secondary to pain. 01/13/23:Pt able to stand for 6 min without UE support before need to sit secondary to weakness. 02/12/24: limited to 4 min today LTG Duration 04/14/23 Pain Impairment Pt reports pain at 10/10 at worst. Short Term Goal (STG) Pt with reported pain at 7/10 at worst. 12/18/22: Pt reports pain at 6 -7/10 at the worst. Goal met STG Duration goal met Usp Goal (LTG) Pt with reported pain at 4/10 at worst. 01/13/23: Pt with pain at 3-4/ 10 at today's tx. Pt reports that there was 1 day that he did not take pain meds before bed and woke up with pain at 6 -7/10. 02/11/23: reports pain variable, varies 3-7/10 LTG Duration 02/12/23 Strength Impairment Pt with LE strength grossly at 3+/5. Short Term Goal (STG) Pt with LE strength grossly at 4-/5. 12/18/22: Progressing towards goal. Pt with 3+to 4-/5. 01/13/23: Pt with 3+ to 4-/5 LE strength grossly. Pt with endurance deficits. 02/11/23: strength 4-/5 ankles and knees, 3+/5 in hips STG Duration 03/14/23 Durable Medical Equipment Technician Goal (LTG) Pt with LE grossly at 4/5. LTG Duration 04/14/23 JOSIAH Impairment Pt with Oswestry score of 68 Short Term Goal (STG) Pt with JOSIAH score of 55 12/18/22: GOAL MET-Pt with score of 54 on Oswestry. 01/13/23: Progressing towards LTG with score of 48%. STG Duration 12/18/22-achieved Usp Goal (LTG) Pt with JOSIAH Score of 45 LTG Duration 02/12/23 LEFS Impairment Pt with LEFS score of 10/80. Short Term Goal (STG) Pt with LEFS score of 30/80 12/18/22: Pt with score of 17/ 80. Improved, though continues to progress towards goal. 02/11/23: LEFS 21/80, goal progress STG Duration 03/14/23 Usp Goal (LTG) Pt with LEFS score of 45/80. LTG Duration 04/14/23 Assessment Summary Assessment Stressed importance of increased activity and more frequent change in position with avoiding prolonged sitting. Patient fatigues easily, required multiple seated rest breaks. Standing characterized by excess knee flex, posterior lean, anterior head and rounded spine. Trial use of wall posture for reference. Recommend continued skilled PT to help Jamal achieve his PT goals and return to more active lifestyle. Physical Therapy Plan Frequency and Duration Frequency of Treatment 2x/Week Duration of treatment (weeks) 12 Plan of Care Start Date 02/11/23 Plan of Care End Date 04/14/23 Therapeutic Interventions Therapeutic Interventions Balance Training,Coordination Training,Gait Training,Home Exercise Program,Joint Mobilizations,Manual Therapy, Neuromuscular Re-education, Patient/Caregiver Education, Self-Care/Home Management,Soft Tissue Mobilization, Therapeutic Activities, Therapeutic Exercises Modalities Cold Pack/Ice Massage,Electric Stimulation,Hot Packs, Ultrasound Next Visit Focus/Plan Next Note Type Treatment Note Next Visit Plan Continue PT for strengthening, core stabilization, functional mobility safety and activity tolerance
--- NOTE | 2023-02-13 16:58 | PT.OTN ---
Current Diagnoses Other symptoms and signs involving the musculoskeletal system (02/13/23) Arthrodesis status (02/13/23) Physical Therapy Treatment Note PT-OP-A Visit Information Start: 11/20/22 13:51 Freq: Status: Active Protocol: Document 02/13/23 12:48 SW (Rec: 02/13/23 13:45 SW [id number]) Out-Patient Physical Therapy Visit Information Visit Information Visit Type Treatment Note Visit Start Time 15:00 Visit Stop Time 15:50 Total Visit Minutes 50 Visit Number 20 Number of ACCOUNTANT CERTIFIED PUBLIC Visits 1 Precautions Precautions Fall risk, gait belt, close SBA-CGA for ambulation. Pt often requires rest break to/ from tx room to waiting room at one of the chairs along the way PT-OP-B Current Condition Start: 11/20/22 13:51 Freq: Status: Active Protocol: Document 11/28/22 12:15 AM (Rec: 11/28/22 13:39 AM [id number]) Current Condition History of Current Condition Onset Date Chronic LBP, fusion in Nov Current Complaints low back pain, weakness. History of Current Condition Pt had lumbar fusion L4-5-S1 on January 30, 2022. Pt reports that he continues to have a lot of pain. Pt reports that he feels that he healed up senior living. Pt has appt with surgeon tomorrow. Pt reports symptoms are intermittent. Pt is primarily at home walking with walking sticks. Pt only leaves house for doctors appointments. Pt reports that he has had falls recently. Pt reports that he cannot build strength. Pt reports low back, tailbone and hip pain. Pt uses FWW when ambulating outside of house. Pt reports that he always feels better if he sits down. Pt reports 3 falls in the last month. Pt reports that he has been riding recumbent bike for 30 min with goal to do this 6x/day. Prior Treatments and Tests Pt had MRI. PT-OP-C Subjective Start: 11/20/22 13:51 Freq: Status: Active Protocol: Document 02/13/23 12:48 SW (Rec: 02/13/23 13:45 SW [id number]) OP-PT Subjective Patient Comments Patient Comments Pt reports fatigue today, almost fell asleep before coming to therapy. PT-OP-D Balance Start: 11/20/22 13:51 Freq: Status: Active Protocol: Document 11/20/22 13:52 AM (Rec: 11/20/22 16:37 AM [id number]) Balance Tests Single Limb Standing Single Limb- Right unable to lift LE Single Limb- Left unable to lift LE PT-OP-E Functional Tests Start: 11/20/22 13:51 Freq: Status: Active Protocol: Document 11/20/22 13:52 AM (Rec: 11/20/22 16:37 AM [id number]) Functional Tests 30 Second Sit to Stand Test Score 0 Comments Unable to do without use of UE PT-OP-G Mobility & Gait Start: 11/20/22 13:51 Freq: Status: Active Protocol: Document 11/20/22 13:52 AM (Rec: 11/20/22 16:37 AM [id number]) OP Mobility Evaluation Bed Mobility Supine to and from Sit Min-Mod A with transfer from sit-supine OP Gait Assessment Gait Gait Assistance Required: Independent,Standby Assistance Assistive Devices Assistive Device None,Front Wheeled Walker Gait Deviations General Gait Pattern Antalgic,Flexed Trunk Factors Limiting Gait Function Factors Limiting Gait Function Decreased Activity Tolerance, Decreased Strength,Pain,Poor Balance PT-OP-J Posture/Palpation/Skin Start: 11/20/22 13:51 Freq: Status: Active Protocol: Document 11/20/22 13:52 AM (Rec: 11/20/22 16:37 AM [id number]) Posture Evaluation Position Standing L-Spine Posture Flattened Palpation Assessment Location Low back Palpation Location lumbar paraspinals Palpation Findings Tenderness PT-OP-M Strength Start: 11/20/22 13:51 Freq: Status: Active Protocol: Document 01/13/23 15:20 AM (Rec: 01/13/23 16:27 AM [id number]) Hip Strength Hip Manual Muscle Testing Right Flexion (L2) 3+ Fair+ Extension (S1) 4- Good- Abduction 3+ Fair+ Adduction 4- Good- External Rotation 3+ Fair+ Internal Rotation 3+ Fair+ Left Flexion (L2) 3+ Fair+ Extension (S1) 4- Good- Abduction 3+ Fair+ Adduction 4- Good- External Rotation 3+ Fair+ Internal Rotation 3+ Fair+ Knee Strength Knee Manual Muscle Testing Right Flexion (S2) 4- Good- Extension (L3) 4- Good- Left Flexion (S2) 4- Good- Extension (L3) 4- Good- PT-OP-Q Treatments Start: 11/20/22 13:51 Freq: Status: Active Protocol: Document 02/13/23 12:48 SW (Rec: 02/13/23 13:45 SW [id number]) Therapeutic Exercises Supine Exercises single leg lowering Supine Exercise Name SLR, cues for decreased range to maintain quad contraction Side bilateral Resistance alternate Reps/Minutes 5 reps x3 sets Comments cues for keeping pelvis in PPT , TKE and LE not higher than bent knee gluteal sets Supine Exercise Name minimal lift Reps/Minutes 15x, 3 SH Comments glute activation prior to lift Lower abdominal cane pull down Resistance purple TB Equipment Used dowel Reps/Minutes 3x10 Comments cues for TA Sitting Exercises STS Sitting Exercise Name STS Equipment Used chair Reps/Minutes 5x Comments cues for hip hinge to avoid posterior LOB, used hands Standing Exercises Side step Standing Exercise Name Side step Equipment Used in // bars Reps/Minutes 4x6' Comments cues for posture, knee/hip ext Standing march Side bilateral Equipment Used parallel bars Reps/Minutes x10 Comments cues for abdominal control Calf raises Standing Exercise Name and toe raises Equipment Used parallel bars Reps/Minutes 10x Comments cues for decreased UE support Gait Training Gait Activity parallel Description in parallel bars Device Used 1 bar Level of Assistance CGA Surface firm Distance/Duration 10 ft x 6 Treatment Focus upright posture, heelstrike, core activation PT-OP-R Modalities Start: 11/20/22 13:51 Freq: Status: Active Protocol: Document 02/13/23 12:48 SW (Rec: 02/13/23 16:46 [id number]) Hot Pack/Cold Pack Treatment MHP Location LS end tx. Patient Position Supine Treatment Duration (minutes) 10 Patient Tolerance Good Comments good feeling w/ ther ex. PT-OP-T Assessment and Plan Start: 11/20/22 13:51 Freq: Status: Active Protocol: Document 02/13/23 12:48 SW (Rec: 02/13/23 13:45 SW [id number]) Physical Therapy Assessment Goals HEP Impairment Pt not currently participating in strengthening program. Pt is riding recumbent bike. Custodial Goal (LTG) Pt independent with HEP 02/11/23: goal progress, though patient states I tend to forget, spends majority of day sitting. LTG Duration 02/12/23 Standing Impairment Pt able to stand for 5 min before need to sit secondary to pain. Short Term Goal (STG) Pt able to stand for 10 min before need to sit secondary to pain. 12/18/22: Pt progressing towards goal. Pt able to stand for 6 min before need to sit. 02/12/24: only able to stand 4 min today, stressed importance of inc standing, walking and HEP STG Duration 03/14/23 Custodial Goal (LTG) Pt able to stand for 20 min before need to sit secondary to pain. 01/13/23:Pt able to stand for 6 min without UE support before need to sit secondary to weakness. 02/12/24: limited to 4 min today LTG Duration 04/14/23 Pain Impairment Pt reports pain at 10/10 at worst. Short Term Goal (STG) Pt with reported pain at 7/10 at worst. 12/18/22: Pt reports pain at 6 -7/10 at the worst. Goal met STG Duration goal met Custodial Goal (LTG) Pt with reported pain at 4/10 at worst. 01/13/23: Pt with pain at 3-4/ 10 at today's tx. Pt reports that there was 1 day that he did not take pain meds before bed and woke up with pain at 6 -7/10. 02/11/23: reports pain variable, varies 3-7/10 LTG Duration 02/12/23 Strength Impairment Pt with LE strength grossly at 3+/5. Short Term Goal (STG) Pt with LE strength grossly at 4-/5. 12/18/22: Progressing towards goal. Pt with 3+to 4-/5. 01/13/23: Pt with 3+ to 4-/5 LE strength grossly. Pt with endurance deficits. 02/11/23: strength 4-/5 ankles and knees, 3+/5 in hips STG Duration 03/14/23 Claims Technician Goal (LTG) Pt with LE grossly at 4/5. LTG Duration 04/14/23 JOSIAH Impairment Pt with Oswestry score of 68 Short Term Goal (STG) Pt with JOSIAH score of 55 12/18/22: GOAL MET-Pt with score of 54 on Oswestry. 01/13/23: Progressing towards LTG with score of 48%. STG Duration 12/18/22-achieved Claims Technician Goal (LTG) Pt with JOSIAH Score of 45 LTG Duration 02/12/23 LEFS Impairment Pt with LEFS score of 10/80. Short Term Goal (STG) Pt with LEFS score of 30/80 12/18/22: Pt with score of 17/ 80. Improved, though continues to progress towards goal. 02/11/23: LEFS 21/80, goal progress STG Duration 03/14/23 Claims Technician Goal (LTG) Pt with LEFS score of 45/80. LTG Duration 04/14/23 Assessment Summary Assessment Pt tolerated increased standing exercises this session, though still requiring frequent rest breaks throughout session between exercises d/t fatigue. Educated pt on safety with AD keeping closer to body, improved posture with correct use of AD. Pt improved foot clearance and heel strike with gait training this session, minimal foot scuff on floor post session compared to ambulating into session today, mod cues required for mainting upright posture. Continued therex for strengthening and endurance. Plan to assess pt tolerance next session, pt may benefit from continued progression in standing if tolerated well. Pt reports compliance with HEP between sessions, encouraged continued carryover. Physical Therapy Plan Frequency and Duration Frequency of Treatment 2x/Week Duration of treatment (weeks) 12 Plan of Care Start Date 02/11/23 Plan of Care End Date 04/14/23 Therapeutic Interventions Therapeutic Interventions Balance Training,Coordination Training,Gait Training,Home Exercise Program,Joint Mobilizations,Manual Therapy, Neuromuscular Re-education, Patient/Caregiver Education, Self-Care/Home Management,Soft Tissue Mobilization, Therapeutic Activities, Therapeutic Exercises Modalities Cold Pack/Ice Massage,Electric Stimulation,Hot Packs, Ultrasound Next Visit Focus/Plan Next Note Type Treatment Note Next Visit Plan Continue PT for strengthening, core stabilization, functional mobility safety and activity tolerance
--- NOTE | 2023-02-18 16:09 | PT.OTN ---
Current Diagnoses Other symptoms and signs involving the musculoskeletal system (02/18/23) Arthrodesis status (02/18/23) Physical Therapy Treatment Note PT-OP-A Visit Information Start: 11/20/22 13:51 Freq: Status: Active Protocol: Document 02/18/23 13:02 [facility] (Rec: 02/18/23 13:45 [facility] [id number]) Out-Patient Physical Therapy Visit Information Visit Information Visit Type Treatment Note Visit Start Time 15:00 Visit Stop Time 15:55 Total Visit Minutes 55 Visit Number 21 Number of DISPOSAL WORKER Visits 0 Precautions Precautions Fall risk, gait belt, close SBA-CGA for ambulation. Pt often requires rest break to/ from tx room to waiting room at one of the chairs along the way PT-OP-B Current Condition Start: 11/20/22 13:51 Freq: Status: Active Protocol: Document 11/28/22 12:15 AM (Rec: 11/28/22 13:39 AM [id number]) Current Condition History of Current Condition Onset Date Chronic LBP, fusion in Nov Current Complaints low back pain, weakness. History of Current Condition Pt had lumbar fusion L4-5-S1 on January 30, 2022. Pt reports that he continues to have a lot of pain. Pt reports that he feels that he healed up [facility]. Pt has appt with surgeon tomorrow. Pt reports symptoms are intermittent. Pt is primarily at home walking with walking sticks. Pt only leaves house for doctors appointments. Pt reports that he has had falls recently. Pt reports that he cannot build strength. Pt reports low back, tailbone and hip pain. Pt uses FWW when ambulating outside of house. Pt reports that he always feels better if he sits down. Pt reports 3 falls in the last month. Pt reports that he has been riding recumbent bike for 30 min with goal to do this 6x/day. Prior Treatments and Tests Pt had MRI. PT-OP-C Subjective Start: 11/20/22 13:51 Freq: Status: Active Protocol: Document 02/18/23 13:02 [facility] (Rec: 02/18/23 13:45 [facility] [id number]) OP-PT Subjective Patient Comments Patient Comments Patient reports higher level of pain today, used heat and took pain medication. Stays home except for medical appointments, uses 1 trekking pole in house, only uses walker when attending PT or other medical appointments. PT-OP-D Balance Start: 11/20/22 13:51 Freq: Status: Active Protocol: Document 11/20/22 13:52 AM (Rec: 11/20/22 16:37 AM [id number]) Balance Tests Single Limb Standing Single Limb- Right unable to lift LE Single Limb- Left unable to lift LE PT-OP-E Functional Tests Start: 11/20/22 13:51 Freq: Status: Active Protocol: Document 11/20/22 13:52 AM (Rec: 11/20/22 16:37 AM [id number]) Functional Tests 30 Second Sit to Stand Test Score 0 Comments Unable to do without use of UE PT-OP-G Mobility & Gait Start: 11/20/22 13:51 Freq: Status: Active Protocol: Document 11/20/22 13:52 AM (Rec: 11/20/22 16:37 AM [id number]) OP Mobility Evaluation Bed Mobility Supine to and from Sit Min-Mod A with transfer from sit-supine OP Gait Assessment Gait Gait Assistance Required: Independent,Standby Assistance Assistive Devices Assistive Device None,Front Wheeled Walker Gait Deviations General Gait Pattern Antalgic,Flexed Trunk Factors Limiting Gait Function Factors Limiting Gait Function Decreased Activity Tolerance, Decreased Strength,Pain,Poor Balance PT-OP-J Posture/Palpation/Skin Start: 11/20/22 13:51 Freq: Status: Active Protocol: Document 11/20/22 13:52 AM (Rec: 11/20/22 16:37 AM [id number]) Posture Evaluation Position Standing L-Spine Posture Flattened Palpation Assessment Location Low back Palpation Location lumbar paraspinals Palpation Findings Tenderness PT-OP-M Strength Start: 11/20/22 13:51 Freq: Status: Active Protocol: Document 01/13/23 15:20 AM (Rec: 01/13/23 16:27 AM [id number]) Hip Strength Hip Manual Muscle Testing Right Flexion (L2) 3+ Fair+ Extension (S1) 4- Good- Abduction 3+ Fair+ Adduction 4- Good- External Rotation 3+ Fair+ Internal Rotation 3+ Fair+ Left Flexion (L2) 3+ Fair+ Extension (S1) 4- Good- Abduction 3+ Fair+ Adduction 4- Good- External Rotation 3+ Fair+ Internal Rotation 3+ Fair+ Knee Strength Knee Manual Muscle Testing Right Flexion (S2) 4- Good- Extension (L3) 4- Good- Left Flexion (S2) 4- Good- Extension (L3) 4- Good- PT-OP-Q Treatments Start: 11/20/22 13:51 Freq: Status: Active Protocol: Document 02/18/23 13:02 [facility] (Rec: 02/18/23 13:45 [facility] [id number]) Therapeutic Exercises Supine Exercises piriformis stretch Supine Exercise Name added to HEP Reps/Minutes 2x30 figure 4 stretch Supine Exercise Name added to HEP Reps/Minutes 2x30 Sitting Exercises hamstring curl Sitting Exercise Name added to HEP Equipment Used L2 TB Reps/Minutes 10x hamstring stretch Sitting Exercise Name added to HEP Equipment Used chair Reps/Minutes 2x30 STS Sitting Exercise Name STS Equipment Used chair Reps/Minutes 5x Comments cues for hip hinge to avoid posterior LOB, used hands LAQ Sitting Exercise Name added to HEP Side bilateral Equipment Used L2 TB Reps/Minutes 10x Standing Exercises hamstring curl Reps/Minutes 5x2 Chair squat Equipment Used chair Reps/Minutes 5x Comments GGA, UE support prn Gait Training Gait Activity [employer] poles Device Used 2 [employer] poles Level of Assistance CG to min assist Surface firm Treatment Focus safety, upright posture Comments 75'x1, 50'x1,40'x1 cues for sequencing, trial use in left UE (uses in right at home) Self-Care/Home Management Treatment Education Patient Education Home Exercise Program,Safety Other Education updated HEP encouraged increased time out of chair, inc walking PT-OP-R Modalities Start: 11/20/22 13:51 Freq: Status: Active Protocol: Document 02/18/23 13:02 [facility] (Rec: 02/18/23 13:45 [facility] [id number]) Hot Pack/Cold Pack Treatment MHP Location LS end tx. Patient Position Supine Treatment Duration (minutes) 10 Patient Tolerance Good Comments good feeling w/ ther ex. PT-OP-T Assessment and Plan Start: 11/20/22 13:51 Freq: Status: Active Protocol: Document 02/18/23 13:02 [facility] (Rec: 02/18/23 13:45 [facility] [id number]) Physical Therapy Assessment Goals HEP Impairment Pt not currently participating in strengthening program. Pt is riding recumbent bike. 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 LTG Duration 02/12/23 Standing Impairment Pt able to stand for 5 min before need to sit secondary to pain. Short Term Goal (STG) Pt able to stand for 10 min before need to sit secondary to pain. 12/18/22: Pt progressing towards goal. Pt able to stand for 6 min before need to sit. 02/12/24: only able to stand 4 min today, stressed importance of inc standing, walking and HEP STG Duration 03/14/23 Mva Reactor Operator Goal (LTG) Pt able to stand for 20 min before need to sit secondary to pain. 01/13/23:Pt able to stand for 6 min without UE support before need to sit secondary to weakness. 02/12/24: limited to 4 min today LTG Duration 04/14/23 Pain Impairment Pt reports pain at 10/10 at worst. Short Term Goal (STG) Pt with reported pain at 7/10 at worst. 12/18/22: Pt reports pain at 6 -7/10 at the worst. Goal met STG Duration goal met Retirement Goal (LTG) Pt with reported pain at 4/10 at worst. 01/13/23: Pt with pain at 3-4/ 10 at today's tx. Pt reports that there was 1 day that he did not take pain meds before bed and woke up with pain at 6 -7/10. 02/11/23: reports pain variable, varies 3-7/10 LTG Duration 02/12/23 Strength Impairment Pt with LE strength grossly at 3+/5. Short Term Goal (STG) Pt with LE strength grossly at 4-/5. 12/18/22: Progressing towards goal. Pt with 3+to 4-/5. 01/13/23: Pt with 3+ to 4-/5 LE strength grossly. Pt with endurance deficits. 02/11/23: strength 4-/5 ankles and knees, 3+/5 in hips STG Duration 03/14/23 Mva Reactor Operator Goal (LTG) Pt with LE grossly at 4/5. LTG Duration 04/14/23 JOSIAH Impairment Pt with Oswestry score of 68 Short Term Goal (STG) Pt with JOSIAH score of 55 12/18/22: GOAL MET-Pt with score of 54 on Oswestry. 01/13/23: Progressing towards LTG with score of 48%. STG Duration 12/18/22-achieved Retirement Goal (LTG) Pt with JOSIAH Score of 45 LTG Duration 02/12/23 LEFS Impairment Pt with LEFS score of 10/80. Short Term Goal (STG) Pt with LEFS score of 30/80 12/18/22: Pt with score of 17/ 80. Improved, though continues to progress towards goal. 02/11/23: LEFS 21/80, goal progress STG Duration 03/14/23 Retirement Goal (LTG) Pt with LEFS score of 45/80. LTG Duration 04/14/23 Assessment Summary Assessment Increased gait tolerance, use of trekking pole with CG to min assist, cues for increased foot clearance. Progressed HEP today with updated handout issued. Physical Therapy Plan Frequency and Duration Frequency of Treatment 2x/Week Duration of treatment (weeks) 12 Plan of Care Start Date 02/11/23 Plan of Care End Date 04/14/23 Therapeutic Interventions Therapeutic Interventions Balance Training,Coordination Training,Gait Training,Home Exercise Program,Joint Mobilizations,Manual Therapy, Neuromuscular Re-education, Patient/Caregiver Education, Self-Care/Home Management,Soft Tissue Mobilization, Therapeutic Activities, Therapeutic Exercises Modalities Cold Pack/Ice Massage,Electric Stimulation,Hot Packs, Ultrasound Next Visit Focus/Plan Next Note Type Treatment Note Next Visit Plan Patient coming for 1 further PT session then requests discharge due to concerns of safety in winter weather. Plans to return in a few months.
--- NOTE | 2023-02-20 13:58 | PT.OTN ---
Current Diagnoses Other symptoms and signs involving the musculoskeletal system (02/20/23) Arthrodesis status (02/20/23) Physical Therapy Treatment Note PT-OP-A Visit Information Start: 11/20/22 13:51 Freq: Status: Active Protocol: Document 02/20/23 12:57 SW (Rec: 02/20/23 13:58 SW [id number]) Out-Patient Physical Therapy Visit Information Visit Information Visit Type Treatment Note Visit Start Time 13:00 Visit Stop Time 13:40 Total Visit Minutes 50 Visit Number 22 Number of PRODUCE SPECIALIST Visits 1 Precautions Precautions Fall risk, gait belt, close SBA-CGA for ambulation. Pt often requires rest break to/ from tx room to waiting room at one of the chairs along the way PT-OP-B Current Condition Start: 11/20/22 13:51 Freq: Status: Active Protocol: Document 11/28/22 12:15 AM (Rec: 11/28/22 13:39 AM [id number]) Current Condition History of Current Condition Onset Date Chronic LBP, fusion in Nov Current Complaints low back pain, weakness. History of Current Condition Pt had lumbar fusion L4-5-S1 on January 30, 2022. Pt reports that he continues to have a lot of pain. Pt reports that he feels that he healed up intermediate. Pt has appt with surgeon tomorrow. Pt reports symptoms are intermittent. Pt is primarily at home walking with walking sticks. Pt only leaves house for doctors appointments. Pt reports that he has had falls recently. Pt reports that he cannot build strength. Pt reports low back, tailbone and hip pain. Pt uses FWW when ambulating outside of house. Pt reports that he always feels better if he sits down. Pt reports 3 falls in the last month. Pt reports that he has been riding recumbent bike for 30 min with goal to do this 6x/day. Prior Treatments and Tests Pt had MRI. PT-OP-C Subjective Start: 11/20/22 13:51 Freq: Status: Active Protocol: Document 02/20/23 12:57 SW (Rec: 02/20/23 13:58 SW [id number]) OP-PT Subjective Patient Comments Patient Comments Pt reports stiff today, but feels less stiff after moving around. Pt reports increased movement at home the last couple days and surprised that he was not as tired as he thought he would be. Pt requests discharge d/t concerns with winter weather. PT-OP-D Balance Start: 11/20/22 13:51 Freq: Status: Active Protocol: Document 11/20/22 13:52 AM (Rec: 11/20/22 16:37 AM [id number]) Balance Tests Single Limb Standing Single Limb- Right unable to lift LE Single Limb- Left unable to lift LE PT-OP-E Functional Tests Start: 11/20/22 13:51 Freq: Status: Active Protocol: Document 11/20/22 13:52 AM (Rec: 11/20/22 16:37 AM [id number]) Functional Tests 30 Second Sit to Stand Test Score 0 Comments Unable to do without use of UE PT-OP-G Mobility & Gait Start: 11/20/22 13:51 Freq: Status: Active Protocol: Document 11/20/22 13:52 AM (Rec: 11/20/22 16:37 AM [id number]) OP Mobility Evaluation Bed Mobility Supine to and from Sit Min-Mod A with transfer from sit-supine OP Gait Assessment Gait Gait Assistance Required: Independent,Standby Assistance Assistive Devices Assistive Device None,Front Wheeled Walker Gait Deviations General Gait Pattern Antalgic,Flexed Trunk Factors Limiting Gait Function Factors Limiting Gait Function Decreased Activity Tolerance, Decreased Strength,Pain,Poor Balance PT-OP-J Posture/Palpation/Skin Start: 11/20/22 13:51 Freq: Status: Active Protocol: Document 11/20/22 13:52 AM (Rec: 11/20/22 16:37 AM [id number]) Posture Evaluation Position Standing L-Spine Posture Flattened Palpation Assessment Location Low back Palpation Location lumbar paraspinals Palpation Findings Tenderness PT-OP-M Strength Start: 11/20/22 13:51 Freq: Status: Active Protocol: Document 01/13/23 15:20 AM (Rec: 01/13/23 16:27 AM [id number]) Hip Strength Hip Manual Muscle Testing Right Flexion (L2) 3+ Fair+ Extension (S1) 4- Good- Abduction 3+ Fair+ Adduction 4- Good- External Rotation 3+ Fair+ Internal Rotation 3+ Fair+ Left Flexion (L2) 3+ Fair+ Extension (S1) 4- Good- Abduction 3+ Fair+ Adduction 4- Good- External Rotation 3+ Fair+ Internal Rotation 3+ Fair+ Knee Strength Knee Manual Muscle Testing Right Flexion (S2) 4- Good- Extension (L3) 4- Good- Left Flexion (S2) 4- Good- Extension (L3) 4- Good- PT-OP-Q Treatments Start: 11/20/22 13:51 Freq: Status: Active Protocol: Document 02/20/23 12:57 SW (Rec: 02/20/23 13:58 [id number]) Therapeutic Exercises Supine Exercises piriformis stretch Supine Exercise Name Reviewed for HEP Reps/Minutes 2x30 figure 4 stretch Supine Exercise Name Reviewed for HEP Reps/Minutes 2x30 Sitting Exercises hamstring curl Sitting Exercise Name Reviewed for HEP Equipment Used L2 TB Reps/Minutes 10x hamstring stretch Sitting Exercise Name Reviewed for HEP Equipment Used chair Reps/Minutes 2x30 STS Sitting Exercise Name STS Equipment Used chair Reps/Minutes 5x Comments cues for hip hinge to avoid posterior LOB, used hands Standing Exercises hamstring curl Reps/Minutes 5x2 Gait Training Gait Activity trekking poles Device Used 2 OONikking poles Level of Assistance CG to min assist Surface firm Treatment Focus safety, upright posture Comments 75'x1, 70'x1, 40'x1 cues for sequencing PT-OP-R Modalities Start: 11/20/22 13:51 Freq: Status: Active Protocol: Document 02/20/23 12:57 SW (Rec: 02/20/23 13:58 [id number]) Hot Pack/Cold Pack Treatment MHP Location LS end tx. Patient Position Supine Treatment Duration (minutes) 10 Patient Tolerance Good Comments good feeling w/ ther ex. PT-OP-T Assessment and Plan Start: 11/20/22 13:51 Freq: Status: Active Protocol: Document 02/20/23 12:57 SW (Rec: 02/20/23 13:58 [id number]) Physical Therapy Assessment Goals HEP Impairment Pt not currently participating in strengthening program. Pt is riding recumbent bike. Prison Goal (LTG) Pt independent with HEP 02/11/23: goal progress, though patient states I tend to forget, spends majority of day sitting. LTG Duration 02/12/23 Standing Impairment Pt able to stand for 5 min before need to sit secondary to pain. Short Term Goal (STG) Pt able to stand for 10 min before need to sit secondary to pain. 12/18/22: Pt progressing towards goal. Pt able to stand for 6 min before need to sit. 02/12/24: only able to stand 4 min today, stressed importance of inc standing, walking and HEP STG Duration 03/14/23 Crop Farm Helper Goal (LTG) Pt able to stand for 20 min before need to sit secondary to pain. 01/13/23:Pt able to stand for 6 min without UE support before need to sit secondary to weakness. 02/12/24: limited to 4 min today LTG Duration 04/14/23 Pain Impairment Pt reports pain at 10/10 at worst. Short Term Goal (STG) Pt with reported pain at 7/10 at worst. 12/18/22: Pt reports pain at 6 -7/10 at the worst. Goal met STG Duration goal met Crop Farm Helper Goal (LTG) Pt with reported pain at 4/10 at worst. 01/13/23: Pt with pain at 3-4/ 10 at today's tx. Pt reports that there was 1 day that he did not take pain meds before bed and woke up with pain at 6 -7/10. 02/11/23: reports pain variable, varies 3-7/10 LTG Duration 02/12/23 Strength Impairment Pt with LE strength grossly at 3+/5. Short Term Goal (STG) Pt with LE strength grossly at 4-/5. 12/18/22: Progressing towards goal. Pt with 3+to 4-/5. 01/13/23: Pt with 3+ to 4-/5 LE strength grossly. Pt with endurance deficits. 02/11/23: strength 4-/5 ankles and knees, 3+/5 in hips STG Duration 03/14/23 Crop Farm Helper Goal (LTG) Pt with LE grossly at 4/5. LTG Duration 04/14/23 JOSIAH Impairment Pt with Oswestry score of 68 Short Term Goal (STG) Pt with JOSIAH score of 55 12/18/22: GOAL MET-Pt with score of 54 on Oswestry. 01/13/23: Progressing towards LTG with score of 48%. STG Duration 12/18/22-achieved Crop Farm Helper Goal (LTG) Pt with JOSIAH Score of 45 LTG Duration 02/12/23 LEFS Impairment Pt with LEFS score of 10/80. Short Term Goal (STG) Pt with LEFS score of 30/80 12/18/22: Pt with score of 17/ 80. Improved, though continues to progress towards goal. 02/11/23: LEFS 21/80, goal progress STG Duration 03/14/23 Prison Goal (LTG) Pt with LEFS score of 45/80. LTG Duration 04/14/23 Assessment Summary Assessment Reviewed pt HEP for carryover at home, pt correctly demonstrated and verbalized understanding of exercises. Encouraged compliance with HEP and increased movement at home throughout the day. Further progressed gait tolerance this session, with increased distance prior to requiring seated rest break. Physical Therapy Plan Frequency and Duration Frequency of Treatment 2x/Week Duration of treatment (weeks) 12 Plan of Care Start Date 02/11/23 Plan of Care End Date 04/14/23 Therapeutic Interventions Therapeutic Interventions Balance Training,Coordination Training,Gait Training,Home Exercise Program,Joint Mobilizations,Manual Therapy, Neuromuscular Re-education, Patient/Caregiver Education, Self-Care/Home Management,Soft Tissue Mobilization, Therapeutic Activities, Therapeutic Exercises Modalities Cold Pack/Ice Massage,Electric Stimulation,Hot Packs, Ultrasound Next Visit Focus/Plan Next Note Type Treatment Note Next Visit Plan Patient coming for 1 further PT session then requests discharge due to concerns of safety in winter weather. Plans to return in a few months.
--- NOTE | 2023-02-20 16:07 | PT.OPDS ---
Current Diagnoses Other symptoms and signs involving the musculoskeletal system (02/20/23) Arthrodesis status (02/20/23) Visit Care Team Role Provider Type Ronald Felipe MD Attending Provider Physician Family Provider Primary Care Provider Referring Provider Specialty: Internal Medicine Pediatrics Address: [address] [place] [address], [id number] Email: [email or web address] Visit Number Visit Number 22 Discharge Summary PT-OP-B Current Condition Start: 11/20/22 13:51 Freq: Status: Active Protocol: Document 11/28/22 12:15 AM (Rec: 11/28/22 13:39 AM [id number]) Current Condition History of Current Condition Onset Date Chronic LBP, fusion in Nov Current Complaints low back pain, weakness. History of Current Condition Pt had lumbar fusion L4-5-S1 on January 30, 2022. Pt reports that he continues to have a lot of pain. Pt reports that he feels that he healed up [facility]. Pt has appt with surgeon tomorrow. Pt reports symptoms are intermittent. Pt is primarily at home walking with walking sticks. Pt only leaves house for doctors appointments. Pt reports that he has had falls recently. Pt reports that he cannot build strength. Pt reports low back, tailbone and hip pain. Pt uses FWW when ambulating outside of house. Pt reports that he always feels better if he sits down. Pt reports 3 falls in the last month. Pt reports that he has been riding recumbent bike for 30 min with goal to do this 6x/day. Prior Treatments and Tests Pt had MRI. PT-OP-C Subjective Start: 11/20/22 13:51 Freq: Status: Active Protocol: Document 02/20/23 12:57 SW (Rec: 02/20/23 13:58 SW [id number]) OP-PT Subjective Patient Comments Patient Comments Pt reports stiff today, but feels less stiff after moving around. Pt reports increased movement at home the last couple days and surprised that he was not as tired as he thought he would be. Pt requests discharge d/t concerns with winter weather. PT-OP-D Balance Start: 11/20/22 13:51 Freq: Status: Active Protocol: Document 11/20/22 13:52 AM (Rec: 11/20/22 16:37 AM [id number]) Balance Tests Single Limb Standing Single Limb- Right unable to lift LE Single Limb- Left unable to lift LE PT-OP-E Functional Tests Start: 11/20/22 13:51 Freq: Status: Active Protocol: Document 11/20/22 13:52 AM (Rec: 11/20/22 16:37 AM [id number]) Functional Tests 30 Second Sit to Stand Test Score 0 Comments Unable to do without use of UE PT-OP-G Mobility & Gait Start: 11/20/22 13:51 Freq: Status: Active Protocol: Document 11/20/22 13:52 AM (Rec: 11/20/22 16:37 AM [id number]) OP Mobility Evaluation Bed Mobility Supine to and from Sit Min-Mod A with transfer from sit-supine OP Gait Assessment Gait Gait Assistance Required: Independent,Standby Assistance Assistive Devices Assistive Device None,Front Wheeled Walker Gait Deviations General Gait Pattern Antalgic,Flexed Trunk Factors Limiting Gait Function Factors Limiting Gait Function Decreased Activity Tolerance, Decreased Strength,Pain,Poor Balance PT-OP-J Posture/Palpation/Skin Start: 11/20/22 13:51 Freq: Status: Active Protocol: Document 11/20/22 13:52 AM (Rec: 11/20/22 16:37 AM [id number]) Posture Evaluation Position Standing L-Spine Posture Flattened Palpation Assessment Location Low back Palpation Location lumbar paraspinals Palpation Findings Tenderness PT-OP-M Strength Start: 11/20/22 13:51 Freq: Status: Active Protocol: Document 01/13/23 15:20 AM (Rec: 01/13/23 16:27 AM [id number]) Hip Strength Hip Manual Muscle Testing Right Flexion (L2) 3+ Fair+ Extension (S1) 4- Good- Abduction 3+ Fair+ Adduction 4- Good- External Rotation 3+ Fair+ Internal Rotation 3+ Fair+ Left Flexion (L2) 3+ Fair+ Extension (S1) 4- Good- Abduction 3+ Fair+ Adduction 4- Good- External Rotation 3+ Fair+ Internal Rotation 3+ Fair+ Knee Strength Knee Manual Muscle Testing Right Flexion (S2) 4- Good- Extension (L3) 4- Good- Left Flexion (S2) 4- Good- Extension (L3) 4- Good- PT-OP-T Assessment and Plan Start: 11/20/22 13:51 Freq: Status: Active Protocol: Document 02/20/23 12:57 SW (Rec: 02/20/23 13:58 SW [id number]) Physical Therapy Assessment Goals HEP Impairment Pt not currently participating in strengthening program. Pt is riding recumbent bike. Medical Illustrator Goal (LTG) Pt independent with HEP 02/11/23: goal progress, though patient states I tend to forget, spends majority of day sitting. LTG Duration 02/12/23 Standing Impairment Pt able to stand for 5 min before need to sit secondary to pain. Short Term Goal (STG) Pt able to stand for 10 min before need to sit secondary to pain. 12/18/22: Pt progressing towards goal. Pt able to stand for 6 min before need to sit. 02/12/24: only able to stand 4 min today, stressed importance of inc standing, walking and HEP STG Duration 03/14/23 Long-Term Goal (LTG) Pt able to stand for 20 min before need to sit secondary to pain. 01/13/23:Pt able to stand for 6 min without UE support before need to sit secondary to weakness. 02/12/24: limited to 4 min today LTG Duration 04/14/23 Pain Impairment Pt reports pain at 10/10 at worst. Short Term Goal (STG) Pt with reported pain at 7/10 at worst. 12/18/22: Pt reports pain at 6 -7/10 at the worst. Goal met STG Duration goal met Medical Illustrator Goal (LTG) Pt with reported pain at 4/10 at worst. 01/13/23: Pt with pain at 3-4/ 10 at today's tx. Pt reports that there was 1 day that he did not take pain meds before bed and woke up with pain at 6 -7/10. 02/11/23: reports pain variable, varies 3-7/10 LTG Duration 02/12/23 Strength Impairment Pt with LE strength grossly at 3+/5. Short Term Goal (STG) Pt with LE strength grossly at 4-/5. 12/18/22: Progressing towards goal. Pt with 3+to 4-/5. 01/13/23: Pt with 3+ to 4-/5 LE strength grossly. Pt with endurance deficits. 02/11/23: strength 4-/5 ankles and knees, 3+/5 in hips STG Duration 03/14/23 Long-Term Goal (LTG) Pt with LE grossly at 4/5. LTG Duration 04/14/23 JOSIAH Impairment Pt with Oswestry score of 68 Short Term Goal (STG) Pt with JOSIAH score of 55 12/18/22: GOAL MET-Pt with score of 54 on Oswestry. 01/13/23: Progressing towards LTG with score of 48%. STG Duration 12/18/22-achieved Long-Term Goal (LTG) Pt with JOSIAH Score of 45 LTG Duration 02/12/23 LEFS Impairment Pt with LEFS score of 10/80. Short Term Goal (STG) Pt with LEFS score of 30/80 12/18/22: Pt with score of 17/ 80. Improved, though continues to progress towards goal. 02/11/23: LEFS 21/80, goal progress STG Duration 03/14/23 Long-Term Goal (LTG) Pt with LEFS score of 45/80. LTG Duration 04/14/23 Assessment Summary Assessment Reviewed pt HEP for carryover at home, pt correctly demonstrated and verbalized understanding of exercises. Encouraged compliance with HEP and increased movement at home throughout the day. Further progressed gait tolerance this session, with increased distance prior to requiring seated rest break. Physical Therapy Plan Frequency and Duration Frequency of Treatment 2x/Week Duration of treatment (weeks) 12 Plan of Care Start Date 02/11/23 Plan of Care End Date 04/14/23 Therapeutic Interventions Therapeutic Interventions Balance Training,Coordination Training,Gait Training,Home Exercise Program,Joint Mobilizations,Manual Therapy, Neuromuscular Re-education, Patient/Caregiver Education, Self-Care/Home Management,Soft Tissue Mobilization, Therapeutic Activities, Therapeutic Exercises Modalities Cold Pack/Ice Massage,Electric Stimulation,Hot Packs, Ultrasound Next Visit Focus/Plan Next Note Type Treatment Note Next Visit Plan Patient coming for 1 further PT session then requests discharge due to concerns of safety in winter weather. Plans to return in a few months.
== END 2023-03-17 14:49 | disposition home or self-care (01) ==
LOC: PHYS 13:00
PROVIDERS: Family Provider Pediatrics; PCP Pediatrics; Referring Provider Pediatrics; Visit Provider Pediatrics
DX: Z98.1 Arthrodesis status (principal); R29.898 Other symptoms and signs involving the musculoskeletal system
CPT/HCPCS: 97010; 97110; 97112; 97116; 97140; 97162; 97535

== ENCOUNTER → 2023-07-16 07:13 | Outpatient (CLI) | payer MEDICARE, MEDICAID, SELFPAY ==
[2022-02-04 04:36] VITALS: BMI 26.9
[2023-07-16 08:23] LABS: Alanine Aminotransferase 19 IU/L (<50); Albumin 4.6 g/dL (3.5-5.0); Albumin Globulin Ratio 1.8 (1.0-2.8); Alkaline Phosphatase 56 U/L (38-126); Aspartate Aminotransferase 22 IU/L (17-59); BUN Creatinine Ratio 23.1 (6-22); Bilirubin Total 0.6 mg/dL (0.2-1.3); Blood Urea Nitrogen 18 mg/dL (9-20); Calcium 9.5 mg/dL (8.4-10.2); Carbon Dioxide 27 mmol/L (22-32); Chloride 103 mmol/L (98-107); Cholesterol 193 mg/dL (140-199); Estimated Glomerular Filt Rate > 60 mL/min (>60); Globulin 2.5 g/dL (1.7-4.1); Glucose 115 mg/dL (80-110); HDL Cholesterol 41 mg/dL (40-60); HEMOLYSIS < 15 (0-50); LDL Cholesterol Calculated 91 mg/dL (<100); Potassium 4.1 mmol/L (3.4-5.1); Sodium 138 mmol/L (137-145); Total Protein 7.1 g/dL (6.3-8.2); Triglycerides 306 mg/dL (35-150)
== END ==
PROVIDERS: Family Provider Pediatrics; PCP Family Medicine; Referring Provider Family Medicine; Visit Provider Family Medicine
DX: I10 Essential (primary) hypertension (principal); E78.00 Pure hypercholesterolemia, unspecified; E29.1 Testicular hypofunction; I42.9 Cardiomyopathy, unspecified
CPT/HCPCS: 36415; 80053; 80061

== ENCOUNTER → 2023-08-07 08:35 | Outpatient (CLI) | payer MEDICARE, MEDICAID, SELFPAY ==
[2022-02-04 04:36] VITALS: BMI 26.9
[2023-08-07 09:59] LABS: Add Manual Diff / Slide Review NO; Basophils Absolute Auto 0 /uL (0-100); Basophils Percent Auto 0.3 % (0-2); Eosinophils Absolute Auto 100 /uL (0-450); Eosinophils Percent Auto 1.8 % (2-4); Hematocrit 46.7 % (41-53); Hemoglobin 15.3 g/dL (13.5-17.5); Lymphocytes Absolute Auto 2600 /uL (1100-4500); Mean Corpuscular HGB Conc 32.7 % (30-36); Mean Corpuscular Hemoglobin 29.3 PG (26-34); Mean Corpuscular Volume 89.4 fL (80-100); Monocytes Absolute Auto 600 /uL (0-900); Monocytes Percent Auto 7.5 % (3-14); Neutrophils Absolute Auto 4500 /uL (1500-7000); Neutrophils Percent Auto 57.4 % (50-75); Platelet Count 275 X10^3/uL (150-400); Red Blood Cell Count 5.22 X10^6/uL (4.5-5.9); Red Cell Distribution Width 12.6 % (11.6-14.8); White Blood Cell Count 7.8 X10^3/uL (4.5-11.0)
[2023-08-07 10:05] LABS: Hemoglobin A1C% w Est Avg Glu 5.5 % (4.0-6.0)
[2023-08-13 07:17] LABS: Percent Free Testosterone 2.93 % (1.50-4.20); Testosterone Free 4.51 ng/dL (5.00-21.00); Testosterone Total 153.8 ng/dL (264.0-916.0)
== END ==
PROVIDERS: Family Provider Pediatrics; PCP Family Medicine; Referring Provider Family Medicine; Visit Provider Family Medicine
DX: R73.09 Other abnormal glucose (principal); E29.1 Testicular hypofunction; R26.81 Unsteadiness on feet; F11.20 Opioid dependence, uncomplicated
CPT/HCPCS: 36415; 83036; 84402; 84403; 85025

== ENCOUNTER → 2023-08-21 09:02 | Outpatient (CLI) | payer MEDICARE, MEDICAID, SELFPAY ==
[2022-02-04 04:36] VITALS: BMI 26.9
[2023-08-26 08:10] LABS: Percent Free Testosterone 2.84 % (1.50-4.20); Testosterone Free 5.18 ng/dL (5.00-21.00); Testosterone Total 182.4 ng/dL (264.0-916.0)
== END ==
PROVIDERS: Family Provider Pediatrics; PCP Family Medicine; Referring Provider Family Medicine; Visit Provider Family Medicine
DX: R79.89 Other specified abnormal findings of blood chemistry (principal); B35.1 Tinea unguium; E29.1 Testicular hypofunction
CPT/HCPCS: 36415; 84402; 84403

== ENCOUNTER 2023-12-11 21:46 | Inpatient (IN) | payer MEDICARE, MEDICAID, SELFPAY ==
[2022-02-04 04:36] VITALS: BMI 26.9
[2023-12-11] VITALS (8 sets, daily range): BP systolic 124–157; BP diastolic 77–89; PULSE 119–144; RESP 16–30; TEMP 36.3; O2SAT 91–94; BMI 29.9
--- NOTE | 2023-12-11 22:10 | ED.BACK ---
HPI - Back Pain/Injury General Chief Complaint: Back Pain/Injury Stated Complaint: lost use of legs, back pain, right obleak muscle Time Seen by Provider: 12/11/23 21:56 Source: patient History of Present Illness HPI Narrative: 68-year-old male with history of chronic lower back pain s/p L4-S1 fusion, low testosterone, chronic fatigue presents by private vehicle from home for inability to stand. Patient states that he chronically has issues with ambulation and normally uses a cane at baseline, however today since mid afternoon he has been unable to fully stand upright. He reports chronic right-sided abdominal pain that he believes is a bad oblique muscle, but tonight the pain was worse. He denies bowel or bladder incontinence, denies saddle anesthesia. Related Data Previous Rx's Medication Instructions Recorded Syringes #1 ea 07/06/18 MAX NEEDLES #50 ea 09/26/21 acetaminophen 325 mg tablet 650 mg (2 x 325 mg) PO Q6HR #60 02/02/22 tabs gabapentin 600 mg tablet 600 mg PO TID #270 tabs 10/18/22 (Neurontin) lisinopril 20 1 tab PO DAILY #90 tabs 02/03/23 mg-hydrochlorothiazide 25 mg tablet tramadol 50 mg tablet 50 mg PO DAILY PRN pain #30 tabs 06/30/23 trazodone 100 mg tablet 200 mg (2 x 100 mg) PO BEDTIME 08/12/23 #180 tabs duloxetine 60 mg capsule,delayed 60 mg PO DAILY #90 caps 08/28/23 release testosterone cypionate 200 mg/mL 200 mg IM Q4W #1 mL 08/28/23 intramuscular oil (Depo-Testosterone) metoprolol succinate 25 mg 25 mg PO DAILY #90 tabs 10/10/23 tablet,extended release 24 hr citalopram 20 mg tablet 20 mg PO DAILY #90 tabs 11/26/23 Allergies Allergy/AdvReac Type Severity Reaction Status Date / Time No Known Drug Allergies Allergy Verified 12/11/23 21:59 Patient History Medical History Influenza A Anesthesia Gait instability 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 Bleeding from ear 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) Congestive heart failure Coronary artery aneurysm Pure hypercholesterolemia (07/30/16) Hypogonadism in male (04/23/16) Essential hypertension (04/23/16) Surgical History H/O surgical amputation of finger H/O vasectomy Hx of tonsillectomy Family History Father Heart attack Mother Dementia Sister Cancer Social History household members: spouse and family Smoking Status: Never smoker alcohol intake: former substance use type: does not use Smoking Status: Never smoker Substance Use Type: does not use Exam Initial Vital Signs Initial Vital Signs: Vital Signs Temperature 97.4 F L 12/11/23 21:54 Pulse Rate 144 H 12/11/23 21:54 Respiratory Rate 16 12/11/23 21:54 Blood Pressure 131/77 12/11/23 21:54 Pulse Oximetry 93 12/11/23 21:54 Oxygen Delivery Method Room Air 12/11/23 21:54 Const: Awake, alert, appears chronically unwell, frail Cardiac: Tachycardia, regular rhythm RESP: unlabored, clear bilaterally, no wheezing GI: Soft, mid right abdominal pain without rebound or guarding Skin: Warm, Dry, intact, no rashes Neuro: AO x3, CN II-XII grossly intact, moves all extremities Course Orders Ordered: ED Orders 12/11/23 22:15 CMP [Comprehensive Metabolic Panel] Stat CRP [C-Reactive Protein Quant] Stat TSH [Thyroid Stimulating Hormone] Stat Troponin & CK Cardiac Panel Stat 12/11/23 22:22 CT abdomen pelvis w con Stat 12/11/23 22:38 Chest [XR chest 1V] Stat 12/11/23 22:41 Blood Culture Stat 12/11/23 23:14 CBC Auto Diff [Complete Blood Count AUTO DIFF] Stat Erythrocyte Sedimentation Rate Stat 12/11/23 23:15 Urine Culture Stat Urine Microscopic Stat 12/12/23 00:15 Consult to General Surgery Stat Acetaminophen (Acetaminophen 325 Mg Tablet) 650 mg PO Q6H PRN PRN Reason: Fever/Mild Pain (1-3) Hydrocodone Bitart/Acetaminophen (Hydrocodone/Acet 5/325 Tablet) 1 tab PO Q4H PRN PRN Reason: Pain, Moderate (4-6) Hydromorphone HCl (Hydromorphone 0.5 Mg Inj) 0.5 mg IV Q2H PRN PRN Reason: Pain, Severe (7-10) Sodium Chloride (Normal Saline 0.9%) 1,000 mls @ 100 mls/hr IV CONT KAZ Piperacillin Sod/Tazobactam (Sod 3.375 gm/ Sodium Chloride) 100 mls @ 200 mls/hr IV Q8H KAZ Naloxone HCl (Naloxone 0.4 Mg/Ml Vial) 0.2 mg IV Q2MIN PRN PRN Reason: Opiate Reversal Ondansetron HCl (Ondansetron 4 Mg/2 Ml Inj) 4 mg IV Q8HR PRN PRN Reason: Nausea And Vomiting Oxycodone HCl (Oxycodone Ir 10 Mg Tablet) 10 mg PO Q3H PRN PRN Reason: Pain, Severe (7-10) Discontinued Medications Piperacillin Sod/Tazobactam (Sod 4.5 gm/ Sodium Chloride) 100 mls @ 200 mls/hr IV NOW ONE Stop: 12/12/23 00:01 Last Infusion: 12/12/23 00:58 Dose: Infused Documented By: Admin: 12/12/23 00:15 Dose: 200 mls/hr Documented By: Metoprolol Tartrate (Metoprolol Tartrate 5 Mg/5 Ml Inj) 5 mg IV Q5M [facility] Stop: 12/11/23 22:56 Last Admin: 12/12/23 00:08 Dose: Not Given Documented By: Admin: 12/12/23 00:08 Dose: Not Given Documented By: Admin: 12/11/23 23:32 Dose: 5 mg Documented By: Vital Signs Vital signs: Vital Signs - 8 hr 12/11/23 21:54 12/11/23 22:08 12/11/23 22:10 Temperature 97.4 F L Pulse Rate 144 H 140 H Respiratory Rate 16 23 Blood Pressure 131/77 157/89 H Pulse Oximetry 93 93 Oxygen Delivery Method Room Air 12/11/23 22:10 12/11/23 22:30 12/11/23 22:30 Temperature Pulse Rate 138 H 128 H Respiratory Rate 28 H 27 H Blood Pressure 133/80 Pulse Oximetry 91 94 Oxygen Delivery Method Room Air 12/11/23 23:10 12/11/23 23:11 12/11/23 23:11 Temperature Pulse Rate 120 H 120 H Respiratory Rate 30 H 26 H Blood Pressure 131/84 Pulse Oximetry 94 94 Oxygen Delivery Method 12/11/23 23:15 12/11/23 23:15 12/11/23 23:30 Temperature Pulse Rate 121 H Respiratory Rate 26 H Blood Pressure 124/83 125/79 Pulse Oximetry 93 Oxygen Delivery Method 12/11/23 23:30 12/12/23 00:00 12/12/23 00:00 Temperature Pulse Rate 119 H 111 H Respiratory Rate 25 H 25 H Blood Pressure 137/90 Pulse Oximetry 93 92 Oxygen Delivery Method Room Air MDM - Back Pain/Injury Differential Diagnosis Differential diagnosis: Likely sciatica, renal colic and pyelonephritis Lab Data 12/11/23 23:14 12/11/23 22:15 Labs: Lab Results 12/11/23 12/11/23 12/11/23 Range/Units 22:15 23:14 23:15 WBC 20.2 H (4.5-11.0) X10^3/uL RBC 5.70 (4.5-5.9) X10^6/uL Hgb 16.6 (13.5-17.5) g/dL Hct 50.7 (41-53) % MCV 88.9 (80-100) fL MCH 29.2 (26-34) PG MCHC 32.8 (30-36) % RDW 13.3 (11.6-14.8) % Plt Count 218 (150-400) X10^3/uL Neut % (Auto) Not Reportable Lymph % (Auto) Not Reportable [place] % (Auto) Not Reportable Eos % (Auto) Not Reportable Baso % (Auto) Not Reportable Lymph # (Auto) Not Reportable [place] # (Auto) Not Reportable Baso # (Auto) Not Reportable Total Counted 100 Seg Neutrophils % 93.0 H (38-70) % Lymphocytes % (Manual) 2.0 L (25-45) % Monocytes % (Manual) 5.0 (2-11) % Neutrophils # (Manual) 24528 H (6998-9200) /uL Smudge Cells 1+ H RBC Morphology Normal morphology ESR 1 (0-15) MM/HR Sodium 132 L (137-145) mmol/L Potassium 3.7 (3.4-5.1) mmol/L Chloride 97 L (98-107) mmol/L Carbon Dioxide 22 (22-32) mmol/L BUN 18 (9-20) mg/dL Creatinine 0.78 (0.66-1.25) mg/dL Estimated GFR > 60 (>60) mL/min BUN/Creatinine Ratio 23.1 H (6-22) Glucose 158 H (80-110) mg/dL Calcium 9.5 (8.4-10.2) mg/dL Total Bilirubin 1.2 (0.2-1.3) mg/dL AST 28 (17-59) IU/L ALT 24 (<50) IU/L Alkaline Phosphatase 60 (38-126) U/L Total Creatine Kinase 124 (55-170) U/L Troponin I < 0.012 (0.01-0.034) ng/mL C-Reactive Protein 8.4 H (<1.0) mg/dL Total Protein 7.9 (6.3-8.2) g/dL Albumin 4.5 (3.5-5.0) g/dL Globulin 3.4 (1.7-4.1) g/dL Albumin/Globulin Ratio 1.3 (1.0-2.8) TSH 1.96 (0.47-4.68) uIU/mL Urine RBC 10-30/hpf H (0-5/HPF) Urine WBC 0-1/hpf (0-5/HPF) Ur Squamous Epith Cells 0-1 /hpf (0-5/HPF) Urine Bacteria Few (2-10) H (None) Urine Mucus 2+ H (Negative) Vol Urine Centrifuged 10ml (spun) Urine Dip Bedside Urine Glucose Negative Bedside Urine Bilirubin - Negative Bedside Urine Ketone +/- 5 Urine Specific [place] 1.020 Bedside Urine Occult Blood ++ Bedside Urine pH 6.0 Bedside Urine Protein +/- 15 Bedside Urine Urobilinogen 1+ 2mg Bedside Urine Nitrite - Negative Bedside Urine Leukocytes - Negative Esterase Imaging Data CT scan - abdomen/pelvis: Radiologist's Impression: PROCEDURE: CT ABDOMEN PELVIS W CON INDICATIONS: BACK PAIN, R SIDED ABD PAIN, REPORTING DEC USE OF LEGS TECHNIQUE: After the administration of intravenous contrast, axial sections acquired from the lung bases to the pubic symphysis. Coronal and sagittal reformats were performed. For radiation dose reduction, the following was used: automated exposure control, adjustment of mA and/or kV according to patient size. COMPARISON: None. FINDINGS: Image quality: Diagnostic. Lower Chest: Right basilar atelectasis versus scarring. ABDOMEN: Liver: No solid mass. Gallbladder: Cholelithiasis without CT evidence of acute cholecystitis. Biliary ducts: No biliary dilation. Pancreas: No ductal dilation. Spleen: Size is within normal limits. Adrenal Glands: No adrenal nodules. Kidneys and Ureters: No hydronephrosis. No solid mass. No complex renal cystic lesion which requires follow up. Stomach and Bowel: Normal colonic caliber, without significant wall thickening. Moderate stool burden. The appendix is dilated and fluid-filled measuring up to 1.1 cm with wall thickening. There is surrounding stranding and fluid. No organized fluid collections. Peritoneum: No abnormal intraperitoneal fluid. No free air. Ventral Wall: No significant ventral hernia. Abdominal Nodes: No retroperitoneal or mesenteric adenopathy by size criteria. Vessels: Aorta and inferior vena cava are normal in size. Atherosclerotic vascular calcifications PELVIS: Pelvic Organs: Unremarkable. Bladder: No bladder wall thickening, accounting for underdistention. Pelvic Nodes: No enlarged lymph nodes. Miscellaneous: No inguinal hernias are seen. Bones: No aggressive osseous abnormality. Degenerative changes of the spine. L4 through S1 posterior spinal fixation. IMPRESSION: 1. Findings consistent with acute appendicitis. There is surrounding fat stranding and fluid. No organized fluid collections or extraluminal gas. 2. Cholelithiasis without evidence of acute cholecystitis. Dictated by: Poncho Guardado M.D. on 12/11/2023 at 23:42 Approved by: Poncho Guardado M.D. on 12/11/2023 at 23:46 MDM Narrative Medical decision making narrative: Patient presenting for inability to stand and right-sided abdominal pain for 1 day. Triage presentation complaint states lost use of legs, however on exam patient has intact strength and sensation of his bilateral lower extremities, intact perineal sensation. His complaint is that he is unable to stand upright, which he believes is due to his oblique muscle on the right-hand side. Abdomen soft, but patient does have tenderness to palpation on the right lateral portion of his abdomen. Laboratory work and CT imaging to be obtained. Incidental note made of tachycardia with heart rate 130s. Appears to be sinus tachycardia. Patient states that he does take metoprolol for an unspecified heart condition, but he does not know the dose and does not know his resting heart rate. 5 mg of IV metoprolol ordered for rate control. Laboratory work reviewed, WBC count 20.2, hemoglobin 16.6, platelet count 218, sodium 132, potassium 3.7, chloride 97, creatinine 0.78, normal liver enzymes. ESR 1, CRP 0.4. CT of the abdomen and pelvis with IV contrast shows findings of acute uncomplicated appendicitis. Dr. Polanco of General surgery contacted, who will see the patient in the morning. Rosalina ordered for antibiotic coverage. Patient informed of lab and imaging findings and it is in agreement with admission at this time. Discharge Plan Departure Patient Disposition: Admitted as Observation Clinical Impression: Acute appendicitis, Chronic back pain, Tachycardia Admit Date/Time: 12/12/23 00:49 Admit Provider: Chiki Ohara
--- NOTE | 2023-12-11 22:16 | EKG_ITS ---
[address] [address] [address] [address] Test Date: 2023-12-11 Pat Name: Jamal Orr Department: Room: 225 Gender: Male .Net Developer: brianne : 1955 Requested By: Order Number: [id number] Reading MD: Mauro Woods MD Measurements Intervals [place] Rate: 135 P: [place]: QRS: -44 QRSD: 96 T: 36 QT: 394 QTc: 591 Interpretive Statements Critical Test Result: Long QTc Supraventricular tachycardia Left axis deviation Inferior infarct , age undetermined Possible Anterolateral infarct , age undetermined Electronically Signed On 12-12-2023 7:32:25 PDT by Mauro Woods MD
--- NOTE | 2023-12-11 22:22 | DI.CT.S_ITS ---
PROCEDURE: CT ABDOMEN PELVIS W CON INDICATIONS: BACK PAIN, R SIDED ABD PAIN, REPORTING DEC USE OF LEGS TECHNIQUE: After the administration of intravenous contrast, axial sections acquired from the lung bases to the pubic symphysis. Coronal and sagittal reformats were performed. For radiation dose reduction, the following was used: automated exposure control, adjustment of mA and/or kV according to patient size. COMPARISON: None. FINDINGS: Image quality: Diagnostic. Lower Chest: Right basilar atelectasis versus scarring. ABDOMEN: Liver: No solid mass. Gallbladder: Cholelithiasis without CT evidence of acute cholecystitis. Biliary ducts: No biliary dilation. Pancreas: No ductal dilation. Spleen: Size is within normal limits. Adrenal Glands: No adrenal nodules. Kidneys and Ureters: No hydronephrosis. No solid mass. No complex renal cystic lesion which requires follow up. Stomach and Bowel: Normal colonic caliber, without significant wall thickening. Moderate stool burden. The appendix is dilated and fluid-filled measuring up to 1.1 cm with wall thickening. There is surrounding stranding and fluid. No organized fluid collections. Peritoneum: No abnormal intraperitoneal fluid. No free air. Ventral Wall: No significant ventral hernia. Abdominal Nodes: No retroperitoneal or mesenteric adenopathy by size criteria. Vessels: Aorta and inferior vena cava are normal in size. Atherosclerotic vascular calcifications PELVIS: Pelvic Organs: Unremarkable. Bladder: No bladder wall thickening, accounting for underdistention. Pelvic Nodes: No enlarged lymph nodes. Miscellaneous: No inguinal hernias are seen. Bones: No aggressive osseous abnormality. Degenerative changes of the spine. L4 through S1 posterior spinal fixation. IMPRESSION: 1. Findings consistent with acute appendicitis. There is surrounding fat stranding and fluid. No organized fluid collections or extraluminal gas. 2. Cholelithiasis without evidence of acute cholecystitis. Dictated by: Poncho Guardado M.D. on 12/11/2023 at 23:42 Approved by: Poncho Guardado M.D. on 12/11/2023 at 23:46
--- NOTE | 2023-12-11 22:38 | DI.RAD.S_ITS ---
PROCEDURE: XR CHEST 1V INDICATIONS: low O2 sats, tachycardic TECHNIQUE: One view of the chest was acquired. COMPARISON: [facility], CR, XR CHEST 2V, 02/03/2022, 23:28. [facility], CR, XR CHEST 1V, 02/03/2022, 21:31. FINDINGS: Surgical changes and devices: None. Lungs and pleura: Lungs are clear. Low lung volumes. Elevation of the right hemidiaphragm. Bibasilar atelectasis. No pleural effusions or pneumothorax. Mediastinum: Mediastinal contours appear normal. Heart size is normal. Bones and chest wall: No suspicious bony lesions. Overlying soft tissues appear unremarkable. IMPRESSION: Low lung volumes with bibasilar atelectasis. Otherwise, no definite pulmonary consolidation. Dictated by: Poncho Guardado M.D. on 12/11/2023 at 23:46 Approved by: Poncho Guardado M.D. on 12/11/2023 at 23:47
[2023-12-11 22:49] LABS: Alanine Aminotransferase 24 IU/L (<50); Albumin 4.5 g/dL (3.5-5.0); Albumin Globulin Ratio 1.3 (1.0-2.8); Alkaline Phosphatase 60 U/L (38-126); Aspartate Aminotransferase 28 IU/L (17-59); BUN Creatinine Ratio 23.1 (6-22); Bilirubin Total 1.2 mg/dL (0.2-1.3); Blood Urea Nitrogen 18 mg/dL (9-20); Calcium 9.5 mg/dL (8.4-10.2); Carbon Dioxide 22 mmol/L (22-32); Chloride 97 mmol/L (98-107); Estimated Glomerular Filt Rate > 60 mL/min (>60); Globulin 3.4 g/dL (1.7-4.1); Glucose 158 mg/dL (80-110); Potassium 3.7 mmol/L (3.4-5.1); Sodium 132 mmol/L (137-145); Total Protein 7.9 g/dL (6.3-8.2)
[2023-12-11 23:12] LABS: Creatine Kinase 124 U/L (55-170)
[2023-12-11 23:22] LABS: Hematocrit 50.7 % (41-53); Hemoglobin 16.6 g/dL (13.5-17.5); Mean Corpuscular HGB Conc 32.8 % (30-36); Mean Corpuscular Hemoglobin 29.2 PG (26-34); Mean Corpuscular Volume 88.9 fL (80-100); Platelet Count 218 X10^3/uL (150-400); Red Cell Distribution Width 13.3 % (11.6-14.8); White Blood Cell Count 20.2 X10^3/uL (4.5-11.0)
--- NOTE | 2023-12-11 23:22 | PC.NURSE ---
Assumed cares from NASH Mandel at this time. Pt sitting up in [facility]. Appears in no acute distress. Talking to staff/family.
[2023-12-11 23:25] LABS: Troponin I < 0.012 ng/mL (0.01-0.034)
[2023-12-11 23:25] LABS: Add Manual Diff / Slide Review YES
[2023-12-11] MEDS: METOPROLOL TARTRATE 5 MG/5 ML INJ IV (23:32)
[2023-12-11 23:38] LABS: C-Reactive Protein Quant 8.4 mg/dL (<1.0); HEMOLYSIS 28 (0-50)
[2023-12-11 23:40] LABS: Bacteria Urine Few (2-10); Mucus Urine 2+ (Negative); RBC Urine 10-30/HPF (0-5/HPF); Squamous Epithelial Cell Urine 0-1 /HPF (0-5/HPF); Urine Volume 10mL (spun); WBC Urine 0-1/HPF (0-5/HPF)
[2023-12-11 23:44] LABS: Thyroid Stimulating Hormone 1.96 uIU/mL (0.47-4.68)
[2023-12-11 23:48] LABS: Erythrocyte Sedimentation Rate 1 MM/HR (0-15)
[2023-12-12] VITALS (26 sets, daily range): BP systolic 97–182; BP diastolic 58–137; PULSE 65–131; RESP 12–38; TEMP 35.9–38.2; O2SAT 87–97; BMI 29.9
[2023-12-12] LABS: Neutrophils Absolute Manual 18786 /uL (3000-5900); RBC Morphology Normal Morphology; Smudge Cells 1+; Total Cells Counted 100
--- NOTE | 2023-12-12 | PATH_ITS ---
[facility] Accession Number: [id number] No. of containers..01 Tissue . 01 Material submitted: . ileo-cecal valve - ILEOCECUM, SEGMENTAL RESECTION . 01 Diagnosis: ILEOCECUM, SEGMENTAL RESECTION: 1. Segment of colon and terminal ileum, with extensive active serositis. 2. Vermiform appendix with ruptured acute suppurative appendicitis. 3. Ten reactive lymph nodes. 4. No dysplasia or malignancy identified. [facility] 12/15/2023 1828 Local . 01 Electronically signed: . Sanjay Hanna MD, Pathologist NPI- [id number] . 01 Gross description: . Received in formalin with two identifiers and ileocecectomy, is an ileocecectomy (Ileum: 1.6 cm in length by 2.4 cm in diameter. Cecum: 7.1 cm in length by 4.7 cm in diameter. Appendix: 6.0 cm in length by 1.0 cm in diameter) with violaceous, roughened serosa. The base of the cecum adjacent to the appendix is diffusely ragged and the appendix is violaceous with adherent material consistent with exudate and a full thickness defect with exposed mucosa 1.5 cm in greatest dimension. The ileal margin is inked blue, the cecal margin is inked black, and the area of defect on the appendix is inked orange. . The lumen contains a small amount of brown semi-solid fecal material. The mucosa is diffusely erythematous and edematous with no lesions identified. The appendix is completely detached from the cecum at the area of defect which is inked green on the cecal side. The mercado average 0.4 cm thick with no additional defects identified. . The lumen of the appendix is patent and averages 0.2 cm in diameter. The mercado average 0.5 cm thick with no lesions identified. . Palpation reveals 11 red to dodge lymph node candidates 0.3 to 0.9 cm in greatest dimension. . [employer] sections are submitted as follows: A1: [employer] Recruiter margins en face. A2: Cecum to appendiceal orifice. A3: Appendix to include one-half of bisected distal tip and cross-sections with defect. A4: Ileocecal valve. A5: Normal sections. A6: Single bisected lymph node candidate. A7: Five intact lymph node candidates. A8: Five intact lymph node candidates. ([id number]) /YOANDY 12/15/2023 1828 Local . 01 Pathologist provided ICD-10: K35.80 . 01 CPT . 519928 Specimen Comment: A courtesy copy of this report has been sent to [phone] Performed at: [address] [id number] MD Sanjay Hanna MD Phone: [phone]
[2023-12-12] MEDS: PIPERACILLIN/TAZO 4.5 GM in SODIUM CHLORIDE 0.9% 100 ML IV (00:15)
[2023-12-12] MEDS: OXYCODONE IR 10 MG TABLET PO ×3 (02:45→22:12)
[2023-12-12] MEDS: ACETAMINOPHEN 325 MG TABLET 650 MG PO ×2 (02:46→12:19)
[2023-12-12] MEDS: SODIUM CHLORIDE 0.9% 1,000 ML 100 ML IV (02:48)
--- NOTE | 2023-12-12 02:48 | PM.HP.1 ---
History of Present Illness History of Present Illness Chief complaint: lost use of legs, back pain, right obleak muscle Narrative: 68 year-old male with past medical history of hypertension, depression, low testosterone, chronic lower back pain from status post L4-S1 fusion with chronic lower bilateral extremely weakness and chronic fatigue presents with complaint of right side, abdominal pain and leg weakness. Per the patient report, the patient at baseline ambulates with a cane. However this afternoon, the patient was having a hard time standing upright due to right side, abdominal pain. The patient states that his pain is severe and is thought to be from a muscle tear. Otherwise a patient denies any fever, chills, nausea, vomiting, changes in bowel or bladder habits? as well as denying any saddle anesthesia. In our emergency room, the patient was hemodynamically stable but lab shows WBC of 20,000. CT of the abdomen shows signs of acute appendicitis. General surgery was consult ?and recommended to admit the patient for possible OR in the morning. IV zosyn was given. Patient is not septic. 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) Congestive heart failure Coronary artery aneurysm Pure hypercholesterolemia (07/30/16) Hypogonadism in male (04/23/16) Essential hypertension (04/23/16) Surgical History H/O surgical amputation of finger H/O vasectomy Hx of tonsillectomy Family History Father Heart attack Mother Dementia Sister Cancer Social History household members: spouse and family Smoking Status: Never smoker alcohol intake: former substance use type: does not use Meds Home Medications and Allergies Home Medications Medication Instructions Recorded Confirmed Type Syringes #1 ea 07/06/18 12/12/23 Rx MAX NEEDLES #50 ea 09/26/21 12/12/23 Rx acetaminophen 325 mg tablet 650 mg (2 x 325 mg) PO Q6HR #60 02/02/22 12/12/23 Rx tabs lisinopril 20 1 tab PO DAILY #90 tabs 02/03/23 12/12/23 Rx mg-hydrochlorothiazide 25 mg tablet duloxetine 60 mg capsule,delayed 60 mg PO DAILY #90 caps 08/28/23 12/12/23 Rx release testosterone cypionate 200 mg/mL 200 mg IM Q4W #1 mL 08/28/23 12/12/23 Rx intramuscular oil (Depo-Testosterone) metoprolol succinate 25 mg 25 mg PO DAILY #90 tabs 10/10/23 12/12/23 Rx tablet,extended release 24 hr citalopram 20 mg tablet 20 mg PO DAILY #90 tabs 11/26/23 12/12/23 Rx trazodone 100 mg tablet 100 mg PO BEDTIME 12/12/23 12/12/23 History Allergies Allergy/AdvReac Type Severity Reaction Status Date / Time No Known Drug Allergies Allergy Verified 12/11/23 21:59 Review of Systems Review of Systems ROS: Yes All systems reviewed with the patient and are negative except as otherwise documented Exam Vital Signs (past 8 hours): - 12/11/23 21:54 12/11/23 22:08 12/11/23 22:10 Temperature 97.4 F L Pulse Rate 144 H 140 H Respiratory Rate 16 23 Blood Pressure 131/77 157/89 H Pulse Oximetry 93 93 Oxygen Delivery Method Room Air 12/11/23 22:10 12/11/23 22:30 12/11/23 22:30 Temperature Pulse Rate 138 H 128 H Respiratory Rate 28 H 27 H Blood Pressure 133/80 Pulse Oximetry 91 94 Oxygen Delivery Method Room Air 12/11/23 23:10 12/11/23 23:11 12/11/23 23:11 Temperature Pulse Rate 120 H 120 H Respiratory Rate 30 H 26 H Blood Pressure 131/84 Pulse Oximetry 94 94 Oxygen Delivery Method 12/11/23 23:15 12/11/23 23:15 12/11/23 23:30 Temperature Pulse Rate 121 H Respiratory Rate 26 H Blood Pressure 124/83 125/79 Pulse Oximetry 93 Oxygen Delivery Method 12/11/23 23:30 12/12/23 00:00 12/12/23 00:00 Temperature Pulse Rate 119 H 111 H Respiratory Rate 25 H 25 H Blood Pressure 137/90 Pulse Oximetry 93 92 Oxygen Delivery Method Room Air 12/12/23 00:30 12/12/23 00:31 12/12/23 00:31 Temperature Pulse Rate 126 H 127 H Respiratory Rate 38 H 37 H Blood Pressure 182/137 H Pulse Oximetry 91 Oxygen Delivery Method 12/12/23 00:45 12/12/23 00:45 12/12/23 01:00 Temperature Pulse Rate 122 H Respiratory Rate 31 H Blood Pressure 147/85 H 144/91 H Pulse Oximetry 94 Oxygen Delivery Method 12/12/23 01:00 12/12/23 01:30 12/12/23 01:30 Temperature Pulse Rate 116 H 116 H Respiratory Rate 28 H 27 H Blood Pressure 145/90 H Pulse Oximetry 92 93 Oxygen Delivery Method Room Air 12/12/23 01:42 Temperature Pulse Rate 65 Respiratory Rate 22 Blood Pressure 137/84 Pulse Oximetry 92 Oxygen Delivery Method Room Air Oxygen Delivery Method Room Air Narrative Exam Narrative: GENERAL: The patient is not in any acute distressed. Awake and alert. HEENT: Nonicteric sclerae, PERRLA, EOMI. Oropharynx clear. Moist mucous membranes. Conjunctivae appear well perfused. HEART: Regular rate and rhythm without murmurs. No lower extremities edema. LUNGS: Clear to auscultation bilaterally. No wheezing, crackles or rhonchi ABDOMEN: Soft, positive bowel sounds, tender in RLQ without rebound SKIN: No rash, no excessive bruising, petechiae, or purpura. NEUROLOGIC: AxO x 3. Cranial nerves II-XII intact without motor/sensory deficit. Objective Labs 12/11/23 23:14 12/11/23 22:15 Labs: Laboratory Results - last 24 hr 12/11/23 12/11/23 12/11/23 22:15 23:14 23:15 WBC 20.2 H RBC 5.70 Hgb 16.6 Hct 50.7 MCV 88.9 MCH 29.2 MCHC 32.8 RDW 13.3 Plt Count 218 Neut % (Auto) Not Reportable Lymph % (Auto) Not Reportable [place] % (Auto) Not Reportable Eos % (Auto) Not Reportable Baso % (Auto) Not Reportable Lymph # (Auto) Not Reportable [place] # (Auto) Not Reportable Baso # (Auto) Not Reportable Total Counted 100 Seg Neutrophils % 93.0 H Lymphocytes % (Manual) 2.0 L Monocytes % (Manual) 5.0 Neutrophils # (Manual) 47277 H Smudge Cells 1+ H RBC Morphology Normal morphology ESR 1 Sodium 132 L Potassium 3.7 Chloride 97 L Carbon Dioxide 22 BUN 18 Creatinine 0.78 Estimated GFR > 60 BUN/Creatinine Ratio 23.1 H Glucose 158 H Calcium 9.5 Total Bilirubin 1.2 AST 28 ALT 24 Alkaline Phosphatase 60 Total Creatine Kinase 124 Troponin I < 0.012 C-Reactive Protein 8.4 H Total Protein 7.9 Albumin 4.5 Globulin 3.4 Albumin/Globulin Ratio 1.3 TSH 1.96 Urine RBC 10-30/hpf H Urine WBC 0-1/hpf Ur Squamous Epith Cells 0-1 /hpf Urine Bacteria Few (2-10) H Urine Mucus 2+ H Vol Urine Centrifuged 10ml (spun) Assessment & Plan Assessment & Plan narrative: Acute appendicitis. Admit the patient to? Medical inpatient. NPO. IV fluid. Pain control. Continue IV Zosyn. General surgery consulted and appreciate input and management. Hypertension. Monitor blood pressure and resume home medication accordingly Depression/anxiety.? Resume home medication Chronic lower back pain with chronic lower weakness. PT, OT Leukocytosis. Likely? due to acute appendicitis.? Monitor for now. DVT prophylaxis SCDs due to planned OR in the morning. Code status is full code. Disposition likely home in two days. Time-Based Coding :: [TOTAL MINUTES] spent with patient and on the chart (including review of chart, obtaining history, exam, reviewing outside data, placing orders, documenting exam and treatment plan, and counseling patient) on [DATE].
[2023-12-12 06:40] LABS: Add Manual Diff / Slide Review NO; Basophils Absolute Auto 100 /uL (0-100); Basophils Percent Auto 0.4 % (0-2); Eosinophils Absolute Auto 100 /uL (0-450); Eosinophils Percent Auto 0.4 % (2-4); Hematocrit 51.5 % (41-53); Hemoglobin 16.7 g/dL (13.5-17.5); Lymphocytes Absolute Auto 1400 /uL (1100-4500); Mean Corpuscular HGB Conc 32.4 % (30-36); Mean Corpuscular Hemoglobin 28.9 PG (26-34); Monocytes Absolute Auto 1400 /uL (0-900); Monocytes Percent Auto 7.2 % (3-14); Neutrophils Absolute Auto 16800 /uL (1500-7000); Platelet Count 217 X10^3/uL (150-400); Red Blood Cell Count 5.79 X10^6/uL (4.5-5.9); Red Cell Distribution Width 13.3 % (11.6-14.8); White Blood Cell Count 19.8 X10^3/uL (4.5-11.0)
[2023-12-12] MEDS: HYDROMORPHONE 1 MG INJ 0.5 MG IV ×2 (06:46→11:12)
[2023-12-12 06:55] LABS: Alanine Aminotransferase 20 IU/L (<50); Albumin 3.9 g/dL (3.5-5.0); Albumin Globulin Ratio 1.3 (1.0-2.8); Alkaline Phosphatase 49 U/L (38-126); Aspartate Aminotransferase 28 IU/L (17-59); BUN Creatinine Ratio 20.5 (6-22); Bilirubin Total 1.4 mg/dL (0.2-1.3); Blood Urea Nitrogen 18 mg/dL (9-20); Calcium 8.8 mg/dL (8.4-10.2); Carbon Dioxide 29 mmol/L (22-32); Chloride 96 mmol/L (98-107); Estimated Glomerular Filt Rate > 60 mL/min (>60); Globulin 3.1 g/dL (1.7-4.1); Glucose 127 mg/dL (80-110); HEMOLYSIS 26 (0-50); Potassium 3.8 mmol/L (3.4-5.1); Sodium 131 mmol/L (137-145)
[2023-12-12] MEDS: PIPERACILLIN/TAZO 3.375 GM in SODIUM CHLORIDE 0.9% 100 ML IV ×3 (06:58→20:35)
--- NOTE | 2023-12-12 08:07 | PM.HP.1 ---
History of Present Illness History of Present Illness Date Patient Seen: 12/12/23 Chief complaint: lost use of legs, back pain, right obleak muscle Narrative: From night doctor: 68 year-old male with past medical history of hypertension, depression, low testosterone, chronic lower back pain from status post L4-S1 fusion with chronic lower bilateral extremely weakness and chronic fatigue presents with complaint of right side, abdominal pain and leg weakness. Per the patient report, the patient at baseline ambulates with a cane. However this afternoon, the patient was having a hard time standing upright due to right side, abdominal pain. The patient states that his pain is severe and is thought to be from a muscle tear. Otherwise a patient denies any fever, chills, nausea, vomiting, changes in bowel or bladder habits? as well as denying any saddle anesthesia. In our emergency room, the patient was hemodynamically stable but lab shows WBC of 20,000. CT of the abdomen shows signs of acute appendicitis. General surgery was consult ?and recommended to admit the patient for possible OR in the morning. IV zosyn was given. Patient is not septic. Additional information: He notes right flank pain and anorexia for several days. He has been comfortable overnight. He denies any nausea, or diarrhea. 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) Congestive heart failure Coronary artery aneurysm Pure hypercholesterolemia (07/30/16) Hypogonadism in male (04/23/16) Essential hypertension (04/23/16) Surgical History H/O surgical amputation of finger H/O vasectomy Hx of tonsillectomy Family History Father Heart attack Mother Dementia Sister Cancer Social History household members: spouse and family Smoking Status: Never smoker alcohol intake: former substance use type: does not use Meds Home Medications and Allergies Home Medications Medication Instructions Recorded Confirmed Type Syringes #1 ea 07/06/18 12/12/23 Rx MAX NEEDLES #50 ea 09/26/21 12/12/23 Rx acetaminophen 325 mg tablet 650 mg (2 x 325 mg) PO Q6HR #60 02/02/22 12/12/23 Rx tabs lisinopril 20 1 tab PO DAILY #90 tabs 02/03/23 12/12/23 Rx mg-hydrochlorothiazide 25 mg tablet duloxetine 60 mg capsule,delayed 60 mg PO DAILY #90 caps 08/28/23 12/12/23 Rx release testosterone cypionate 200 mg/mL 200 mg IM Q4W #1 mL 08/28/23 12/12/23 Rx intramuscular oil (Depo-Testosterone) metoprolol succinate 25 mg 25 mg PO DAILY #90 tabs 10/10/23 12/12/23 Rx tablet,extended release 24 hr citalopram 20 mg tablet 20 mg PO DAILY #90 tabs 11/26/23 12/12/23 Rx trazodone 100 mg tablet 100 mg PO BEDTIME 12/12/23 12/12/23 History Allergies Allergy/AdvReac Type Severity Reaction Status Date / Time No Known Drug Allergies Allergy Verified 12/11/23 21:59 Review of Systems Review of Systems Narrative: All else reviewed and otherwise unremarkable except as noted in the history and physical. Exam Vital Signs (past 8 hours): - 12/12/23 00:30 12/12/23 00:31 12/12/23 00:31 Temperature Pulse Rate 126 H 127 H Respiratory Rate 38 H 37 H Blood Pressure 182/137 H Pulse Oximetry 91 Oxygen Delivery Method Oxygen Flow Rate 12/12/23 00:45 12/12/23 00:45 12/12/23 00:50 Temperature 99.1 F Pulse Rate 122 H 117 H Respiratory Rate 31 H 20 Blood Pressure 147/85 H 133/95 H Pulse Oximetry 94 93 Oxygen Delivery Method Oxygen Flow Rate 0 12/12/23 01:00 12/12/23 01:00 12/12/23 01:30 Temperature Pulse Rate 116 H Respiratory Rate 28 H Blood Pressure 144/91 H 145/90 H Pulse Oximetry 92 Oxygen Delivery Method Oxygen Flow Rate 12/12/23 01:30 12/12/23 01:42 12/12/23 06:00 Temperature 98.3 F Pulse Rate 116 H 65 121 H Respiratory Rate 27 H 22 20 Blood Pressure 137/84 125/87 Pulse Oximetry 93 92 94 Oxygen Delivery Method Room Air Room Air Oxygen Flow Rate 0 Oxygen Delivery Method Room Air Oxygen Flow Rate 0 Narrative Exam Narrative: NAD, alert and oriented, fluent speech, calm. Normocephalic skull, EOMI, anicteric sclera, symmetric pupils. Oropharynx unremarkable, no droop. Neck supple, midline trachea, no adenopathy. Lungs clear, normal rate and effort. Heart regular, no murmur gallop or rub. Abdomen is soft, non distended and tender in the lateral right lower quadrant without guarding or rebound. Extremities are free of edema. Skin is free of rash or lesions. Joints are not swollen or deformed. Judgment appears to be normal. Objective Imaging CT scan - abdomen: Radiologist's impression: 1. Findings consistent with acute appendicitis. There is surrounding fat stranding and fluid. No organized fluid collections or extraluminal gas. 2. Cholelithiasis without evidence of acute cholecystitis. Labs 12/12/23 06:29 12/12/23 06:29 Labs: Laboratory Results - last 24 hr 12/11/23 12/11/23 12/11/23 22:15 23:14 23:15 WBC 20.2 H RBC 5.70 Hgb 16.6 Hct 50.7 MCV 88.9 MCH 29.2 MCHC 32.8 RDW 13.3 Plt Count 218 Neut % (Auto) Not Reportable Lymph % (Auto) Not Reportable [place] % (Auto) Not Reportable Eos % (Auto) Not Reportable Baso % (Auto) Not Reportable Neut # (Auto) Lymph # (Auto) Not Reportable [place] # (Auto) Not Reportable Eos # (Auto) Baso # (Auto) Not Reportable Total Counted 100 Seg Neutrophils % 93.0 H Lymphocytes % (Manual) 2.0 L Monocytes % (Manual) 5.0 Neutrophils # (Manual) 62499 H Smudge Cells 1+ H RBC Morphology Normal morphology ESR 1 Sodium 132 L Potassium 3.7 Chloride 97 L Carbon Dioxide 22 BUN 18 Creatinine 0.78 Estimated GFR > 60 BUN/Creatinine Ratio 23.1 H Glucose 158 H Calcium 9.5 Total Bilirubin 1.2 AST 28 ALT 24 Alkaline Phosphatase 60 Total Creatine Kinase 124 Troponin I < 0.012 C-Reactive Protein 8.4 H Total Protein 7.9 Albumin 4.5 Globulin 3.4 Albumin/Globulin Ratio 1.3 TSH 1.96 Urine RBC 10-30/hpf H Urine WBC 0-1/hpf Ur Squamous Epith Cells 0-1 /hpf Urine Bacteria Few (2-10) H Urine Mucus 2+ H Vol Urine Centrifuged 10ml (spun) 12/12/23 06:29 WBC 19.8 H RBC 5.79 Hgb 16.7 Hct 51.5 MCV 89.0 MCH 28.9 MCHC 32.4 RDW 13.3 Plt Count 217 Neut % (Auto) 85.0 H Lymph % (Auto) 7.0 L [place] % (Auto) 7.2 Eos % (Auto) 0.4 L Baso % (Auto) 0.4 Neut # (Auto) 39325 H Lymph # (Auto) 1400 [place] # (Auto) 1400 H Eos # (Auto) 100 Baso # (Auto) 100 Total Counted Seg Neutrophils % Lymphocytes % (Manual) Monocytes % (Manual) Neutrophils # (Manual) Smudge Cells RBC Morphology ESR Sodium 131 L Potassium 3.8 Chloride 96 L Carbon Dioxide 29 BUN 18 Creatinine 0.88 Estimated GFR > 60 BUN/Creatinine Ratio 20.5 Glucose 127 H Calcium 8.8 Total Bilirubin 1.4 H AST 28 ALT 20 Alkaline Phosphatase 49 Total Creatine Kinase Troponin I C-Reactive Protein Total Protein 7.0 Albumin 3.9 Globulin 3.1 Albumin/Globulin Ratio 1.3 TSH Urine RBC Urine WBC Ur Squamous Epith Cells Urine Bacteria Urine Mucus Vol Urine Centrifuged Assessment & Plan Assessment & Plan narrative: 1. Acute appendicitis. Present on admission and active. 2. Hypertension. Stable. 3. Depression/anxiety.? Stable. 4. Chronic lower back pain with chronic lower weakness. Stable. 5. Leukocytosis. Likely? due to acute appendicitis.? Present on admission and active. PLAN: -continue antibiotics and monitor WBC. -anticipate appendectomy per surgery today. DVT prophylaxis SCDs due to planned OR in the morning. Code status is full code. Inpatient status, anticipate 2 midnight hospital stay. ANAIS is December 12 Time-Based Coding :: 35 min spent with patient and on the chart (including review of chart, obtaining history, exam, reviewing outside data, placing orders, documenting exam and treatment plan, and counseling patient) on 12/11. Quality MIPS - Admit I confirm the patient?s Advance Care Plan is present, Code status is documented, Surrogate decision maker is in patient?s record [If Yes, STOP here]: Yes MIPS - Meds 'Current medications' to include all prescriptions, [id number] products, herbals, cannabis/cannabidiol products, and vitamin/mineral/dietary (nutritional) supplements. I have utilized all available resources to obtain, update, or review the patient?s current medications. [If Yes, STOP here]: Yes
[2023-12-12] MEDS: METOPROLOL ER 25 MG TABLET PO ×2 (08:14→11:12)
--- NOTE | 2023-12-12 11:12 | OT.IPNOTE ---
Per hospitalist okay to cancel OT eval orders as pt to have sx today.
--- NOTE | 2023-12-12 11:38 | PC.NURSE ---
Addendum entered by Mireille Almaraz R.N. 12/12/23 17:52: Patient is back from surgery, he had an open illeocecectomy, ml dressing in place with abdominal binder in place. Patient complained of 8/10 pain, just given 10mg of oxycodone for discomfort. Patient is on a full liquid diet now and LR at 100cc/hr. Original Note: Patient is anxious but pleasant. He has chronic back pain from a previous back surgery two years ago. Patient has hx of tachycardia, just given another 25mg of Metoprolol po and iv dilaudid 0.5mg. This has been effective for his discomfort. Patient is hesitant to do things on his own and is encouraged to do more with the help of staff. He is resting supine now. Patients lower bed frame taken off of the bed as he is 6f3in. Patient was just taken to surgery.
--- NOTE | 2023-12-12 12:18 | PT-IP ANOTE ---
PT eval order received. EMR reviewed. pt is scheduled for sx today. will hold PT eval. informed hospitalist and nurse and both agreed.
--- NOTE | 2023-12-12 13:10 | PM.HP.1 ---
History of Present Illness History of Present Illness Date Patient Seen: 12/12/23 Time Patient Seen: 13:10 Chief complaint: lost use of legs, back pain, right obleak muscle Narrative: 68-year-old man admitted to the hospital with acute appendicitis. One week of abdominal discomfort becoming focused to the right lower quadrant over the past 24-48 hours. At admission WBC 20 febrile and tachycardic to 130. CT abdomen pelvis demonstrates acute appendicitis with fat stranding no abscess. No prior abdominal surgery. 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) Congestive heart failure Coronary artery aneurysm Pure hypercholesterolemia (07/30/16) Hypogonadism in male (04/23/16) Essential hypertension (04/23/16) Surgical History H/O surgical amputation of finger H/O vasectomy Hx of tonsillectomy Family History Father Heart attack Mother Dementia Sister Cancer Social History household members: spouse and family Smoking Status: Never smoker alcohol intake: former substance use type: does not use Meds Home Medications and Allergies Home Medications Medication Instructions Recorded Confirmed Type Syringes #1 ea 07/06/18 12/12/23 Rx MAX NEEDLES #50 ea 09/26/21 12/12/23 Rx acetaminophen 325 mg tablet 650 mg (2 x 325 mg) PO Q6HR #60 02/02/22 12/12/23 Rx tabs lisinopril 20 1 tab PO DAILY #90 tabs 02/03/23 12/12/23 Rx mg-hydrochlorothiazide 25 mg tablet duloxetine 60 mg capsule,delayed 60 mg PO DAILY #90 caps 08/28/23 12/12/23 Rx release testosterone cypionate 200 mg/mL 200 mg IM Q4W #1 mL 08/28/23 12/12/23 Rx intramuscular oil (Depo-Testosterone) metoprolol succinate 25 mg 25 mg PO DAILY #90 tabs 10/10/23 12/12/23 Rx tablet,extended release 24 hr citalopram 20 mg tablet 20 mg PO DAILY #90 tabs 11/26/23 12/12/23 Rx trazodone 100 mg tablet 100 mg PO BEDTIME 12/12/23 12/12/23 History Allergies Allergy/AdvReac Type Severity Reaction Status Date / Time No Known Drug Allergies Allergy Verified 12/11/23 21:59 Exam Vital Signs (past 8 hours): - 12/12/23 06:00 12/12/23 08:00 12/12/23 08:09 Temperature 98.3 F 98.1 F Pulse Rate 121 H 87 122 H Respiratory Rate 20 15 Blood Pressure 125/87 109/58 L 128/85 Pulse Oximetry 94 97 Oxygen Delivery Method Oxygen Flow Rate 0 0 12/12/23 12:11 12/12/23 12:19 Temperature 100.1 F H 100.1 F H Pulse Rate 131 H Respiratory Rate 24 Blood Pressure 138/81 Pulse Oximetry 92 Oxygen Delivery Method Room Air Oxygen Flow Rate Oxygen Delivery Method Room Air Oxygen Flow Rate 0 Narrative Exam Narrative: Gen-Adult man alert and oriented Abdomen-Focal pertitonitis RLQ Ext-WWP Objective Labs 12/12/23 06:29 12/12/23 06:29 Labs: Laboratory Results - last 24 hr 12/11/23 12/11/23 12/11/23 22:15 23:14 23:15 WBC 20.2 H RBC 5.70 Hgb 16.6 Hct 50.7 MCV 88.9 MCH 29.2 MCHC 32.8 RDW 13.3 Plt Count 218 Neut % (Auto) Not Reportable Lymph % (Auto) Not Reportable [place] % (Auto) Not Reportable Eos % (Auto) Not Reportable Baso % (Auto) Not Reportable Neut # (Auto) Lymph # (Auto) Not Reportable [place] # (Auto) Not Reportable Eos # (Auto) Baso # (Auto) Not Reportable Total Counted 100 Seg Neutrophils % 93.0 H Lymphocytes % (Manual) 2.0 L Monocytes % (Manual) 5.0 Neutrophils # (Manual) 78783 H Smudge Cells 1+ H RBC Morphology Normal morphology ESR 1 Sodium 132 L Potassium 3.7 Chloride 97 L Carbon Dioxide 22 BUN 18 Creatinine 0.78 Estimated GFR > 60 BUN/Creatinine Ratio 23.1 H Glucose 158 H Calcium 9.5 Total Bilirubin 1.2 AST 28 ALT 24 Alkaline Phosphatase 60 Total Creatine Kinase 124 Troponin I < 0.012 C-Reactive Protein 8.4 H Total Protein 7.9 Albumin 4.5 Globulin 3.4 Albumin/Globulin Ratio 1.3 TSH 1.96 Urine RBC 10-30/hpf H Urine WBC 0-1/hpf Ur Squamous Epith Cells 0-1 /hpf Urine Bacteria Few (2-10) H Urine Mucus 2+ H Vol Urine Centrifuged 10ml (spun) 12/12/23 06:29 WBC 19.8 H RBC 5.79 Hgb 16.7 Hct 51.5 MCV 89.0 MCH 28.9 MCHC 32.4 RDW 13.3 Plt Count 217 Neut % (Auto) 85.0 H Lymph % (Auto) 7.0 L [place] % (Auto) 7.2 Eos % (Auto) 0.4 L Baso % (Auto) 0.4 Neut # (Auto) 44534 H Lymph # (Auto) 1400 [place] # (Auto) 1400 H Eos # (Auto) 100 Baso # (Auto) 100 Total Counted Seg Neutrophils % Lymphocytes % (Manual) Monocytes % (Manual) Neutrophils # (Manual) Smudge Cells RBC Morphology ESR Sodium 131 L Potassium 3.8 Chloride 96 L Carbon Dioxide 29 BUN 18 Creatinine 0.88 Estimated GFR > 60 BUN/Creatinine Ratio 20.5 Glucose 127 H Calcium 8.8 Total Bilirubin 1.4 H AST 28 ALT 20 Alkaline Phosphatase 49 Total Creatine Kinase Troponin I C-Reactive Protein Total Protein 7.0 Albumin 3.9 Globulin 3.1 Albumin/Globulin Ratio 1.3 TSH Urine RBC Urine WBC Ur Squamous Epith Cells Urine Bacteria Urine Mucus Vol Urine Centrifuged Assessment & Plan Assessment and plan (1) Acute appendicitis: Qualifiers: Acute appendicitis type: with localized peritonitis Status: Acute Assessment & Plan narrative: 68-year-old man with acute appendicitis likely perforated. CT abdomen pelvis personally reviewed acute appendicitis without abscess. We discussed management surgery and non operative management risks benefits of each. Following discussion preference is to proceed with laparoscopic appendectomy. Overview of the procedure discussed. Operative risks including hemorrhage, infection, damage to surrounding structures, conversion to open were reviewed. His questions have been answered. He provides his consent to proceed Time-Based Coding :: [TOTAL MINUTES] spent with patient and on the chart (including review of chart, obtaining history, exam, reviewing outside data, placing orders, documenting exam and treatment plan, and counseling patient) on [DATE].
[2023-12-12] MEDS: BUPIVACAINE 0.25% (PF) VIAL 30 ML INJ ×2 (13:41→15:11)
--- NOTE | 2023-12-12 13:49 | SUR.OPER ---
Addendum entered by Laith Randall R.N. 12/12/23 13:51: left arm padded and tucked at side with sled Original Note: Supine on padded OR bed, head on pillow, right arm secured on padded arm board at <90 degrees abduction, left arm tucked with sled, legs uncrossed, safety belt at thigh, blanket over lower legs. Upper body warmer.
--- NOTE | 2023-12-12 13:50 | SUR.OPER ---
Supine on padded OR bed, head on pillow, arms padded and tucked at sides, legs uncrossed, safety belt at thigh, tape over blanket over lower legs .
[2023-12-12] MEDS: LACTATED RINGERS 1,000 ML 125 ML IV (14:13)
--- NOTE | 2023-12-12 14:50 | CM.DANOTE ---
B DCP Assessment note Pt is a 68yo M here with appendicitis. Getting surgery today. PMH of chronic back pain, hypertension, low testosterone. Ambulates with cane at baseline. PCP Kesha Mcdonald Payer Medicare and Medicaid WOOL SPOTTER reviewed EMR. Pt dc'd to [facility] post op TLIF in 2021. Per chart, pt lives in [place] with spouse Fela. Pt in surgery during attempted WOOL SPOTTER assessment. Per hospitalist in morning rounds, likely dc tomorrow. PT/OT pending. WOOL SPOTTER messaged TCM OP team to notify of pt's admission. P: anticipate dc home tomorrow with family support. r/o need for HH post op PT/OT evals. CM team will continue to follow closely ALBINO Forrester Discharge Planning/Care Management CM Discharge Assessment Start: 12/12/23 08:42 Freq: Status: Active Protocol: Document 12/12/23 14:49 SL (Rec: 12/12/23 14:50 SL [id number]) Discharge Planning Assessment Assigned Welder Gun ALBINO Parsons DPOA/Assigned Designee Name nader Chahal Contact Information [phone] Advance Directives? No History Provided By Patient Prior Living Arrangements House Household Members spouse,family Independent with ADL's Yes Is patient alert and oriented? Yes Discharge Plan Home Transportation Arrangement family in POV Referrals Initiated None needed Additional Comment r/o HH closer to DC Whiteboard Updated in Patient Room with No name and ext. # of Welder Gun Review Status In Process Please Provide Date Initial DC 12/12/23 Assessment Was Performed Next Review Type Continued Stay Review
[2023-12-12] MEDS: BUPIVACAINE LIPOSOME 266 MG/20 ML VIAL INJ (15:11)
--- NOTE | 2023-12-12 17:59 | P.OP_ITS ---
Operative Date/Time/Diagnoses Date of procedure: 12/12/23 Time of procedure: 17:59 Pre-op diagnosis: Acute appendicitis Post-op diagnosis: other (Ruptured appendicitis, purulent peritonitis) Procedure & Clinicians Procedure: Diagnostic laparoscopy Open Ileocecectomy Same procedure as scheduled: No Indications: 68-year-old man with 1 week of abdominal pain admitted for acute appendicitis. CT demonstrates stranding around the appendix and fluid no abscess. WBC 20 febrile and tachycardic. Surgeon: Jorge Polanco Medicine Technologist: Tacho Vo Anesthesia Type: General Operative Notes Findings: Appendix necrotic from its midportion to the cecum. There was some area of patchy ischemia involving the cecum. There is stool and purulent material within the abdominal cavity. Specimen(s): other (Ileocecectomy) Estimated Blood Loss (mL): 50 Procedure in detail: Patient was brought to the operating room placed supine on the table. Bilateral lower extremity compression devices were applied. He received 3.375 g of Zosyn prior to the operation. General anesthesia was induced he was intubated with an endotracheal tube. He was then prepped and draped in sterile fashion. Time-out was performed. An infraumbilical incision was made in the abdomen was entered atraumatically. Pneumoperitoneum was established. Additional working ports were placed suprapubic and left lower quadrant. Generalized inspection of the abdomen was made. There are multiple loops of dilated small bowel in the right lower quadrant there is purulent fluid. The appendix is adherent to the cecum it is clearly perforated. We began by mobilizing the right colon by incising the white line of Toldt. This allowed us to rotate the right colon towards the midline so that we could examine the partially retrocecal appendix. The appendix was clearly perforated and as we bluntly the appendix which was adherent to the cecum it became clear that the base of the appendix was frankly necrotic. We also observed the presence of stool within the abdomen. The portions of the appendix were densely adherent to the colon and we decided to convert to an open operation. Midline laparotomy was made a self-retaining retractor placed. The cecum was then delivered into the midline and using finger fracture the appendix was dissected off of the cecum. The cecum where the appendix attaches was ischemic there were also spots of necrosis on the cecum. I did not feel that we could safely remove the appendix with simply a portion of the cecum for concern of staple line leak given the appearance of the cecum. We therefore proceeded with an ileocecectomy. The right colon was divided just distal to the cecum using the DOUGLAS stapler after window within the mesentery was made. The terminal ileum was divided in similar fashion. The mesentery to the ileocecectomy was divided using the LigaSure. The ileocolic p edicle was tied twice on the stay side and then divided using the LigaSure. The specimen was passed off the field. We irrigated the abdomen with 5 L of fluid until it returned clear. We then fashioned a [id number] functional end and anastomosis between the small bowel in the right colon. An enterotomy and a colotomy were made and then the 2 limbs were joined using a 3rd DOUGLAS stapler blue load 75 mm. The common channel was inspected it was widely patent and hemostatic not under tension. The common opening was then closed with 3-0 PDS suture in a running fashion. The suture line was then imbricated using interrupted silk suture. The mesenteric defect was reapproximated using silk suture. There was no evidenc of leak. The bowel content was then returned to the abdomen which was then irrigated again. We placed a 19 Greek round drain through the left abdominal wall delay in the right pericolic gutter and pelvis. The fascia was then closed using PDS suture followed by skin closure with radames. A total of 20 mL of Exparel mixed with 30 mL of 0.25% bupivacaine were used for local anesthetic. He tolerated the operation well and was transferred to recovery in stable condition. The sponge and instrument count was correct x2. Complications: none Post-operative Condition: stable Disposition: Acute Care
[2023-12-12] MEDS: LACTATED RINGERS 1,000 ML 100 ML IV (18:29)
[2023-12-12] MEDS: TRAZODONE 50 MG TABLET 100 MG PO (20:35)
[2023-12-13] VITALS (26 sets, daily range): BP systolic 105–173; BP diastolic 66–102; PULSE 103–130; RESP 13–28; TEMP 36.6–36.8; O2SAT 89–94
[2023-12-13] MEDS: ONDANSETRON 4 MG/2 ML INJ IV ×2 (02:03→16:50)
[2023-12-13] MEDS: SCOPOLAMINE 1 PATCH TOP (03:35)
[2023-12-13] MEDS: HYDROMORPHONE 1 MG INJ 0.5 MG IV (05:30)
[2023-12-13] MEDS: LORazepam 2 MG/ML INJ 1 MG IV (05:40)
[2023-12-13] MEDS: OXYCODONE IR 10 MG TABLET PO (05:40)
[2023-12-13] MEDS: PIPERACILLIN/TAZO 3.375 GM in SODIUM CHLORIDE 0.9% 100 ML IV ×3 (05:55→21:28)
--- NOTE | 2023-12-13 07:23 | P.PN_ITS ---
Subjective Subjective Interval history: 68-year-old male with hypertension, depression, low testosterone level, chronic low back pain from L4/S1 fusion with chronic lower extremity weakness, and chronic fatigue who was admitted with acute appendicitis. He is presently hospital day number 2 and postoperative day 1 from diagnostic laparoscopy, open ileocecectomy. He was found to have a ruptured appendicitis and purulent peritonitis. The appendix was necrotic from the midportion to the cecum. There are patchy areas of ischemia involving the cecum. There was stool and purulent material within the abdominal cavity. Patient complains of severe abdominal pain. He states it is worse than it was when he came in. He denies any shortness a breath. He does have some mild nausea. He is notably tremulous and states that has been present for about a week. He denies any alcohol or tobacco use. RN is concerned as he has been tachycardic, hypertensive, and diaphoretic this morning. Exam Vital Signs (past 8 hours): - 12/12/23 23:54 12/13/23 05:50 Temperature 98.7 F 98 F Pulse Rate 122 H 127 H Respiratory Rate 22 22 Blood Pressure 145/94 H 142/101 H Pulse Oximetry 93 91 Oxygen Flow Rate 2 2 Oxygen Delivery Method Nasal Cannula Oxygen Flow Rate 2 Narrative Exam Narrative: GEN: Acutely ill-appearing middle-aged male, Alert and oriented x 2, flushed, diaphoretic, uncomfortable appearing HEENT:NC, Face symmetric CHEST: Respiratory excursions symmetric, diminished in the bases bilaterally, otherwise coarse but CTAB CV: Tachycardic with regular rhythm, no M/R/G ABD: Distended, diffusely tender, no bowel tones heard, KIRSTEN draining serosanguineous fluid, surgical dressing shows moderate amount of drainage which appears to be old EXTR: Feet are cool bilaterally with decreased capillary refill, otherwise warm, no C/C/E SKIN: warm and dry, no rash NEURO: Alert and oriented x 2, bilateral hand tremors Objective Labs 12/13/23 07:45 12/13/23 07:45 [facility] Medical History Influenza A Anesthesia Gait instability 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 Postoperative day 1 from ileocecectomy for acute ruptured gangrenous appendicitis Continues on Zosyn therapy. KIRSTEN drainage appears serosanguineous without purulence. Will send a MRSA swab to ensure he does not need the addition of vancomycin. Ongoing management per General surgery. I did increase his pain medication from 0.5 mg Dilaudid to 1 mg Dilaudid q.2h as needed. 2. Peritonitis Patient had stool and pus noted in his peritoneal space. KIRSTEN drainage appears serosanguineous. We will continue close monitoring. 3. Sepsis Secondary to ruptured appendicitis. He remains tachycardic. Significant leukocytosis on admission. Repeat labs pending this morning. Will send a lactate. He is on Zosyn currently. Will send a MRSA swab and add vancomycin if it is positive to broaden coverage. 4. Acute hypoxic respiratory failure Patient is requiring supplemental oxygen to maintain saturations in the 90s. Of note, his O2 saturations have been decreasing. He was noted on the date of admission to have bibasilar atelectasis as well as a chronically elevated hemidiaphragm. Will continue working on pulmonary hygiene and have a low threshold for repeating a chest x-ray 5. Hyponatremia This has been mild. Will continue to monitor. 6. Hypertension Blood pressures have been mildly hypertensive overnight. He is on his home dose of metoprolol. Lisinopril has been held. Suspect some of his blood pressure elevation is secondary to pain/peritonitis. Will continue to monitor. Given sepsis physiology, will defer adding additional antihypertensive therapy for now. 7. Chronic low back pain with baseline gait impairment and chronic lower extremity weakness Await therapy assessments. Code status Full Prophylaxis If not contraindicated, would recommend initiating DVT prophylaxis. Will defer to General surgery. Disposition Pending Time-Based Coding :: [TOTAL MINUTES] spent with patient and on the chart (including review of chart, obtaining history, exam, reviewing outside data, placing orders, documenting exam and treatment plan, and counseling patient) on [DATE].
--- NOTE | 2023-12-13 07:52 | PC.NURSE ---
Upon entering room, pt visibly shaking, tachycardic in 120's-130's sinus, hypertensive, and diaphoretic. Pt c/o 7/10 pain despite pain medication (See MAR). Abdomen taut, round, boardlike. Provider Dr. Polanco notified, on way in. Care ongoing.
[2023-12-13 08:01] LABS: Add Manual Diff / Slide Review NO; Basophils Absolute Auto 0 /uL (0-100); Basophils Percent Auto 0.3 % (0-2); Eosinophils Absolute Auto 0 /uL (0-450); Eosinophils Percent Auto 0.2 % (2-4); Hematocrit 50.7 % (41-53); Hemoglobin 16.4 g/dL (13.5-17.5); Lymphocytes Absolute Auto 800 /uL (1100-4500); Lymphocytes Percent Auto 5.8 % (25-40); Mean Corpuscular HGB Conc 32.4 % (30-36); Mean Corpuscular Hemoglobin 28.9 PG (26-34); Mean Corpuscular Volume 89.4 fL (80-100); Monocytes Absolute Auto 1000 /uL (0-900); Monocytes Percent Auto 7.7 % (3-14); Neutrophils Absolute Auto 11600 /uL (1500-7000); Platelet Count 228 X10^3/uL (150-400); Red Blood Cell Count 5.67 X10^6/uL (4.5-5.9); Red Cell Distribution Width 13.8 % (11.6-14.8); White Blood Cell Count 13.5 X10^3/uL (4.5-11.0)
[2023-12-13] MEDS: HYDROMORPHONE 1 MG INJ IV ×3 (08:07→16:49)
[2023-12-13 08:16] LABS: BUN Creatinine Ratio 24.4 (6-22); Blood Urea Nitrogen 22 mg/dL (9-20); Calcium 8.4 mg/dL (8.4-10.2); Carbon Dioxide 24 mmol/L (22-32); Chloride 100 mmol/L (98-107); Estimated Glomerular Filt Rate > 60 mL/min (>60); Glucose 151 mg/dL (80-110); HEMOLYSIS < 15 (0-50); Potassium 4.1 mmol/L (3.4-5.1); Sodium 132 mmol/L (137-145)
[2023-12-13 08:17] LABS: Lactate (Lactic Acid) 1.4 mmol/L (0.7-2.1)
[2023-12-13 08:27] LABS: Creatine Kinase 236 U/L (55-170)
[2023-12-13 08:28] LABS: Magnesium 1.7 mg/dL (1.6-2.3)
[2023-12-13 08:40] LABS: Troponin I < 0.012 ng/mL (0.01-0.034)
--- NOTE | 2023-12-13 09:16 | P.PN_ITS ---
Subjective Subjective Date Patient Seen: 12/13/23 Time Patient Seen: 09:16 Interval history: Fever resolved, remains tachycardic Incisional abdominal pain Transferred to intensive care unit this morning for closer observation Exam Vital Signs (past 8 hours): - 12/13/23 05:50 12/13/23 08:11 Temperature 98 F 98.3 F Pulse Rate 127 H 103 H Respiratory Rate 22 24 Blood Pressure 142/101 H 105/102 H Pulse Oximetry 91 94 Oxygen Flow Rate 2 0 Oxygen Delivery Method Nasal Cannula Oxygen Flow Rate 0 Narrative Exam Narrative: General adult male alert but clearly uncomfortable and diaphoretic Abdomen compressible appropriately tender to palpation. Midline incision with dressings with some shadowing but no saturation. Intra-abdominal drain serosanguineous Objective Labs 12/13/23 07:45 12/13/23 07:45 Labs: Laboratory Results - last 24 hr 12/13/23 07:45 WBC 13.5 H RBC 5.67 Hgb 16.4 Hct 50.7 MCV 89.4 MCH 28.9 MCHC 32.4 RDW 13.8 Plt Count 228 Neut % (Auto) 86.0 H Lymph % (Auto) 5.8 L [place] % (Auto) 7.7 Eos % (Auto) 0.2 L Baso % (Auto) 0.3 Neut # (Auto) 42313 H Lymph # (Auto) 800 L [place] # (Auto) 1000 H Eos # (Auto) 0 Baso # (Auto) 0 Sodium 132 L Potassium 4.1 Chloride 100 Carbon Dioxide 24 BUN 22 H Creatinine 0.90 Estimated GFR > 60 BUN/Creatinine Ratio 24.4 H Glucose 151 H Lactate 1.4 Calcium 8.4 Magnesium 1.7 Total Creatine Kinase 236 H Troponin I < 0.012 [facility] Medical History Influenza A Anesthesia Gait instability 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 Bleeding from ear 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) Congestive heart failure Coronary artery aneurysm Pure hypercholesterolemia (07/30/16) Hypogonadism in male (04/23/16) Essential hypertension (04/23/16) Surgical History H/O surgical amputation of finger H/O vasectomy Hx of tonsillectomy Family History Father Heart attack Mother Dementia Sister Cancer Social History household members: spouse and family Smoking Status: Never smoker alcohol intake: former substance use type: does not use Assessment & Plan Post-op Postoperative Procedures: Procedures Operation Date: 12/12/23 15:30 Actual Procedure Side Surgeon p Laparotomy Ileocecectomy Jorge Polanco MD Postoperative status narrative: 68-year-old male postoperative day 1 status post open ileocecectomy for ruptured appendicitis with necrotic appendix and cecum. As expected he has significant abdominal pain and sepsis. Leukocytosis downtrending abdominal drain serosanguineous, reassuring. -okay for clears as tolerates -continue Zosyn and IV fluid -SCDs and prophylactic Lovenox
[2023-12-13 09:59] LABS: MRSA (Nasal) PCR NOT DETECTED (Not Detect)
[2023-12-13] MEDS: METOPROLOL ER 25 MG TABLET PO (10:20)
[2023-12-13] MEDS: LACTATED RINGERS 1,000 ML 100 ML IV ×2 (10:20→18:20)
--- NOTE | 2023-12-13 11:55 | CM.DPNOTE ---
DCP Note WHEEL ALIGNER reviewed EMR. Pt POD1 from open ileocecectomy for ruptured appendix. Per chart/hospitalist in morning rounds, necrotic appendix with stool and purulent found in abdomen. Pt transferred to ICU for closer monitoring. Pt's pain was 10/10 in the morning. Per hospitalist, hold PT eval for now. pretty severe tremors/shaking. Remains on oxygen 2ltrs. IV abx for sepsis. Medical POC continues to develop. PT evals pending. Update TCM OP team with more tomorrow. home with family support and HH likely. CM team will continue to follow closely ALBINO Forrester
--- NOTE | 2023-12-13 12:10 | PT-IP ANOTE ---
PT eval on hold for today as pt is not medically stable at this time. will f/u
[2023-12-13] MEDS: MAGNESIUM SULFATE 2 GM/50 ML PIGGYBACK IV (12:21)
[2023-12-13] MEDS: TRAZODONE 50 MG TABLET 100 MG PO (21:28)
[2023-12-13] MEDS: CELECOXIB 200 MG CAPSULE PO (21:28)
[2023-12-14] VITALS (61 sets, daily range): BP systolic 132–174; BP diastolic 86–109; PULSE 113–137; RESP 21–39; TEMP 36.5–36.9; O2SAT 89–94
[2023-12-14] MEDS: LACTATED RINGERS 1,000 ML 50 ML IV (02:42)
[2023-12-14] MEDS: LORazepam 2 MG/ML INJ 1 MG IV ×2 (04:43→22:34)
[2023-12-14 05:03] LABS: Add Manual Diff / Slide Review NO; Basophils Absolute Auto 0 /uL (0-100); Basophils Percent Auto 0.3 % (0-2); Eosinophils Absolute Auto 0 /uL (0-450); Hematocrit 48.4 % (41-53); Hemoglobin 15.9 g/dL (13.5-17.5); Lymphocytes Absolute Auto 400 /uL (1100-4500); Lymphocytes Percent Auto 2.8 % (25-40); Mean Corpuscular HGB Conc 32.8 % (30-36); Mean Corpuscular Hemoglobin 29.3 PG (26-34); Mean Corpuscular Volume 89.4 fL (80-100); Monocytes Absolute Auto 1100 /uL (0-900); Neutrophils Absolute Auto 14100 /uL (1500-7000); Neutrophils Percent Auto 89.9 % (50-75); Platelet Count 263 X10^3/uL (150-400); Red Blood Cell Count 5.41 X10^6/uL (4.5-5.9); Red Cell Distribution Width 13.3 % (11.6-14.8); White Blood Cell Count 15.7 X10^3/uL (4.5-11.0)
--- NOTE | 2023-12-14 05:24 | DI.RAD.S_ITS ---
PROCEDURE: XR CHEST 1V INDICATIONS: shortness of breath concerning for volume overload TECHNIQUE: One view of the chest was acquired. COMPARISON: [facility], CR, XR CHEST 1V, 12/11/2023, 23:00. FINDINGS: Surgical changes and devices: None. Lungs and pleura: Hypoinflated lungs. Bronchial wall thickening. Probable right base consolidation versus atelectasis. No definite pleural effusions. No pneumothorax. Mediastinum: Cardiomediastinal contour is accentuated due to very low lung volumes. There is crowding of the central vascular markings. Bones and chest wall: No suspicious bony lesions. Overlying soft tissues appear unremarkable. IMPRESSION: Very low lung volumes compromises visualization of central vessels and interstitial markings. Volume overload is not excluded. Dictated by: Angy Gonzalez M.D. on 12/14/2023 at 7:25 Approved by: Angy Gonzalez M.D. on 12/14/2023 at 7:27
[2023-12-14] MEDS: HYDROMORPHONE 1 MG INJ IV (05:38)
[2023-12-14] MEDS: PIPERACILLIN/TAZO 3.375 GM in SODIUM CHLORIDE 0.9% 100 ML IV ×2 (05:38→13:21)
[2023-12-14 05:45] LABS: Magnesium 2.3 mg/dL (1.6-2.3)
[2023-12-14 05:46] LABS: Blood Urea Nitrogen 20 mg/dL (9-20); Calcium 8.6 mg/dL (8.4-10.2); Carbon Dioxide 27 mmol/L (22-32); Chloride 96 mmol/L (98-107); Estimated Glomerular Filt Rate > 60 mL/min (>60); Glucose 171 mg/dL (80-110); HEMOLYSIS < 15 (0-50); Potassium 3.8 mmol/L (3.4-5.1); Sodium 132 mmol/L (137-145)
--- NOTE | 2023-12-14 06:31 | PC.NURSE ---
0555--status report called to Dr Ohara re: increased HR and ectopy, increased b/p; increase in labored breathing; IVF stopped; CXR to be done
[2023-12-14 06:35] LABS: Phosphorous 2.6 mg/dL (2.3-3.7)
[2023-12-14] MEDS: FUROSEMIDE 40 MG/4 ML VIAL IV ×2 (06:53→08:32)
--- NOTE | 2023-12-14 07:38 | PC.NURSE ---
0672--spoke w/ Dr Ohara; orders rec'd and Lasix 40mg iv given
--- NOTE | 2023-12-14 07:40 | PT-IP ANOTE ---
PT consult received and PT reviews chart and checks with nsg. Nsg reports hold PT today, concerns for fluid overload, chest x-ray not back and possible need to check blood gases. Nsg reports at baseline, pt has unsteadiness and uses walker and PT will keep this in mind for assessment. Will con't PT efforts. RW in room for pt.
--- NOTE | 2023-12-14 08:15 | PT-IP ANOTE ---
Spoke with attending and she recommends d/c PT at this time, pt may possibly need vent in future. Will d/c PT order.
[2023-12-14] MEDS: ENOXAPARIN 40 MG/0.4 ML SYRINGE SUBCUT (09:41)
[2023-12-14] MEDS: METOPROLOL ER 25 MG TABLET PO (09:41)
[2023-12-14] MEDS: CITALOPRAM 10 MG TABLET 20 MG PO (09:41)
[2023-12-14] MEDS: DULOXETINE 30 MG CAPSULE 60 MG PO (09:41)
[2023-12-14] MEDS: INSULIN LISPRO 100 UNIT/ML 3ML VIAL SUBCUT ×2 (09:46→17:14)
[2023-12-14] MEDS: CELECOXIB 200 MG CAPSULE PO ×2 (09:58→21:15)
[2023-12-14] MEDS: METOPROLOL TARTRATE 5 MG/5 ML INJ IV (10:55)
--- NOTE | 2023-12-14 11:12 | DI.ECHO.S_ITS ---
[facility] +---------+ [facility] : : [address] : : [place] : : [id number] : : Phone: [phone] Echocardiogram Report + + :Name: MICHAEL JARA Study Date: 12/14/2023 Height: 75 in : :Hospital ReadingLocation: Weight: 240 lb : : Gender: Male BSA: 2.4 m2 : :: 1955 Age: 68 yrs BP: 160/86 mmHg: :Reason For Study: CHF, VOLUME OVERLOAD, CRITICALLY ILL : :Ordering Physician: NAT, : :WES Performed By: Dinora Mendoza : :Referring: WES JOHNS : + + Interpretation Summary Definity was not used due to patient being considered critically ill, can use if necessary once patient is more stable. This is a complete stat transthoracic echocardiogram to assess LV function/heart failure status. Rhythm appears to be sinus tachycardia at rate 130bpm. Normal left ventricular size with possibly mildly increased wall thickness, moderately reduced left ventricular function (visual estimate 30-35%) with multifocal wall motion abnormalities, including appearance of septal bounce either due to conduction delay or equalization of cardiac pressure such as in constriction/restriction. Also the inferolateral mid ventricle and apex, anteroseptal apex are all barely kinetic. Inferior and anterior base appear robust but apical anterior wall and mid ventricle are hypokinetic. Basal and mid lateral wall are not well visualized. Normal right ventricular size and function. Valve function is not well visualized but grossly normal valve structure and function. CVP not well visualized. Estimated PASP likely mildly elevated, at 29mmhg = CVP. No pericardial effusion, though there is a prominent fat pad. No studies for comparison. Overall, patient has a non ischemic appearing cardiomyopathy, such as due to stress cardiomyopathy, toxins, infections, inflammation, or genetic causes. However, ischemic cardiomyopathy should also be ruled out. I have communicated these results to the referring physician at [facility]. Procedure: A two-dimensional transthoracic echocardiogram with color flow and Doppler was performed. The study quality was technically difficult. The patient had an echocardiogram, but there is no comparison study available. Patient scanned in a supine position, no subcostal window due to ileocecetomy. The patient was in sinus tachycardia with heart rates between 111-132 bpm during the exam. Left Ventricle: The left ventricle is normal in size. Left ventricular wall thickness is mildly increased. Left ventricular ejection fraction is estimated to be 30 +/- 5%. Diastolic function could not be accurately assessed due to tachycardia. Right Ventricle: The right ventricle is normal in size and function. Atria: The left atrial size is normal. Right atrial size is normal. There is no Doppler evidence for an interatrial shunt. Mitral Valve: The mitral valve is normal in structure and function. There is no mitral regurgitation noted. Aortic Valve: The aortic valve is not well visualized. The aortic valve opens well. There is no aortic valve stenosis. No aortic regurgitation is present. Tricuspid Valve: The tricuspid valve is normal in structure and function. There is mild tricuspid regurgitation. Right ventricular systolic pressure is estimated to be 29 mmHg plus the clinically estimated CVP which cannot be estimated on this exam. Pulmonic Valve: The pulmonic valve is not well seen, but is grossly normal. There is no pulmonic valvular regurgitation. Great Vessels: The aortic root is normal size. The dimensions of the ascending aorta are normal. The inferior vena cava was not well visualized. Pericardium/ Pleura There is no pericardial effusion. There is no pleural effusion. MMode/2D Measurements & Calculations LVIDd: 4.7 cm LVOT diam: 2.1 cm LVIDs: 3.9 cm Ao root diam: 3.4 cm FS: 16.9 % asc Aorta Diam: 3.3 cm IVSd: 0.91 cm Ao Arch Diam (Prox Trans): 3.1 cm LVPWd: 1.3 cm LV cruz. diameter/BSA (cm/m^2): 2.0 LV sys. diameter/BSA (cm/m^2): 1.6 LA A2 area: 13.9 cm2 RA long axis: 4.7 cm LA A4 area: 9.9 cm2 RA area: 10.1 cm2 LA length (vol): 3.9 cm RA vol: 18.3 ml LA vol: 30.1 ml RA : 7.7 ml/m2 LA vol index: 12.7 ml/m2 RVD1 (basal): 2.7 cm RVD2 (mid): 2.4 cm TAPSE: 2.0 cm Doppler Measurements & Calculations Ao V2 max: 70.2 cm/sec LVOT Max Bob: 56.2 cm/sec Ao V2 mean: 53.8 cm/sec LV V1 max P.3 mmHg Ao max P.0 mmHg LV V1 VTI: 8.1 cm Ao mean P.2 mmHg BECKI(I,D): 2.9 cm2 Ao V2 VTI: 9.7 cm BECKI(V,D): 2.8 cm2 sev ratio: 0.84 BECKI indexed to BSA (cm^2/m^2): 1.2 MV E max bob: 52.2 cm/sec TR max bob: 269.1 cm/sec Med Peak E' Bob: 5.1 cm/sec TR max P.0 mmHg E/E' med: 10.2 PA pr(Accel): 56.7 mmHg Lat Peak E' Bob: 8.0 cm/sec E/E' lat: 6.5 E/e' average: 8.4 MV dec time: 0.10 sec SV(LVOT): 28.1 ml Reading Physician:KATJA
--- NOTE | 2023-12-14 11:23 | CM.DPNOTE ---
DCP Note TRAINING DEVELOPMENT DIRECTOR reviewed EMR. Per provider in morning rounds, pt doing worse today,. More confused. May need intubation. Echo pending, pt reported to nursing staff today PMH of CHF. Fluid overload likely in abdomen. DC'd PT due to medical instability at this time. Medical POC continues to develop. PT evals pending. Update TCM OP team when DCP known.. home with family support and HH likely. CM team will continue to follow closely ALBINO Forrester
--- NOTE | 2023-12-14 12:27 | PM.PN.1 ---
Subjective Subjective Date Patient Seen: 12/14/23 Time Patient Seen: 12:28 Interval history: Increased work of breathing since yesterday No abdominal complaints Undergoing echocardiogram today Exam Vital Signs (past 8 hours): - 12/14/23 04:30 12/14/23 04:58 12/14/23 04:58 Pulse Rate 121 H 126 H Respiratory Rate 33 H 35 H Blood Pressure 147/106 H Pulse Oximetry 89 L 93 Oxygen Delivery Method 12/14/23 05:00 12/14/23 05:00 12/14/23 05:14 Pulse Rate 126 H Respiratory Rate 32 H Blood Pressure 156/102 H 156/106 H Pulse Oximetry 93 Oxygen Delivery Method 12/14/23 05:14 12/14/23 05:16 12/14/23 05:16 Pulse Rate 131 H 131 H Respiratory Rate 35 H 39 H Blood Pressure 156/109 H Pulse Oximetry 93 93 Oxygen Delivery Method 12/14/23 05:30 12/14/23 05:44 12/14/23 05:44 Pulse Rate 130 H 130 H Respiratory Rate 38 H 32 H Blood Pressure 170/108 H Pulse Oximetry 92 92 Oxygen Delivery Method 12/14/23 05:47 12/14/23 05:47 12/14/23 06:00 Pulse Rate 131 H 132 H Respiratory Rate 27 H 24 Blood Pressure 169/107 H Pulse Oximetry 92 93 Oxygen Delivery Method 12/14/23 06:00 12/14/23 06:30 12/14/23 07:00 Pulse Rate 135 H 133 H Respiratory Rate 26 H 21 Blood Pressure 164/107 H Pulse Oximetry 92 92 Oxygen Delivery Method 12/14/23 07:00 12/14/23 07:30 12/14/23 08:00 Pulse Rate 134 H Respiratory Rate 26 H Blood Pressure 174/104 H Pulse Oximetry 93 Oxygen Delivery Method Nasal Cannula 12/14/23 08:00 12/14/23 08:00 12/14/23 08:30 Pulse Rate 135 H 133 H Respiratory Rate 32 H 26 H Blood Pressure 154/105 H Pulse Oximetry 92 93 Oxygen Delivery Method 12/14/23 09:00 12/14/23 09:00 12/14/23 09:30 Pulse Rate 134 H 134 H Respiratory Rate 29 H 29 H Blood Pressure 144/106 H Pulse Oximetry 94 93 Oxygen Delivery Method 12/14/23 09:41 12/14/23 10:00 12/14/23 10:01 Pulse Rate 137 H 133 H 133 H Respiratory Rate 28 H 30 H Blood Pressure 144/106 H Pulse Oximetry 93 93 Oxygen Delivery Method 12/14/23 10:01 12/14/23 10:11 12/14/23 10:30 Pulse Rate 137 H 137 H Respiratory Rate 31 H Blood Pressure 160/86 H 160/86 H Pulse Oximetry 93 Oxygen Delivery Method 12/14/23 11:00 12/14/23 11:00 12/14/23 11:30 Pulse Rate 119 H 117 H Respiratory Rate 29 H 28 H Blood Pressure 157/109 H Pulse Oximetry 93 91 Oxygen Delivery Method 12/14/23 12:01 Pulse Rate 122 H Respiratory Rate 33 H Blood Pressure Pulse Oximetry 92 Oxygen Delivery Method Oxygen Delivery Method Nasal Cannula Oxygen Flow Rate 2 Narrative Exam Narrative: Abdomen is minimally distended Dressings intact Objective Labs 12/14/23 04:25 12/14/23 04:25 Labs: Laboratory Results - last 24 hr 12/14/23 04:25 WBC 15.7 H RBC 5.41 Hgb 15.9 Hct 48.4 MCV 89.4 MCH 29.3 MCHC 32.8 RDW 13.3 Plt Count 263 Neut % (Auto) 89.9 H Lymph % (Auto) 2.8 L [place] % (Auto) 7.0 Eos % (Auto) 0.0 L Baso % (Auto) 0.3 Neut # (Auto) 39061 H Lymph # (Auto) 400 L [place] # (Auto) 1100 H Eos # (Auto) 0 Baso # (Auto) 0 Sodium 132 L Potassium 3.8 Chloride 96 L Carbon Dioxide 27 BUN 20 Creatinine 0.87 Estimated GFR > 60 BUN/Creatinine Ratio 23.0 H Glucose 171 H Calcium 8.6 Phosphorus 2.6 Magnesium 2.3 PFSH Medical History Influenza A Anesthesia Gait instability 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 Bleeding from ear 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80 - Unspecified acute appendicitis Status: Acute Plan Continue cardiorespiratory support Time-Based Coding :: [TOTAL MINUTES] spent with patient and on the chart (including review of chart, obtaining history, exam, reviewing outside data, placing orders, documenting exam and treatment plan, and counseling patient) on [DATE].
[2023-12-14] MEDS: FUROSEMIDE 100 MG in SODIUM CHLORIDE 0.9% 50 ML IV (12:36)
[2023-12-14 12:38] LABS: BUN Creatinine Ratio 26.9 (6-22); Blood Urea Nitrogen 28 mg/dL (9-20); Calcium 8.5 mg/dL (8.4-10.2); Carbon Dioxide 28 mmol/L (22-32); Chloride 97 mmol/L (98-107); Estimated Glomerular Filt Rate > 60 mL/min (>60); Glucose 185 mg/dL (80-110); HEMOLYSIS < 15 (0-50); Lactate (Lactic Acid) 1.7 mmol/L (0.7-2.1); Potassium 3.7 mmol/L (3.4-5.1); Sodium 134 mmol/L (137-145)
[2023-12-14 12:48] LABS: NT-proBNP (BNP-Adult 18+) 424 pg/mL (<125)
[2023-12-14 12:50] LABS: Troponin I < 0.012 ng/mL (0.01-0.034)
--- NOTE | 2023-12-14 15:22 | PM.PN.1 ---
Subjective Subjective Interval history: 68-year-old male with hypertension, depression, low testosterone level, chronic low back pain from L4/S1 fusion with chronic lower extremity weakness, and chronic fatigue who was admitted with acute appendicitis. He is presently hospital day number 3 and postoperative day 2 from diagnostic laparoscopy, open ileocecectomy. He was found to have a ruptured appendicitis and purulent peritonitis. The appendix was necrotic from the midportion to the cecum. There are patchy areas of ischemia involving the cecum. There was stool and purulent material within the abdominal cavity. Yesterday he was transferred to the intensive care unit due to ongoing symptoms and signs of sepsis. He was also having significantly increased pain and Dilaudid was increased from 0.5 mg IV q.2 hours to 1 mg IV q.2 hours as needed. This morning, RN is concerned about volume overload and increased work of breathing. She notes patient mentions today a history of congestive heart failure. There is also report of a previous echocardiogram from 2006 that showed an ejection fraction of 40%. At approximately 6:40 a.m. this morning he received 40 mg of IV Lasix. Thus far he has put out 350 cc of urine (1.5 hrs). Patient reports he has feeling a little bit better today. He does feel somewhat confused still. He does report his abdominal pain is better compared to yesterday. He does note being somewhat short of breath. Exam Vital Signs (past 8 hours): - 12/14/23 07:30 12/14/23 08:00 12/14/23 08:00 Pulse Rate 134 H 135 H Respiratory Rate 26 H 32 H Blood Pressure Pulse Oximetry 93 92 Oxygen Delivery Method Nasal Cannula Oxygen Flow Rate 12/14/23 08:00 12/14/23 08:30 12/14/23 09:00 Pulse Rate 133 H Respiratory Rate 26 H Blood Pressure 154/105 H 144/106 H Pulse Oximetry 93 Oxygen Delivery Method Oxygen Flow Rate 12/14/23 09:00 12/14/23 09:30 12/14/23 09:41 Pulse Rate 134 H 134 H 137 H Respiratory Rate 29 H 29 H Blood Pressure 144/106 H Pulse Oximetry 94 93 Oxygen Delivery Method Oxygen Flow Rate 12/14/23 10:00 12/14/23 10:01 12/14/23 10:01 Pulse Rate 133 H 133 H Respiratory Rate 28 H 30 H Blood Pressure 160/86 H Pulse Oximetry 93 93 Oxygen Delivery Method Oxygen Flow Rate 12/14/23 10:11 12/14/23 10:30 12/14/23 11:00 Pulse Rate 137 H 137 H 119 H Respiratory Rate 31 H 29 H Blood Pressure 160/86 H Pulse Oximetry 93 93 Oxygen Delivery Method Oxygen Flow Rate 12/14/23 11:00 12/14/23 11:30 12/14/23 12:01 Pulse Rate 117 H 122 H Respiratory Rate 28 H 33 H Blood Pressure 157/109 H Pulse Oximetry 91 92 Oxygen Delivery Method Oxygen Flow Rate 12/14/23 12:30 12/14/23 12:30 12/14/23 13:00 Pulse Rate 121 H Respiratory Rate 29 H Blood Pressure 141/97 H 152/96 H Pulse Oximetry 91 Oxygen Delivery Method Oxygen Flow Rate 12/14/23 13:00 12/14/23 13:35 Pulse Rate 119 H Respiratory Rate 27 H 25 H Blood Pressure Pulse Oximetry 94 93 Oxygen Delivery Method Oxygen Flow Rate 4 Oxygen Delivery Method Nasal Cannula Oxygen Flow Rate 4 Narrative Exam Narrative: GEN: Acutely ill-appearing middle-aged male, Alert and oriented x 1-2 HEENT:NC, Face symmetric CHEST: Tachypneic, dyspneic Respiratory excursions symmetric, diminished in the bases bilaterally, significant upper airway noise, crackles bilaterally CV: Tachycardic with regular rhythm, no M/R/G ABD: Increased distention compared with yesterday, decreased tenderness compared with yesterday, no bowel tones heard but difficult to hear over his respiratory sounds, KIRSTEN draining serosanguineous fluid, surgical dressing without any new drainage EXTR: Feet are cool bilaterally with decreased capillary refill, otherwise warm, no C/C/E SKIN: warm and dry, no rash NEURO: Alert and oriented x 1-2, bilateral hand tremors are decreased Objective Labs 12/14/23 04:25 12/14/23 12:15 Labs: Laboratory Results - last 24 hr 12/14/23 12/14/23 04:25 12:15 WBC 15.7 H RBC 5.41 Hgb 15.9 Hct 48.4 MCV 89.4 MCH 29.3 MCHC 32.8 RDW 13.3 Plt Count 263 Neut % (Auto) 89.9 H Lymph % (Auto) 2.8 L [place] % (Auto) 7.0 Eos % (Auto) 0.0 L Baso % (Auto) 0.3 Neut # (Auto) 97617 H Lymph # (Auto) 400 L [place] # (Auto) 1100 H Eos # (Auto) 0 Baso # (Auto) 0 Sodium 132 L 134 L Potassium 3.8 3.7 Chloride 96 L 97 L Carbon Dioxide 27 28 BUN 20 28 H Creatinine 0.87 1.04 Estimated GFR > 60 > 60 BUN/Creatinine Ratio 23.0 H 26.9 H Glucose 171 H 185 H Lactate 1.7 Calcium 8.6 8.5 Phosphorus 2.6 Magnesium 2.3 Troponin I < 0.012 NT-Pro-B Natriuret Pep 424 H PFSH Medical History Influenza A Anesthesia Gait instability 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 Postoperative day 2 from ileocecectomy for acute ruptured gangrenous appendicitis Continues on Zosyn therapy. MRSA swab was negative. KIRSTEN drainage appears serosanguineous without purulence. Ongoing management per General surgery. 2. Peritonitis Patient had stool and pus noted in his peritoneal space. KIRSTEN drainage appears serosanguineous. We will continue close monitoring. 3. Sepsis Secondary to ruptured appendicitis. He remains tachycardic. Lactate remains within normal limits at 1.7 today. White blood cell count is increased today from 13.5-15.7. 4. Acute hypoxic respiratory failure Patient is requiring supplemental oxygen to maintain saturations in the 90s. His oxygen need is now up to 4 L from 2 L yesterday. Suspect a significant portion of this is volume overload/pulmonary edema. 5. Volume overload/congestive heart failure Will obtain a stat echocardiogram given a new report of congestive heart failure history. Will give an additional stat dose of furosemide 40 mg IV. He is significantly hypertensive and has a normal creatinine. Will check electrolytes later in the day to see if he needs any electrolyte replacement with diuresis. 6. Hyponatremia Sodium is stable at 132 this morning. Will continue to monitor. 6. Hypertension Blood pressures remain hypertensive. Anticipate diuresis will help with blood pressure control. Will continue monitoring closely. 7. Chronic low back pain with baseline gait impairment and chronic lower extremity weakness Presently holding physical therapy due to his critical illness. Code status Full Prophylaxis If not contraindicated, would recommend initiating DVT prophylaxis. Will defer to General surgery. Disposition Pending Time-Based Coding :: [TOTAL MINUTES] spent with patient and on the chart (including review of chart, obtaining history, exam, reviewing outside data, placing orders, documenting exam and treatment plan, and counseling patient) on [DATE].
[2023-12-14 16:20] LABS: Albumin 3.4 g/dL (3.5-5.0)
[2023-12-14] MEDS: MEROPENEM 2 GM in SODIUM CHLORIDE 0.9% 100 ML IV ×2 (16:47→23:25)
[2023-12-14 16:51] LABS: Blood Urea Nitrogen 33 mg/dL (9-20); Calcium 8.5 mg/dL (8.4-10.2); Carbon Dioxide 29 mmol/L (22-32); Chloride 97 mmol/L (98-107); Estimated Glomerular Filt Rate > 60 mL/min (>60); Glucose 176 mg/dL (80-110); HEMOLYSIS 17 (0-50); Potassium 3.7 mmol/L (3.4-5.1); Sodium 133 mmol/L (137-145)
[2023-12-14] MEDS: ONDANSETRON 4 MG/2 ML INJ IV (19:51)
[2023-12-14 20:52] LABS: Allen Test for ABG Passed? Positive; Blood Gas Collection Site Left Radial; Delivery System Cannula; HCO3 ABG 27 mmol/L (23-27); Oxygen Saturation ABG 95 % (95-100); PCO2 ABG 37.7 mmHg (35-45); PO2 ABG 72 mmHg (80-100); TCO2 ABG 27 mmol/L (23-27); pH ABG 7.46 (7.35-7.45)
[2023-12-14] MEDS: TRAZODONE 50 MG TABLET 100 MG PO (21:15)
[2023-12-14 22:31] LABS: BUN Creatinine Ratio 38.1 (6-22); Blood Urea Nitrogen 37 mg/dL (9-20); Calcium 8.5 mg/dL (8.4-10.2); Carbon Dioxide 28 mmol/L (22-32); Chloride 95 mmol/L (98-107); Estimated Glomerular Filt Rate > 60 mL/min (>60); Glucose 181 mg/dL (80-110); HEMOLYSIS < 15 (0-50); Potassium 3.3 mmol/L (3.4-5.1); Sodium 131 mmol/L (137-145)
[2023-12-14] MEDS: POTASSIUM CHLORIDE IN WATER 10 MEQ/100 ML PIGGYBACK 100 MEQ IV (23:24)
[2023-12-15] VITALS (48 sets, daily range): BP systolic 137–178; BP diastolic 78–110; PULSE 97–148; RESP 19–34; TEMP 36.2–36.9; O2SAT 86–94
[2023-12-15] MEDS: POTASSIUM CHLORIDE IN WATER 10 MEQ/100 ML PIGGYBACK 100 MEQ IV ×3 (00:24→02:29)
[2023-12-15] MEDS: FUROSEMIDE 100 MG in SODIUM CHLORIDE 0.9% 50 ML IV ×2 (03:09→23:33)
[2023-12-15] MEDS: METOPROLOL TARTRATE 5 MG/5 ML INJ IV ×4 (03:56→22:03)
[2023-12-15 05:04] LABS: Add Manual Diff / Slide Review NO; Basophils Absolute Auto 0 /uL (0-100); Basophils Percent Auto 0.1 % (0-2); Eosinophils Absolute Auto 0 /uL (0-450); Hematocrit 45.4 % (41-53); Hemoglobin 14.9 g/dL (13.5-17.5); Lymphocytes Absolute Auto 600 /uL (1100-4500); Mean Corpuscular HGB Conc 32.8 % (30-36); Mean Corpuscular Hemoglobin 29.1 PG (26-34); Mean Corpuscular Volume 88.8 fL (80-100); Monocytes Absolute Auto 1500 /uL (0-900); Monocytes Percent Auto 9.8 % (3-14); Neutrophils Absolute Auto 13600 /uL (1500-7000); Neutrophils Percent Auto 86.1 % (50-75); Platelet Count 291 X10^3/uL (150-400); Red Blood Cell Count 5.11 X10^6/uL (4.5-5.9); Red Cell Distribution Width 13.4 % (11.6-14.8); White Blood Cell Count 15.8 X10^3/uL (4.5-11.0)
[2023-12-15 05:12] LABS: BUN Creatinine Ratio 32.7 (6-22); Blood Urea Nitrogen 35 mg/dL (9-20); Calcium 8.5 mg/dL (8.4-10.2); Carbon Dioxide 30 mmol/L (22-32); Chloride 95 mmol/L (98-107); Estimated Glomerular Filt Rate > 60 mL/min (>60); Glucose 148 mg/dL (80-110); HEMOLYSIS < 15 (0-50); Magnesium 2.2 mg/dL (1.6-2.3); Phosphorous 2.5 mg/dL (2.3-3.7); Potassium 3.6 mmol/L (3.4-5.1); Sodium 135 mmol/L (137-145)
--- NOTE | 2023-12-15 06:58 | PC.NURSE ---
Pt has remained confused all shift;he pulled out one iv, has been restless, and has hardly slept; he remains on a lasix drip at 5mg/hr; he was given a dose of iv metoprolol for hr-120s w/ increasing ectopy and sbp>170; currently 155/89 w/ HR-106; he is tolerating clear liquids but does not have any bowel sounds; he was given KCl 40mEq ivpb
[2023-12-15] MEDS: ENOXAPARIN 40 MG/0.4 ML SYRINGE SUBCUT (08:33)
[2023-12-15] MEDS: MEROPENEM 2 GM in SODIUM CHLORIDE 0.9% 100 ML IV ×2 (08:37→16:42)
[2023-12-15] MEDS: HYDROMORPHONE 1 MG INJ IV ×2 (10:41→23:27)
[2023-12-15] MEDS: INSULIN LISPRO 100 UNIT/ML 3ML VIAL SUBCUT ×2 (12:56→17:24)
--- NOTE | 2023-12-15 13:33 | P.PN_ITS ---
Subjective Subjective Interval history: 68-year-old male with hypertension, depression, low testosterone level, chronic low back pain from L4/S1 fusion with chronic lower extremity weakness, and chronic fatigue who was admitted with acute appendicitis. He is presently hospital day number 3 and postoperative day 2 from diagnostic laparoscopy, open ileocecectomy. He was found to have a ruptured appendicitis and purulent peritonitis. The appendix was necrotic from the midportion to the cecum. There are patchy areas of ischemia involving the cecum. There was stool and purulent material within the abdominal cavity. Yesterday he was transferred to the intensive care unit due to ongoing symptoms and signs of sepsis. He was also having significantly increased pain and Dilaudid was increased from 0.5 mg IV q.2 hours to 1 mg IV q.2 hours as needed. This morning, RN is concerned about volume overload and increased work of breathing. She notes patient mentions today a history of congestive heart failure. There is also report of a previous echocardiogram from 2006 that showed an ejection fraction of 40%. At approximately 6:40 a.m. this morning he received 40 mg of IV Lasix. Thus far he has put out 350 cc of urine (1.5 hrs). Patient reports he has feeling a little bit better today. He does feel somewhat confused still. He does report his abdominal pain is better compared to yesterday. He does note being somewhat short of breath. Exam Vital Signs (past 8 hours): - 12/15/23 06:00 12/15/23 06:00 12/15/23 06:30 Temperature Pulse Rate 103 H 109 H Respiratory Rate 25 H 27 H Blood Pressure 149/102 H Pulse Oximetry 90 L 91 Oxygen Delivery Method Oxygen Flow Rate Fraction of Inspired Oxygen 12/15/23 06:30 12/15/23 07:00 12/15/23 07:00 Temperature Pulse Rate 105 H Respiratory Rate 26 H Blood Pressure 151/100 H 155/89 H Pulse Oximetry 91 Oxygen Delivery Method Oxygen Flow Rate Fraction of Inspired Oxygen 12/15/23 07:00 12/15/23 07:30 12/15/23 07:30 Temperature Pulse Rate 103 H Respiratory Rate 24 Blood Pressure 147/101 H Pulse Oximetry 90 L Oxygen Delivery Method Nasal Cannula Oxygen Flow Rate Fraction of Inspired Oxygen 12/15/23 07:38 12/15/23 08:00 12/15/23 08:01 Temperature 98.2 F Pulse Rate 113 H 114 H Respiratory Rate 30 H 26 H Blood Pressure Pulse Oximetry 93 91 90 L Oxygen Delivery Method Nasal Cannula Oxygen Flow Rate 4 Fraction of Inspired Oxygen 32 12/15/23 08:01 12/15/23 08:30 12/15/23 08:31 Temperature Pulse Rate 118 H 119 H Respiratory Rate 29 H 31 H Blood Pressure 152/106 H Pulse Oximetry 91 89 L Oxygen Delivery Method Oxygen Flow Rate Fraction of Inspired Oxygen 12/15/23 08:31 12/15/23 09:00 12/15/23 09:00 Temperature Pulse Rate 112 H Respiratory Rate 24 Blood Pressure 140/94 H 139/103 H Pulse Oximetry 91 Oxygen Delivery Method Oxygen Flow Rate Fraction of Inspired Oxygen 12/15/23 09:30 12/15/23 09:30 12/15/23 10:00 Temperature Pulse Rate 108 H 111 H Respiratory Rate 29 H 27 H Blood Pressure 150/97 H Pulse Oximetry 88 L 90 L Oxygen Delivery Method Oxygen Flow Rate Fraction of Inspired Oxygen 12/15/23 10:00 12/15/23 10:30 12/15/23 10:30 Temperature Pulse Rate 114 H Respiratory Rate 26 H Blood Pressure 151/98 H 154/90 H Pulse Oximetry 92 Oxygen Delivery Method Oxygen Flow Rate Fraction of Inspired Oxygen 12/15/23 11:00 12/15/23 11:00 12/15/23 11:30 Temperature Pulse Rate 115 H 121 H Respiratory Rate 21 27 H Blood Pressure 168/100 H Pulse Oximetry 92 88 L Oxygen Delivery Method Oxygen Flow Rate Fraction of Inspired Oxygen 12/15/23 11:30 12/15/23 12:00 12/15/23 12:00 Temperature Pulse Rate 119 H Respiratory Rate 20 Blood Pressure 143/92 H 153/110 H Pulse Oximetry 91 Oxygen Delivery Method Oxygen Flow Rate Fraction of Inspired Oxygen 12/15/23 12:30 12/15/23 12:30 12/15/23 13:00 Temperature Pulse Rate 97 H 102 H Respiratory Rate 22 23 Blood Pressure 142/100 H Pulse Oximetry 94 92 Oxygen Delivery Method Oxygen Flow Rate Fraction of Inspired Oxygen 12/15/23 13:03 12/15/23 13:03 Temperature Pulse Rate 101 H Respiratory Rate 24 Blood Pressure 157/93 H Pulse Oximetry 89 L Oxygen Delivery Method Oxygen Flow Rate Fraction of Inspired Oxygen Fraction of Inspired Oxygen 32 SaO2/FiO2 Ratio 290 Oxygen Delivery Method Nasal Cannula Oxygen Flow Rate 4 Narrative Exam Narrative: GEN: Acutely ill-appearing middle-aged male, Alert and oriented x 1-2 HEENT:NC, Face symmetric CHEST: Tachypneic, dyspneic Respiratory excursions symmetric, diminished in the bases bilaterally, significant upper airway noise, crackles bilaterally CV: Tachycardic with regular rhythm, no M/R/G ABD: Increased distention compared with yesterday, decreased tenderness compared with yesterday, no bowel tones heard but difficult to hear over his respiratory sounds, KIRSTEN draining serosanguineous fluid, surgical dressing without any new drainage EXTR: Feet are cool bilaterally with decreased capillary refill, otherwise warm, no C/C/E SKIN: warm and dry, no rash NEURO: Alert and oriented x 1-2, bilateral hand tremors are decreased Objective Labs 12/15/23 04:00 12/15/23 04:00 Labs: Laboratory Results - last 24 hr 12/14/23 12/14/23 12/14/23 08:50 12:15 16:30 WBC RBC Hgb Hct MCV MCH MCHC RDW Plt Count Neut % (Auto) Lymph % (Auto) [place] % (Auto) Eos % (Auto) Baso % (Auto) Neut # (Auto) Lymph # (Auto) [place] # (Auto) Eos # (Auto) Baso # (Auto) ABG Sample Site Left radial ABG pH 7.46 H ABG pCO2 37.7 ABG pO2 72 L ABG HCO3 27 ABG Total CO2 27 ABG O2 Saturation 95 ABG Base Excess 3.0 Reyes Test Positive O2 Delivery Device Cannula Sodium 133 L Potassium 3.7 Chloride 97 L Carbon Dioxide 29 BUN 33 H Creatinine 1.00 Estimated GFR > 60 BUN/Creatinine Ratio 33.0 H Glucose 176 H Calcium 8.5 Phosphorus Magnesium Albumin 3.4 L 12/14/23 12/15/23 21:20 04:00 WBC 15.8 H RBC 5.11 Hgb 14.9 Hct 45.4 MCV 88.8 MCH 29.1 MCHC 32.8 RDW 13.4 Plt Count 291 Neut % (Auto) 86.1 H Lymph % (Auto) 4.0 L [place] % (Auto) 9.8 Eos % (Auto) 0.0 L Baso % (Auto) 0.1 Neut # (Auto) 04393 H Lymph # (Auto) 600 L [place] # (Auto) 1500 H Eos # (Auto) 0 Baso # (Auto) 0 ABG Sample Site ABG pH ABG pCO2 ABG pO2 ABG HCO3 ABG Total CO2 ABG O2 Saturation ABG Base Excess Reyes Test O2 Delivery Device Sodium 131 L 135 L Potassium 3.3 L 3.6 Chloride 95 L 95 L Carbon Dioxide 28 30 BUN 37 H 35 H Creatinine 0.97 1.07 Estimated GFR > 60 > 60 BUN/Creatinine Ratio 38.1 H 32.7 H Glucose 181 H 148 H Calcium 8.5 8.5 Phosphorus 2.5 Magnesium 2.2 Albumin PFSH Medical History Influenza A Anesthesia Gait instability 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 Postoperative day 2 from ileocecectomy for acute ruptured gangrenous appendicitis Continues on Zosyn therapy. MRSA swab was negative. KIRSTEN drainage appears serosanguineous without purulence. Ongoing management per General surgery. 2. Peritonitis Patient had stool and pus noted in his peritoneal space. KIRSTEN drainage appears serosanguineous. We will continue close monitoring. -abdomen distended today, continue to monitor closely, no nausea or vomiting re 3. Sepsis with acute hypoxic respiratory failure, hyperbilirubinema secondary to #1 above Secondary to ruptured appendicitis. He remains tachycardic. Lactate remains within normal limits at 1.7 today. White blood cell count is increased today from 13.5-15.7. -patient tachycardic, hypertensive, tremors, adamantly denies EtOH use in the past. Believe this is combination of prior neurologic tremor and sepsis leading to presentation. Will continue to monitor. Clinically improving after discussion with nursing today. 4. Acute hypoxic respiratory failure Patient is requiring supplemental oxygen to maintain saturations in the 90s. His oxygen need is now up to 4 L from 2 L yesterday. Suspect a significant portion of this is volume overload/pulmonary edema but also possible sepsis and abdominal distension contributing today. 5. Acute on chronic CHFrEF TTE with EF 30-35%, apparently chronic after discussing with chief business development officer yesterday. Recommended outpatient ischemic evaluation given wall motion abnormalities. currently on lasix infusion, can continue today down to 4L O2 -restart lisinopril tomorrow, continue home beta nadeen metoprolol 25 mg daily -continue furosemide infusion for now, consider BID dosing tomorrow if continued improvement. 6. Hyponatremia Sodium is stable, now resolved at 135. 6. Hypertension Blood pressures remain hypertensive. Anticipate diuresis will help with blood pressure control. Will continue monitoring closely. 7. Chronic low back pain with baseline gait impairment and chronic lower extremity weakness Presently holding physical therapy due to his critical illness. reports chronic ongoing Code status Full Prophylaxis If not contraindicated, would recommend initiating DVT prophylaxis. Will defer to General surgery. Disposition Pending PT/OT evaluations, but still likely a few days away from that. Time-Based Coding :: [TOTAL MINUTES] spent with patient and on the chart (including review of chart, obtaining history, exam, reviewing outside data, placing orders, documenting exam and treatment plan, and counseling patient) on [DATE].
--- NOTE | 2023-12-15 14:46 | PM.PN.1 ---
Subjective Subjective Date Patient Seen: 12/15/23 Interval history: Feeling slightly better today. No flatus yet. Exam Vital Signs (past 8 hours): - 12/15/23 07:00 12/15/23 07:00 12/15/23 07:00 Temperature Pulse Rate 105 H Respiratory Rate 26 H Blood Pressure 155/89 H Pulse Oximetry 91 Oxygen Delivery Method Nasal Cannula Oxygen Flow Rate Fraction of Inspired Oxygen 12/15/23 07:30 12/15/23 07:30 12/15/23 07:38 Temperature Pulse Rate 103 H Respiratory Rate 24 Blood Pressure 147/101 H Pulse Oximetry 90 L 93 Oxygen Delivery Method Nasal Cannula Oxygen Flow Rate 4 Fraction of Inspired Oxygen 32 12/15/23 08:00 12/15/23 08:01 12/15/23 08:01 Temperature 98.2 F Pulse Rate 113 H 114 H Respiratory Rate 30 H 26 H Blood Pressure 152/106 H Pulse Oximetry 91 90 L Oxygen Delivery Method Oxygen Flow Rate Fraction of Inspired Oxygen 12/15/23 08:30 12/15/23 08:31 12/15/23 08:31 Temperature Pulse Rate 118 H 119 H Respiratory Rate 29 H 31 H Blood Pressure 140/94 H Pulse Oximetry 91 89 L Oxygen Delivery Method Oxygen Flow Rate Fraction of Inspired Oxygen 12/15/23 09:00 12/15/23 09:00 12/15/23 09:30 Temperature Pulse Rate 112 H 108 H Respiratory Rate 24 29 H Blood Pressure 139/103 H Pulse Oximetry 91 88 L Oxygen Delivery Method Oxygen Flow Rate Fraction of Inspired Oxygen 12/15/23 09:30 12/15/23 10:00 12/15/23 10:00 Temperature Pulse Rate 111 H Respiratory Rate 27 H Blood Pressure 150/97 H 151/98 H Pulse Oximetry 90 L Oxygen Delivery Method Oxygen Flow Rate Fraction of Inspired Oxygen 12/15/23 10:30 12/15/23 10:30 12/15/23 11:00 Temperature Pulse Rate 114 H Respiratory Rate 26 H Blood Pressure 154/90 H 168/100 H Pulse Oximetry 92 Oxygen Delivery Method Oxygen Flow Rate Fraction of Inspired Oxygen 12/15/23 11:00 12/15/23 11:30 12/15/23 11:30 Temperature Pulse Rate 115 H 121 H Respiratory Rate 21 27 H Blood Pressure 143/92 H Pulse Oximetry 92 88 L Oxygen Delivery Method Oxygen Flow Rate Fraction of Inspired Oxygen 12/15/23 12:00 12/15/23 12:00 12/15/23 12:30 Temperature Pulse Rate 119 H 97 H Respiratory Rate 20 22 Blood Pressure 153/110 H Pulse Oximetry 91 94 Oxygen Delivery Method Oxygen Flow Rate Fraction of Inspired Oxygen 12/15/23 12:30 12/15/23 13:00 12/15/23 13:03 Temperature Pulse Rate 102 H 101 H Respiratory Rate 23 24 Blood Pressure 142/100 H Pulse Oximetry 92 89 L Oxygen Delivery Method Oxygen Flow Rate Fraction of Inspired Oxygen 12/15/23 13:03 12/15/23 13:30 Temperature Pulse Rate 100 H Respiratory Rate 19 Blood Pressure 157/93 H Pulse Oximetry 90 L Oxygen Delivery Method Oxygen Flow Rate Fraction of Inspired Oxygen Fraction of Inspired Oxygen 32 SaO2/FiO2 Ratio 290 Oxygen Delivery Method Nasal Cannula Oxygen Flow Rate 4 Narrative Exam Narrative: Abdomen is distended Drain output is serous sanguinous Objective Labs 12/15/23 04:00 12/15/23 04:00 Labs: Laboratory Results - last 24 hr 12/14/23 12/14/23 12/14/23 08:50 12:15 16:30 WBC RBC Hgb Hct MCV MCH MCHC RDW Plt Count Neut % (Auto) Lymph % (Auto) Hughes % (Auto) Eos % (Auto) Baso % (Auto) Neut # (Auto) Lymph # (Auto) Hughes # (Auto) Eos # (Auto) Baso # (Auto) ABG Sample Site Left radial ABG pH 7.46 H ABG pCO2 37.7 ABG pO2 72 L ABG HCO3 27 ABG Total CO2 27 ABG O2 Saturation 95 ABG Base Excess 3.0 Reyes Test Positive O2 Delivery Device Cannula Sodium 133 L Potassium 3.7 Chloride 97 L Carbon Dioxide 29 BUN 33 H Creatinine 1.00 Estimated GFR > 60 BUN/Creatinine Ratio 33.0 H Glucose 176 H Calcium 8.5 Phosphorus Magnesium Albumin 3.4 L 12/14/23 12/15/23 21:20 04:00 WBC 15.8 H RBC 5.11 Hgb 14.9 Hct 45.4 MCV 88.8 MCH 29.1 MCHC 32.8 RDW 13.4 Plt Count 291 Neut % (Auto) 86.1 H Lymph % (Auto) 4.0 L Hughes % (Auto) 9.8 Eos % (Auto) 0.0 L Baso % (Auto) 0.1 Neut # (Auto) 68416 H Lymph # (Auto) 600 L Hughes # (Auto) 1500 H Eos # (Auto) 0 Baso # (Auto) 0 ABG Sample Site ABG pH ABG pCO2 ABG pO2 ABG HCO3 ABG Total CO2 ABG O2 Saturation ABG Base Excess Reyes Test O2 Delivery Device Sodium 131 L 135 L Potassium 3.3 L 3.6 Chloride 95 L 95 L Carbon Dioxide 28 30 BUN 37 H 35 H Creatinine 0.97 1.07 Estimated GFR > 60 > 60 BUN/Creatinine Ratio 38.1 H 32.7 H Glucose 181 H 148 H Calcium 8.5 8.5 Phosphorus 2.5 Magnesium 2.2 Albumin PFSH Medical History Influenza A Anesthesia Gait instability 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 Bleeding from ear 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) Congestive heart failure Coronary artery aneurysm Pure hypercholesterolemia (07/30/16) Hypogonadism in male (04/23/16) Essential hypertension (04/23/16) Surgical History H/O surgical amputation of finger H/O vasectomy Hx of tonsillectomy Family History Father Heart attack Mother Dementia Sister Cancer Social History household members: spouse and family Smoking Status: Never smoker alcohol intake: former substance use type: does not use Assessment & Plan Assessment and plan (1) Postoperative examination: Status: Acute Plan Advance diet once he is passing flatus Time-Based Coding :: [TOTAL MINUTES] spent with patient and on the chart (including review of chart, obtaining history, exam, reviewing outside data, placing orders, documenting exam and treatment plan, and counseling patient) on [DATE].
[2023-12-15] MEDS: ONDANSETRON 4 MG/2 ML INJ IV (14:52)
[2023-12-15] MEDS: TRAZODONE 50 MG TABLET 100 MG PO (20:10)
[2023-12-15] MEDS: HYDROCODONE/ACET 5/325 TABLET 1 TAB PO (20:10)
[2023-12-15] MEDS: CELECOXIB 200 MG CAPSULE PO (20:37)
[2023-12-15] MEDS: LORazepam 2 MG/ML INJ 1 MG IV (21:38)
[2023-12-15] MEDS: HALOPERIDOL 5 MG/ML VIAL IV (22:26)
--- NOTE | 2023-12-15 22:29 | PC.NURSE ---
Addendum entered by Sita Robbins R.N. 12/16/23 05:52: Patient started on heated high flow FiO2 80% at 60L and saturation improved to 95-97%. Confusion continues and occasionally pulls out nasal cannula but is redirectable. Alert to self, , year but told [employer] they were in an RV on a road trip. Addendum entered by Sita Robbins R.N. 12/16/23 02:54: Patient requiring 8L O2 by oximask for saturation of 90-92%. Lung sounds continue to be course and wheezing, audible without auscultation. Used flutter valve and had patient cough. Provider notified of increased oxygen requirements. Increased lasix to 10mg/hr and ABG ordered. CXR has not resulted in reports yet. RT notified of ABG and increased O2. Addendum entered by Sita Robbins R.N. 12/16/23 01:06: Notified provider in change of respiratory status. Patient's lungs had changed to coarse crackles to auscultation and O2 dropped to 90% on 5L by oxymask. RT called for assessment as they had evaluated patient at start of shift, did flutter valve with patient and had him cough, no significant change to oxygen requirements. Provider placed new orders and CXR obtained and medications ordered. Patient currently 91% on 6L by oximask. Original Note: Patient continues with agitation, hallucinations, elevated HR and BP. Given medications per MAR to manage, notified provider of agitation despite medications and new order given for Haldol 5mg IV q6h. Patient on telemetry to monitor for interactions.
[2023-12-16] VITALS (42 sets, daily range): BP systolic 104–170; BP diastolic 74–116; PULSE 90–132; RESP 14–34; TEMP 36.1–37.2; O2SAT 90–97
[2023-12-16] MEDS: MEROPENEM 2 GM in SODIUM CHLORIDE 0.9% 100 ML IV ×3 (00:08→16:21)
[2023-12-16] MEDS: METOPROLOL TARTRATE 5 MG/5 ML INJ IV ×2 (00:08→05:46)
--- NOTE | 2023-12-16 00:54 | DI.RAD.S_ITS ---
PROCEDURE: XR CHEST 1V INDICATIONS: hypoxia TECHNIQUE: One view of the chest was acquired. COMPARISON: [facility], CR, XR CHEST 1V, 12/14/2023, 6:00. FINDINGS: Surgical changes and devices: Overlying monitoring wires. Lungs and pleura: Low lung volumes as seen previously. Retrocardiac and right base opacities, decreased compared to the prior exam. Asymmetric right hemidiaphragm elevation. No acute effusion or pneumothorax. Mediastinum: Stable cardiomediastinal contour without central venous congestion. Bones and chest wall: No suspicious bony lesions. Overlying soft tissues appear unremarkable. IMPRESSION: No acute worsening. Low lung volumes and bibasilar opacities, but actually slightly improved compared to the most recent prior exam. Dictated by: Angy Gonzalez M.D. on 12/16/2023 at 9:05 Approved by: Angy Gonzalez M.D. on 12/16/2023 at 9:06
[2023-12-16] MEDS: ALBUTEROL 2.5 MG/3 ML NEB (ADULT) INH (01:21)
[2023-12-16 06:03] LABS: Add Manual Diff / Slide Review NO; Basophils Absolute Auto 0 /uL (0-100); Basophils Percent Auto 0.2 % (0-2); Eosinophils Absolute Auto 0 /uL (0-450); Eosinophils Percent Auto 0.2 % (2-4); Hematocrit 46.8 % (41-53); Hemoglobin 15.7 g/dL (13.5-17.5); Lymphocytes Absolute Auto 900 /uL (1100-4500); Lymphocytes Percent Auto 6.3 % (25-40); Mean Corpuscular HGB Conc 33.7 % (30-36); Mean Corpuscular Hemoglobin 29.6 PG (26-34); Mean Corpuscular Volume 87.8 fL (80-100); Monocytes Absolute Auto 2000 /uL (0-900); Monocytes Percent Auto 13.4 % (3-14); Neutrophils Absolute Auto 12000 /uL (1500-7000); Neutrophils Percent Auto 79.9 % (50-75); Platelet Count 365 X10^3/uL (150-400); Red Blood Cell Count 5.32 X10^6/uL (4.5-5.9); Red Cell Distribution Width 13.8 % (11.6-14.8)
[2023-12-16 06:13] LABS: Alanine Aminotransferase 22 IU/L (<50); Albumin 3.6 g/dL (3.5-5.0); Albumin Globulin Ratio 1.2 (1.0-2.8); Alkaline Phosphatase 65 U/L (38-126); Aspartate Aminotransferase 33 IU/L (17-59); BUN Creatinine Ratio 40.2 (6-22); Bilirubin Total 1.4 mg/dL (0.2-1.3); Blood Urea Nitrogen 39 mg/dL (9-20); Calcium 8.7 mg/dL (8.4-10.2); Carbon Dioxide 33 mmol/L (22-32); Chloride 93 mmol/L (98-107); Estimated Glomerular Filt Rate > 60 mL/min (>60); Globulin 3.1 g/dL (1.7-4.1); Glucose 151 mg/dL (80-110); HEMOLYSIS < 15 (0-50); Magnesium 2.2 mg/dL (1.6-2.3); Potassium 3.4 mmol/L (3.4-5.1); Sodium 135 mmol/L (137-145); Total Protein 6.7 g/dL (6.3-8.2)
[2023-12-16 06:23] LABS: NT-proBNP (BNP-Adult 18+) 408 pg/mL (<125); Troponin I < 0.012 ng/mL (0.01-0.034)
[2023-12-16] MEDS: ACETAMINOPHEN 325 MG TABLET 650 MG PO (06:44)
[2023-12-16] MEDS: INSULIN LISPRO 100 UNIT/ML 3ML VIAL SUBCUT ×3 (08:12→18:05)
[2023-12-16] MEDS: DULOXETINE 30 MG CAPSULE 60 MG PO (08:13)
[2023-12-16] MEDS: CELECOXIB 200 MG CAPSULE PO ×2 (08:13→21:00)
[2023-12-16] MEDS: lisinopriL 20 MG TABLET PO (08:13)
[2023-12-16] MEDS: ENOXAPARIN 40 MG/0.4 ML SYRINGE SUBCUT (08:13)
[2023-12-16] MEDS: CITALOPRAM 10 MG TABLET 20 MG PO (08:14)
[2023-12-16] MEDS: METOPROLOL ER 25 MG TABLET PO (08:14)
[2023-12-16] MEDS: HYDROCODONE/ACET 5/325 TABLET 1 TAB PO (08:14)
--- NOTE | 2023-12-16 09:37 | DI.CT.S_ITS ---
PROCEDURE: CT ABDOMEN PELVIS W CON INDICATIONS: Abd pain TECHNIQUE: After the administration of intravenous contrast, axial sections acquired from the lung bases to the pubic symphysis. Coronal and sagittal reformats were performed. For radiation dose reduction, the following was used: automated exposure control, adjustment of mA and/or kV according to patient size. COMPARISON: [facility], CT, CT ABDOMEN PELVIS W CON, 12/11/2023, 22:55. FINDINGS: Image quality: Diagnostic. Lower Chest: Bibasilar atelectasis, right greater than left. Minimal right pleural effusion. ABDOMEN: Liver: No solid mass. Gallbladder: Calcified gallstone. No gallbladder wall thickening or other findings of acute cholecystitis. Biliary ducts: No biliary dilation. Pancreas: No ductal dilation. Spleen: Size is within normal limits. Adrenal Glands: No adrenal nodules. Kidneys and Ureters: No hydronephrosis. No solid mass. No complex renal cystic lesion which requires follow up. Stomach and Bowel: Interval appendectomy. Question focal contained perforation versus periappendiceal gas containing abscess measuring approximately 3.6 x 1.6 cm on image 108 of series 2. The small bowel is dilated, measuring up to 4.9 cm. There is gastric distention with an air-fluid level present. The stomach is at least moderately or moderately to severely distended. Findings suggest small bowel obstruction. Severe ileus is also possible. There is a small amount of postsurgical free air. A surgical drain is in place. Peritoneum: Small amount of postsurgical free air. Surgical drain in place. Question contained perforation versus small periappendiceal region gas containing abscess. Ventral Wall: No significant ventral hernia. Ventral vertical abdominal skin radames. Abdominal Nodes: No retroperitoneal or mesenteric adenopathy by size criteria. Vessels: Aorta and inferior vena cava are normal in size. PELVIS: Pelvic Organs: Unremarkable. Bladder: A Gonzales catheter partially decompresses the bladder. No bladder wall thickening. Pelvic Nodes: No enlarged lymph nodes. Miscellaneous: No inguinal hernias are seen. Bones: No aggressive osseous abnormality. Remote lumbar fusion surgery at L4 through S1. IMPRESSION: 1. Interval appendectomy. 2. Question possible small contained perforation versus gas containing periappendiceal bed abscess measuring 3.6 x 1.6 cm. 3. Dilated small bowel and distended stomach. Favor small-bowel obstruction. Also possible is severe ileus. Recommend progress films. 4. Bibasilar atelectasis, right greater than left, minimal right pleural effusion. 5. Cholelithiasis. Dictated by: Freedom Garcia M.D. on 12/16/2023 at 13:00 Approved by: Freedom Garcia M.D. on 12/16/2023 at 13:10
[2023-12-16] MEDS: FUROSEMIDE 100 MG in SODIUM CHLORIDE 0.9% 50 ML 6 MG IV (10:26)
--- NOTE | 2023-12-16 12:31 | P.PN_ITS ---
Subjective Subjective Date Patient Seen: 12/16/23 Time Patient Seen: 12:31 Interval history: CT from this morning shows a very distended air and fluid-filled stomach. There was no evidence of an anastomotic leak or abscess in the abdomen. Exam Vital Signs (past 8 hours): - 12/16/23 04:32 12/16/23 05:00 12/16/23 05:00 Temperature Pulse Rate 112 H Respiratory Rate 24 Blood Pressure 156/95 H Pulse Oximetry 96 95 Oxygen Delivery Method High Flow Nasal Cannula Heated High Flow Oxygen Flow Rate 60 60 Fraction of Inspired Oxygen 80 12/16/23 06:00 12/16/23 06:00 12/16/23 06:03 Temperature Pulse Rate 101 H 101 H Respiratory Rate 26 H 29 H Blood Pressure 162/116 H Pulse Oximetry 96 96 Oxygen Delivery Method Oxygen Flow Rate 60 Fraction of Inspired Oxygen 12/16/23 06:03 12/16/23 07:01 12/16/23 07:01 Temperature Pulse Rate 111 H Respiratory Rate 33 H Blood Pressure 154/107 H 156/115 H Pulse Oximetry 96 Oxygen Delivery Method Oxygen Flow Rate 60 Fraction of Inspired Oxygen 12/16/23 07:07 12/16/23 08:00 12/16/23 08:00 Temperature 98.9 F Pulse Rate 111 H 113 H Respiratory Rate 30 H 24 Blood Pressure Pulse Oximetry 95 97 Oxygen Delivery Method Oxygen Flow Rate Fraction of Inspired Oxygen 12/16/23 08:00 12/16/23 08:00 12/16/23 09:00 Temperature Pulse Rate Respiratory Rate Blood Pressure 159/104 H 161/98 H Pulse Oximetry Oxygen Delivery Method Heated High Flow Oxygen Flow Rate Fraction of Inspired Oxygen 12/16/23 09:00 12/16/23 10:00 12/16/23 10:01 Temperature Pulse Rate 120 H 122 H Respiratory Rate 28 H 28 H Blood Pressure 132/109 H Pulse Oximetry 97 97 Oxygen Delivery Method Oxygen Flow Rate Fraction of Inspired Oxygen 12/16/23 10:01 12/16/23 10:43 12/16/23 11:44 Temperature Pulse Rate 126 H 117 H 116 H Respiratory Rate 29 H 24 24 Blood Pressure 132/109 H 139/88 Pulse Oximetry 96 94 94 Oxygen Delivery Method Oxygen Flow Rate Fraction of Inspired Oxygen Fraction of Inspired Oxygen 80 SaO2/FiO2 Ratio 120 Oxygen Delivery Method Heated High Flow Oxygen Flow Rate 60 Narrative Exam Narrative: Asleep Objective Labs 12/16/23 04:35 12/16/23 04:35 Labs: Laboratory Results - last 24 hr 12/16/23 12/16/23 03:02 04:35 WBC 15.0 H RBC 5.32 Hgb 15.7 Hct 46.8 MCV 87.8 MCH 29.6 MCHC 33.7 RDW 13.8 Plt Count 365 Neut % (Auto) 79.9 H Lymph % (Auto) 6.3 L [place] % (Auto) 13.4 Eos % (Auto) 0.2 L Baso % (Auto) 0.2 Neut # (Auto) 15992 H Lymph # (Auto) 900 L [place] # (Auto) 2000 H Eos # (Auto) 0 Baso # (Auto) 0 ABG pH 7.51 H ABG pCO2 41.9 ABG pO2 66 L ABG HCO3 33 H ABG Total CO2 33 H ABG O2 Saturation 94 L ABG Base Excess 8.9 H Reyes Test Yes, passed O2 Delivery Device Oxymask Oxygen Liter Flow 8 FiO2 % 50 Sodium 135 L Potassium 3.4 Chloride 93 L Carbon Dioxide 33 H BUN 39 H Creatinine 0.97 Estimated GFR > 60 BUN/Creatinine Ratio 40.2 H Glucose 151 H Calcium 8.7 Magnesium 2.2 Total Bilirubin 1.4 H AST 33 ALT 22 Alkaline Phosphatase 65 Troponin I < 0.012 NT-Pro-B Natriuret Pep 408 H Total Protein 6.7 Albumin 3.6 Globulin 3.1 Albumin/Globulin Ratio 1.2 PFSH Medical History Influenza A Anesthesia Gait instability 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 Bleeding from ear 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) Congestive heart failure Coronary artery aneurysm Pure hypercholesterolemia (07/30/16) Hypogonadism in male (04/23/16) Essential hypertension (04/23/16) Surgical History H/O surgical amputation of finger H/O vasectomy Hx of tonsillectomy Family History Father Heart attack Mother Dementia Sister Cancer Social History household members: spouse and family Smoking Status: Never smoker alcohol intake: former substance use type: does not use Assessment & Plan Assessment and plan (1) Postoperative examination: Status: Acute Plan NPO for postoperative ileus If becomes more nauseated can place NG tube for decompression and to help respiratory work Time-Based Coding :: [TOTAL MINUTES] spent with patient and on the chart (including review of chart, obtaining history, exam, reviewing outside data, placing orders, documenting exam and treatment plan, and counseling patient) on [DATE].
[2023-12-16 12:50] LABS: Allen Test for ABG Passed? Positive; Base Excess ABG 8.9 mmol/L (-2-3); Blood Gas Collection Site Right Radial; Delivery System oxymask 8L; HCO3 ABG 33 mmol/L (23-27); Oxygen Saturation ABG 94 % (95-100); PCO2 ABG 41.9 mmHg (35-45); PO2 ABG 66 mmHg (80-100); TCO2 ABG 33 mmol/L (23-27); pH ABG 7.51 (7.35-7.45)
--- NOTE | 2023-12-16 13:13 | CM.DPNOTE ---
DCP Cont Reviewed chart. Patient discussed in multidisciplinary rounds. Patient did not have a good night, patient with confusion and feeling ill. Dr Almanza and surgery working collaboratively. Post op ileus suspected, NG tube for decompression as needed ordered. Anticipate discharge home w/family w/close outpatient follow up. Patient may benefit from HH referral once discharge needs are better known. CM team following clinical course closely. STARLA
--- NOTE | 2023-12-16 13:18 | PM.PN.1 ---
Subjective Subjective Interval history: 68 M admitted with perforated appendicitis. Overnight patient was distended, moved to heated high flow NC. CXR showed improvement in pulmonary edema from last films. CT abdomen showed possible appendiceal bed abscess though quite small. Also distended small bowel, discussed with surgery and is likely ileus, no change in therapy with antibiotics surgeon did not think there was an abscess based on their review of CT. Exam Vital Signs (past 8 hours): - 12/16/23 06:00 12/16/23 06:00 12/16/23 06:03 Temperature Pulse Rate 101 H 101 H Respiratory Rate 26 H 29 H Blood Pressure 162/116 H Pulse Oximetry 96 96 Oxygen Delivery Method Oxygen Flow Rate 60 12/16/23 06:03 12/16/23 07:01 12/16/23 07:01 Temperature Pulse Rate 111 H Respiratory Rate 33 H Blood Pressure 154/107 H 156/115 H Pulse Oximetry 96 Oxygen Delivery Method Oxygen Flow Rate 60 12/16/23 07:07 12/16/23 08:00 12/16/23 08:00 Temperature 98.9 F Pulse Rate 111 H 113 H Respiratory Rate 30 H 24 Blood Pressure Pulse Oximetry 95 97 Oxygen Delivery Method Oxygen Flow Rate 12/16/23 08:00 12/16/23 08:00 12/16/23 09:00 Temperature Pulse Rate Respiratory Rate Blood Pressure 159/104 H 161/98 H Pulse Oximetry Oxygen Delivery Method Heated High Flow Oxygen Flow Rate 12/16/23 09:00 12/16/23 10:00 12/16/23 10:01 Temperature Pulse Rate 120 H 122 H Respiratory Rate 28 H 28 H Blood Pressure 132/109 H Pulse Oximetry 97 97 Oxygen Delivery Method Oxygen Flow Rate 12/16/23 10:01 12/16/23 10:43 12/16/23 11:44 Temperature Pulse Rate 126 H 117 H 116 H Respiratory Rate 29 H 24 24 Blood Pressure 132/109 H 139/88 Pulse Oximetry 96 94 94 Oxygen Delivery Method Oxygen Flow Rate Fraction of Inspired Oxygen 80 SaO2/FiO2 Ratio 120 Oxygen Delivery Method Heated High Flow Oxygen Flow Rate 60 Narrative Exam Narrative: GEN: Acutely ill-appearing middle-aged male, HEENT:NC, Face symmetric CHEST: Tachypneic, dyspneic Respiratory excursions symmetric, diminished in the bases bilaterally, significant upper airway noise, crackles bilaterally CV: Tachycardic with regular rhythm, no M/R/G ABD: Stable distention compared with yesterday, decreased tenderness compared with yesterday, no bowel tones heard but difficult to hear over his respiratory sounds, KIRSTEN draining serosanguineous fluid, surgical dressing without any new drainage EXTR: Feet are cool bilaterally with decreased capillary refill, otherwise warm, no C/C/E SKIN: warm and dry, no rash NEURO: Alert and oriented x 2, bilateral hand tremors are decreased Objective Labs 12/16/23 04:35 12/16/23 04:35 Labs: Laboratory Results - last 24 hr 12/16/23 12/16/23 12/16/23 03:02 03:07 04:35 WBC 15.0 H RBC 5.32 Hgb 15.7 Hct 46.8 MCV 87.8 MCH 29.6 MCHC 33.7 RDW 13.8 Plt Count 365 Neut % (Auto) 79.9 H Lymph % (Auto) 6.3 L Gordon % (Auto) 13.4 Eos % (Auto) 0.2 L Baso % (Auto) 0.2 Neut # (Auto) 83794 H Lymph # (Auto) 900 L Gordon # (Auto) 2000 H Eos # (Auto) 0 Baso # (Auto) 0 ABG Sample Site Cancelled Right radial ABG pH Cancelled 7.51 H ABG pCO2 Cancelled 41.9 ABG pO2 Cancelled 66 L ABG HCO3 Cancelled 33 H ABG Total CO2 Cancelled 33 H ABG O2 Saturation Cancelled 94 L ABG Base Excess Cancelled 8.9 H Reyes Test Cancelled Positive Respiration Rate Cancelled O2 Delivery Device Cancelled oxymask 8l Oxygen Liter Flow Cancelled Mode of Support Cancelled FiO2 % Cancelled 50.0 % Tidal Volume Cancelled Pressure Support Cancelled PEEP or CPAP Cancelled Sodium 135 L Potassium 3.4 Chloride 93 L Carbon Dioxide 33 H BUN 39 H Creatinine 0.97 Estimated GFR > 60 BUN/Creatinine Ratio 40.2 H Glucose 151 H Calcium 8.7 Magnesium 2.2 Total Bilirubin 1.4 H AST 33 ALT 22 Alkaline Phosphatase 65 Troponin I < 0.012 NT-Pro-B Natriuret Pep 408 H Total Protein 6.7 Albumin 3.6 Globulin 3.1 Albumin/Globulin Ratio 1.2 PFSH Medical History Influenza A Anesthesia Gait instability 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 Postoperative day 2 from ileocecectomy for acute ruptured gangrenous appendicitis, complicated by possible intra-abdominal abscess and post operative ileus Continues on carbapenem therapy. MRSA swab was negative. KIRSTEN drainage appears serosanguineous without purulence. Ongoing management per General surgery. - surgeon recommended no changes in antibiotic therapy with CT read, surgeon did not think there was an abscess on CT - NG tube if worsening hypoxemia or nausea/vomiting recommended 2. Peritonitis Patient had stool and pus noted in his peritoneal space. KIRSTEN drainage appears serosanguineous. We will continue close monitoring. -abdomen distended today. CT ordered given worsening hypoxemia, further discussion above. Decreased diet to clears. If further nausea, distension, etc make NPO. 3. Sepsis with acute hypoxic respiratory failure, hyperbilirubinema secondary to #1 above Secondary to ruptured appendicitis. He remains tachycardic. Lactate remains within normal limits at 1.7 today. White blood cell count is stable today at 15. -patient tachycardic, hypertensive, tremors, adamantly denies EtOH use in the past. -likely due in part now to combination of abdominal distension, ileus -meropenem to continue 4. Acute hypoxic respiratory failure Patient is requiring supplemental oxygen to maintain saturations in the 90s. Suspect a portion of this is volume overload/pulmonary edema but also possible sepsis and abdominal distension contributing today. Will stop furosemide drip with improved CXR appearance with regard to fluid overload. Change to daily furosemide. 5. Acute on chronic CHFrEF TTE with EF 30-35%, apparently chronic after discussing with polygraph operator yesterday. Recommended outpatient ischemic evaluation given wall motion abnormalities. currently on lasix infusion, will stop with improvement in CXR with regard to fluid overload. -restart lisinopril, continue home beta nadeen metoprolol 25 mg daily -change from furosemide infusion to daily furosemide 40 mg IV. 6. Hyponatremia Sodium is stable, now resolved at 135. 6. Hypertension Will continue monitoring closely. Improved with diuresis and resumption of home medications. 7. Chronic low back pain with baseline gait impairment and chronic lower extremity weakness Presently holding physical therapy due to his critical illness. reports chronic ongoing Code status Full Prophylaxis If not contraindicated, would recommend initiating DVT prophylaxis. Will defer to General surgery. Disposition Home vs SNF, but still likely a few days away from PT/OT at this time. Time-Based Coding :: [TOTAL MINUTES] spent with patient and on the chart (including review of chart, obtaining history, exam, reviewing outside data, placing orders, documenting exam and treatment plan, and counseling patient) on [DATE].
--- NOTE | 2023-12-16 16:30 | PC.NURSE ---
Day Shift Note Patient restless and impulsive at start of shift, confused, reporting he wants to go home, unable to accurately state where he is. Pt is redirectable, re-oriented to place and situation. Mentation improved by end of shift, oriented x3 but is forgetful at times about plan of care, fatigued. On heated HFNC 60L and 50% FiO2 at this time, SpO2 in the 93-94% range. Denies pain this afternoon. Intermittent nausea this morning, abdomen is firm and distended, denies flatus, no BTs. Midline incision open to air with radames in place, edges well approximated with no erythema. KIRSTEN drain in place and compressed with serosanguinous fluid. Pt to CT scan with RT and RN, tolerated well. Dr. Mancuso reviewed scan and ordered pt NPO status and order received to place NG tube to LIS if patient has any nausea and/or vomiting. Gonzales catheter in place draining clear yellow urine. Lasix gtt d/c'd - see emar. Pt assisted to log roll and sit up at side of bed, reported initial dizziness but resolved quickly, BP 109/80, HR 120s sinus. Pt was able to stand 2 person assist at side of bed 3 times, weak. Unable to step and transfer to chair due to weakness, assisted back in bed. Call light within reach. Bed alarm is on.
--- NOTE | 2023-12-16 19:24 | PM.CALLCOV.1 ---
Call Coverage Note Note Date of Patient Contact: 12/16/23 Time of Patient Contact: 19:24 Narrative of Care Provided: Significant gastric dilation, persistent leukocytosis S/p ileocecectomy with salvador stool in abdomen. CT scan has fluid and gas filled area associated with anastomosis size should respond to antibiotics. Have IR review tomorrow for aspiration vs drain. continue IV antibiotics. Place NGT and HOB elevated 30 degrees at all times.
--- NOTE | 2023-12-16 20:26 | DI.RAD.S_ITS ---
PROCEDURE: XR CHEST 1V INDICATIONS: NGT placement TECHNIQUE: One view of the chest was acquired. COMPARISON: [facility], CT, CT ABDOMEN PELVIS W CON, 12/16/2023, 11:26. [facility], CR, XR CHEST 1V, 12/16/2023, 0:55. [facility], CR, XR CHEST 1V, 12/14/2023, 6:00. [facility], CR, XR CHEST 1V, 12/11/2023, 23:00. [facility], CR, XR CHEST 2V, 02/03/2022, 23:28. FINDINGS: Surgical changes and devices: Enteric tube distal tip and side-port at the level of the distal gastric body. Lungs and pleura: Streaky bilateral lower lobe opacification. Low lung volumes. No pleural effusions or pneumothorax. Mediastinum: Mediastinal contours appear normal. Heart size is normal. Right diaphragmatic eventration. Bones and chest wall: No suspicious bony lesions. Overlying soft tissues appear unremarkable. IMPRESSION: 1. Findings that can be seen with aspiration pneumonitis versus pneumonia. 2. Enteric tube tip in appropriate position. Dictated by: Maico Hernandes M.D. on 12/16/2023 at 20:44 Approved by: Maico Hernandes M.D. on 12/16/2023 at 20:46
--- NOTE | 2023-12-16 20:46 | PC.NURSE ---
Patient's abdomen distended, firm, bowel sounds absent x 4 quadrants, NGT inserted with 1500 ml of bile drained, 1 view CXR obtained, surgery concrete bucket loader updated.
[2023-12-16] MEDS: FLUCONAZOLE 400 MG/200 ML PIGGYBACK 100 MG IV (20:59)
[2023-12-16] MEDS: TRAZODONE 50 MG TABLET 100 MG PO (21:00)
[2023-12-16] MEDS: OXYCODONE IR 10 MG TABLET PO (21:10)
[2023-12-17] VITALS (30 sets, daily range): BP systolic 118–150; BP diastolic 62–94; PULSE 102–128; RESP 15–32; TEMP 36.1–36.3; O2SAT 90–97
[2023-12-17] MEDS: MEROPENEM 2 GM in SODIUM CHLORIDE 0.9% 100 ML IV ×3 (00:24→18:11)
[2023-12-17] MEDS: LORazepam 2 MG/ML INJ 1 MG IV (00:25)
[2023-12-17 05:37] LABS: Add Manual Diff / Slide Review NO; Basophils Absolute Auto 0 /uL (0-100); Basophils Percent Auto 0.2 % (0-2); Eosinophils Absolute Auto 100 /uL (0-450); Hematocrit 45.3 % (41-53); Hemoglobin 14.9 g/dL (13.5-17.5); Lymphocytes Absolute Auto 800 /uL (1100-4500); Mean Corpuscular HGB Conc 32.8 % (30-36); Mean Corpuscular Hemoglobin 28.9 PG (26-34); Mean Corpuscular Volume 88.1 fL (80-100); Monocytes Absolute Auto 1700 /uL (0-900); Monocytes Percent Auto 14.5 % (3-14); Neutrophils Absolute Auto 9200 /uL (1500-7000); Neutrophils Percent Auto 77.3 % (50-75); Platelet Count 318 X10^3/uL (150-400); Red Blood Cell Count 5.14 X10^6/uL (4.5-5.9); Red Cell Distribution Width 13.6 % (11.6-14.8); White Blood Cell Count 11.9 X10^3/uL (4.5-11.0)
[2023-12-17 06:02] LABS: Alanine Aminotransferase 24 IU/L (<50); Albumin 3.1 g/dL (3.5-5.0); Albumin Globulin Ratio 1.1 (1.0-2.8); Alkaline Phosphatase 57 U/L (38-126); Aspartate Aminotransferase 35 IU/L (17-59); BUN Creatinine Ratio 37.1 (6-22); Bilirubin Total 1.1 mg/dL (0.2-1.3); Blood Urea Nitrogen 39 mg/dL (9-20); Calcium 8.1 mg/dL (8.4-10.2); Chloride 89 mmol/L (98-107); Estimated Glomerular Filt Rate > 60 mL/min (>60); Globulin 2.7 g/dL (1.7-4.1); Glucose 127 mg/dL (80-110); HEMOLYSIS < 15 (0-50); Magnesium 2.3 mg/dL (1.6-2.3); Potassium 3.1 mmol/L (3.4-5.1); Sodium 135 mmol/L (137-145); Total Protein 5.8 g/dL (6.3-8.2)
[2023-12-17 06:21] LABS: Carbon Dioxide 39 mmol/L (22-32)
[2023-12-17] MEDS: CITALOPRAM 10 MG TABLET 20 MG PO (10:02)
[2023-12-17] MEDS: METOPROLOL ER 25 MG TABLET PO (10:02)
[2023-12-17] MEDS: POTASSIUM CHLORIDE 20 MEQ TAB 40 MEQ PO ×2 (10:03→16:16)
[2023-12-17] MEDS: lisinopriL 20 MG TABLET PO (10:03)
[2023-12-17] MEDS: CELECOXIB 200 MG CAPSULE PO ×2 (10:03→20:58)
[2023-12-17] MEDS: DULOXETINE 30 MG CAPSULE 60 MG PO (10:03)
[2023-12-17] MEDS: ENOXAPARIN 40 MG/0.4 ML SYRINGE SUBCUT (10:04)
[2023-12-17] MEDS: FUROSEMIDE 40 MG/4 ML VIAL IV (10:04)
--- NOTE | 2023-12-17 10:15 | DIET.CONS ---
Dietary Consultation Note Admission Date: 12/12/2023 00:49 Assessment: 68 y M admitted for appendicitis, s/p ileocecectomy. Pt developed post-op ileus and is now NPO w/ NGT with drainage. Pt was NPO or liquids for 5 days, on day 6 and currently NPO. Was on full liquids for 2-3 days but inadequate intake on fulls to meet his nutrition needs -one recorded po intake of 25%. Consider starting TPN if diet unlikely to be able to be advanced - discussed in team rounds. Ht: 190.5 cm Wt: 108.862 kg BMI: 29.9 UBW: 103.929 kg on 08/28/23 Last BM: 12/09/23 (12/12/23 12:11) MNA: 13 Mook Score: 17 Diet: 12/16/23 13:42 NPO Diet Diet Modifications: NPO Type: NPO except for Meds Nutrition Percent Meal Consumed pt is NPO 12/16/23 18:00 Percent Meal Consumed refused breakfast 12/16/23 09:50 Labs: RBC 5.14 X10^6/uL (4.5-5.9) 12/17/23 04:20 Hgb 14.9 g/dL (13.5-17.5) 12/17/23 04:20 Hct 45.3 % (41-53) 12/17/23 04:20 Creatinine 1.05 mg/dL (0.66-1.25) 12/17/23 04:20 Lactate 1.7 mmol/L (0.7-2.1) 12/14/23 12:15 NT-Pro-B Natriuret Pep 408 pg/mL (<125) H 12/16/23 04:35 Nutrition Diagnosis: Inadequate oral intake r/t alterations in GI tract and increased nutrient needs (energy-protein) aeb 5 days of NPO or liquids diet with estimated energy intake <50%, post-op ileus and current NPO status, and sepsis Interventions: -Recc consider starting continuous TPN if diet unlikely to be able to be advanced: If TPN is started, can be initiated at 21 mL/hr of Clinimix 5/20 for the first 24 hours. Pt at risk for refeeding. If TPN started, recc monitoring K+, Mg, and phos for first 3 days of TPN and replete per protocol. Monitoring/Evaluations: Will f/u tomorrow Electronically Signed by: Taya Crowley 12/17/23 10:15 Clinical Dietitian [address] [id number]
[2023-12-17] MEDS: fentaNYL 25 MCG/PATCH TOP (10:33)
[2023-12-17] MEDS: INSULIN LISPRO 100 UNIT/ML 3ML VIAL SUBCUT ×2 (12:38→18:27)
--- NOTE | 2023-12-17 14:14 | PM.PN.1 ---
Subjective Subjective Date Patient Seen: 12/17/23 Time Patient Seen: 14:14 Interval history: Feeling better with NG tube decompression. Still no flatus. White count downtrending. Exam Vital Signs (past 8 hours): - 12/17/23 07:00 12/17/23 07:00 12/17/23 07:50 Pulse Rate 109 H 108 H Respiratory Rate 22 20 Blood Pressure 146/84 H 146/84 H Pulse Oximetry 94 94 Oxygen Delivery Method 12/17/23 08:00 12/17/23 08:00 12/17/23 08:00 Pulse Rate 109 H Respiratory Rate 21 Blood Pressure 129/89 Pulse Oximetry 94 Oxygen Delivery Method Heated High Flow 12/17/23 09:00 12/17/23 09:00 12/17/23 10:00 Pulse Rate 107 H 109 H Respiratory Rate 18 20 Blood Pressure 134/80 Pulse Oximetry 93 95 Oxygen Delivery Method 12/17/23 10:00 12/17/23 11:03 12/17/23 11:03 Pulse Rate 122 H Respiratory Rate 23 Blood Pressure 128/91 H 128/92 H Pulse Oximetry 96 Oxygen Delivery Method 12/17/23 11:16 12/17/23 11:43 12/17/23 11:43 Pulse Rate 115 H 124 H Respiratory Rate 24 25 H Blood Pressure 128/92 H 148/94 H Pulse Oximetry 94 97 Oxygen Delivery Method 12/17/23 12:00 12/17/23 12:00 12/17/23 12:00 Pulse Rate 115 H Respiratory Rate 22 Blood Pressure 131/79 Pulse Oximetry 94 Oxygen Delivery Method Heated High Flow 12/17/23 13:00 12/17/23 13:00 12/17/23 14:00 Pulse Rate 109 H 121 H Respiratory Rate 21 21 Blood Pressure 125/82 Pulse Oximetry 96 95 Oxygen Delivery Method 12/17/23 14:01 12/17/23 14:01 Pulse Rate 118 H Respiratory Rate 22 Blood Pressure 132/62 Pulse Oximetry 94 Oxygen Delivery Method Fraction of Inspired Oxygen 80 SaO2/FiO2 Ratio 120 Oxygen Delivery Method Heated High Flow Oxygen Flow Rate 60 Narrative Exam Narrative: Abdomen distended without peritonitis Incision is clean and dry Drain output is serosanguineous Objective Labs 12/17/23 04:20 12/17/23 04:20 Labs: Laboratory Results - last 24 hr 12/17/23 04:20 WBC 11.9 H RBC 5.14 Hgb 14.9 Hct 45.3 MCV 88.1 MCH 28.9 MCHC 32.8 RDW 13.6 Plt Count 318 Neut % (Auto) 77.3 H Lymph % (Auto) 7.0 L [place] % (Auto) 14.5 H Eos % (Auto) 1.0 L Baso % (Auto) 0.2 Neut # (Auto) 9200 H Lymph # (Auto) 800 L [place] # (Auto) 1700 H Eos # (Auto) 100 Baso # (Auto) 0 Sodium 135 L Potassium 3.1 L Chloride 89 L Carbon Dioxide 39 H BUN 39 H Creatinine 1.05 Estimated GFR > 60 BUN/Creatinine Ratio 37.1 H Glucose 127 H Calcium 8.1 L Magnesium 2.3 Total Bilirubin 1.1 AST 35 ALT 24 Alkaline Phosphatase 57 Total Protein 5.8 L Albumin 3.1 L Globulin 2.7 Albumin/Globulin Ratio 1.1 PFSH Medical History Influenza A Anesthesia Gait instability 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 Bleeding from ear 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 Time-Based Coding :: [TOTAL MINUTES] spent with patient and on the chart (including review of chart, obtaining history, exam, reviewing outside data, placing orders, documenting exam and treatment plan, and counseling patient) on [DATE].
--- NOTE | 2023-12-17 14:28 | P.PN_ITS ---
Subjective Subjective Date Patient Seen: 12/17/23 Time Patient Seen: 11:00 Interval history: Marked improvement in mental clarity. High output NGT. Exam Vital Signs (past 8 hours): - 12/17/23 07:00 12/17/23 07:00 12/17/23 07:50 Pulse Rate 109 H 108 H Respiratory Rate 22 20 Blood Pressure 146/84 H 146/84 H Pulse Oximetry 94 94 Oxygen Delivery Method 12/17/23 08:00 12/17/23 08:00 12/17/23 08:00 Pulse Rate 109 H Respiratory Rate 21 Blood Pressure 129/89 Pulse Oximetry 94 Oxygen Delivery Method Heated High Flow 12/17/23 09:00 12/17/23 09:00 12/17/23 10:00 Pulse Rate 107 H 109 H Respiratory Rate 18 20 Blood Pressure 134/80 Pulse Oximetry 93 95 Oxygen Delivery Method 12/17/23 10:00 12/17/23 11:03 12/17/23 11:03 Pulse Rate 122 H Respiratory Rate 23 Blood Pressure 128/91 H 128/92 H Pulse Oximetry 96 Oxygen Delivery Method 12/17/23 11:16 12/17/23 11:43 12/17/23 11:43 Pulse Rate 115 H 124 H Respiratory Rate 24 25 H Blood Pressure 128/92 H 148/94 H Pulse Oximetry 94 97 Oxygen Delivery Method 12/17/23 12:00 12/17/23 12:00 12/17/23 12:00 Pulse Rate 115 H Respiratory Rate 22 Blood Pressure 131/79 Pulse Oximetry 94 Oxygen Delivery Method Heated High Flow 12/17/23 13:00 12/17/23 13:00 12/17/23 14:00 Pulse Rate 109 H 121 H Respiratory Rate 21 21 Blood Pressure 125/82 Pulse Oximetry 96 95 Oxygen Delivery Method 12/17/23 14:01 12/17/23 14:01 Pulse Rate 118 H Respiratory Rate 22 Blood Pressure 132/62 Pulse Oximetry 94 Oxygen Delivery Method Fraction of Inspired Oxygen 80 SaO2/FiO2 Ratio 120 Oxygen Delivery Method Heated High Flow Oxygen Flow Rate 60 Objective Labs 12/17/23 04:20 12/17/23 04:20 Labs: Laboratory Results - last 24 hr 12/17/23 04:20 WBC 11.9 H RBC 5.14 Hgb 14.9 Hct 45.3 MCV 88.1 MCH 28.9 MCHC 32.8 RDW 13.6 Plt Count 318 Neut % (Auto) 77.3 H Lymph % (Auto) 7.0 L [place] % (Auto) 14.5 H Eos % (Auto) 1.0 L Baso % (Auto) 0.2 Neut # (Auto) 9200 H Lymph # (Auto) 800 L [place] # (Auto) 1700 H Eos # (Auto) 100 Baso # (Auto) 0 Sodium 135 L Potassium 3.1 L Chloride 89 L Carbon Dioxide 39 H BUN 39 H Creatinine 1.05 Estimated GFR > 60 BUN/Creatinine Ratio 37.1 H Glucose 127 H Calcium 8.1 L Magnesium 2.3 Total Bilirubin 1.1 AST 35 ALT 24 Alkaline Phosphatase 57 Total Protein 5.8 L Albumin 3.1 L Globulin 2.7 Albumin/Globulin Ratio 1.1 PFSH Medical History Influenza A Anesthesia Gait instability 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 Bleeding from ear 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) Congestive heart failure Coronary artery aneurysm Pure hypercholesterolemia (07/30/16) Hypogonadism in male (04/23/16) Essential hypertension (04/23/16) Surgical History H/O surgical amputation of finger H/O vasectomy Hx of tonsillectomy Family History Father Heart attack Mother Dementia Sister Cancer Social History household members: spouse and family Smoking Status: Never smoker alcohol intake: former substance use type: does not use Assessment & Plan Post-op Postoperative Procedures: Procedures Operation Date: 12/12/23 15:30 Actual Procedure Side Surgeon p Laparotomy Ileocecectomy Jorge Polanco MD Postoperative status: post-op ileus Postoperative status narrative: NGT decompression and addition of fluconazole has resulted in decreased confusion, decreased leukocytosis, improved comfort. IR determined no drainable collection regarding abdomen Postoperative plan narrative: continue NGT and bowel rest. reevaluate in am Time Spent With Patient Time with patient: less than 15 minutes
--- NOTE | 2023-12-17 15:09 | PM.PN.1 ---
Subjective Subjective Interval history: 68 M admitted with perforated appendicitis. NG tube placed yesterday. Appreciate surgical management yesterday. approx 3L out via NG tube since placement. He feels improved without reported pain. Discussed with surgeon, given persistent tachycardia trial fentanyl patch for pain control at this time. Patient is clinically improved. WBC improved today, surgeon did start fluconazole yesterday. Will start TPN given unclear how long patient will be NPO at this point. Exam Vital Signs (past 8 hours): - 12/17/23 07:50 12/17/23 08:00 12/17/23 08:00 Pulse Rate 108 H 109 H Respiratory Rate 20 21 Blood Pressure 146/84 H 129/89 Pulse Oximetry 94 94 Oxygen Delivery Method 12/17/23 08:00 12/17/23 09:00 12/17/23 09:00 Pulse Rate 107 H Respiratory Rate 18 Blood Pressure 134/80 Pulse Oximetry 93 Oxygen Delivery Method Heated High Flow 12/17/23 10:00 12/17/23 10:00 12/17/23 11:03 Pulse Rate 109 H 122 H Respiratory Rate 20 23 Blood Pressure 128/91 H Pulse Oximetry 95 96 Oxygen Delivery Method 12/17/23 11:03 12/17/23 11:16 12/17/23 11:43 Pulse Rate 115 H Respiratory Rate 24 Blood Pressure 128/92 H 128/92 H 148/94 H Pulse Oximetry 94 Oxygen Delivery Method 12/17/23 11:43 12/17/23 12:00 12/17/23 12:00 Pulse Rate 124 H 115 H Respiratory Rate 25 H 22 Blood Pressure 131/79 Pulse Oximetry 97 94 Oxygen Delivery Method 12/17/23 12:00 12/17/23 13:00 12/17/23 13:00 Pulse Rate 109 H Respiratory Rate 21 Blood Pressure 125/82 Pulse Oximetry 96 Oxygen Delivery Method Heated High Flow 12/17/23 14:00 12/17/23 14:01 12/17/23 14:01 Pulse Rate 121 H 118 H Respiratory Rate 21 22 Blood Pressure 132/62 Pulse Oximetry 95 94 Oxygen Delivery Method 12/17/23 14:54 Pulse Rate 118 H Respiratory Rate 24 Blood Pressure 132/62 Pulse Oximetry 94 Oxygen Delivery Method Fraction of Inspired Oxygen 80 SaO2/FiO2 Ratio 120 Oxygen Delivery Method Heated High Flow Oxygen Flow Rate 60 Narrative Exam Narrative: GEN: Acutely ill-appearing middle-aged male, HEENT:NC, Face symmetric CHEST: Tachypneic, dyspneic Respiratory excursions symmetric, diminished in the bases bilaterally, significant upper airway noise, crackles bilaterally CV: Tachycardic with regular rhythm, no M/R/G ABD: S NT ND, KIRSTEN draining serosanguineous fluid EXTR: Feet are cool bilaterally with decreased capillary refill, otherwise warm, no C/C/E SKIN: warm and dry, no rash NEURO: Alert and oriented x3, bilateral hand tremors are decreased Objective Labs 12/17/23 04:20 12/17/23 04:20 Labs: Laboratory Results - last 24 hr 12/17/23 04:20 WBC 11.9 H RBC 5.14 Hgb 14.9 Hct 45.3 MCV 88.1 MCH 28.9 MCHC 32.8 RDW 13.6 Plt Count 318 Neut % (Auto) 77.3 H Lymph % (Auto) 7.0 L [place] % (Auto) 14.5 H Eos % (Auto) 1.0 L Baso % (Auto) 0.2 Neut # (Auto) 9200 H Lymph # (Auto) 800 L [place] # (Auto) 1700 H Eos # (Auto) 100 Baso # (Auto) 0 Sodium 135 L Potassium 3.1 L Chloride 89 L Carbon Dioxide 39 H BUN 39 H Creatinine 1.05 Estimated GFR > 60 BUN/Creatinine Ratio 37.1 H Glucose 127 H Calcium 8.1 L Magnesium 2.3 Total Bilirubin 1.1 AST 35 ALT 24 Alkaline Phosphatase 57 Total Protein 5.8 L Albumin 3.1 L Globulin 2.7 Albumin/Globulin Ratio 1.1 PFSH Medical History Influenza A Anesthesia Gait instability 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 Postoperative day 2 from ileocecectomy for acute ruptured gangrenous appendicitis, complicated by possible intra-abdominal abscess and post operative ileus Continues on carbapenem therapy. Fluconazole added 12/15 by surgeon with improvement in WBC today. MRSA swab was negative. KIRSTEN drainage appears serosanguineous without purulence. Ongoing management per General surgery. - Dr. Mancuso did not feel there to be an abscess, Dr. Spears discussed with IR for possible abscess drainage, but per IR there was no window. - NG tube plaved 12/16 - PICC line and TPN ordered today. 2. Sepsis with acute hypoxic respiratory failure, hyperbilirubinema secondary to #1 above Secondary to ruptured appendicitis. He remains tachycardic. Lactate remains within normal limits at 1.7 today. White blood cell count is stable today at 15. -patient tachycardic, hypertensive, tremors, adamantly denies EtOH use in the past. -likely due in part now to combination of abdominal distension, ileus -meropenem to continue along with fluconazole added by surgery 3. Acute hypoxic respiratory failure Patient is requiring supplemental oxygen to maintain saturations in the 90s. Suspect a portion of this is volume overload/pulmonary edema but also possible sepsis and abdominal distension contributing today. Stopped furosemide drip with improved CXR appearance with regard to fluid overload. Changed to daily furosemide on 12/16. 4. Acute on chronic CHFrEF TTE with EF 30-35%, apparently chronic after discussing with parts counter representative yesterday. Recommended outpatient ischemic evaluation given wall motion abnormalities. currently on lasix infusion, will stop with improvement in CXR with regard to fluid overload. -restart lisinopril, continue home beta nadeen metoprolol 25 mg daily -changed from furosemide infusion to daily furosemide 40 mg IV. Appears more euvolemic but still on high amounts of oxygen today. 5. Hyponatremia Sodium is stable, now resolved at 135. 6. Hypertension Will continue monitoring closely. Improved with diuresis and resumption of home medications. 7. Chronic low back pain with baseline gait impairment and chronic lower extremity weakness Presently holding physical therapy due to his critical illness. reports chronic ongoing Code status Full Prophylaxis If not contraindicated, would recommend initiating DVT prophylaxis. Will defer to General surgery. Disposition Home vs SNF, but still likely a few days away from PT/OT at this time. Discussed with surgeon as above to formulate the above assessment and plan . Time-Based Coding :: [TOTAL MINUTES] spent with patient and on the chart (including review of chart, obtaining history, exam, reviewing outside data, placing orders, documenting exam and treatment plan, and counseling patient) on [DATE].
[2023-12-17] MEDS: BENZOCAINE/MENTHOL 1 LOZ PKT 1 EACH PO (16:16)
--- NOTE | 2023-12-17 17:25 | DI.RAD.S_ITS ---
PROCEDURE: XR CHEST FOR PICC 1V COMPARISON: [facility], , XR CHEST 1V, 12/16/2023, 20:26. INDICATIONS: picc placement FINDINGS: Left-sided PICC is seen with tip projecting over the region of the lower superior vena cava. Low lung volumes bilaterally. Enteric tube bianca projecting to the ses the diaphragm. IMPRESSION: Left-sided PICC in satisfactory position. Approved by: Matias Torres M.D. on 12/17/2023 at 17:59
[2023-12-17] MEDS: AA 5 %/CALCIUM/LYTES/DEXT 20 % 500 ML with MULTIVITAMIN 10 ML, TRACE ELEMENTS 1 ML, THI... 21.333 ML IV (18:11)
[2023-12-17] MEDS: FAT EMULSIONS 50 GM/250 ML EMULSION IV (18:12)
--- NOTE | 2023-12-17 18:58 | PC.NURSE ---
Day Shift Note Patient alert and oriented x3, forgetful. Attempted to get OOB today, logrolled and sat at side of bed, stood once with walker, 2 person assist. Pt reported feeling very weak and that he could not stand any longer. SpO2 above 90% but HR up to 140s sinus with this activity. Pt mechanical lifted to chair after PICC line pt, tolerated well and reports feels comfortable. Ice chips ok per Dr. Spears, ice chip amounts already subtracted from NG tube output totals. Fentanyl patch placed to left arm for pain control, pt reports effective. Abdomen soft, no flatus, no BTs. Heated HFNC 25L and 35% FiO2 with SpO2 92-94%. Call light within reach, using appropriately to make needs known.
[2023-12-17] MEDS: FLUCONAZOLE 400 MG/200 ML PIGGYBACK 100 MG IV (20:58)
[2023-12-17] MEDS: GABAPENTIN 300 MG CAPSULE PO (20:58)
[2023-12-17] MEDS: TRAZODONE 50 MG TABLET 100 MG PO (20:58)
[2023-12-18] VITALS (15 sets, daily range): BP systolic 105–143; BP diastolic 71–90; PULSE 89–109; RESP 11–23; TEMP 35.9–36.8; O2SAT 91–100
[2023-12-18] MEDS: MEROPENEM 2 GM in SODIUM CHLORIDE 0.9% 100 ML IV ×3 (02:19→17:05)
--- NOTE | 2023-12-18 03:41 | RT ---
Took pt off [facility] at 2100 and placed him on HF on the wall at 6L pt sat 94%. [facility] is on standby but pt is stable and comfortable at this time.
[2023-12-18 05:50] LABS: Add Manual Diff / Slide Review NO; Basophils Absolute Auto 100 /uL (0-100); Basophils Percent Auto 0.5 % (0-2); Eosinophils Absolute Auto 300 /uL (0-450); Eosinophils Percent Auto 2.4 % (2-4); Hematocrit 45.9 % (41-53); Hemoglobin 15.1 g/dL (13.5-17.5); Lymphocytes Absolute Auto 1200 /uL (1100-4500); Lymphocytes Percent Auto 8.5 % (25-40); Mean Corpuscular HGB Conc 32.9 % (30-36); Mean Corpuscular Hemoglobin 28.9 PG (26-34); Mean Corpuscular Volume 87.9 fL (80-100); Monocytes Absolute Auto 1100 /uL (0-900); Monocytes Percent Auto 7.6 % (3-14); Neutrophils Absolute Auto 11400 /uL (1500-7000); Platelet Count 367 X10^3/uL (150-400); Red Blood Cell Count 5.22 X10^6/uL (4.5-5.9); Red Cell Distribution Width 13.6 % (11.6-14.8)
[2023-12-18 06:01] LABS: Alanine Aminotransferase 24 IU/L (<50); Albumin 2.6 g/dL (3.5-5.0); Alkaline Phosphatase 49 U/L (38-126); Aspartate Aminotransferase 35 IU/L (17-59); BUN Creatinine Ratio 46.9 (6-22); Bilirubin Total 0.5 mg/dL (0.2-1.3); Blood Urea Nitrogen 30 mg/dL (9-20); Calcium 6.6 mg/dL (8.4-10.2); Carbon Dioxide 38 mmol/L (22-32); Chloride 97 mmol/L (98-107); Estimated Glomerular Filt Rate > 60 mL/min (>60); Globulin 2.6 g/dL (1.7-4.1); Glucose 124 mg/dL (80-110); HEMOLYSIS < 15 (0-50); Magnesium 2.1 mg/dL (1.6-2.3); Sodium 138 mmol/L (137-145); Total Protein 5.2 g/dL (6.3-8.2)
[2023-12-18 06:16] LABS: Potassium 2.4 mmol/L (3.4-5.1)
--- NOTE | 2023-12-18 06:20 | PC.NURSE ---
Patient's K 2.4, surgery quotation checker updated, order for 40 meq K-rider received.
[2023-12-18] MEDS: POTASSIUM CHLORIDE IN WATER 10 MEQ/100 ML PIGGYBACK 100 MEQ IV ×6 (06:46→13:32)
[2023-12-18] MEDS: METOPROLOL ER 25 MG TABLET PO (08:27)
[2023-12-18] MEDS: ENOXAPARIN 40 MG/0.4 ML SYRINGE SUBCUT (08:27)
[2023-12-18] MEDS: CITALOPRAM 10 MG TABLET 20 MG PO (08:28)
[2023-12-18] MEDS: lisinopriL 20 MG TABLET PO (08:28)
[2023-12-18] MEDS: DULOXETINE 30 MG CAPSULE 60 MG PO (08:28)
[2023-12-18] MEDS: FUROSEMIDE 40 MG/4 ML VIAL IV (08:28)
[2023-12-18] MEDS: CELECOXIB 200 MG CAPSULE PO ×2 (08:28→21:06)
[2023-12-18 10:59] LABS: Phosphorous 2.3 mg/dL (2.3-3.7)
[2023-12-18] MEDS: INSULIN LISPRO 100 UNIT/ML 3ML VIAL SUBCUT (12:09)
--- NOTE | 2023-12-18 12:21 | DIET.PN1 ---
Dietary Progress Note Assessment: K+ low. Discussed w/ pharmacy. Replete per protocol and maintain TPN at 21 mL/hr for another 24 hours. Will obtain updated weight as able and provide EER. Monitoring/Evaluations: F/u with EER and goal rate. Ht: 190.5 cm Wt: 108.862 kg BMI: 29.9 UBW: Last BM: 12/09/23 (12/12/23 12:11) MNA: 13 Mook Score: 19 Diet: 12/16/23 13:42 NPO Diet Diet Modifications: ice chips ok NPO Type: NPO except for Meds Nutrition Percent Meal Consumed pt is NPO 12/16/23 18:00 Labs: RBC 5.22 X10^6/uL (4.5-5.9) 12/18/23 05:40 Hgb 15.1 g/dL (13.5-17.5) 12/18/23 05:40 Hct 45.9 % (41-53) 12/18/23 05:40 Creatinine 0.64 mg/dL (0.66-1.25) L 12/18/23 05:40 Lactate 1.7 mmol/L (0.7-2.1) 12/14/23 12:15 NT-Pro-B Natriuret Pep 408 pg/mL (<125) H 12/16/23 04:35 Electronically Signed by: Taya Crowley 12/18/23 12:21 Clinical Dietitian [address] [address]
--- NOTE | 2023-12-18 12:58 | CM.DPNOTE ---
DCP Note [employer] reviewed EMR. Per nursing staff/team in morning rounds pt did very well overnight. Floor care now, up in chair, cognitively doing better, but no bowel tones yet. No high flow, on 4ltrs O2. Hospitalist in agreement with starting PT/OT today. On TPN.? Anticipate discharge home w/family w/close outpatient follow up. Patient may benefit from HH referral once discharge needs are better known. CM team will updated TCM team at de when plan known. CM team following clinical course closely. ALBINO Forrester
--- NOTE | 2023-12-18 13:19 | PT.IIE ---
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 Bleeding from ear Congestive heart failure Coronary artery aneurysm Essential hypertension (04/23/16) Gait instability 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 He states he hasn't walked in years and then he states he walks with walking stick in the house. It seems like he walks with walking stick in the house and does not leave the house much , he states he has a recumbent bike in the house and this is his biggest exercise. Activities of Daily Living and IADL's Not fully clear, but pt reports I. Lives with who works and does all the home care tasks and errands. Pt does have a son and unsure if son lives nearby or not. Social History Household Members spouse,family Living Arrangements House Number of Stairs To Enter/Railing? 2 steps and no rail to enter. Pt states his son picked him up and took him up the steps after his back surgery and he con't to perseverate on the steps. They rent and they have not been able to put up a rail. Home Environment Standard Height Toilet,Walk in Shower Home Equipment Front Wheel Walker,Four Wheel Walker,Straight Cane,Tub Transfer Bench,Grab Bars Near Toilet,Grab Bars In Shower Additional Social History Comment Pt is not working M2 PT-IP Current Condition Start: 12/14/23 06:44 Freq: NEEDED Status: Active Protocol: Document 12/18/23 12:27 MB (Rec: 12/18/23 13:18 MB [id number]) Physical Therapy Current Condition Current Condition Evaluation Date 12/18/23 Treatment Diagnosis Weakness, infected appendix s/ p surgery, sepsis, respiratory failure M3 PT-IP Subjective Start: 12/14/23 06:44 Freq: NEEDED Status: Active Protocol: Document 12/18/23 12:27 MB (Rec: 12/18/23 13:18 MB [id number]) Subjective Physical Therapy Visit Type Type Initial Evaluation Visit Start Time 12:27 Visit Stop Time 12:57 Number of BUSINESS ASSISTANT Visits 0 Physical Therapy Visit Comments Patient Comments Pt tends to perseverate on stair situation entering home during PT assessment. He also states that even though his legs test strong, putting together the whole picture doesn't work as far as trouble standing. Therapy Pain Assessment Pain When Pain Assessed At Rest Pain Present Pain Present Pain Reported Location Abdomen Intensity 2 Scale Used Ann-Funez (Faces) M4 PT-IP Mobility and Gait Start: 12/14/23 06:44 Freq: NEEDED Status: Active Protocol: Document 12/18/23 12:27 MB (Rec: 12/18/23 13:18 MB [id number]) PT-Bed Mobility Assessment Rolling Type of Rolling Roll to Right Level of Assist Contact Guard Assistance Supine to Sit Supine to Sit Contact Guard Assistance,1 Person Assistance,Head of Bed Elevated,Bedrails Sit to Supine Sit to Supine Total Assistance,2 Person Assistance,Bedrails Scooting Scooting to Edge of Bed Contact Guard Assistance Scooting Up and Down in Bed Contact Guard Assistance PT-Transfer Assessment Sit to and From Stand Sit to and from Stand Maximum Assistance,2 Person Assistance,Use of Upper Extremities Equipment Transfer Assistive Device Gait Belt,Front Wheeled Walker Orthotic/Prosthetic Devices or Brace: No Comments Mobility Comments Pt requires cues and heavy use of bed rails for bed mobility : HOB increased for supine to sit and max A for sit to supine, 2 person assistance, and then cues and bed in Trendelenburg and cues for knees bent and cues to grab HOB to scoot up to HOB. Attempted STS x2 with cues for hand placement and max A. Pt with strong posterior lean, cues to push up from the mattress bed rail with left hand and to keep feet on the floor for standing. 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 Poor ability to understand simple functional cues today and this is likely d/t recent infection/time in ICU. HR increases to 129 BPM with activity and O2 sats 92% on 4L O2. PT-Balance Assessment Sitting Balance and Reactions Static Sitting Balance Ability Poor Dynamic Sitting Balance Ability Poor Standing Balance and Reactions Static Standing Balance Ability Poor Dynamic Standing Balance Ability Poor Device Used Posterior lean, use of bed rail for sitting, heavy assist , walker to stand M5 PT-IP Objective Assessments Start: 12/14/23 06:44 Freq: NEEDED Status: Active Protocol: Document 12/18/23 12:27 MB (Rec: 12/18/23 13:18 MB [id number]) Orientation Orientation/Cognition Level of Alertness Confusional State Orientation Name,Age,Birthday,Month,Year, Place Language Function Ability No Deficits Noted Safety Awareness Decreased Safety Awareness Comments PT with acute encephalopathy, likely d/t infection and ICU stay, does make good effort with therapy and anticipate ongoing improvements Gross Range of Motion Upper Extremity ROM Impairments Defer to OT Lower Extremity ROM Assessment Within Functional Limits Strength Lower Extremity Strength Knee B knee extension 4/5 Ankle B ankle DF 4+/5; right great toe extension 5/5 and left great toe 4/5 Comments Strength Comments Pt is functionally weak with attempted standing and this might be d/t fear and/or cardiopulomary presentation, strong posterior lean Coordination Assessment Gross Coordination Gross Coordination Impaired Assessment Coordination Comments Pt cannot follow commands. Missing finger left hand. Sensation Assessment Comments Sensation Comments Pt does not follow commands. M6 PT-IP Treatment Start: 12/14/23 06:44 Freq: NEEDED Status: Active Protocol: Document 12/18/23 12:27 MB (Rec: 12/18/23 13:18 MB [id number]) Physical Therapy Treatment Education Education Provided Precautions,Safety M7 PT-IP Assessment and Plan Start: 12/14/23 06:44 Freq: NEEDED Status: Active Protocol: Document 12/18/23 12:27 MB (Rec: 10/17/24 13:18 MB [id number]) PT Summary Assessment and Plan Potential Rehabilitation Potential Good Status of Condition at Evaluation Evolving Summary Impairments Pain,ROM,Strength,Balance, Coordination,Cognition,Bed Mobility,Transfers,Gait, Activity Tolerance Progress Towards Goals Slow Progress due to Medical Issues,Slow Progress - Other Assessment Summary Pt is a 68 y/o male presenting with weakness, infected appendix and s/p surgery, sepsis and respiratory failure . He is alert today and his O2 has been decreased to 4L nasal canula. His sats remain 92% throughout treatment. His HR does increase with attempted STS and he reports needing to rest. Although ankle, toes and knees test strong with MMT, functional movement is impaired and pt is weak with strong posterior lean. He makes a great effort given his acute medical status and anticipate ongoing improvement as his acute mentation and medical status continue to improve. Currently requires total lift for OOB. Recommend SNF at d/c. Goals Bed Mobility Goal Independent Transfer Goal Standby Assistance,Front Wheeled Walker Gait Goal Standby Assistance,Front Wheel Walker Gait Distance 75 Other Goals Pt will ascend and descend two steps with no more than FIRMWARE ARCHITECT to allow safe home entrance. Days to Meet Goals 10 Frequency of Treatment Frequency Of Treatment Once a Day Treatment Plan Physical Therapy Treatment Plan Bed Mobility Training,Transfer Training,Gait Training, Therapeutic Exercise,Balance Retraining,Post Op Education, Discharge Planning,Hot or Cold Pack,Neuromuscular Re-ed, Coordination Retraining,Manual Therapy Precautions Abdominal Surgery Precautions Log Roll,Lifting Restrictions, Gait Belt above Incisional Area Other Precautions Pt is aware of log rolling from previous back surgery Recommendations To Nursing Amount of Assist Needed Mechanical Lift Discharge Recommendations PT Discharge Recommendations SNF Rehab Transportation Needs at Discharge Wheelchair/Cabulance
--- NOTE | 2023-12-18 16:36 | PM.PN.1 ---
Subjective Subjective Date Patient Seen: 12/18/23 Time Patient Seen: 08:35 Interval history: 68 M admitted with perforated appendicitis. NG tube placed yesterday. Appreciate surgical management yesterday. approx 3L out via NG tube since placement. He feels improved without reported pain. Discussed with surgeon, given persistent tachycardia trial fentanyl patch for pain control at this time. Patient is clinically improved. WBC improved today, surgeon did start fluconazole yesterday. Will start TPN given unclear how long patient will be NPO at this point. Interval history: The patient reports to be feeling better, sitting up, more clear and conversational. He is mildly forgetful. He has not yet passed flatus though notes more gurgling in his abdomen. Exam Vital Signs (past 8 hours): - 12/18/23 08:57 12/18/23 09:20 12/18/23 12:00 Temperature 96.7 F L Pulse Rate 104 H 94 H Respiratory Rate 18 Blood Pressure 131/90 114/75 Pulse Oximetry 93 96 Oxygen Delivery Method Nasal Cannula Oxygen Flow Rate 4 Fraction of Inspired Oxygen 80 SaO2/FiO2 Ratio 120 Oxygen Delivery Method Nasal Cannula Oxygen Flow Rate 4 Narrative Exam Narrative: GEN: Comp, sitting up in chair, appears comfortable. Nasogastric tube in place. HEENT:NC, Face symmetric CHEST: Decreased breath sounds bilateral bases otherwise clear to auscultation. CV: Regular rate and rhythm without murmurs. ABD: Soft, nontender, nondistended, bowel tones present in upper abdomen, KIRSTEN draining serosanguineous fluid EXTR: No edema. SKIN: warm and dry, no rash NEURO: Alert and oriented x3, bilateral hand tremors are minimal Objective Labs 12/18/23 05:40 12/18/23 05:40 Labs: Laboratory Results - last 24 hr 12/18/23 05:40 WBC 14.0 H RBC 5.22 Hgb 15.1 Hct 45.9 MCV 87.9 MCH 28.9 MCHC 32.9 RDW 13.6 Plt Count 367 Neut % (Auto) 81.0 H Lymph % (Auto) 8.5 L [place] % (Auto) 7.6 Eos % (Auto) 2.4 Baso % (Auto) 0.5 Neut # (Auto) 99401 H Lymph # (Auto) 1200 [place] # (Auto) 1100 H Eos # (Auto) 300 Baso # (Auto) 100 Sodium 138 Potassium 2.4 L* Chloride 97 L Carbon Dioxide 38 H BUN 30 H Creatinine 0.64 L Estimated GFR > 60 BUN/Creatinine Ratio 46.9 H Glucose 124 H Calcium 6.6 L Phosphorus 2.3 Magnesium 2.1 Total Bilirubin 0.5 AST 35 ALT 24 Alkaline Phosphatase 49 Total Protein 5.2 L Albumin 2.6 L Globulin 2.6 Albumin/Globulin Ratio 1.0 PFSH Medical History Influenza A Anesthesia Gait instability 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 S/p ileocecectomy for acute ruptured gangrenous appendicitis 12/12/2023, complicated by possible intra-abdominal abscess and post operative ileus - Continue meropenem therapy. Fluconazole added 12/15. MRSA swab was negative. KIRSTEN drainage appears serosanguineous without purulence. Ongoing management per General surgery. - Dr. Mancuso did not feel there to be an abscess, Dr. Spears discussed with IR for possible abscess drainage, but per IR there was no window. - NG tube plaved 12/16 - PICC line placed and TPN started 12/17/2023. 2. Sepsis with acute hypoxic respiratory failure, hyperbilirubinema secondary to #1 above Secondary to ruptured appendicitis. He remains tachycardic. Lactate remains within normal limits at 1.7 today. White blood cell count is stable today at 15. -patient tachycardic, hypertensive, tremors, adamantly denies EtOH use in the past. -likely due in part now to combination of abdominal distension, ileus -meropenem to continue along with fluconazole added by surgery 3. Acute hypoxic respiratory failure Patient is requiring supplemental oxygen to maintain saturations in the 90s. Suspect a portion of this is volume overload/pulmonary edema but also possible sepsis and abdominal distension contributing today. Stopped furosemide drip with improved CXR appearance with regard to fluid overload. Changed to daily furosemide on 12/16. 4. Acute on chronic CHFrEF TTE with EF 30-35%, apparently chronic after discussing with railway signal technician yesterday. Recommended outpatient ischemic evaluation given wall motion abnormalities. currently on lasix infusion, will stop with improvement in CXR with regard to fluid overload. -continue lisinopril, continue home beta nadeen metoprolol 25 mg daily -changed from furosemide infusion to daily furosemide 40 mg IV. Appears more euvolemic but still on high amounts of oxygen today. 5. Hyponatremia Resolved. 6. Hypokalemia. replete intravenously 7. Hypertension Will continue monitoring closely. Improved with diuresis and resumption of home medications. 8. Chronic low back pain with baseline gait impairment and chronic lower extremity weakness Start physical therapy Code status Full Prophylaxis If not contraindicated, would recommend initiating DVT prophylaxis. Will defer to General surgery. Disposition Home vs SNF, but still likely a few days away from PT/OT at this time. Time-Based Coding :: [TOTAL MINUTES] spent with patient and on the chart (including review of chart, obtaining history, exam, reviewing outside data, placing orders, documenting exam and treatment plan, and counseling patient) on [DATE]. PROFEE Charge codes Subsequent inpatient/observation care: 98622
--- NOTE | 2023-12-18 16:50 | OT.IP.EVAL ---
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 Hypogonadism in male (04/23/16) Influenza A Pure hypercholesterolemia (07/30/16) Surgical History (Last Reviewed 12/18/23 @ 16:39 by Tyler Culver MD) H/O surgical amputation of finger H/O vasectomy Hx of tonsillectomy Occupational Therapy Inpatient Evaluation/Re-Eval M1 PT/OT-IP Prior Functional Status Start: 12/14/23 06:44 Freq: NEEDED Status: Active Protocol: Document 12/18/23 16:50 [facility] (Rec: 12/18/23 17:19 [facility] [id number]) Medical Review Prior Functional Status Medical History Reviewed Yes Communication Unsure baseline diet and communication, pt presents with confusion on PT assessment date Mobility and Gait Pt is not clear. He states he hasn't walked in years and then he states he walks with walking stick in the house. It seems like he walks with walking stick in the house and does not leave the house much , he states he has a recumbent bike in the house and this is his biggest exercise. Activities of Daily Living and IADL's Not fully clear, but pt reports I. Lives with who works and does all the home care tasks and errands. Pt does have a son and unsure if son lives nearby or not. Social History Household Members spouse,family Living Arrangements House Number of Stairs To Enter/Railing? 2 steps and no rail to enter. Pt states his son picked him up and took him up the steps after his back surgery and he con't to perseverate on the steps. They rent and they have not been able to put up a rail. Home Environment Standard Height Toilet,Walk in Shower Home Equipment Front Wheel Walker,Four Wheel Walker,Straight Cane,Tub Transfer Bench,Grab Bars Near Toilet,Grab Bars In Shower Additional Social History Comment Pt is not working M2 OT-IP Current Condition Start: 12/18/23 17:04 Freq: Status: Active Protocol: Document 12/18/23 16:50 [facility] (Rec: 12/18/23 17:19 [facility] [id number]) Occupational Therapy Current Condition Current Condition Evaluation Date 12/18/23 Treatment Diagnosis S/P Ileococectomy for ruptured gangrenous appendicitis Diagnosis Onset Date 12/12/23 Post Operative Precautions Abdominal Surgery Precautions Log Roll,Lifting Restrictions, Gait Belt above Incisional Area M3 OT- IP Subjective and Pain Start: 12/18/23 17:04 Freq: Status: Active Protocol: Document 12/18/23 16:50 [facility] (Rec: 12/18/23 17:19 [facility] [id number]) OT- Subjective Occupational Therapy Visit Type Type Initial Evaluation Visit Start Time 16:30 Visit Stop Time 16:50 Occupational Therapy Visit Comments Patient Comments Pt not wanting to get up out of bed at this time. Pt needing two person assist for bed mobility needs with PT this morning. Patient/Caregiver Goals TO get better. OT Pain Assessment Pain When Pain Assessed At Rest Pain Present Pain Present Denied Pain M4 OT- IP ADL's Start: 12/18/23 17:04 Freq: Status: Active Protocol: Document 12/18/23 16:50 [facility] (Rec: 12/18/23 17:19 [facility] [id number]) OT [id number] Comments OT Self-Feeding Comments Pt just able to eat ice chips at this time. OT ADL-Grooming Comments OT Grooming Comments Not performed. OT ADL-Oral Care Comments Oral Care Comments not performed OT ADL-Dressing General Eval Lower Body Dressing Ability Total Assistance Areas Needing Assistance Socks OT ADL-Bathing Comments OT Bathing Comments Sponge bath more appropriate at this time. M5 OT- IP IADL's Start: 12/18/23 17:04 Freq: Status: Active Protocol: Document 12/18/23 16:50 [facility] (Rec: 12/18/23 17:19 [facility] [id number]) OT-Instrumental Activities of Daily Living Home Safety Awareness Awareness of Need for Assistance at Home Good Awareness Home Safety Comments Pt realizes best to go to rehab prior to going home. Medication Management Medication Management Caregiver Administers Money Management Money Management Caregiver Provides Assistance Meal Preparation Meal Preparation Caregiver Provides Assist Lingo Cleaner Lingo Cleaner Caregiver Provides Assist Driving Driving Caregiver Provides Assist M6 OT- IP Functional Cognition Start: 12/18/23 17:04 Freq: Status: Active Protocol: Document 12/18/23 16:50 [facility] (Rec: 12/18/23 17:19 [facility] [id number]) Cognitive Factors Limiting Selfcare Function Cognitive Ability Level of Alertness Alert,Confusional State Patient Orientation Name,Age,Year,Place,Situation Attention Span Ability Capable of Focused Attention, Capable of Sustained Attention Ability to Follow Commands Able to Follow One Step Commands with Increased Time, Able to Follow One Step Commands with Repetition Memory Description Short Term Impaired,Working Impaired Cognitive Tests SLUMS Pt scored 17/30 on the SLUMS which implies dementia, however per pt states usually does not think well after having surgery and is aware that he is not at his baseline for his cognition. Good to retest pt after he clears more . Cognitive Comments Cognitive Assessment Comments Pt needing concrete cues to follow for the SLUMS. Pt admits that he is not thinking well and needing simple concrete cues to follow. Pt does have good awareness not to get up without calling for assistance and that he will benefit from skilled rehab prior to going home. OT- Vision and Hearing OT- Vision Assessment Visual Acuity Glasses For Reading Visual Attentiveness WFL Occular Pursuits WFL Visual Convergence WFL Visual [place]man WFL Diplopia Absent M7 OT- IP Mobility and Balance Start: 12/18/23 17:04 Freq: Status: Active Protocol: Document 12/18/23 16:50 [facility] (Rec: 12/18/23 17:19 [facility] [id number]) OT-Transfer Assessment Comments Mobility Comments Pt needing extensive two person assist for mobility needs per PT eval. M8 OT- IP Objective Assessments Start: 12/18/23 17:04 Freq: Status: Active Protocol: Document 12/18/23 16:50 [facility] (Rec: 12/18/23 17:19 [facility] [id number]) OT Gross Range of Motion Upper Extremity Range of Motion Assessment Within Functional Limits OT Strength Comments Strength Comments At least 4-/5 OT- Coordination Assessment Upper Extremity Finger to Nose Test Within Functional Limits M9 OT- IP Assessment and Plan Start: 12/18/23 17:04 Freq: Status: Active Protocol: Document 12/18/23 16:50 [facility] (Rec: 12/18/23 17:19 [facility] [id number]) OT Summary Assessment and Plan Potential Rehabilitation Potential Fair Analytic Complexity at Evaluation High Summary OT Impairments Pain,Strength,Balance, Functional Cognition, Functional Mobility,Self- Feeding,Grooming,Dressing, Toileting,Bathing,Toilet Transfers,Shower Transfers, Activity Tolerance Progress Towards Goals Slow Progress due to Medical Issues,Slow Progress due to Activity Tolerance,Slow Progress due to Cognition Assessment Summary Pt high complexity and main barriers are steps, now needing extensive assist x2 for most needs. Pt's diagnosis of sepsis and s/p ileocecectomy for acute ruptured gangrenous appendicitis. Goals Self-Feeding Goal Independent Grooming Goal Independent Dressing Goal Minimal Assistance Toileting Goal Minimal Assistance Bathing Goal Moderate Assistance Toilet Transfer Goal Minimal Assistance Shower Transfer Goal Moderate Assistance Days to Meet Goals 25 Frequency of Treatment Other frequency 5x/week Discharge Recommendations OT Discharge Recommendations SNF Rehab Transportation Needs at Discharge Stretcher/Ambulance
--- NOTE | 2023-12-18 16:55 | PM.PN.1 ---
Subjective Subjective Date Patient Seen: 12/18/23 Time Patient Seen: 16:55 Interval history: Feels better today. Still no flatus. Tolerated a clamp trial this morning. Exam Vital Signs (past 8 hours): - 12/18/23 08:57 12/18/23 09:20 12/18/23 12:00 Temperature 96.7 F L Pulse Rate 104 H 94 H Respiratory Rate 18 Blood Pressure 131/90 114/75 Pulse Oximetry 93 96 Oxygen Delivery Method Nasal Cannula Oxygen Flow Rate 4 Fraction of Inspired Oxygen 80 SaO2/FiO2 Ratio 120 Oxygen Delivery Method Nasal Cannula Oxygen Flow Rate 4 Narrative Exam Narrative: Abdomen soft Drain serosanginous Objective Labs 12/18/23 05:40 12/18/23 05:40 Labs: Laboratory Results - last 24 hr 12/18/23 05:40 WBC 14.0 H RBC 5.22 Hgb 15.1 Hct 45.9 MCV 87.9 MCH 28.9 MCHC 32.9 RDW 13.6 Plt Count 367 Neut % (Auto) 81.0 H Lymph % (Auto) 8.5 L [place] % (Auto) 7.6 Eos % (Auto) 2.4 Baso % (Auto) 0.5 Neut # (Auto) 33827 H Lymph # (Auto) 1200 [place] # (Auto) 1100 H Eos # (Auto) 300 Baso # (Auto) 100 Sodium 138 Potassium 2.4 L* Chloride 97 L Carbon Dioxide 38 H BUN 30 H Creatinine 0.64 L Estimated GFR > 60 BUN/Creatinine Ratio 46.9 H Glucose 124 H Calcium 6.6 L Phosphorus 2.3 Magnesium 2.1 Total Bilirubin 0.5 AST 35 ALT 24 Alkaline Phosphatase 49 Total Protein 5.2 L Albumin 2.6 L Globulin 2.6 Albumin/Globulin Ratio 1.0 PFS Medical History Influenza A Anesthesia Gait instability 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 Bleeding from ear 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) Congestive heart failure Coronary artery aneurysm Pure hypercholesterolemia (07/30/16) Hypogonadism in male (04/23/16) Essential hypertension (04/23/16) Surgical History H/O surgical amputation of finger H/O vasectomy Hx of tonsillectomy Family History Father Heart attack Mother Dementia Sister Cancer Social History household members: spouse and family Smoking Status: Never smoker alcohol intake: former substance use type: does not use Assessment & Plan Assessment and plan (1) Postoperative examination: Status: Acute Plan DC NG tube Sips Advance to clear tray when passes flatus Time-Based Coding :: [TOTAL MINUTES] spent with patient and on the chart (including review of chart, obtaining history, exam, reviewing outside data, placing orders, documenting exam and treatment plan, and counseling patient) on [DATE].
[2023-12-18] MEDS: AA 5 %/CALCIUM/LYTES/DEXT 20 % 500 ML with MULTIVITAMIN 10 ML, TRACE ELEMENTS 1 ML, THI... 21.333 ML IV (17:01)
--- NOTE | 2023-12-18 18:43 | PC.NURSE ---
PATIENT STATES FEELING GREAT NO FLATUS, NG TUBE REMOVED ,TOLERATED VERY WELL, PATIENT HAPPY TO HAVE IT OUT.
--- NOTE | 2023-12-18 19:52 | PM.CALLCOV.1 ---
Call Coverage Note Note Date of Patient Contact: 12/18/23 Narrative of Care Provided: With the bump in WBC I and Dr. Chapo Nuñez reviewed the CT scan again and both agree, the reported possible has no drainable component and represents surgical changes with inflammation. Will continue to monitor. Consider repeat CT in 2-3 days if no progress. On the positive side: the patient shows clinical improvement.
[2023-12-18] MEDS: ERYTHROMYCIN BASE 250 MG TABLET PO (21:06)
[2023-12-18] MEDS: FLUCONAZOLE 400 MG/200 ML PIGGYBACK 100 MG IV (21:06)
[2023-12-18] MEDS: HYDROCODONE/ACET 5/325 TABLET 1 TAB PO (22:29)
[2023-12-18] MEDS: TRAZODONE 50 MG TABLET 100 MG PO (22:30)
[2023-12-19] VITALS (8 sets, daily range): BP systolic 114–140; BP diastolic 60–87; PULSE 89–110; RESP 16–22; TEMP 35.9–37.1; O2SAT 93–98
[2023-12-19] MEDS: MEROPENEM 2 GM in SODIUM CHLORIDE 0.9% 100 ML IV ×3 (02:31→22:45)
[2023-12-19] MEDS: ERYTHROMYCIN BASE 250 MG TABLET PO ×4 (02:32→20:30)
[2023-12-19 05:09] LABS: Add Manual Diff / Slide Review NO; Basophils Absolute Auto 100 /uL (0-100); Basophils Percent Auto 0.7 % (0-2); Eosinophils Absolute Auto 400 /uL (0-450); Eosinophils Percent Auto 3.2 % (2-4); Hematocrit 44.3 % (41-53); Hemoglobin 14.5 g/dL (13.5-17.5); Lymphocytes Absolute Auto 1200 /uL (1100-4500); Lymphocytes Percent Auto 10.8 % (25-40); Mean Corpuscular HGB Conc 32.8 % (30-36); Mean Corpuscular Hemoglobin 28.9 PG (26-34); Mean Corpuscular Volume 88.1 fL (80-100); Monocytes Absolute Auto 900 /uL (0-900); Monocytes Percent Auto 7.8 % (3-14); Neutrophils Absolute Auto 8700 /uL (1500-7000); Neutrophils Percent Auto 77.5 % (50-75); Platelet Count 371 X10^3/uL (150-400); Red Blood Cell Count 5.02 X10^6/uL (4.5-5.9); Red Cell Distribution Width 13.5 % (11.6-14.8); White Blood Cell Count 11.3 X10^3/uL (4.5-11.0)
[2023-12-19 05:30] LABS: Alanine Aminotransferase 28 IU/L (<50); Albumin Globulin Ratio 1.1 (1.0-2.8); Alkaline Phosphatase 57 U/L (38-126); Aspartate Aminotransferase 44 IU/L (17-59); BUN Creatinine Ratio 44.3 (6-22); Bilirubin Total 0.6 mg/dL (0.2-1.3); Blood Urea Nitrogen 31 mg/dL (9-20); Calcium 7.9 mg/dL (8.4-10.2); Chloride 91 mmol/L (98-107); Estimated Glomerular Filt Rate > 60 mL/min (>60); Globulin 2.8 g/dL (1.7-4.1); Glucose 140 mg/dL (80-110); HEMOLYSIS < 15 (0-50); Potassium 2.9 mmol/L (3.4-5.1); Sodium 133 mmol/L (137-145); Total Protein 5.8 g/dL (6.3-8.2)
[2023-12-19 05:37] LABS: Carbon Dioxide 36 mmol/L (22-32)
[2023-12-19 06:11] LABS: Phosphorous 3.2 mg/dL (2.3-3.7)
--- NOTE | 2023-12-19 07:47 | PM.PN.1 ---
Subjective Subjective Date Patient Seen: 12/19/23 Time Patient Seen: 14:00 Interval history: 68 M admitted with perforated appendicitis. NG tube placed yesterday. Appreciate surgical management yesterday. approx 3L out via NG tube since placement. He feels improved without reported pain. Discussed with surgeon, given persistent tachycardia trial fentanyl patch for pain control at this time. Patient is clinically improved. WBC improved today, surgeon did start fluconazole yesterday. Will start TPN given unclear how long patient will be NPO at this point. Interval history: The patient developed mild hypoxemia overnight which is resolved today with saturation of 94% on room air. He is feeling better. He has not passed flatus. He appears mildly confused and rambling at times. Exam Vital Signs (past 8 hours): - 12/19/23 00:00 12/19/23 04:24 Temperature 97.6 F 97.4 F L Pulse Rate 89 92 H Respiratory Rate 22 20 Blood Pressure 130/87 114/84 Pulse Oximetry 97 96 Oxygen Flow Rate 6 6 Fraction of Inspired Oxygen 80 SaO2/FiO2 Ratio 120 Oxygen Delivery Method Nasal Cannula,Humidification Oxygen Flow Rate 6 Narrative Exam Narrative: GEN: Comp, sitting up in chair, appears comfortable. HEENT:NC, Face symmetric CHEST: Decreased breath sounds bilateral bases otherwise clear to auscultation. CV: Regular rate and rhythm without murmurs. ABD: Soft, nontender, nondistended, bowel tones present in upper abdomen, KIRSTEN draining serosanguineous fluid EXTR: No edema. SKIN: warm and dry, no rash NEURO: Alert and oriented x3, 10 genital, bilateral hand tremors are minimal Objective Labs 12/19/23 04:35 12/19/23 15:15 Labs: Laboratory Results - last 24 hr 12/18/23 12/19/23 05:40 04:35 WBC 11.3 H RBC 5.02 Hgb 14.5 Hct 44.3 MCV 88.1 MCH 28.9 MCHC 32.8 RDW 13.5 Plt Count 371 Neut % (Auto) 77.5 H Lymph % (Auto) 10.8 L [place] % (Auto) 7.8 Eos % (Auto) 3.2 Baso % (Auto) 0.7 Neut # (Auto) 8700 H Lymph # (Auto) 1200 [place] # (Auto) 900 Eos # (Auto) 400 Baso # (Auto) 100 Sodium 133 L Potassium 2.9 L Chloride 91 L Carbon Dioxide 36 H BUN 31 H Creatinine 0.70 Estimated GFR > 60 BUN/Creatinine Ratio 44.3 H Glucose 140 H Calcium 7.9 L Phosphorus 2.3 3.2 Total Bilirubin 0.6 AST 44 ALT 28 Alkaline Phosphatase 57 Total Protein 5.8 L Albumin 3.0 L Globulin 2.8 Albumin/Globulin Ratio 1.1 PFSH Medical History Influenza A Anesthesia Gait instability 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 S/p ileocecectomy for acute ruptured gangrenous appendicitis 12/12/2023, complicated by possible intra-abdominal abscess and post operative ileus - Continue meropenem therapy. Fluconazole added 12/15. MRSA swab was negative. KIRSTEN drainage appears serosanguineous without purulence. Ongoing management per General surgery. - NG tube placed 12/16 and removed on 12/17 - PICC line placed and TPN started 12/17/2023. 2. Sepsis with acute hypoxic respiratory failure, hyperbilirubinema secondary to #1 above Secondary to ruptured appendicitis. He remains tachycardic. Lactate remains within normal limits at 1.7 today. White blood cell count is stable today at 15. -hypoxemia resolved 12/19/2023, off oxygen -likely due in part now to combination of abdominal distension, ileus 3. Acute hypoxic respiratory failure -resolved, likely due to volume overload/pulmonary edema but also possible sepsis and abdominal distension contributing today. 4. Acute on chronic CHFrEF TTE with EF 30-35%, apparently chronic after discussing with presentation team member yesterday. Recommended outpatient ischemic evaluation given wall motion abnormalities. currently on lasix infusion, will stop with improvement in CXR with regard to fluid overload. -continue lisinopril, continue home beta nadeen metoprolol 25 mg daily -continue furosemide 40 mg IV daily. 5. Hyponatremia Resolved. 6. Hypokalemia. replete intravenously 7. Hypertension Will continue monitoring closely. Improved with diuresis and resumption of home medications. 8. Chronic low back pain with baseline gait impairment and chronic lower extremity weakness Start physical therapy Code status Full Prophylaxis If not contraindicated, would recommend initiating DVT prophylaxis. Will defer to General surgery. Disposition Home vs SNF, but still likely a few days away from PT/OT at this time. Time-Based Coding :: [TOTAL MINUTES] spent with patient and on the chart (including review of chart, obtaining history, exam, reviewing outside data, placing orders, documenting exam and treatment plan, and counseling patient) on [DATE]. PROFEE Charge codes Subsequent inpatient/observation care: 18104
[2023-12-19] MEDS: METOPROLOL ER 25 MG TABLET PO (08:52)
[2023-12-19] MEDS: DULOXETINE 30 MG CAPSULE 60 MG PO (08:52)
[2023-12-19] MEDS: FUROSEMIDE 40 MG/4 ML VIAL IV (08:52)
[2023-12-19] MEDS: lisinopriL 20 MG TABLET PO (08:53)
[2023-12-19] MEDS: CITALOPRAM 10 MG TABLET 20 MG PO (08:53)
[2023-12-19] MEDS: ENOXAPARIN 40 MG/0.4 ML SYRINGE SUBCUT (08:54)
[2023-12-19] MEDS: CELECOXIB 200 MG CAPSULE PO ×2 (08:58→20:25)
[2023-12-19] MEDS: POTASSIUM CHLORIDE IN WATER 10 MEQ/100 ML PIGGYBACK 100 MEQ IV ×6 (09:21→17:37)
--- NOTE | 2023-12-19 11:19 | PT.IPTN ---
Current Diagnoses Unspecified acute appendicitis (12/12/23) Encounter for follow-up examination after completed treatment for conditions other than malignant neoplasm (12/12/23) Surgery Performed Operation Date: 12/12/23 15:30 Actual Procedures p Laparotomy Ileocecectomy - Jorge Polanco MD Physical Therapy Treatment Note M2 PT-IP Current Condition Start: 12/14/23 06:44 Freq: NEEDED Status: Active Protocol: Document 12/18/23 12:27 MB (Rec: 12/18/23 13:18 MB [id number]) Physical Therapy Current Condition Current Condition Evaluation Date 12/18/23 Treatment Diagnosis Weakness, infected appendix s/ p surgery, sepsis, respiratory failure M3 PT-IP Subjective Start: 12/14/23 06:44 Freq: NEEDED Status: Active Protocol: Document 12/19/23 11:50 TS (Rec: 12/19/23 12:04 TS [id number]) Subjective Physical Therapy Visit Type Type Treatment Note Visit Start Time 11:19 Visit Stop Time 11:49 Number of ELEVATOR DISPATCHER Visits 1 Physical Therapy Visit Comments Patient Comments Pt appears confused, requires motivation to participate with PT. M4 PT-IP Mobility and Gait Start: 12/14/23 06:44 Freq: NEEDED Status: Active Protocol: Document 12/19/23 11:50 TS (Rec: 12/19/23 12:04 TS [id number]) PT-Bed Mobility Assessment Rolling Type of Rolling Roll to Right Level of Assist Moderate Assistance,1 Person Assistance Supine to Sit Supine to Sit Moderate Assistance,1 Person Assistance,Head of Bed Elevated,Bedrails Sit to Supine Sit to Supine Contact Guard Assistance Scooting Scooting to Edge of Bed Moderate Assistance PT-Transfer Assessment Sit to and From Stand Sit to and from Stand Moderate Assistance,2 Person Assistance,Use of Upper Extremities Equipment Transfer Assistive Device Gait Belt,Front Wheeled Walker Orthotic/Prosthetic Devices or Brace: No Comments Mobility Comments BP in supine 134/86. Pt requires ModA for logroll to R side and with max cueing. Supine to sit ModA for uprighting trunk. Pt reports some lightheadedness, BP in sitting 91/62. Pt somewhat agitated and is unsure of why we are helping him. He states he has help at home and does not need ot do this, he eventually agreed to stand. STS with ModA x2 with FWW, pt has difficulty coming into standing with some buckling of knees. Pt requests back to bed and does not want therapy anymore. Sit to supine into bed CGA. ELEVATOR DISPATCHER informed pt he will be back tomorrow, pt requested ELEVATOR DISPATCHER not to come, nursing notified. PT-Balance Assessment Sitting Balance and Reactions Static Sitting Balance Ability Fair Dynamic Sitting Balance Ability Fair Standing Balance and Reactions Static Standing Balance Ability Poor Dynamic Standing Balance Ability Poor Device Used FWW M5 PT-IP Objective Assessments Start: 12/14/23 06:44 Freq: NEEDED Status: Active Protocol: Document 12/18/23 12:27 MB (Rec: 12/18/23 13:18 MB [id number]) Orientation Orientation/Cognition Level of Alertness Confusional State Orientation Name,Age,Birthday,Month,Year, Place Language Function Ability No Deficits Noted Safety Awareness Decreased Safety Awareness Comments PT with acute encephalopathy, likely d/t infection and ICU stay, does make good effort with therapy and anticipate ongoing improvements Gross Range of Motion Upper Extremity ROM Impairments Defer to OT Lower Extremity ROM Assessment Within Functional Limits Strength Lower Extremity Strength Knee B knee extension 4/5 Ankle B ankle DF 4+/5; right great toe extension 5/5 and left great toe 4/5 Comments Strength Comments Pt is functionally weak with attempted standing and this might be d/t fear and/or cardiopulomary presentation, strong posterior lean Coordination Assessment Gross Coordination Gross Coordination Impaired Assessment Coordination Comments Pt cannot follow commands. Missing finger left hand. Sensation Assessment Comments Sensation Comments Pt does not follow commands. M6 PT-IP Treatment Start: 12/14/23 06:44 Freq: NEEDED Status: Active Protocol: Document 12/19/23 11:50 TS (Rec: 12/19/23 12:04 [id number]) Physical Therapy Treatment Education Education Provided Precautions,Safety M7 PT-IP Assessment and Plan Start: 12/14/23 06:44 Freq: NEEDED Status: Active Protocol: Document 12/19/23 11:50 TS (Rec: 12/19/23 12:04 [id number]) PT Summary Assessment and Plan Potential Rehabilitation Potential Good Summary Impairments Pain,ROM,Strength,Balance, Coordination,Cognition,Bed Mobility,Transfers,Gait, Activity Tolerance Progress Towards Goals Slow Progress due to Medical Issues,Slow Progress - Other Assessment Summary Jamal is making slow progress with his mobility. He requires max cues for logroll and ModA for bed mobility and STS. ELEVATOR DISPATCHER attempted to get pt to ambulate and he declined, he does not understand why he needs therapy.. He appears confused and agitated working with therapy and does not want therapy to come back. PT continues to recommend SNF. Goals Bed Mobility Goal Independent Transfer Goal Standby Assistance,Front Wheeled Walker Gait Goal Standby Assistance,Front Wheel Walker Gait Distance 75 Other Goals Pt will ascend and descend two steps with no more than ROOF FITTER to allow safe home entrance. Days to Meet Goals 10 Frequency of Treatment Frequency Of Treatment Once a Day Treatment Plan Physical Therapy Treatment Plan Bed Mobility Training,Transfer Training,Gait Training, Therapeutic Exercise,Balance Retraining,Post Op Education, Discharge Planning,Hot or Cold Pack,Neuromuscular Re-ed, Coordination Retraining,Manual Therapy Precautions Abdominal Surgery Precautions Log Roll,Lifting Restrictions, Gait Belt above Incisional Area Other Precautions Pt is aware of log rolling from previous back surgery Recommendations To Nursing Amount of Assist Needed Mechanical Lift Discharge Recommendations PT Discharge Recommendations SNF Rehab Transportation Needs at Discharge Wheelchair/Cabulance
--- NOTE | 2023-12-19 11:45 | CM.DPNOTE ---
DCP Note COIL TIER reviewed EMR. per PT/OT, rec SNF due to pt being william lift. Per hospitalist, may be ready medically to dc within next few days. COIL TIER met with pt in room and introduced self and role. Pt pleasant and chatty, if occasionally saying confusing things. Hx of [facility], preference is to dc home with HH. Gave CM team verbal permission to discuss dcp with spouse. pt prefers to be in [place]/with [facility] if SNF and has no HH preference. Per hospitalist in morning rounds, was on 5-6ltrs O2 overnight. COIL TIER spoke with spouse Sharon ([phone]). reports she works and cannot be home with him / and cannot william him. If pt progresses and is able to transfer spouse can assist him at home. Preference is to stay in [place], no HH preference. COIL TIER spoke with Rhiannon from , kindly agreed to review. tight on beds, may have a male bed available Friday? COIL TIER [facility] (Picked rotating ict business analyst [facility]) kindly agreed to review. P: medical POC continues to unfold. SNF vs HH, [facility] and [facility] reviewing. [facility] and f2f needed. CM team will continue to follow closely. ALBINO Forrester
--- NOTE | 2023-12-19 11:50 | OT.IP.TRT ---
Current Diagnoses Unspecified acute appendicitis (12/12/23) Encounter for follow-up examination after completed treatment for conditions other than malignant neoplasm (12/12/23) Surgery Performed Operation Date: 12/12/23 15:30 Actual Procedures p Laparotomy Ileocecectomy - Jorge Polanco MD Occupational Therapy Treatment Note M2 OT-IP Current Condition Start: 12/18/23 17:04 Freq: Status: Active Protocol: Document 12/18/23 16:50 [facility] (Rec: 12/18/23 17:19 [facility] [id number]) Occupational Therapy Current Condition Current Condition Evaluation Date 12/18/23 Treatment Diagnosis S/P Ileococectomy for ruptured gangrenous appedicitis Diagnosis Onset Date 12/12/23 Post Operative Precautions Abdominal Surgery Precautions Log Roll,Lifting Restrictions, Gait Belt above Incisional Area M3 OT- IP Subjective and Pain Start: 12/18/23 17:04 Freq: Status: Active Protocol: Document 12/19/23 11:50 [facility] (Rec: 12/19/23 12:22 [facility] [id number]) OT- Subjective Occupational Therapy Visit Type Type Treatment Note Visit Start Time 11:18 Visit Stop Time 11:50 Occupational Therapy Visit Comments Patient Comments Pt agreed to try to get up after encouragement. Pt insistent to go home. Patient/Caregiver Goals Pt insistent to go home. Case management able to talk to pt' s and she still works and not able to care for him. OT Pain Assessment Pain When Pain Assessed During Mobility Pain Present Pain Present Pain Reported M4 OT- IP ADL's Start: 12/18/23 17:04 Freq: Status: Active Protocol: Document 12/18/23 16:50 [facility] (Rec: 12/18/23 17:19 [facility] [id number]) OT [id number] Comments OT Self-Feeding Comments Pt just able to eat ice chips at this time. OT ADL-Grooming Comments OT Grooming Comments Not performed. OT ADL-Oral Care Comments Oral Care Comments not performed OT ADL-Dressing General Eval Lower Body Dressing Ability Total Assistance Areas Needing Assistance Socks OT ADL-Bathing Comments OT Bathing Comments Sponge bath more appropriate at this time. M5 OT- IP IADL's Start: 12/18/23 17:04 Freq: Status: Active Protocol: Document 12/18/23 16:50 [facility] (Rec: 12/18/23 17:19 [facility] [id number]) OT-Instrumental Activities of Daily Living Home Safety Awareness Awareness of Need for Assistance at Home Good Awareness Home Safety Comments Pt realizes best to go to rehab prior to going home. Medication Management Medication Management Caregiver Administers Money Management Money Management Caregiver Provides Assistance Meal Preparation Meal Preparation Caregiver Provides Assist Marketing Officer Marketing Officer Caregiver Provides Assist Driving Driving Caregiver Provides Assist M6 OT- IP Functional Cognition Start: 12/18/23 17:04 Freq: Status: Active Protocol: Document 12/19/23 11:50 [facility] (Rec: 12/19/23 12:22 [facility] [id number]) Cognitive Factors Limiting Selfcare Function Cognitive Ability Level of Alertness Confusional State Attention Span Ability Unable to Focus,Unable to Sustain Attention Ability to Follow Commands Able to Follow One Step Commands with Increased Time, Able to Follow One Step Commands with Repetition Cognitive Comments Cognitive Assessment Comments Pt perseverating on going home and insisting that he that his sons and will be able to care for him. Pt today more distracted and focused on going home and insists that he will be fine. Tried to explain to pt of why therapists seeing him. M7 OT- IP Mobility and Balance Start: 12/18/23 17:04 Freq: Status: Active Protocol: Document 12/19/23 11:50 [facility] (Rec: 12/19/23 12:22 [facility] [id number]) OT- Bed Mobility Assessment Supine to Sit Supine to Sit Assist Moderate Assistance,2 Person Assistance Sit to Supine Sit to Supine Assist Moderate Assistance,2 Person Assistance OT-Transfer Assessment Sit to and From Stand Sit to and from Stand Moderate Assistance,2 Person Assistance Comments Mobility Comments MODA x2 to get up, heavy use of green pad to roll to the side and assist to get his trunk upright. MODAX 2 to stand to the FWW. BP supine 134/86 and sitting dropped to 91/62 and eventually increased to 126/89 and requesting to lie back down. OT- Balance Assessment Sitting Balance and Reactions Static Sitting Balance Ability Fair Dynamic Sitting Balance Ability Fair Standing Balance and Reactions Static Standing Balance Ability Poor Dynamic Standing Balance Ability Poor M8 OT- IP Objective Assessments Start: 12/18/23 17:04 Freq: Status: Active Protocol: Document 12/18/23 16:50 [facility] (Rec: 12/18/23 17:19 [facility] [id number]) OT Gross Range of Motion Upper Extremity Range of Motion Assessment Within Functional Limits OT Strength Comments Strength Comments At least 4-/5 OT- Coordination Assessment Upper Extremity Finger to Nose Test Within Functional Limits M9 OT- IP Assessment and Plan Start: 12/18/23 17:04 Freq: Status: Active Protocol: Document 12/19/23 11:50 [facility] (Rec: 12/19/23 12:22 [facility] [id number]) OT Summary Assessment and Plan Potential Rehabilitation Potential Fair Analytic Complexity at Evaluation High Summary OT Impairments Pain,Strength,Balance, Functional Cognition, Functional Mobility,Self- Feeding,Grooming,Dressing, Toileting,Bathing,Toilet Transfers,Shower Transfers, Activity Tolerance Progress Towards Goals Slow Progress due to Pain,Slow Progress due to Medical Issues,Slow Progress due to Activity Tolerance,Slow Progress due to Cognition Assessment Summary Pt perseverating on going home and not wanting or understanding why being seen for therapy , even though explaining to the pt. Pt's confusion is increased from yesterday. Pt able to move with MOD Ax2 for bed mobility needs and coming to stand. Pt will benefit from skilled rehab. Goals Self-Feeding Goal Independent Grooming Goal Independent Dressing Goal Minimal Assistance Toileting Goal Minimal Assistance Bathing Goal Moderate Assistance Toilet Transfer Goal Contact Guard Assistance Shower Transfer Goal Minimal Assistance Days to Meet Goals 25 Frequency of Treatment Other frequency 5x/week Discharge Recommendations OT Discharge Recommendations SNF Rehab Transportation Needs at Discharge Wheelchair/Cabulance
--- NOTE | 2023-12-19 13:11 | DIET.PN1 ---
Dietary Progress Note Assessment: K+ low. Discussed with pharmacy. Plan to replete, re-assess K+, and advance TPN to 1 L if K+ within normal limits. Interventions: 1. Updated weight in chart, EER calculated. TPN plan is as follows: Today- 1 L Clinimix 5/20 at 42 mL/hr Tomorrow 12/19- As tolerated advance to 1.5 L Clinimix 5/20 at 62 mL/hr Wednesday 12/20- As tolerated advance to goal rate of 2 L Clinimix 5/20 at 82 mL/L with 250 mL IVFE 3x/wk Goal rate + lipids meets 1974 kcals (90% EER) and 100 g protein (91% EER). 2. Recc monitoring phos, Mg, K+ for first 3 days of TPN. Pharmacy to replete per protocol. EER: 1650-0009 kcal/kg (22 kcals/kg per sepsis w/ BMI <30 compared with MSJ x1.3) 110-135 g protein (1.2-1.5 g/kg of adjusted IBW per sepsis) Monitoring/Evaluations: TPN rate, labs Ht: 190.5 cm Wt: 104.326 kg BMI: 28.7 UBW: 103.929 kg on 08/28/23 Last BM: 12/09/23 (12/12/23 12:11) MNA: 13 Mook Score: 15 Diet: 12/16/23 13:42 NPO Diet Diet Modifications: ice chips ok NPO Type: NPO except for Meds Labs: RBC 5.02 X10^6/uL (4.5-5.9) 12/19/23 04:35 Hgb 14.5 g/dL (13.5-17.5) 12/19/23 04:35 Hct 44.3 % (41-53) 12/19/23 04:35 Creatinine 0.70 mg/dL (0.66-1.25) 12/19/23 04:35 Lactate 1.7 mmol/L (0.7-2.1) 12/14/23 12:15 NT-Pro-B Natriuret Pep 408 pg/mL (<125) H 12/16/23 04:35 Electronically Signed by: Taya Crowley 12/19/23 13:[address] [id number]
[2023-12-19 15:55] LABS: HEMOLYSIS < 15 (0-50); Magnesium 2.4 mg/dL (1.6-2.3); Potassium 3.3 mmol/L (3.4-5.1); Triglycerides 213 mg/dL (35-150)
--- NOTE | 2023-12-19 16:05 | PM.PN.1 ---
Subjective Subjective Date Patient Seen: 12/19/23 Time Patient Seen: 16:06 Interval history: Feeling better today. Still no flatus. Exam Vital Signs (past 8 hours): - 12/19/23 09:40 12/19/23 09:56 12/19/23 12:00 Temperature 98.7 F Pulse Rate 95 H 110 H Respiratory Rate 16 19 Blood Pressure 132/60 128/69 Pulse Oximetry 96 95 Oxygen Delivery Method High Flow Nasal Cannula Oxygen Flow Rate 3 Fraction of Inspired Oxygen 80 SaO2/FiO2 Ratio 120 Oxygen Delivery Method High Flow Nasal Cannula Oxygen Flow Rate 3 Narrative Exam Narrative: Abdomen is soft Objective Labs 12/19/23 04:35 12/19/23 15:15 Labs: Laboratory Results - last 24 hr 12/19/23 12/19/23 04:35 15:15 WBC 11.3 H RBC 5.02 Hgb 14.5 Hct 44.3 MCV 88.1 MCH 28.9 MCHC 32.8 RDW 13.5 Plt Count 371 Neut % (Auto) 77.5 H Lymph % (Auto) 10.8 L [place] % (Auto) 7.8 Eos % (Auto) 3.2 Baso % (Auto) 0.7 Neut # (Auto) 8700 H Lymph # (Auto) 1200 [place] # (Auto) 900 Eos # (Auto) 400 Baso # (Auto) 100 Sodium 133 L Potassium 2.9 L 3.3 L Chloride 91 L Carbon Dioxide 36 H BUN 31 H Creatinine 0.70 Estimated GFR > 60 BUN/Creatinine Ratio 44.3 H Glucose 140 H Calcium 7.9 L Phosphorus 3.2 Magnesium 2.4 H Total Bilirubin 0.6 AST 44 ALT 28 Alkaline Phosphatase 57 Total Protein 5.8 L Albumin 3.0 L Globulin 2.8 Albumin/Globulin Ratio 1.1 Triglycerides 213 H [facility] Medical History Influenza A Anesthesia Gait instability 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 Bleeding from ear 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) Congestive heart failure Coronary artery aneurysm Pure hypercholesterolemia (07/30/16) Hypogonadism in male (04/23/16) Essential hypertension (04/23/16) Surgical History H/O surgical amputation of finger H/O vasectomy Hx of tonsillectomy Family History Father Heart attack Mother Dementia Sister Cancer Social History household members: spouse and family Smoking Status: Never smoker alcohol intake: former substance use type: does not use Assessment & Plan Assessment and plan (1) Postoperative examination: Status: Acute Plan Advance diet once he started to pass flatus Time-Based Coding :: [TOTAL MINUTES] spent with patient and on the chart (including review of chart, obtaining history, exam, reviewing outside data, placing orders, documenting exam and treatment plan, and counseling patient) on [DATE].
[2023-12-19] MEDS: FAT EMULSIONS 50 GM/250 ML EMULSION IV (17:28)
[2023-12-19] MEDS: AA 5 %/CALCIUM/LYTES/DEXT 20 % 1,000 ML with MULTIVITAMIN 10 ML, TRACE ELEMENTS 1 ML, T... 43.083 ML IV (17:28)
[2023-12-19] MEDS: FLUCONAZOLE 400 MG/200 ML PIGGYBACK 100 MG IV (20:24)
[2023-12-19] MEDS: TRAZODONE 50 MG TABLET 100 MG PO (22:48)
[2023-12-20] VITALS (8 sets, daily range): BP systolic 114–132; BP diastolic 72–90; PULSE 82–102; RESP 16–19; TEMP 36.1–36.6; O2SAT 94–96
--- NOTE | 2023-12-20 00:19 | PC.NURSE ---
Per report from day shift RN- Last bag of potassium completed.
[2023-12-20] MEDS: ERYTHROMYCIN BASE 250 MG TABLET PO ×4 (02:34→21:04)
[2023-12-20] MEDS: MEROPENEM 2 GM in SODIUM CHLORIDE 0.9% 100 ML IV ×3 (04:25→22:41)
[2023-12-20 05:14] LABS: Alanine Aminotransferase 29 IU/L (<50); Albumin Globulin Ratio 1.1 (1.0-2.8); Alkaline Phosphatase 54 U/L (38-126); Aspartate Aminotransferase 42 IU/L (17-59); BUN Creatinine Ratio 42.4 (6-22); Bilirubin Total 0.5 mg/dL (0.2-1.3); Blood Urea Nitrogen 28 mg/dL (9-20); Calcium 7.9 mg/dL (8.4-10.2); Carbon Dioxide 34 mmol/L (22-32); Chloride 94 mmol/L (98-107); Estimated Glomerular Filt Rate > 60 mL/min (>60); Globulin 2.7 g/dL (1.7-4.1); Glucose 138 mg/dL (80-110); HEMOLYSIS < 15 (0-50); Magnesium 2.3 mg/dL (1.6-2.3); Phosphorous 3.3 mg/dL (2.3-3.7); Potassium 3.2 mmol/L (3.4-5.1); Sodium 132 mmol/L (137-145); Total Protein 5.7 g/dL (6.3-8.2)
[2023-12-20] MEDS: METOPROLOL ER 25 MG TABLET PO (09:13)
[2023-12-20] MEDS: CITALOPRAM 10 MG TABLET 20 MG PO (09:13)
[2023-12-20] MEDS: lisinopriL 20 MG TABLET PO (09:14)
[2023-12-20] MEDS: DULOXETINE 30 MG CAPSULE 60 MG PO (09:14)
[2023-12-20] MEDS: ENOXAPARIN 40 MG/0.4 ML SYRINGE SUBCUT (09:15)
[2023-12-20] MEDS: FUROSEMIDE 40 MG/4 ML VIAL IV (09:15)
[2023-12-20] MEDS: fentaNYL 25 MCG/PATCH TOP (09:35)
[2023-12-20] MEDS: CELECOXIB 200 MG CAPSULE PO ×2 (09:36→21:01)
[2023-12-20] MEDS: POTASSIUM CHLORIDE IN WATER 10 MEQ/100 ML PIGGYBACK 100 MEQ IV ×5 (09:40→17:32)
--- NOTE | 2023-12-20 10:15 | PM.PN.1 ---
Subjective Subjective Date Patient Seen: 12/20/23 Time Patient Seen: 10:16 Exam Vital Signs (past 8 hours): - 12/20/23 05:08 12/20/23 08:00 12/20/23 09:13 Temperature 97.0 F L 97.7 F Pulse Rate 82 96 H 96 H Respiratory Rate 16 18 Blood Pressure 114/72 132/87 132/87 Pulse Oximetry 95 96 Oxygen Flow Rate 0 12/20/23 09:14 Temperature Pulse Rate 96 H Respiratory Rate Blood Pressure 132/87 Pulse Oximetry Oxygen Flow Rate Fraction of Inspired Oxygen 32 SaO2/FiO2 Ratio 290 Oxygen Delivery Method Nasal Cannula Oxygen Flow Rate 0 Narrative Exam Narrative: POD# 8 lleocecectomy, for necrotic appendicitis, Feels MUCH BETTER, passed gas with me in his room, just now, WILL advance diet to full liquids, and Protein shakes TID, and advance his diet tomorrow, IF he has a BM. 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 Bleeding from ear 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) Congestive heart failure Coronary artery aneurysm Pure hypercholesterolemia (07/30/16) Hypogonadism in male (04/23/16) Essential hypertension (04/23/16) Surgical History H/O surgical amputation of finger H/O vasectomy Hx of tonsillectomy Family History Father Heart attack Mother Dementia Sister Cancer Social History household members: spouse and family Smoking Status: Never smoker alcohol intake: former substance use type: does not use Assessment & Plan Time-Based Coding :: [TOTAL MINUTES] spent with patient and on the chart (including review of chart, obtaining history, exam, reviewing outside data, placing orders, documenting exam and treatment plan, and counseling patient) on [DATE].
[2023-12-20] MEDS: INSULIN LISPRO 100 UNIT/ML 3ML VIAL SUBCUT (12:39)
--- NOTE | 2023-12-20 14:53 | PT.IPTN ---
Current Diagnoses Unspecified acute appendicitis (12/12/23) Encounter for follow-up examination after completed treatment for conditions other than malignant neoplasm (12/12/23) Surgery Performed Operation Date: 12/12/23 15:30 Actual Procedures p Laparotomy Ileocecectomy - Jorge Polanco MD Physical Therapy Treatment Note M2 PT-IP Current Condition Start: 12/14/23 06:44 Freq: NEEDED Status: Active Protocol: Document 12/18/23 12:27 MB (Rec: 12/18/23 13:18 MB [id number]) Physical Therapy Current Condition Current Condition Evaluation Date 12/18/23 Treatment Diagnosis Weakness, infected appendix s/ p surgery, sepsis, respiratory failure M3 PT-IP Subjective Start: 12/14/23 06:44 Freq: NEEDED Status: Active Protocol: Document 12/20/23 15:31 TS (Rec: 12/20/23 15:45 TS [id number]) Subjective Physical Therapy Visit Type Type Treatment Note Visit Start Time 14:53 Visit Stop Time 15:25 Notes spouse and son in room Number of NITROGEN OPERATOR Visits 2 Physical Therapy Visit Comments Patient Comments Pt is somewhat confused, reports not having much pain, he is agreeable to PT. spouse reports she has to work next week and son is in school. At end of session pt agreed to go to SNF. M4 PT-IP Mobility and Gait Start: 12/14/23 06:44 Freq: NEEDED Status: Active Protocol: Document 12/20/23 15:31 TS (Rec: 12/20/23 15:45 TS [id number]) PT-Bed Mobility Assessment Supine to Sit Supine to Sit Contact Guard Assistance,1 Person Assistance,Head of Bed Elevated,Bedrails Sit to Supine Sit to Supine Contact Guard Assistance Scooting Scooting to Edge of Bed Contact Guard Assistance Scooting Up and Down in Bed Standby Assistance PT-Transfer Assessment Sit to and From Stand Sit to and from Stand Maximum Assistance,1 Person Assistance Equipment Transfer Assistive Device Gait Belt,Front Wheeled Walker Orthotic/Prosthetic Devices or Brace: No Comments Mobility Comments Supine to sit CGA, pt requires max cueing and is easily distracted. Pt scoots to bed with some diffiuclty, feeling stuck to bed. STS with FWW x2 with MaxA x1. Pt does not come fully into standing and has a posterior lean. Sit to supine into bed SBA. He remains a william lift at this time. Gait Assessment Comments Gait Comments unable PT-Balance Assessment Sitting Balance and Reactions Static Sitting Balance Ability Good Dynamic Sitting Balance Ability Fair Standing Balance and Reactions Static Standing Balance Ability Poor Dynamic Standing Balance Ability Poor Device Used FWW M5 PT-IP Objective Assessments Start: 12/14/23 06:44 Freq: NEEDED Status: Active Protocol: Document 12/18/23 12:27 MB (Rec: 12/18/23 13:18 MB [id number]) Orientation Orientation/Cognition Level of Alertness Confusional State Orientation Name,Age,Birthday,Month,Year, Place Language Function Ability No Deficits Noted Safety Awareness Decreased Safety Awareness Comments PT with acute encephalopathy, likely d/t infection and ICU stay, does make good effort with therapy and anticipate ongoing improvements Gross Range of Motion Upper Extremity ROM Impairments Defer to OT Lower Extremity ROM Assessment Within Functional Limits Strength Lower Extremity Strength Knee B knee extension 4/5 Ankle B ankle DF 4+/5; right great toe extension 5/5 and left great toe 4/5 Comments Strength Comments Pt is functionally weak with attempted standing and this might be d/t fear and/or cardiopulomary presentation, strong posterior lean Coordination Assessment Gross Coordination Gross Coordination Impaired Assessment Coordination Comments Pt cannot follow commands. Missing finger left hand. Sensation Assessment Comments Sensation Comments Pt does not follow commands. M6 PT-IP Treatment Start: 12/14/23 06:44 Freq: NEEDED Status: Active Protocol: Document 12/20/23 15:31 TS (Rec: 12/20/23 15:45 TS [id number]) Physical Therapy Treatment Education Education Provided Precautions,Safety M7 PT-IP Assessment and Plan Start: 12/14/23 06:44 Freq: NEEDED Status: Active Protocol: Document 12/20/23 15:31 TS (Rec: 12/20/23 15:45 TS [id number]) PT Summary Assessment and Plan Potential Rehabilitation Potential Fair Summary Impairments Pain,ROM,Strength,Balance, Coordination,Cognition,Bed Mobility,Transfers,Gait, Activity Tolerance Progress Towards Goals Slow Progress due to Medical Issues,Slow Progress - Other Assessment Summary Jamal continues to make slow progress with his mobility. He performs bed mobility well with cues. He continues to not be able to stand at this time , his legs remain weak. Pt did agree to SNF and family is supportive of this. PT will continue to recommend SNF at this time. Goals Bed Mobility Goal Independent Transfer Goal Standby Assistance,Front Wheeled Walker Gait Goal Standby Assistance,Front Wheel Walker Gait Distance 75 Other Goals Pt will ascend and descend two steps with no more than FIELD ADMINISTRATIVE ASSISTANT to allow safe home entrance. Days to Meet Goals 10 Frequency of Treatment Frequency Of Treatment Once a Day Treatment Plan Physical Therapy Treatment Plan Bed Mobility Training,Transfer Training,Gait Training, Therapeutic Exercise,Balance Retraining,Post Op Education, Discharge Planning,Hot or Cold Pack,Neuromuscular Re-ed, Coordination Retraining,Manual Therapy Precautions Abdominal Surgery Precautions Log Roll,Lifting Restrictions, Gait Belt above Incisional Area Other Precautions Pt is aware of log rolling from previous back surgery Recommendations To Nursing Amount of Assist Needed Mechanical Lift Discharge Recommendations PT Discharge Recommendations SNF Rehab Transportation Needs at Discharge Wheelchair/Cabulance
--- NOTE | 2023-12-20 15:37 | P.PN_ITS ---
Subjective Subjective Date Patient Seen: 12/20/23 Time Patient Seen: 09:15 Interval history: 68 M admitted with perforated appendicitis. NG tube placed yesterday. Appreciate surgical management yesterday. approx 3L out via NG tube since placement. He feels improved without reported pain. Discussed with surgeon, given persistent tachycardia trial fentanyl patch for pain control at this time. Patient is clinically improved. WBC improved today, surgeon did start fluconazole yesterday. Will start TPN given unclear how long patient will be NPO at this point. Interval history: He is feeling better. He has not passed flatus. He appears mildly confused and rambling at times. Exam Vital Signs (past 8 hours): - 12/20/23 08:00 12/20/23 09:13 12/20/23 09:14 Temperature 97.7 F Pulse Rate 96 H 96 H 96 H Respiratory Rate 18 Blood Pressure 132/87 132/87 132/87 Pulse Oximetry 96 12/20/23 10:30 12/20/23 12:00 Temperature 97.8 F Pulse Rate 94 H Respiratory Rate 17 Blood Pressure 128/72 129/90 Pulse Oximetry 95 Fraction of Inspired Oxygen 32 SaO2/FiO2 Ratio 290 Oxygen Delivery Method Nasal Cannula Oxygen Flow Rate 0 Narrative Exam Narrative: GEN: Comp, sitting up in chair, appears comfortable. HEENT: NC, Face symmetric CHEST: Decreased breath sounds bilateral bases otherwise clear to auscultation. CV: Regular rate and rhythm without murmurs. ABD: Soft, nontender, nondistended, bowel tones present in upper abdomen, KIRSTEN draining serosanguineous fluid EXTR: No edema. SKIN: warm and dry, no rash NEURO: Alert and oriented x3, nonfocal exam, bilateral hand tremors are minimal Objective Labs 12/19/23 04:35 12/20/23 04:12 Labs: Laboratory Results - last 24 hr 12/19/23 12/20/23 15:15 04:12 Sodium 132 L Potassium 3.3 L 3.2 L Chloride 94 L Carbon Dioxide 34 H BUN 28 H Creatinine 0.66 Estimated GFR > 60 BUN/Creatinine Ratio 42.4 H Glucose 138 H Calcium 7.9 L Phosphorus 3.3 Magnesium 2.4 H 2.3 Total Bilirubin 0.5 AST 42 ALT 29 Alkaline Phosphatase 54 Total Protein 5.7 L Albumin 3.0 L Globulin 2.7 Albumin/Globulin Ratio 1.1 Triglycerides 213 H [facility] Medical History Influenza A Anesthesia Gait instability 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 S/p ileocecectomy for acute ruptured gangrenous appendicitis 12/12/2023, complicated by possible intra-abdominal abscess and post operative ileus - Continue meropenem therapy. Fluconazole added 12/15. MRSA swab was negative. KIRSTEN drainage appears serosanguineous without purulence. Ongoing management per General surgery. - NG tube placed 12/16 and removed on 12/17 - PICC line placed and TPN started 12/17/2023. - hopefully wean off TPN soon as diet advances per surgery 2. Sepsis with acute hypoxic respiratory failure, hyperbilirubinema secondary to #1 above, resolved -secondary to ruptured appendicitis. He remains tachycardic. Lactate remains within normal limits at 1.7 today. White blood cell count is stable today at 15. -hypoxemia resolved 12/19/2023, off oxygen -likely due in part now to combination of abdominal distension, ileus 3. Acute hypoxic respiratory failure, resolved -resolved, likely due to volume overload/pulmonary edema but also possible sepsis and abdominal distension contributing today. 4. Acute on chronic CHFrEF TTE with EF 30-35%, apparently chronic after discussing with educational/development assistant yesterday. Recommended outpatient ischemic evaluation given wall motion abnormalities. -continue lisinopril, continue home beta nadeen metoprolol 25 mg daily -continue furosemide 40 mg IV daily. 5. Hyponatremia Resolved. 6. Hypokalemia. replete intravenously 7. Hypertension Will continue monitoring closely. Improved with diuresis and resumption of home medications. 8. Chronic low back pain with baseline gait impairment and chronic lower extremity weakness Start physical therapy Code status Full DVT prophylaxis Lovenox Disposition Home vs SNF, but still likely a few days away from PT/OT at this time. Time-Based Coding :: [TOTAL MINUTES] spent with patient and on the chart (including review of chart, obtaining history, exam, reviewing outside data, placing orders, documenting exam and treatment plan, and counseling patient) on [DATE]. PROFEE Charge codes Subsequent inpatient/observation care: 92332
--- NOTE | 2023-12-20 15:57 | CM.DPNOTE ---
DCP Note ELECTRICAL AND INSTRUMENT MECHANIC reviewed EMR Per provider in morning rounds, weaning off TPN as diet continues to advance. still a few days from being stable to DC. Still a tad confused at times, remains on IV abx. Mentation improving each day. Per August at , limited bed availability. will continue to review over course of next few days. Per FITNESS INSTRUCTOR Chucho, pt now agreeable to SNF. FITNESS INSTRUCTOR Chucho reports pt really really needs SNF. Per Bebe at [facility], can accept. P: medical POC continues to unfold. SNF vs . reviewing, may need another referral if no beds... [facility] and/or f2f needed. CM team will continue to follow closely. ALBINO Forrester
[2023-12-20] MEDS: FAT EMULSIONS 50 GM/250 ML EMULSION IV ×2 (17:34→17:42)
[2023-12-20] MEDS: AA 5 %/CALCIUM/LYTES/DEXT 20 % 1,500 ML with MULTIVITAMIN 10 ML, TRACE ELEMENTS 1 ML, T... 64.333 ML IV (17:34)
--- NOTE | 2023-12-20 18:30 | PC.NURSE ---
Addendum entered by Sylvie Casiano R.N. 12/20/23 18:37: Pt midline incision radames CDI. KIRSTEN intact/patent. Original Note: Pt condition remains essentially unchanged, Occassionally some forgetfullness.quickly reorients Receiving IV ABO< AKC and ^TPN and lipids PICC intact/patent. KIRSTEN intact/patent. Denies any disconmfort Call light w/in reach, bed alarm on for pt safety. Continue w/plan of care.
[2023-12-20] MEDS: FLUCONAZOLE 400 MG/200 ML PIGGYBACK 100 MG IV (20:18)
[2023-12-20] MEDS: TRAZODONE 50 MG TABLET 100 MG PO (21:00)
[2023-12-21] VITALS (7 sets, daily range): BP systolic 114–144; BP diastolic 85–98; PULSE 84–117; RESP 14–18; TEMP 36.1–36.5; O2SAT 91–97
[2023-12-21] MEDS: INSULIN LISPRO 100 UNIT/ML 3ML VIAL SUBCUT ×3 (00:43→12:25)
[2023-12-21] MEDS: ERYTHROMYCIN BASE 250 MG TABLET PO (02:00)
[2023-12-21 05:13] LABS: BUN Creatinine Ratio 36.1 (6-22); Blood Urea Nitrogen 26 mg/dL (9-20); Calcium 8.3 mg/dL (8.4-10.2); Carbon Dioxide 34 mmol/L (22-32); Chloride 95 mmol/L (98-107); Estimated Glomerular Filt Rate > 60 mL/min (>60); Glucose 125 mg/dL (80-110); HEMOLYSIS < 15 (0-50); Sodium 132 mmol/L (137-145)
[2023-12-21] MEDS: MEROPENEM 2 GM in SODIUM CHLORIDE 0.9% 100 ML IV ×3 (05:32→22:46)
--- NOTE | 2023-12-21 05:32 | PC.NURSE ---
Miropenum re-timed to admininster at 22:00 on 12/19. Medication given as ordered.
--- NOTE | 2023-12-21 09:36 | P.PN_ITS ---
Subjective Subjective Date Patient Seen: 12/21/23 Time Patient Seen: 09:15 Interval history: 68 M admitted with perforated appendicitis. NG tube placed yesterday. Appreciate surgical management yesterday. approx 3L out via NG tube since placement. He feels improved without reported pain. Discussed with surgeon, given persistent tachycardia trial fentanyl patch for pain control at this time. Patient is clinically improved. WBC improved today, surgeon did start fluconazole yesterday. Will start TPN given unclear how long patient will be NPO at this point. Interval history: He is feeling better and started passing flatus yesterday, appears alert, oriented. He is looking forward to discharge to SNF. Exam Vital Signs (past 8 hours): - 12/21/23 08:00 Temperature 97.6 F Pulse Rate 96 H Respiratory Rate 16 Blood Pressure 128/85 Pulse Oximetry 91 Oxygen Flow Rate 0 Fraction of Inspired Oxygen 32 SaO2/FiO2 Ratio 290 Oxygen Delivery Method Nasal Cannula Oxygen Flow Rate 0 Narrative Exam Narrative: GEN: Comp, sitting up in chair, appears comfortable. HEENT: NC, Face symmetric CHEST: Decreased breath sounds bilateral bases otherwise clear to auscultation. CV: Regular rate and rhythm without murmurs. ABD: Soft, nontender, nondistended, bowel tones present in upper abdomen, KIRSTEN draining serosanguineous fluid EXTR: No edema. 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 S/p ileocecectomy for acute ruptured gangrenous appendicitis 12/12/2023, complicated by possible intra-abdominal abscess and post operative ileus - Doing well with diet advancing. - Continue meropenem therapy. Fluconazole added 12/15. MRSA swab was negative. KIRSTEN drainage appears serosanguineous without purulence. Ongoing management per General surgery. - NG tube placed 12/16 and removed on 12/17 - PICC line placed and TPN started 12/17/2023. - hopefully wean off TPN soon as diet advances per surgery, then he can be discharged to SNF, hopefully tomorrow. 2. Sepsis with acute hypoxic respiratory failure, hyperbilirubinema secondary to #1 above, resolved -secondary to ruptured appendicitis. He remains tachycardic. Lactate remains within normal limits at 1.7 today. White blood cell count is stable today at 15. -hypoxemia resolved 12/19/2023, off oxygen -likely due in part now to combination of abdominal distension, ileus 3. Acute hypoxic respiratory failure, resolved -resolved, likely due to volume overload/pulmonary edema but also possible sepsis and abdominal distension contributing today. 4. Acute on chronic CHFrEF TTE with EF 30-35%, apparently chronic after discussing with satellite television installer yesterday. Recommended outpatient ischemic evaluation given wall motion abnormalities. -continue lisinopril, continue home beta nadeen metoprolol 25 mg daily -continue furosemide 40 mg IV daily, transition to home a hydrochlorothiazide at discharge. 5. Hyponatremia -Resolved. 6. Hypokalemia. -corrected 7. Hypertension -adequately controlled on home medications. 8. Chronic low back pain with baseline gait impairment and chronic lower extremity weakness Continue physical therapy Code status Full DVT prophylaxis Lovenox Disposition Anticipate SNF placement when off TPN and cleared by surgery. Time-Based Coding :: [TOTAL MINUTES] spent with patient and on the chart (including review of chart, obtaining history, exam, reviewing outside data, placing orders, documenting exam and treatment plan, and counseling patient) on [DATE]. PROFEE Charge codes Subsequent inpatient/observation care: [id number]
[2023-12-21] MEDS: CELECOXIB 200 MG CAPSULE PO ×2 (09:39→20:04)
[2023-12-21] MEDS: lisinopriL 20 MG TABLET PO (09:40)
[2023-12-21] MEDS: CITALOPRAM 10 MG TABLET 20 MG PO (09:40)
[2023-12-21] MEDS: DULOXETINE 30 MG CAPSULE 60 MG PO (09:40)
[2023-12-21] MEDS: ENOXAPARIN 40 MG/0.4 ML SYRINGE SUBCUT (09:40)
[2023-12-21] MEDS: METOPROLOL ER 25 MG TABLET PO (09:40)
[2023-12-21] MEDS: FUROSEMIDE 40 MG/4 ML VIAL IV (09:40)
--- NOTE | 2023-12-21 09:57 | PM.PNPO.1 ---
Exam Vital Signs (past 8 hours): - 12/21/23 08:00 12/21/23 09:40 12/21/23 09:40 Temperature 97.6 F Pulse Rate 96 H 96 H 96 H Respiratory Rate 16 Blood Pressure 128/85 128/85 128/85 Pulse Oximetry 91 Oxygen Flow Rate 0 Fraction of Inspired Oxygen 32 SaO2/FiO2 Ratio 290 Oxygen Delivery Method Nasal Cannula Oxygen Flow Rate 0 Objective Labs 12/19/23 04:35 12/21/23 04:11 Labs: Laboratory Results - last 24 hr 12/21/23 04:11 Sodium 132 L Potassium 4.0 Chloride 95 L Carbon Dioxide 34 H BUN 26 H Creatinine 0.72 Estimated GFR > 60 BUN/Creatinine Ratio 36.1 H Glucose 125 H Calcium 8.3 L PFSH Medical History Influenza A Anesthesia Gait instability 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 Bleeding from ear 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) Congestive heart failure Coronary artery aneurysm Pure hypercholesterolemia (07/30/16) Hypogonadism in male (04/23/16) Essential hypertension (04/23/16) Surgical History H/O surgical amputation of finger H/O vasectomy Hx of tonsillectomy Family History Father Heart attack Mother Dementia Sister Cancer Social History household members: spouse and family Smoking Status: Never smoker alcohol intake: former substance use type: does not use Assessment & Plan Post-op Postoperative Procedures: Procedures Operation Date: 12/12/23 15:30 Actual Procedure Side Surgeon p Laparotomy Ileocecectomy Jorge Polanco MD POD# 9 lleocecectomy, for necrotic appendicitis, Feels MUCH BETTER, passed gas yesterday, and advanced diet to full liquids, and Protein shakes TID, and advance his diet SOON as he has a BM.
--- NOTE | 2023-12-21 11:58 | PT.IPTN ---
Current Diagnoses Unspecified acute appendicitis (12/12/23) Encounter for follow-up examination after completed treatment for conditions other than malignant neoplasm (12/12/23) Surgery Performed Operation Date: 12/12/23 15:30 Actual Procedures p Laparotomy Ileocecectomy - Jorge Polanco MD Physical Therapy Treatment Note M2 PT-IP Current Condition Start: 12/14/23 06:44 Freq: NEEDED Status: Active Protocol: Document 12/18/23 12:27 MB (Rec: 12/18/23 13:18 MB [id number]) Physical Therapy Current Condition Current Condition Evaluation Date 12/18/23 Treatment Diagnosis Weakness, infected appendix s/ p surgery, sepsis, respiratory failure M3 PT-IP Subjective Start: 12/14/23 06:44 Freq: NEEDED Status: Active Protocol: Document 12/21/23 11:20 MB (Rec: 12/21/23 11:58 MB [id number]) Subjective Physical Therapy Visit Type Type Treatment Note Visit Start Time 11:20 Visit Stop Time 11:45 Number of DIGITAL SALES MANAGER Visits 0 Physical Therapy Visit Comments Patient Comments Pt con't with confusion but he is very participatory with PT . Pt pleasant and wishing to perform all cues provided by PT. M4 PT-IP Mobility and Gait Start: 12/14/23 06:44 Freq: NEEDED Status: Active Protocol: Document 12/21/23 11:20 MB (Rec: 12/21/23 11:58 MB [id number]) PT-Bed Mobility Assessment Rolling Type of Rolling Roll to Left Level of Assist Standby Assistance,1 Person Assistance Supine to Sit Supine to Sit Standby Assistance,1 Person Assistance,Head of Bed Elevated,Bedrails Sit to Supine Sit to Supine Contact Guard Assistance, Bedrails Scooting Scooting to Edge of Bed Contact Guard Assistance Scooting Up and Down in Bed Contact Guard Assistance PT-Transfer Assessment Comments Mobility Comments Pt requires cues for all mobility tasks and to con't with task once started. Once EOB, HR steadily increases with sitting 10' and remaining 122-128 BPM despite sitting statically and performing pursed lip-breathing and no other actively. O2 sats drop briefly on RA and settle in the low to mid 90s. HR initially upon sitting was below 100 BPM. Pt has trouble following commands for log rolling, bending knees, scooting over in bed. PT leaves pt in cardiac chair position with needs in reach. Recommend up to chair with nsg . PT-Balance Assessment Sitting Balance and Reactions Static Sitting Balance Ability Good Dynamic Sitting Balance Ability Fair M5 PT-IP Objective Assessments Start: 12/14/23 06:44 Freq: NEEDED Status: Active Protocol: Document 12/18/23 12:27 MB (Rec: 12/18/23 13:18 MB [id number]) Orientation Orientation/Cognition Level of Alertness Confusional State Orientation Name,Age,Birthday,Month,Year, Place Language Function Ability No Deficits Noted Safety Awareness Decreased Safety Awareness Comments PT with acute encephalopathy, likely d/t infection and ICU stay, does make good effort with therapy and anticipate ongoing improvements Gross Range of Motion Upper Extremity ROM Impairments Defer to OT Lower Extremity ROM Assessment Within Functional Limits Strength Lower Extremity Strength Knee B knee extension 4/5 Ankle B ankle DF 4+/5; right great toe extension 5/5 and left great toe 4/5 Comments Strength Comments Pt is functionally weak with attempted standing and this might be d/t fear and/or cardiopulomary presentation, strong posterior lean Coordination Assessment Gross Coordination Gross Coordination Impaired Assessment Coordination Comments Pt cannot follow commands. Missing finger left hand. Sensation Assessment Comments Sensation Comments Pt does not follow commands. M6 PT-IP Treatment Start: 12/14/23 06:44 Freq: NEEDED Status: Active Protocol: Document 12/21/23 11:20 MB (Rec: 12/21/23 11:58 MB [id number]) Physical Therapy Treatment Exercises Exercises Ankle Pumps,Gluteal Sets,Quad Sets,Heel Slides Other Treatments Other Treatment Performed Attempted to re-ed pt in log rolling to protect abdomen but he cannot follow cues M7 PT-IP Assessment and Plan Start: 12/14/23 06:44 Freq: NEEDED Status: Active Protocol: Document 12/21/23 11:20 MB (Rec: 12/21/23 11:58 MB [id number]) PT Summary Assessment and Plan Potential Rehabilitation Potential Fair Status of Condition at Evaluation Evolving Summary Impairments Pain,ROM,Strength,Balance, Coordination,Cognition,Bed Mobility,Transfers,Gait, Activity Tolerance Progress Towards Goals Slow Progress due to Medical Issues,Slow Progress due to Activity Tolerance Assessment Summary Pt con't with increased HR once sitting today and HR remains 122-128 BPM with static sitting EOB despite no other cues except for gentle breathing. Standing and further mobility not progressed today as a result. Pt con't with pleasant confusion. Recommend OOB to chair via mechanical lift with nsg each day to monitor HR in sitting if he does not exert to get in that position. PT leaves pt in cardiac chair position in the bed. Pt is diaphoretic. Goals Bed Mobility Goal Independent Transfer Goal Standby Assistance,Front Wheeled Walker Gait Goal Standby Assistance,Front Wheel Walker Gait Distance 75 Other Goals Pt will ascend and descend two steps with no more than GERM DRIER to allow safe home entrance. Days to Meet Goals 10 Frequency of Treatment Frequency Of Treatment Once a Day Treatment Plan Physical Therapy Treatment Plan Bed Mobility Training,Transfer Training,Gait Training, Therapeutic Exercise,Balance Retraining,Post Op Education, Discharge Planning,Hot or Cold Pack,Neuromuscular Re-ed, Coordination Retraining,Manual Therapy Precautions Abdominal Surgery Precautions Log Roll,Lifting Restrictions, Gait Belt above Incisional Area Other Precautions Pt is aware of log rolling from previous back surgery Recommendations To Nursing Amount of Assist Needed Mechanical Lift Discharge Recommendations PT Discharge Recommendations SNF Rehab Transportation Needs at Discharge Wheelchair/Cabulance
--- NOTE | 2023-12-21 14:58 | CM.DPNOTE ---
DCP Note HAZARD MITIGATION OFFICER reviewed EMR. Per hospitalist/pharmacist/RN, stopping TPN today advancing diet. could potentially be ready for SNF Friday. HAZARD MITIGATION OFFICER spoke with August from , won't know about bed availability until tomorrow. f/u with Rhiannon in morning. P: SNF vs [facility]. limited bed availability, may need another referral... [facility] and/or f2f needed. if SNF, updated [facility]. update TCM team at [facility]. CM team will continue to follow closely. ALBINO Forrester
[2023-12-21] MEDS: ACETAMINOPHEN 325 MG TABLET 650 MG PO (15:56)
[2023-12-21] MEDS: TRAZODONE 50 MG TABLET 100 MG PO (20:04)
[2023-12-21] MEDS: FLUCONAZOLE 400 MG/200 ML PIGGYBACK 100 MG IV (20:04)
[2023-12-22 04:00] VITALS: BP 145/97; PULSE 92; RESP 16; TEMP 36.4; O2SAT 93
[2023-12-22 05:01] LABS: Triglycerides 214 mg/dL (35-150)
[2023-12-22] MEDS: MEROPENEM 2 GM in SODIUM CHLORIDE 0.9% 100 ML IV ×3 (05:02→23:07)
[2023-12-22] MEDS: CITALOPRAM 10 MG TABLET 20 MG PO (09:45)
[2023-12-22] MEDS: DULOXETINE 30 MG CAPSULE 60 MG PO (09:45)
[2023-12-22] MEDS: CELECOXIB 200 MG CAPSULE PO ×2 (09:45→20:20)
[2023-12-22] MEDS: FUROSEMIDE 40 MG/4 ML VIAL IV (09:45)
[2023-12-22] MEDS: ENOXAPARIN 40 MG/0.4 ML SYRINGE SUBCUT (09:45)
[2023-12-22 09:46] VITALS: BP 141/88; PULSE 104
[2023-12-22] MEDS: lisinopriL 20 MG TABLET PO (09:46)
[2023-12-22] MEDS: METOPROLOL ER 25 MG TABLET PO (09:46)
[2023-12-22 10:49] VITALS: TEMP 36.4; O2SAT 95
--- NOTE | 2023-12-22 10:56 | PT.IPTN ---
Current Diagnoses Unspecified acute appendicitis (12/12/23) Encounter for follow-up examination after completed treatment for conditions other than malignant neoplasm (12/12/23) Surgery Performed Operation Date: 12/12/23 15:30 Actual Procedures p Laparotomy Ileocecectomy - Jorge Polanco MD Physical Therapy Treatment Note M2 PT-IP Current Condition Start: 12/14/23 06:44 Freq: NEEDED Status: Active Protocol: Document 12/18/23 12:27 MB (Rec: 12/18/23 13:18 MB [id number]) Physical Therapy Current Condition Current Condition Evaluation Date 12/18/23 Treatment Diagnosis Weakness, infected appendix s/ p surgery, sepsis, respiratory failure M3 PT-IP Subjective Start: 12/14/23 06:44 Freq: NEEDED Status: Active Protocol: Document 12/22/23 10:20 MB (Rec: 12/22/23 10:56 MB [id number]) Subjective Physical Therapy Visit Type Type Treatment Note Visit Start Time 10:20 Visit Stop Time 10:45 Number of ASSISTANT PROFESSOR SCULPTURE Visits 0 Physical Therapy Visit Comments Patient Comments Pt sitting up in chair. He con 't to communicate that he is confused and he wants to communicate well so he can do everything he needs to do with PT. He states he got up with the lift machine because he is too weak to stand. Therapy Pain Assessment Pain When Pain Assessed At Rest Pain Present Pain Present Denied Pain M4 PT-IP Mobility and Gait Start: 12/14/23 06:44 Freq: NEEDED Status: Active Protocol: Document 12/22/23 10:20 MB (Rec: 12/22/23 10:56 MB [id number]) PT-Transfer Assessment Comments Mobility Comments Pt sitting with head supported on pillow and back of chair: head con't to drift to the right, despite cues and pt can correct in the moment and then head con't to fall to the right. Also, right arm with decreased awareness, falling off the side of the chair. PT attempts coordination and strength testing and pt has trouble following all commands and presents with globalized weakness. LEs are weaker proximally compared to distally. Right ankle edema greater than the left, B heel to davidson severly dysmetric and likely partially d/t proximal weakness. Left pronator drift with testing. O2 sats remain in the 90s on RA and HR is around 100 BPM and increases with minimal activity. Pt con' t with trouble with word- finding and he has confusion. Peripheral visual screen is negative (normal). PT-Balance Assessment Sitting Balance and Reactions Static Sitting Balance Ability Poor Dynamic Sitting Balance Ability Poor M5 PT-IP Objective Assessments Start: 12/14/23 06:44 Freq: NEEDED Status: Active Protocol: Document 12/18/23 12:27 MB (Rec: 12/18/23 13:18 MB [id number]) Orientation Orientation/Cognition Level of Alertness Confusional State Orientation Name,Age,Birthday,Month,Year, Place Language Function Ability No Deficits Noted Safety Awareness Decreased Safety Awareness Comments PT with acute encephalopathy, likely d/t infection and ICU stay, does make good effort with therapy and anticipate ongoing improvements Gross Range of Motion Upper Extremity ROM Impairments Defer to OT Lower Extremity ROM Assessment Within Functional Limits Strength Lower Extremity Strength Knee B knee extension 4/5 Ankle B ankle DF 4+/5; right great toe extension 5/5 and left great toe 4/5 Comments Strength Comments Pt is functionally weak with attempted standing and this might be d/t fear and/or cardiopulomary presentation, strong posterior lean Coordination Assessment Gross Coordination Gross Coordination Impaired Assessment Coordination Comments Pt cannot follow commands. Missing finger left hand. Sensation Assessment Comments Sensation Comments Pt does not follow commands. M6 PT-IP Treatment Start: 12/14/23 06:44 Freq: NEEDED Status: Active Protocol: Document 12/22/23 10:20 MB (Rec: 12/22/23 10:56 MB [id number]) Physical Therapy Treatment Exercises Exercises Ankle Pumps,Gluteal Sets,Quad Sets Other Treatments Other Treatment Performed Working on correcting head posture throughout treatment M7 PT-IP Assessment and Plan Start: 12/14/23 06:44 Freq: NEEDED Status: Active Protocol: Document 12/22/23 10:20 MB (Rec: 12/22/23 10:56 MB [id number]) PT Summary Assessment and Plan Potential Rehabilitation Potential Fair Status of Condition at Evaluation Evolving Summary Impairments Pain,ROM,Strength,Balance, Coordination,Cognition,Bed Mobility,Transfers,Gait, Activity Tolerance Progress Towards Goals Slow Progress due to Medical Issues,Slow Progress due to Activity Tolerance Assessment Summary See comments under mobility today. Pt presents with right head SB/cervical weakness today with thoracic and lumbar spine supported in chair. He has decreased spacial awarenss , pronator drift on the LUE and inattention to right arm falling to the right off the chair. Cervical/head posture is different to previous dates . See other findings above. HR 100-116 BPM with simple sitting activities. Pt presentation is neurological in nature this date. Pt is too weak and reports fear of attempting sitting upright today. He con't with globalized weakness that is profound and greater in proximal LEs compared to distal LEs. He has coordination challenges as well as spatial awareness challenge today. Ongoing word finding and processing challenges. Goals Bed Mobility Goal Independent Transfer Goal Standby Assistance,Front Wheeled Walker Gait Goal Standby Assistance,Front Wheel Walker Gait Distance 75 Other Goals Pt will ascend and descend two steps with no more than CASH PROCESSING SPECIALIST to allow safe home entrance. Days to Meet Goals 10 Frequency of Treatment Frequency Of Treatment Once a Day Treatment Plan Physical Therapy Treatment Plan Bed Mobility Training,Transfer Training,Gait Training, Therapeutic Exercise,Balance Retraining,Post Op Education, Discharge Planning,Hot or Cold Pack,Neuromuscular Re-ed, Coordination Retraining,Manual Therapy Precautions Abdominal Surgery Precautions Log Roll,Lifting Restrictions, Gait Belt above Incisional Area Other Precautions Pt is aware of log rolling from previous back surgery Recommendations To Nursing Amount of Assist Needed Mechanical Lift Discharge Recommendations PT Discharge Recommendations SNF Rehab Transportation Needs at Discharge Wheelchair/Cabulance
--- NOTE | 2023-12-22 11:37 | DIET.PN1 ---
Dietary Progress Note Assessment: Pt advanced to full liquids on 12/19. TPN weaned 12/20. Avg recorded po intakes on fulls is 70%. Surgery advanced diet to regular for tonight. Met with pt at bedside this afternoon. Reports normal appetite and po intakes until about 1-2 days before admission. States he doesn't remember what he ate at lunch today. No recent weight loss noted. Will add ONS BID and f/u to re-evaluate supplement need based off PO intakes and meal composition on general diet Ht: 190.5 cm Wt: 104.326 kg BMI: 28.7 UBW: 103.929 kg on 08/28/23 Last BM: 12/22/23 (12/22/23 10:42) MNA: 13 Mook Score: 17 Diet: 12/20/23 Lunch Full Liquid Diet Diet Modifications: add ensure drinks (cynthia/Vanilla) each meal. Nutrition Percent Meal Consumed 25% 12/22/23 10:49 Percent Meal Consumed 75% 12/21/23 13:01 Percent Meal Consumed 75% 12/20/23 18:00 Percent Meal Consumed 100% 12/20/23 13:00 Labs: RBC 5.02 X10^6/uL (4.5-5.9) 12/19/23 04:35 Hgb 14.5 g/dL (13.5-17.5) 12/19/23 04:35 Hct 44.3 % (41-53) 12/19/23 04:35 Creatinine 0.72 mg/dL (0.66-1.25) 12/21/23 04:11 Lactate 1.7 mmol/L (0.7-2.1) 12/14/23 12:15 NT-Pro-B Natriuret Pep 408 pg/mL (<125) H 12/16/23 04:35 Electronically Signed by: Taya Crowley 12/22/23 11:37 Clinical Dietitian [address] [address]
--- NOTE | 2023-12-22 11:58 | P.PN_ITS ---
Subjective Subjective Interval history: S; he was doing well other than being very weak. No abdominal pain. He was eating. He had a bowel movement today. He was minimal confusion, this is improving. His tachycardia is also slowly improving. Exam Vital Signs (past 8 hours): - 12/22/23 04:00 12/22/23 09:46 12/22/23 09:46 Temperature 97.6 F Pulse Rate 92 H 104 H 104 H Respiratory Rate 16 Blood Pressure 145/97 H 141/88 H 141/88 H Pulse Oximetry 93 Oxygen Flow Rate 0 12/22/23 10:49 Temperature 97.5 F L Pulse Rate Respiratory Rate Blood Pressure Pulse Oximetry 95 Oxygen Flow Rate Fraction of Inspired Oxygen 32 SaO2/FiO2 Ratio 290 Oxygen Delivery Method Room Air Oxygen Flow Rate 0 Narrative Exam Narrative: NAD, alert and oriented. Fluent speech. Lungs are clear, normal rate and effort. Heart is regular, no murmur gallop or rub. Abdomen is soft, non distended. There is a large dressing over his abdominal wound. Extremities are free of edema. Left arm PICC. He was alert and oriented x3. Fluent speech. He was able to lift his head up straight. He can lift both arms up and wiggle both feet without difficulty. 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 S/p ileocecectomy for acute ruptured gangrenous appendicitis 12/12/2023, complicated by possible intra-abdominal abscess and post operative ileus - Doing well with diet advancing. - Continue meropenem therapy. Fluconazole added 12/15. MRSA swab was negative. KIRSTEN drainage appears serosanguineous without purulence. Ongoing management per General surgery. - NG tube placed 12/16 and removed on 12/17 - PICC line placed and TPN started 12/17/2023. 2. Sepsis with acute hypoxic respiratory failure, hyperbilirubinema secondary to #1 above, resolved -secondary to ruptured appendicitis. He remains tachycardic. Lactate remains within normal limits at 1.7 today. White blood cell count is stable today at 15. -hypoxemia resolved 12/19/2023, off oxygen -likely due in part now to combination of abdominal distension, ileus 3. Acute hypoxic respiratory failure, resolved -resolved, likely due to volume overload/pulmonary edema but also possible sepsis and abdominal distension contributing today. 4. Acute on chronic CHFrEF, improved. TTE with EF 30-35%, apparently chronic after discussing with mobile lounge driver yesterday. Recommended outpatient ischemic evaluation given wall motion abnormalities. -continue lisinopril, continue home beta nadeen metoprolol 25 mg daily -continue furosemide 40 mg IV daily, transition to home a hydrochlorothiazide at discharge. 5. Hyponatremia, stable. -Resolved. 6. Hypokalemia, stable. -corrected 7. Hypertension, stable. -adequately controlled on home medications. 8. Chronic low back pain with baseline gait impairment and chronic lower extremity weakness, active. Continue physical therapy PLAN: -looking at SNF ([facility]). Code status Full DVT prophylaxis Lovenox Disposition Anticipate SNF placement Time-Based Coding :: [TOTAL MINUTES] spent with patient and on the chart (including review of chart, obtaining history, exam, reviewing outside data, placing orders, documenting exam and treatment plan, and counseling patient) on [DATE].
[2023-12-22 13:12] VITALS: PULSE 93; TEMP 36.5; O2SAT 94
--- NOTE | 2023-12-22 13:45 | PM.PN.1 ---
Subjective Subjective Date Patient Seen: 12/22/23 Time Patient Seen: 13:45 Interval history: Doing well. Tolerating full liquids and having bowel function. Exam Vital Signs (past 8 hours): - 12/22/23 09:46 12/22/23 09:46 12/22/23 10:49 Temperature 97.5 F L Pulse Rate 104 H 104 H Blood Pressure 141/88 H 141/88 H Pulse Oximetry 95 Oxygen Flow Rate 12/22/23 13:12 Temperature 97.7 F Pulse Rate 93 H Blood Pressure Pulse Oximetry 94 Oxygen Flow Rate 0 Fraction of Inspired Oxygen 32 SaO2/FiO2 Ratio 290 Oxygen Delivery Method Room Air Oxygen Flow Rate 0 Narrative Exam Narrative: Drain output is completely serous Abdomen is soft, nontender Incision is clean dry and intact Objective Labs 12/19/23 04:35 12/21/23 04:11 Labs: Laboratory Results - last 24 hr 12/22/23 04:26 Triglycerides 214 H PF[facility] Medical History Influenza A Anesthesia Gait instability 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 Bleeding from ear 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) Congestive heart failure Coronary artery aneurysm Pure hypercholesterolemia (07/30/16) Hypogonadism in male (04/23/16) Essential hypertension (04/23/16) Surgical History H/O surgical amputation of finger H/O vasectomy Hx of tonsillectomy Family History Father Heart attack Mother Dementia Sister Cancer Social History household members: spouse and family Smoking Status: Never smoker alcohol intake: former substance use type: does not use Assessment & Plan Assessment and plan (1) Postoperative examination: Status: Acute Plan Drain has been removed Advance to regular diet Time-Based Coding :: [TOTAL MINUTES] spent with patient and on the chart (including review of chart, obtaining history, exam, reviewing outside data, placing orders, documenting exam and treatment plan, and counseling patient) on [DATE].
--- NOTE | 2023-12-22 13:56 | OT.IP.TRT ---
Current Diagnoses Unspecified acute appendicitis (12/12/23) Encounter for follow-up examination after completed treatment for conditions other than malignant neoplasm (12/12/23) Surgery Performed Operation Date: 12/12/23 15:30 Actual Procedures p Laparotomy Ileocecectomy - Jorge Polanco MD Occupational Therapy Treatment Note M2 OT-IP Current Condition Start: 12/18/23 17:04 Freq: Status: Active Protocol: Document 12/18/23 16:50 CCC (Rec: 12/18/23 17:19 CCC [id number]) Occupational Therapy Current Condition Current Condition Evaluation Date 12/18/23 Treatment Diagnosis S/P Ileococectomy for ruptured gangrenous appedicitis Diagnosis Onset Date 12/12/23 Post Operative Precautions Abdominal Surgery Precautions Log Roll,Lifting Restrictions, Gait Belt above Incisional Area M3 OT- IP Subjective and Pain Start: 12/18/23 17:04 Freq: Status: Active Protocol: Document 12/22/23 14:41 CGR (Rec: 12/22/23 14:55 CGR [id number]) OT- Subjective Occupational Therapy Visit Type Type Treatment Note Visit Start Time 13:39 Visit Stop Time 13:56 Notes Per nursing, pt recently got up to the [facility] and they had to use the lift to return him to bed. OT Pain Assessment Pain When Pain Assessed At Rest Pain Present Pain Present Denied Pain M4 OT- IP ADL's Start: 12/18/23 17:04 Freq: Status: Active Protocol: Document 12/22/23 14:41 CGR (Rec: 12/22/23 14:55 CGR [id number]) OT [id number] Comments OT Self-Feeding Comments not meal time OT ADL-Grooming General Evaluation Grooming Ability Standby Assistance Areas Needing Assistance Retrieving/Set-up of Grooming Items,Face Washing Comments OT Grooming Comments seated EOB OT ADL-Oral Care Comments Oral Care Comments pt declined to perform OT ADL-Dressing General Eval Lower Body Dressing Ability Total Assistance Areas Needing Assistance Socks Comments OT Dressing Comments seated EOB, pt states that he does not perform at baseline. OT ADL-Toileting Comments OT Toileting Comments not performed OT ADL-Bathing Comments OT Bathing Comments not appropriate M5 OT- IP IADL's Start: 12/18/23 17:04 Freq: Status: Active Protocol: Document 12/18/23 16:50 CCC (Rec: 12/18/23 17:19 [facility] [id number]) OT-Instrumental Activities of Daily Living Home Safety Awareness Awareness of Need for Assistance at Home Good Awareness Home Safety Comments Pt realizes best to go to rehab prior to going home. Medication Management Medication Management Caregiver Administers Money Management Money Management Caregiver Provides Assistance Meal Preparation Meal Preparation Caregiver Provides Assist Orchard Sprayer Orchard Sprayer Caregiver Provides Assist Driving Driving Caregiver Provides Assist M6 OT- IP Functional Cognition Start: 12/18/23 17:04 Freq: Status: Active Protocol: Document 12/22/23 14:41 CGR (Rec: 12/22/23 14:55 CGR [id number]) Cognitive Factors Limiting Selfcare Function Cognitive Ability Level of Alertness Alert Cognitive Comments Cognitive Assessment Comments Pt appears childlike in his interactions but is agreeable and hard working in todays session. OT- Vision and Hearing OT- Vision Assessment Visual Acuity Glasses For Reading Visual Attentiveness WFL Occular Pursuits WFL Visual Convergence WFL Visual Jackman WFL Diplopia Absent M7 OT- IP Mobility and Balance Start: 12/18/23 17:04 Freq: Status: Active Protocol: Document 12/22/23 14:41 CGR (Rec: 12/22/23 14:55 CGR [id number]) OT- Bed Mobility Assessment Rolling Type of Rolling Roll to Right Level of Assistance Standby Assistance Supine to Sit Supine to Sit Assist Standby Assistance Sit to Supine Sit to Supine Assist Moderate Assistance Scooting Scooting to Edge of Bed Standby Assistance OT-Transfer Assessment Sit to and From Stand Sit to and from Stand Maximum Assistance,2 Person Assistance Devices Transfer Assistive Devices Gait Belt,Front Wheeled Walker Comments Mobility Comments Gait belt placed on chest to protect abdomen. Pt unable to take steps and stood x1 with max x 2. Pt returned to bed needing mod a. OT- Gait Assessment Comments Gait Ability Comments Unable OT- Balance Assessment Sitting Balance and Reactions Static Sitting Balance Ability Good Dynamic Sitting Balance Ability Good Comments Other Balance Tests/Deviations/Treatment Of note, pt's head is tilted : to the R during the session. Sitting balance appears equal but RUE shaking with scooting while LUE is not. M8 OT- IP Objective Assessments Start: 12/18/23 17:04 Freq: Status: Active Protocol: Document 12/18/23 16:50 [facility] (Rec: 12/18/23 17:19 CCC [id number]) OT Gross Range of Motion Upper Extremity Range of Motion Assessment Within Functional Limits OT Strength Comments Strength Comments At least 4-/5 OT- Coordination Assessment Upper Extremity Finger to Nose Test Within Functional Limits M9 OT- IP Assessment and Plan Start: 12/18/23 17:04 Freq: Status: Active Protocol: Document 12/22/23 14:41 CGR (Rec: 12/22/23 14:55 CGR [id number]) OT Summary Assessment and Plan Potential Rehabilitation Potential Fair Analytic Complexity at Evaluation High Summary OT Impairments Pain,Strength,Balance, Functional Cognition, Functional Mobility,Self- Feeding,Grooming,Dressing, Toileting,Bathing,Toilet Transfers,Shower Transfers, Activity Tolerance Progress Towards Goals Slow Progress due to Pain,Slow Progress due to Medical Issues,Slow Progress due to Activity Tolerance,Slow Progress due to Cognition Assessment Summary Pt with good participation on this date and performed sup to sit with SBA and stood with max x2. Pt then needed mod a to return to supine in bed. Pt is childlike in his interactions but appears less confused. Pt will continue to benefit from therapy services. Recommend SNF. Goals Self-Feeding Goal Independent Grooming Goal Independent Dressing Goal Minimal Assistance Toileting Goal Minimal Assistance Bathing Goal Moderate Assistance Toilet Transfer Goal Contact Guard Assistance Shower Transfer Goal Minimal Assistance Days to Meet Goals 25 Frequency of Treatment Frequency Of Treatment Once a Day Other frequency 5x/week Treatment Plan OT Treatment Plan ADL Training,Functional Cognition Training,Functional Mobility,Patient/Family Education,Discharge Planning Discharge Recommendations OT Discharge Recommendations SNF Rehab Transportation Needs at Discharge Wheelchair/Cabulance
--- NOTE | 2023-12-22 14:37 | CM.DPNOTE ---
DCP note RANCH MANAGER reviewed EMR. Per hospitalist/surgeon notes, tolerating being off TPN well, advancing to regular diet, could dc to [facility] tomorrow likely Hospitalist confirmed no IV abx at dc and no testosterone shot at dc. Per Rhiannon at , likely able to accept pt tomorrow around 11am. RANCH MANAGER updated provider on dc time for tomorrow. RANCH MANAGER completed PASRR. RANCH MANAGER met with pt in room, confirm agreeable/preference to dc to [facility] when stable. Deny questions at this time. eager to participate in rehab to get stronger to dc home. P: anticipate dc to [facility] tomorrow at 11am. PASRR complete. CM team will continue to follow closely ALBINO Forrester
--- NOTE | 2023-12-22 16:24 | DI.CT.S_ITS ---
PROCEDURE: CT HEAD/BRAIN WO CON INDICATIONS: confusion TECHNIQUE: Noncontrast 4.5 mm thick angled axial sections acquired from the foramen magnum to the vertex, with coronal and sagittal reformats. For radiation dose reduction, the following was used: automated exposure control, adjustment of mA and/or kV according to patient size. COMPARISON: None. FINDINGS: Image quality: Diagnostic. CSF spaces: Basal cisterns are patent. No extra-axial fluid collections. The ventricles are large for degree of volume loss. Brain: No midline shift. No intracranial masses or hemorrhage. Gee-white matter interface is normal. Intracranial atherosclerotic vascular calcifications are present. Skull and face: Calvarium and visualized facial bones are intact, without suspicious lesions. Sinuses: Visualized sinuses and mastoids are clear. IMPRESSION: Ventriculomegaly, out of proportion to cerebral volume loss. No evidence of transependymal flow of CSF. This is favored to be chronic in etiology, however no comparison imaging is available and acute hydrocephalus is not definitively excluded. Recommend clinical correlation. Normal pressure hydrocephalus is in the differential. Dictated by: Poncho Guardado M.D. on 12/22/2023 at 18:10 Approved by: Poncho Guardado M.D. on 12/22/2023 at 18:13
[2023-12-22 20:00] VITALS: BP 113/72; PULSE 66; RESP 18; TEMP 36.5; O2SAT 93
[2023-12-22] MEDS: FLUCONAZOLE 400 MG/200 ML PIGGYBACK 100 MG IV (20:19)
[2023-12-22] MEDS: TRAZODONE 50 MG TABLET 100 MG PO (20:20)
[2023-12-22] MEDS: GABAPENTIN 300 MG CAPSULE PO (20:20)
[2023-12-23 05:37] LABS: BUN Creatinine Ratio 46.4 (6-22); Blood Urea Nitrogen 39 mg/dL (9-20); Calcium 8.5 mg/dL (8.4-10.2); Carbon Dioxide 34 mmol/L (22-32); Chloride 95 mmol/L (98-107); Estimated Glomerular Filt Rate > 60 mL/min (>60); Glucose 121 mg/dL (80-110); HEMOLYSIS < 15 (0-50); Potassium 4.6 mmol/L (3.4-5.1); Sodium 130 mmol/L (137-145)
[2023-12-23 06:38] VITALS: BP 132/72; PULSE 74; RESP 18; TEMP 36.7; O2SAT 92
[2023-12-23] MEDS: MEROPENEM 2 GM in SODIUM CHLORIDE 0.9% 100 ML IV (06:56)
[2023-12-23] MEDS: CELECOXIB 200 MG CAPSULE PO (08:14)
[2023-12-23] MEDS: DULOXETINE 30 MG CAPSULE 60 MG PO (08:15)
[2023-12-23] MEDS: ENOXAPARIN 40 MG/0.4 ML SYRINGE SUBCUT (08:15)
[2023-12-23] MEDS: CITALOPRAM 10 MG TABLET 20 MG PO (08:15)
[2023-12-23 08:16] VITALS: BP 132/72; PULSE 74
[2023-12-23] MEDS: lisinopriL 20 MG TABLET PO (08:16)
[2023-12-23] MEDS: METOPROLOL ER 25 MG TABLET PO (08:16)
[2023-12-23] MEDS: FUROSEMIDE 40 MG/4 ML VIAL IV (08:18)
[2023-12-23] MEDS: fentaNYL 25 MCG/PATCH TOP (08:30)
[2023-12-23 08:46] VITALS: PULSE 72
--- NOTE | 2023-12-23 10:26 | P.DS_ITS ---
History of Present Illness History of Present Illness Chief complaint: lost use of legs, back pain, right obleak muscle Narrative: From night doctor: 68 year-old male with past medical history of hypertension, depression, low testosterone, chronic lower back pain from status post L4-S1 fusion with chronic lower bilateral extremely weakness and chronic fatigue presents with complaint of right side, abdominal pain and leg weakness. Per the patient report, the patient at baseline ambulates with a cane. However this afternoon, the patient was having a hard time standing upright due to right side, abdominal pain. The patient states that his pain is severe and is thought to be from a muscle tear. Otherwise a patient denies any fever, chills, nausea, vomiting, changes in bowel or bladder habits? as well as denying any saddle anesthesia. In our emergency room, the patient was hemodynamically stable but lab shows WBC of 20,000. CT of the abdomen shows signs of acute appendicitis. General surgery was consult ?and recommended to admit the patient for possible OR in the morning. IV zosyn was given. Patient is not septic. Additional information: He notes right flank pain and anorexia for several days. He has been comfortable overnight. He denies any nausea, or diarrhea. Discharge Providers Provider Date of admission: 12/12/23 00:49 Discharge Date: 12/23/23 Primary care physician: Kesha Mcdonald DO Consults: 12/12/23 00:15 Consult to General Surgery Stat Comment: Consulting Provider: Jorge Polanco Reason for consultation: acute appendicitis Has provider been notified: Yes 12/12/23 00:55 Consult to Occupational Therapy Evaluate & Treat Comment: Physician Instructions: Evaluate and treat Consult to Physical Therapy Evaluate & Treat Comment: Physician Instructions: Evaluate and Treat 12/18/23 10:34 Consult to Occupational Therapy Evaluate & Treat Comment: Physician Instructions: Evaluate and treat Consult to Physical Therapy Evaluate & Treat Comment: Physician Instructions: Evaluate and Treat Discharge provider: Reyes Calloway MD Summary Hospital Course Discharge Diagnosis: 1. S/p ileocecectomy for acute ruptured gangrenous appendicitis 12/12/2023, complicated by possible intra-abdominal abscess and post operative ileus - Doing well with diet advancing. - Continue meropenem therapy. Fluconazole added 12/15. MRSA swab was negative. KIRSTEN drainage appears serosanguineous without purulence. Drain removed on December 21. Antibiotics will be stopped at discharge. - NG tube placed 12/16 and removed on 12/17 - PICC line placed and TPN started 12/17/2023. PICC and Gonzales removed for discharge. 2. Sepsis with acute hypoxic respiratory failure, hyperbilirubinema secondary to #1 above, resolved -secondary to ruptured appendicitis. He remains tachycardic. Lactate remains within normal limits at 1.7 today. White blood cell count is stable today at 15. -hypoxemia resolved 12/19/2023, off oxygen -likely due in part now to combination of abdominal distension, ileus 3. Acute hypoxic respiratory failure, resolved -resolved, likely due to volume overload/pulmonary edema but also possible sepsis and abdominal distension contributing today. 4. Acute on chronic CHFrEF, improved. TTE with EF 30-35%, apparently chronic after discussing with real estate attorney yesterday. Recommended outpatient ischemic evaluation given wall motion abnormalities. -continue lisinopril, continue home beta nadeen metoprolol 25 mg daily -continue furosemide 40 mg IV daily, transition to home a hydrochlorothiazide at discharge. 5. Hyponatremia, stable. -Resolved. 6. Hypokalemia, stable. -corrected 7. Hypertension, stable. -adequately controlled on home medications. 8. Chronic low back pain with baseline gait impairment and chronic lower extremity weakness, active. Continue physical therapy Hospital Course: The patient was admitted for appendicitis and underwent surgery which involved an ileocecectomy due to rupture. This is complicated by a postoperative ileus and abscess. The patient was treated with antibiotics and antifungals until the date of discharge. The patient was also supported with TPN until able to advance diet. He did have evidence of acute on chronic heart failure which was improved with diuresis. The patient is slow at executive functioning and a CT scan of the brain on December 21 indicated possible larger than expected ventricles. He was no history of diagnosis of normal pressure hydrocephalus. He does have chronic lower leg weakness which he says is been ongoing since his back surgery 2 years ago. He was quite debilitated from his hospital encounter and requires ongoing physical and occupational therapy. The patient will have close follow up with his primary care after rehabilitation efforts and we will likely benefit from a referral outpatient and Neurology to consider repeating his brain imaging and whether or not more studies are indicated. Status at Discharge Cognitive/behavioral status at discharge: oriented Functional status at discharge: uses cane/walker Overall status at discharge: patient is not back to baseline Time Spent with Patient Time spent: Greater than 30 minutes Exam Vital Signs (past 8 hours): - 12/23/23 06:38 12/23/23 08:16 12/23/23 08:16 Temperature 98.0 F Pulse Rate 74 74 Respiratory Rate 18 Blood Pressure 132/72 132/72 Pulse Oximetry 92 Oxygen Flow Rate 0 12/23/23 08:46 Temperature Pulse Rate 72 Respiratory Rate Blood Pressure Pulse Oximetry Oxygen Flow Rate Fraction of Inspired Oxygen 32 SaO2/FiO2 Ratio 290 Oxygen Delivery Method Room Air Oxygen Flow Rate 0 Narrative Exam Narrative: NAD, alert and oriented. Fluent speech. Lungs are clear, normal rate and effort. Heart is regular, no murmur gallop or rub. Abdomen is soft, non distended. Extremities are free of edema. He can lift both legs up and maintain extension for 10 seconds. He was good dorsiflexion and plantar flexion. He can lift both arms up symmetrically and hold them up for 10 seconds as well. Objective Imaging Multiple studies:: Radiologist's impression: Brain CT: Ventriculomegaly, out of proportion to cerebral volume loss. No evidence of transependymal flow of CSF. This is favored to be chronic in etiology, however no comparison imaging is available and acute hydrocephalus is not definitively excluded. Recommend clinical correlation. Normal pressure hydrocephalus is in the differential. Chest x-ray: Lungs and pleura: Streaky bilateral lower lobe opacification. Low lung volumes. No pleural effusions or pneumothorax. 1. Findings that can be seen with aspiration pneumonitis versus pneumonia. 2. Enteric tube tip in appropriate position. Abdomen pelvis CT (12/15): 1. Interval appendectomy. 2. Question possible small contained perforation versus gas containing periappendiceal bed abscess measuring 3.6 x 1.6 cm. 3. Dilated small bowel and distended stomach. Favor small-bowel obstruction. Also possible is severe ileus. Recommend progress films. 4. Bibasilar atelectasis, right greater than left, minimal right pleural effusion. 5. Cholelithiasis. Echo: TTE with EF 30-35%, apparently chronic after discussing with real estate attorney Abdomen pelvis CT(12/10): 1. Findings consistent with acute appendicitis. There is surrounding fat stranding and fluid. No organized fluid collections or extraluminal gas. 2. Cholelithiasis without evidence of acute cholecystitis. 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 S/p ileocecectomy for acute ruptured gangrenous appendicitis 12/12/2023, complicated by possible intra-abdominal abscess and post operative ileus 2. Sepsis with acute hypoxic respiratory failure, hyperbilirubinema secondary to #1 above, resolved 3. Acute hypoxic respiratory failure, resolved 4. Acute on chronic CHFrEF, improved. Plan of Treatment: Discharge to [facility] facility for rehabilitation efforts. We will arrange Neurology outpatient follow up after his rehabilitation stay. Discharge Plan Discharge Plan Patient Disposition: SNF Transfer to: [facility] Under care of provider: Dr Kumar Provider Discharge Comment: Stable for discharge to retirement facility for ongoing rehabilitation efforts and to assess progress. Discharge orders & Medications Prescriptions: New gabapentin 300 mg Capsule 300 mg PO BEDTIME Qty: 14 0RF Continued (DME) Syringes 0 .Route .MEDSUPPLY Qty: 1 3RF Dose Instruction: As directed Rx Instructions: As directed metoprolol succinate 25 mg tablet extended release 24 hr 25 mg PO DAILY Qty: 90 2RF citalopram 20 mg tablet 20 mg PO DAILY Qty: 90 0RF lisinopril-hydrochlorothiazide 20-25 mg tablet 1 tab PO DAILY Qty: 90 3RF (DME) MAX NEEDLES 21GX1 Qty: 50 2RF Dose Instruction: As directed Rx Instructions: USE TO INJECT TESTOSTERONE INTRAMUSCULAR ONCE A WEEK duloxetine 60 mg capsule,delayed release(DR/EC) 60 mg PO DAILY Qty: 90 3RF acetaminophen 325 mg Tablet 650 mg PO Q6HR Qty: 60 0RF trazodone 100 mg tablet 100 mg PO BEDTIME Discontinued testosterone cypionate [Depo-Testosterone] 200 mg/mL oil 200 mg IM Q4W Qty: 1 3RF Hold Instructions: Needs labs Patient Comments: Pt states he has not used in a couple months Medication counseling provided by Pharmacist: No Follow up/Referrals: Kesha Mcdonald DO [Primary Care Provider] - Discharge Health Status Multidrug resistant organism: No MDRO Diet/Activity/Treatments Diet: Regular Liquid consistency: Normal/Thin Activity: As tolerated Skin/Wound/Dressing Care Report to your healthcare provider any signs of infection, such as:: chills, fever, increased pain, unusual drainage and unusual redness Special Rehabilitation Services Reason for rehabilitation: Post-operative therapy Rehab type: Physical therapy and Occupational therapy Visit Report/Discharge Packet Instructions: DI for an Appendectomy, DI for Laparoscopy, [facility]: Wound Care Stand Alone Forms: Patient Portal/API Discharge Data Primary Care Provider: Kesha Mcdonald
--- NOTE | 2023-12-23 10:35 | PT.IPTN ---
Current Diagnoses Unspecified acute appendicitis (12/12/23) Encounter for follow-up examination after completed treatment for conditions other than malignant neoplasm (12/12/23) Surgery Performed Operation Date: 12/12/23 15:30 Actual Procedures p Laparotomy Ileocecectomy - Jorge Polanco MD Physical Therapy Treatment Note M2 PT-IP Current Condition Start: 12/14/23 06:44 Freq: NEEDED Status: Discharge Protocol: Document 12/18/23 12:27 MB (Rec: 12/18/23 13:18 MB [id number]) Physical Therapy Current Condition Current Condition Evaluation Date 12/18/23 Treatment Diagnosis Weakness, infected appendix s/ p surgery, sepsis, respiratory failure M3 PT-IP Subjective Start: 12/14/23 06:44 Freq: NEEDED Status: Discharge Protocol: Document 12/23/23 10:35 AB (Rec: 12/23/23 12:40 AB [id number]) Subjective Physical Therapy Visit Type Type Treatment Note Visit Start Time 10:35 Visit Stop Time 11:10 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 Physical Therapy Visit Comments Patient Comments agreeable to do PT M4 PT-IP Mobility and Gait Start: 12/14/23 06:44 Freq: NEEDED Status: Discharge Protocol: Document 12/23/23 10:35 AB (Rec: 12/23/23 12:40 AB [id number]) PT-Bed Mobility Assessment Supine to Sit Supine to Sit Maximum Assistance,1 Person Assistance,Head of Bed Elevated,Bedrails PT-Transfer Assessment Sit to and From Stand Sit to and from Stand Maximum Assistance,2 Person Assistance,Use of Upper Extremities Equipment Transfer Assistive Device Gait Belt,Front Wheeled Walker Orthotic/Prosthetic Devices or Brace: No Transfers Transfer Destination Chair Transfer Technique Squat Pivot Transfer Ability Level of Assist Maximum Assistance,2 Person Assistance,Use of Upper Extremities Comments Mobility Comments pt supine in bed and agreeable to do PT. completed supine to sit max A and max cues log roll. pt able to sit on EOB CGA. completed sit<> stand x 3 reps max A x 2 and max cues. pt with difficulty following directions. pt able to maintain standing ~ 5 sec and has to sit down. pt unable to stand fully upright and needed assist x 2 and cues for quads activation. pt with difficulty following directions. pt completed squat pivot transfer max A x 2 and max cues. positioned pt on the chair. Left pt with NAC and nurse in room. Gait Assessment Comments Gait Comments unable at this time M5 PT-IP Objective Assessments Start: 12/14/23 06:44 Freq: NEEDED Status: Discharge Protocol: Document 12/18/23 12:27 MB (Rec: 12/18/23 13:18 MB [id number]) Orientation Orientation/Cognition Level of Alertness Confusional State Orientation Name,Age,Birthday,Month,Year, Place Language Function Ability No Deficits Noted Safety Awareness Decreased Safety Awareness Comments PT with acute encephalopathy, likely d/t infection and ICU stay, does make good effort with therapy and anticipate ongoing improvements Gross Range of Motion Upper Extremity ROM Impairments Defer to OT Lower Extremity ROM Assessment Within Functional Limits Strength Lower Extremity Strength Knee B knee extension 4/5 Ankle B ankle DF 4+/5; right great toe extension 5/5 and left great toe 4/5 Comments Strength Comments Pt is functionally weak with attempted standing and this might be d/t fear and/or cardiopulomary presentation, strong posterior lean Coordination Assessment Gross Coordination Gross Coordination Impaired Assessment Coordination Comments Pt cannot follow commands. Missing finger left hand. Sensation Assessment Comments Sensation Comments Pt does not follow commands. M6 PT-IP Treatment Start: 12/14/23 06:44 Freq: NEEDED Status: Discharge Protocol: Document 12/23/23 10:35 AB (Rec: 12/23/23 12:40 AB [id number]) Physical Therapy Treatment Education Education Provided Safety M7 PT-IP Assessment and Plan Start: 12/14/23 06:44 Freq: NEEDED Status: Discharge Protocol: Document 12/23/23 10:35 AB (Rec: 12/23/23 12:40 AB [id number]) PT Summary Assessment and Plan Potential Rehabilitation Potential Fair Summary Impairments Pain,ROM,Strength,Balance, Coordination,Sensation,Tone, Cognition,Bed Mobility, Transfers,Gait,Activity Tolerance Progress Towards Goals Slow Progress due to Medical Issues,Slow Progress due to Activity Tolerance,Slow Progress - Other Assessment Summary pt requiriing max A x 2 for squat pivot transfer. Recommending mechanical lift transfer with nursing staff. pt has difficulty following directions and has decrease safety awareness. pt will require SNF rehab to improve overall strength and mobility. 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 Days to Meet Goals 10 Frequency of Treatment Frequency Of Treatment Once a Day Treatment Plan Physical Therapy Treatment Plan Bed Mobility Training,Transfer Training,Gait Training, Therapeutic Exercise,Balance Retraining,Post Op Education, Discharge Planning,Hot or Cold Pack,Neuromuscular Re-ed, Coordination Retraining,Manual Therapy Precautions Abdominal Surgery Precautions Log Roll,Lifting Restrictions, Gait Belt above Incisional Area Recommendations To Nursing Amount of Assist Needed Mechanical Lift Discharge Recommendations PT Discharge Recommendations SNF Rehab Transportation Needs at Discharge Wheelchair/Cabulance
[2023-12-23 11:00] VITALS: BP 127/78; PULSE 115; RESP 18; TEMP 36.4; O2SAT 96
--- NOTE | 2023-12-23 11:55 | PC.NURSE ---
Discharge Note Patient A&O to baseline, VSS, RA, no complaints of pain or discomfort. Patient agreeable to discharge plan. PICC discontinued. Fentanyl patched removed by this RN per MD order and disposed but his RN in cactus. Patient assisted in packing all belongings. Packet given to facility transport. Report given to facility RN, all questions/concerns addressed. Patient assisted unto wheelchair via william and taken by facility transport.
--- NOTE | 2023-12-23 12:34 | CM.DPNOTE ---
DC Note Discharge to [facility] today, patient remains aware and agreeable. Facility van arranged for last picker [id number]. Orders completed and signed by Dr Calloway and placed in SNF packet with Rhiannon GRAF at [facility] made aware. Nurse to nurse report P [phone] Plan: Discharge to [facility] via wheelchair van. STARLA
== END 2023-12-23 11:40 | DRG 853 ==
LOC: ED 12-12 00:20 → AC 12-12 00:50 → ICU 12-15 11:03 → AC 12-18 16:32
PROVIDERS: Family Medicine; Hospitalist; Internal Medicine; Surgery; Admitting Provider Internal Medicine; Emergency Provider Emergency Medicine; Family Provider Pediatrics; PCP Family Medicine; Referring Provider Emergency Medicine; Visit Provider Internal Medicine
PROC: 0DTJ4ZZ Resection of Appendix, Percutaneous Endoscopic Approach (ICD-10-PCS; CPT 44970; principal; 2023-12-12 15:30)
DX: A41.9 Sepsis, unspecified organism (principal); I50.23 Acute on chronic systolic (congestive) heart failure; J96.01 Acute respiratory failure with hypoxia; K35.33 Acute appendicitis with perforation, localized peritonitis, and gangrene, with abscess; K55.9 Vascular disorder of intestine, unspecified; E87.1 Hypo-osmolality and hyponatremia; K91.89 Other postprocedural complications and disorders of digestive system; K56.7 Ileus, unspecified; F32.A Depression, unspecified; F41.9 Anxiety disorder, unspecified; G89.29 Other chronic pain; M54.50 Low back pain, unspecified; R53.1 Weakness; R26.89 Other abnormalities of gait and mobility; I11.0 Hypertensive heart disease with heart failure; R41.0 Disorientation, unspecified; R90.89 Other abnormal findings on diagnostic imaging of central nervous system; R65.20 Severe sepsis without septic shock; E80.6 Other disorders of bilirubin metabolism; E87.6 Hypokalemia; R00.0 Tachycardia, unspecified; Z98.1 Arthrodesis status
CPT/HCPCS: 36415; 36569; 36600; 44160; 51798; 70450; 71045; 74177; 80048; 80053; 81003; 81015; 82040; 82550; 82805; 82962; 83605; 83735; 83880; 84100; 84132; 84443; 84478; 84484; 85007; 85025; 85651; 86140; 87040; 87086; 87797; 93005; 93010; 93306; 94640; 94762; 96365; 97110; 97162; 97167; 97530; 97535; 99285; A9270; B4185; B4189; C9290; J1100; J1171; J1450; J1630; J1642; J1650; J1815; J1885; J1940; J2060; J2185; J2405; J2543; J2704; J3010; J3475; J3480; J7613; Q9967

== ENCOUNTER 2023-12-30 07:10 | Emergency (ER) | payer MEDICARE, MEDICAID, SELFPAY ==
[2023-12-12 02:13] VITALS: BMI 29.9
[2023-12-30] VITALS (20 sets, daily range): BP systolic 97–116; BP diastolic 70–79; PULSE 115–129; RESP 18–42; TEMP 36.4; O2SAT 88–97; BMI 28.1
--- NOTE | 2023-12-30 07:38 | ED_ITS ---
HPI - Abdominal Pain General Chief Complaint: Abdominal Pain Stated Complaint: abd pain Time Seen by Provider: 12/30/23 07:37 Source: patient, EMS, RN notes reviewed and old records reviewed Mode of arrival: EMS Limitations: no limitations History of Present Illness HPI narrative: 68-year-old male with a history of hypertension, depression, low testosterone, chronic low back pain status post L4-S1 fusion with chronic lower bilateral extremity and chronic fatigue who had ileo me for acute ruptured gangrenous appendicitis on 12/12/2023 complicated by possible intra-abdominal abscess and postoperative ileus patient was treated with meropenem and fluconazole. Patient had drain removed on December 21 was found to have an EF of 30-35% with the acute on chronic CHF during his stay as well as acute hypoxic respiratory failure secondary to sepsis. Patient was discharged 12/23/2023 to rehab. Patient is present with at bedside. states he was sweaty yesterday no other reported fevers. He denies any chest pain, states he does feel little short of breath, denies any nausea or vomiting. Has had decreased appetite recently. States he started him abdominal discomfort yesterday and into today. States that he did have some very large bowel movements after oral medications and a suppository this was in the last several days. No black or bloody stools reported. He has been urinating without issue. He denies any swelling of his abdomen. He denies any swelling in extremities. They note he has not been able to ambulate secondary to debility from his hospital stay. He has not on any anticoagulation. states his color is much better and he is overall improved since his hospitalization but was not on oxygen at the rehab facility. Patient's history include a spinal fusion, prior traumatic amputation of finger and recent ileocecectomy for gangrenous appendicitis and had a drain in place which has since been removed this month. No reported drug allergies from patient or family. No tobacco, alcohol or recreational drugs. Dr. Mcdonald is his primary care physician. Related Data Home Medications Medication Instructions Recorded Confirmed trazodone 100 mg tablet 100 mg PO BEDTIME 12/12/23 12/12/23 Previous Rx's Medication Instructions Recorded Syringes #1 ea 07/06/18 MAX NEEDLES #50 ea 09/26/21 acetaminophen 325 mg tablet 650 mg (2 x 325 mg) PO Q6HR #60 02/02/22 tabs lisinopril 20 1 tab PO DAILY #90 tabs 02/03/23 mg-hydrochlorothiazide 25 mg tablet duloxetine 60 mg capsule,delayed 60 mg PO DAILY #90 caps 08/28/23 release metoprolol succinate 25 mg 25 mg PO DAILY #90 tabs 10/10/23 tablet,extended release 24 hr citalopram 20 mg tablet 20 mg PO DAILY #90 tabs 11/26/23 gabapentin 300 mg capsule 300 mg PO BEDTIME #14 caps 12/23/23 Allergies Allergy/AdvReac Type Severity Reaction Status Date / Time No Known Drug Allergies Allergy Verified 12/11/23 21:59 Review of Systems Review of Systems ROS Unobtainable: All systems reviewed & are unremarkable except as noted in HPI and below Patient History Medical History Influenza A Anesthesia Gait instability 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 Bleeding from ear 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) Congestive heart failure Coronary artery aneurysm Pure hypercholesterolemia (07/30/16) Hypogonadism in male (04/23/16) Essential hypertension (04/23/16) Surgical History H/O surgical amputation of finger H/O vasectomy Hx of tonsillectomy Family History Father Heart attack Mother Dementia Sister Cancer Social History household members: spouse and family Smoking Status: Never smoker alcohol intake: former substance use type: does not use Smoking Status: Never smoker Substance Use Type: does not use Exam Narrative Exam Narrative: GEN: Well-nourished male, alert and oriented x 3, patient appears to be in mild distress. No diaphoresis. HEENT: Atraumatic, pupils are equal round reactive to light, extraocular movements are intact, nares are clear, there is no conjunctival pallor. Throat is clear without any exudates, erythema, tonsillar enlargement or uvular deviation HEART: Tachycardic but regular rate and rhythm without murmur, clicks, rubs. No carotid bruits, pulses are equal in upper and lower extremities. No edema bilateral upper or lower extremities. LUNGS:Lungs clear to auscultation, no wheezes, rales, crackles, chest moves symmetrically, no tachypnea accessory muscle use. Patient is on 2 L nasal cannula. ABD:bowel sounds normal, soft, non-tender, no guarding, rebound, rigidity, no masses noted, no hepatosplenomegaly, patient has radames with midline incision as well as additional staple with the site of his prior drain. Incisions are clean dry and intact. Patient is not distended. :No CVA tenderness MSCL: Non-tender, no muscle atrophy, globally weak, full range of motion. NEURO:CN 2-12 intact, sensation normal. Initial Vital Signs Initial Vital Signs: Vital Signs Temperature 97.6 F 12/30/23 07:21 Pulse Rate 128 H 12/30/23 07:21 Respiratory Rate 18 12/30/23 07:21 Blood Pressure 115/72 12/30/23 07:21 Pulse Oximetry 90 L 12/30/23 07:21 Oxygen Delivery Method Nasal Cannula 12/30/23 07:21 Oxygen Flow Rate 2 12/30/23 07:21 Course Orders Ordered: Discontinued Medications Heparin Sodium (Porcine) (Heparin 5,000 Unit/Ml Vial) 8,000 unit 80 unit/kg (8000 unit) IV NOW ONE Stop: 12/30/23 08:44 Last Admin: 12/30/23 09:03 Dose: 8,000 unit Documented By: Sodium Chloride (Normal Saline 0.9%) 1,000 mls @ 1,000 mls/hr IV BOLUS ONE Stop: 12/30/23 08:38 Last Infusion: 12/30/23 08:55 Dose: Infused Documented By: Admin: 12/30/23 07:45 Dose: 1,000 mls/hr Documented By: JACQUELINE Piperacillin Sod/Tazobactam (Sod 4.5 gm/ Sodium Chloride) 100 mls @ 200 mls/hr IV NOW ONE Stop: 12/30/23 07:56 Last Infusion: 12/30/23 08:56 Dose: Infused Documented By: Admin: 12/30/23 08:07 Dose: 200 mls/hr Documented By: MATTHEW Heparin Sodium/Dextrose (Heparin Drip) 25,000 unit in 500 mls @ 36.741 mls/hr IV CONT KAZ; Protocol Last Admin: 12/30/23 09:04 Dose: 18 units/kg/hr, 36.741 mls/hr Documented By: AB Co-signed By: MATTHEW Ondansetron HCl (Ondansetron 4 Mg/2 Ml Inj) 4 mg IV NOW PRN PRN Reason: Nausea And Vomiting Ondansetron HCl (Ondansetron 4 Mg Odt) 4 mg SL NOW PRN PRN Reason: Nausea And Vomiting Vital Signs Vital signs: Vital Signs - 8 hr 12/30/23 11:00 12/30/23 11:00 12/30/23 11:20 Pulse Rate 120 H 115 H Respiratory Rate 23 Blood Pressure 116/76 Pulse Oximetry 94 91 Oxygen Delivery Method Oxygen Flow Rate 12/30/23 11:20 12/30/23 11:30 12/30/23 11:40 Pulse Rate 116 H Respiratory Rate Blood Pressure 98/72 102/70 Pulse Oximetry 90 L Oxygen Delivery Method Oxygen Flow Rate 12/30/23 11:40 12/30/23 12:00 12/30/23 12:00 Pulse Rate 116 H 117 H Respiratory Rate 42 H 23 Blood Pressure 107/77 Pulse Oximetry 90 L 94 Oxygen Delivery Method Nasal Cannula Oxygen Flow Rate 3 12/30/23 12:20 12/30/23 12:20 Pulse Rate 116 H Respiratory Rate 22 Blood Pressure 113/77 Pulse Oximetry 93 Oxygen Delivery Method Nasal Cannula Oxygen Flow Rate 3 MDM - Abdominal Pain Lab Data 12/30/23 07:10 12/30/23 07:10 Labs: Lab Results 12/30/23 12/30/23 12/30/23 Range/Units 07:10 08:55 09:10 WBC 13.9 H (4.5-11.0) X10^3/uL RBC 5.29 (4.5-5.9) X10^6/uL Hgb 14.9 (13.5-17.5) g/dL Hct 46.0 (41-53) % MCV 86.9 (80-100) fL MCH 28.1 (26-34) PG MCHC 32.3 (30-36) % RDW 13.6 (11.6-14.8) % Plt Count 313 (150-400) X10^3/uL Neut % (Auto) 79.7 H (50-75) % Lymph % (Auto) 10.2 L (25-40) % Sheridan % (Auto) 9.4 (3-14) % Eos % (Auto) 0.3 L (2-4) % Baso % (Auto) 0.4 (0-2) % Neut # (Auto) 03484 H (6114-2548) /uL Lymph # (Auto) 1400 (6461-4636) /uL Sheridan # (Auto) 1300 H (0-900) /uL Eos # (Auto) 0 (0-450) /uL Baso # (Auto) 100 (0-100) /uL PT 12.9 H (9.4-12.5) SECONDS INR 1.1 (0.9-1.3) APTT 34 (25.1-36.5) SECONDS Sodium 135 L (137-145) mmol/L Potassium 3.7 (3.4-5.1) mmol/L Chloride 104 (98-107) mmol/L Carbon Dioxide 21 L (22-32) mmol/L BUN 25 H (9-20) mg/dL Creatinine 0.92 (0.66-1.25) mg/dL Estimated GFR > 60 (>60) mL/min BUN/Creatinine Ratio 27.2 H (6-22) Glucose 132 H (80-110) mg/dL Lactate 1.3 (0.7-2.1) mmol/L Calcium 8.3 L (8.4-10.2) mg/dL Total Bilirubin 0.8 (0.2-1.3) mg/dL AST 49 (17-59) IU/L ALT 67 H (<50) IU/L Alkaline Phosphatase 105 (38-126) U/L Total Creatine Kinase 55 (55-170) U/L Troponin I 0.066 H 0.072 H (0.01-0.034) ng/mL NT-Pro-B Natriuret Pep 8180 H (<125) pg/mL Total Protein 6.3 (6.3-8.2) g/dL Albumin 3.3 L (3.5-5.0) g/dL Globulin 3.0 (1.7-4.1) g/dL Albumin/Globulin Ratio 1.1 (1.0-2.8) Lipase 205 (23-300) U/L Procalcitonin 0.106 (<0.5) ng/mL Urine Color Yellow Urine Appearance Clear Urine pH 6.5 (4.5-8.0) Ur Specific Shelton <=1.005 (1.000-1.035) Urine Protein Negative (Negative) Urine Glucose (UA) Negative (Negative) g/dL Urine Ketones Trace H (NEGATIVE) Urine Occult Blood Trace-intact (Negative) Urine Nitrate Negative (Negative) Urine Bilirubin Negative (NEGATIVE) Urine Urobilinogen 0.2 (0.2) E.U./dL Ur Leukocyte Esterase Negative (NEGATIVE) Urine RBC 0-1/hpf D (0-5/HPF) Urine WBC 0-1/hpf (0-5/HPF) Ur Squamous Epith Cells None seen (0-5/HPF) Urine Bacteria None seen (None) Ur Culture Indicated? Cult not indicated Vol Urine Centrifuged 10ml (spun) Imaging Data Chest x-ray: Radiologist's Impression: Close Chest CTA (Signed) Poncho Guardado - 12/30/23 Abdomen/Pelvis CT (Signed) Poncho Guardado - 12/30/23 Chest X-Ray (Signed) Declan Francis - 12/30/[address] (Signed) GuardadoPoncho post - 12/22/23 Chest X-Ray (Signed) Matias Torres - 12/17/23 Chest X-Ray (Signed) Maico Hernandes - 12/16/23 Abdomen/Pelvis CT (Signed) Freedom Garcia - 12/16/23 Chest X-Ray (Signed) Angy Gonzalez - 12/16/23 Chest X-Ray (Signed) Angy Gonzalez - 12/14/23 Echocardiogram Ultrasound 12/14/23 Telemetry Strips 12/12/23 Telemetry Strips 12/12/23 Telemetry Strips 12/12/23 Chest X-Ray (Signed) GuardadoSaeid posty - 12/11/23 Abdomen/Pelvis CT (Signed) Guardado,Poncho - 12/11/23 Lumbar Spine MRI (Signed) Faraz Zazueta - 11/05/22 Chest X-Ray (Signed) Sanjay Courtney - 02/03/22 Chest X-Ray (Signed) Sanjay Courtney - 02/03/22 Chest X-Ray (Signed) Ronald aGming - 02/03/22 Lumbar Spine X-Ray (Signed) Vivi Barrios - 01/30/22 Telemetry Strips 01/30/[address] (Signed) Erlin Ybarra - 12/10/21 Injection Lumbar, Sacrum (Signed) Ronald Gaming - 08/09/21 Injection Lumbar, Sacrum (Signed) Josh Taylor - 05/08/21 Facet Joint Injection X-Ray (Signed) Ronald Gaming - 11/02/20 Facet Joint Injection X-Ray (Signed) Ronald Gaming - 09/21/20 Lumbar Spine MRI (Signed) ZazuetaFaraz lockhart - 09/04/20 Lumbar Spine X-Ray (Signed) Josh Taylor - 06/01/20 Knee X-Ray (Signed) Josh Taylor - 06/01/20 Knee X-Ray (Signed) Josh Taylor - 06/01/20 Launch[facility] [address] XRay Report Signed Patient: Jamal Orr MR#: [id number] : 1955 Acct:[id number] Age/Sex: 68 / M Date of Service: 12/30/23 Loc: ED Accession Number: [id number] Procedure: XR chest 1V Ordering Provider: Shandra Gibson D.O. PROCEDURE: XR CHEST 1V INDICATIONS: suspected sepsis TECHNIQUE: One view of the chest was acquired. COMPARISON: [facility], , XR CHEST FOR PICC 1V, 12/17/2023, 17:25. FINDINGS: Surgical changes and devices: None. Lungs and pleura: Linear scarring/atelectasis at right lower lung field is seen. Mild elevation of right hemidiaphragm is also noted. No definite focal infiltrate. No pleural effusions or pneumothorax. Mediastinum: Mediastinal contours appear normal. Heart size is normal. Bones and chest wall: No suspicious bony lesions. Overlying soft tissues appear unremarkable. IMPRESSION: Right basilar atelectasis. No definite focal infiltrate, pleural effusion or pneumothorax. Dictated by: Declan Francis M.D. on 12/30/2023 at 8:02 Approved by: Declan Francis M.D. on 12/30/2023 at 8:02 CT scan - abdomen/pelvis: Radiologist's Impression: Close Chest CTA (Signed) Debby,Poncho - 12/30/23 Abdomen/Pelvis CT (Signed) Debby,Poncho - 12/30/23 Chest X-Ray (Signed) Nely Francisng - 12/30/[address] (Signed) Guardado,Poncho - 12/22/23 Chest X-Ray (Signed) Matias Torres - 12/17/23 Chest X-Ray (Signed) Maico Hernandes - 12/16/23 Abdomen/Pelvis CT (Signed) Freedom Garcia - 12/16/23 Chest X-Ray (Signed) Angy Gonzalez - 12/16/23 Chest X-Ray (Signed) Angy Gonzalez - 12/14/23 Echocardiogram Ultrasound 12/14/23 Telemetry Strips 12/12/23 Telemetry Strips 12/12/23 Telemetry Strips 12/12/23 Chest X-Ray (Signed) Debby,Poncho - 12/11/23 Abdomen/Pelvis CT (Signed) DebbyPoncho - 12/11/23 Lumbar Spine MRI (Signed) Faraz Zazueta - 11/05/22 Chest X-Ray (Signed) CourtneySanjay camargo - 02/03/22 Chest X-Ray (Signed) CourtneyDaniel camargoel - 02/03/22 Chest X-Ray (Signed) Ronald Gaming - 02/03/22 Lumbar Spine X-Ray (Signed) Vivi Barrios - 01/30/22 Telemetry Strips 01/30/[address] (Signed) Erlin Ybarra - 12/10/21 Injection Lumbar, Sacrum (Signed) [place] - 08/09/21 Injection Lumbar, Sacrum (Signed) Felipe Tayloron - 05/08/21 Facet Joint Injection X-Ray (Signed) Mekhi,Ronald - 11/02/20 Facet Joint Injection X-Ray (Signed) [place],Ronald - 09/21/20 Lumbar Spine MRI (Signed) Faraz Zazueta - 09/04/20 Lumbar Spine X-Ray (Signed) Josh Taylor - 06/01/20 Knee X-Ray (Signed) Josh Taylor - 06/01/20 Knee X-Ray (Signed) Josh Taylor - 06/01/20 [address] [place] [address] CT Scan Report Signed Patient: Jamal Orr MR#: [id number] : 1955 Acct:[id number] Age/Sex: 68 / M Date of Service: 12/30/23 Loc: ED Accession Number: [id number] Procedure: CT abdomen pelvis w con Ordering Provider: Shandra Gibson D.O. PROCEDURE: CT ABDOMEN PELVIS W CON INDICATIONS: tachy, hypoxic, recent ileocecetomy, abscess, abd pain TECHNIQUE: After the administration of intravenous contrast, axial sections acquired from the lung bases to the pubic symphysis. Coronal and sagittal reformats were performed. For radiation dose reduction, the following was used: automated exposure control, adjustment of mA and/or kV according to patient size. COMPARISON: [facility], CT, CT ABDOMEN PELVIS W CON, 12/16/2023, 11:26. FINDINGS: Image quality: Diagnostic. Lower Chest: Please see separately dictated CT of the chest. ABDOMEN: Liver: No solid mass. Gallbladder: Cholelithiasis with a distended gallbladder, stable compared to prior. No evidence of wall thickening. Biliary ducts: No biliary dilation. Pancreas: No ductal dilation. Spleen: Size is within normal limits. Adrenal Glands: No adrenal nodules. Kidneys and Ureters: No hydronephrosis. No solid mass. No complex renal cystic lesion which requires follow up. Stomach and Bowel: Postoperative changes from ileocecal ectomy with anastomosis. No organized fluid collections are seen. No surrounding inflammation and trace free fluid is noted. Resolution of prior small bowel dilatation. Fluid-filled loops of small bowel are noted with wall thickening. Fluid is seen throughout the colon. Findings may represent enterocolitis. Peritoneum: No abnormal intraperitoneal fluid. No free air. Ventral Wall: Anterior abdominal incision is present.. Abdominal Nodes: No retroperitoneal or mesenteric adenopathy by size criteria. Vessels: Aorta and inferior vena cava are normal in size. Atherosclerotic vascular calcifications. PELVIS: Pelvic Organs: Unremarkable. Bladder: Small gas within the urinary bladder, correlate for recent instrumentation. Pelvic Nodes: No enlarged lymph nodes. Miscellaneous: No inguinal hernias are seen. Bones: No aggressive osseous abnormality. Degenerative changes of the spine. L4 through S1 posterior spinal fixation. IMPRESSION: 1. Postoperative changes from ileocecal ectomy. No organized fluid collections are seen. There is surrounding inflammation and trace free fluid. 2. Resolution of dilated loops of bowel. 3. Fluid-filled loops of small bowel with associated wall thickening. Fluid is seen throughout the colon. Findings may represent an enterocolitis. Dictated by: Poncho Guardado M.D. on 12/30/2023 at 8:51 Approved by: Poncho Guardado M.D. on 12/30/2023 at 8:59 CT scan - chest: Radiologist's Impression: Jamal Orr??68??M??1955 ? Allergy/Adv: No Known Drug Allergies (More??) Close Chest CTA (Signed) Poncho Guardado - 12/30/23 Abdomen/Pelvis CT (Signed) Saeid Guardadoy - 12/30/23 Chest X-Ray (Signed) Declan Francis - 12/30/[address] (Signed) GuardadoPoncho post - 12/22/23 Chest X-Ray (Signed) Matias Torres - 12/17/23 Chest X-Ray (Signed) Maico Hernandes - 12/16/23 Abdomen/Pelvis CT (Signed) Freedom Garcia - 12/16/23 Chest X-Ray (Signed) Angy Gonzalez - 12/16/23 Chest X-Ray (Signed) Angy Gonzalez - 12/14/23 Echocardiogram Ultrasound 12/14/23 Telemetry Strips 12/12/23 Telemetry Strips 12/12/23 Telemetry Strips 12/12/23 Chest X-Ray (Signed) GuardadoPoncho post - 12/11/23 Abdomen/Pelvis CT (Signed) Poncho Guardado - 12/11/23 Lumbar Spine MRI (Signed) Faraz Zazueta - 11/05/22 Chest X-Ray (Signed) CourtneyDaniel camargoel - 02/03/22 Chest X-Ray (Signed) CourtneySanjay - 02/03/22 Chest X-Ray (Signed) Ronald Gaming - 02/03/22 Lumbar Spine X-Ray (Signed) Vivi Barrios - 01/30/22 Telemetry Strips 01/30/[address] (Signed) Erlin Ybarra - 12/10/21 Injection Lumbar, Sacrum (Signed) Ronald Gaming - 08/09/21 Injection Lumbar, Sacrum (Signed) Josh Taylor - 05/08/21 Facet Joint Injection X-Ray (Signed) Ronald Gaming - 11/02/20 Facet Joint Injection X-Ray (Signed) Ronald Gaming - 09/21/20 Lumbar Spine MRI (Signed) Faraz Zazueta - 09/04/20 Lumbar Spine X-Ray (Signed) Josh Taylor - 06/01/20 Knee X-Ray (Signed) Josh Taylor - 06/01/20 Knee X-Ray (Signed) Josh Taylor - 06/01/20 [place] [address] CT Scan Report Signed Patient: Jamal Orr MR#: [id number] : 1955 Acct:[id number] Age/Sex: 68 / M Date of Service: 12/30/23 Loc: ED Accession Number: [id number] Procedure: CT angio chest PE protocol Ordering Provider: Shandra Gibson D.O. PROCEDURE: CT ANGIO CHEST PE PROTOCOL INDICATIONS: tachy, hypoxic, recent ileocecetomy, abscess, abd pain TECHNIQUE: After the administration of intravenous contrast, 2 mm thick sections acquired from the pulmonary apices to the posterior costophrenic angles. 3-dimensional maximum intensity projection (MIP) coronal and sagittal reformats were then acquired through the thorax. For radiation dose reduction, the following was used: automated exposure control, adjustment of mA and/or kV according to patient size. COMPARISON: None. FINDINGS: Image quality: Diagnostic. Pulmonary arteries: Pulmonary arteries are normal in size. Extensive bilateral pulmonary emboli involving all lobes with a small saddle component.. Lower Neck: No enlarged lymph nodes. Thyroid: No thyroid nodules which require sonographic follow up, per consensus guidelines. Axillae: No enlarged lymph nodes. Chest Wall: Unremarkable. Bones: Unremarkable. Lungs and Pleura: No pneumothorax or pleural effusions. Consolidation in the right lower lobe versus infarct. Heart: Heart size is normal. Right ventricle is mildly enlarged compared to the left. Mild reflux of contrast into the IVC. No pericardial effusion. Thoracic Vessels: No aortic aneurysm. Mediastinum and Brigette: No enlarged lymph nodes. Esophagus: No wall thickening. No hiatal hernia. Upper Abdomen: Please refer to separately dictated CT of the abdomen. IMPRESSION: Extensive bilateral pulmonary emboli involving all lobes with a small saddle component. Right ventricle is mildly enlarged compared to the left with reflux of contrast into the IVC, concerning for right heart strain. Right lower lobe consolidation versus infarct. Findings communicated to Dr. Gibson at the time of dictation. Dictated by: Poncho Guardado M.D. on 12/30/2023 at 8:45 Approved by: Poncho Guardado M.D. on 12/30/2023 at 8:51 ECG Data Attestation: I personally reviewed and interpreted this ECG as follows: Prior ECG tracings: available for review Interpretation: Sinus tachycardia, rightward, rate of 124 OH 154 QRS 78 QTC of 5 7. EKG rate is STEMI patient has EKG from 12/11/2023 which actually appears similar patient is without chest pain I do not feel this is an ST elevated on his EKG at this time. Repeat EKG shows sinus tachycardia with right bundle-branch block. Of 124, OH 128 QRS of 126 QTC of 477. EKG does appear similar to prior earlier today. Treatment and Disposition Code Status and discussions:: Patient is DNR/DNI MDM Narrative Medical decision making narrative: 68-year-old male presents tachycardic hypotensive hypoxic with recent sepsis, acute hypoxic respiratory failure secondary to gangrenous appendix which had ruptured and patient had ileocecectomy and drain with prolonged hospital stay. Patient is also high-risk for pulmonary emboli according to him and family has not been ambulating at rehab secondary to inability and is not on any form of anticoagulants. Patient and family at bedside both correlate with his POLST form that he is DNR/DNI. CTA chest was obtained to rule out pulmonary emboli. CT abdomen pelvis was obtained as patient does meet septic criteria and has had significant abdominal surgery though exam is overall reassuring. Labs show white count of 13.9 slightly out trended upwards from 12/19/2023, hemoglobin is appropriate at 4 point team 0.9 platelets are 313 predominance of neutrophils. Sodium is 135 potassium 3.7 chloride 104 CO2 is 21 with a BUN 25 and a creatinine 0.92 glucose is 132 lactate 1.3 ALT 67 but otherwise normal LFTs, troponin is 0.066 with a BNP of 8180. Both of these are elevated from his hospital stay. Procalcitonin is 0.106. Repeat troponin trended upwards 2.0 7 7 but still in indeterminate range. CTA chest extensive bilateral pulmonary emboli involving all lobes with a small saddle component, right ventricle mildly enlarged compared to left with the reflex of contrast in the IVC concerning for right heart strain, right lower lobe consolidation versus infarct. CT abdomen pelvis postoperative changes from ileocecal ectomy, no organized fluid collection surrounding inflammation and trace free fluid resolution dilated loops of bowel fluid-filled bowel of small bowel with the associated wall thickening fluid seen throughout colon could represent enterocolitis. Initial EKG computer read as ST elevated [place] appears to be sinus tach with a rightward axis, right bundle-branch block actually appears fairly similar to 12/11/2023 EKG. Was repeated at the with no dynamic changes here in the department read again as sinus tach with right bundle-branch block. Patient was tachycardic, hypotensive, hypoxic meeting septic criteria did receive a L bolus, also received dose of IV antibiotic with Zosyn. CT of the chest found to have bilateral pulmonary PE with small component of saddle embolism patient was started heparin drip. Would avoid lytics at this time as patient is only 18 days postoperative from significant abdominal surgery. PESI Score is 139. Patient is hypotensive tachycardic, hypoxic with new O2 requirements, afford trending troponins with CHF which is new with a BNP of 8180, prior troponins were negative proximally week ago with a BNP in the 400 range in the setting of new pulmonary emboli with small saddle PE. Discussed with patient he maybe a candidate for intervention. After discussion with him and his , they are agreeable for transfer and intervention. Calls out to multiple facilities. Spoke with Dr. Murcia, hospitalist Crissy woodson. Accepts for transfer. Awaiting call back for bed assignment. Discussed labs, findings from today patient has been persistently hypotensive with systolic in the 100s, has not had increasing O2 requirements but on 4 L persistently tachycardic. Discussed suspect patient may end up requiring increasing interventions but so far has been stable. We will continue with current plan for heparin drip, we will hold for any additional fluids at this time. Critical Care Time Critical Care Time Critical Care Time: Yes Total Critical Care Time: 40 Attestation: The high probability of a clinically significant, sudden or life threatening deterioration of the cardiac and pulmonary system(s) required my full and direct attention, intervention and personal management. The aggregate critical care time was [--] minutes. This time is in addition to time spent performing reported procedures but includes the following: [x] Data Review and interpretation [x] Patient assessment and monitoring of vital signs [x] Documentation [x] Medication orders and management Discharge Plan Departure Patient Disposition: [facility] Clinical Impression: Pulmonary embolism, CHF exacerbation Prescriptions: No Action (DME) Syringes 0 .Route .MEDSUPPLY Qty: 1 3RF Dose Instruction: As directed Rx Instructions: As directed metoprolol succinate 25 mg tablet extended release 24 hr 25 mg PO DAILY Qty: 90 2RF citalopram 20 mg tablet 20 mg PO DAILY Qty: 90 0RF lisinopril-hydrochlorothiazide 20-25 mg tablet 1 tab PO DAILY Qty: 90 3RF (DME) MAX NEEDLES 21GX1 Qty: 50 2RF Dose Instruction: As directed Rx Instructions: USE TO INJECT TESTOSTERONE INTRAMUSCULAR ONCE A WEEK duloxetine 60 mg capsule,delayed release(DR/EC) 60 mg PO DAILY Qty: 90 3RF acetaminophen 325 mg Tablet 650 mg PO Q6HR Qty: 60 0RF trazodone 100 mg tablet 100 mg PO BEDTIME gabapentin 300 mg Capsule 300 mg PO BEDTIME Qty: 14 0RF Referrals: Kesha Mcdonald DO [Primary Care Provider] -
[2023-12-30] MEDS: SODIUM CHLORIDE 0.9% 1,000 ML 1000 ML IV (07:45)
[2023-12-30 07:47] LABS: Add Manual Diff / Slide Review NO; Basophils Absolute Auto 100 /uL (0-100); Basophils Percent Auto 0.4 % (0-2); Eosinophils Absolute Auto 0 /uL (0-450); Eosinophils Percent Auto 0.3 % (2-4); Hemoglobin 14.9 g/dL (13.5-17.5); Lymphocytes Absolute Auto 1400 /uL (1100-4500); Lymphocytes Percent Auto 10.2 % (25-40); Mean Corpuscular HGB Conc 32.3 % (30-36); Mean Corpuscular Hemoglobin 28.1 PG (26-34); Mean Corpuscular Volume 86.9 fL (80-100); Monocytes Absolute Auto 1300 /uL (0-900); Monocytes Percent Auto 9.4 % (3-14); Neutrophils Absolute Auto 11100 /uL (1500-7000); Neutrophils Percent Auto 79.7 % (50-75); Platelet Count 313 X10^3/uL (150-400); Red Blood Cell Count 5.29 X10^6/uL (4.5-5.9); Red Cell Distribution Width 13.6 % (11.6-14.8); White Blood Cell Count 13.9 X10^3/uL (4.5-11.0)
--- NOTE | 2023-12-30 07:49 | DI.CT.S_ITS ---
PROCEDURE: CT ANGIO CHEST PE PROTOCOL INDICATIONS: tachy, hypoxic, recent ileocecetomy, abscess, abd pain TECHNIQUE: After the administration of intravenous contrast, 2 mm thick sections acquired from the pulmonary apices to the posterior costophrenic angles. 3-dimensional maximum intensity projection (MIP) coronal and sagittal reformats were then acquired through the thorax. For radiation dose reduction, the following was used: automated exposure control, adjustment of mA and/or kV according to patient size. COMPARISON: None. FINDINGS: Image quality: Diagnostic. Pulmonary arteries: Pulmonary arteries are normal in size. Extensive bilateral pulmonary emboli involving all lobes with a small saddle component.. Lower Neck: No enlarged lymph nodes. Thyroid: No thyroid nodules which require sonographic follow up, per consensus guidelines. Axillae: No enlarged lymph nodes. Chest Wall: Unremarkable. Bones: Unremarkable. Lungs and Pleura: No pneumothorax or pleural effusions. Consolidation in the right lower lobe versus infarct. Heart: Heart size is normal. Right ventricle is mildly enlarged compared to the left. Mild reflux of contrast into the IVC. No pericardial effusion. Thoracic Vessels: No aortic aneurysm. Mediastinum and Brigette: No enlarged lymph nodes. Esophagus: No wall thickening. No hiatal hernia. Upper Abdomen: Please refer to separately dictated CT of the abdomen. IMPRESSION: Extensive bilateral pulmonary emboli involving all lobes with a small saddle component. Right ventricle is mildly enlarged compared to the left with reflux of contrast into the IVC, concerning for right heart strain. Right lower lobe consolidation versus infarct. Findings communicated to Dr. Gibson at the time of dictation. Dictated by: Poncho Guardado M.D. on 12/30/2023 at 8:45 Approved by: Poncho Guardado M.D. on 12/30/2023 at 8:51
--- NOTE | 2023-12-30 07:49 | DI.CT.S_ITS ---
PROCEDURE: CT ABDOMEN PELVIS W CON INDICATIONS: tachy, hypoxic, recent ileocecetomy, abscess, abd pain TECHNIQUE: After the administration of intravenous contrast, axial sections acquired from the lung bases to the pubic symphysis. Coronal and sagittal reformats were performed. For radiation dose reduction, the following was used: automated exposure control, adjustment of mA and/or kV according to patient size. COMPARISON: Located Within [facility], CT, CT ABDOMEN PELVIS W CON, 12/16/2023, 11:26. FINDINGS: Image quality: Diagnostic. Lower Chest: Please see separately dictated CT of the chest. ABDOMEN: Liver: No solid mass. Gallbladder: Cholelithiasis with a distended gallbladder, stable compared to prior. No evidence of wall thickening. Biliary ducts: No biliary dilation. Pancreas: No ductal dilation. Spleen: Size is within normal limits. Adrenal Glands: No adrenal nodules. Kidneys and Ureters: No hydronephrosis. No solid mass. No complex renal cystic lesion which requires follow up. Stomach and Bowel: Postoperative changes from ileocecal ectomy with anastomosis. No organized fluid collections are seen. No surrounding inflammation and trace free fluid is noted. Resolution of prior small bowel dilatation. Fluid-filled loops of small bowel are noted with wall thickening. Fluid is seen throughout the colon. Findings may represent enterocolitis. Peritoneum: No abnormal intraperitoneal fluid. No free air. Ventral Wall: Anterior abdominal incision is present.. Abdominal Nodes: No retroperitoneal or mesenteric adenopathy by size criteria. Vessels: Aorta and inferior vena cava are normal in size. Atherosclerotic vascular calcifications. PELVIS: Pelvic Organs: Unremarkable. Bladder: Small gas within the urinary bladder, correlate for recent instrumentation. Pelvic Nodes: No enlarged lymph nodes. Miscellaneous: No inguinal hernias are seen. Bones: No aggressive osseous abnormality. Degenerative changes of the spine. L4 through S1 posterior spinal fixation. IMPRESSION: 1. Postoperative changes from ileocecal ectomy. No organized fluid collections are seen. There is surrounding inflammation and trace free fluid. 2. Resolution of dilated loops of bowel. 3. Fluid-filled loops of small bowel with associated wall thickening. Fluid is seen throughout the colon. Findings may represent an enterocolitis. Dictated by: Poncho Guardado M.D. on 12/30/2023 at 8:51 Approved by: Poncho Guardado M.D. on 12/30/2023 at 8:59
[2023-12-30 07:53] LABS: Alanine Aminotransferase 67 IU/L (<50); Albumin 3.3 g/dL (3.5-5.0); Albumin Globulin Ratio 1.1 (1.0-2.8); Alkaline Phosphatase 105 U/L (38-126); Aspartate Aminotransferase 49 IU/L (17-59); BUN Creatinine Ratio 27.2 (6-22); Bilirubin Total 0.8 mg/dL (0.2-1.3); Blood Urea Nitrogen 25 mg/dL (9-20); Calcium 8.3 mg/dL (8.4-10.2); Carbon Dioxide 21 mmol/L (22-32); Chloride 104 mmol/L (98-107); Estimated Glomerular Filt Rate > 60 mL/min (>60); Glucose 132 mg/dL (80-110); HEMOLYSIS 17 (0-50); Lipase 205 U/L (23-300); Potassium 3.7 mmol/L (3.4-5.1); Sodium 135 mmol/L (137-145); Total Protein 6.3 g/dL (6.3-8.2)
[2023-12-30 07:54] LABS: Lactate (Lactic Acid) 1.3 mmol/L (0.7-2.1)
[2023-12-30 07:55] LABS: INR 1.1 (0.9-1.3); Prothrombin Time 12.9 SECONDS (9.4-12.5)
[2023-12-30 07:58] LABS: PTT Partial Thromboplastin Tim 34 SECONDS (25.1-36.5)
--- NOTE | 2023-12-30 07:58 | EKG_ITS ---
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
[2023-12-30] MEDS: PIPERACILLIN/TAZO 4.5 GM in SODIUM CHLORIDE 0.9% 100 ML IV (08:07)
[2023-12-30 08:10] LABS: Procalcitonin 0.106 ng/mL (<0.5)
[2023-12-30 08:19] LABS: Creatine Kinase 55 U/L (55-170)
[2023-12-30 08:32] LABS: NT-proBNP (BNP-Adult 18+) 8180 pg/mL (<125); Troponin I 0.066 ng/mL (0.01-0.034)
--- NOTE | 2023-12-30 08:52 | PC.NURSE ---
brief changed at 0812
[2023-12-30] MEDS: HEPARIN 5,000 UNIT/ML VIAL 8000 UNIT IV (09:03)
[2023-12-30] MEDS: HEPARIN DRIP 25,000 UNIT/500 ML IV.SOLN 36.741 UNIT IV (09:04)
[2023-12-30 09:07] LABS: Appearance Urine UA CLEAR; Bilirubin Urine UA NEGATIVE (NEGATIVE); Color Urine UA YELLOW; Glucose Urine UA NEGATIVE (Negative); Ketones Urine UA TRACE (NEGATIVE); Leukocyte Esterase Urine UA NEGATIVE (NEGATIVE); Nitrite Urine UA NEGATIVE (Negative); Occult Blood Urine UA TRACE-INTACT (Negative); Protein Urine UA NEGATIVE (Negative); Specific Gravity Urine UA <=1.005 (1.000-1.035); Urobilinogen Urine UA 0.2 E.U./dL (0.2); pH Urine UA 6.5 (4.5-8.0)
--- NOTE | 2023-12-30 09:10 | EKG_ITS ---
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
[2023-12-30 09:19] LABS: RBC Urine 0-1/HPF (0-5/HPF); Urine Volume 10mL (spun)
[2023-12-30 09:20] LABS: Bacteria Urine None Seen; Culture Indicated Urine Cult Not Indicated; Squamous Epithelial Cell Urine None Seen (0-5/HPF); WBC Urine 0-1/HPF (0-5/HPF)
[2023-12-30 09:51] LABS: Troponin I 0.072 ng/mL (0.01-0.034)
--- NOTE | 2023-12-30 12:53 | PC.NURSE ---
Called Sharon, let her know that pt is now leaving for [facility].
--- NOTE | 2024-01-06 11:55 | PC.NURSE ---
late entry- per RN the heparin drip remained infusing at the time of transfer to higher level of care.
== END 2023-12-30 12:50 | disposition short-term general hospital (02) ==
PROVIDERS: Emergency Provider Emergency Medicine; Family Provider Pediatrics; PCP Family Medicine
DX: I26.99 Other pulmonary embolism without acute cor pulmonale (principal); I50.9 Heart failure, unspecified; I45.10 Unspecified right bundle-branch block; R00.0 Tachycardia, unspecified; R09.02 Hypoxemia
CPT/HCPCS: 36415; 51798; 71045; 71275; 74177; 80053; 81001; 82550; 83605; 83690; 83880; 84145; 84484; 85025; 85610; 85730; 87040; 93005; 96365; 96366; 96367; 96375; 99285; 99291; J1644; J2543; Q9967

== ENCOUNTER → 2024-01-19 19:38 | Outpatient (ROUT) | payer MEDICARE, MEDICAID, SELFPAY ==
[2023-12-12 02:13] VITALS: BMI 29.9
[2024-01-19 19:43] LABS: Appearance Urine UA CLEAR; Bilirubin Urine UA NEGATIVE (NEGATIVE); Color Urine UA YELLOW; Glucose Urine UA NEGATIVE (Negative); Ketones Urine UA NEGATIVE (NEGATIVE); Leukocyte Esterase Urine UA NEGATIVE (NEGATIVE); Nitrite Urine UA NEGATIVE (Negative); Occult Blood Urine UA NEGATIVE (Negative); Protein Urine UA TRACE (Negative); Specific Gravity Urine UA 1.025 (1.000-1.035); Urobilinogen Urine UA 0.2 E.U./dL (0.2); pH Urine UA 6.5 (4.5-8.0)
[2024-01-19 19:51] LABS: Bacteria Urine Occasional (0-1); Culture Indicated Urine Cult Not Indicated; Mucus Urine 1+ (Negative); RBC Urine 0-1/HPF (0-5/HPF); Squamous Epithelial Cell Urine 0-1 /HPF (0-5/HPF); Urine Volume 10mL (spun); WBC Urine 0-1/HPF (0-5/HPF)
== END ==
PROVIDERS: Family Provider Pediatrics; PCP Family Medicine; Visit Provider Internal Medicine
DX: C48.1 Malignant neoplasm of specified parts of peritoneum (principal)
CPT/HCPCS: 81001

== ENCOUNTER 2024-02-15 12:10 | Emergency (ER) | payer MEDICARE, MEDICAID, SELFPAY ==
[2023-12-12 02:13] VITALS: BMI 29.9
[2024-02-15] VITALS (9 sets, daily range): BP systolic 127–149; BP diastolic 73–93; PULSE 60–88; RESP 14–20; O2SAT 94–96; BMI 27.5
--- NOTE | 2024-02-15 12:21 | DI.CT.S_ITS ---
PROCEDURE: CT HEAD/BRAIN WO CON INDICATIONS: fall on eliquis TECHNIQUE: Noncontrast 4.5 mm thick angled axial sections acquired from the foramen magnum to the vertex, with coronal and sagittal reformats. For radiation dose reduction, the following was used: automated exposure control, adjustment of mA and/or kV according to patient size. COMPARISON: [facility], CT, CT HEAD/BRAIN WO CON, 12/22/2023, 17:47. FINDINGS: Image quality: Diagnostic. CSF spaces: Basal cisterns are patent. No extra-axial fluid collections. The ventricles are symmetric in size and shape. Ventriculomegaly is again shown. The 3rd ventricle measures 1.6 cm which is not significantly changed compared to the previous exam. Brain: No intracranial bleeds or masses. There is cerebral volume loss for age, with resultant ventricular and sulcal prominence. There are periventricular and deep white matter chronic small vessel ischemic changes. There is intracranial internal carotid artery atherosclerosis. Skull and face: Calvarium and visualized facial bones appear intact, without suspicious lesions. Sinuses: Visualized sinuses and mastoids are clear. IMPRESSION: No acute intracranial pathology. Specifically, no evidence of intracranial hemorrhage. Unchanged ventriculomegaly. Dictated by: Abena Harrison M.D. on 02/15/2024 at 12:20 Approved by: Abena Harrison M.D. on 02/15/2024 at 12:25
--- NOTE | 2024-02-15 12:21 | DI.CT.S_ITS ---
PROCEDURE: CT CERVICAL SPINE WO CON INDICATIONS: fall TECHNIQUE: Noncontrast 3 mm thick sections acquired from the skull base to the T4 level. Sagittal and coronal reformats were then constructed. For radiation dose reduction, the following was used: automated exposure control, adjustment of mA and/or kV according to patient size. COMPARISON: None. FINDINGS: Image quality: Excellent. Bones: No fractures or dislocations. Visualized superior ribs are intact. Mild grade 1 retrolisthesis of C4 on C5 is shown with endplate sclerosis and osteophytosis at this level as well as disc space narrowing. Soft tissues: Prevertebral soft tissues are normal in thickness. No paravertebral hematomas. No apical pneumothoraces. IMPRESSION: No displaced fracture or traumatic subluxation. Mild degenerative disc disease at C4-C5. Dictated by: Abena Harrison M.D. on 02/15/2024 at 12:17 Approved by: Abena Harrison M.D. on 02/15/2024 at 12:19
--- NOTE | 2024-02-15 12:26 | EKG_ITS ---
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
--- NOTE | 2024-02-15 12:59 | PC.NURSE ---
Patient in rehab to relearn how to walk, dc'd home today and felt very weak in the legs and collapsed against a bookshelf. Small lac on head, bleeding controlled. Patient is on eliquis for blood clots.
--- NOTE | 2024-02-15 13:49 | ED.FALL ---
HPI - Fall General Chief Complaint: Fall Stated Complaint: Hit head, + thinners Time Seen by Provider: 02/15/24 13:39 Source: patient and EMS Mode of arrival: EMS History of Present Illness HPI Narrative: Patient is a 68-year-old male currently on Eliquis for recent pulmonary embolism after perforated appendicitis and prolonged hospital stay presents today with closed head injury. He was in the hospital in December for complicated perforated appendicitis he was discharged to [facility], came to the ED few days later found to have extensive pulmonary embolism in clot burden at which point he was transferred to [facility] for EKOS procedure he was then transferred back to [facility] where he just finished a 2 month rehab and he was discharged home today. He was at home for 2 hours they went to the bathroom and fell and hit his head. They do not have proper toilet support. All of the supportive devices do not quite fit in the bathroom. No loss of consciousness no numbness or tingling. No nausea or vomiting. He denies any sort of neck pain. He has no chest pain. No other injury. Related Data Home Medications Medication Instructions Recorded Confirmed trazodone 100 mg tablet 100 mg PO BEDTIME 12/12/23 12/12/23 Previous Rx's Medication Instructions Recorded Syringes #1 ea 07/06/18 MAX NEEDLES #50 ea 09/26/21 acetaminophen 325 mg tablet 650 mg (2 x 325 mg) PO Q6HR #60 02/02/22 tabs lisinopril 20 1 tab PO DAILY #90 tabs 02/03/23 mg-hydrochlorothiazide 25 mg tablet duloxetine 60 mg capsule,delayed 60 mg PO DAILY #90 caps 08/28/23 release metoprolol succinate 25 mg 25 mg PO DAILY #90 tabs 10/10/23 tablet,extended release 24 hr citalopram 20 mg tablet 20 mg PO DAILY #90 tabs 11/26/23 gabapentin 300 mg capsule 300 mg PO BEDTIME #14 caps 12/23/23 Allergies Allergy/AdvReac Type Severity Reaction Status Date / Time No Known Drug Allergies Allergy Verified 12/11/23 21:59 Patient History Medical History Influenza A Anesthesia Gait instability 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 Bleeding from ear 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) Congestive heart failure Coronary artery aneurysm Pure hypercholesterolemia (07/30/16) Hypogonadism in male (04/23/16) Essential hypertension (04/23/16) Surgical History H/O surgical amputation of finger H/O vasectomy Hx of tonsillectomy Family History Father Heart attack Mother Dementia Sister Cancer Social History household members: spouse and family Smoking Status: Never smoker alcohol intake: former substance use type: does not use Smoking Status: Never smoker Exam Initial Vital Signs Initial Vital Signs: Vital Signs Pulse Rate 87 02/15/24 12:12 Pulse Oximetry 96 02/15/24 12:12 GENERAL: Alert pleasant well-appearing 68-year-old male HEENT: Head small abrasion noted right parietal side no laceration,EOMI, pupils reactive, face symmetric, moist mucous membranes NECK: No vertebral tenderness no step-off full flexion-extension and rotation CARDIOVASCULAR: Regular rate and rhythm without murmurs, rubs or gallops. RESPIRATORY: Breath sounds equal bilaterally, no wheezes rales or rhonchi. ABDOMEN: Soft, nontender. Normoactive bowel sounds all 4 quadrants. No guarding or rebound. EXTREMITIES: Normal range of motion, no clubbing or edema. Neurovascularly intact NEUROLOGICAL: Alert and oriented x4.Normal gait and speech. Cranial nerves II through XII grossly intact. Industrial Methods Consultant strength equal bilaterally SKIN: Warm, dry, no laceration, no petechiae, no rashes or lesions. Course Orders Ordered: ED Orders 02/15/24 12:21 CT cervical spine wo con Stat CT head/brain wo con Stat 02/15/24 12:24 EKG-12 Lead Stat Vital Signs Vital signs: Vital Signs - 8 hr 02/15/24 12:12 02/15/24 12:13 02/15/24 12:13 Pulse Rate 87 88 Respiratory Rate Blood Pressure 149/93 H Pulse Oximetry 96 95 Oxygen Delivery Method 02/15/24 12:15 02/15/24 12:30 02/15/24 12:30 Pulse Rate 85 83 Respiratory Rate 16 Blood Pressure 149/93 H 127/79 Pulse Oximetry 96 94 Oxygen Delivery Method Room Air 02/15/24 12:41 02/15/24 12:41 Pulse Rate 82 Respiratory Rate 20 Blood Pressure 141/85 H Pulse Oximetry 96 Oxygen Delivery Method Room Air MDM - Fall Lab Data Labs: Urine Dip Bedside Urine Glucose Negative Bedside Urine Bilirubin - Negative Bedside Urine Ketone - Negative Urine Specific [place] 1.010 Bedside Urine Occult Blood - Negative Bedside Urine pH 8.0 Bedside Urine Protein - Negative Bedside Urine Urobilinogen - Negative Bedside Urine Nitrite - Negative Bedside Urine Leukocytes - Negative Esterase Imaging Data CT scan - head: Radiologist's Impression: PROCEDURE: CT HEAD/BRAIN WO CON INDICATIONS: fall on eliquis TECHNIQUE: Noncontrast 4.5 mm thick angled axial sections acquired from the foramen magnum to the vertex, with coronal and sagittal reformats. For radiation dose reduction, the following was used: automated exposure control, adjustment of mA and/or kV according to patient size. COMPARISON: [facility], CT, CT HEAD/BRAIN WO CON, 12/22/2023, 17:47. FINDINGS: Image quality: Diagnostic. CSF spaces: Basal cisterns are patent. No extra-axial fluid collections. The ventricles are symmetric in size and shape. Ventriculomegaly is again shown. The 3rd ventricle measures 1.6 cm which is not significantly changed compared to the previous exam. Brain: No intracranial bleeds or masses. There is cerebral volume loss for age, with resultant ventricular and sulcal prominence. There are periventricular and deep white matter chronic small vessel ischemic changes. There is intracranial internal carotid artery atherosclerosis. Skull and face: Calvarium and visualized facial bones appear intact, without suspicious lesions. Sinuses: Visualized sinuses and mastoids are clear. IMPRESSION: No acute intracranial pathology. Specifically, no evidence of intracranial hemorrhage. Unchanged ventriculomegaly. Dictated by: Abena Harrison M.D. on 02/15/2024 at 12:20 Approved by: Abena Harrison M.D. on 02/15/2024 at 12:25 CT - cervical spine: Radiologist's Impression: PROCEDURE: CT CERVICAL SPINE WO CON INDICATIONS: fall TECHNIQUE: Noncontrast 3 mm thick sections acquired from the skull base to the T4 level. Sagittal and coronal reformats were then constructed. For radiation dose reduction, the following was used: automated exposure control, adjustment of mA and/or kV according to patient size. COMPARISON: None. FINDINGS: Image quality: Excellent. Bones: No fractures or dislocations. Visualized superior ribs are intact. Mild grade 1 retrolisthesis of C4 on C5 is shown with endplate sclerosis and osteophytosis at this level as well as disc space narrowing. Soft tissues: Prevertebral soft tissues are normal in thickness. No paravertebral hematomas. No apical pneumothoraces. IMPRESSION: No displaced fracture or traumatic subluxation. Mild degenerative disc disease at C4-C5. Dictated by: Abena Harrison M.D. on 02/15/2024 at 12:17 MDM Narrative Medical decision making narrative: Patient is 68-year-old male presents today ground level fall on [employer]. He has had in complicated last few months with prolonged hospital stay. It sounds as though today's fall was mechanical they do not have proper equipment in the bathroom. We discussed going to [employer] supply [employer] getting a bedside commode for him to use. CT head and neck imaging negative for any acute abnormality. Discussed with him conservative management, ice and pressure as needed. There is no active bleeding no need for repair. Discharge Plan Departure Patient Disposition: Home Clinical Impression: Closed head injury Instructions: Closed Head Injury Activity Restrictions/Additional Instructions: *You have been diagnosed with closed head injury *What to do: At this time I would put some antibiotic ointment on the area of your head. If it starts bleeding I recommend applying pressure with some paper towels for about 60 minutes may also add some ice. Scans today are overall reassuring *Continue to take medications as directed Tylenol as needed for pain Do not take NSAIDs such as ibuprofen Aleve aspirin naproxen Advil or others while taking Eliquis *Follow up with your primary care provider in 2-3 days or call [phone] *Return to ER if you should have increasing confusion nausea vomiting weakness persistent bleeding or any new, worsening or concerning symptoms Prescriptions: No Action (DME) Syringes 0 .Route .MEDSUPPLY Qty: 1 3RF Dose Instruction: As directed Rx Instructions: As directed metoprolol succinate 25 mg tablet extended release 24 hr 25 mg PO DAILY Qty: 90 2RF citalopram 20 mg tablet 20 mg PO DAILY Qty: 90 0RF lisinopril-hydrochlorothiazide 20-25 mg tablet 1 tab PO DAILY Qty: 90 3RF (DME) MAX NEEDLES 21GX1 Qty: 50 2RF Dose Instruction: As directed Rx Instructions: USE TO INJECT TESTOSTERONE INTRAMUSCULAR ONCE A WEEK duloxetine 60 mg capsule,delayed release(DR/EC) 60 mg PO DAILY Qty: 90 3RF acetaminophen 325 mg Tablet 650 mg PO Q6HR Qty: 60 0RF trazodone 100 mg tablet 100 mg PO BEDTIME gabapentin 300 mg Capsule 300 mg PO BEDTIME Qty: 14 0RF Referrals: Kesha Mcdonald DO [Primary Care Provider] - Stand Alone Forms: Patient Portal/API/Survey
--- NOTE | 2024-02-15 14:15 | PC.NURSE ---
Modified trauma was completed with Sissy RN, this RN does not have her [facility]
== END 2024-02-15 14:12 | disposition home or self-care (01) ==
PROVIDERS: Emergency Provider Emergency Medicine; Family Provider Pediatrics; PCP Family Medicine
DX: S09.8XXA Other specified injuries of head, initial encounter (principal); W18.30XA Fall on same level, unspecified, initial encounter; Z79.01 Long term (current) use of anticoagulants
CPT/HCPCS: 70450; 72125; 81003; 93005; 99283; 99284

== ENCOUNTER → 2024-02-23 11:01 | Outpatient (CLI) | payer MEDICARE, MEDICAID, SELFPAY ==
[2023-12-12 02:13] VITALS: BMI 29.9
--- NOTE | 2024-02-23 11:03 | DI.RAD.S_ITS ---
PROCEDURE: XR CHEST 2V INDICATIONS: congestive heart failure TECHNIQUE: 2 views of the chest were acquired. COMPARISON: [facility], CR, XR CHEST 1V, 12/30/2023, 7:42. FINDINGS: Surgical changes and devices: None. Lungs and pleura: Lungs are clear. Chronic asymmetric right-sided diaphragm elevation. No pleural effusions or pneumothorax. Mediastinum: Mediastinal contours are normal. Heart size is normal. Bones and chest wall: No suspicious bony abnormalities. Soft tissues appear unremarkable. IMPRESSION: No radiographic evidence of acute CHF Dictated by: Angy Gonzalez M.D. on 02/23/2024 at 14:36 Approved by: Angy Gonzalez M.D. on 02/23/2024 at 14:37
== END ==
PROVIDERS: Family Provider Pediatrics; PCP Family Medicine; Referring Provider Family Medicine; Visit Provider Family Medicine
DX: Z79.01 Long term (current) use of anticoagulants (principal); Z86.711 Personal history of pulmonary embolism; I50.9 Heart failure, unspecified; Z09 Encounter for follow-up examination after completed treatment for conditions other than malignant neoplasm; I11.0 Hypertensive heart disease with heart failure; I42.9 Cardiomyopathy, unspecified
CPT/HCPCS: 71046

== ENCOUNTER → 2024-04-30 08:45 | Outpatient (CLI) | payer MEDICARE, MEDICAID, SELFPAY ==
[2023-12-12 02:13] VITALS: BMI 29.9
[2024-04-30 10:08] LABS: BUN Creatinine Ratio 28.2 (6-22); Blood Urea Nitrogen 20 mg/dL (9-20); Calcium 9.1 mg/dL (8.4-10.2); Carbon Dioxide 24 mmol/L (22-32); Chloride 102 mmol/L (98-107); Estimated Glomerular Filt Rate > 60 mL/min (>60); Glucose 154 mg/dL (80-110); HEMOLYSIS < 15 (0-50); Sodium 139 mmol/L (137-145)
== END ==
PROVIDERS: Family Provider Pediatrics; PCP Family Medicine; Referring Provider Internal Medicine Cardiovascular Disease; Visit Provider Internal Medicine Cardiovascular Disease
DX: R60.9 Edema, unspecified (principal)
CPT/HCPCS: 36415; 80048

== ENCOUNTER → 2024-06-24 09:46 | Outpatient (CLI) | payer MEDICARE, MEDICAID, SELFPAY ==
[2023-12-12 02:13] VITALS: BMI 29.9
[2024-06-24 11:15] LABS: Blood Urea Nitrogen 20 mg/dL (9-20); Calcium 9.4 mg/dL (8.4-10.2); Carbon Dioxide 26 mmol/L (22-32); Chloride 101 mmol/L (98-107); Estimated Glomerular Filt Rate > 60 mL/min (>60); Glucose 154 mg/dL (70-99); HEMOLYSIS < 15 (0-50); Sodium 138 mmol/L (137-145)
== END ==
PROVIDERS: Family Provider Pediatrics; PCP Family Medicine; Referring Provider Internal Medicine Cardiovascular Disease; Visit Provider Internal Medicine Cardiovascular Disease
DX: I42.8 Other cardiomyopathies (principal)
CPT/HCPCS: 36415; 80048

== ENCOUNTER 2024-08-19 08:56 | Emergency (ER) | payer MEDICARE, MEDICAID, SELFPAY ==
[2023-12-12 02:13] VITALS: BMI 29.9
[2024-08-19 09:17] VITALS: BP 162/107; PULSE 114; RESP 20; TEMP 36.6; O2SAT 95; BMI 28.2
--- NOTE | 2024-08-19 10:32 | ED.BACK ---
HPI - Back Pain/Injury General Chief Complaint: Back Pain/Injury Stated Complaint: Re injured his lower spine x 2 days Time Seen by Provider: 08/19/24 10:18 History of Present Illness HPI Narrative: 69-year-old gentleman history of pulmonary embolism on Eliquis with history of back fusion surgery L4-L5 S1 in 2021 walks with a cane as a baseline to 3 days ago was coming back from the toilet when his legs gave out on him any gently laid himself down but as he was attempting to get back up himself he started to experience low back pain in the middle of the back and in the lower right side as well and despite being on Lyrica he has had no significant relief of symptoms. Patient denies fever chills urinary complaints testicular pain penile discharge or worsening of numbness tingling down the legs but having difficulty ambulating at this time sitting in lying down makes it better. Other than what is stated 14 point review of system is negative Related Data Previous Rx's ?Medication ?Instructions ?Recorded Syringes #1 ea 07/06/18 MAX NEEDLES #50 ea 09/26/21 acetaminophen 325 mg tablet 650 mg (2 x 325 mg) PO Q6HR #60 02/02/22 tabs hydrochlorothiazide 25 mg tablet 25 mg PO QAM #30 tabs 02/23/24 apixaban 5 mg tablet 5 mg PO BID #60 tabs 03/18/24 trazodone 100 mg tablet 100 mg PO BEDTIME #90 tabs 05/06/24 citalopram 20 mg tablet 20 mg PO DAILY #90 tabs 05/20/24 gabapentin 300 mg capsule 300 mg PO BEDTIME #30 caps 06/16/24 metoprolol succinate 25 mg 25 mg PO DAILY #90 tabs 06/28/24 tablet,extended release 24 hr pregabalin 75 mg capsule (Lyrica) 75 mg PO BID #60 caps 07/28/24 Allergies Allergy/AdvReac Type Severity Reaction Status Date / Time No Known Drug Allergies Allergy Verified 08/19/24 09:17 Review of Systems Review of Systems ROS Unobtainable: All systems reviewed & are unremarkable except as noted in HPI and below Patient History Medical History (Updated 03/01/24 @ 00:00 by ) Tachycardia Acute appendicitis Influenza A Anesthesia Gait instability 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 Bleeding from ear 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 Well-developed patient, in mild distress. HEAD: Atraumatic. Normocephalic. EYES: Pupils equal round and reactive. Extraocular motions intact. No scleral icterus. No injection or drainage. ENT: Nose without bleeding, purulent drainage. Throat without erythema, tonsillar hypertrophy or exudate. Airway patent. NECK: Trachea midline. Non tender CARDIOVASCULAR: Regular rate and rhythm without murmurs, gallops, or rubs. RESPIRATORY: Clear to auscultation. Breath sounds equal bilaterally. No wheezes, rales, or rhonchi. GASTROINTESTINAL: Abdomen soft, non-tender, nondistended. EXTREMITIES: No edema or joint tenderness. BACK: Nontender without deformity or crepitance. No flank tenderness. NEURO: AOx3. GCS of 15 nonfocal neuro exam SKIN: No rash or erythema of visible areas Initial Vital Signs Initial Vital Signs: Vital Signs Temperature 98 F 08/19/24 09:17 Pulse Rate 114 H 08/19/24 09:17 Respiratory Rate 20 08/19/24 09:17 Blood Pressure 162/107 H 08/19/24 09:17 Pulse Oximetry 95 08/19/24 09:17 Oxygen Delivery Method Room Air 08/19/24 09:17 Course Orders Ordered: ED Orders 08/19/24 10:32 CT lumbar spine wo con Stat Discontinued Medications Hydrocodone Bitart/Acetaminophen (Hydrocodone/Acet 5/325 Tablet) 1 tab PO NOW ONE Stop: 08/19/24 10:33 Last Admin: 08/19/24 10:48 Dose: 1 tab Documented By: ELIZABET Ketorolac Tromethamine (Ketorolac 30 Mg/Ml Vial) 30 mg IM NOW ONE Stop: 08/19/24 10:33 Last Admin: 08/19/24 10:48 Dose: 30 mg Documented By: ELIZABET Vital Signs Vital signs: Vital Signs - 8 hr 08/19/24 09:17 Temperature 98 F Pulse Rate 114 H Respiratory Rate 20 Blood Pressure 162/107 H Pulse Oximetry 95 Oxygen Delivery Method Room Air MDM - Back Pain/Injury Imaging Data Extremity x-ray #1: Radiologist's Impression: [address] [address] [address] Scan Report Signed Patient: Jamal Orr MR#: [id number] : 1955 Acct:[id number] Age/Sex: 69 / M Date of Service: 08/19/24 Loc: ED Accession Number: [id number] Procedure: CT lumbar spine wo con Ordering Provider: Mauro Alvarado D.O. PROCEDURE: CT LUMBAR SPINE WO CON INDICATIONS: pain/trauma/ fusion surgery TECHNIQUE: Noncontrast 3 mm thick sections acquired from the T12 level to the sacrum. Sagittal and coronal reformats were constructed. For radiation dose reduction, the following was used: automated exposure control. COMPARISON: [facility], CT, CT LUMBAR SPINE WO CON, 12/10/2021, 9:13. FINDINGS: Image quality: Excellent. Some images are limited by beam hardening artifacts. Postsurgical changes are now noted with pedicle screws and posterior fixation rods from L4-S1 and intervertebral metallic cages. [id number] dextroscoliosis convex to the right is again noted unchanged. Moderate degenerative changes of the lower thoracic, lumbar spine with disc space narrowing, osteophytes, facet osseous and ligamentous hypertrophic changes unchanged. Probable central disc protrusion at T12-L1 new or progressed. Bilateral neural foraminal narrowing L3-4 L4-5 and L5-S1 mildly progressed. Mild central stenosis L3-[address] evidence of acute fracture, subluxation. Vertebral body heights are grossly normal. IMPRESSION: Degenerative changes. No CT evidence of acute abnormality. If symptoms persist or worsen, or there is high clinical suspicion of acute lumbar abnormality, MRI could be performed. Dictated by: Ford Mcgill M.D. on 08/19/2024 at 12:04 Approved by: Ford Mcgill M.D. on 08/19/2024 at 12:08 MDM Narrative Medical decision making narrative: Vital signs, nurse triage note, medication list, previous ER visits and all imaging studies reviewed. GCS 15 nonfocal neuro exam. Patient given Toradol and Dawn here be discharged on Dawn prescription. CT scan showed degenerative changes no CT evidence of acute abnormality. Probable central disc protrusion at L12-L1 new or progressed. Mild central stenosis L3-L4 unchanged. Differential diagnosis includes strain sprain arthritis spondylolisthesis spondylolysis herniated disc. Return with new or worsening symptoms follow up PCP in 1-2 weeks if no improvement since Discharge Plan Departure Patient Disposition: Home Prescriptions: No Action (DME) Syringes 0 .Route .MEDSUPPLY Qty: 1 3RF Dose Instruction: As directed Rx Instructions: As directed hydrochlorothiazide 25 mg tablet 25 mg PO QAM Qty: 30 3RF apixaban 5 mg tablet 5 mg PO BID Qty: 60 12RF trazodone 100 mg tablet 100 mg PO BEDTIME Qty: 90 1RF citalopram 20 mg tablet 20 mg PO DAILY Qty: 90 3RF gabapentin 300 mg capsule 300 mg PO BEDTIME Qty: 30 3RF metoprolol succinate 25 mg tablet extended release 24 hr 25 mg PO DAILY Qty: 90 2RF pregabalin [Lyrica] 75 mg capsule 75 mg PO BID Qty: 60 3RF (DME) MAX NEEDLES 21GX1 Qty: 50 2RF Dose Instruction: As directed Rx Instructions: USE TO INJECT TESTOSTERONE INTRAMUSCULAR ONCE A WEEK acetaminophen 325 mg Tablet 650 mg PO Q6HR Qty: 60 0RF Referrals: Kesha Mcdonald DO [Primary Care Provider, Family Practice] Stand Alone Forms: Patient Portal/API
[2024-08-19] MEDS: KETOROLAC 30 MG/ML VIAL IM (10:48)
[2024-08-19] MEDS: HYDROCODONE/ACET 5/325 TABLET 1 TAB PO (10:48)
[2024-08-19 13:18] VITALS: BP 164/79; PULSE 82; RESP 16; TEMP 36.6; O2SAT 95
== END 2024-08-19 13:30 | disposition home or self-care (01) ==
PROVIDERS: Emergency Provider Family Medicine; Family Provider Pediatrics; PCP Family Medicine
DX: M54.50 Low back pain, unspecified (principal)
CPT/HCPCS: 72131; 96372; 99283; 99284; J1885

== ENCOUNTER 2024-11-09 16:15 | Outpatient (RCR) | payer MEDICARE, MEDICAID, SELFPAY ==
[2023-12-12 02:13] VITALS: BMI 29.9
--- NOTE | 2024-09-22 15:15 | PT.OPPOC ---
Physical, Occupational & Speech Therapy At [facility] Current Diagnoses Labyrinthine dysfunction, right ear (09/22/24) Muscle weakness (generalized) (09/22/24) Unsteadiness on feet (09/22/24) Other abnormalities of gait and mobility (09/22/24) Visit Care Team Role Provider Type Kesha Mcdonald DO Attending Provider Physician Family Provider Primary Care Provider Referring Provider Specialty: Family Practice Address: [address] [place] [address], [address], [place], [facility] Email: [email or web address] Plan Of Care PT-OP-B Current Condition Start: 09/22/24 17:53 Freq: Status: Active Protocol: Document 09/22/24 14:30 DCW (Rec: 09/23/24 09:43 DCW [id number]) Current Condition History of Current Condition Onset Date Multi-year history Current Complaints Fatigue, weakness, limitations with mobility History of Current Pt is a 69 year old male presenting with a complex Condition medical history. Pt arrives in a wheelchair, his states that they have a walker for him, but he is only able to ambulate limited distances, and wouldn't be able to get back to the gym without the wheelchair. Pt reports he had previously tried PT in 2021 to build up strength and mobility, however his back was giving him a lot of issues, and ended up requiring an L4-5-S1 fusion. Pt reports after his surgery, he worked really hard to build himself back up, got to the point where he was walking with a FWW and trekking poles, but then in January 2024, he had fairly severe appendicitis, during which his appendix burst. Following this surgery , he went to rehab at [facility] he was once again very limited with mobility, and since that time, has largely been very sedentary, with nearly all mobility in his wheelchair. Notes he uses a FWW at home, but his max distance is across the living room. Pt now ready to work to return to using a FWW or trekking poles. He feels he has realistic expectations, and is very motivated to put in the work to improve his functional mobility and regain some independence. Treatment Goals Patient/Caregiver Return to walking with a FWW, or maybe even trekking Goals poles. PT-OP-T Assessment and Plan Start: 09/22/24 17:53 Freq: Status: Active Protocol: Document 09/22/24 14:30 DCW (Rec: 09/23/24 17:57 DCW [id number]) Physical Therapy Assessment Rehab Potential Rehabilitation Fair Potential Evaluation Complexity Number of Personal 3 or More Factors/ Comorbidities Number of Body 4 or More Systems Impaired Clinical Unstable Presentation at Evaluation Impairments Impairments Activity Tolerance,Balance,Functional Activities, Functional Mobility,Gait,Pain,Posture,ROM,Soft Tissue Mobility,Strength,Tone,Transfers,Vestibular Goals Three Impairment Pt unable to walk further than bed->chair at home due to fatigue/weakness Chcf Goal (LTG) Pt to demonstrate ability to ambulate 350' without a rest break using FWW in order to demonstrate improved activity tolerance. LTG Duration 12/21/24 Two Impairment Genao score of 25/56 suggests severe falls risk Chcf Goal (LTG) Pt to improve Genao Balance scale score by at least ten points to 35/56 in order to demonstrate a decrease in falls risk LTG Duration 12/21/24 One Impairment Pt does not have an appropriate home exercise program Short Term Goal (STG Pt to be independent and compliant with an appropriate ) HEP STG Duration 10/23/24 Assessment Summary Assessment Pt presents with a complex medical history and exhibits fairly significant weakness, decreased activity tolerance, increased falls risk, and general deconditioning. Pt limited with nearly all activities, mainly due to quick fatigue and weakness. Pt is unable to walk further than 10-20 feet, or stand longer than two minutes. Pt's score on the Genao Balance Scale indicates a fairly severe falls risk. Pt will likely benefit from skilled therapy focusing on strengthening, improving balance and activity tolerance, gait training and assistive device use. Physical Therapy Plan Frequency and Duration Frequency of 2x/Week Treatment Plan of Care Start 09/22/24 Plan of Care End 12/21/24 Date Therapeutic Interventions Therapeutic Balance Training,Coordination Training,Gait Training, Interventions Home Exercise Program,Joint Mobilizations,Manual Therapy,Neuromuscular Re-education,Orthotic/Prosthetic Management,Patient/Caregiver Education,Self-Care/Home Management,Soft Tissue Mobilization,Therapeutic Activities,Therapeutic Exercises,Wheelchair Management Next Visit Focus/Plan Next Note Type Treatment Note Next Visit Plan Attempt TUG and 30sStS tests, work on strengthening, activity tolerance, and balance Plan of Care Dates Plan of Care Start Date 09/22/24 Plan of Care End Date 12/21/24 Electronically Signed by: Rishi Babb, PT 09/24/24 0852 If you are in agreement with this Plan of Care, please return a signed and dated copy. I have reviewed this Plan of Care and certify that the skilled therapy services above are required to meet the patient?s needs. Physician Signature Date Printed Name and Credentials Clinical Instructor Signature Printed Name and Credentials
--- NOTE | 2024-09-22 15:15 | PT.OIE ---
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 Hypogonadism in male (04/23/16) Influenza A Pure hypercholesterolemia (07/30/16) Tachycardia Past Surgical History (Last Reviewed 12/30/23 @ 07:52 by Shandra Gibson DO) H/O surgical amputation of finger H/O vasectomy Hx of tonsillectomy Visit Care Team Role Provider Type Kesha Mcdonald DO Attending Provider Physician Family Provider Primary Care Provider Referring Provider Specialty: Family Practice Address: [address] [place] [address], [address], [facility] Email: [email or web address] Physical Therapy Initial Evaluation PT-OP-A Visit Information Start: 09/22/24 17:53 Freq: Status: Active Protocol: Document 09/22/24 14:30 DCW (Rec: 09/22/24 17:54 DCW [id number]) Out-Patient Physical Therapy Visit Information Visit Information Visit Type Initial Evaluation Visit Start Time 14:30 Visit Stop Time 15:15 Visit Number 1 Number of SEISMOGRAPH CHIEF Visits 0 PT-OP-B Current Condition Start: 09/22/24 17:53 Freq: Status: Active Protocol: Document 09/22/24 14:30 DCW (Rec: 09/23/24 09:43 DCW [id number]) Current Condition History of Current Condition Onset Date Multi-year history Current Complaints Fatigue, weakness, limitations with mobility History of Current Pt is a 69 year old male presenting with a complex Condition medical history. Pt arrives in a wheelchair, his states that they have a walker for him, but he is only able to ambulate limited distances, and wouldn't be able to get back to the gym without the wheelchair. Pt reports he had previously tried PT in 2021 to build up strength and mobility, however his back was giving him a lot of issues, and ended up requiring an L4-5-S1 fusion. Pt reports after his surgery, he worked really hard to build himself back up, got to the point where he was walking with a FWW and trekking poles, but then in January 2024, he had fairly severe appendicitis, during which his appendix burst. Following this surgery , he went to rehab at [facility] he was once again very limited with mobility, and since that time, has largely been very sedentary, with nearly all mobility in his wheelchair. Notes he uses a FWW at home, but his max distance is across the living room. Pt now ready to work to return to using a FWW or trekking poles. He feels he has realistic expectations, and is very motivated to put in the work to improve his functional mobility and regain some independence. Treatment Goals Patient/Caregiver Return to walking with a FWW, or maybe even trekking Goals poles. PT-OP-C Subjective Start: 09/22/24 17:53 Freq: Status: Active Protocol: Document 09/22/24 14:30 DCW (Rec: 09/22/24 17:54 DC [id number]) OP-PT Subjective Patient Comments Patient Comments I'm really happy to be in here. I'm going to work hard with this. PT-OP-D Balance Start: 09/22/24 17:53 Freq: Status: Active Protocol: Document 09/22/24 14:30 DCW (Rec: 09/22/24 17:58 DCW [id number]) Genao Balance Assessment Evaluation Sitting to Standing Independent w/Hands Ability Unsupported Stance Supervision- 2 minutes Sitting Unsupported, Safely- 2 minutes Feet on Floor Standing to Sitting Independent, Uncontrolled Ability Transfer Ability Assistance- 1 person Unsupported Stance- Supervision, 10 seconds Eyes Closed Unsupported Stance- Independent, <30 seconds Eyes Open Reaching Forward Safely, 5 inches Standing Pick- Up Object From Supervision Floor Look Behind Shoulder Supervision w/Turning - Standing Turning 360 Degrees Requires Assistance Unsupported Stance, Assist to Prevent Fall Alternating Feet on Stair Unsupported Tandem Assist to Step-15 seconds Stance Unilateral Leg Unable,assist to not fall Stance Total Score Genao Total Score ( 25 out of 56 points) Genao Impairment 40 to 59% Impaired (Score 23-33) Rating PT-OP-M Strength Start: 09/22/24 17:53 Freq: Status: Active Protocol: Document 09/22/24 14:30 DCW (Rec: 09/22/24 17:58 DCW [id number]) Hip Strength Hip Manual Muscle Testing Right Flexion (L2) 3+ Fair+ Extension (S1) 3+ Fair+ Abduction 4- Good- Adduction 4 Good External Rotation 4 Good Internal Rotation 4 Good Left Flexion (L2) 3 Fair Extension (S1) 3+ Fair+ Abduction 4- Good- Adduction 4- Good- External Rotation 4- Good- Internal Rotation 4- Good- Knee Strength Knee Manual Muscle Testing Right Flexion (S2) 4 Good Extension (L3) 4- Good- Left Flexion (S2) 4- Good- Extension (L3) 4- Good- Ankle/Foot Strength Ankle and Foot Manual Muscle Testing Right Dorsiflexion (L4) 4- Good- Left Dorsiflexion (L4) 3+ Fair+ PT-OP-T Assessment and Plan Start: 09/22/24 17:53 Freq: Status: Active Protocol: Document 09/22/24 14:30 DCW (Rec: 09/23/24 17:57 DCW [id number]) Physical Therapy Assessment Rehab Potential Rehabilitation Fair Potential Evaluation Complexity Number of Personal 3 or More Factors/ Comorbidities Number of Body 4 or More Systems Impaired Clinical Unstable Presentation at Evaluation Impairments Impairments Activity Tolerance,Balance,Functional Activities, Functional Mobility,Gait,Pain,Posture,ROM,Soft Tissue Mobility,Strength,Tone,Transfers,Vestibular Goals Three Impairment Pt unable to walk further than bed->chair at home due to fatigue/weakness Chcf Goal (LTG) Pt to demonstrate ability to ambulate 350' without a rest break using FWW in order to demonstrate improved activity tolerance. LTG Duration 12/21/24 Two Impairment Genao score of 25/56 suggests severe falls risk Chcf Goal (LTG) Pt to improve Genao Balance scale score by at least ten points to 35/56 in order to demonstrate a decrease in falls risk LTG Duration 12/21/24 One Impairment Pt does not have an appropriate home exercise program Short Term Goal (STG Pt to be independent and compliant with an appropriate ) HEP STG Duration 10/23/24 Assessment Summary Assessment Pt presents with a complex medical history and exhibits fairly significant weakness, decreased activity tolerance, increased falls risk, and general deconditioning. Pt limited with nearly all activities, mainly due to quick fatigue and weakness. Pt is unable to walk further than 10-20 feet, or stand longer than two minutes. Pt's score on the Genao Balance Scale indicates a fairly severe falls risk. Pt will likely benefit from skilled therapy focusing on strengthening, improving balance and activity tolerance, gait training and assistive device use. Physical Therapy Plan Frequency and Duration Frequency of 2x/Week Treatment Plan of Care Start 09/22/24 Date Plan of Care End 12/21/24 Date Therapeutic Interventions Therapeutic Balance Training,Coordination Training,Gait Training, Interventions Home Exercise Program,Joint Mobilizations,Manual Therapy,Neuromuscular Re-education,Orthotic/Prosthetic Management,Patient/Caregiver Education,Self-Care/Home Management,Soft Tissue Mobilization,Therapeutic Activities,Therapeutic Exercises,Wheelchair Management Next Visit Focus/Plan Next Note Type Treatment Note Next Visit Plan Attempt TUG and 30sStS tests, work on strengthening, activity tolerance, and balance
--- NOTE | 2024-09-30 08:16 | PT.OTN ---
Current Diagnoses Labyrinthine dysfunction, right ear (09/30/24) Muscle weakness (generalized) (09/30/24) Unsteadiness on feet (09/30/24) Other abnormalities of gait and mobility (09/30/24) Physical Therapy Treatment Note PT-OP-A Visit Information Start: 09/22/24 17:53 Freq: Status: Active Protocol: Document 09/30/24 07:36 SP (Rec: 09/30/24 08:18 SP [id number]) Out-Patient Physical Therapy Visit Information Visit Information Visit Type Treatment Note Visit Note attends tx assist with trail wc and awareness support HEP. She or son home most of the time but when they aren't, he stays in bed. Sits EOB uses urinal. Visit Start Time 07:36 Visit Stop Time 08:16 Visit Number 2 Number of GAME WARDEN Visits 1 PT-OP-B Current Condition Start: 09/22/24 17:53 Freq: Status: Active Protocol: Document 09/22/24 14:30 DCW (Rec: 09/23/24 09:43 DCW [id number]) Current Condition History of Current Condition Onset Date Multi-year history Current Complaints Fatigue, weakness, limitations with mobility History of Current Pt is a 69 year old male presenting with a complex Condition medical history. Pt arrives in a wheelchair, his states that they have a walker for him, but he is only able to ambulate limited distances, and wouldn't be able to get back to the gym without the wheelchair. Pt reports he had previously tried PT in 2021 to build up strength and mobility, however his back was giving him a lot of issues, and ended up requiring an L4-5-S1 fusion. Pt reports after his surgery, he worked really hard to build himself back up, got to the point where he was walking with a FWW and trekking poles, but then in January 2024, he had fairly severe appendicitis, during which his appendix burst. Following this surgery , he went to rehab at [facility] he was once again very limited with mobility, and since that time, has largely been very sedentary, with nearly all mobility in his wheelchair. Notes he uses a FWW at home, but his max distance is across the living room. Pt now ready to work to return to using a FWW or trekking poles. He feels he has realistic expectations, and is very motivated to put in the work to improve his functional mobility and regain some independence. Treatment Goals Patient/Caregiver Return to walking with a FWW, or maybe even trekking Goals poles. PT-OP-C Subjective Start: 09/22/24 17:53 Freq: Status: Active Protocol: Document 09/30/24 07:36 SP (Rec: 09/30/24 08:18 SP [id number]) OP-PT Subjective Patient Comments Patient Comments Pt arrives in personal w/c, personal goal walk with FWW and eventually wtih trek poles again. He reports has very low endurance and strength and took alot work out just getting here so might be limited in standing activity tolerance and need alot added help. PT-OP-D Balance Start: 09/22/24 17:53 Freq: Status: Active Protocol: Document 09/22/24 14:30 DCW (Rec: 09/22/24 17:58 DCW [id number]) Genao Balance Assessment Evaluation Sitting to Standing Independent w/Hands Ability Unsupported Stance Supervision- 2 minutes Sitting Unsupported, Safely- 2 minutes Feet on Floor Standing to Sitting Independent, Uncontrolled Ability Transfer Ability Assistance- 1 person Unsupported Stance- Supervision, 10 seconds Eyes Closed Unsupported Stance- Independent, <30 seconds Eyes Open Reaching Forward Safely, 5 inches Standing Pick- Up Object From Supervision Floor Look Behind Shoulder Supervision w/Turning - Standing Turning 360 Degrees Requires Assistance Unsupported Stance, Assist to Prevent Fall Alternating Feet on Stair Unsupported Tandem Assist to Step-15 seconds Stance Unilateral Leg Unable,assist to not fall Stance Total Score Genao Total Score ( 25 out of 56 points) Genao Impairment 40 to 59% Impaired (Score 23-33) Rating PT-OP-M Strength Start: 09/22/24 17:53 Freq: Status: Active Protocol: Document 09/22/24 14:30 DCW (Rec: 09/22/24 17:58 DCW [id number]) Hip Strength Hip Manual Muscle Testing Right Flexion (L2) 3+ Fair+ Extension (S1) 3+ Fair+ Abduction 4- Good- Adduction 4 Good External Rotation 4 Good Internal Rotation 4 Good Left Flexion (L2) 3 Fair Extension (S1) 3+ Fair+ Abduction 4- Good- Adduction 4- Good- External Rotation 4- Good- Internal Rotation 4- Good- Knee Strength Knee Manual Muscle Testing Right Flexion (S2) 4 Good Extension (L3) 4- Good- Left Flexion (S2) 4- Good- Extension (L3) 4- Good- Ankle/Foot Strength Ankle and Foot Manual Muscle Testing Right Dorsiflexion (L4) 4- Good- Left Dorsiflexion (L4) 3+ Fair+ PT-OP-Q Treatments Start: 09/22/24 17:53 Freq: Status: Active Protocol: Document 09/30/24 07:36 SP (Rec: 09/30/24 08:18 SP [id number]) Therapeutic Exercises Sitting Exercises Over head press Sitting Exercise added to HEp with HO Name Side bilateral Resistance dowel with 2# wt Reps/Minutes 10 x2 sets (counts out loud self) Comments tires end of 10th rep LAQ Sitting Exercise added to HEp withg HO Name Side bilateral Reps/Minutes 5 SH x5 reps, 2 sets (counts out loud) Comments provided HO Clamshell Sitting Exercise added to HEP with HO Name Side bilateral Resistance TB #2 teal Reps/Minutes Hold 60 sec (count out loud) then perform 30 reps ( counting out loud) Comments good form and self counting Gait Training Gait Activity FWW Description beginning and end tx Device Used FWW, trial with WB by Distance/Duration 9 ft , 21 fdt Comments cues for tall posture, TKE and foot clearance Neuro Re-Education Treatment Balance Activities 5x STS Reps/Duration 47 sec Comments heavy use of BUE on w/c arms (CGA) TUG Details Assessment Reps/Duration 9 ft Comments 46 sec walk straight to cone (heavy BUE support) unabel turn around wc trail by . CGA-5%A PT-OP-T Assessment and Plan Start: 09/22/24 17:53 Freq: Status: Active Protocol: Document 09/30/24 07:36 SP (Rec: 09/30/24 08:18 SP [id number]) Physical Therapy Assessment Goals Three Impairment Pt unable to walk further than bed->chair at home due to fatigue/weakness Stone Product Fabricator Goal (LTG) Pt to demonstrate ability to ambulate 350' without a rest break using FWW in order to demonstrate improved activity tolerance. LTG Duration 12/21/24 Two Impairment Genao score of 25/56 suggests severe falls risk Prison Goal (LTG) Pt to improve Genao Balance scale score by at least ten points to 35/56 in order to demonstrate a decrease in falls risk LTG Duration 12/21/24 One Impairment Pt does not have an appropriate home exercise program Short Term Goal (STG Pt to be independent and compliant with an appropriate ) HEP STG Duration 10/23/24 Assessment Summary Assessment Pt demonstrates low strength, endurance and fatigues quickly during transfer and standing activities. Was unable to complete TUG test but wrote distance and time completed. Was able to complete 5xSTS with heavy BUE support but not need outside assist today. Does complete gait but low distance tolerance with w/c trailing of 2nd person assist and intermittent cues for posture, TKE and foot clearance for allowance further distance end of tx. Initiated seated HEP for progression strength when sitting for self empowering, education to count out loud for recall/performance can complete EOB and STS with perform with family nearby for safety. Physical Therapy Plan Frequency and Duration Frequency of 2x/Week Treatment Plan of Care Start 09/22/24 Date Plan of Care End 12/21/24 Date Therapeutic Interventions Therapeutic Balance Training,Coordination Training,Gait Training, Interventions Home Exercise Program,Joint Mobilizations,Manual Therapy,Neuromuscular Re-education,Orthotic/Prosthetic Management,Patient/Caregiver Education,Self-Care/Home Management,Soft Tissue Mobilization,Therapeutic Activities,Therapeutic Exercises,Wheelchair Management Next Visit Focus/Plan Next Note Type Treatment Note Next Visit Plan Recheck HEP, work on strengthening, activity tolerance, balance and gait. (Pt personal goal walk further with FWW and eventually use of trek poles.)
--- NOTE | 2024-10-04 09:02 | PT.OTN ---
Current Diagnoses Labyrinthine dysfunction, right ear (10/04/24) Muscle weakness (generalized) (10/04/24) Unsteadiness on feet (10/04/24) Other abnormalities of gait and mobility (10/04/24) Physical Therapy Treatment Note PT-OP-A Visit Information Start: 09/22/24 17:53 Freq: Status: Active Protocol: Document 10/04/24 08:21 SP (Rec: 10/04/24 09:05 SP [id number]) Out-Patient Physical Therapy Visit Information Visit Information Visit Type Treatment Note Visit Note * or son home most of the time but when they aren't , he stays in bed. Sits EOB uses urinal and self HEP performance. Gamily have to provided physical assist during ADLs when needed, state pt fatigues quickly, low endurance. normally brings pt to appt, stays in waiting room unless needed otherwise, willing. states end of tx she follows him a chair while giving support during gait so he can continue keep active WB gait when not working. Visit Start Time 08:24 Visit Stop Time 09:02 Visit Number 3 Number of CAD CAM PROGRAMMER Visits 2 PT-OP-B Current Condition Start: 09/22/24 17:53 Freq: Status: Active Protocol: Document 09/22/24 14:30 DCW (Rec: 09/23/24 09:43 DCW [id number]) Current Condition History of Current Condition Onset Date Multi-year history Current Complaints Fatigue, weakness, limitations with mobility History of Current Pt is a 69 year old male presenting with a complex Condition medical history. Pt arrives in a wheelchair, his states that they have a walker for him, but he is only able to ambulate limited distances, and wouldn't be able to get back to the gym without the wheelchair. Pt reports he had previously tried PT in 2021 to build up strength and mobility, however his back was giving him a lot of issues, and ended up requiring an L4-5-S1 fusion. Pt reports after his surgery, he worked really hard to build himself back up, got to the point where he was walking with a FWW and trekking poles, but then in January 2024, he had fairly severe appendicitis, during which his appendix burst. Following this surgery , he went to rehab at [facility] he was once again very limited with mobility, and since that time, has largely been very sedentary, with nearly all mobility in his wheelchair. Notes he uses a FWW at home, but his max distance is across the living room. Pt now ready to work to return to using a FWW or trekking poles. He feels he has realistic expectations, and is very motivated to put in the work to improve his functional mobility and regain some independence. Treatment Goals Patient/Caregiver Return to walking with a FWW, or maybe even trekking Goals poles. PT-OP-C Subjective Start: 09/22/24 17:53 Freq: Status: Active Protocol: Document 10/04/24 08:21 SP (Rec: 10/04/24 09:05 SP [id number]) OP-PT Subjective Patient Comments Patient Comments Pt reports having bad day, got tuck on stairs getting down/leaving this am and why late (endurance and strength low today). states son looking into portable ramp for front so not having to manage the stairs and wouldn't be doable with their older home. PT-OP-D Balance Start: 09/22/24 17:53 Freq: Status: Active Protocol: Document 09/22/24 14:30 DCW (Rec: 09/22/24 17:58 DCW [id number]) Genao Balance Assessment Evaluation Sitting to Standing Independent w/Hands Ability Unsupported Stance Supervision- 2 minutes Sitting Unsupported, Safely- 2 minutes Feet on Floor Standing to Sitting Independent, Uncontrolled Ability Transfer Ability Assistance- 1 person Unsupported Stance- Supervision, 10 seconds Eyes Closed Unsupported Stance- Independent, <30 seconds Eyes Open Reaching Forward Safely, 5 inches Standing Pick- Up Object From Supervision Floor Look Behind Shoulder Supervision w/Turning - Standing Turning 360 Degrees Requires Assistance Unsupported Stance, Assist to Prevent Fall Alternating Feet on Stair Unsupported Tandem Assist to Step-15 seconds Stance Unilateral Leg Unable,assist to not fall Stance Total Score Genao Total Score ( 25 out of 56 points) Genao Impairment 40 to 59% Impaired (Score 23-33) Rating PT-OP-M Strength Start: 09/22/24 17:53 Freq: Status: Active Protocol: Document 09/22/24 14:30 DCW (Rec: 09/22/24 17:58 DCW [id number]) Hip Strength Hip Manual Muscle Testing Right Flexion (L2) 3+ Fair+ Extension (S1) 3+ Fair+ Abduction 4- Good- Adduction 4 Good External Rotation 4 Good Internal Rotation 4 Good Left Flexion (L2) 3 Fair Extension (S1) 3+ Fair+ Abduction 4- Good- Adduction 4- Good- External Rotation 4- Good- Internal Rotation 4- Good- Knee Strength Knee Manual Muscle Testing Right Flexion (S2) 4 Good Extension (L3) 4- Good- Left Flexion (S2) 4- Good- Extension (L3) 4- Good- Ankle/Foot Strength Ankle and Foot Manual Muscle Testing Right Dorsiflexion (L4) 4- Good- Left Dorsiflexion (L4) 3+ Fair+ PT-OP-Q Treatments Start: 09/22/24 17:53 Freq: Status: Active Protocol: Document 10/04/24 08:21 SP (Rec: 10/04/24 09:05 SP [id number]) Cardio Equipment Recumbent Stepper (Sci-Fit) Duration (Minutes) 4 Resistance 2.5>2 Seat Position 14 Other BUEs, BLEs, speed 25-27>20 mph, 0.44 miles Therapeutic Exercises Sitting Exercises HS curl Sitting Exercise In PT for hamstring strengthening Name Side bilateral Resistance TB #2 teal- CAD CAM PROGRAMMER anchored band Reps/Minutes 2x 10 reps each side Comments cued tall posture/spinal alignment, energy from ski through spine to legs STS Sitting Exercise reviewed for strengthening Name Resistance CGA Equipment Used //bars in PT (with FWW home family assist) Reps/Minutes 5 reps Comments is performing with family home- cues for TKE and glut drive full stand/slow Over head press Sitting Exercise verbal review continue AROM home with trek pole Name LAQ Sitting Exercise reviewed Name Side bilateral Reps/Minutes 10 reps each LE, alternating Comments cued pt count out loud for self carryover home Clamshell Sitting Exercise verbal review today- continue home Name Standing Exercises Side stepping Standing Exercise trialed in PT today for LE strength WB Name Resistance CG/Min A Equipment Used //bars, heavey BUE WB Reps/Minutes 1 length to R needed seated rest, then 1 length to L Comments intermittent cues for TKE, tall posture, foot clearance and stride marching Standing Exercise in PT- CGA via gait belt Name Resistance L weaker than R Equipment Used heavy BUE WB on //bars Reps/Minutes 10 reps alternating with BLEs Comments CAD CAM PROGRAMMER provided support as needed, front of knee of stance LE prevent buckling Self-Care/Home Management Treatment Education Patient Education Body Mechanics,Home Exercise Program,Posture,Safety Other Education Education of upright posture seated HEP and standing with breath to allow active postural alignment and stability awareness and imagery use of engaged posture to engergize body's musculature for stability and activity. CAD CAM PROGRAMMER continued suggestion anyway can get a ramp installed or rent/borrow at this time. PT-OP-T Assessment and Plan Start: 09/22/24 17:53 Freq: Status: Active Protocol: Document 10/04/24 08:21 SP (Rec: 10/04/24 09:05 SP [id number]) Physical Therapy Assessment Goals Three Impairment Pt unable to walk further than bed->chair at home due to fatigue/weakness Usp Goal (LTG) Pt to demonstrate ability to ambulate 350' without a rest break using FWW in order to demonstrate improved activity tolerance. LTG Duration 12/21/24 Two Impairment Genao score of 25/56 suggests severe falls risk Usp Goal (LTG) Pt to improve Genao Balance scale score by at least ten points to 35/56 in order to demonstrate a decrease in falls risk LTG Duration 12/21/24 One Impairment Pt does not have an appropriate home exercise program Short Term Goal (STG Pt to be independent and compliant with an appropriate ) HEP STG Duration 10/23/24 Assessment Summary Assessment Pt works hard, responds well to encouraging cues but does tire quickly, requires rest seated but still being active BLEs while review under instruction of his HEP for repetitive recall. He states uses his HOs home for self recall. He was able to perform stationary marching and side stepping&pivot back to sit today in //bars mobiltiy, requires inermittent cues for TKE/posture/ trunk& LE positioning during pivot and proper hand placement for eccentric control, with close by ouside support CG/15% A today via gait belt. Did not tolerate gait today due to lack of strength and endurance today . Would benefit from gait beginning/end tx with w/c trailing if feel strong that day. Physical Therapy Plan Frequency and Duration Frequency of 2x/Week Treatment Plan of Care Start 09/22/24 Date Plan of Care End 12/21/24 Date Therapeutic Interventions Therapeutic Balance Training,Coordination Training,Gait Training, Interventions Home Exercise Program,Joint Mobilizations,Manual Therapy,Neuromuscular Re-education,Orthotic/Prosthetic Management,Patient/Caregiver Education,Self-Care/Home Management,Soft Tissue Mobilization,Therapeutic Activities,Therapeutic Exercises,Wheelchair Management Next Visit Focus/Plan Next Note Type Treatment Note Next Visit Plan *check endurance daily and monitor activities due to need energy to walk up stairs home after appt. Next appt: check if has any issues getting up stairs after last appt due to bad day and did some standing activities. Recheck HEP, work on strengthening, activity tolerance, balance and gait. (Pt personal goal walk further with FWW and eventually use of trek poles.)
--- NOTE | 2024-10-13 09:46 | PT.OTN ---
Current Diagnoses Labyrinthine dysfunction, right ear (10/13/24) Muscle weakness (generalized) (10/13/24) Unsteadiness on feet (10/13/24) Other abnormalities of gait and mobility (10/13/24) Physical Therapy Treatment Note PT-OP-A Visit Information Start: 09/22/24 17:53 Freq: Status: Active Protocol: Document 10/13/24 09:08 SP (Rec: 10/13/24 09:47 SP [id number]) Out-Patient Physical Therapy Visit Information Visit Information Visit Type Treatment Note Visit Note * (Sharon) brings him, stayed in waiting room today 10/13/24 Visit Start Time 09:08 Visit Stop Time 09:46 Visit Number 4 Number of COPING MACHINE ASSEMBLER Visits 3 Progress Note Due 10/23/24 PT-OP-B Current Condition Start: 09/22/24 17:53 Freq: Status: Active Protocol: Document 09/22/24 14:30 DCW (Rec: 09/23/24 09:43 DCW [id number]) Current Condition History of Current Condition Onset Date Multi-year history Current Complaints Fatigue, weakness, limitations with mobility History of Current Pt is a 69 year old male presenting with a complex Condition medical history. Pt arrives in a wheelchair, his states that they have a walker for him, but he is only able to ambulate limited distances, and wouldn't be able to get back to the gym without the wheelchair. Pt reports he had previously tried PT in 2021 to build up strength and mobility, however his back was giving him a lot of issues, and ended up requiring an L4-5-S1 fusion. Pt reports after his surgery, he worked really hard to build himself back up, got to the point where he was walking with a FWW and trekking poles, but then in January 2024, he had fairly severe appendicitis, during which his appendix burst. Following this surgery , he went to rehab at [facility] he was once again very limited with mobility, and since that time, has largely been very sedentary, with nearly all mobility in his wheelchair. Notes he uses a FWW at home, but his max distance is across the living room. Pt now ready to work to return to using a FWW or trekking poles. He feels he has realistic expectations, and is very motivated to put in the work to improve his functional mobility and regain some independence. Treatment Goals Patient/Caregiver Return to walking with a FWW, or maybe even trekking Goals poles. PT-OP-C Subjective Start: 09/22/24 17:53 Freq: Status: Active Protocol: Document 10/13/24 09:08 SP (Rec: 10/13/24 09:47 SP [id number]) OP-PT Subjective Patient Comments Patient Comments Pt reports was very weak after last tx, can't recall all sequence of events but stated after last tx when got home rememebered was jackie round in driveway and neighbor nurse helped get him back into his w/c. Pt couldn't recall all that happened, need to ask . PT-OP-D Balance Start: 09/22/24 17:53 Freq: Status: Active Protocol: Document 09/22/24 14:30 DCW (Rec: 09/22/24 17:58 DCW [id number]) Genao Balance Assessment Evaluation Sitting to Standing Independent w/Hands Ability Unsupported Stance Supervision- 2 minutes Sitting Unsupported, Safely- 2 minutes Feet on Floor Standing to Sitting Independent, Uncontrolled Ability Transfer Ability Assistance- 1 person Unsupported Stance- Supervision, 10 seconds Eyes Closed Unsupported Stance- Independent, <30 seconds Eyes Open Reaching Forward Safely, 5 inches Standing Pick- Up Object From Supervision Floor Look Behind Shoulder Supervision w/Turning - Standing Turning 360 Degrees Requires Assistance Unsupported Stance, Assist to Prevent Fall Alternating Feet on Stair Unsupported Tandem Assist to Step-15 seconds Stance Unilateral Leg Unable,assist to not fall Stance Total Score Genao Total Score ( 25 out of 56 points) Genao Impairment 40 to 59% Impaired (Score 23-33) Rating PT-OP-M Strength Start: 09/22/24 17:53 Freq: Status: Active Protocol: Document 09/22/24 14:30 DCW (Rec: 09/22/24 17:58 DCW [id number]) Hip Strength Hip Manual Muscle Testing Right Flexion (L2) 3+ Fair+ Extension (S1) 3+ Fair+ Abduction 4- Good- Adduction 4 Good External Rotation 4 Good Internal Rotation 4 Good Left Flexion (L2) 3 Fair Extension (S1) 3+ Fair+ Abduction 4- Good- Adduction 4- Good- External Rotation 4- Good- Internal Rotation 4- Good- Knee Strength Knee Manual Muscle Testing Right Flexion (S2) 4 Good Extension (L3) 4- Good- Left Flexion (S2) 4- Good- Extension (L3) 4- Good- Ankle/Foot Strength Ankle and Foot Manual Muscle Testing Right Dorsiflexion (L4) 4- Good- Left Dorsiflexion (L4) 3+ Fair+ PT-OP-Q Treatments Start: 09/22/24 17:53 Freq: Status: Active Protocol: Document 10/13/24 09:08 SP (Rec: 10/13/24 09:47 SP [id number]) Therapeutic Exercises Sitting Exercises STS Sitting Exercise reviewed for strengthening Name Resistance CGA Equipment Used front //bars in PT/ UE push off w/c arms (with FWW home family assist) Reps/Minutes 3 reps 30 sec, trialed 4th but unable full TKE and Glut stand 41 sec total Comments cues for TKE and glut drive full stand/slow Over head press Sitting Exercise Reviewed HEP Name Side bilateral Resistance dowel 4# leg wt Reps/Minutes 10 repsx2 Comments cued good press over top of head LAQ Sitting Exercise reviewed Name Side bilateral Reps/Minutes 5 SH x5, 2 sets (written on on HEP) Comments cued pt count out loud (for self carryover home review I) Clamshell Sitting Exercise verbal review today- continue home Name Side bilateral Resistance TB #2 teal Reps/Minutes Hold 60 sec (count out loud) then perform 15 reps ( counting out loud) Comments good form, cues hold the 60 during PT (forgets hold at home) Other Exercises WC Mobility: flex/ext knees Other Exercise Name for LE strengthening: LE w/c mobility Resistance AROM 1 lap, COPING MACHINE ASSEMBLER manual resistance bwd moderate, fwd min 2laps Reps/Minutes 30 ft length tile hallway x3 laps total Comments COPING MACHINE ASSEMBLER steared against resistance, cues for foot clearance and incr LE effort Therapeutic Activity Therapeutic Activity Transfers Name w/c> chair with FWW Reps/Minutes 1 reps each direction Comments cues for TKE, improved stnding stability, good FWW and proper hand placement Gait Training Gait Activity FWW Description beginning and end tx Device Used FWW, trialed w/c by PT AIde Distance/Duration 25 ft Comments continuous cues for tall posture & knee straight each step Self-Care/Home Management Treatment Education Patient Education Home Exercise Program,Safety Other Education ed pt initially/throughout tx and end tx: wc BLEs knees straight gait/transfers improved posture and stabiltiy and including w/c mobility BLEs only for LE strengthening to improved transfers and progress gait tolerance. PT-OP-T Assessment and Plan Start: 09/22/24 17:53 Freq: Status: Active Protocol: Document 10/13/24 09:08 SP (Rec: 10/13/24 09:47 SP [id number]) Physical Therapy Assessment Goals Three Impairment Pt unable to walk further than bed->chair at home due to fatigue/weakness Table Games Shift Manager Goal (LTG) Pt to demonstrate ability to ambulate 350' without a rest break using FWW in order to demonstrate improved activity tolerance. LTG Duration 12/21/24 Two Impairment Genao score of 25/56 suggests severe falls risk Table Games Shift Manager Goal (LTG) Pt to improve Genao Balance scale score by at least ten points to 35/56 in order to demonstrate a decrease in falls risk LTG Duration 12/21/24 One Impairment Pt does not have an appropriate home exercise program Short Term Goal (STG Pt to be independent and compliant with an appropriate ) HEP STG Duration 10/23/24 Assessment Summary Assessment Pt good effort during ther ex with cues especially during initiated LE w/c mobility to support strengthening when has decreased endurance standing activities. Discussed with and patient would be great if he continued LE seated in w/c mobility at home if space for carryover. Pt continues to demonstrate decreased endurance standing activities, needs rests and mindful of actvity so can have enough endurance to transfer and get up stairs home after appt. Physical Therapy Plan Frequency and Duration Frequency of 2x/Week Treatment Plan of Care Start 09/22/24 Date Plan of Care End 12/21/24 Date Therapeutic Interventions Therapeutic Balance Training,Coordination Training,Gait Training, Interventions Home Exercise Program,Joint Mobilizations,Manual Therapy,Neuromuscular Re-education,Orthotic/Prosthetic Management,Patient/Caregiver Education,Self-Care/Home Management,Soft Tissue Mobilization,Therapeutic Activities,Therapeutic Exercises,Wheelchair Management Next Visit Focus/Plan Next Note Type Treatment Note Next Visit Plan *check endurance daily and monitor activities due to need energy to walk up stairs home after appt, has been stated unable get ramp. Next appt: check if has any issues getting up stairs after last appt due to bad day and did some standing activities. Recheck HEP, work on strengthening, activity tolerance, balance and gait. (Pt personal goal walk further with FWW and eventually use of trek poles.)
--- NOTE | 2024-10-19 16:59 | PT.OTN ---
Current Diagnoses Labyrinthine dysfunction, right ear (10/19/24) Muscle weakness (generalized) (10/19/24) Unsteadiness on feet (10/19/24) Other abnormalities of gait and mobility (10/19/24) Physical Therapy Treatment Note PT-OP-A Visit Information Start: 09/22/24 17:53 Freq: Status: Active Protocol: Document 10/19/24 16:14 DCW (Rec: 10/19/24 16:59 DCW [id number]) Out-Patient Physical Therapy Visit Information Visit Information Visit Type Treatment Note Visit Start Time 16:15 Visit Stop Time 17:00 Visit Number 5 Number of FOREST TECHNICIAN Visits 0 Progress Note Due 10/22/24 Evaluation Information Evaluation Date 09/22/24 PT-OP-B Current Condition Start: 09/22/24 17:53 Freq: Status: Active Protocol: Document 09/22/24 14:30 DCW (Rec: 09/23/24 09:43 DCW [id number]) Current Condition History of Current Condition Onset Date Multi-year history Current Complaints Fatigue, weakness, limitations with mobility History of Current Pt is a 69 year old male presenting with a complex Condition medical history. Pt arrives in a wheelchair, his states that they have a walker for him, but he is only able to ambulate limited distances, and wouldn't be able to get back to the gym without the wheelchair. Pt reports he had previously tried PT in 2021 to build up strength and mobility, however his back was giving him a lot of issues, and ended up requiring an L4-5-S1 fusion. Pt reports after his surgery, he worked really hard to build himself back up, got to the point where he was walking with a FWW and trekking poles, but then in January 2024, he had fairly severe appendicitis, during which his appendix burst. Following this surgery , he went to rehab at [facility] he was once again very limited with mobility, and since that time, has largely been very sedentary, with nearly all mobility in his wheelchair. Notes he uses a FWW at home, but his max distance is across the living room. Pt now ready to work to return to using a FWW or trekking poles. He feels he has realistic expectations, and is very motivated to put in the work to improve his functional mobility and regain some independence. Treatment Goals Patient/Caregiver Return to walking with a FWW, or maybe even trekking Goals poles. PT-OP-C Subjective Start: 09/22/24 17:53 Freq: Status: Active Protocol: Document 10/19/24 16:14 DCW (Rec: 10/19/24 16:59 DCW [id number]) OP-PT Subjective Patient Comments Patient Comments Pt able to get into his house okay following last visit , was not too fatigued. PT-OP-D Balance Start: 09/22/24 17:53 Freq: Status: Active Protocol: Document 09/22/24 14:30 DCW (Rec: 09/22/24 17:58 DCW [id number]) Genao Balance Assessment Evaluation Sitting to Standing Independent w/Hands Ability Unsupported Stance Supervision- 2 minutes Sitting Unsupported, Safely- 2 minutes Feet on Floor Standing to Sitting Independent, Uncontrolled Ability Transfer Ability Assistance- 1 person Unsupported Stance- Supervision, 10 seconds Eyes Closed Unsupported Stance- Independent, <30 seconds Eyes Open Reaching Forward Safely, 5 inches Standing Pick- Up Object From Supervision Floor Look Behind Shoulder Supervision w/Turning - Standing Turning 360 Degrees Requires Assistance Unsupported Stance, Assist to Prevent Fall Alternating Feet on Stair Unsupported Tandem Assist to Step-15 seconds Stance Unilateral Leg Unable,assist to not fall Stance Total Score Genao Total Score ( 25 out of 56 points) Genao Impairment 40 to 59% Impaired (Score 23-33) Rating PT-OP-M Strength Start: 09/22/24 17:53 Freq: Status: Active Protocol: Document 09/22/24 14:30 DCW (Rec: 09/22/24 17:58 DCW [id number]) Hip Strength Hip Manual Muscle Testing Right Flexion (L2) 3+ Fair+ Extension (S1) 3+ Fair+ Abduction 4- Good- Adduction 4 Good External Rotation 4 Good Internal Rotation 4 Good Left Flexion (L2) 3 Fair Extension (S1) 3+ Fair+ Abduction 4- Good- Adduction 4- Good- External Rotation 4- Good- Internal Rotation 4- Good- Knee Strength Knee Manual Muscle Testing Right Flexion (S2) 4 Good Extension (L3) 4- Good- Left Flexion (S2) 4- Good- Extension (L3) 4- Good- Ankle/Foot Strength Ankle and Foot Manual Muscle Testing Right Dorsiflexion (L4) 4- Good- Left Dorsiflexion (L4) 3+ Fair+ PT-OP-Q Treatments Start: 09/22/24 17:53 Freq: Status: Active Protocol: Document 10/19/24 16:14 DCW (Rec: 10/19/24 16:59 DCW [id number]) Gym Equipment Shuttle Recovery Unilateral Squats Resistance 25# (1 teal) Reps/Time x15 Bilateral squat Resistance 50# (2 teal) Reps/Time x15 Therapeutic Exercises Sitting Exercises Rows Sitting Exercise Rows Name Side bilateral Resistance Green Comments x15 Shoulder Extension Sitting Exercise Shoulder Extension Name Side bilateral Resistance Green Comments x15 PNF Sitting Exercise UE PNF D1/D2 Name Side bilateral Resistance 2# HS curl Sitting Exercise In PT for hamstring strengthening Name Side bilateral Reps/Minutes self-propel w/c Over head press Side bilateral Resistance dowel 5# leg wt Reps/Minutes 2x15 Comments VCs for positioning, energy conservation Standing Exercises Side stepping Standing Exercise Side-stepping Name Resistance // bars Reps/Minutes one lap without break Gait Training Gait Activity FWW Description beginning of tx Device Used FWW, trialed w/c by PT Aide Distance/Duration 31 ft Comments continuous cues for tall posture & knee straight each step, required standing rest break x2 PT-OP-T Assessment and Plan Start: 09/22/24 17:53 Freq: Status: Active Protocol: Document 10/19/24 16:14 DCW (Rec: 10/19/24 16:59 DCW [id number]) Physical Therapy Assessment Impairments Impairments Activity Tolerance,Balance,Functional Activities, Functional Mobility,Gait,Pain,Posture,ROM,Soft Tissue Mobility,Strength,Tone,Transfers,Vestibular Goals Three Impairment Pt unable to walk further than bed->chair at home due to fatigue/weakness Retirement Goal (LTG) Pt to demonstrate ability to ambulate 350' without a rest break using FWW in order to demonstrate improved activity tolerance. LTG Duration 12/21/24 Two Impairment Genao score of 25/56 suggests severe falls risk Retirement Goal (LTG) Pt to improve Genao Balance scale score by at least ten points to 35/56 in order to demonstrate a decrease in falls risk LTG Duration 12/21/24 One Impairment Pt does not have an appropriate home exercise program Short Term Goal (STG Pt to be independent and compliant with an appropriate ) HEP STG Duration 10/23/24 Assessment Summary Assessment Appeared to tolerate well today, pt reminded to inform therapist next visit if he felt we overdid it today. Very good effort, slight improvement in gait distance. Continue working on strength, activity tolerance, energy conservation, and functional mobility. Physical Therapy Plan Frequency and Duration Frequency of 2x/Week Treatment Plan of Care Start 09/22/24 Date Plan of Care End 12/21/24 Date Therapeutic Interventions Therapeutic Balance Training,Coordination Training,Gait Training, Interventions Home Exercise Program,Joint Mobilizations,Manual Therapy,Neuromuscular Re-education,Orthotic/Prosthetic Management,Patient/Caregiver Education,Self-Care/Home Management,Soft Tissue Mobilization,Therapeutic Activities,Therapeutic Exercises,Wheelchair Management Next Visit Focus/Plan Next Note Type Treatment Note Next Visit Plan *check endurance daily and monitor activities due to need energy to walk up stairs home after appt, has been stated unable get ramp. Next appt: check if has any issues getting up stairs after last appt due to bad day and did some standing activities. Recheck HEP, work on strengthening, activity tolerance, balance and gait. (Pt personal goal walk further with FWW and eventually use of trek poles.)
--- NOTE | 2024-10-21 16:52 | PT.OTN ---
Current Diagnoses Labyrinthine dysfunction, right ear (10/21/24) Muscle weakness (generalized) (10/21/24) Unsteadiness on feet (10/21/24) Other abnormalities of gait and mobility (10/21/24) Physical Therapy Treatment Note PT-OP-A Visit Information Start: 09/22/24 17:53 Freq: Status: Active Protocol: Document 10/21/24 16:00 DCW (Rec: 10/21/24 16:50 DCW [id number]) Out-Patient Physical Therapy Visit Information Visit Information Visit Type Progress Note Visit Start Time 16:00 Visit Stop Time 16:45 Visit Number 6 Number of TELEPRINTER Visits 0 Progress Note Due 11/20/24 Evaluation Information Evaluation Date 09/22/24 PT-OP-B Current Condition Start: 09/22/24 17:53 Freq: Status: Active Protocol: Document 09/22/24 14:30 DCW (Rec: 09/23/24 09:43 DCW [id number]) Current Condition History of Current Condition Onset Date Multi-year history Current Complaints Fatigue, weakness, limitations with mobility History of Current Pt is a 69 year old male presenting with a complex Condition medical history. Pt arrives in a wheelchair, his states that they have a walker for him, but he is only able to ambulate limited distances, and wouldn't be able to get back to the gym without the wheelchair. Pt reports he had previously tried PT in 2021 to build up strength and mobility, however his back was giving him a lot of issues, and ended up requiring an L4-5-S1 fusion. Pt reports after his surgery, he worked really hard to build himself back up, got to the point where he was walking with a FWW and trekking poles, but then in January 2024, he had fairly severe appendicitis, during which his appendix burst. Following this surgery , he went to rehab at [facility] he was once again very limited with mobility, and since that time, has largely been very sedentary, with nearly all mobility in his wheelchair. Notes he uses a FWW at home, but his max distance is across the living room. Pt now ready to work to return to using a FWW or trekking poles. He feels he has realistic expectations, and is very motivated to put in the work to improve his functional mobility and regain some independence. Treatment Goals Patient/Caregiver Return to walking with a FWW, or maybe even trekking Goals poles. PT-OP-C Subjective Start: 09/22/24 17:53 Freq: Status: Active Protocol: Document 10/21/24 16:00 DCW (Rec: 10/21/24 16:52 DCW [id number]) OP-PT Subjective Patient Comments Patient Comments Pt once again very happy to be here, felt like last visit was a very good workout, but was still able to get up into his house. PT-OP-D Balance Start: 09/22/24 17:53 Freq: Status: Active Protocol: Document 09/22/24 14:30 DCW (Rec: 09/22/24 17:58 DCW [id number]) Genao Balance Assessment Evaluation Sitting to Standing Independent w/Hands Ability Unsupported Stance Supervision- 2 minutes Sitting Unsupported, Safely- 2 minutes Feet on Floor Standing to Sitting Independent, Uncontrolled Ability Transfer Ability Assistance- 1 person Unsupported Stance- Supervision, 10 seconds Eyes Closed Unsupported Stance- Independent, <30 seconds Eyes Open Reaching Forward Safely, 5 inches Standing Pick- Up Object From Supervision Floor Look Behind Shoulder Supervision w/Turning - Standing Turning 360 Degrees Requires Assistance Unsupported Stance, Assist to Prevent Fall Alternating Feet on Stair Unsupported Tandem Assist to Step-15 seconds Stance Unilateral Leg Unable,assist to not fall Stance Total Score Genao Total Score ( 25 out of 56 points) Genao Impairment 40 to 59% Impaired (Score 23-33) Rating PT-OP-M Strength Start: 09/22/24 17:53 Freq: Status: Active Protocol: Document 09/22/24 14:30 DCW (Rec: 09/22/24 17:58 DCW [id number]) Hip Strength Hip Manual Muscle Testing Right Flexion (L2) 3+ Fair+ Extension (S1) 3+ Fair+ Abduction 4- Good- Adduction 4 Good External Rotation 4 Good Internal Rotation 4 Good Left Flexion (L2) 3 Fair Extension (S1) 3+ Fair+ Abduction 4- Good- Adduction 4- Good- External Rotation 4- Good- Internal Rotation 4- Good- Knee Strength Knee Manual Muscle Testing Right Flexion (S2) 4 Good Extension (L3) 4- Good- Left Flexion (S2) 4- Good- Extension (L3) 4- Good- Ankle/Foot Strength Ankle and Foot Manual Muscle Testing Right Dorsiflexion (L4) 4- Good- Left Dorsiflexion (L4) 3+ Fair+ PT-OP-Q Treatments Start: 09/22/24 17:53 Freq: Status: Active Protocol: Document 10/21/24 16:00 DCW (Rec: 10/21/24 16:50 DCW [id number]) Gym Equipment Shuttle Recovery Unilateral Squats Resistance 25# (1 navy) Reps/Time x12 Bilateral squat Resistance 50# (1 navy) Reps/Time x20 Therapeutic Exercises Sitting Exercises Triceps Extension Sitting Exercise Triceps Extension Name Side bilateral Resistance Lv 3 Reps/Minutes x15 Biceps Curls Sitting Exercise Curls/Reverse Curls Name Side bilateral Resistance 4# Comments x15 each LAQ Sitting Exercise LAQ Name Side bilateral Resistance 2# Reps/Minutes x15 Standing Exercises Side stepping Standing Exercise Side-stepping Name Resistance // bars Reps/Minutes one lap, break group home through Other Exercises Toe-taps Other Exercise Name Toe Taps Side bilateral Resistance 2# Equipment Used 6 step Reps/Minutes x10 Gait Training Gait Activity FWW Description beginning of tx Device Used FWW, trialed w/c by PT Aide Distance/Duration 50 ft Comments continuous cues for tall posture & knee straight each step, required standing rest break x2 PT-OP-T Assessment and Plan Start: 09/22/24 17:53 Freq: Status: Active Protocol: Document 10/21/24 16:00 DCW (Rec: 10/21/24 16:50 DCW [id number]) Physical Therapy Assessment Impairments Impairments Activity Tolerance,Balance,Functional Activities, Functional Mobility,Gait,Pain,Posture,ROM,Soft Tissue Mobility,Strength,Tone,Transfers,Vestibular Goals Three Impairment Pt unable to walk further than bed->chair at home due to fatigue/weakness Alf Goal (LTG) Pt to demonstrate ability to ambulate 350' without a rest break using FWW in order to demonstrate improved activity tolerance. LTG Duration 12/21/24 Two Impairment Genao score of 25/56 suggests severe falls risk Alf Goal (LTG) Pt to improve Genao Balance scale score by at least ten points to 35/56 in order to demonstrate a decrease in falls risk LTG Duration 12/21/24 One Impairment Pt does not have an appropriate home exercise program Short Term Goal (STG Pt to be independent and compliant with an appropriate ) HEP STG Duration 10/23/24 Assessment Summary Assessment continues to fatigue very quickly, but also showing some promising improvements overall. Since first treatment session, gait tolerance has improved from 21 feet to 50 feet. Pt also tolerating increased leg press resistance. Still need to be careful to not overdo activity, or pt has difficulty getting up the stairs into his house. Continue to focus on energy conservation and strengthening. Physical Therapy Plan Frequency and Duration Frequency of 2x/Week Treatment Plan of Care Start 09/22/24 Date Plan of Care End 12/21/24 Date Therapeutic Interventions Therapeutic Balance Training,Coordination Training,Gait Training, Interventions Home Exercise Program,Joint Mobilizations,Manual Therapy,Neuromuscular Re-education,Orthotic/Prosthetic Management,Patient/Caregiver Education,Self-Care/Home Management,Soft Tissue Mobilization,Therapeutic Activities,Therapeutic Exercises,Wheelchair Management Next Visit Focus/Plan Next Note Type Treatment Note Next Visit Plan *check endurance daily and monitor activities due to need energy to walk up stairs home after appt, has been stated unable get ramp. Next appt: check if has any issues getting up stairs after last appt due to bad day and did some standing activities. Recheck HEP, work on strengthening, activity tolerance, balance and gait. (Pt personal goal walk further with FWW and eventually use of trek poles.)
--- NOTE | 2024-10-26 17:03 | PT.OTN ---
Current Diagnoses Labyrinthine dysfunction, right ear (10/26/24) Muscle weakness (generalized) (10/26/24) Unsteadiness on feet (10/26/24) Other abnormalities of gait and mobility (10/26/24) Physical Therapy Treatment Note PT-OP-A Visit Information Start: 09/22/24 17:53 Freq: Status: Active Protocol: Document 10/26/24 16:15 DCW (Rec: 10/26/24 17:03 DCW [id number]) Out-Patient Physical Therapy Visit Information Visit Information Visit Type Treatment Note Visit Start Time 16:15 Visit Stop Time 17:00 Visit Number 7 Number of HELICOPTER DISPATCHER Visits 0 Progress Note Due 11/20/24 Evaluation Information Evaluation Date 09/22/24 PT-OP-B Current Condition Start: 09/22/24 17:53 Freq: Status: Active Protocol: Document 09/22/24 14:30 DCW (Rec: 09/23/24 09:43 DCW [id number]) Current Condition History of Current Condition Onset Date Multi-year history Current Complaints Fatigue, weakness, limitations with mobility History of Current Pt is a 69 year old male presenting with a complex Condition medical history. Pt arrives in a wheelchair, his states that they have a walker for him, but he is only able to ambulate limited distances, and wouldn't be able to get back to the gym without the wheelchair. Pt reports he had previously tried PT in 2021 to build up strength and mobility, however his back was giving him a lot of issues, and ended up requiring an L4-5-S1 fusion. Pt reports after his surgery, he worked really hard to build himself back up, got to the point where he was walking with a FWW and trekking poles, but then in January 2024, he had fairly severe appendicitis, during which his appendix burst. Following this surgery , he went to rehab at [facility] he was once again very limited with mobility, and since that time, has largely been very sedentary, with nearly all mobility in his wheelchair. Notes he uses a FWW at home, but his max distance is across the living room. Pt now ready to work to return to using a FWW or trekking poles. He feels he has realistic expectations, and is very motivated to put in the work to improve his functional mobility and regain some independence. Treatment Goals Patient/Caregiver Return to walking with a FWW, or maybe even trekking Goals poles. PT-OP-C Subjective Start: 09/22/24 17:53 Freq: Status: Active Protocol: Document 10/26/24 16:15 DCW (Rec: 10/26/24 17:03 DCW [id number]) OP-PT Subjective Patient Comments Patient Comments I really like working on that leg press, it's doing a lot of good. PT-OP-D Balance Start: 09/22/24 17:53 Freq: Status: Active Protocol: Document 09/22/24 14:30 DCW (Rec: 09/22/24 17:58 DCW [id number]) Genao Balance Assessment Evaluation Sitting to Standing Independent w/Hands Ability Unsupported Stance Supervision- 2 minutes Sitting Unsupported, Safely- 2 minutes Feet on Floor Standing to Sitting Independent, Uncontrolled Ability Transfer Ability Assistance- 1 person Unsupported Stance- Supervision, 10 seconds Eyes Closed Unsupported Stance- Independent, <30 seconds Eyes Open Reaching Forward Safely, 5 inches Standing Pick- Up Object From Supervision Floor Look Behind Shoulder Supervision w/Turning - Standing Turning 360 Degrees Requires Assistance Unsupported Stance, Assist to Prevent Fall Alternating Feet on Stair Unsupported Tandem Assist to Step-15 seconds Stance Unilateral Leg Unable,assist to not fall Stance Total Score Genao Total Score ( 25 out of 56 points) Genao Impairment 40 to 59% Impaired (Score 23-33) Rating PT-OP-M Strength Start: 09/22/24 17:53 Freq: Status: Active Protocol: Document 09/22/24 14:30 DCW (Rec: 09/22/24 17:58 DCW [id number]) Hip Strength Hip Manual Muscle Testing Right Flexion (L2) 3+ Fair+ Extension (S1) 3+ Fair+ Abduction 4- Good- Adduction 4 Good External Rotation 4 Good Internal Rotation 4 Good Left Flexion (L2) 3 Fair Extension (S1) 3+ Fair+ Abduction 4- Good- Adduction 4- Good- External Rotation 4- Good- Internal Rotation 4- Good- Knee Strength Knee Manual Muscle Testing Right Flexion (S2) 4 Good Extension (L3) 4- Good- Left Flexion (S2) 4- Good- Extension (L3) 4- Good- Ankle/Foot Strength Ankle and Foot Manual Muscle Testing Right Dorsiflexion (L4) 4- Good- Left Dorsiflexion (L4) 3+ Fair+ PT-OP-Q Treatments Start: 09/22/24 17:53 Freq: Status: Active Protocol: Document 10/26/24 16:15 DCW (Rec: 10/26/24 17:03 DCW [id number]) Cardio Equipment Recumbent Elliptical (NuStep) Duration (Minutes) 6 Resistance 4 Seat Position Seat 13, Arms 8 Other VCs for pacing, energy conservation Gym Equipment Shuttle Recovery Unilateral Squats Resistance 25# (1 navy) Reps/Time x12 Bilateral squat Resistance 50# (2 navy) Reps/Time x20 Therapeutic Exercises Sitting Exercises Biceps Curls Sitting Exercise Curls/Reverse Curls Name Side bilateral Resistance 4# Comments x20 each PNF Sitting Exercise UE PNF D1/D2 Name Side bilateral Resistance 2# Gait Training Gait Activity FWW Description beginning of tx Device Used FWW, trialed w/c by PT Aide Distance/Duration 3x20 ft Comments Required two seated rest breaks PT-OP-T Assessment and Plan Start: 09/22/24 17:53 Freq: Status: Active Protocol: Document 10/26/24 16:15 DCW (Rec: 10/26/24 17:03 DCW [id number]) Physical Therapy Assessment Impairments Impairments Activity Tolerance,Balance,Functional Activities, Functional Mobility,Gait,Pain,Posture,ROM,Soft Tissue Mobility,Strength,Tone,Transfers,Vestibular Goals Three Impairment Pt unable to walk further than bed->chair at home due to fatigue/weakness Custodial Goal (LTG) Pt to demonstrate ability to ambulate 350' without a rest break using FWW in order to demonstrate improved activity tolerance. LTG Duration 12/21/24 Two Impairment Genao score of 25/56 suggests severe falls risk Liquor Rectifier Goal (LTG) Pt to improve Genao Balance scale score by at least ten points to 35/56 in order to demonstrate a decrease in falls risk LTG Duration 12/21/24 One Impairment Pt does not have an appropriate home exercise program Short Term Goal (STG Pt to be independent and compliant with an appropriate ) HEP STG Duration 10/23/24 Assessment Summary Assessment Pt doing better with tolerance to activity, although still fatiguing quickly. Struggled a bit more with ambulation today, but had not been active today, and was feeling very tight and stiff trying to ambulate. Pt responded well to NuStep, felt much better after using to get moving. Physical Therapy Plan Frequency and Duration Frequency of 2x/Week Treatment Plan of Care Start 09/22/24 Date Plan of Care End 12/21/24 Date Therapeutic Interventions Therapeutic Balance Training,Coordination Training,Gait Training, Interventions Home Exercise Program,Joint Mobilizations,Manual Therapy,Neuromuscular Re-education,Orthotic/Prosthetic Management,Patient/Caregiver Education,Self-Care/Home Management,Soft Tissue Mobilization,Therapeutic Activities,Therapeutic Exercises,Wheelchair Management Next Visit Focus/Plan Next Note Type Treatment Note Next Visit Plan *check endurance daily and monitor activities due to need energy to walk up stairs home after appt, has been stated unable get ramp. Next appt: check if has any issues getting up stairs after last appt due to bad day and did some standing activities. Recheck HEP, work on strengthening, activity tolerance, balance and gait. (Pt personal goal walk further with FWW and eventually use of trek poles.)
--- NOTE | 2024-10-28 17:02 | PT.OTN ---
Current Diagnoses Labyrinthine dysfunction, right ear (10/28/24) Muscle weakness (generalized) (10/28/24) Unsteadiness on feet (10/28/24) Other abnormalities of gait and mobility (10/28/24) Physical Therapy Treatment Note PT-OP-A Visit Information Start: 09/22/24 17:53 Freq: Status: Active Protocol: Document 10/28/24 16:15 DCW (Rec: 10/28/24 17:02 DCW [id number]) Out-Patient Physical Therapy Visit Information Visit Information Visit Type Treatment Note Visit Start Time 16:15 Visit Stop Time 17:00 Visit Number 8 Number of HUMAN RESOURCES ASSISTANT MANAGER Visits 0 Progress Note Due 11/20/24 Evaluation Information Evaluation Date 09/22/24 PT-OP-B Current Condition Start: 09/22/24 17:53 Freq: Status: Active Protocol: Document 09/22/24 14:30 DCW (Rec: 09/23/24 09:43 DCW [id number]) Current Condition History of Current Condition Onset Date Multi-year history Current Complaints Fatigue, weakness, limitations with mobility History of Current Pt is a 69 year old male presenting with a complex Condition medical history. Pt arrives in a wheelchair, his states that they have a walker for him, but he is only able to ambulate limited distances, and wouldn't be able to get back to the gym without the wheelchair. Pt reports he had previously tried PT in 2021 to build up strength and mobility, however his back was giving him a lot of issues, and ended up requiring an L4-5-S1 fusion. Pt reports after his surgery, he worked really hard to build himself back up, got to the point where he was walking with a FWW and trekking poles, but then in January 2024, he had fairly severe appendicitis, during which his appendix burst. Following this surgery , he went to rehab at [facility] he was once again very limited with mobility, and since that time, has largely been very sedentary, with nearly all mobility in his wheelchair. Notes he uses a FWW at home, but his max distance is across the living room. Pt now ready to work to return to using a FWW or trekking poles. He feels he has realistic expectations, and is very motivated to put in the work to improve his functional mobility and regain some independence. Treatment Goals Patient/Caregiver Return to walking with a FWW, or maybe even trekking Goals poles. PT-OP-C Subjective Start: 09/22/24 17:53 Freq: Status: Active Protocol: Document 10/28/24 16:15 DCW (Rec: 10/28/24 17:02 DCW [id number]) OP-PT Subjective Patient Comments Patient Comments Pt admits that he did a little too much last PT session, struggled to get up his stairs at home. PT-OP-D Balance Start: 09/22/24 17:53 Freq: Status: Active Protocol: Document 09/22/24 14:30 DCW (Rec: 09/22/24 17:58 DCW [id number]) Genao Balance Assessment Evaluation Sitting to Standing Independent w/Hands Ability Unsupported Stance Supervision- 2 minutes Sitting Unsupported, Safely- 2 minutes Feet on Floor Standing to Sitting Independent, Uncontrolled Ability Transfer Ability Assistance- 1 person Unsupported Stance- Supervision, 10 seconds Eyes Closed Unsupported Stance- Independent, <30 seconds Eyes Open Reaching Forward Safely, 5 inches Standing Pick- Up Object From Supervision Floor Look Behind Shoulder Supervision w/Turning - Standing Turning 360 Degrees Requires Assistance Unsupported Stance, Assist to Prevent Fall Alternating Feet on Stair Unsupported Tandem Assist to Step-15 seconds Stance Unilateral Leg Unable,assist to not fall Stance Total Score Genao Total Score ( 25 out of 56 points) Genao Impairment 40 to 59% Impaired (Score 23-33) Rating PT-OP-M Strength Start: 09/22/24 17:53 Freq: Status: Active Protocol: Document 09/22/24 14:30 DCW (Rec: 09/22/24 17:58 DCW [id number]) Hip Strength Hip Manual Muscle Testing Right Flexion (L2) 3+ Fair+ Extension (S1) 3+ Fair+ Abduction 4- Good- Adduction 4 Good External Rotation 4 Good Internal Rotation 4 Good Left Flexion (L2) 3 Fair Extension (S1) 3+ Fair+ Abduction 4- Good- Adduction 4- Good- External Rotation 4- Good- Internal Rotation 4- Good- Knee Strength Knee Manual Muscle Testing Right Flexion (S2) 4 Good Extension (L3) 4- Good- Left Flexion (S2) 4- Good- Extension (L3) 4- Good- Ankle/Foot Strength Ankle and Foot Manual Muscle Testing Right Dorsiflexion (L4) 4- Good- Left Dorsiflexion (L4) 3+ Fair+ PT-OP-Q Treatments Start: 09/22/24 17:53 Freq: Status: Active Protocol: Document 10/28/24 16:15 DCW (Rec: 10/28/24 17:02 DCW [id number]) Cardio Equipment Recumbent Elliptical (NuStep) Duration (Minutes) 5 Resistance 3 Seat Position Seat 13, Arms 8 Other VCs for pacing, energy conservation Gym Equipment Shuttle Recovery Unilateral Squats Resistance 25# (1 navy) Reps/Time x15 Bilateral squat Resistance 50# (1 navy) Reps/Time x20 Therapeutic Exercises Sitting Exercises Horizontal Abduction Sitting Exercise Shoulder HAbd Name Side bilateral Resistance Lv 2 Comments x15 Shoulder Abduction Sitting Exercise Abduction Name Side bilateral Resistance 3# Comments x15 Biceps Curls Sitting Exercise Curls/Reverse Curls Name Side bilateral Resistance 4# Comments x15 each Rows Sitting Exercise Rows Name Side bilateral Resistance Lv 3 Comments x15 Over head press Sitting Exercise Overhead press Name Side bilateral Resistance 4# /c wand Reps/Minutes x20 Comments VCs for positioning, energy conservation Gait Training Gait Activity FWW Description following NuStep warm-up Device Used FWW, trialed w/c by PT Aide Distance/Duration 25' Comments continuous cues for tall posture & knee straight each step, required standing rest break x2 PT-OP-T Assessment and Plan Start: 09/22/24 17:53 Freq: Status: Active Protocol: Document 10/28/24 16:15 DCW (Rec: 10/28/24 17:02 DCW [id number]) Physical Therapy Assessment Impairments Impairments Activity Tolerance,Balance,Functional Activities, Functional Mobility,Gait,Pain,Posture,ROM,Soft Tissue Mobility,Strength,Tone,Transfers,Vestibular Goals Three Impairment Pt unable to walk further than bed->chair at home due to fatigue/weakness Molder Meat Goal (LTG) Pt to demonstrate ability to ambulate 350' without a rest break using FWW in order to demonstrate improved activity tolerance. LTG Duration 12/21/24 Two Impairment Genao score of 25/56 suggests severe falls risk Molder Meat Goal (LTG) Pt to improve Genao Balance scale score by at least ten points to 35/56 in order to demonstrate a decrease in falls risk LTG Duration 12/21/24 One Impairment Pt does not have an appropriate home exercise program Short Term Goal (STG Pt to be independent and compliant with an appropriate ) HEP STG Duration 10/23/24 Assessment Summary Assessment Attempted to take it a little easier today due to pt response following last visit. Pt exited clinic today reporting he felt much better. Determine pt response upon arrival home next visit, and adjust plan accordingly. Physical Therapy Plan Frequency and Duration Frequency of 2x/Week Treatment Plan of Care Start 09/22/24 Date Plan of Care End 12/21/24 Date Therapeutic Interventions Therapeutic Balance Training,Coordination Training,Gait Training, Interventions Home Exercise Program,Joint Mobilizations,Manual Therapy,Neuromuscular Re-education,Orthotic/Prosthetic Management,Patient/Caregiver Education,Self-Care/Home Management,Soft Tissue Mobilization,Therapeutic Activities,Therapeutic Exercises,Wheelchair Management Next Visit Focus/Plan Next Note Type Treatment Note Next Visit Plan *check endurance daily and monitor activities due to need energy to walk up stairs home after appt, has been stated unable get ramp. Next appt: check if has any issues getting up stairs after last appt due to bad day and did some standing activities. Recheck HEP, work on strengthening, activity tolerance, balance and gait. (Pt personal goal walk further with FWW and eventually use of trek poles.)
--- NOTE | 2024-11-02 17:02 | PT.OTN ---
Current Diagnoses Labyrinthine dysfunction, right ear (11/02/24) Muscle weakness (generalized) (11/02/24) Unsteadiness on feet (11/02/24) Other abnormalities of gait and mobility (11/02/24) Physical Therapy Treatment Note PT-OP-A Visit Information Start: 09/22/24 17:53 Freq: Status: Active Protocol: Document 11/02/24 16:15 DCW (Rec: 11/02/24 17:02 DCW [id number]) Out-Patient Physical Therapy Visit Information Visit Information Visit Type Treatment Note Visit Start Time 16:15 Visit Stop Time 17:00 Visit Number 8 Number of DEVELOPMENT ENGINEER Visits 0 Progress Note Due 11/20/24 Evaluation Information Evaluation Date 09/22/24 PT-OP-B Current Condition Start: 09/22/24 17:53 Freq: Status: Active Protocol: Document 09/22/24 14:30 DCW (Rec: 09/23/24 09:43 DCW [id number]) Current Condition History of Current Condition Onset Date Multi-year history Current Complaints Fatigue, weakness, limitations with mobility History of Current Pt is a 69 year old male presenting with a complex Condition medical history. Pt arrives in a wheelchair, his states that they have a walker for him, but he is only able to ambulate limited distances, and wouldn't be able to get back to the gym without the wheelchair. Pt reports he had previously tried PT in 2021 to build up strength and mobility, however his back was giving him a lot of issues, and ended up requiring an L4-5-S1 fusion. Pt reports after his surgery, he worked really hard to build himself back up, got to the point where he was walking with a FWW and trekking poles, but then in January 2024, he had fairly severe appendicitis, during which his appendix burst. Following this surgery , he went to rehab at [facility] he was once again very limited with mobility, and since that time, has largely been very sedentary, with nearly all mobility in his wheelchair. Notes he uses a FWW at home, but his max distance is across the living room. Pt now ready to work to return to using a FWW or trekking poles. He feels he has realistic expectations, and is very motivated to put in the work to improve his functional mobility and regain some independence. Treatment Goals Patient/Caregiver Return to walking with a FWW, or maybe even trekking Goals poles. PT-OP-C Subjective Start: 09/22/24 17:53 Freq: Status: Active Protocol: Document 11/02/24 16:15 DCW (Rec: 11/02/24 17:02 DCW [id number]) OP-PT Subjective Patient Comments Patient Comments We got it just right, notes he wasn't too fatigued following last visit. PT-OP-D Balance Start: 09/22/24 17:53 Freq: Status: Active Protocol: Document 09/22/24 14:30 DCW (Rec: 09/22/24 17:58 DCW [id number]) Genao Balance Assessment Evaluation Sitting to Standing Independent w/Hands Ability Unsupported Stance Supervision- 2 minutes Sitting Unsupported, Safely- 2 minutes Feet on Floor Standing to Sitting Independent, Uncontrolled Ability Transfer Ability Assistance- 1 person Unsupported Stance- Supervision, 10 seconds Eyes Closed Unsupported Stance- Independent, <30 seconds Eyes Open Reaching Forward Safely, 5 inches Standing Pick- Up Object From Supervision Floor Look Behind Shoulder Supervision w/Turning - Standing Turning 360 Degrees Requires Assistance Unsupported Stance, Assist to Prevent Fall Alternating Feet on Stair Unsupported Tandem Assist to Step-15 seconds Stance Unilateral Leg Unable,assist to not fall Stance Total Score Genao Total Score ( 25 out of 56 points) Genao Impairment 40 to 59% Impaired (Score 23-33) Rating PT-OP-M Strength Start: 09/22/24 17:53 Freq: Status: Active Protocol: Document 09/22/24 14:30 DCW (Rec: 09/22/24 17:58 DCW [id number]) Hip Strength Hip Manual Muscle Testing Right Flexion (L2) 3+ Fair+ Extension (S1) 3+ Fair+ Abduction 4- Good- Adduction 4 Good External Rotation 4 Good Internal Rotation 4 Good Left Flexion (L2) 3 Fair Extension (S1) 3+ Fair+ Abduction 4- Good- Adduction 4- Good- External Rotation 4- Good- Internal Rotation 4- Good- Knee Strength Knee Manual Muscle Testing Right Flexion (S2) 4 Good Extension (L3) 4- Good- Left Flexion (S2) 4- Good- Extension (L3) 4- Good- Ankle/Foot Strength Ankle and Foot Manual Muscle Testing Right Dorsiflexion (L4) 4- Good- Left Dorsiflexion (L4) 3+ Fair+ PT-OP-Q Treatments Start: 09/22/24 17:53 Freq: Status: Active Protocol: Document 11/02/24 16:15 DCW (Rec: 11/02/24 17:02 DCW [id number]) Cardio Equipment Recumbent Elliptical (NuStep) Duration (Minutes) 5 Resistance 3 Seat Position Seat 13, Arms 8 Other VCs for pacing, energy conservation Gym Equipment Shuttle Recovery Unilateral Squats Resistance 25# (1 navy) Reps/Time x15 Bilateral squat Resistance 50# (2 navy) Reps/Time x20 Therapeutic Exercises Sitting Exercises Shoulder Abduction Sitting Exercise Abduction Name Side bilateral Resistance 3# Comments x15 Biceps Curls Sitting Exercise Curls/Reverse Curls Name Side bilateral Resistance 5# Comments x15 each PNF Sitting Exercise UE PNF D1/D2 Name Side bilateral Resistance 2# Over head press Sitting Exercise Overhead press Name Side bilateral Resistance 5# /c wand Reps/Minutes x15 Comments VCs for positioning, energy conservation Gait Training Gait Activity FWW Description following NuStep warm-up Device Used FWW, trialed w/c by PT Aide Distance/Duration 35' Comments continuous cues for tall posture & knee straight each step, no standing rest breaks PT-OP-T Assessment and Plan Start: 09/22/24 17:53 Freq: Status: Active Protocol: Document 11/02/24 16:15 DCW (Rec: 11/02/24 17:02 DCW [id number]) Physical Therapy Assessment Impairments Impairments Activity Tolerance,Balance,Functional Activities, Functional Mobility,Gait,Pain,Posture,ROM,Soft Tissue Mobility,Strength,Tone,Transfers,Vestibular Goals Three Impairment Pt unable to walk further than bed->chair at home due to fatigue/weakness Custodial Goal (LTG) Pt to demonstrate ability to ambulate 350' without a rest break using FWW in order to demonstrate improved activity tolerance. LTG Duration 12/21/24 Two Impairment Genao score of 25/56 suggests severe falls risk Custodial Goal (LTG) Pt to improve Genao Balance scale score by at least ten points to 35/56 in order to demonstrate a decrease in falls risk LTG Duration 12/21/24 One Impairment Pt does not have an appropriate home exercise program Short Term Goal (STG Pt to be independent and compliant with an appropriate ) HEP STG Duration 10/23/24 Assessment Summary Assessment Pt appears to be improving with activity tolerance, able to do slightly more activity with increased resistance and fewer rest breaks. Still cautious to ensure pt able to get back into his home after session. Physical Therapy Plan Frequency and Duration Frequency of 2x/Week Treatment Plan of Care Start 09/22/24 Date Plan of Care End 12/21/24 Date Therapeutic Interventions Therapeutic Balance Training,Coordination Training,Gait Training, Interventions Home Exercise Program,Joint Mobilizations,Manual Therapy,Neuromuscular Re-education,Orthotic/Prosthetic Management,Patient/Caregiver Education,Self-Care/Home Management,Soft Tissue Mobilization,Therapeutic Activities,Therapeutic Exercises,Wheelchair Management Next Visit Focus/Plan Next Note Type Treatment Note Next Visit Plan *check endurance daily and monitor activities due to need energy to walk up stairs home after appt, has been stated unable get ramp. Next appt: check if has any issues getting up stairs after last appt due to bad day and did some standing activities. Recheck HEP, work on strengthening, activity tolerance, balance and gait. (Pt personal goal walk further with FWW and eventually use of trek poles.)
--- NOTE | 2024-11-04 18:02 | PT.OTN ---
Current Diagnoses Labyrinthine dysfunction, right ear (11/04/24) Muscle weakness (generalized) (11/04/24) Unsteadiness on feet (11/04/24) Other abnormalities of gait and mobility (11/04/24) Physical Therapy Treatment Note PT OP: Full Body Start: 11/04/24 16:16 Freq: Status: Active Protocol: Document 11/04/24 16:17 AB (Rec: 11/04/24 17:19 AB [id number]) Out-Patient Physical Therapy Visit Information Visit Information Visit Type Treatment Note Visit Start Time 16:18 Visit Stop Time 17:02 Visit Number 9 Number of BLENDING KETTLE TENDER Visits 1 Progress Note Due 11/20/24 OP-PT Subjective Patient Comments Patient Comments Patient reports he was OK post last session. Patient reports he woke up with legs feeling more weak today, with no know cause. Patient reports he has not experienced walking up with legs weaker as he is today. Patient rates pain 6/10 lower spine. Pt reports he fell right before stairs walking, then and son helped hip down stairs one in front one and back. Quads and HS greater than 3+, PT Randell Babb into session, OK to continue PT, Patient advised to touch base with MD if this continues. Therapeutic Exercises Sitting Exercises rhythmic stabilization Sitting Exercise Seated Name Reps/Minutes all directions X 1 min X 2 then in for instructions with X 1 each * Comments direct to trunk then with dowel seated core without back rest support Sitting Exercise HEP Name Reps/Minutes 3-4 min Comments VC to scoot fwd in chair and sit without resting on back rest WC push up Reps/Minutes X 5 Comments VC inc muscle shaking noted Rows Sitting Exercise Rows Name Side bilateral Resistance Lv 3 Comments x15 HS curl Sitting Exercise In PT for hamstring strengthening, also VC to move UE's Name further back when * Side bilateral Reps/Minutes self-propel w/c Comments * propelling with UE's STS Sitting Exercise reviewed for strengthening Name Resistance CGA Reps/Minutes X 2 and X 3 Comments X 2 in // bars X 3 without bars unable to stand fully upright *holds armres LAQ Sitting Exercise LAQ Name Side bilateral Resistance 2# Reps/Minutes X10 Comments VC to lower slowly Clamshell Sitting Exercise HEP Name Side bilateral Resistance TB #3 teal Reps/Minutes one minute then X 15 without hold Physical Therapy Assessment Goals Three Impairment Pt unable to walk further than bed->chair at home due to fatigue/weakness Anesthesiologist Physician Goal (LTG) Pt to demonstrate ability to ambulate 350' without a rest break using FWW in order to demonstrate improved activity tolerance. LTG Duration 12/21/24 Two Impairment Genao score of 25/56 suggests severe falls risk Alf Goal (LTG) Pt to improve Genao Balance scale score by at least ten points to 35/56 in order to demonstrate a decrease in falls risk LTG Duration 12/21/24 One Impairment Pt does not have an appropriate home exercise program Short Term Goal (STG Pt to be independent and compliant with an appropriate ) HEP STG Duration 10/23/24 Assessment Summary Assessment Patient unable to stand fully upright without use of parallel bars this session. Patient into session with reports of increased LE weakness. Good debbie to Rhythmic stabilization and seated position holding posture without back rest to increase core strength. Physical Therapy Plan Frequency and Duration Frequency of 2x/Week Treatment Plan of Care Start 09/22/24 Date Plan of Care End 12/21/24 Date Next Visit Focus/Plan Next Note Type Treatment Note Next Visit Plan *check endurance daily and monitor activities due to need energy to walk up stairs home after appt, has been stated unable get ramp. Next appt: check if has any issues getting up stairs after last appt due to bad day and did some standing activities. Recheck HEP, work on strengthening, activity tolerance, balance and gait. (Pt personal goal walk further with FWW and eventually use of trek poles.)
--- NOTE | 2024-11-09 18:01 | PT.OTN ---
Current Diagnoses Labyrinthine dysfunction, right ear (11/09/24) Muscle weakness (generalized) (11/09/24) Unsteadiness on feet (11/09/24) Other abnormalities of gait and mobility (11/09/24) Physical Therapy Treatment Note PT OP: Full Body Start: 11/04/24 16:16 Freq: Status: Active Protocol: Document 11/09/24 16:18 AB (Rec: 11/09/24 17:10 AB [id number]) Out-Patient Physical Therapy Visit Information Visit Information Visit Type Treatment Note Visit Note * (Sharon) assisting with pushing wheelchair during test. Visit Start Time 16:18 Visit Stop Time 16:55 Visit Number 10 Number of LABORER CAR BARN Visits 2 Progress Note Due 11/20/24 OP-PT Subjective Patient Comments Patient Comments Patient reports he fell getting into the car today, reports L LE gave out. Patient reports he is having a bad day 10/10 back pain. PT, Randell Manleyaver into session due to report of fall. reports patient landed in car seat. Patient reports he cannot make it across the living room walking. Patient advised to make MD aware that he is not improving and function is decreasing. Therapeutic Exercises Sitting Exercises AROM DF Reps/Minutes X 15 without band X 15 with level one band each LE Comments verbal cues rhythmic stabilization Sitting Exercise Seated Name Reps/Minutes all directions X 1 min X 2 then in for instructions with X 1 each * Comments direct to trunk then with dowel WC push up Reps/Minutes X 5 Comments VC inc muscle shaking noted Horizontal Abduction Sitting Exercise cheerleaders Name Side bilateral Resistance Lv 2 Reps/Minutes X 7 Comments verbal and visual cues Standing Exercises sit to stand Standing Exercise from chair to standing with FWW Name Reps/Minutes X 5 Comments PT ed [facility] sit to stand, hip hinge and to avoid pausing post hip hinge Gait Training Gait Activity FWW Description follows with WC Distance/Duration 5 ft and 11 feet with FWW Comments noted increased ms shaking L quad, posture deteriorates rapidly and increased difficulty with LE clearance ie scuffing L> R FWW adjusted for height Physical Therapy Assessment Goals Three Impairment Pt unable to walk further than bed->chair at home due to fatigue/weakness Group Home Goal (LTG) Pt to demonstrate ability to ambulate 350' without a rest break using FWW in order to demonstrate improved activity tolerance. LTG Duration 12/21/24 Two Impairment Gneao score of 25/56 suggests severe falls risk Oil Well Service Unit Operator Goal (LTG) Pt to improve Genao Balance scale score by at least ten points to 35/56 in order to demonstrate a decrease in falls risk LTG Duration 12/21/24 One Impairment Pt does not have an appropriate home exercise program Short Term Goal (STG Pt to be independent and compliant with an appropriate ) HEP STG Duration 10/23/24 Assessment Summary Assessment Patient able to ambulate 5 feet first trial, 11 feet second trial CGA with FWW, following with WC, Quad shaking, increased trunk flexion, ability to hold posture and feet scuffing L> R during trials. Physical Therapy Plan Frequency and Duration Frequency of 2x/Week Treatment Plan of Care Start 09/22/24 Date Plan of Care End 12/21/24 Date Next Visit Focus/Plan Next Note Type Treatment Note Next Visit Plan *check endurance daily and monitor activities due to need energy to walk up stairs home after appt, has been stated unable get ramp. Next appt: check if has any issues getting up stairs after last appt due to bad day and did some standing activities. Recheck HEP, work on strengthening, activity tolerance, balance and gait. (Pt personal goal walk further with FWW and eventually use of trek poles.)
--- NOTE | 2024-11-09 18:02 | PT.OPPN ---
Current Diagnoses Labyrinthine dysfunction, right ear (11/09/24) Muscle weakness (generalized) (11/09/24) Unsteadiness on feet (11/09/24) Other abnormalities of gait and mobility (11/09/24) Physical Therapy Progress Note PT OP: Full Body Start: 11/04/24 16:16 Freq: Status: Active Protocol: Document 11/09/24 18:02 DCW (Rec: 11/10/24 09:43 DCW [id number]) Out-Patient Physical Therapy Visit Information Visit Information Visit Type Progress Note Physical Therapy Assessment Impairments Impairments Activity Tolerance,Balance,Functional Activities, Functional Mobility,Gait,Pain,Posture,ROM,Soft Tissue Mobility,Strength,Tone,Transfers,Vestibular Goals Three Impairment Pt unable to walk further than bed->chair at home due to fatigue/weakness Critical Care Technician Goal (LTG) Pt to demonstrate ability to ambulate 350' without a rest break using FWW in order to demonstrate improved activity tolerance. LTG Duration 12/21/24 Two Impairment Genao score of 25/56 suggests severe falls risk Fpc Goal (LTG) Pt to improve Genao Balance scale score by at least ten points to 35/56 in order to demonstrate a decrease in falls risk LTG Duration 12/21/24 One Impairment Pt does not have an appropriate home exercise program Short Term Goal (STG Pt to be independent and compliant with an appropriate ) HEP STG Duration 10/23/24 Progress Towards Goals Progress Towards Slow Progress due to Medical Issues Goals Assessment Summary Assessment Pt appears to be going through decline in function. Activity tolerance, gait, strength all declining. Pt has been experiencing falls or his legs giving out more often. Strongly recommended pt to return to PCP with this change in function. Physical Therapy Plan Frequency and Duration Frequency of 2x/Week Treatment Plan of Care Start 09/22/24 Date Plan of Care End 12/21/24 Date
--- NOTE | 2025-01-19 15:50 | PT.OPDS ---
Current Diagnoses Labyrinthine dysfunction, right ear (11/09/24) Muscle weakness (generalized) (11/09/24) Unsteadiness on feet (11/09/24) Other abnormalities of gait and mobility (11/09/24) Visit Care Team Role Provider Type Kesha Mcdonald DO Attending Provider Physician Family Provider Primary Care Provider Referring Provider Specialty: [facility] Practice Address: [address] [place] [address], [address], [facility] Email: [email or web address] Visit Number Visit Number 10 Discharge Summary PT OP: Full Body Start: 11/04/24 16:16 Freq: Status: Active Protocol: Document 01/19/25 15:48 DCW (Rec: 01/19/25 15:50 DCW [id number]) Out-Patient Physical Therapy Visit Information Visit Information Visit Type Discharge Summary Physical Therapy Assessment Assessment Summary Assessment Pt did not show to last scheduled visit, has now not been seen in more than two months, plan of care has since . Pt to be discharged at this time, will require a new referral in order to return in the future . Physical Therapy Plan Discharge Physical Therapy Discharge Reasons No Longer Attending PT
== END 2025-01-20 09:44 | disposition home or self-care (01) ==
LOC: PHYS 16:15
PROVIDERS: Family Provider Family Medicine; PCP Family Medicine; Referring Provider Family Medicine; Visit Provider Family Medicine
DX: H83.2X1 Labyrinthine dysfunction, right ear (principal); R26.81 Unsteadiness on feet; M62.81 Muscle weakness (generalized); R26.89 Other abnormalities of gait and mobility
CPT/HCPCS: 97110; 97112; 97116; 97163; 97535

== ENCOUNTER → 2024-11-11 11:12 | Outpatient (CLI) | payer MEDICARE, MEDICAID, SELFPAY ==
[2023-12-12 02:13] VITALS: BMI 29.9
[2024-11-11 14:41] LABS: Hemoglobin A1C% w Est Avg Glu 5.7 % (4.0-6.0)
== END ==
PROVIDERS: Family Provider Family Medicine; PCP Family Medicine; Referring Provider Family Medicine; Visit Provider Family Medicine
DX: R73.09 Other abnormal glucose (principal); Z12.5 Encounter for screening for malignant neoplasm of prostate; Z74.09 Other reduced mobility; I10 Essential (primary) hypertension; E29.1 Testicular hypofunction; R35.0 Frequency of micturition; R33.9 Retention of urine, unspecified
CPT/HCPCS: 36415; 83036; G0103

== ENCOUNTER 2024-11-25 09:28 | Emergency (ER) | payer MEDICARE, MEDICAID, SELFPAY ==
[2023-12-12 02:13] VITALS: BMI 29.9
[2024-11-25] VITALS (17 sets, daily range): BP systolic 140–189; BP diastolic 74–102; PULSE 67–89; RESP 14–23; TEMP 36.8; O2SAT 91–95; BMI 28.7
--- NOTE | 2024-11-25 09:33 | ED.FALL ---
HPI - Fall General Chief Complaint: Fall Stated Complaint: GLF hit head Time Seen by Provider: 11/25/24 09:29 History of Present Illness HPI Narrative: Modified trauma activated Primary survey A -airway intact B -equal breath sounds C -strong heart sounds D -no gross deformity E -patient in gown Patient brought in by ambulance. Patient is on Eliquis but does not know why. Patient has history of chronic back pain and becoming worse and family desires home health or assisted due to can not care for him anymore. Patient has had a couple falls in the past few days. Today he did fall hit his head with no loss of consciousness. Denies any new pains. Has chronic back pain. No nausea or vomiting no vision changes no altered mental status. No bruising seen on the back or chest or abdomen. Limbs nontender no midline tenderness or step-off of cervicothoracic and lumbar spine. Denies any recent illness. No cough cold congestion fever chills no black or bloody stools. Denies any ongoing chest pain shortness of breath black or bloody stools. No altered mental status no confusion. Related Data Home Medications ?Medication ?Instructions ?Recorded ?Confirmed losartan 25 mg tablet 12.5 mg PO DAILY 11/11/24 11/11/24 metoprolol succinate 50 mg 50 mg PO ONCE PM 11/11/24 11/11/24 tablet,extended release 24 hr Previous Rx's ?Medication ?Instructions ?Recorded Syringes #1 ea 07/06/18 MAX NEEDLES #50 ea 09/26/21 acetaminophen 325 mg tablet 650 mg (2 x 325 mg) PO Q6HR #60 02/02/22 tabs apixaban 5 mg tablet 5 mg PO BID #60 tabs 03/18/24 pregabalin 75 mg capsule (Lyrica) 75 mg PO BID #60 caps 07/28/24 gabapentin 300 mg capsule 300 mg PO BEDTIME #30 caps 10/15/24 trazodone 100 mg tablet 100 mg PO BEDTIME #90 tabs 10/29/24 citalopram 20 mg tablet 20 mg PO DAILY #90 tabs 11/11/24 duloxetine 60 mg capsule,delayed 60 mg PO DAILY #90 caps 11/11/24 release tramadol 50 mg tablet 50 mg PO BID PRN pain #60 tabs 11/18/24 Allergies Allergy/AdvReac Type Severity Reaction Status Date / Time No Known Drug Allergies Allergy Verified 11/11/24 07:22 Review of Systems Review of Systems Narrative: GENERAL: Negative chills, fatigue, malaise, fever, sweats. HEENT: Negative sinus pain, ear pain, sore throat RESPIRATORY: Negative dyspnea, cough CARDIOVASCULAR: Negative chest pain, palpitations GASTROINTESTINAL: Negative vomiting, nausea, abdominal pain : Negative dysuria, frequency, hematuria MUSCULOSKELETAL: Positive muscle or bony pain SKIN: Negative rash, skin lesions NEUROLOGIC: Negative weakness, numbness ROS Unobtainable: All systems reviewed & are unremarkable except as noted in HPI and below Patient History Medical History (Updated 11/25/24 @ 16:38 by Cipriano Husain MD) Tachycardia Acute appendicitis Influenza A Anesthesia Gait instability 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 Nontender scalp no crepitus or step-off no skull tenderness EYES: Pupils equal round ENT: Mucous membranes moist. NECK: Trachea midline. No midline tenderness or step-off cervical thoracic or lumbar spine. No skin injury bruising seen CARDIOVASCULAR: Regular rate and rhythm RESPIRATORY: Clear to auscultation. Breath sounds equal bilaterally. No wheezes, rales, or rhonchi. GASTROINTESTINAL: Abdomen soft, non-tender EXTREMITIES: No gross deformities. Nontender bilateral shoulders elbows wrists pelvis hips knees and ankles BACK: No flank tenderness. NEURO: AOx4. Clear speech SKIN: Warm and dry PSYCH: Not anxious, is cooperative Initial Vital Signs Initial Vital Signs: Vital Signs Temperature 98.2 F 11/25/24 09:34 Pulse Rate 82 11/25/24 09:34 Respiratory Rate 17 11/25/24 09:34 Blood Pressure 174/86 H 11/25/24 09:34 Pulse Oximetry 91 11/25/24 09:34 Oxygen Delivery Method Room Air 11/25/24 09:34 Course Orders Ordered: Discontinued Medications Sodium Chloride (Normal Saline 0.9%) 500 mls @ 1,000 mls/hr IV BOLUS ONE Stop: 11/25/24 10:03 Last Infusion: 11/25/24 11:19 Dose: Infused Documented By: Admin: 11/25/24 10:12 Dose: 1,000 mls/hr Documented By: VU Vital Signs Vital signs: Vital Signs - 8 hr 11/25/24 09:34 11/25/24 10:32 11/25/24 10:33 Temperature 98.2 F Pulse Rate 82 71 69 Respiratory Rate 17 16 15 Blood Pressure 174/86 H 140/88 Pulse Oximetry 91 94 94 Oxygen Delivery Method Room Air Room Air 11/25/24 11:00 11/25/24 11:30 11/25/24 12:00 Temperature Pulse Rate 68 67 67 Respiratory Rate 14 18 22 Blood Pressure Pulse Oximetry 94 94 95 Oxygen Delivery Method 11/25/24 12:30 11/25/24 13:00 11/25/24 13:30 Temperature Pulse Rate 68 70 81 Respiratory Rate 15 15 20 Blood Pressure Pulse Oximetry 94 95 91 Oxygen Delivery Method 11/25/24 14:00 Temperature Pulse Rate 73 Respiratory Rate 16 Blood Pressure 168/93 H Pulse Oximetry 94 Oxygen Delivery Method MDM - Fall Lab Data 11/25/24 09:42 11/25/24 09:42 Labs: Lab Results 11/25/24 11/25/24 Range/Units 09:42 09:50 WBC 7.2 (4.5-11.0) X10^3/uL RBC 5.53 (4.5-5.9) X10^6/uL Hgb 15.8 (13.5-17.5) g/dL Hct 47.7 (41-53) % MCV 86.3 (80-100) fL MCH 28.6 (26-34) PG MCHC 33.1 (30-36) % RDW 13.6 (11.6-14.8) % Plt Count 264 (150-400) X10^3/uL Neut % (Auto) 73.6 (50-75) % Lymph % (Auto) 18.6 L (25-40) % Howell % (Auto) 6.7 (3-14) % Eos % (Auto) 0.6 L (2-4) % Baso % (Auto) 0.5 (0-2) % Neut # (Auto) 5300 (8212-2024) /uL Lymph # (Auto) 1300 (0882-4922) /uL Howell # (Auto) 500 (0-900) /uL Eos # (Auto) 0 (0-450) /uL Baso # (Auto) 0 (0-100) /uL PT 12.6 H (9.4-12.5) SECONDS INR 1.1 (0.9-1.3) APTT 36 (25.1-36.5) SECONDS Sodium 139 (137-145) mmol/L Potassium 4.1 (3.4-5.1) mmol/L Chloride 101 (98-107) mmol/L Carbon Dioxide 27 (22-32) mmol/L BUN 20 (9-20) mg/dL Creatinine 0.76 (0.66-1.25) mg/dL Estimated GFR > 60 (>60) mL/min BUN/Creatinine Ratio 26.3 H (6-22) Glucose 100 H (70-99) mg/dL Calcium 9.2 (8.4-10.2) mg/dL Total Bilirubin 0.5 (0.2-1.3) mg/dL AST 26 (17-59) IU/L ALT 20 (<50) IU/L Alkaline Phosphatase 63 (38-126) U/L Total Protein 7.9 (6.3-8.2) g/dL Albumin 4.7 (3.5-5.0) g/dL Globulin 3.2 (1.7-4.1) g/dL Albumin/Globulin Ratio 1.5 (1.0-2.8) Urine RBC 0-1/hpf (0-5/HPF) Urine WBC 0-1/hpf (0-5/HPF) Ur Squamous Epith Cells 0-1 /hpf (0-5/HPF) Urine Bacteria None seen (None) Ur Culture Indicated? Cult not indicated Vol Urine Centrifuged 10ml (spun) Urine Dip Bedside Urine Glucose Negative Bedside Urine Bilirubin - Negative Bedside Urine Ketone - Negative Urine Specific [place] 1.010 Bedside Urine Occult Blood + Bedside Urine pH 6.0 Bedside Urine Protein - Negative Bedside Urine Urobilinogen - Negative Bedside Urine Nitrite - Negative Bedside Urine Leukocytes - Negative Esterase Imaging Data CT scan - head: Radiologist's Impression: [address] [address] [address] Scan Report Signed Patient: Jamal Orr MR#: [id number] : 1955 Acct:[id number] Age/Sex: 69 / M Date of Service: 11/25/24 Loc: ED Accession Number: [id number] Procedure: CT head/brain wo con Ordering Provider: Cipriano Husain MD PROCEDURE: CT HEAD/BRAIN WO CON INDICATIONS: Trauma TECHNIQUE: Noncontrast 4.5 mm thick angled axial sections acquired from the foramen magnum to the vertex, with coronal and sagittal reformats. For radiation dose reduction, the following was used: automated exposure control, adjustment of mA and/or kV according to patient size. COMPARISON: [facility], CT, CT HEAD/BRAIN WO CON, 02/15/2024, 12:31. FINDINGS: Image quality: Diagnostic. CSF spaces: Basal cisterns are patent. No extra-axial fluid collections. Stable ventriculomegaly. Brain: No intracranial bleeds or mass effect. There is cerebral volume loss, with resultant ventricular and sulcal prominence. There are periventricular and deep white matter chronic small vessel ischemic changes. There is intracranial internal carotid artery atherosclerosis. Skull and face: Calvarium and visualized facial bones appear intact, without suspicious lesions. Sinuses: Visualized sinuses and mastoids are clear. IMPRESSION: No acute intracranial pathology. Stable chronic findings. Dictated by: Poncho Guardado M.D. on 11/25/2024 at 10:52 Approved by: Poncho Guardado M.D. on 11/25/2024 at 10:54 CT - cervical spine: Radiologist's Impression: [address] [address] [address] Scan Report Signed Patient: Jamal Orr MR#: [id number] : 1955 Acct:[id number] Age/Sex: 69 / M Date of Service: 11/25/24 Loc: ED Accession Number: [id number] Procedure: CT cervical spine wo con Ordering Provider: Cipriano Husain MD PROCEDURE: CT CERVICAL SPINE WO CON INDICATIONS: Trauma TECHNIQUE: Noncontrast 3 mm thick sections acquired from the skull base to the T4 level. Sagittal and coronal reformats were then constructed. For radiation dose reduction, the following was used: automated exposure control, adjustment of mA and/or kV according to patient size. COMPARISON: [facility], CT, CT CERVICAL SPINE WO CON, 02/15/2024, 12:31. FINDINGS: Image quality: Excellent. Bones: No fractures or dislocations. Degenerative changes of the cervical spine. Visualized superior ribs are intact. Soft tissues: Prevertebral soft tissues are normal in thickness. No paravertebral hematomas. No apical pneumothoraces. IMPRESSION: No displaced fracture or traumatic subluxation. Dictated by: Poncho Guardado M.D. on 11/25/2024 at 10:54 Approved by: Poncho Guardado M.D. on 11/25/2024 at 10:57 CT chest abdomen pelvis: Radiologist's Impression: [place] [address] CT Scan Report Signed Patient: Jamal Orr MR#: [id number] : 1955 Acct:[id number] Age/Sex: 69 / M Date of Service: 11/25/24 Loc: ED Accession Number: [id number] Procedure: CT chest abd pel w con Ordering Provider: Cipriano Husain MD PROCEDURE: CT CHEST ABD PEL W CON INDICATIONS: FALL TECHNIQUE: After the administration of intravenous contrast, 5 mm thick sections acquired from the lung apices to the symphysis. 2.5 mm thick coronal and sagittal reformats were acquired. Additional 7 mm thick coronal maximum intensity projection (MIP) reformats acquired through the lungs. For radiation dose reduction, the following was used: automated exposure control, adjustment of mA and/or kV according to patient size. COMPARISON: [facility], CT, CT HEAD/BRAIN WO CON, 11/25/2024, 9:53. [facility], CT, CT CERVICAL SPINE WO CON, 11/25/2024, 9:53. [facility], CT, CT ABDOMEN PELVIS W CON, 12/30/2023, 8:13. [facility], CT, CT ANGIO CHEST PE PROTOCOL, 12/30/2023, 8:13. FINDINGS: Image quality: There is artifact associated with the metallic hardware. Artifact from the metallic hardware is reduced by metal reconstruction algorithm. CHEST: Lower Neck: No enlarged lymph nodes. Thyroid: No thyroid nodules which require sonographic evaluation. Axillae: No enlarged lymph nodes. Chest Wall: No subcutaneous gas. Lungs and Pleura: No pulmonary contusions or lacerations. Mild dependent atelectasis can be seen. No acute airspace opacities. No pneumothorax or hemothorax. Mediastinum: No mediastinal hematomas. Mild coronary calcification is seen. Heart size is normal. No pericardial effusion. Thoracic aorta and pulmonary arteries demonstrate normal size and enhancement. No mediastinal or hilar adenopathy. Esophagus is normal in caliber. No hiatal hernia. ABDOMEN: Liver: No lacerations. Gallbladder: A gallstone is seen within the gallbladder. No additional CT findings of cholecystitis are seen. Biliary ducts: No biliary dilation. Pancreas: Homogenous enhancement. Spleen: Homogenous enhancement without laceration or hematoma. Adrenal Glands: Symmetric enhancement. Kidneys and Ureters: Symmetric enhancement. No hydronephrosis. No solid mass. No complex renal cystic lesion which requires follow up. Stomach and Bowel: Normal colonic caliber, without significant wall thickening. No dilated loops of small bowel are seen. Right lower quadrant postoperative change is seen. Peritoneum: No abnormal intraperitoneal fluid. No free air. Ventral Wall: No hernia. Abdominal Nodes: No retroperitoneal or mesenteric adenopathy by size criteria. Vessels: Aorta and inferior vena cava are normal in size. PELVIS: Pelvic Organs: Unremarkable. Bladder: Normal thickness. Pelvic Nodes: No enlarged lymph nodes. Miscellaneous: No inguinal hernias are seen. Bones: Pelvic ring and hip joints appear intact. No displaced rib fractures. Lumbosacral postoperative and degenerative change can be seen. IMPRESSION: No evidence of traumatic injury to the chest, abdomen or pelvis. Additional findings: Mild coronary artery calcification Gallstone Right lower quadrant postoperative change Lumbosacral postoperative and degenerative change Dictated by: Ronald Gaming M.D. on 11/25/2024 at 10:01 Approved by: Ronald Gaming M.D. on 11/25/2024 at 10:05 [facility] Narrative Medical decision making narrative: a couple falls in the past few days. Today he did fall hit his head with no loss of consciousness. Denies any new pains. Has chronic back pain. No nausea or vomiting no vision changes no altered mental status. No bruising seen on the back or chest or abdomen. Limbs nontender no midline tenderness or step-off of cervicothoracic and lumbar spine. Denies any recent illness. No cough cold congestion fever chills no black or bloody stools. Denies any ongoing chest pain shortness of breath black or bloody stools. No altered mental status no confusion. MDM After history and exam, CT head CT cervical spine CT chest abdomen pelvis PT INR PTT CBC CMP urinalysis EKG social work consult Differential considered: Includes but not limited to failure to thrive chronic pain scalp contusion intracranial bleed cervical strain chronic back pain Medical records reviewed: No recent visit for this complaint Lab Test results independently reviewed as above. Pertinent findings: WBC 7.2 hemoglobin 15.8 hematocrit 47 platelets 264 INR 1.1 sodium 139 potassium 4.1 BUN 20 creatinine 0.76 glucose 100 Independently reviewed EKG normal sinus rhythm rate [address] elevation or depression Imaging studies independently reviewed: CT head cervical spine chest abdomen pelvis no acute finding Consultations: 12:34 p.m. Demla, social work at bedside 4:34 p.m.. Patient and desire discharge home. They have met with social work in physical therapy and home health services will be provided/set up for them with [facility]. Patient has appointment with [facility] spine surgery next December 02 at 8:00 a.m.. They will utilize safe assist with EMS Re-evaluations: 11:15 a.m.. Updated patient and family results. at bedside. Awaiting social work consult. Discussion: Appropriate for discharge home. Exam is reassuring. Results are reassuring. Patient was seen by physical therapy and foster care social worker for treatment and plan. Diagnosis: Chronic back pain, scalp contusion Discharge Plan Departure Patient Disposition: Home Clinical Impression: Contusion of head Qualifiers: Encounter type: initial encounter Contusion of head detail: unspecified part of head Qualified Code(s): S00.93XA - Contusion of unspecified part of head, initial encounter Chronic back pain Qualifiers: Back pain location: low back pain Back pain laterality: unspecified Sciatica presence: unspecified whether sciatica present Qualified Code(s): M54.50 - Low back pain, unspecified Instructions: Managing Chronic Low Back Pain, DI for Closed Head Injury Activity Restrictions/Additional Instructions: Please see spine surgery services next week as scheduled. Social work has placed referral for home health services. Continue home medications. Return if worse if any questions or concerns. Your laboratory studies and CAT scan imaging studies are reassuring today. Return if worse if any questions or concerns. Please use safe assist with EMS services. Prescriptions: No Action (DME) Syringes 0 .Route .MEDSUPPLY Qty: 1 3RF Dose Instruction: As directed Rx Instructions: As directed apixaban 5 mg tablet 5 mg PO BID Qty: 60 12RF pregabalin [Lyrica] 75 mg capsule 75 mg PO BID Qty: 60 3RF gabapentin 300 mg capsule 300 mg PO BEDTIME Qty: 30 6RF trazodone 100 mg tablet 100 mg PO BEDTIME Qty: 90 1RF tramadol 50 mg tablet 50 mg PO BID PRN (Reason: pain) Qty: 60 0RF (DME) MAX NEEDLES 21GX1 Qty: 50 2RF Dose Instruction: As directed Rx Instructions: USE TO INJECT TESTOSTERONE INTRAMUSCULAR ONCE A WEEK metoprolol succinate 50 mg tablet extended release 24 hr 50 mg PO ONCE PM losartan 25 mg tablet 12.5 mg PO DAILY citalopram 20 mg tablet 20 mg PO DAILY Qty: 90 3RF duloxetine 60 mg capsule,delayed release(DR/EC) 60 mg PO DAILY Qty: 90 3RF acetaminophen 325 mg Tablet 650 mg PO Q6HR Qty: 60 0RF Referrals: Kesha Mcdonald DO [Primary Care Provider, Family Practice] Stand Alone Forms: Patient Portal/API
--- NOTE | 2024-11-25 09:34 | DI.CT.S_ITS ---
PROCEDURE: CT CHEST ABD PEL W CON
--- NOTE | 2024-11-25 09:34 | DI.CT.S_ITS ---
PROCEDURE: CT CERVICAL SPINE WO CON
--- NOTE | 2024-11-25 09:34 | DI.CT.S_ITS ---
PROCEDURE: CT HEAD/BRAIN WO CON
[2024-11-25 09:50] LABS: Add Manual Diff / Slide Review NO; Hematocrit 47.7 % (41-53); Hemoglobin 15.8 g/dL (13.5-17.5); Lymphocytes Absolute Auto 1300 /uL (1100-4500); Mean Corpuscular HGB Conc 33.1 % (30-36); Mean Corpuscular Hemoglobin 28.6 PG (26-34); Mean Corpuscular Volume 86.3 fL (80-100); Platelet Count 264 X10^3/uL (150-400)
[2024-11-25 09:56] LABS: INR 1.1 (0.9-1.3); Prothrombin Time 12.6 SECONDS (9.4-12.5)
[2024-11-25 09:58] LABS: PTT Partial Thromboplastin Tim 36 SECONDS (25.1-36.5)
[2024-11-25 09:59] LABS: Alanine Aminotransferase 20 IU/L (<50); Albumin 4.7 g/dL (3.5-5.0); Albumin Globulin Ratio 1.5 (1.0-2.8); Alkaline Phosphatase 63 U/L (38-126); Blood Urea Nitrogen 20 mg/dL (9-20); Calcium 9.2 mg/dL (8.4-10.2); Carbon Dioxide 27 mmol/L (22-32); Chloride 101 mmol/L (98-107); Estimated Glomerular Filt Rate > 60 mL/min (>60); Globulin 3.2 g/dL (1.7-4.1); Glucose 100 mg/dL (70-99); HEMOLYSIS 20 (0-50); Potassium 4.1 mmol/L (3.4-5.1); Sodium 139 mmol/L (137-145); Total Protein 7.9 g/dL (6.3-8.2)
[2024-11-25] MEDS: SODIUM CHLORIDE 0.9% 500 ML 1000 ML IV (10:12)
[2024-11-25 10:32] LABS: Culture Indicated Urine Cult Not Indicated
--- NOTE | 2024-11-25 13:13 | CM.DANOTE ---
Addendum entered by ALBINO Callaway 11/25/24 18:03: DCP Update: Physical Therapy assessed pt, recommending SNF Rehab for patient. Pt , Fela, arrived at bedside. States she would like to take pt home since there is still no admittable diagnosis at this time; no resources available for private pay. Both pt and were agreeable to home health referral, no preference for agency. DRAMA DIRECTOR called [facility] who reports their start of care dates is as soon as Friday, 11/29. DRAMA DIRECTOR sent referral and signed MD orders (scanned into chart) to [facility] via secure email. Provided contact information to pt. DRAMA DIRECTOR called Medicaid Transportation with [facility], who confirms that pt does NOT have Medicaid transport benefits. DRAMA DIRECTOR provided transportation companies for pt to review if wheelchair transport necessary for appointments. DRAMA DIRECTOR educated pt and of Lift assist provided by [facility], provided non-emergency dispatch phone number. Delma Robertson [facility] Original Note: ED DRAMA DIRECTOR DCP Assessment Note: Pt is a 69yo male, resident [facility], is seen in the ED s/p multiple falls and hitting his head this morning. Pt lives in a house with his , Fela Lara) and his 2 adult sons. Pt's Primary Care Provider is Dr. Kesha Campbell and insurance is Medicare and Medicaid. Reviewed chart and discussed with multidisciplinary team pt's medical status and initial discharge needs. Per ED Provider, pt medically cleared to discharge home with home health if able to coordinate supports with pt . ED DRAMA DIRECTOR met w/patient at bedside; introduced self and role. Patient was found in bed, alert and oriented, cooperative with assessment. Pt confirmed living situation and good support in who has assumed of primary caregiver for patient. Pt expressed preference in discharging to [facility] if available after admission due to multiple falls in the last week, Something is not right with my back. Pt has a hx of [facility] in 2023 and home health with [facility] but did not get to establish care. DRAMA DIRECTOR spoke with pt , Fela, who states she does not feel equipped for a discharge home today as she states, He has been in bed for the past two days, we can barely get him up or to the bathroom. We don't have anything [DME] in place to get him up. Patient states she is still working outside of the home and is worried of how to even get the patient back in the house with their several steps into their house. Pt reports pt has a Spine Surgery appointment with Isabel Cortez PA-C on , 12/02 at 8:00am for a new patient appt, but does not know how to transport pt there with his immobility. Both pt and would be agreeable to home health referral but do not identify how they can sustain safely with pt current immobile state. Plan: Medical work up and discharge coordination to continue, DRAMA DIRECTOR to request PT evaluation for recommendation. ED staff will follow closely for coordination of discharge plans. Delma Robertson TRANSLATOR [employer] Discharge Planning/Care Management CM Discharge Assessment Start: 11/25/24 13:09 Freq: Status: Active Protocol: Document 11/25/24 13:09 MW (Rec: 11/25/24 13:12 MW [id number]) Discharge Planning Assessment Assigned Discharge [employer] Provider Kesha Campbell Insurance Medicaid,Medicare Advance Directives? No History Provided By Patient,Family Member,Medical Record Has Patient been No admitted in last 30 days? Prior Living House Arrangements Comment [facility] Members spouse,family Comment 2 adult sons (28yo and 25yo). Type of Relies on Others transporation used prior to admit Independent with ADL No 's Is patient alert and Yes oriented? Needs Assistance Bathing,Grooming,Meal Prep,Toileting,Managing With Medications,Home Chores / Shopping Caregiver for No Another DME Already Rented / Bath Bench,Wheelchair,FWW / Walker Owned Patient/Family Longterm Facility Preference Review Status In Process Please Provide Date 11/25/24 Initial DC Assessment Was Performed Next Review Type Continued Stay Review
--- NOTE | 2024-11-25 15:55 | PT.IIE ---
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 Uses wheelchair for longer distances. Recently discharged by out-pt PT due to his LE weakness getting worse with increasing back pain. Pt recently having more falls at home He is scheduled to see academic guidance specialist in [place] on . Activities of Daily Pt gets help from his for ADL's and more recently Living and IADL's from his Son who is not currently working. His works so he is home alone for periods of time. He has been independent toileting. Social History Household Members spouse,family Living Arrangements House Number of Floors ( One Floor Floors) Number of Stairs To 2 steps with rail Enter/Railing? Home Equipment Front Wheel Walker,Manual Wheelchair,Bedside Commode, Raised Toilet Seat w/Armrests,Shower Seat with Backrest Employment Status Retired Additional Social His works. History Comment The wheelchair only fits into the main part of the house and barely in the bedroom. It does not fit into the bathroom. His helps him in and out of the car. Pt was at SNF rehab in 2023 after a long hospitalization where his appendix burst and he developed a PE. 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 His voices frustration that he has been getting weaker at home instead of better. They have seen his PCP and have an appointment with the academic guidance specialist on . Their Son who is not currently working has been helping so pt is not home alone while his works. Pt has fallen multiple times at home due to LE's giving out in standing. Patient Goals Get stronger and be safe at home. Therapy Pain Assessment Pain When Pain Assessed During Mobility Pain Present Pain Present Pain Reported Location lower back Intensity 8 Scale Used Numeric (0 - 10) Description Aching,Sharp,Tender,With Movement Pain Behaviors Facial Grimacing,Holding Area,Wincing Pain Management Modification of Treatment,Re-positioning Techniques M4 PT-IP Mobility and Gait Start: 11/25/24 15:57 Freq: Status: Active Protocol: Document 11/25/24 15:55 DLM (Rec: 11/25/24 16:25 DLM Desktop) PT-Bed Mobility Assessment Rolling Level of Assist Independent Supine to Sit Supine to Sit Standby Assistance Sit to Supine Sit to Supine Standby Assistance Scooting Scooting to Edge of Standby Assistance Bed Scooting Up and Down Minimal Assistance,Moderate Assistance in Bed PT-Transfer Assessment Sit to and From Stand Sit to and from Minimal Assistance,Moderate Assistance,Use of Upper Stand Extremities Equipment Transfer Assistive Gait Belt,Front Wheeled Walker Device Transfers Transfer Destination Wheelchair Transfer Technique Squat Pivot Transfer Ability Level of Assist Minimal Assistance Comments Mobility Comments pt attempted to do a stand step transfer with the FWW but he was not able to move his feet to take steps, pt requested to do a squat pivot transfer from stretcher to wheelchair at this time without a device Pt able to roll in bed with use of rails, he reports great difficulty doing this at home without rails on flat mattress. Gait Assessment Gait Gait Assistance Contact Guard Assist Required: Distance (Feet) 0 Assistive Devices Assistive Device Gait Belt,Front Wheeled Walker Factors Limiting Gait Function Factors Limiting Decreased Activity Tolerance,Decreased Strength,Pain, Gait Function Poor Balance Comments Gait Comments pt unable to take functional steps in standing, knees are flexed in static standing and pt can not correct fully Stair Climbing Assessment Comments Stair Climbing unsafe to test at this time Comments PT-Balance Assessment Sitting Balance and Reactions Static Sitting Good Balance Ability Dynamic Sitting Good Balance Ability Standing Balance and Reactions Static Standing Poor Balance Ability Dynamic Standing Poor Balance Ability Device Used FWW M5 PT-IP Objective Assessments Start: 11/25/24 15:57 Freq: Status: Active Protocol: Document 11/25/24 15:55 DLM (Rec: 11/25/24 16:25 DLM Desktop) Orientation Orientation/Cognition Level of Alertness Alert Orientation Name,Age,Birthday,Month,Date,Year,Day of Week,Place, Situation Language Function No Deficits Noted Ability Safety Awareness Understands Safety Issues Comments he verbalizes fear of falling he has difficulty problem solving how to move safer to decrease his fall risks but he can recall how he has done things during SNF rehab Gross Range of Motion Upper Extremity ROM Assessment Within Functional Limits Lower Extremity ROM Assessment Within Functional Limits Strength Upper Extremity Strength Assessment Bilaterally Impaired Shoulder 4/5 Elbow 4+/5 Lower Extremity Strength Assessment Bilaterally Impaired Hip flexion right 3-/5, left 3+/5 Knee ext right 4/5, left 4+/5, pt unable to keep knees extended in standing Ankle DF right 4/5, left 4+/5 Comments Strength Comments his functional LE strength in standing is worse than his manual muscle testing strength in sitting straight leg raise off bed right 2+/5 and left 3-/5 Coordination Assessment Gross Coordination Gross Coordination Impaired Assessment Finger to Nose Test Minimal Impairment Pronation/Supination Moderate Impairment Test Foot Tapping Test Moderate Impairment Heel on Rivera Test Severe Impairment Sensation Assessment Sensation Gross Sensation WNL Comments Sensation Comments he reports intermittent numbness in distal LE's below knees but none at this exam Muscle Tone Comments Muscle Tone Comments atrophy in hands with left worse than right M6 PT-IP Treatment Start: 11/25/24 15:57 Freq: Status: Active Protocol: Document 11/25/24 15:55 DLM (Rec: 11/25/24 16:25 DLM Desktop) Physical Therapy Treatment Education Education Provided Safety Other Treatments Other Treatment education to manage fall risks Performed discussed use of bedside commode at home to prevent falls in bathroom His was present during therapy session this visit. M7 PT-IP Assessment and Plan Start: 11/25/24 15:57 Freq: Status: Active Protocol: Document 11/25/24 15:55 DLM (Rec: 11/25/24 16:25 DLM Desktop) PT Summary Assessment and Plan Potential Rehabilitation Fair Potential Status of Condition Unstable at Evaluation Summary Impairments Pain,Strength,Balance,Coordination,Bed Mobility, Transfers,Gait,Activity Tolerance Assessment Summary Jamal is alert and resting on a stretcher in ED at this time. He fell at home and hit his head. Testing has been negative for acute injury from his fall. Pt has chronic low back pain and has been having progressively worsening LE weakness recently. He has had multiple falls at home recently. Pt believes his LE weakness is related to his known spinal stenosis. He reports his back pain never got better after his 2021 surgery. Clinical testing shows significant LE weakness functionally and with muscle testing. His back pain is better in supine and worse sitting and standing (up to 8/10). He stands with bilateral knees flexed with the FWW and is not able to fully extend his knees for safer weight bearing. He was not able to take functional steps at this time for gait nor for a standing transfer to a chair. Pt was only able to complete a squat pivot transfer to a wheelchair with UE support on armrests. Pt and his are very fearful about returning home with pt at his current level of weakness and high fall risk. They have a wheelchair at home but it does not fit into the bathroom and barely fits into the bedroom. They have two steps to get into the house that he currently can not do. Pt is at high fall risk for further falls at home in his current condition. Recommend SNF rehab to assist with pain management, strengthening and progression back to functional gait as possible. Goals Bed Mobility Goal Independent Transfer Goal Contact Guard Assistance,Front Wheeled Walker Gait Goal Minimal Assistance,Front Wheel Walker Gait Distance 50 feet Other Goals up/down 2 steps with rail and min assist Days to Meet Goals 10 Frequency of Treatment Frequency Of Once a Day Treatment Treatment Plan Physical Therapy Bed Mobility Training,Transfer Training,Gait Training, Treatment Plan Therapeutic Exercise,Balance Retraining,Discharge Planning,Hot or Cold Pack,Neuromuscular Re-ed,Manual Therapy Precautions Other Precautions hx of falls with LE's buckling, chronic back pain hx spinal stenosis with back pain not improving after fusion 2021 Recommendations To Nursing Amount of Assist 2 Person Assist Needed Discharge Recommendations PT Discharge SNF Rehab Recommendations Other Discharge he is a high fall risk Recommendations Transportation Needs Wheelchair/Cabulance at Discharge - PT assist 2
--- NOTE | 2024-12-01 19:33 | PC.NURSE ---
Late entry: trauma activation flowsheet
== END 2024-11-25 16:50 | disposition home or self-care (01) ==
PROVIDERS: Emergency Provider Emergency Medicine; Family Provider Family Medicine; PCP Family Medicine
DX: S00.03XA Contusion of scalp, initial encounter (principal); M54.50 Low back pain, unspecified; W18.30XA Fall on same level, unspecified, initial encounter; Z79.01 Long term (current) use of anticoagulants
CPT/HCPCS: 36415; 70450; 71260; 72125; 74177; 80053; 81003; 81015; 85025; 85610; 85730; 93005; 93010; 96360; 97163; 99284; Q9967

== ENCOUNTER → 2024-12-08 11:04 | Outpatient (CLI) | payer MEDICARE, MEDICAID, SELFPAY ==
[2023-12-12 02:13] VITALS: BMI 29.9
--- NOTE | 2024-12-08 11:07 | DI.MRI.S_ITS ---
PROCEDURE: MR LUMBAR SPINE WO CON INDICATIONS: Lumbar pain TECHNIQUE: Noncontrast sagittal T1 spin echo and T2 fast echo, sagittal STIR, and T2 fast spin echo through the lumbar spine. In cases with scoliosis, additional coronal T2 fast spin echo may be performed. COMPARISON: [facility], MR, MR LUMBAR SPINE WO/W CON, 11/05/2022, 8:06. [facility], CR, XR LUMBAR SPINE 2 OR 3 VIEWS, 12/02/2024, 8:10. FINDINGS: Image quality: Excellent. Alignment and Curvature: Posterior fusion at L4 through S1. Trace retrolisthesis of L1 on L2, L2 on L3, L3 on L4. Bone Marrow: Marrow is of normal overall signal. Reactive endplate changes are present at L3-4. No acute vertebral body compression fractures. Spinal Cord: Conus medullaris terminates at the L1 level. Visualized cord demonstrates normal signal and size. Paraspinous Soft Tissues: No paravertebral masses. Increased T2 signal within the kidneys bilaterally. Discs: Multilevel overall moderate disc desiccation. T12-L1: Mild disc bulge with minimal canal narrowing. Moderate bilateral foraminal narrowing. Facet and ligamentum flavum hypertrophy. No significant interval change. L1-L2: Mild disc bulge with mild spinal stenosis. Minimal bilateral foraminal narrowing slightly progressive. Facet and ligamentum flavum hypertrophy are present. L2-L3: Mild disc bulge with mild spinal stenosis. Moderate bilateral foraminal narrowing with facet and ligamentum flavum hypertrophy, relatively stable. L3-L4: Mild disc bulge with moderate spinal stenosis. Moderate to severe left and mild right foraminal narrowing with facet and ligamentum flavum hypertrophy. No interval progression. L4-L5: Postsurgical change. No spinal stenosis. [id number] bilateral foraminal narrowing, left greater than right, unchanged. L5-S1: Postsurgical changes. No spinal stenosis. Moderate to severe right and no left foraminal narrowing. Overall appearance is stable. IMPRESSION: Posterior fusion L4 through S1. Multilevel spinal stenosis most severe at L3-4, unchanged. Multilevel foraminal narrowing most severe at L3-4, L5-S1, unchanged. Dictated by: Myra Kuhn M.D. on 12/10/2024 at 14:17 Approved by: Myra Kuhn M.D. on 12/10/2024 at 14:30
== END ==
LOC: MRI 11:06
PROVIDERS: Family Provider Family Medicine; PCP Family Medicine; Referring Provider Family Medicine; Visit Provider Physician Assistant
DX: S39.012A Strain of muscle, fascia and tendon of lower back, initial encounter (principal); M47.816 Spondylosis without myelopathy or radiculopathy, lumbar region; M48.061 Spinal stenosis, lumbar region without neurogenic claudication; M48.07 Spinal stenosis, lumbosacral region; R53.81 Other malaise; Z98.1 Arthrodesis status; X58.XXXA Exposure to other specified factors, initial encounter
CPT/HCPCS: 72148